=== PATIENT | female | born 1960 | race African-American/Black ===

== ENCOUNTER 2016-06-12 16:26 | Inpatient (IN) | payer OTHER, MEDICARE ==
[2016-06-12] VITALS (23 sets, daily range): BP systolic 87–130; BP diastolic 43–77; PULSE 108–151; RESP 20–21; TEMP 98–104.6; O2SAT 100
[~2016-06-12] VITALS: Ht 175.3 cm; Wt 95.3 kg
[~2016-06-12 16:26] MED LIST: 1-ME1LIQ PO; ASPI1TAB7 PO; BACL10TA PO; LISI-363 PO; MECL12.574 PO; PERC10TA26 PO; PREG75 PO; RANI150T PO; SERT-132 PO; TEMA15CA PO
[2016-06-12] MEDS ORDERED: SUCCINYLCHOLINE CHLORIDE 200 MG/10 ML VIAL ONE (16:29)
[2016-06-12] MEDS ORDERED: ETOMIDATE 20 MG/10 ML VIAL ONE (16:29)
[2016-06-12] MEDS ORDERED: VANCOMYCIN INJ 1 MG in SODIUM CHLOR 0.9% 250 ML INJ 250 ML IV STA (16:57)
[2016-06-12] MEDS ORDERED: SODIUM CHLOR 0.9% 1000 ML INJ 1,000 ML IV ONE ×3 (16:57)
[2016-06-12] MEDS ORDERED: PIPERACIL-TAZO 4.5 GM PREMIX 100 ML IV STA (16:57)
[2016-06-12] MEDS ORDERED: AZITHROMYCIN INJ 500 MG in SODIUM CHLOR 0.9% 250 ML INJ 250 ML IV STA (16:57)
[2016-06-12] MEDS ORDERED: SUCCINYLCHOLINE CHLORIDE 200 MG/10 ML VIAL IV PUSH ONE (17:00)
[2016-06-12] MEDS ORDERED: ACETAMINOPHEN 650 MG SUPP RECTAL ONE (17:00)
[2016-06-12] MEDS ORDERED: ETOMIDATE 20 MG/10 ML VIAL IV PUSH ONE (17:00)
[2016-06-12 17:17] LABS: AUTOMATED NEUTROPHIL # 10.3 TH/MM3 (1.8-7.7); BASOPHIL % 0.2 % (0.0-2.0); HEMATOCRIT 35.4 % (35.0-46.0); HEMO FLAGS DIFF FINAL; LYMPH % 9.7 % (9.0-44.0); LYMPHOCYTE # 1.2 TH/MM3 (1.0-4.8); MEAN CELL VOLUME 81.3 FL (80.0-100.0); MEAN CORPUSCULAR HEMOGLOBIN 26.1 PG (27.0-34.0); MEAN CORPUSCULAR HGB CONC 32.1 % (32.0-36.0); MONO % 8.5 % (0.0-8.0); NEUT % 81.6 % (16.0-70.0); PLATELET COUNT 204 TH/MM3 (150-450); RED BLOOD COUNT 4.35 MIL/MM3 (4.00-5.30); RED CELL DISTRIBUTION WIDTH 16.8 % (11.6-17.2); WHITE BLOOD COUNT 12.6 TH/MM3 (4.0-11.0)
--- NOTE | 2016-06-12 17:20 | RADRPT ---
EXAM DATE/TIME: 06/12/2016 16:50 [facility] COMPARISON: No previous studies available for comparison. INDICATIONS : Evaluate for intubation placement. MEDICAL HISTORY : None. SURGICAL HISTORY : None. ENCOUNTER: Initial ACUITY: 1 day PAIN SCORE: Non-responsive. LOCATION: Bilateral chest FINDINGS: The lungs are clear without infiltrate, nodule, or mass. There is no appreciable pleural effusion fo r technique. Heart and mediastinum are unremarkable. Left subclavian line is present with tip overla pping the expected region of the SVC. No definite pneumothorax is seen for technique.ET tube is prese nt with tip overlapping approximately 3 cm above the caren. NG tube is present with tip in the stoma ch. CONCLUSION: No acute cardiopulmonary disease. Jose Martinez MD on June 12, 2016 at 17:18 Board Certified Radiologist. This report was verified electronically.
[2016-06-12 17:27] LABS: BACTERIA, URINE MOD /hpf; BLOOD, URINE MOD (NEG); GLUCOSE,URINE NEG (NEG); HYALINE CAST, URINE 104 /lpf (RARE); KETONE, URINE 40 mg/dL (NEG); NITRITE,URINE NEG (NEG); PH, URINE 5.5 (5.0-8.5); SQUAMOUS EPITHELIAL CELL URINE 3 /hpf (0-5); URINE COLOR YELLOW (YELLW/STRAW)
[2016-06-12 17:29] LABS: ALT (GPT) 115 U/L (10-53); ANION GAP 20 MEQ/L (5-15); AST (GOT) 234 U/L (15-37); BICARBONATE 15.5 MEQ/L (21.0-32.0); BLOOD UREA NITROGEN 67 MG/DL (7-18); CHLORIDE 121 MEQ/L (98-107); GLOMERULAR FILTRATION RATE 18 ML/MIN (>89); POTASSIUM 3.6 MEQ/L (3.5-5.1)
[2016-06-12 17:30] LABS: COMMENT (UR) CATH-CULTURE IND; CULTURE IF INDICATED CATH CULTURE IND
[2016-06-12] MEDS ORDERED: fentaNYL DRIP 250 ML IV SCH (17:30)
[2016-06-12] MEDS ORDERED: MIDAZOLAM HCL 2 MG/2 ML VIAL IV PUSH ONE (17:30)
[2016-06-12 17:31] LABS: ALKALINE PHOSPHATASE 70 U/L (45-117); TOTAL BILIRUBIN ADULT 0.5 MG/DL (0.2-1.0)
[2016-06-12 17:37] LABS: SODIUM (NA) 156 MEQ/L (136-145)
[2016-06-12] MEDS ORDERED: MISCELLANEOUS NURSING INFORMATION XX SCH (18:00)
[2016-06-12] MEDS ORDERED: CHLORHEXIDINE GLUCONATE 2 % 1 PACK (2 CLOTHS) TOP PRN (18:00)
[2016-06-12] MEDS ORDERED: RESP: ALBUTEROL 2.5 MG/IPRATROPIUM 0.5 MG NEB (PRN) INH (18:00)
--- NOTE | 2016-06-12 18:00 | RADRPT ---
EXAM DATE/TIME: 06/12/2016 17:30 [facility] COMPARISON: CHEST SINGLE AP, June 12, 2016, 16:50. INDICATIONS : Evaluate OG tube reposition MEDICAL HISTORY : None. SURGICAL HISTORY : None. ENCOUNTER: Subsequent ACUITY: 1 day PAIN SCORE: Non-responsive. LOCATION: Bilateral chest FINDINGS: The lungs are clear without infiltrate, nodule, or mass. There is no appreciable pleural effusion fo r technique. Heart and mediastinum are unremarkable. Lines and tubes are present not significantly c hanged. CONCLUSION: No acute cardiopulmonary disease.. Jose Martinez MD on June 12, 2016 at 17:57 Board Certified Radiologist. This report was verified electronically.
[2016-06-12 18:18] LABS: BLOOD GAS BASE EXCESS -10.9 mmol/L (-2-2); BLOOD GAS CARBOXYHEMOGLOBIN 0.4 % (0-4); BLOOD GAS HCO3 13 mmol/L (22-26); BLOOD GAS METHEMOGLOBIN 0.6 % (0-2); BLOOD GAS O2 HGB SATURATION 99 % (90-100); BLOOD GAS OXYGEN CONTENT 16.2 Vol % (12.0-20.0); BLOOD GAS PCO2 20 mmHg (38-42); BLOOD GAS PO2 514 mmHG (61-120); BLOOD GAS TOTAL HGB 10.7 G/DL (12.0-16.0); TEMP CORR TO 98.6
[2016-06-12 18:19] LABS: CRITICAL VALUE YES; DRAW SITE RT RADIAL; FIO2 100 %; NUMBER OF ARTERIAL PUNCTURES 1; OXYGEN DEVICE VENTILATOR; STAT YES; ULNAR PULSE PRESENT; VENT SETTINGS 500/18/+5 AC
[2016-06-12] MEDS ORDERED: MIDAZOLAM 100 MG/ML INJ 100 ML ONE (18:48)
--- NOTE | 2016-06-12 18:58 | PD ---
HPI Chief Complaint: Altered Mental Status Time Seen by Provider: 16:57 Travel History International Travel<30 days: No Contact w/Intl Traveler<30days: No Traveled to known affect area: No History of Present Illness HPI 56-year-old female came to the emergency room brought in by EMS emergently as altered mental status, hypoxia and temperature 101. Patient was unable to communicate due to her altered mental status. As per EMS not much history was available from the family but she has history of CVA as baseline but can communicate. Past few days she has not been talking much. Patient's oxygen saturation was in the low 70s upon EMS arrival. They had her on oxygen via nonrebreather and sats of 93%. GCS was 6. PFSH Past Medical History Narrative Medical List of her past medical, surgical, social and family history was reviewed from the nursing note. 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) Diminished Hearing: Yes Endocrine: No Gastrointestinal Disorders: Yes Genitourinary: No Musculoskeletal: No Neurologic: No Psychiatric: No Reproductive: No Respiratory: No Tetanus Vaccination: Unknown ?: Not : 3 Para: 2 Miscarriage: 1 Past Surgical History Surgical History: Unable to Obtain AICD: No Arteriovenous Shunt: No Gynecologic Surgery: Yes (C SECTION X 1) Hysterectomy: Yes (PARTIAL) Insulin Pump: No Joint Replacement: No Pacemaker: No Other Surgery: Yes Social History Alcohol Use: No Tobacco Use: No Substance Use: No Allergies-Medications (Allergen,Severity, Reaction): Coded Allergies: DO NOT USE (Verified Allergy, Mild, Hallucinations, 06/12/16) Comments List of her allergies reviewed from the nursing note. Reported Meds & Prescriptions Reported Meds & Active Scripts Active Reported Temazepam 15 Mg Cap 15 Mg PO HS PRN Amlodipine (Amlodipine Besylate) 10 Mg Tab 10 Mg PO DAILY Meclizine (Meclizine HCl) 25 Mg Tab 25 Mg PO QID PRN Ranitidine (Ranitidine HCl) 150 Mg Tab 150 Mg PO BID Baclofen 10 Mg Tab 10 Mg PO TID Sertraline (Sertraline HCl) 100 Mg Tab 100 Mg PO DAILY Lyrica (Pregabalin) 75 Mg Cap 75 Mg PO BID Narrative Medication List of her home medications reviewed from the nursing note. Review of Systems Except as stated in HPI: all other systems reviewed are Neg Physical Exam Narrative GENERAL: Unresponsive, severe distress SKIN: Focused skin assessment warm/dry. HEAD: Atraumatic. Normocephalic. EYES: Pupils equal and round. No scleral icterus. No injection or drainage. ENT: No nasal bleeding or discharge. Dry mucous membrane with coated tongue. Extremely poor dentition with gingivitis and halitosis NECK: Trachea midline. No JVD. CARDIOVASCULAR: Regular rate and rhythm. Tachycardia. No murmur appreciated. RESPIRATORY: No accessory muscle use. Clear to auscultation. Breath sounds equal bilaterally. GASTROINTESTINAL: Abdomen soft, non-tender, nondistended. Hepatic and splenic margins not palpable. MUSCULOSKELETAL: No obvious deformities. No clubbing. No cyanosis. No edema. NEUROLOGICAL: Patient is unresponsive GCS of 3 PSYCHIATRIC: Unable to assess Data Data Last Documented VS Vital Signs Date Time Temp Pulse Resp B/P Pulse Ox O2 Delivery O2 Flow Rate FiO2 06/12/16 18:30 100.8 125 118/66 100 06/12/16 16:51 100 Orders Etomidate Inj (Amidate Inj) (06/12/16 16:29) Succinylcholine Inj (Quelicin Inj) (06/12/16 16:29) Complete Blood Count With Diff (06/12/16 16:52) Comprehensive Metabolic Panel (06/12/16 16:52) Urinalysis - C+S If Indicated (06/12/16 16:52) Lactic Acid Sepsis Protocol (06/12/16 16:52) Chest, Single Ap (06/12/16 16:52) Blood Culture (06/12/16 16:52) Iv Access Insert/Monitor (06/12/16 16:52) Oxygen Administration (06/12/16 16:52) Oximetry (06/12/16 16:52) Blood Glucose (06/12/16 16:52) Acetaminophen Supp (Tylenol Supp) (06/12/16 17:00) Ecg Monitoring (06/12/16 16:57) Ct Brain W/O Iv Contrast(Rout) (06/12/16 16:57) Azithromycin Inj (Zithromax Inj) (06/12/16 16:57) Vancomycin Inj (Vancomycin Inj) (06/12/16 16:57) Piperacil-Tazo 4.5 Gm Premix (Zosyn 4.5 (06/12/16 16:57) Sodium Chlor 0.9% 1000 Ml Inj (Ns 1000 M (06/12/16 16:57) Sodium Chlor 0.9% 1000 Ml Inj (Ns 1000 M (06/12/16 16:57) Sodium Chlor 0.9% 1000 Ml Inj (Ns 1000 M (06/12/16 16:57) Arterial Blood Gas (Abg) (06/12/16 ) Urinary Catheter Insert/Apply (06/12/16 16:59) ^ Orogastric Tube (06/12/16 16:59) Succinylcholine Inj (Quelicin Inj) (06/12/16 17:00) Etomidate Inj (Amidate Inj) (06/12/16 17:00) Chest, Single Ap (06/12/16 ) Midazolam Inj (Versed Inj) (06/12/16 17:30) Fentanyl Inj (Fentanyl Inj) (06/12/16 17:30) Midazolam Inj (Versed Inj) (06/12/16 17:30) Neurological Rass Scale Q30MX2,Q2HX4,Q4H (06/12/16 17:21) Neurological Rass Scale Q30MX2,Q2HX4,Q4H (06/12/16 17:21) Fentanyl Drip (Fentanyl Drip) (06/12/16 17:30) Urine Culture (06/12/16 16:55) Ct Thorax/ Chest Wo Iv Contras (06/12/16 ) Ct Abd/Pel W/O Iv Contrast (06/12/16 ) Oral Contrast - Adult (06/12/16 17:49) Admit To Inpatient (06/12/16 ) Parts Designer / Telemetry LUCY.Q8H (06/12/16 17:47) ^ Orogastric Tube (06/12/16 ) Diet Npo Except Meds (06/12/16 Dinner) Sodium Chloride 0.9% Flush (Ns Flush) (06/12/16 18:00) Sodium Chloride 0.9% Flush (Ns Flush) (06/12/16 21:00) Famotidine Inj (Pepcid Inj) (06/12/16 21:00) Albuterol-Ipratropium Neb (Duoneb Neb) (06/12/16 22:00) Comprehensive Metabolic Panel (06/13/16 06:00) Complete Blood Count With Diff (06/13/16 06:00) Chest, Single Ap (06/13/16 ) Resp Ventilation- Volume (06/12/16 ) Consult Pt Eval & Treat (06/12/16 17:47) Ot Request For Service (06/12/16 17:47) Consult Infectious Disease (06/12/16 ) Scd Bilateral/Knee High LUCY.BID (06/12/16 17:47) ^ Initiate Protocol (06/12/16 17:47) ^ Instruction (06/12/16 17:47) [facility] Nursing Information (06/12/16 18:00) Chlorhexidine 2% Cloth (Chlorhexidine 2% (06/13/16 04:00) Chlorhexidine 2% Cloth (Chlorhexidine 2% (06/12/16 18:00) [facility] Pcr Surveillance (06/12/16 17:47) Neurological Rass Scale LUCY.Q2H.E (06/12/16 17:47) ^ Elevate Head Of Bed (06/12/16 17:47) Chlorhexidine 0.12% Liq (Peridex 0.12% L (06/12/16 20:00) Restraints Non-Violent LUCY.Q3H (06/12/16 17:47) Ventilator Weaning Readiness LUCY.DAILY@0800 (06/12/16 17:47) Resp Spont Breath Trial (Sbt) (06/13/16 06:00) Arterial Blood Gas (Abg) (06/13/16 06:00) Inpatient Certification (06/12/16 ) Piperacil-Tazo 2.25 Gm Premix (Zosyn 2.2 (06/12/16 23:00) Albuterol-Ipratropium Neb (Duoneb Neb) (06/12/16 18:00) Consult Nephrology (06/12/16 ) Water Sterile For I... W/Sodium Bicarbon (06/12/16 20:00) Admit Order (Ed Use Only) (06/12/16 18:32) (Hub Use Only)Inp Phy Cons/Ref (06/12/16 ) (Hub Use Only)Inp Phy Cons/Ref (06/12/16 ) Labs Laboratory Tests Test 06/12/16 06/12/16 06/12/16 14:37 16:55 18:06 Herpes Simplex Virus I DNA Negative (PCR) Herpes Simplex Virus II DNA Negative (PCR) Urine Osmolality 521 MOSM/KG Urine Random Sodium 31 MEQ/L Sodium Level 156 MEQ/L Potassium Level 3.6 MEQ/L Chloride Level 121 MEQ/L Carbon Dioxide Level 15.5 MEQ/L Anion Gap 20 MEQ/L Blood Urea Nitrogen 67 MG/DL Creatinine 3.19 MG/DL Estimat Glomerular Filtration 18 ML/MIN Rate Random Glucose 113 MG/DL Lactic Acid Level 6.6 mmol/L Calcium Level 8.6 MG/DL Total Bilirubin 0.5 MG/DL Aspartate Amino Transf 234 U/L (AST/SGOT) Alanine Aminotransferase 115 U/L (ALT/SGPT) Alkaline Phosphatase 70 U/L Total Protein 8.0 GM/DL Albumin 2.8 GM/DL Urine Opiates Screen NEG Urine Barbiturates Screen NEG Urine Amphetamines Screen NEG Urine Benzodiazepines Screen POS Urine Cocaine Screen NEG Urine Cannabinoids Screen NEG White Blood Count 12.6 TH/MM3 Red Blood Count 4.35 MIL/MM3 Hemoglobin 11.3 GM/DL Hematocrit 35.4 % Mean Corpuscular Volume 81.3 FL Mean Corpuscular Hemoglobin 26.1 PG Mean Corpuscular Hemoglobin 32.1 % Concent Red Cell Distribution Width 16.8 % Platelet Count 204 TH/MM3 Mean Platelet Volume 9.5 FL Neutrophils (%) (Auto) 81.6 % Lymphocytes (%) (Auto) 9.7 % Monocytes (%) (Auto) 8.5 % Eosinophils (%) (Auto) 0.0 % Basophils (%) (Auto) 0.2 % Neutrophils # (Auto) 10.3 TH/MM3 Lymphocytes # (Auto) 1.2 TH/MM3 Monocytes # (Auto) 1.1 TH/MM3 Eosinophils # (Auto) 0.0 TH/MM3 Basophils # (Auto) 0.0 TH/MM3 CBC Comment DIFF FINAL Differential Comment Urine Color YELLOW Urine Turbidity HAZY Urine pH 5.5 Urine Specific [place] 1.021 Urine Protein 100 mg/dL Urine Glucose (UA) NEG mg/dL Urine Ketones 40 mg/dL Urine Occult Blood MOD Urine Nitrite NEG Urine Bilirubin NEG Urine Urobilinogen 2.0 MG/DL Urine Leukocyte Esterase NEG Urine RBC 1 /hpf Urine WBC 3 /hpf Urine Squamous Epithelial 3 /hpf Cells Urine Bacteria MOD /hpf Urine Hyaline Casts 104 /lpf Microscopic Urinalysis Comment CATH-CULTURE IND Blood Gas Puncture Site RT RADIAL Blood Gas Patient Temperature 98.6 Blood Gas HCO3 13 mmol/L Blood Gas Base Excess -10.9 mmol/L Blood Gas Oxygen Saturation 99 % Arterial Blood pH 7.42 Arterial Blood Partial 20 mmHg Pressure CO2 Arterial Blood Partial 514 mmHG Pressure O2 Arterial Blood Oxygen Content 16.2 Vol % Arterial Blood 0.4 % Carboxyhemoglobin Arterial Blood Methemoglobin 0.6 % Blood Gas Hemoglobin 10.7 G/DL Oxygen Delivery Device VENTILATOR Blood Gas Ventilator Setting 500/18/+5 AC Blood Gas Inspired Oxygen 100 % MDM Medical Decision Making Medical Screen Exam Complete: Yes Emergency Medical Condition: Yes Medical Record Reviewed: Yes Interpretation(s) Twelve-lead EKG was reviewed by me. Normal sinus rhythm, left axis deviation, tachycardia, nonspecific ST-T wave changes. Heart rate of 135 bpm. Differential Diagnosis Sepsis, pneumonia, UTI, electrolyte abnormality, dehydration Narrative Course 6:54 PM as soon as patient arrived given her GCS status and respiratory status I made the decision to intubate her. After she was successfully intubated and OG tube and Cortes tube inserted patient was started on fluid and antibiotics for sepsis protocol. A central line was inserted by me given her poor peripheral IV status. Soon after the family had arrived and I spoke with the and her cousin and updated them about patient's condition. Chest x-ray was reviewed by me which showed her ET tube and central line in good position. I asked the nurse to push the NG tube by 5 cm and a repeat chest x-ray was ordered. I have spoken with the meat seafood associate to admit the patient. Patient is in acute renal failure with severe dehydration. UA suggestive of UTI. Critical Care Narrative Aggregate critical care time was 75 minutes. Time to perform other separately billable procedures was not included in the critical care time. My time did not include minutes spent treating any other patients simultaneously or on activities that did not directly contribute to the patient's treatment. The services I provided to this patient were to treat and/or prevent clinically significant deterioration that could result in: Altered mental status, respiratory failure, sepsis, dehydration, renal failure I provided critical care services requiring my management, as noted below: Chart data review, documentation time, medication orders and management, vital sign assessments/reviewing monitor data, ordering and reviewing lab tests, ordering and interpreting/reviewing x-rays and diagnostic studies, care of the patient and discussion of the patient with the admitting physicians. Procedures Procedure Narrative After the risks and benefits were discussed the following procedure was performed: INTUBATION: The patient was put in optimal position for the procedure. Rapid sequence intubation was initiated by me using 20 milligrams of etomidate IV and 100 milligrams of succinylcholine IV. The patient was intubated with a 7.5 cuffed endotracheal tube. Tube placement was confirmed by visualization of the tube and balloon passing through the cords, capnometry and subsequent chest x-ray. Breath sounds were equal and well aerated bilaterally postintubation. No breath sounds over stomach. Patient tolerated procedure well. CENTRAL VENOUS LINE: The site was prepped with Betadine and sterilely draped. It was infiltrated with 1% lidocaine plain. The deep vein was cannulated using normal Seldinger technique. A triple lumen central line was placed in the left subclavian site and secured with simple interrupted suture. The site was sterilely dressed. The patient tolerated the procedure well. EKG Prior to Arrival: No Physician Communication Physician Communication Dr. Hair Diagnosis Primary Impression: Altered mental status Qualified Code: R40.2432 - Lenoir coma scale total score 3-8, at arrival to emergency department Additional Impressions: Respiratory failure Qualified Code: J96.00 - Acute respiratory failure, unspecified whether with hypoxia or hypercapnia Renal failure Dehydration Severe sepsis UTI (urinary tract infection) Qualified Code: N39.0 - Urinary tract infection without hematuria, site unspecified Admitting Information Admitting Physician Requests: Admit Cristóbal Guevara MD Jun 12, 2016 18:58
[2016-06-12 19:06] LABS: LACTIC ACID GHOST NOT REPORTABLE
[2016-06-12] MEDS: MIDAZOLAM 100 MG/ML INJ 100 ML IV SCH ×2 (19:07→23:44)
[2016-06-12] MEDS ORDERED: AMLO10TA2 PO (19:12)
[2016-06-12] MEDS ORDERED: RANI150T PO (19:12)
[2016-06-12] MEDS ORDERED: TEMA15CA PO (19:12)
[2016-06-12] MEDS ORDERED: SERT-129 PO (19:12)
[2016-06-12] MEDS ORDERED: BACL10TA PO (19:12)
[2016-06-12] MEDS ORDERED: MECL-62 PO (19:12)
[2016-06-12] MEDS ORDERED: LYRI75CA PO (19:12)
[2016-06-12] MEDS ORDERED: DIATRIZOATE MEGLUM/DIATRIZOATE SOD 9 ML CUP ONE (19:49)
[2016-06-12] MEDS: CHLORHEXIDINE 0.12% (ORAL KIT) 15 ML CUP MT SCH (20:00)
--- NOTE | 2016-06-12 20:18 | HHI.HP ---
HPI Service Critical Care Medicine Primary Care Physician Unknown Admission Diagnosis sepsis, respiratory failure, altered mental status Diagnosis: Travel History International Travel<30 Days: No Contact w/Intl Traveler <30 Da: No Traveled to Known Affected Are: No History of Present Illness 56-year-old female brought in by EMS emergently as altered mental status, hypoxia and temperature 104. Patient has a history of CVA many years ago. Per caregiver she didn't feel well since yesterday and wasn't taking any of medications including baclofen. Patient was unable to communicate due to her altered mental status. As per EMS not much history was available from the family but she has history of CVA as baseline but communicates. In the emergency department patient's oxygen saturation was low 70s upon EMS arrival. They had her on oxygen via nonrebreather and sats of 93%. GCS was 6 and she was intubated by ER attending for an airway protection. Past Family Social History Allergies: Coded Allergies: DO NOT USE (Verified Allergy, Mild, Hallucinations, 06/12/16) Past Medical History Hypertension, History of cerebrovascular accident, Bedridden status Past Surgical History History of Partial hysterectomy Reported Medications Reported Meds & Active Scripts Active Reported Temazepam 15 Mg Cap 15 Mg PO HS PRN Amlodipine (Amlodipine Besylate) 10 Mg Tab 10 Mg PO DAILY Meclizine (Meclizine HCl) 25 Mg Tab 25 Mg PO QID PRN Ranitidine (Ranitidine HCl) 150 Mg Tab 150 Mg PO BID Baclofen 10 Mg Tab 10 Mg PO TID Sertraline (Sertraline HCl) 100 Mg Tab 100 Mg PO DAILY Lyrica (Pregabalin) 75 Mg Cap 75 Mg PO BID Active Ordered Medications Current Medications Medications (Trade) Dose Ordered Sig/[place] Route PRN Reason Start Time Stop Time Status Last Admin Dose Admin Midazolam HCl 100 ml @ 0 mls/hr TITRATE IV 06/12/16 17:30 06/12/16 19:07 Fentanyl Citrate (fentaNYL DRIP) 250 ml @ 0 mls/hr TITRATE IV 06/12/16 17:30 Sodium Chloride (NS Flush) 2 ml UNSCH PRN IV FLUSH FLUSH AFTER USING IV ACCESS 06/12/16 18:00 Sodium Chloride (NS Flush) 2 ml BID IV FLUSH 06/12/16 21:00 Famotidine (Pepcid Inj) 20 mg Q12HR IV PUSH 06/12/16 21:00 Miscellaneous Information 1 [id number] XX 06/12/16 18:00 Chlorhexidine Gluconate (Chlorhexidine 2% Cloth) 3 pack Taper DAILY@04 TOP 06/13/16 04:00 06/09/17 03:59 Chlorhexidine Gluconate (Chlorhexidine 2% Cloth) 3 pack UNSCH PRN TOP HYGIENIC CARE 06/12/16 18:00 Chlorhexidine Gluconate 15 ml 15 ml BID@08,20 MT 06/12/16 20:00 Piperacillin Sod/ Tazobactam Sod 50 ml @ 100 mls/hr Q6H IV 06/12/16 23:00 Sodium Bicarbonate/ Sterile Water (Sodium Bicarbonate 8.4% Inj/Sterile Water For Inj) 1,000 ml @ 150 mls/hr Q6H40M IV 06/12/16 20:00 06/12/16 20:24 Pregabalin (Lyrica) 75 mg BID PO 06/12/16 21:00 Sertraline HCl (Zoloft) 100 mg DAILY PO 06/12/16 20:15 Baclofen 10 mg 10 mg TID PO 06/12/16 20:15 Sodium Chloride (NS 1000 ml Inj) 1,000 ml @ 185 mls/hr Q5H25M IV 06/12/16 20:30 06/12/16 21:00 Family History Noncontributory Social History Negative 3 Physical Exam Vital Signs Vital Signs Date Time Temp Pulse Resp B/P Pulse Ox O2 Delivery O2 Flow Rate FiO2 06/12/16 19:44 75 06/12/16 19:41 100.0 117 20 109/59 100 Ventilator 75 06/12/16 19:00 100.4 122 116/64 100 06/12/16 18:45 100.8 123 117/64 100 06/12/16 18:30 100.8 125 118/66 100 06/12/16 18:15 100.9 126 116/66 100 06/12/16 17:30 102.2 130 123/67 100 06/12/16 17:15 103.1 134 130/72 100 06/12/16 17:09 103.1 135 128/75 100 06/12/16 17:09 100 06/12/16 16:57 103.6 145 128/74 100 06/12/16 16:51 100 100 06/12/16 16:50 103.3 138 100 06/12/16 16:47 102.6 06/12/16 16:44 100.9 138 124/77 100 06/12/16 16:42 142 105/73 100 06/12/16 16:41 143 105/73 100 06/12/16 16:33 104.6 141 87/43 100 06/12/16 16:29 151 115/70 Physical Exam GENERAL: Elderly woman sedated and intubated SKIN: Warm and dry. HEAD: Normocephalic. EYES: No scleral icterus. No injection or drainage. NECK: Supple, trachea midline. No JVD or lymphadenopathy. CARDIOVASCULAR: Regular rate and rhythm without murmurs, gallops, or rubs. RESPIRATORY: Breath sounds equal bilaterally. No accessory muscle use. GASTROINTESTINAL: Abdomen soft, non-tender, nondistended. MUSCULOSKELETAL: No cyanosis, or edema. BACK: Nontender without obvious deformity. No CVA tenderness. EXTREMITIES: No clubbing cyanosis or edema Laboratory Laboratory Tests Test 06/12/16 06/12/16 06/12/16 16:55 18:06 19:02 White Blood Count 12.6 Red Blood Count 4.35 Hemoglobin 11.3 Hematocrit 35.4 Mean Corpuscular Volume 81.3 Mean Corpuscular Hemoglobin 26.1 Mean Corpuscular Hemoglobin 32.1 Concent Red Cell Distribution Width 16.8 Platelet Count 204 Mean Platelet Volume 9.5 Neutrophils (%) (Auto) 81.6 Lymphocytes (%) (Auto) 9.7 Monocytes (%) (Auto) 8.5 Eosinophils (%) (Auto) 0.0 Basophils (%) (Auto) 0.2 Neutrophils # (Auto) 10.3 Lymphocytes # (Auto) 1.2 Monocytes # (Auto) 1.1 Eosinophils # (Auto) 0.0 Basophils # (Auto) 0.0 CBC Comment DIFF FINAL Differential Comment Urine Color YELLOW Urine Turbidity HAZY Urine pH 5.5 Urine Specific [place] 1.021 Urine Protein 100 Urine Glucose (UA) NEG Urine Ketones 40 Urine Occult Blood MOD Urine Nitrite NEG Urine Bilirubin NEG Urine Urobilinogen 2.0 Urine Leukocyte Esterase NEG Urine RBC 1 Urine WBC 3 Urine Squamous Epithelial 3 Cells Urine Bacteria MOD Urine Hyaline Casts 104 Microscopic Urinalysis Comment CATH-CULTURE IND Sodium Level 156 Potassium Level 3.6 Chloride Level 121 Carbon Dioxide Level 15.5 Anion Gap 20 Blood Urea Nitrogen 67 Creatinine 3.19 Estimat Glomerular Filtration 18 Rate Random Glucose 113 Lactic Acid Level 6.6 5.1 Calcium Level 8.6 Total Bilirubin 0.5 Aspartate Amino Transf 234 (AST/SGOT) Alanine Aminotransferase 115 (ALT/SGPT) Alkaline Phosphatase 70 Total Protein 8.0 Albumin 2.8 Blood Gas Puncture Site RT RADIAL Blood Gas Patient Temperature 98.6 Blood Gas HCO3 13 Blood Gas Base Excess -10.9 Blood Gas Oxygen Saturation 99 Arterial Blood pH 7.42 Arterial Blood Partial 20 Pressure CO2 Arterial Blood Partial 514 Pressure O2 Arterial Blood Oxygen Content 16.2 Arterial Blood 0.4 Carboxyhemoglobin Arterial Blood Methemoglobin 0.6 Blood Gas Hemoglobin 10.7 Oxygen Delivery Device VENTILATOR Blood Gas Ventilator Setting 500/18/+5 AC Blood Gas Inspired Oxygen 100 Date/Time Procedure Status Source Growth 06/12/16 16:55 Urine Culture Received Urine Catheterized Urine Pending 06/12/16 16:55 Aerobic Blood Culture Received Blood Peripheral Pending 06/12/16 16:55 Anaerobic Blood Culture Received Blood Peripheral Pending Result Diagram: 06/12/16 1655 06/12/16 1655 Imaging Last [address] 06/12/16 1657 Signed Impressions: Service Date/Time: May 21:37 - CONCLUSION: Unremarkable study. Jose Martinez MD Chest X-Ray 06/12/16 1652 Signed Impressions: Service Date/Time: May 16:50 - CONCLUSION: No acute cardiopulmonary disease. Jose Martinez MD Chest X-Ray 06/12/16 0000 Signed Impressions: Service Date/Time: May 17:30 - CONCLUSION: No acute cardiopulmonary disease.. Jose Martinez MD Chest CT 06/12/16 0000 Signed Impressions: Service Date/Time: May 21:39 - CONCLUSION: Right upper lobe parenchymal process may represent pneumonia, however follow up is suggested with repeat noncontrast chest CT in 2-4 weeksafter appropriate clinical therapy. Jose Martinez MD Abdomen/Pelvis CT 06/12/16 0000 Signed Impressions: Service Date/Time: May 21:39 - CONCLUSION: Essentially unremarkable study. Jose Martinez MD Assessment and Plan Assessment and Plan Respiratory failure - Intubated for airway protection - Continue mechanical ventilation - No weaning until neurologically improved - Also no weaning until hemodynamically stable SIRS/sepsis - Hyperthermia - Consider baclofen withdrawal - symptoms similar to sepsis with hyperthermia and hypotension and altered mental status - Broad-spectrum antibiotic - Follow up on cultures - ID consult - LP - lab results pending - CT abdomen chest and pelvis without any obvious source of infection Acute kidney injury - Check CPK - IV fluid resuscitation - Nephrology consult appreciated DVT GI prophylaxis - Subcutaneous heparin/Pepcid Critical Care: The total critical care time was 35 minutes. Time to perform other separately billable procedures was not included in the critical care time. Robert Orellana MD Jun 12, 2016 20:18
[2016-06-12] MEDS: SODIUM BICARBONATE 8.4% INJ 150 MEQ in WATER STERILE FOR INJ 850 ML IV SCH ×2 (20:24→23:35)
--- NOTE | 2016-06-12 20:58 | MB ---
cc: CAR MATT MD DATE OF CONSULTATION 06/12/16 REASON FOR CONSULTATION Elevated BUN and creatinine and high sodium. HISTORY OF PRESENT ILLNESS This is a 56-year-old female with past medical history of hypertension, cerebrovascular accident who was brought to the hospital by family because of altered mental status. I was called to see the patient because of elevated BUN and creatinine. Her BUN was 67 and creatinine was 3.1 on presentation, previously in 2005 her creatinine was 0.8. The patient does not have any known history of renal disease. Her sodium was also 156 and lactic acid was high. The patient was found to be in respiratory failure and she was intubated. Her blood pressure has been stable. Her blood pressure was low on presentation and she got IV fluid bolus and she got antibiotic. Most of the history was taken from the patient's chart and some from the patient's cousin who is present at the bedside. According to her, the patient has been in the bed since she had the stroke and she has some home health care taking care of her along with her . She communicates a little bit by nodding her head or blinking her eyes, but today she was found that she has more lethargic and drowsy and she was brought to the hospital. When she came in here the blood pressure was low and her oxygen saturation was in 70s and she was intubated. The patient is currently on the ventilator. According to her cousin, the patient had decreased oral intake since yesterday. PAST MEDICAL HISTORY 1. Hypertension, 2. History of cerebrovascular accident, 3. Bedridden status. PAST SURGICAL HISTORY 1. History of 2. Partial hysterectomy REVIEW OF SYSTEMS Cannot be taken. SOCIAL HISTORY The patient is . There is no history of smoking or alcoholism. FAMILY HISTORY Noncontributory. ALLERGIES There is no known allergies. MEDICATIONS Currently 1. Sodium bicarbonate 150 mL per hour 2. DuoNeb nebulizer. 3. Pepcid 20 mg q. 12-hour. 4. Zosyn 2.25 grams q. 6-hour. 5. She received one dose of Vancomycin and Erythromycin PHYSICAL EXAMINATION GENERAL: The patient is intubated and sedated. VITAL SIGNS: Last blood pressure 117/64, temperature is 100.8 with T-max of 103.1. HEENT: Pupils are mid constricted. Nonicteric sclerae, conjunctivae pale. NECK: Supple. JVD is not elevated. LUNGS: The patient has bilateral decreased air entry with basal rales and scattered wheezing. HEART: S1, S2 regular rhythm. ABDOMEN: Distended, soft, lax. There is no tenderness. EXTREMITIES: There is no edema in the legs. LABORATORY DATA WBC count is 12.6, hemoglobin 11.3, platelet count of 204, neutrophil __.6. Sodium is 156. Potassium 3.6, chloride 121, bicarb 15.5, BUN 67, creatinine 3.1. Lactic acid is 6.6, AST is 234, ALT is 115, total protein is 88 with albumin of 2.8. Urinalysis showing hazy urine with moderate occult blood, 3 WBC, one RBC. Blood culture and urine culture pending. IMAGING STUDIES The patient had chest x-ray done and it shows lung rosenthal clear. ASSESSMENT/PLAN 1. Respiratory failure with hypoxemia. 2. Acute kidney injury 3. Metabolic acidosis with lactic acidosis 4. Hypernatremia. 5. History of CVA 6. Respiratory failure 7. Elevated liver enzymes. 8. Dehydration and rule out sepsis. The patient has hypotension and most likely she has acute kidney injury because of the ATN and there is a possibility of dehydration also playing a role. The ATN could be from the hypotension or infection. At present, I agree with continuing the IV fluid and antibiotics and stabilize the patient hemodynamically. She has a Cortes catheter. Follow the urine output and the BUN and creatinine. I will order the ultrasound of the kidneys and urine sodium and osmolality. Thank you for the consultation and I will follow the patient while she is in the hospital. MD KEESHA Smiley/ /7:07 PM /8:38 PM
[2016-06-12] MEDS: SODIUM CHLORIDE 0.9% FLUSH 10 ML FLUSH IV FLUSH SCH ×2 (21:00→23:34)
[2016-06-12] MEDS ORDERED: FAMOTIDINE 20 MG/2 ML VIAL IV PUSH SCH (21:00)
[2016-06-12] MEDS: SODIUM CHLOR 0.9% 1000 ML INJ 1,000 ML IV SCH ×2 (21:00→23:35)
[2016-06-12] MEDS: PREGABALIN 75 MG CAP PO SCH (21:00)
--- NOTE | 2016-06-12 22:02 | RADRPT ---
EXAM DATE/TIME: 06/12/2016 21:37 [facility] COMPARISON: No previous studies available for comparison. INDICATIONS : Altered mental status RADIATION DOSE: 56.35 CTDIvol (mGy) MEDICAL HISTORY : Cerebrovascular disease. SURGICAL HISTORY : Hysterectomy. ENCOUNTER: Initial ACUITY: 1 day PAIN SCALE: Non-responsive LOCATION: Bilateral cranial TECHNIQUE: Multiple contiguous axial images were obtained of the head. Using automated exposure control and adj ustment of the mA and/or kV according to patient size, radiation dose was kept as low as reasonably a chievable to obtain optimal diagnostic quality images. FINDINGS: There is no evidence for intracranial hemorrhage, mass effect, mass lesions, edema, or extra-axial fl uid collections. The visualized bony structures appear intact. The ventricles are normal size for t he patient's age. There are no signs of acute infarction for technique. CONCLUSION: Unremarkable study. Jose Martinez MD on June 12, 2016 at 21:59 Board Certified Radiologist. This report was verified electronically.
--- NOTE | 2016-06-12 22:06 | RADRPT ---
EXAM DATE/TIME: 06/12/2016 21:39 [facility] COMPARISON: No previous studies available for comparison. INDICATIONS : Respiratory failure. RADIATION DOSE: 6.87 CTDIvol (mGy) ; Combined studies - Thorax/Abdomen/Pelvis MEDICAL HISTORY : Cerebrovascular disease. SURGICAL HISTORY : Hysterectomy. ENCOUNTER: Initial ACUITY: 1 day PAIN SCALE: Non-responsive LOCATION: Bilateral chest TECHNIQUE: Volumetric scanning of the chest was performed. Using automated exposure control and adjustment of t he mA and/or kV according to patient size, radiation dose was kept as low as reasonably achievable to obtain optimal diagnostic quality images. FINDINGS: Parenchymal process is present in the right upper lobe extending to the right hilum with retract ion. There may be a small underlying central mass and/or adenopathy in the right hilum/paratracheal a gurwinder. Central line is present with tip in the SVC. There is no pleural effusion. CONCLUSION: Right upper lobe parenchymal process may represent pneumonia, however follow up is suggested with rep eat noncontrast chest CT in 2-4 weeksafter appropriate clinical therapy. Jose Martinez MD on June 12, 2016 at 22:00 Board Certified Radiologist. This report was verified electronically.
--- NOTE | 2016-06-12 22:10 | RADRPT ---
EXAM DATE/TIME: 06/12/2016 21:39 [facility] COMPARISON: CT THORAX W/O CONTRAST, June 12, 2016, 21:39. INDICATIONS : Sepsis. Renal failure. Evaluate for intra-abdominal pathology. ORAL CONTRAST: Prescribed oral contrast ingested. RADIATION DOSE: 6.87 CTDIvol (mGy) ; Combined studies - Thorax/Abdomen/Pelvis MEDICAL HISTORY : Cerebrovascular disease. SURGICAL HISTORY : Hysterectomy. ENCOUNTER: Initial ACUITY: 1 day PAIN SCALE: Non-responsive LOCATION: All quadrants. TECHNIQUE: Volumetric scanning of the abdomen and pelvis was performed. Using automated exposure control and ad justment of the mA and/or kV according to patient size, radiation dose was kept as low as reasonably achievable to obtain optimal diagnostic quality images. FINDINGS: CT Abdomen: The liver, spleen, pancreas, kidneys, adrenals are unremarkable. There is no evidence for any appreciable pathological adenopathy, free fluid, or bowel obstruction. There is no evidence for any stones in the kidneys or the course of the ureters on either side. There is no hydronephrosis. T here is minimal atelectasis in the left lung base. CT pelvis: There is no evidence for mass, abscess formation, or any significant adenopathy within the pelvis. CONCLUSION: Essentially unremarkable study. Jsoe Martinez MD on June 12, 2016 at 22:05 Board Certified Radiologist. This report was verified electronically.
[2016-06-12 22:53] LABS: AMPHETAMINE, URINE NEG (NEG); BARBITURATES, URINE NEG (NEG); COCAINE, URINE NEG (NEG)
[2016-06-12] MEDS: PIPERACIL-TAZO 2.25 GM PREMIX 50 ML IV SCH (23:00)
[2016-06-12] MEDS: RESP: ALBUTEROL 2.5 MG/IPRATROPIUM 0.5 MG NEB (SCH) INH (23:21)
--- NOTE | 2016-06-12 23:21 | PD.PROCEDR ---
Procedure Note Procedure A time-out was completed verifying correct patient, procedure, site, positioning , and special equipment if applicable. The patient was placed in the LEFT lateral decubitus position in a semi- position with help from the nursing staff. The area was cleansed and draped in usual sterile fashion. 1% lidocaine was used anesthetize the surrounding skin area. A <20-gauge 3.5-inch> spinal needle was placed in the <L3-L4/L4-L5> interspace. Clear cerebral spinal fluid was obtained and the opening pressure was noted to be <16>. Four tubes were filled with 4 mL of CSF. These were sent for the usual tests, including 1 tube to be held for further analysis if needed. Estimated Blood Loss: 0 ml The patient tolerated the procedure well and there were no complications. Robert Orellana MD Jun 12, 2016 23:21
[2016-06-12] MEDS: SERTRALINE HCL 100 MG TAB PO SCH (23:34)
[2016-06-12] MEDS: BACLOFEN 10 MG TAB PO SCH (23:34)
[2016-06-12] MEDS: CHLORHEXIDINE GLUCONATE 2 % 1 PACK (2 CLOTHS) TOP SCH (23:35)
[2016-06-13] VITALS (16 sets, daily range): BP systolic 95–115; BP diastolic 61–68; PULSE 103–117; RESP 16–22; TEMP 98–100.5; O2SAT 98–100
[2016-06-13 00:16] LABS: GROSS BLOOD TUBE #1 0 (0); GROSS BLOOD TUBE #2 0 (0); GROSS BLOOD TUBE #3 0 (0); GROSS BLOOD TUBE #4 0 (0); SUPERNATE COLOR TUBE #1 CLEAR (CLEAR); SUPERNATE COLOR TUBE #2 CLEAR (CLEAR); SUPERNATE COLOR TUBE #3 CLEAR (CLEAR); SUPERNATE COLOR TUBE #4 CLEAR (CLEAR); VOLUME TUBE # 3 1.2 ML; VOLUME TUBE # 4 1.2 ML; WBC TUBE #4 15 /MM3 (0-10)
[2016-06-13] MEDS: SODIUM BICARBONATE 8.4% INJ 150 MEQ in WATER STERILE FOR INJ 850 ML IV SCH (00:17)
[2016-06-13 00:18] LABS: LACTIC ACID,CSF 5.6 MMOL/L (0.0-3.0)
--- NOTE | 2016-06-13 00:33 | RADRPT ---
EXAM DATE/TIME: 06/12/2016 23:51 [facility] COMPARISON: No previous studies available for comparison. INDICATIONS : Increased BUN and Creatinine. MEDICAL HISTORY : . Hypertension. Hearing loss. Cerebrovascular accident. Respiratory failure. SURGICAL HISTORY : section. Partial hyterectomy. ENCOUNTER: Initial ACUITY: 1 day PAIN SCORE: Nonresponsive. LOCATION: Bilateral flank MEASUREMENTS: RIGHT KIDNEY: 11.1 x 5.2 x 5.9 cm LEFT KIDNEY: 10.1 x 5.6 x 5.6 cm FINDINGS: RIGHT KIDNEY: Renal cortex is normal in thickness and echotexture. No hydronephrosis, stone, or mass. Mild pelvoca liectasis. LEFT KIDNEY: Renal cortex is normal in thickness and echotexture. No hydronephrosis, stone, or mass. BLADDER: Totally decompressed and not seen. CONCLUSION: 1. Mild pelvocaliectasis on the right. No hydronephrosis involving either kidney. Simone Woody Jr., MD on June 13, 2016 at 0:30 Board Certified Radiologist. This report was verified electronically.
[2016-06-13 01:07] LABS: CSF LYMPHOCYTES 89 %; CSF MONOCYTES 11 %; CSF NEUTROPHILS 0 %
[2016-06-13] MEDS: RESP: ALBUTEROL 2.5 MG/IPRATROPIUM 0.5 MG NEB (SCH) INH ×4 (03:06→21:56)
[2016-06-13] MEDS: PIPERACIL-TAZO 2.25 GM PREMIX 50 ML IV SCH ×4 (04:04→21:18)
[2016-06-13 04:33] LABS: BASOPHIL % 0.1 % (0.0-2.0); HEMATOCRIT 29.9 % (35.0-46.0); HEMO FLAGS DIFF FINAL; LYMPH % 9.5 % (9.0-44.0); MEAN CELL VOLUME 79.4 FL (80.0-100.0); MEAN CORPUSCULAR HEMOGLOBIN 26.6 PG (27.0-34.0); MEAN CORPUSCULAR HGB CONC 33.4 % (32.0-36.0); MONO % 4.7 % (0.0-8.0); NEUT % 85.7 % (16.0-70.0); PLATELET COUNT 121 TH/MM3 (150-450); RED BLOOD COUNT 3.77 MIL/MM3 (4.00-5.30); RED CELL DISTRIBUTION WIDTH 16.5 % (11.6-17.2); WHITE BLOOD COUNT 10.5 TH/MM3 (4.0-11.0)
--- NOTE | 2016-06-13 04:59 | RADRPT ---
EXAM DATE/TIME: 06/13/2016 04:14 [facility] COMPARISON: CHEST SINGLE AP, June 12, 2016, 17:30. INDICATIONS : Follow up respiratory failure. MEDICAL HISTORY : None. SURGICAL HISTORY : None. ENCOUNTER: Subsequent ACUITY: 2 days PAIN SCORE: Non-responsive. LOCATION: chest FINDINGS: His single portable frontal view the chest shows an endotracheal tube with the tip 4 cm proximal to t he caren. Nasogastric tube coiled in the stomach. Left subclavian central line. No pneumothorax. Maggy gs are clear. Heart is normal in size. No effusions. CONCLUSION: Clear lungs. Simone Woody Jr., MD on June 13, 2016 at 4:56 Board Certified Radiologist. This report was verified electronically.
[2016-06-13 05:08] LABS: ANION GAP 15 MEQ/L (5-15); AST (GOT) 461 U/L (15-37); BICARBONATE 23.7 MEQ/L (21.0-32.0); BLOOD UREA NITROGEN 62 MG/DL (7-18); CHLORIDE 119 MEQ/L (98-107); GLOMERULAR FILTRATION RATE 29 ML/MIN (>89)
[2016-06-13 05:10] LABS: POTASSIUM 2.6 MEQ/L (3.5-5.1); SODIUM (NA) 158 MEQ/L (136-145)
[2016-06-13] MEDS ORDERED: POTASSIUM CHLOR 40 MEQ PREMIX 100 ML IV ONE (05:30)
[2016-06-13 05:38] LABS: BLOOD GAS BASE EXCESS 1.6 mmol/L (-2-2); BLOOD GAS CARBOXYHEMOGLOBIN 1.3 % (0-4); BLOOD GAS HCO3 24 mmol/L (22-26); BLOOD GAS METHEMOGLOBIN 1.1 % (0-2); BLOOD GAS O2 HGB SATURATION 91 % (90-100); BLOOD GAS OXYGEN CONTENT 12.9 Vol % (12.0-20.0); BLOOD GAS PCO2 29 mmHg (38-42); BLOOD GAS PO2 64 mmHg (61-120); BLOOD GAS TOTAL HGB 10.1 G/DL (12.0-16.0); CRITICAL VALUE YES; DRAW SITE LT RADIAL; FIO2 40 %; NUMBER OF ARTERIAL PUNCTURES 1; OXYGEN DEVICE VENTILATOR; STAT NO; TEMP CORR TO 98.6; ULNAR PULSE PRESENT; VENT SETTINGS AC 20/500/5PEEP
[2016-06-13 05:39] LABS: ALKALINE PHOSPHATASE 57 U/L (45-117); ALT (GPT) 140 U/L (10-53); CREATINE KINASE 8059 U/L (26-192); TOTAL BILIRUBIN ADULT 0.5 MG/DL (0.2-1.0)
[2016-06-13 05:59] LABS: CKMB 213.5 NG/ML (0.5-3.6)
[2016-06-13] MEDS ORDERED: POTASSIUM CHLOR 20 MEQ PREMIX 100 ML ONE (08:06)
[2016-06-13] MEDS: PREGABALIN 75 MG CAP PO SCH ×2 (08:13→19:40)
[2016-06-13] MEDS: SERTRALINE HCL 100 MG TAB PO SCH (08:13)
[2016-06-13] MEDS: CHLORHEXIDINE 0.12% (ORAL KIT) 15 ML CUP MT SCH ×2 (08:13→19:21)
[2016-06-13] MEDS: BACLOFEN 10 MG TAB PO SCH ×3 (08:14→17:05)
[2016-06-13] MEDS ORDERED: GLUCAGON 1 MG/ML VIAL OTHER PRN (08:15)
[2016-06-13] MEDS ORDERED: POTASSIUM CHLOR 20 MEQ PREMIX 100 ML IV SCH (08:15)
[2016-06-13] MEDS ORDERED: DEXTROSE 50% IN WATER 50 ML VIAL(D50) IV PUSH PRN (08:15)
--- NOTE | 2016-06-13 08:39 | HHI.CCPN ---
Subjective Remarks/Hospital Course 56-year-old female brought in by EMS emergently as altered mental status, hypoxia and temperature 104. Patient has a history of CVA many years ago. Per caregiver she didn't feel well since yesterday and wasn't taking any of medications including baclofen. Patient was unable to communicate due to her altered mental status. As per EMS not much history was available from the family but she has history of CVA as baseline but communicates. In the emergency department patient's oxygen saturation was low 70s upon EMS arrival. They had her on oxygen via nonrebreather and sats of 93%. GCS was 6 and she was intubated by ER attending for an airway protection. 06/13 Patient is sedated with Versed and on Bicarb drip. Renal function is improving with Cr: 2.12 from 3.19 UO: 1350ml since yesterday. Afebrile. Objective Vital Signs Date Time Temp Pulse Resp B/P Pulse Ox O2 Delivery O2 Flow Rate FiO2 06/13/16 04:13 98 40 06/13/16 04:00 98.0 107 21 111/65 06/12/16 21:01 Ventilator Intake and Output 06/12/16 06/12/16 06/13/16 08:00 16:00 00:00 Intake Total 3500 ml Output Total 700 ml Balance 2800 ml Result Diagram: 06/13/16 0317 06/13/167 Other Results Laboratory Tests Test 06/12/16 06/12/16 06/12/16 06/12/16 16:55 18:06 19:02 22:05 White Blood Count 12.6 TH/MM3 Red Blood Count 4.35 MIL/MM3 Hemoglobin 11.3 GM/DL Hematocrit 35.4 % Mean Corpuscular Volume 81.3 FL Mean Corpuscular Hemoglobin 26.1 PG Mean Corpuscular Hemoglobin 32.1 % Concent Red Cell Distribution Width 16.8 % Platelet Count 204 TH/MM3 Mean Platelet Volume 9.5 FL Neutrophils (%) (Auto) 81.6 % Lymphocytes (%) (Auto) 9.7 % Monocytes (%) (Auto) 8.5 % Eosinophils (%) (Auto) 0.0 % Basophils (%) (Auto) 0.2 % Neutrophils # (Auto) 10.3 TH/MM3 Lymphocytes # (Auto) 1.2 TH/MM3 Monocytes # (Auto) 1.1 TH/MM3 Eosinophils # (Auto) 0.0 TH/MM3 Basophils # (Auto) 0.0 TH/MM3 CBC Comment DIFF FINAL Differential Comment Urine Color YELLOW Urine Turbidity HAZY Urine pH 5.5 Urine Specific [place] 1.021 Urine Protein 100 mg/dL Urine Glucose (UA) NEG mg/dL Urine Ketones 40 mg/dL Urine Occult Blood MOD Urine Nitrite NEG Urine Bilirubin NEG Urine Urobilinogen 2.0 MG/DL Urine Leukocyte Esterase NEG Urine RBC 1 /hpf Urine WBC 3 /hpf Urine Squamous Epithelial 3 /hpf Cells Urine Bacteria MOD /hpf Urine Hyaline Casts 104 /lpf Microscopic Urinalysis Comment CATH-CULTURE IND Urine Osmolality 521 MOSM/KG Urine Random Sodium 31 MEQ/L Sodium Level 156 MEQ/L Potassium Level 3.6 MEQ/L Chloride Level 121 MEQ/L Carbon Dioxide Level 15.5 MEQ/L Anion Gap 20 MEQ/L Blood Urea Nitrogen 67 MG/DL Creatinine 3.19 MG/DL Estimat Glomerular Filtration 18 ML/MIN Rate Random Glucose 113 MG/DL Lactic Acid Level 6.6 mmol/L 5.1 mmol/L Calcium Level 8.6 MG/DL Total Bilirubin 0.5 MG/DL Aspartate Amino Transf 234 U/L (AST/SGOT) Alanine Aminotransferase 115 U/L (ALT/SGPT) Alkaline Phosphatase 70 U/L Total Protein 8.0 GM/DL Albumin 2.8 GM/DL Urine Opiates Screen NEG Urine Barbiturates Screen NEG Urine Amphetamines Screen NEG Urine Benzodiazepines Screen POS Urine Cocaine Screen NEG Urine Cannabinoids Screen NEG Blood Gas Puncture Site RT RADIAL Blood Gas Patient Temperature 98.6 Blood Gas HCO3 13 mmol/L Blood Gas Base Excess -10.9 mmol/L Blood Gas Oxygen Saturation 99 % Arterial Blood pH 7.42 Arterial Blood Partial 20 mmHg Pressure CO2 Arterial Blood Partial 514 mmHG Pressure O2 Arterial Blood Oxygen Content 16.2 Vol % Arterial Blood 0.4 % Carboxyhemoglobin Arterial Blood Methemoglobin 0.6 % Blood Gas Hemoglobin 10.7 G/DL Oxygen Delivery Device VENTILATOR Blood Gas Ventilator Setting 500/18/+5 AC Blood Gas Inspired Oxygen 100 % Nasal Screen MRSA (PCR) NEGATIVE Test 06/12/16 06/13/16 06/13/16 22:31 03:17 05:27 CSF Volume (Tube 1) 1.0 ML CSF Supernatant Color (tube 1) CLEAR CSF Gross Blood (Tube 1) 0 CSF Volume (Tube 2) 1.0 ML CSF Supernatant Color (tube 2) CLEAR CSF Gross Blood (Tube 2) 0 CSF Volume (Tube 3) 1.2 ML CSF Supernatant Color (tube 3) CLEAR CSF Gross Blood (Tube 3) 0 CSF RBC (Tube 3) /MM3 CSF Volume (Tube 4) 1.2 ML CSF Supernatant Color (tube 4) CLEAR CSF Gross Blood (Tube 4) 0 CSF WBC (Tube 4) 15 /MM3 CSF RBC (Tube 4) 0 /MM3 CSF Neutrophils 0 % CSF Lymphocytes 89 % CSF Monocytes 11 % CSF Lactate Dehydrogenase 17 U/L CSF Lactic Acid 5.6 MMOL/L White Blood Count 10.5 TH/MM3 Red Blood Count 3.77 MIL/MM3 Hemoglobin 10.0 GM/DL Hematocrit 29.9 % Mean Corpuscular Volume 79.4 FL Mean Corpuscular Hemoglobin 26.6 PG Mean Corpuscular Hemoglobin 33.4 % Concent Red Cell Distribution Width 16.5 % Platelet Count 121 TH/MM3 Mean Platelet Volume 8.7 FL Neutrophils (%) (Auto) 85.7 % Lymphocytes (%) (Auto) 9.5 % Monocytes (%) (Auto) 4.7 % Eosinophils (%) (Auto) 0.0 % Basophils (%) (Auto) 0.1 % Neutrophils # (Auto) 9.0 TH/MM3 Lymphocytes # (Auto) 1.0 TH/MM3 Monocytes # (Auto) 0.5 TH/MM3 Eosinophils # (Auto) 0.0 TH/MM3 Basophils # (Auto) 0.0 TH/MM3 CBC Comment DIFF FINAL Differential Comment Sodium Level 158 MEQ/L Potassium Level 2.6 MEQ/L Chloride Level 119 MEQ/L Carbon Dioxide Level 23.7 MEQ/L Anion Gap 15 MEQ/L Blood Urea Nitrogen 62 MG/DL Creatinine 2.12 MG/DL Estimat Glomerular Filtration 29 ML/MIN Rate Random Glucose 104 MG/DL Calcium Level 7.6 MG/DL Total Bilirubin 0.5 MG/DL Aspartate Amino Transf 461 U/L (AST/SGOT) Alanine Aminotransferase 140 U/L (ALT/SGPT) Alkaline Phosphatase 57 U/L Total Creatine Kinase 8059 U/L Creatine Kinase MB 213.5 NG/ML Creatine Kinase MB % 2.6 % Total Protein 6.8 GM/DL Albumin 2.4 GM/DL Blood Gas Puncture Site LT RADIAL Blood Gas Patient Temperature 98.6 Blood Gas HCO3 24 mmol/L Blood Gas Base Excess 1.6 mmol/L Blood Gas Oxygen Saturation 91 % Arterial Blood pH 7.54 Arterial Blood Partial 29 mmHg Pressure CO2 Arterial Blood Partial 64 mmHg Pressure O2 Arterial Blood Oxygen Content 12.9 Vol % Arterial Blood 1.3 % Carboxyhemoglobin Arterial Blood Methemoglobin 1.1 % Blood Gas Hemoglobin 10.1 G/DL Oxygen Delivery Device VENTILATOR Blood Gas Ventilator Setting AC 20/500/5PEEP Blood Gas Inspired Oxygen 40 % Imaging Last Impressions Chest X-Ray 06/13/16 0000 Signed Impressions: Service Date/Time: Monday, June 13, 2016 04:14 - CONCLUSION: Clear lungs. Simone Woody Jr., MD Head CT 06/12/16 1657 Signed Impressions: Service Date/Time: May 21:37 - CONCLUSION: Unremarkable study. Jose Martinez MD Renal Ultrasound 06/12/16 0000 Signed Impressions: Service Date/Time: May 23:51 - CONCLUSION: 1. Mild pelvocaliectasis on the right. No hydronephrosis involving either kidney. Simone Woody Jr., MD Chest CT 06/12/16 0000 Signed Impressions: Service Date/Time: May 21:39 - CONCLUSION: Right upper lobe parenchymal process may represent pneumonia, however follow up is suggested with repeat noncontrast chest CT in 2-4 weeksafter appropriate clinical therapy. Jose Martinez MD Abdomen/Pelvis CT 06/12/16 0000 Signed Impressions: Service Date/Time: May 21:39 - CONCLUSION: Essentially unremarkable study. Jose Martinez MD Objective Remarks GENERAL: Elderly woman sedated and intubated SKIN: Warm and dry. HEAD: Normocephalic. EYES: No scleral icterus. No injection or drainage. NECK: Supple, trachea midline. No JVD or lymphadenopathy. CARDIOVASCULAR: Regular rate and rhythm without murmurs, gallops, or rubs. RESPIRATORY: Breath sounds equal bilaterally. No accessory muscle use. GASTROINTESTINAL: Abdomen soft, non-tender, nondistended. MUSCULOSKELETAL: No cyanosis, or edema. BACK: Nontender without obvious deformity. No CVA tenderness. EXTREMITIES: No clubbing cyanosis or edema A/P Assessment and Plan VDRF Encephalopathy SIRS/sepsis Acute kidney injury Rhabdo Hypernatremia Hypokalemia Anemia Lactic acidemia Leukocytosis- resolved Elevated LFT Plan Neuro: On Versed infusion for sedation. Daily sedation vacation. Check Ammonia and TSH levels. CT brain: No acute findings. UDS+ +Benzos s/p LP showed clear CSF and 15 WBC. Pulm: Continue with vent support keep sat >92% Bronchodilators, ICU vent bundle. Decrease RR 16 CV: Monitor HR and BP keep MAP>65mmHg. Serial lactic acid monitoring ( trending down) : Monitor renal function, I/O's, avoid nephrotoxins. Renal US: No hydronephrosis. Renal is following- Dr. Corral Renal function improving with Cr: 2.12 from 3.19 Change IVF D5W@125ml/hr, add Fee water 250ml Q8, monitor Sodium level. KCL 40meq IV x1 given. Monitor BMP and CK's. GI: On Pepcid 20meq IV qhs, start tube feeds- Nepro with goal rate 40ml/hr Monitor LFT's, check US liver ID: Continue with empiric abx ( Zosyn)monitor for signs of infections ( Fever, WBC) Patient was given Vanco, Zosyn, Zithromax in ED. Follow up on cxs. ID is consulted. Heme: Monitor CBC, coags Endo: SSI for glycemic control, check TSH level. GI Prophylaxis with Pepcid DVT prophylaxis with heparin SQ CCT 30 mins Jose Smith MD Jun 13, 2016 08:39
[2016-06-13] MEDS: DEXTROSE 5% IN WATE 1000ML INJ 1,000 ML IV SCH ×3 (08:48→21:18)
[2016-06-13] MEDS: FREE WATER G-TUBE SCH ×4 (08:48→19:21)
[2016-06-13] MEDS: INSULIN NovoLIN REGULAR SUPPLEMENTAL SCALE SQ SCH ×3 (09:00→20:16)
[2016-06-13] MEDS ORDERED: BACLOFEN 10 MG TAB PO SCH (09:00)
[2016-06-13 09:11] LABS: INTERNATIONAL NORMALIZED RATIO 1.3 RATIO; PROTHROMBIN TIME - PATIENT 15.1 SEC (9.8-11.6)
[2016-06-13 09:16] LABS: APTT (PATIENT) 23.8 SEC (24.3-30.1)
[2016-06-13] MEDS: LACTULOSE SYRUP 20 GM/30 ML CUP PO SCH ×2 (11:54→19:39)
--- NOTE | 2016-06-13 12:38 | RADRPT ---
EXAM DATE/TIME: 06/13/2016 09:42 [facility] COMPARISON: No previous studies available for comparison. INDICATIONS : Increased lab values. MEDICAL HISTORY : Cerebrovascular accident, right sidede deficit. SURGICAL HISTORY : Hysterectomy. section. ENCOUNTER: Initial ACUITY: 1 day PAIN SCORE: Nonresponsive. LOCATION: Bilateral upper quadrant MEASUREMENTS: LIVER: 16.0 cm length COMMON DUCT: 3 mm RIGHT KIDNEY: 11.6 x 5.4 x 5.0 cm SPLEEN: 10.9 cm length FINDINGS: LIVER: Mild increased echotexture without focal lesion or ductal dilatation. COMMON DUCT: No intraluminal mass or stone visualized. GALLBLADDER: Contains no stones, demonstrates no wall thickening or pericholecystic fluid. PANCREAS: The visualized portions are within normal limits. RIGHT KIDNEY: No hydronephrosis, stone or mass. Small amount of free fluid identified medial to the lower pole of the right kidney. SPLEEN: No focal lesion. CONCLUSION: 1. Small amount free fluid identified medial to the lower pole of the right kidney. 2. Slight increased hepatic echotexture suggesting some degree of fatty infiltration. 3. Please note the body and tail of the pancreas are obscured by overlying bowel gas. The head neck a nd uncinate process are sonographically intact. Mauro Leslie MD on June 13, 2016 at 12:33 Board Certified Radiologist. This report was verified electronically.
--- NOTE | 2016-06-13 15:43 | PD.ID.CON ---
History of Present Illness Service ID Consult Requested By Dr Torre Reason for Consult sepsis Primary Care Physician Unknown Diagnoses: History of Present Illness Pt is sedated, intubated and on [facility] vent unable to provide historty Chart was reviewed 56 yo female with h/o stroke with bedridden status presented last night by EMS emergently as altered mental status, hypoxia and temperature 101. Reportedly in past few days she has npoor po intake. Patient's oxygen saturation wasn't low 70s upon EMS arrival. She initially was on 100% non rebreather, later was intubated On presentation fever of 104, leukoctosis, lactic acidosis of 3.9 and Mild pelvocaliectasis on the right; CXR clwear Spinal tap showed mild lymphocytc pleocytosis with 15 WBC Remains on vent with FiO2 50% Review of Systems ROS Limitations: Intubated, Altered Mental Status, Unresponsive Past Family Social History Allergies: Coded Allergies: DO NOT USE (Verified Allergy, Mild, Hallucinations, 06/12/16) Past Medical History Hypertension, History of cerebrovascular accident, Bedridden status Past Surgical History History of Partial hysterectomy Active Ordered Medications Medications where reviewed in EMR Antibiotics Include: zosyn Family History Non-Contributory. Social History No Tobacco. No ETOH. No Illicit Drugs. Physical Exam Vital Signs Vital Signs Date Time Temp Pulse Resp B/P Pulse Ox O2 Delivery O2 Flow Rate FiO2 06/13/16 14:00 114 06/13/16 12:46 99 40 06/13/16 12:00 100.4 114 21 105/62 99 06/13/16 12:00 40 06/13/16 12:00 114 06/13/16 10:00 115 06/13/16 08:23 100 40 06/13/16 08:00 40 06/13/16 08:00 117 06/13/16 08:00 99.5 117 22 104/63 100 06/13/16 04:13 98 40 06/13/16 04:00 98.0 107 21 111/65 100 06/13/16 00:13 99 40 06/13/16 00:00 103 06/13/16 00:00 98.0 103 21 115/68 100 06/12/16 23:21 100 40 06/12/16 22:29 98.0 108 21 113/71 100 06/12/16 22:06 100 75 06/12/16 21:40 100 100 06/12/16 21:01 99.5 114 20 108/60 100 Ventilator 75 06/12/16 20:45 99.7 117 20 102/55 100 Ventilator 75 06/12/16 19:44 75 06/12/16 19:41 100.0 117 20 109/59 100 Ventilator 75 06/12/16 19:00 100.4 122 116/64 100 06/12/16 18:45 100.8 123 117/64 100 06/12/16 18:30 100.8 125 118/66 100 06/12/16 18:15 100.9 126 116/66 100 06/12/16 17:30 102.2 130 123/67 100 06/12/16 17:15 103.1 134 130/72 100 06/12/16 17:09 103.1 135 128/75 100 06/12/16 17:09 100 06/12/16 16:57 103.6 145 128/74 100 06/12/16 16:51 100 100 06/12/16 16:50 103.3 138 100 06/12/16 16:47 102.6 06/12/16 16:44 100.9 138 124/77 100 06/12/16 16:42 142 105/73 100 06/12/16 16:41 143 105/73 100 06/12/16 16:33 104.6 141 87/43 100 06/12/16 16:29 151 115/70 Physical Exam CONSTITUTIONAL/GENERAL: This is an obese female patient, in no apparent distress. Sedated heavily on vent TUBES/LINES/DRAINS: SKIN: No jaundice, rashes, or lesions. Skin temperature appropriate. Not diaphoretic. HEAD: Atraumatic. Normocephalic. EYES: Pupils equal and round and reactive. Extraocular motions intact. No scleral icterus. No injection or drainage. Fundi not examined. ENT: Hearing not assessed. Nose without bleeding or purulent drainage. Orally intubated Moist mucosae POor dentition NECK: Trachea midline. Supple, nontender. CARDIOVASCULAR: Regular rate and rhythm without murmurs, gallops, or rubs. No JVD. Peripheral pulses symmetric. RESPIRATORY/CHEST: Symmetric, unlabored respirations. Clear to auscultation. Breath sounds equal bilaterally. No wheezes, rales, or rhonchi. GASTROINTESTINAL: Abdomen soft, non-tender, midly distended. No hepato- splenomegaly, or palpable masses. No guarding. Bowel sounds present. GENITOURINARY: Without palpable bladder distension. Cortes catheter in place with clear yellow urine MUSCULOSKELETAL: Extremities without clubbing, cyanosis, or edema. No joint tenderness or effusion noted. No calf tenderness. No mottling or clubbing. LYMPHATICS: No palpable cervical or supraclavicular adenopathy. NEUROLOGICAL:Heavily sedated Does not follows commands. PSYCHIATRIC: unable to assess Laboratory Laboratory Tests Test 06/12/16 06/12/16 06/12/16 06/12/16 16:55 18:06 19:02 22:05 Urine Osmolality 521 Urine Random Sodium 31 Sodium Level 156 Potassium Level 3.6 Chloride Level 121 Carbon Dioxide Level 15.5 Anion Gap 20 Blood Urea Nitrogen 67 Creatinine 3.19 Estimat Glomerular Filtration 18 Rate Random Glucose 113 Lactic Acid Level 6.6 5.1 Calcium Level 8.6 Total Bilirubin 0.5 Aspartate Amino Transf 234 (AST/SGOT) Alanine Aminotransferase 115 (ALT/SGPT) Alkaline Phosphatase 70 Total Protein 8.0 Albumin 2.8 Urine Opiates Screen NEG Urine Barbiturates Screen NEG Urine Amphetamines Screen NEG Urine Benzodiazepines Screen POS Urine Cocaine Screen NEG Urine Cannabinoids Screen NEG White Blood Count 12.6 Red Blood Count 4.35 Hemoglobin 11.3 Hematocrit 35.4 Mean Corpuscular Volume 81.3 Mean Corpuscular Hemoglobin 26.1 Mean Corpuscular Hemoglobin 32.1 Concent Red Cell Distribution Width 16.8 Platelet Count 204 Mean Platelet Volume 9.5 Neutrophils (%) (Auto) 81.6 Lymphocytes (%) (Auto) 9.7 Monocytes (%) (Auto) 8.5 Eosinophils (%) (Auto) 0.0 Basophils (%) (Auto) 0.2 Neutrophils # (Auto) 10.3 Lymphocytes # (Auto) 1.2 Monocytes # (Auto) 1.1 Eosinophils # (Auto) 0.0 Basophils # (Auto) 0.0 CBC Comment DIFF FINAL Differential Comment Urine Color YELLOW Urine Turbidity HAZY Urine pH 5.5 Urine Specific [place] 1.021 Urine Protein 100 Urine Glucose (UA) NEG Urine Ketones 40 Urine Occult Blood MOD Urine Nitrite NEG Urine Bilirubin NEG Urine Urobilinogen 2.0 Urine Leukocyte Esterase NEG Urine RBC 1 Urine WBC 3 Urine Squamous Epithelial 3 Cells Urine Bacteria MOD Urine Hyaline Casts 104 Microscopic Urinalysis Comment CATH-CULTURE IND Blood Gas Puncture Site RT RADIAL Blood Gas Patient Temperature 98.6 Blood Gas HCO3 13 Blood Gas Base Excess -10.9 Blood Gas Oxygen Saturation 99 Arterial Blood pH 7.42 Arterial Blood Partial 20 Pressure CO2 Arterial Blood Partial 514 Pressure O2 Arterial Blood Oxygen Content 16.2 Arterial Blood 0.4 Carboxyhemoglobin Arterial Blood Methemoglobin 0.6 Blood Gas Hemoglobin 10.7 Oxygen Delivery Device VENTILATOR Blood Gas Ventilator Setting 500/18/+5 AC Blood Gas Inspired Oxygen 100 Nasal Screen MRSA (PCR) NEGATIVE Test 06/12/16 06/13/16 06/13/16 06/13/16 22:31 03:17 05:27 08:40 CSF Volume (Tube 1) 1.0 CSF Supernatant Color (tube 1) CLEAR CSF Gross Blood (Tube 1) 0 CSF Volume (Tube 2) 1.0 CSF Supernatant Color (tube 2) CLEAR CSF Gross Blood (Tube 2) 0 CSF Volume (Tube 3) 1.2 CSF Supernatant Color (tube 3) CLEAR CSF Gross Blood (Tube 3) 0 CSF RBC (Tube 3) CSF Volume (Tube 4) 1.2 CSF Supernatant Color (tube 4) CLEAR CSF Gross Blood (Tube 4) 0 CSF WBC (Tube 4) 15 CSF RBC (Tube 4) 0 CSF Neutrophils 0 CSF Lymphocytes 89 CSF Monocytes 11 CSF Lactate Dehydrogenase 17 CSF Lactic Acid 5.6 White Blood Count 10.5 Red Blood Count 3.77 Hemoglobin 10.0 Hematocrit 29.9 Mean Corpuscular Volume 79.4 Mean Corpuscular Hemoglobin 26.6 Mean Corpuscular Hemoglobin 33.4 Concent Red Cell Distribution Width 16.5 Platelet Count 121 Mean Platelet Volume 8.7 Neutrophils (%) (Auto) 85.7 Lymphocytes (%) (Auto) 9.5 Monocytes (%) (Auto) 4.7 Eosinophils (%) (Auto) 0.0 Basophils (%) (Auto) 0.1 Neutrophils # (Auto) 9.0 Lymphocytes # (Auto) 1.0 Monocytes # (Auto) 0.5 Eosinophils # (Auto) 0.0 Basophils # (Auto) 0.0 CBC Comment DIFF FINAL Differential Comment Sodium Level 158 Potassium Level 2.6 Chloride Level 119 Carbon Dioxide Level 23.7 Anion Gap 15 Blood Urea Nitrogen 62 Creatinine 2.12 Estimat Glomerular Filtration 29 Rate Random Glucose 104 Calcium Level 7.6 Total Bilirubin 0.5 Aspartate Amino Transf 461 (AST/SGOT) Alanine Aminotransferase 140 (ALT/SGPT) Alkaline Phosphatase 57 Total Creatine Kinase 8059 Creatine Kinase MB 213.5 Creatine Kinase MB % 2.6 Total Protein 6.8 Albumin 2.4 Blood Gas Puncture Site LT RADIAL Blood Gas Patient Temperature 98.6 Blood Gas HCO3 24 Blood Gas Base Excess 1.6 Blood Gas Oxygen Saturation 91 Arterial Blood pH 7.54 Arterial Blood Partial 29 Pressure CO2 Arterial Blood Partial 64 Pressure O2 Arterial Blood Oxygen Content 12.9 Arterial Blood 1.3 Carboxyhemoglobin Arterial Blood Methemoglobin 1.1 Blood Gas Hemoglobin 10.1 Oxygen Delivery Device VENTILATOR Blood Gas Ventilator Setting AC 20/500/5PEEP Blood Gas Inspired Oxygen 40 Prothrombin Time 15.1 Prothromb Time International 1.3 Ratio Activated Partial 23.8 Thromboplast Time Lactic Acid Level 3.9 Ammonia 40 Thyroid Stimulating Hormone 2.590 3rd Gen Hepatitis A IgM Antibody NEGATIVE Hepatitis B Surface Antigen NEGATIVE Hepatitis B Core IgM Antibody NEGATIVE Hepatitis C Antibody NEGATIVE Date/Time Procedure Status Source Growth 06/12/16 22:31 Gram Stain - Final Resulted Cerebral Spinal Fluid Lumbar Puncture 06/12/16 22:31 CSF Culture - Preliminary Resulted Cerebral Spinal Fluid Lumbar Puncture NO GROWTH IN 24 HOURS. 06/12/16 16:55 Urine Culture - Preliminary Resulted Urine Catheterized Urine Gram Negative [place] 06/12/16 16:55 Aerobic Blood Culture - Preliminary Resulted Blood Peripheral NO GROWTH IN 1 DAY 06/12/16 16:55 Anaerobic Blood Culture - Preliminary Resulted Blood Peripheral NO GROWTH IN 1 DAY Result Diagram: 06/13/16 0317 06/13/16 0317 Imaging Last Impressions Liver Ultrasound 06/13/16 0000 Signed Impressions: Service Date/Time: Monday, June 13, 2016 09:42 - CONCLUSION: 1. Small amount free fluid identified medial to the lower pole of the right kidney. 2. Slight increased hepatic echotexture suggesting some degree of fatty infiltration. 3. Please note the body and tail of the pancreas are obscured by overlying bowel gas. The head neck and uncinate process are sonographically intact. Mauro Leslie MD Chest X-Ray 06/13/16 0000 Signed Impressions: Service Date/Time: Monday, June 13, 2016 04:14 - CONCLUSION: Clear lungs. Simone Woody Jr., MD Head CT 06/12/16 1657 Signed Impressions: Service Date/Time: May 21:37 - CONCLUSION: Unremarkable study. Jose Martinez MD Renal Ultrasound 06/12/16 0000 Signed Impressions: Service Date/Time: May 23:51 - CONCLUSION: 1. Mild pelvocaliectasis on the right. No hydronephrosis involving either kidney. Simone Woody Jr., MD Chest CT 06/12/16 0000 Signed Impressions: Service Date/Time: May 21:39 - CONCLUSION: Right upper lobe parenchymal process may represent pneumonia, however follow up is suggested with repeat noncontrast chest CT in 2-4 weeksafter appropriate clinical therapy. Jose Martinez MD Abdomen/Pelvis CT 06/12/16 0000 Signed Impressions: Service Date/Time: May 21:39 - CONCLUSION: Essentially unremarkable study. Jose Martinez MD Assessment and Plan Assessment and Plan Sepssi (fever, hypoxi, leukocytosis, lactic acidosis, multi organ yfunction ? source: sustpect UTI 2/2 GNB Lymphcytic pleocytosis in CSF - protein, glc -not available - clx neg @ 24hrs ARF/CKD Acute VDRF cont zosyn - cont vancomycin per levels Briseida Ortiz MD Jun 13, 2016 15:43
[2016-06-13 15:44] LABS: BICARBONATE 27.1 MEQ/L (21.0-32.0); POTASSIUM 3.1 MEQ/L (3.5-5.1)
[2016-06-13] MEDS ORDERED: MAGNESIUM OXIDE 400 MG TAB PO PRN (16:00)
[2016-06-13] MEDS ORDERED: POTASSIUM PHOSPHATE INJ 30 MMOL in SODIUM CHLOR 0.9% 250 ML INJ 250 ML IV PRN (16:00)
[2016-06-13] MEDS ORDERED: POTASSIUM CHLORIDE 25 MEQ EFFERVESCENT TAB PO PRN (16:00)
[2016-06-13] MEDS ORDERED: MAGNESIUM SULFATE INJ 4 GM in SODIUM CHLORIDE 0.9% INJ 92 ML IV PRN (16:00)
[2016-06-13] MEDS ORDERED: POTASSIUM CHLOR 20 MEQ PREMIX 100 ML IV PRN (16:00)
[2016-06-13] MEDS ORDERED: POTASSIUM PHOSPHATE MONOBASIC 500 MG TAB PO/TUBE PRN (16:00)
[2016-06-13] MEDS ORDERED: MAGNESIUM SULFATE INJ 2 GM in SODIUM CHLORIDE 0.9% INJ 96 ML IV PRN (16:00)
[2016-06-13] MEDS ORDERED: POTASSIUM PHOSPHATE MONOBASIC 500 MG TAB PO PRN (16:00)
[2016-06-13] MEDS: POTASSIUM CHLOR 40 MEQ PREMIX 100 ML IV PRN ×2 (16:26→18:39)
[2016-06-13 17:16] LABS: MAGNESIUM 2.5 MG/DL (1.5-2.5)
--- NOTE | 2016-06-13 18:00 | HHI.NPPN ---
Subjective General Problems: Anemia Renal Failure: Acute History of Present Illness 56-year-old female with past medical history of hypertension, cerebrovascular accident who was brought to the hospital by family because of altered mental status. I was called to see the patient because of elevated BUN and creatinine. Her BUN was 67 and creatinine was 3.1 on presentation, previously in 2005 her creatinine was 0.8. Additional Remarks Patient remain intubated and sedated. Review of Systems General General Remarks Intubated and sedated. Objective Data Data 06/12/16 06/13/16 19:00 07:00 Intake Total 3500 ml 1575 ml Output Total 1850 ml Balance 3500 ml -275 ml Intake IV Total 3500 ml 1575 ml Output Urine Total 1350 ml Gastric Drainage Total 500 ml # Voids 2 Vital Signs Date Time Temp Pulse Resp B/P Pulse Ox O2 Delivery O2 Flow Rate FiO2 06/13/16 16:00 100.5 110 16 101/61 100 06/13/16 16:00 111 06/13/16 16:00 40 06/13/16 15:56 98 40 06/13/16 14:00 114 06/13/16 12:46 99 40 06/13/16 12:00 100.4 114 21 105/62 99 06/13/16 12:00 40 06/13/16 12:00 114 06/13/16 10:00 115 06/13/16 08:23 100 40 06/13/16 08:00 40 06/13/16 08:00 117 06/13/16 08:00 99.5 117 22 104/63 100 06/13/16 04:13 98 40 06/13/16 04:00 98.0 107 21 111/65 100 06/13/16 00:13 99 40 06/13/16 00:00 103 06/13/16 00:00 98.0 103 21 115/68 100 06/12/16 23:21 100 40 06/12/16 22:29 98.0 108 21 113/71 100 06/12/16 22:06 100 75 06/12/16 21:40 100 100 06/12/16 21:01 99.5 114 20 108/60 100 Ventilator 75 06/12/16 20:45 99.7 117 20 102/55 100 Ventilator 75 06/12/16 19:44 75 06/12/16 19:41 100.0 117 20 109/59 100 Ventilator 75 06/12/16 19:00 100.4 122 116/64 100 06/12/16 18:45 100.8 123 117/64 100 06/12/16 18:30 100.8 125 118/66 100 06/12/16 18:15 100.9 126 116/66 100 -: 06/13/16 0317 06/13/16 1330 Microbiology 06/12/16 Gram Stain - Final, Resulted 06/12/16 CSF Culture - Preliminary, Resulted NO GROWTH IN 24 HOURS. Physical Exam General Appearance Remarks Intubated and sedated. Eyes Eye Exam: Pupils Equal Throat Throat Exam: Oral Mucosa [place] & Moist Neck Neck Exam: Neck Supple Pulmonary Resp Exam: Breath Sounds Equal, No Distress, Decreased Bases Cardiology CV Exam: Regular, Normal Sinus Rhythm Gastrointestinal/Abdomen GI Exam: Soft, Non-Tender, Bowel Sounds Present Extremeties Extremities Exam: No Edema Neurologic Neuro Exam: Sedated Assessment/Plan Assessment Summary: [place]ST[place]/Acute Renal Failure, Dehydration Electrolyte Assessment: Hypernatremia Problem List: (1) Dehydration (2) Respiratory failure (3) UTI (urinary tract infection) (4) Altered mental status (5) Severe sepsis (6) Hypernatremia (7) Renal failure Plan Patient has been non oliguric. BUN and Creatinine improving. Most likely has dehydration and ATN causing WESTLEY. Continue IVF. Na. is still elevated, started on GT feeding and free water. Problem Qualifiers (1) Respiratory failure: Qualified Code: J96.00 - Acute respiratory failure, unspecified whether with hypoxia or hypercapnia (2) UTI (urinary tract infection): Qualified Code: N39.0 - Urinary tract infection without hematuria, site unspecified (3) Altered mental status: Qualified Code: R40.2432 - [place] coma scale total score 3-8, at arrival to emergency department Waldo Corral MD Jun 13, 2016 18:00
[2016-06-13] MEDS: SODIUM CHLORIDE 0.9% FLUSH 10 ML FLUSH IV FLUSH SCH (19:21)
--- NOTE | 2016-06-13 19:38 | EKG ---
Date Performed: 06/12/2016 Time Performed: 17:07:39 PTAGE: 56 years EKG: SINUS TACHYCARDIA NONSPECIFIC T-WAVE ABNORMALITY Compared to prior tracing no significant c hange ABNORMAL RHYTHM ECG NO PREVIOUS TRACING DOCTOR: Chidi Paulino Interpretating Date/Time 06/13/2016 19:34:47
[2016-06-13] MEDS: FAMOTIDINE 20 MG/2 ML VIAL IV PUSH SCH (19:39)
[2016-06-13] MEDS: MIDAZOLAM 100 MG/ML INJ 100 ML IV SCH (19:40)
[2016-06-13] MEDS: CHLORHEXIDINE GLUCONATE 2 % 1 PACK (2 CLOTHS) TOP SCH (21:59)
[2016-06-14] VITALS (20 sets, daily range): BP systolic 98–104; BP diastolic 55–63; PULSE 91–109; RESP 19–23; TEMP 99.1–99.9; O2SAT 97–100
[2016-06-14] MEDS: INSULIN NovoLIN REGULAR SUPPLEMENTAL SCALE SQ SCH ×4 (01:13→19:47)
[2016-06-14] MEDS: FREE WATER G-TUBE SCH ×4 (01:13→21:01)
[2016-06-14] MEDS: PIPERACIL-TAZO 2.25 GM PREMIX 50 ML IV SCH ×4 (03:20→21:54)
[2016-06-14] MEDS ORDERED: PIPERACIL-TAZO 4.5 GM PREMIX 100 ML IV SCH (03:30)
[2016-06-14] MEDS ORDERED: VANCOMYCIN INJ 1,000 MG in SODIUM CHLOR 0.9% 250 ML INJ 250 ML IV ONE (03:30)
[2016-06-14] MEDS ORDERED: Vancomycin Consult Pharmacy 1 EA OTHER SCH (03:30)
[2016-06-14] MEDS: RESP: ALBUTEROL 2.5 MG/IPRATROPIUM 0.5 MG NEB (SCH) INH ×4 (03:46→20:32)
[2016-06-14 05:55] LABS: AUTOMATED NEUTROPHIL # 11.8 TH/MM3 (1.8-7.7); BASOPHIL % 0.2 % (0.0-2.0); HEMATOCRIT 29.1 % (35.0-46.0); LYMPHOCYTE # 0.8 TH/MM3 (1.0-4.8); MEAN CELL VOLUME 81.1 FL (80.0-100.0); MEAN CORPUSCULAR HEMOGLOBIN 26.9 PG (27.0-34.0); MEAN CORPUSCULAR HGB CONC 33.2 % (32.0-36.0); MONO % 1.9 % (0.0-8.0); NEUT % 91.9 % (16.0-70.0); PLATELET COUNT 86 TH/MM3 (150-450); RED BLOOD COUNT 3.59 MIL/MM3 (4.00-5.30); RED CELL DISTRIBUTION WIDTH 16.7 % (11.6-17.2); WHITE BLOOD COUNT 12.8 TH/MM3 (4.0-11.0)
[2016-06-14 06:03] LABS: HEMO FLAGS AUTO DIFF
[2016-06-14 06:54] LABS: ALKALINE PHOSPHATASE 61 U/L (45-117); ALT (GPT) 181 U/L (10-53); ANION GAP 10 MEQ/L (5-15); AST (GOT) 483 U/L (15-37); BICARBONATE 24.8 MEQ/L (21.0-32.0); BLOOD UREA NITROGEN 33 MG/DL (7-18); CHLORIDE 119 MEQ/L (98-107); CREATINE KINASE 6383 U/L (26-192); GLOMERULAR FILTRATION RATE 58 ML/MIN (>89); POTASSIUM 3.6 MEQ/L (3.5-5.1); SODIUM (NA) 154 MEQ/L (136-145); TOTAL BILIRUBIN ADULT 0.5 MG/DL (0.2-1.0)
[2016-06-14 07:24] LABS: CKMB 49.2 NG/ML (0.5-3.6)
[2016-06-14 07:32] LABS: TOXIC VACUOLATION PRESENT (NONE SEEN)
[2016-06-14 07:33] LABS: PLATELET ESTIMATE SMEAR LOW (NORMAL); PLATELET MORPHOLOGY NORMAL (NORMAL); SCAN/DIFF AUTO DIFF CONFIRMED
--- NOTE | 2016-06-14 07:40 | HHI.CCPN ---
Subjective Remarks/Hospital Course 56-year-old female brought in by EMS emergently as altered mental status, hypoxia and temperature 104. Patient has a history of CVA many years ago. Per caregiver she didn't feel well since yesterday and wasn't taking any of medications including baclofen. Patient was unable to communicate due to her altered mental status. As per EMS not much history was available from the family but she has history of CVA as baseline but communicates. In the emergency department patient's oxygen saturation was low 70s upon EMS arrival. They had her on oxygen via nonrebreather and sats of 93%. GCS was 6 and she was intubated by ER attending for an airway protection. 06/13 Patient is sedated with Versed and on Bicarb drip. Renal function is improving with Cr: 2.12 from 3.19 UO: 1350ml since yesterday. Afebrile. 06/14 Patient remains sedated and intubated. Afebrile. Renal function continue to improve with Cr: 1.18 today from 1.53. Objective Vital Signs Date Time Temp Pulse Resp B/P Pulse Ox O2 Delivery O2 Flow Rate FiO2 06/14/16 06:00 103 06/14/16 04:20 97 35 06/14/16 04:00 99.1 22 100/59 06/12/16 21:01 Ventilator Intake and Output 06/13/16 06/13/16 06/14/16 08:00 16:00 00:00 Intake Total 1575 ml 1548 ml 2009 ml Output Total 1150 ml 1300 ml 550 ml Balance 425 ml 248 ml 1459 ml Result Diagram: 06/14/16 0530 06/14/16 0530 Other Results Laboratory Tests Test 06/13/16 06/13/16 06/14/16 08:40 13:30 05:30 Prothrombin Time 15.1 SEC Prothromb Time International 1.3 RATIO Ratio Activated Partial 23.8 SEC Thromboplast Time Lactic Acid Level 3.9 mmol/L Ammonia 40 MCMOL/L Thyroid Stimulating Hormone 2.590 uIU/ML 3rd Gen Hepatitis A IgM Antibody NEGATIVE Hepatitis B Surface Antigen NEGATIVE Hepatitis B Core IgM Antibody NEGATIVE Hepatitis C Antibody NEGATIVE Sodium Level 157 MEQ/L 154 MEQ/L Potassium Level 3.1 MEQ/L 3.6 MEQ/L Chloride Level 119 MEQ/L 119 MEQ/L Carbon Dioxide Level 27.1 MEQ/L 24.8 MEQ/L Anion Gap 11 MEQ/L 10 MEQ/L Blood Urea Nitrogen 51 MG/DL 33 MG/DL Creatinine 1.53 MG/DL 1.18 MG/DL Estimat Glomerular Filtration 43 ML/MIN 58 ML/MIN Rate Random Glucose 118 MG/DL 134 MG/DL Calcium Level 7.7 MG/DL 7.7 MG/DL Phosphorus Level 3.4 MG/DL Magnesium Level 2.5 MG/DL White Blood Count 12.8 TH/MM3 Red Blood Count 3.59 MIL/MM3 Hemoglobin 9.7 GM/DL Hematocrit 29.1 % Mean Corpuscular Volume 81.1 FL Mean Corpuscular Hemoglobin 26.9 PG Mean Corpuscular Hemoglobin 33.2 % Concent Red Cell Distribution Width 16.7 % Platelet Count 86 TH/MM3 Mean Platelet Volume 9.6 FL Neutrophils (%) (Auto) 91.9 % Lymphocytes (%) (Auto) 6.0 % Monocytes (%) (Auto) 1.9 % Eosinophils (%) (Auto) 0.0 % Basophils (%) (Auto) 0.2 % Neutrophils # (Auto) 11.8 TH/MM3 Lymphocytes # (Auto) 0.8 TH/MM3 Monocytes # (Auto) 0.2 TH/MM3 Eosinophils # (Auto) 0.0 TH/MM3 Basophils # (Auto) 0.0 TH/MM3 CBC Comment AUTO DIFF Differential Comment AUTO DIFF CONFIRMED Toxic Vacuolation PRESENT Platelet Estimate LOW Platelet Morphology Comment NORMAL Total Bilirubin 0.5 MG/DL Aspartate Amino Transf 483 U/L (AST/SGOT) Alanine Aminotransferase 181 U/L (ALT/SGPT) Alkaline Phosphatase 61 U/L Total Creatine Kinase 6383 U/L Creatine Kinase MB 49.2 NG/ML Creatine Kinase MB % 0.8 % Total Protein 6.7 GM/DL Albumin 2.1 GM/DL Imaging Last Impressions Liver Ultrasound 06/13/16 0000 Signed Impressions: Service Date/Time: Monday, June 13, 2016 09:42 - CONCLUSION: 1. Small amount free fluid identified medial to the lower pole of the right kidney. 2. Slight increased hepatic echotexture suggesting some degree of fatty infiltration. 3. Please note the body and tail of the pancreas are obscured by overlying bowel gas. The head neck and uncinate process are sonographically intact. Mauro Leslie MD Chest X-Ray 06/13/16 0000 Signed Impressions: Service Date/Time: Monday, June 13, 2016 04:14 - CONCLUSION: Clear lungs. Simone Woody Jr., MD Head CT 06/12/16 1657 Signed Impressions: Service Date/Time: May 21:37 - CONCLUSION: Unremarkable study. Jose Martinez MD Renal Ultrasound 06/12/16 0000 Signed Impressions: Service Date/Time: May 23:51 - CONCLUSION: 1. Mild pelvocaliectasis on the right. No hydronephrosis involving either kidney. Simone Woody Jr., MD Chest CT 06/12/16 0000 Signed Impressions: Service Date/Time: May 21:39 - CONCLUSION: Right upper lobe parenchymal process may represent pneumonia, however follow up is suggested with repeat noncontrast chest CT in 2-4 weeksafter appropriate clinical therapy. Jose Martinez MD Abdomen/Pelvis CT 06/12/16 0000 Signed Impressions: Service Date/Time: May 21:39 - CONCLUSION: Essentially unremarkable study. Jose Martinez MD Objective Remarks GENERAL: Elderly woman sedated and intubated SKIN: Warm and dry. HEAD: Normocephalic. EYES: No scleral icterus. No injection or drainage. NECK: Supple, trachea midline. No JVD or lymphadenopathy. CARDIOVASCULAR: Regular rate and rhythm without murmurs, gallops, or rubs. RESPIRATORY: Breath sounds equal bilaterally. No accessory muscle use. GASTROINTESTINAL: Abdomen soft, non-tender, nondistended. MUSCULOSKELETAL: No cyanosis, or edema. BACK: Nontender without obvious deformity. No CVA tenderness. EXTREMITIES: No clubbing cyanosis or edema A/P Assessment and Plan VDRF Encephalopathy SIRS/sepsis Acute kidney injury..improving Rhabdo Hypernatremia Hypokalemia Anemia Lactic acidemia Leukocytosis- resolved Elevated LFT UTI Plan Neuro: On Versed infusion for sedation. Daily sedation vacation. Ammonia level : 40, TSH 2.5. Continue with Lactulose. CT brain: No acute findings. UDS+ +Benzos s/p LP showed clear CSF and 15 WBC. Neuro eval, check EEF Pulm: Continue with vent support keep sat >92% Bronchodilators, ICU vent bundle. SBT trials as cherie CV: Monitor HR and BP keep MAP>65mmHg. Serial lactic acid monitoring ( trending down) : Monitor renal function, I/O's, avoid nephrotoxins. Renal US: No hydronephrosis. Renal is following- Dr. Corral Renal function improving with Cr: 1.18 today rom 1.53 IVF D5W@125ml/hr, Fee water 250ml Q6, monitor Sodium level. Monitor CK's. GI: On Pepcid 20meq IV qhs, start tube feeds today if remains intubated. Monitor LFT's, US liver: Fatty liver ID: Continue abx per ID (Vanco, Zosyn)monitor for signs of infections ( Fever, WBC) Patient was given Vanco, Zosyn, Zithromax in ED. 06/12 Urine cx: GNR Heme: Monitor CBC, coags, check Hep plt ab. Endo: SSI for glycemic control, TSH level: 2.5 GI Prophylaxis with Pepcid DVT prophylaxis with SCD, CCT 30 mins Jose Smith MD Jun 14, 2016 07:40
[2016-06-14 08:55] LABS: AUTOMATED NEUTROPHIL # 12.2 TH/MM3 (1.8-7.7); BASOPHIL % 0.3 % (0.0-2.0); LYMPH % 7.7 % (9.0-44.0); MEAN CELL VOLUME 81.8 FL (80.0-100.0); MEAN CORPUSCULAR HEMOGLOBIN 25.5 PG (27.0-34.0); MEAN CORPUSCULAR HGB CONC 31.2 % (32.0-36.0); MONO % 1.6 % (0.0-8.0); NEUT % 90.4 % (16.0-70.0); PLATELET COUNT 88 TH/MM3 (150-450); RED BLOOD COUNT 3.67 MIL/MM3 (4.00-5.30); WHITE BLOOD COUNT 13.5 TH/MM3 (4.0-11.0)
[2016-06-14 09:00] LABS: HEMO FLAGS AUTO DIFF
[2016-06-14] MEDS: PREGABALIN 75 MG CAP PO SCH ×2 (09:17→19:35)
[2016-06-14] MEDS: CHLORHEXIDINE 0.12% (ORAL KIT) 15 ML CUP MT SCH ×2 (09:17→19:47)
[2016-06-14] MEDS: LACTULOSE SYRUP 20 GM/30 ML CUP PO SCH ×2 (09:17→19:35)
[2016-06-14] MEDS: BACLOFEN 10 MG TAB PO SCH ×3 (09:18→18:06)
[2016-06-14] MEDS: SERTRALINE HCL 100 MG TAB PO SCH (09:18)
[2016-06-14] MEDS: SODIUM CHLORIDE 0.9% FLUSH 10 ML FLUSH IV FLUSH SCH ×2 (09:18→19:46)
[2016-06-14] MEDS: DEXTROSE 5% IN WATE 1000ML INJ 1,000 ML IV SCH ×3 (09:19→21:55)
[2016-06-14 09:30] LABS: PLATELET ESTIMATE SMEAR LOW (NORMAL); PLATELET MORPHOLOGY NORMAL (NORMAL); SCAN/DIFF AUTO DIFF CONFIRMED; TOXIC VACUOLATION PRESENT (NONE SEEN)
[2016-06-14 11:10] LABS: HSV 1,PCR Negative (Negative)
--- NOTE | 2016-06-14 12:24 | HHI.NPPN ---
Subjective General Problems: Anemia Renal Failure: Acute History of Present Illness 56-year-old female with past medical history of hypertension, cerebrovascular accident who was brought to the hospital by family because of altered mental status. I was called to see the patient because of elevated BUN and creatinine. Her BUN was 67 and creatinine was 3.1 on presentation, previously in 2005 her creatinine was 0.8. Additional Remarks Patient remain intubated and sedated, clinically same. Review of Systems General General Remarks Intubated and sedated. Objective Data Data 06/13/16 06/14/16 19:00 07:00 Intake Total 1548 ml 3159 ml Output Total 1300 ml 1400 ml Balance 248 ml 1759 ml Intake IV Total 1048 ml 3159 ml Other 500 ml Output Urine Total 1300 ml 1400 ml Vital Signs Date Time Temp Pulse Resp B/P Pulse Ox O2 Delivery O2 Flow Rate FiO2 06/14/16 09:04 97 35 06/14/16 09:04 40 06/14/16 06:00 103 06/14/16 04:20 97 35 06/14/16 04:00 99.1 107 22 100/59 100 06/14/16 04:00 35 06/14/16 04:00 108 06/14/16 02:00 108 06/14/16 01:16 99 40 06/14/16 00:00 40 06/14/16 00:00 99.3 109 22 98/63 100 06/14/16 00:00 108 06/13/16 22:00 108 06/13/16 20:05 99 40 06/13/16 20:00 40 06/13/16 20:00 108 06/13/16 20:00 99.5 107 22 95/61 100 06/13/16 18:00 108 06/13/16 16:00 100.5 110 16 101/61 100 06/13/16 16:00 111 06/13/16 16:00 40 06/13/16 15:56 98 40 06/13/16 14:00 114 06/13/16 12:46 99 40 -: 06/14/16 0832 06/14/16 0530 Physical Exam General Appearance Remarks Intubated and sedated. Eyes Eye Exam: Pupils Equal Throat Throat Exam: Oral Mucosa [place] & Moist Neck Neck Exam: Neck Supple Pulmonary Resp Exam: Breath Sounds Equal, No Distress, Decreased Bases Cardiology CV Exam: Regular, Normal Sinus Rhythm Gastrointestinal/Abdomen GI Exam: Soft, Non-Tender, Bowel Sounds Present Extremeties Extremities Exam: No Edema Neurologic Neuro Exam: Sedated Assessment/Plan Assessment Summary: [place]/Acute Renal Failure, Dehydration Electrolyte Assessment: Hypernatremia Problem List: (1) Dehydration (2) Respiratory failure (3) UTI (urinary tract infection) (4) Altered mental status (5) Severe sepsis (6) Hypernatremia (7) Renal failure Plan Patient has been non oliguric. BUN and Creatinine improving. Most likely has dehydration and ATN causing WESTLEY. Continue IVF. Na. is still elevated, now 154, started on GT feeding and free water. Also on IVF with D5W. Problem Qualifiers (1) Respiratory failure: Qualified Code: J96.00 - Acute respiratory failure, unspecified whether with hypoxia or hypercapnia (2) UTI (urinary tract infection): Qualified Code: N39.0 - Urinary tract infection without hematuria, site unspecified (3) Altered mental status: Qualified Code: R40.2432 - [place] coma scale total score 3-8, at arrival to emergency department Waldo Corral MD Jun 14, 2016 12:24
[2016-06-14 14:44] LABS: APTT (PATIENT) 26.3 SEC (24.3-30.1); INTERNATIONAL NORMALIZED RATIO 1.3 RATIO; PROTHROMBIN TIME - PATIENT 14.8 SEC (9.8-11.6)
--- NOTE | 2016-06-14 16:54 | HHI.IDPN ---
Subjective Subjective Remarks pt is not doing well she is on low dose of pressors not waking up no diarrhea Antibiotics zosyn sonia Allergies: Coded Allergies: DO NOT USE (Verified Allergy, Mild, Hallucinations, 06/12/16) Objective . Vital Signs Date Time Temp Pulse Resp B/P Pulse Ox O2 Delivery O2 Flow Rate FiO2 06/14/16 16:00 35 06/14/16 12:03 98 35 06/14/16 12:00 35 06/14/16 12:00 99.6 102 23 104/63 97 06/14/16 09:04 97 35 06/14/16 09:04 40 06/14/16 08:00 35 06/14/16 08:00 99.4 100 19 103/63 100 06/14/16 08:00 100 06/14/16 06:00 103 06/14/16 04:20 97 35 06/14/16 04:00 99.1 107 22 100/59 100 06/14/16 04:00 35 06/14/16 04:00 108 06/14/16 02:00 108 06/14/16 01:16 99 40 06/14/16 00:00 40 06/14/16 00:00 99.3 109 22 98/63 100 06/14/16 00:00 108 06/13/16 22:00 108 06/13/16 20:05 99 40 06/13/16 20:00 40 06/13/16 20:00 108 06/13/16 20:00 99.5 107 22 95/61 100 06/13/16 18:00 108 06/13/16 06/13/16 06/14/16 15:00 23:00 07:00 Intake Total 1548 ml 2009 ml 1150 ml Output Total 1300 ml 550 ml 850 ml Balance 248 ml 1459 ml 300 ml Intake IV Total 1048 ml 2009 ml 1150 ml Other 500 ml Output Urine Total 1300 ml 550 ml 850 ml . Laboratory Tests Test 06/12/16 06/13/16 06/14/16 06/14/16 16:55 03:17 05:30 08:32 White Blood Count 12.6 TH/MM3 10.5 TH/MM3 12.8 TH/MM3 13.5 TH/MM3 Red Blood Count 4.35 MIL/MM3 3.77 MIL/MM3 3.59 MIL/MM3 3.67 MIL/MM3 Hemoglobin 11.3 GM/DL 10.0 GM/DL 9.7 GM/DL 9.4 GM/DL Hematocrit 35.4 % 29.9 % 29.1 % 30.0 % Mean Corpuscular Volume 81.3 FL 79.4 FL 81.1 FL 81.8 FL Mean Corpuscular Hemoglobin 26.1 PG 26.6 PG 26.9 PG 25.5 PG Mean Corpuscular Hemoglobin 32.1 % 33.4 % 33.2 % 31.2 % Concent Red Cell Distribution Width 16.8 % 16.5 % 16.7 % 17.0 % Platelet Count 204 TH/MM3 121 TH/MM3 86 TH/MM3 88 TH/MM3 Mean Platelet Volume 9.5 FL 8.7 FL 9.6 FL 9.3 FL Neutrophils (%) (Auto) 81.6 % 85.7 % 91.9 % 90.4 % Lymphocytes (%) (Auto) 9.7 % 9.5 % 6.0 % 7.7 % Monocytes (%) (Auto) 8.5 % 4.7 % 1.9 % 1.6 % Eosinophils (%) (Auto) 0.0 % 0.0 % 0.0 % 0.0 % Basophils (%) (Auto) 0.2 % 0.1 % 0.2 % 0.3 % Neutrophils # (Auto) 10.3 TH/MM3 9.0 TH/MM3 11.8 TH/MM3 12.2 TH/MM3 Lymphocytes # (Auto) 1.2 TH/MM3 1.0 TH/MM3 0.8 TH/MM3 1.0 TH/MM3 Monocytes # (Auto) 1.1 TH/MM3 0.5 TH/MM3 0.2 TH/MM3 0.2 TH/MM3 Eosinophils # (Auto) 0.0 TH/MM3 0.0 TH/MM3 0.0 TH/MM3 0.0 TH/MM3 Basophils # (Auto) 0.0 TH/MM3 0.0 TH/MM3 0.0 TH/MM3 0.0 TH/MM3 CBC Comment DIFF FINAL DIFF FINAL AUTO DIFF AUTO DIFF Differential Comment AUTO DIFF AUTO DIFF CONFIRMED CONFIRMED Toxic Vacuolation PRESENT PRESENT Platelet Estimate LOW LOW Platelet Morphology Comment NORMAL NORMAL Laboratory Tests Test 06/12/16 06/12/16 06/13/16 06/13/16 16:55 19:02 03:17 08:40 Sodium Level 156 MEQ/L 158 MEQ/L Potassium Level 3.6 MEQ/L 2.6 MEQ/L Chloride Level 121 MEQ/L 119 MEQ/L Carbon Dioxide Level 15.5 MEQ/L 23.7 MEQ/L Anion Gap 20 MEQ/L 15 MEQ/L Blood Urea Nitrogen 67 MG/DL 62 MG/DL Creatinine 3.19 MG/DL 2.12 MG/DL Estimat Glomerular Filtration 18 ML/MIN 29 ML/MIN Rate Random Glucose 113 MG/DL 104 MG/DL Lactic Acid Level 6.6 mmol/L 5.1 mmol/L 3.9 mmol/L Calcium Level 8.6 MG/DL 7.6 MG/DL Total Bilirubin 0.5 MG/DL 0.5 MG/DL Aspartate Amino Transf 234 U/L 461 U/L (AST/SGOT) Alanine Aminotransferase 115 U/L 140 U/L (ALT/SGPT) Alkaline Phosphatase 70 U/L 57 U/L Total Protein 8.0 GM/DL 6.8 GM/DL Albumin 2.8 GM/DL 2.4 GM/DL Total Creatine Kinase 8059 U/L Creatine Kinase MB 213.5 NG/ML Creatine Kinase MB % 2.6 % Ammonia 40 MCMOL/L Thyroid Stimulating Hormone 2.590 uIU/ML 3rd Gen Test 06/13/16 06/14/16 06/14/16 13:30 05:30 08:32 Sodium Level 157 MEQ/L 154 MEQ/L Potassium Level 3.1 MEQ/L 3.6 MEQ/L Chloride Level 119 MEQ/L 119 MEQ/L Carbon Dioxide Level 27.1 MEQ/L 24.8 MEQ/L Anion Gap 11 MEQ/L 10 MEQ/L Blood Urea Nitrogen 51 MG/DL 33 MG/DL Creatinine 1.53 MG/DL 1.18 MG/DL Estimat Glomerular Filtration 43 ML/MIN 58 ML/MIN Rate Random Glucose 118 MG/DL 134 MG/DL Calcium Level 7.7 MG/DL 7.7 MG/DL Phosphorus Level 3.4 MG/DL Magnesium Level 2.5 MG/DL Total Bilirubin 0.5 MG/DL Aspartate Amino Transf 483 U/L (AST/SGOT) Alanine Aminotransferase 181 U/L (ALT/SGPT) Alkaline Phosphatase 61 U/L Total Creatine Kinase 6383 U/L Creatine Kinase MB 49.2 NG/ML Creatine Kinase MB % 0.8 % Total Protein 6.7 GM/DL Albumin 2.1 GM/DL Lactic Acid Level 4.3 mmol/L Microbiology Date/Time Procedure Status Source Growth 06/12/16 16:50 Aerobic Blood Culture - Preliminary Resulted Blood Peripheral NO GROWTH IN 2 DAYS 06/12/16 16:50 Anaerobic Blood Culture - Preliminary Resulted Blood Peripheral NO GROWTH IN 2 DAYS 06/12/16 16:55 Aerobic Blood Culture - Preliminary Resulted Blood Peripheral NO GROWTH IN 2 DAYS 06/12/16 16:55 Anaerobic Blood Culture - Preliminary Resulted Blood Peripheral NO GROWTH IN 2 DAYS 06/12/16 16:55 Urine Culture - Final Complete Urine Catheterized Urine Escherichia Coli 06/12/16 22:31 Gram Stain - Final Resulted Cerebral Spinal Fluid Lumbar Puncture 06/12/16 22:31 CSF Culture - Preliminary Resulted Cerebral Spinal Fluid Lumbar Puncture NO GROWTH IN 48 HOURS. Imaging Last Impressions Liver Ultrasound 06/13/16 0000 Signed Impressions: Service Date/Time: Monday, June 13, 2016 09:42 - CONCLUSION: 1. Small amount free fluid identified medial to the lower pole of the right kidney. 2. Slight increased hepatic echotexture suggesting some degree of fatty infiltration. 3. Please note the body and tail of the pancreas are obscured by overlying bowel gas. The head neck and uncinate process are sonographically intact. Mauro Leslie MD Chest X-Ray 06/13/16 0000 Signed Impressions: Service Date/Time: Monday, June 13, 2016 04:14 - CONCLUSION: Clear lungs. Simone Woody Jr., MD Head CT 06/12/16 1657 Signed Impressions: Service Date/Time: May 21:37 - CONCLUSION: Unremarkable study. Jose Martinez MD Renal Ultrasound 06/12/16 0000 Signed Impressions: Service Date/Time: May 23:51 - CONCLUSION: 1. Mild pelvocaliectasis on the right. No hydronephrosis involving either kidney. Simone Woody Jr., MD Chest CT 06/12/16 0000 Signed Impressions: Service Date/Time: May 21:39 - CONCLUSION: Right upper lobe parenchymal process may represent pneumonia, however follow up is suggested with repeat noncontrast chest CT in 2-4 weeksafter appropriate clinical therapy. Jose Martinez MD Abdomen/Pelvis CT 06/12/16 0000 Signed Impressions: Service Date/Time: May 21:39 - CONCLUSION: Essentially unremarkable study. Jose Martinez MD Physical Exam CONSTITUTIONAL/GENERAL: This is an obese female patient, in no apparent distress. Sedated heavily on vent TUBES/LINES/DRAINS: SKIN: No jaundice, rashes, or lesions. Skin temperature appropriate. Not diaphoretic. HEAD: Atraumatic. Normocephalic. EYES: Pupils equal and round and reactive. Extraocular motions intact. No scleral icterus. No injection or drainage. Fundi not examined. ENT: Hearing not assessed. Nose without bleeding or purulent drainage. Orally intubated Moist mucosae POor dentition NECK: Trachea midline. Supple, nontender. CARDIOVASCULAR: Regular rate and rhythm without murmurs, gallops, or rubs. No JVD. Peripheral pulses symmetric. RESPIRATORY/CHEST: Symmetric, unlabored respirations. Clear to auscultation. Breath sounds equal bilaterally. No wheezes, rales, or rhonchi. GASTROINTESTINAL: Abdomen soft, non-tender, moderately distended. No hepato- splenomegaly, or palpable masses. No guarding. Bowel sounds present. GENITOURINARY: Without palpable bladder distension. Cortes catheter in place with cloudy yellow urine MUSCULOSKELETAL: Extremities without clubbing, cyanosis, + small amount of edema. No joint tenderness or effusion noted. No calf tenderness. No mottling or clubbing. LYMPHATICS: No palpable cervical or supraclavicular adenopathy. NEUROLOGICAL: Not sedated Does not follows commands. Opens eyes to voice PSYCHIATRIC: unable to assess Assessment & Plan Remarks Sepssi (fever, hypoxi, leukocytosis, lactic acidosis, multi organ yfunction ? source: sustpect UTI 2/2 ford S E.coli Lymphcytic pleocytosis in CSF - protein, glc -not available - clx neg @ 48hrs ARF/CKD Acute VDRF cont current abx - fu MRI results - fu blood clx untill final Briseida Ortiz MD Jun 14, 2016 16:53
--- NOTE | 2016-06-14 17:56 | MB ---
cc: MIRIAM CORDOVA MD DATE OF CONSULTATION 06/14/16 She is seen in neurological consultation. She is a 56-year-old woman seen with encephalopathy. She is in the intensive care unit. The history is not quite clear. She was brought apparently from a nursing facility on 06/12. There was a history of hypoxia, altered mental status and a temperature of 101. This is a taken from the emergency room note. There is a history of stroke, apparently right-sided deficits, in 2010 MEDICATIONS 1. Blood pressure medicine 2. Aspirin 3. Lyrica 4. Percocet 5. Sertraline 6. Baclofen. The patient came in with elevated BUN and creatinine and she has been seen by the network engineer administrator as well. IMAGING STUDIES The CT brain on 06/12 showed no acute abnormality. LABORATORY DATA Initially shows a white count 12.6 and today 13.5, hemoglobin 11.3 on admission and today 9.4, platelet count 204 on admission and today is 88. Chemistry - initial sodium 157 - today 154, glucose 118 - today 134, AST elevated to 483, ALT 181. CPK is 6383. NEUROLOGIC EXAMINATION On the exam, the patient is intubated on a C-PAP not following any commands. Eyes are open and no clear response to visual threat. Unclear if she is tracking me in the room. She is essentially flaccid and nursing staff has not seen much motor functions. Reflexes were trace versus absent throughout, plantar response is probably flexor. Pupils are about the same size, reactive. Unable to see the disks. Eyes were in primary position. Touching the forehead or the eyelids shows some prompt blinking response. ASSESSMENT Acute and chronic encephalopathy. Apparently, this woman has a history of previous cerebrovascular event and there is some baseline impairment and unclear if she is a care home or just an assisted-living facility resident. She had fevers initially, but she has been afebrile today. Neurologic chavira, I am going to see if we can run an MRI brain without contrast on her. I will obtain an EEG as well. It appears that her kidney functions have improved partially. She has evidence of elevated CPK likely from rhabdomyolysis. I will follow the neurological course. Depending upon clinical course, also consider lumbar puncture. She has been on antibiotics. Thank you for asking us to assist in her care. MD SHYLA Romero/ /3:13 PM /5:29 PM
--- NOTE | 2016-06-14 19:04 | RADRPT ---
EXAM DATE/TIME: 06/14/2016 18:23 [facility] COMPARISON: CT BRAIN W/O CONTRAST, June 12, 2016, 21:37. INDICATIONS : Neurologic deficit. Not following commands. Stupor. MEDICAL HISTORY : Cerebrovascular disease. Hypertension. Renal insufficiency. SURGICAL HISTORY : Hysterectomy. section. ENCOUNTER: Subsequent ACUITY: 3 day PAIN SCORE: 0/10 LOCATION: cranial Please note a normal MRA of the brain does not entirely exclude the possibility of a small aneurysm, nor the possibility of distal intracranial vessel disease. TECHNIQUE: 3D time of flight MRA was performed. Source images, multiplanar STS MIP, and 3D volume MIP reconstru ctions were reviewed. FINDINGS: There is excellent visualization of the major intracranial arteries out to the second-order branch ve ssels. There is no evidence for aneurysm, vessel truncation or stenosis, and no evidence for vascula r malformation. No flow seen in the anterior communicating artery. The right posterior cerebral art luis derives mostly flow for the anterior circulation, but there is a small atrophic P1 segment presen t. On the left side, there is a normal size P1 segment but there is also a prominent size posterior communicating artery. CONCLUSION: No evidence of vessel truncation or aneurysm. Simone Graham MD on June 14, 2016 at 19:00 Board Certified Radiologist. This report was verified electronically.
[2016-06-14] MEDS: FAMOTIDINE 20 MG/2 ML VIAL IV PUSH SCH (19:35)
[2016-06-14] MEDS: CHLORHEXIDINE GLUCONATE 2 % 1 PACK (2 CLOTHS) TOP SCH (21:50)
[2016-06-15] VITALS (19 sets, daily range): BP systolic 90–109; BP diastolic 54–61; PULSE 79–96; RESP 17–23; TEMP 99–99.3; O2SAT 99–100
[2016-06-15] MEDS: FREE WATER G-TUBE SCH (00:55)
[2016-06-15] MEDS: INSULIN NovoLIN REGULAR SUPPLEMENTAL SCALE SQ SCH ×4 (02:09→21:00)
[2016-06-15] MEDS: RESP: ALBUTEROL 2.5 MG/IPRATROPIUM 0.5 MG NEB (SCH) INH ×4 (03:21→21:40)
[2016-06-15 03:35] LABS: AUTOMATED NEUTROPHIL # 14.2 TH/MM3 (1.8-7.7); BASOPHIL % 0.1 % (0.0-2.0); EOSINOPHIL % 0.1 % (0.0-4.0); HEMATOCRIT 29.1 % (35.0-46.0); LYMPH % 3.7 % (9.0-44.0); LYMPHOCYTE # 0.6 TH/MM3 (1.0-4.8); MEAN CELL VOLUME 81.8 FL (80.0-100.0); MEAN CORPUSCULAR HEMOGLOBIN 25.2 PG (27.0-34.0); MEAN CORPUSCULAR HGB CONC 30.9 % (32.0-36.0); MONO % 1.6 % (0.0-8.0); NEUT % 94.5 % (16.0-70.0); PLATELET COUNT 64 TH/MM3 (150-450); RED BLOOD COUNT 3.55 MIL/MM3 (4.00-5.30); RED CELL DISTRIBUTION WIDTH 16.3 % (11.6-17.2)
[2016-06-15 03:44] LABS: HEMO FLAGS AUTO DIFF
[2016-06-15] MEDS: PIPERACIL-TAZO 2.25 GM PREMIX 50 ML IV SCH (03:47)
[2016-06-15 04:21] LABS: ALKALINE PHOSPHATASE 68 U/L (45-117); ALT (GPT) 225 U/L (10-53); ANION GAP 9 MEQ/L (5-15); AST (GOT) 557 U/L (15-37); BICARBONATE 26.8 MEQ/L (21.0-32.0); BLOOD UREA NITROGEN 17 MG/DL (7-18); CHLORIDE 107 MEQ/L (98-107); CREATINE KINASE 5472 U/L (26-192); GLOMERULAR FILTRATION RATE 81 ML/MIN (>89); MAGNESIUM 2.3 MG/DL (1.5-2.5); POTASSIUM 3.2 MEQ/L (3.5-5.1); SODIUM (NA) 143 MEQ/L (136-145); TOTAL BILIRUBIN ADULT 0.5 MG/DL (0.2-1.0)
[2016-06-15 04:31] LABS: BANDS 22 % (0-6); CORRECTED NUCLEATED RBC 1 /100 WBC (0-0); NEUTROPHIL # MANUAL DIFF 14.4 TH/MM3 (1.8-7.7); POLYS (SEG NEUTROPHILS) 74 % (16-70); WBC DIFF SAMPLE 100
[2016-06-15 04:33] LABS: PLATELET ESTIMATE SMEAR LOW (NORMAL); PLATELET MORPHOLOGY NORMAL (NORMAL); SCAN/DIFF FINAL DIFF MANUAL; TOXIC VACUOLATION PRESENT (NONE SEEN)
[2016-06-15 04:34] LABS: OVALOCYTES 1+ (NORMAL)
--- NOTE | 2016-06-15 08:02 | HHI.CCPN ---
Subjective Remarks/Hospital Course 56-year-old female brought in by EMS emergently as altered mental status, hypoxia and temperature 104. Patient has a history of CVA many years ago. Per caregiver she didn't feel well since yesterday and wasn't taking any of medications including baclofen. Patient was unable to communicate due to her altered mental status. As per EMS not much history was available from the family but she has history of CVA as baseline but communicates. In the emergency department patient's oxygen saturation was low 70s upon EMS arrival. They had her on oxygen via nonrebreather and sats of 93%. GCS was 6 and she was intubated by ER attending for an airway protection. 06/13 Patient is sedated with Versed and on Bicarb drip. Renal function is improving with Cr: 2.12 from 3.19 UO: 1350ml since yesterday. Afebrile. 06/14 Patient remains sedated and intubated. Afebrile. Renal function continue to improve with Cr: 1.18 today from 1.53. 06/15 No acute events overnight. Off sedation remains intubated. Patient tolerated CPAP all day yesterday. MRA brain last night is unremarkable. T:99.9 Objective Vital Signs Date Time Temp Pulse Resp B/P Pulse Ox O2 Delivery O2 Flow Rate FiO2 06/15/16 06:00 83 06/15/16 04:20 100 35 06/15/16 04:00 99.1 23 91/57 06/12/16 21:01 Ventilator Intake and Output 06/14/16 06/14/16 06/15/16 08:00 16:00 00:00 Intake Total 1150 ml 1106 ml 750 ml Output Total 850 ml 650 ml 550 ml Balance 300 ml 456 ml 200 ml Result Diagram: 06/15/16 0308 06/15/16 0308 Other Results Laboratory Tests Test 06/14/16 06/14/16 06/14/16 06/15/16 08:32 14:06 19:41 03:08 White Blood Count 13.5 TH/MM3 15.0 TH/MM3 Red Blood Count 3.67 MIL/MM3 3.55 MIL/MM3 Hemoglobin 9.4 GM/DL 9.0 GM/DL Hematocrit 30.0 % 29.1 % Mean Corpuscular Volume 81.8 FL 81.8 FL Mean Corpuscular Hemoglobin 25.5 PG 25.2 PG Mean Corpuscular Hemoglobin 31.2 % 30.9 % Concent Red Cell Distribution Width 17.0 % 16.3 % Platelet Count 88 TH/MM3 64 TH/MM3 Mean Platelet Volume 9.3 FL 8.8 FL Neutrophils (%) (Auto) 90.4 % 94.5 % Lymphocytes (%) (Auto) 7.7 % 3.7 % Monocytes (%) (Auto) 1.6 % 1.6 % Eosinophils (%) (Auto) 0.0 % 0.1 % Basophils (%) (Auto) 0.3 % 0.1 % Neutrophils # (Auto) 12.2 TH/MM3 14.2 TH/MM3 Lymphocytes # (Auto) 1.0 TH/MM3 0.6 TH/MM3 Monocytes # (Auto) 0.2 TH/MM3 0.2 TH/MM3 Eosinophils # (Auto) 0.0 TH/MM3 0.0 TH/MM3 Basophils # (Auto) 0.0 TH/MM3 0.0 TH/MM3 CBC Comment AUTO DIFF AUTO DIFF Differential Comment AUTO DIFF FINAL DIFF CONFIRMED MANUAL Toxic Vacuolation PRESENT PRESENT Platelet Estimate LOW LOW Platelet Morphology Comment NORMAL NORMAL Lactic Acid Level 4.3 mmol/L 4.3 mmol/L 4.4 mmol/L Prothrombin Time 14.8 SEC Prothromb Time International 1.3 RATIO Ratio Activated Partial 26.3 SEC Thromboplast Time Fibrinogen 474 mg/dL Differential Total Cells 100 Counted Neutrophils % (Manual) 74 % Band Neutrophils % 22 % Lymphocytes % 4 % Neutrophils # (Manual) 14.4 TH/MM3 Nucleated Red Blood Cells 1 /100 WBC Ovalocytes 1+ Sodium Level 143 MEQ/L Potassium Level 3.2 MEQ/L Chloride Level 107 MEQ/L Carbon Dioxide Level 26.8 MEQ/L Anion Gap 9 MEQ/L Blood Urea Nitrogen 17 MG/DL Creatinine 0.88 MG/DL Estimat Glomerular Filtration 81 ML/MIN Rate Random Glucose 105 MG/DL Calcium Level 8.2 MG/DL Phosphorus Level 1.6 MG/DL Magnesium Level 2.3 MG/DL Total Bilirubin 0.5 MG/DL Aspartate Amino Transf 557 U/L (AST/SGOT) Alanine Aminotransferase 225 U/L (ALT/SGPT) Alkaline Phosphatase 68 U/L Total Creatine Kinase 5472 U/L Creatine Kinase MB 118.0 NG/ML Creatine Kinase MB % 2.2 % Total Protein 6.1 GM/DL Albumin 1.9 GM/DL Imaging Last Impressions Head Magnetic Resonance Angiography 06/14/16 Signed Impressions: Service Date/Time: Tuesday, June 14, 2016 18:23 - CONCLUSION: No evidence of vessel truncation or aneurysm. Simone Graham MD Liver Ultrasound 06/13/16 Signed Impressions: Service Date/Time: Monday, June 13, 2016 09:42 - CONCLUSION: 1. Small amount free fluid identified medial to the lower pole of the right kidney. 2. Slight increased hepatic echotexture suggesting some degree of fatty infiltration. 3. Please note the body and tail of the pancreas are obscured by overlying bowel gas. The head neck and uncinate process are sonographically intact. Mauro Leslie MD Chest X-Ray 06/13/16 Signed Impressions: Service Date/Time: Monday, June 13, 2016 04:14 - CONCLUSION: Clear lungs. Simone Woody Jr., MD Head CT 06/12/16 1657 Signed Impressions: Service Date/Time: May 21:37 - CONCLUSION: Unremarkable study. Jose Martinez MD Renal Ultrasound 06/12/16 Signed Impressions: Service Date/Time: May 23:51 - CONCLUSION: 1. Mild pelvocaliectasis on the right. No hydronephrosis involving either kidney. Simone Woody Jr., MD Chest CT 06/12/16 Signed Impressions: Service Date/Time: May 21:39 - CONCLUSION: Right upper lobe parenchymal process may represent pneumonia, however follow up is suggested with repeat noncontrast chest CT in 2-4 weeksafter appropriate clinical therapy. Jose Martinez MD Abdomen/Pelvis CT 06/12/16 Signed Impressions: Service Date/Time: May 21:39 - CONCLUSION: Essentially unremarkable study. Jose Martinez MD Objective Remarks GENERAL: Elderly woman sedated and intubated SKIN: Warm and dry. HEAD: Normocephalic. EYES: No scleral icterus. No injection or drainage. NECK: Supple, trachea midline. No JVD or lymphadenopathy. CARDIOVASCULAR: Regular rate and rhythm without murmurs, gallops, or rubs. RESPIRATORY: Breath sounds equal bilaterally. No accessory muscle use. GASTROINTESTINAL: Abdomen soft, non-tender, nondistended. MUSCULOSKELETAL: No cyanosis, or edema. BACK: Nontender without obvious deformity. No CVA tenderness. EXTREMITIES: No clubbing cyanosis or edema A/P Assessment and Plan VDRF Encephalopathy SIRS/sepsis Acute kidney injury..improving Rhabdo Hypernatremia Hypokalemia Anemia Lactic acidemia Leukocytosis- resolved Elevated LFT UTI Plan Neuro: Off sedation. Monitor neuro status and avoid sedatives. Ammonia level: 40, TSH 2.5. Continue with Lactulose. CT brain: No acute findings. UDS+ +Benzos MRA brain 06/14- Unremarkable. s/p LP showed clear CSF and 15 WBC. For EEG, neuro is following- Dr. Boggs, will check MRI brain wo contrast Pulm: Continue with vent support keep sat >92% Bronchodilators, ICU vent bundle. SBT trials as cherie CV: Monitor HR and BP keep MAP>65mmHg. Serial lactic acid monitoring : Monitor renal function, I/O's, avoid nephrotoxins. Electrolytes replacement per protocol. Renal US: No hydronephrosis. Renal is following- Dr. Corral Change IVF D5NS@75ml/hr monitor Sodium level and CK's. GI: On Pepcid 20meq IV qhs, start tube feeds with Glucerna 1.5 with goal rate 45ml/hr Monitor LFT's, US liver: Fatty liver ID: Continue abx per ID (Zosyn)monitor for signs of infections ( Fever, WBC) Patient was given Vanco, Zosyn, Zithromax in ED. 06/12 Urine cx: E.coli 06/12 BC: No growth 06/12 CSG: NGTD Heme: Monitor CBC, coags,follow up on Hep plt ab. Thrombocytopenia likely 2nd sepsis Endo: SSI for glycemic control, TSH level: 2.5 GI Prophylaxis with Pepcid DVT prophylaxis with SCD, CCT 30 mins Jose Smith MD Jun 15, 2016 08:02
[2016-06-15] MEDS: LACTULOSE SYRUP 20 GM/30 ML CUP PO SCH ×2 (09:41→22:40)
[2016-06-15] MEDS: BACLOFEN 10 MG TAB PO SCH ×3 (09:41→18:14)
[2016-06-15] MEDS: PREGABALIN 75 MG CAP PO SCH ×2 (09:41→22:41)
[2016-06-15] MEDS: CHLORHEXIDINE 0.12% (ORAL KIT) 15 ML CUP MT SCH ×2 (09:41→22:45)
[2016-06-15] MEDS: SERTRALINE HCL 100 MG TAB PO SCH (09:41)
[2016-06-15] MEDS: SODIUM CHLORIDE 0.9% FLUSH 10 ML FLUSH IV FLUSH PRN (09:42)
[2016-06-15] MEDS: SODIUM CHLORIDE 0.9% FLUSH 10 ML FLUSH IV FLUSH SCH ×2 (09:42→22:42)
[2016-06-15] MEDS: DEXT 5%-NACL 0.9% 1000 ML INJ 1,000 ML IV SCH ×2 (09:44→22:43)
--- NOTE | 2016-06-15 09:57 | RADRPT ---
EXAM DATE/TIME: 06/15/2016 09:10 [facility] COMPARISON: CT BRAIN W/O CONTRAST, June 12, 2016, 21:37. INDICATIONS : Neurologic deficit. Not following commands. Stupor. MEDICAL HISTORY : Hypertension. Cerebrovascular disease. Renal insufficiency, chronic. SURGICAL HISTORY : section. Hysterectomy. ENCOUNTER: Initial ACUITY: 2 day PAIN SCORE: 0/10 LOCATION: cranial TECHNIQUE: Multiplanar, multisequence MRI of the brain was performed without contrast. FINDINGS: CEREBRUM: The ventricles are normal for age. There is focal increased signal on flair and T2 images at the left posterior basal ganglia extending through the posterior horn of the internal capsule towards the lef t lateral ventricle. There some focal expansion of the left lateral ventricle in response to this. Th is is likely from prior infarct. No evidence of midline shift, mass lesion, hemorrhage or acute infar ction. No extraaxial fluid collections are seen. The pituitary gland and suprasellar cistern are no rmal in configuration. WHITE MATTER: No significant signal abnormalities are seen in the white matter. POSTERIOR FOSSA: The cerebellum and brainstem are intact. The 4th ventricle is midline. The cerebellopontine angle is unremarkable. The cerebellar tonsils are normal in position. DIFFUSION IMAGING: No focal areas of restricted diffusion are seen. No evidence of acute infarction. EXTRACRANIAL: The visualized portions of the orbits and paranasal sinuses are unremarkable. CONCLUSION: No acute abnormality seen. There appears to be the sequela of a small infarction at the posterior lef t basal ganglia and internal capsule. Reginaldo Cain MD on June 15, 2016 at 9:43 Board Certified Radiologist. This report was verified electronically.
--- NOTE | 2016-06-15 10:03 | HHI.IDPN ---
Subjective Subjective Remarks ID COVERAGE 56 Y/O female, SNF resident, bedridden, Hx previous CVA adm with fever, hypoxemia and altered mental status Intubated in the ED Notes reviewed D/W RN temps low grade Did CPAP yesterday, on AC this morning MRA brain normal Brain MRI pending Not on pressor UA on admission is unremarkable But UC with E coli pansensitive LFT elevated Liver US no CBD dilation CT A/P organs ok, no hydronephrosis WBC worse today LP with elevated WBC in CSF Antibiotics Melsyn Sidra Past Medical History Reviewed Allergies: Coded Allergies: DO NOT USE (Verified Allergy, Mild, Hallucinations, 06/12/16) Objective . Vital Signs Date Time Temp Pulse Resp B/P Pulse Ox O2 Delivery O2 Flow Rate FiO2 06/15/16 09:00 99 35 06/15/16 06:00 83 06/15/16 04:20 100 35 06/15/16 04:00 79 06/15/16 04:00 35 06/15/16 04:00 99.1 87 23 91/57 99 06/15/16 02:00 81 06/15/16 01:18 100 35 06/15/16 00:00 99.3 81 23 90/54 99 06/15/16 00:00 40 06/15/16 00:00 96 06/14/16 22:15 99 35 06/14/16 22:00 96 06/14/16 20:30 98 35 06/14/16 20:00 35 06/14/16 20:00 96 06/14/16 20:00 99.9 91 23 102/61 99 06/14/16 18:47 100 100 06/14/16 18:00 96 06/14/16 17:20 100 35 06/14/16 16:00 35 06/14/16 16:00 97 06/14/16 16:00 99.9 97 23 102/55 99 06/14/16 14:00 106 06/14/16 12:03 98 35 06/14/16 12:00 35 06/14/16 12:00 99.6 102 23 104/63 97 06/14/16 12:00 102 06/14/16 10:00 101 06/14/16 06/14/16 06/15/16 15:00 23:00 07:00 Intake Total 1106 ml 750 ml 1200 ml Output Total 650 ml 550 ml 475 ml Balance 456 ml 200 ml 725 ml Intake IV Total 1106 ml 475 ml 875 ml Other 275 ml 325 ml Output Urine Total 650 ml 550 ml 475 ml # Bowel Movements 0 . Laboratory Tests Test 06/14/16 06/14/16 06/15/16 05:30 08:32 03:08 White Blood Count 12.8 TH/MM3 13.5 TH/MM3 15.0 TH/MM3 Red Blood Count 3.59 MIL/MM3 3.67 MIL/MM3 3.55 MIL/MM3 Hemoglobin 9.7 GM/DL 9.4 GM/DL 9.0 GM/DL Hematocrit 29.1 % 30.0 % 29.1 % Mean Corpuscular Volume 81.1 FL 81.8 FL 81.8 FL Mean Corpuscular Hemoglobin 26.9 PG 25.5 PG 25.2 PG Mean Corpuscular Hemoglobin 33.2 % 31.2 % 30.9 % Concent Red Cell Distribution Width 16.7 % 17.0 % 16.3 % Platelet Count 86 TH/MM3 88 TH/MM3 64 TH/MM3 Mean Platelet Volume 9.6 FL 9.3 FL 8.8 FL Neutrophils (%) (Auto) 91.9 % 90.4 % 94.5 % Lymphocytes (%) (Auto) 6.0 % 7.7 % 3.7 % Monocytes (%) (Auto) 1.9 % 1.6 % 1.6 % Eosinophils (%) (Auto) 0.0 % 0.0 % 0.1 % Basophils (%) (Auto) 0.2 % 0.3 % 0.1 % Neutrophils # (Auto) 11.8 TH/MM3 12.2 TH/MM3 14.2 TH/MM3 Lymphocytes # (Auto) 0.8 TH/MM3 1.0 TH/MM3 0.6 TH/MM3 Monocytes # (Auto) 0.2 TH/MM3 0.2 TH/MM3 0.2 TH/MM3 Eosinophils # (Auto) 0.0 TH/MM3 0.0 TH/MM3 0.0 TH/MM3 Basophils # (Auto) 0.0 TH/MM3 0.0 TH/MM3 0.0 TH/MM3 CBC Comment AUTO DIFF AUTO DIFF AUTO DIFF Differential Comment AUTO DIFF AUTO DIFF FINAL DIFF CONFIRMED CONFIRMED MANUAL Toxic Vacuolation PRESENT PRESENT PRESENT Platelet Estimate LOW LOW LOW Platelet Morphology Comment NORMAL NORMAL NORMAL Differential Total Cells 100 Counted Neutrophils % (Manual) 74 % Band Neutrophils % 22 % Lymphocytes % 4 % Neutrophils # (Manual) 14.4 TH/MM3 Nucleated Red Blood Cells 1 /100 WBC Ovalocytes 1+ Laboratory Tests Test 06/13/16 06/14/16 06/14/16 06/14/16 13:30 05:30 08:32 19:41 Sodium Level 157 MEQ/L 154 MEQ/L Potassium Level 3.1 MEQ/L 3.6 MEQ/L Chloride Level 119 MEQ/L 119 MEQ/L Carbon Dioxide Level 27.1 MEQ/L 24.8 MEQ/L Anion Gap 11 MEQ/L 10 MEQ/L Blood Urea Nitrogen 51 MG/DL 33 MG/DL Creatinine 1.53 MG/DL 1.18 MG/DL Estimat Glomerular Filtration 43 ML/MIN 58 ML/MIN Rate Random Glucose 118 MG/DL 134 MG/DL Calcium Level 7.7 MG/DL 7.7 MG/DL Phosphorus Level 3.4 MG/DL Magnesium Level 2.5 MG/DL Total Bilirubin 0.5 MG/DL Aspartate Amino Transf 483 U/L (AST/SGOT) Alanine Aminotransferase 181 U/L (ALT/SGPT) Alkaline Phosphatase 61 U/L Total Creatine Kinase 6383 U/L Creatine Kinase MB 49.2 NG/ML Creatine Kinase MB % 0.8 % Total Protein 6.7 GM/DL Albumin 2.1 GM/DL Lactic Acid Level 4.3 mmol/L 4.3 mmol/L Test 06/15/16 03:08 Sodium Level 143 MEQ/L Potassium Level 3.2 MEQ/L Chloride Level 107 MEQ/L Carbon Dioxide Level 26.8 MEQ/L Anion Gap 9 MEQ/L Blood Urea Nitrogen 17 MG/DL Creatinine 0.88 MG/DL Estimat Glomerular Filtration 81 ML/MIN Rate Random Glucose 105 MG/DL Lactic Acid Level 4.4 mmol/L Calcium Level 8.2 MG/DL Phosphorus Level 1.6 MG/DL Magnesium Level 2.3 MG/DL Total Bilirubin 0.5 MG/DL Aspartate Amino Transf 557 U/L (AST/SGOT) Alanine Aminotransferase 225 U/L (ALT/SGPT) Alkaline Phosphatase 68 U/L Total Creatine Kinase 5472 U/L Creatine Kinase MB 118.0 NG/ML Creatine Kinase MB % 2.2 % Total Protein 6.1 GM/DL Albumin 1.9 GM/DL Microbiology Date/Time Procedure Status Source Growth 06/12/16 16:50 Aerobic Blood Culture - Preliminary Resulted Blood Peripheral NO GROWTH IN 2 DAYS 06/12/16 16:50 Anaerobic Blood Culture - Preliminary Resulted Blood Peripheral NO GROWTH IN 2 DAYS 06/12/16 16:55 Aerobic Blood Culture - Preliminary Resulted Blood Peripheral NO GROWTH IN 2 DAYS 06/12/16 16:55 Anaerobic Blood Culture - Preliminary Resulted Blood Peripheral NO GROWTH IN 2 DAYS 06/12/16 16:55 Urine Culture - Final Complete Urine Catheterized Urine Escherichia Coli 06/12/16 22:31 Gram Stain - Final Complete Cerebral Spinal Fluid Lumbar Puncture 06/12/16 22:31 CSF Culture - Final Complete Cerebral Spinal Fluid Lumbar Puncture NO GROWTH IN 72 HOURS Imaging Head Magnetic Resonance Angiography 06/14/16 0000 Signed Impressions: Service Date/Time: Tuesday, June 14, 2016 18:23 - CONCLUSION: No evidence of vessel truncation or aneurysm. Simone Graham MD Liver Ultrasound 06/13/16 0000 Signed Impressions: Service Date/Time: Monday, June 13, 2016 09:42 - CONCLUSION: 1. Small amount free fluid identified medial to the lower pole of the right kidney. 2. Slight increased hepatic echotexture suggesting some degree of fatty infiltration. 3. Please note the body and tail of the pancreas are obscured by overlying bowel gas. The head neck and uncinate process are sonographically intact. Mauro Leslie MD Chest X-Ray 06/13/16 0000 Signed Impressions: Service Date/Time: Monday, June 13, 2016 04:14 - CONCLUSION: Clear lungs. Simone Woody Jr., MD Head CT 06/12/16 1657 Signed Impressions: Service Date/Time: May 21:37 - CONCLUSION: Unremarkable study. Jose Martinez MD Renal Ultrasound 06/12/16 0000 Signed Impressions: Service Date/Time: May 23:51 - CONCLUSION: 1. Mild pelvocaliectasis on the right. No hydronephrosis involving either kidney. Simone Woody Jr., MD Chest CT 06/12/16 0000 Signed Impressions: Service Date/Time: May 21:39 - CONCLUSION: Right upper lobe parenchymal process may represent pneumonia, however follow up is suggested with repeat noncontrast chest CT in 2-4 weeksafter appropriate clinical therapy. Jose Martinez MD Abdomen/Pelvis CT 06/12/16 0000 Signed Impressions: Service Date/Time: May 21:39 - CONCLUSION: Essentially unremarkable study. Jose Martinez MD Physical Exam GENERAL: Unresponsive on the vent, NAD SKIN: No jaundice, rashes, or lesions. Cool and dry HEAD: Atraumatic. Normocephalic. EYES: Pupils equal and round and reactive. No scleral icterus. No injection or drainage. ENT: Nose without bleeding or purulent drainage. Orally intubated NECK: Trachea midline. Supple, nontender. CARDIOVASCULAR: Regular rate and rhythm without murmurs, gallops, or rubs. No JVD. Peripheral pulses symmetric. RESPIRATORY/CHEST: Bilateral coarse rhonchi GASTROINTESTINAL: Abdomen soft, no reaction to palpation, not distended. No guarding. Bowel sounds present. GENITOURINARY: Cortes catheter in place with cloudy yellow urine MUSCULOSKELETAL: Extremities without clubbing, cyanosis, + small amount of edema. No mottling or clubbing. NEUROLOGICAL: unresponsive PSYCHIATRIC: unable to assess LINE no evidence of infection : Cortes in place urine looks clear Assessment & Plan Remarks Sepsis (fever, hypoxi, leukocytosis, lactic acidosis, multi organ function) - ? source not clear, has E coli in UC but her UA is unremarkable - CT with RUL infiltrate, ?PNA Lymphocytic pleocytosis in CSF - C/S negative ARF/CKD, creatinine now normal Respiratory failure Leukocytosis, worse PLAN On Zosyn Sputum G/S C/S Brain MRI pending Follow C/S Add Zyvox for MRSA coverge patient came from SNF - follow CBC Repeat UA and C/S CXR in AM Follow CBC MOnitor progress Weaning per CCM D/W Mony Moran MD Jun 15, 2016 10:03
[2016-06-15] MEDS: PIPERACIL-TAZO 4.5 GM PREMIX 100 ML IV SCH ×3 (12:36→22:42)
[2016-06-15] MEDS: LINEZOLID 600 MG PREMIX 300 ML IV SCH ×2 (12:36→22:40)
[2016-06-15] MEDS: POTASSIUM CHLOR 40 MEQ PREMIX 100 ML IV PRN ×2 (13:15→15:35)
--- NOTE | 2016-06-15 13:36 | HHI.PR ---
Review/Management Daily Summary 06/15 eeg may be showing paroxysmal discharges i will review eeg, might try anticonvulsants mri negative Subjective Subjective Comments basically unchanged per RN Active Medications Current Medications Medications (Trade) Dose Ordered Sig/Kiel Route Start Time Stop Time Status Last Admin (fentaNYL DRIP) 250 ml @ 0 mls/hr TITRATE IV 06/12/16 17:30 (NS Flush) 2 ml UNSCH PRN IV FLUSH 06/12/16 18:00 06/15/16 09:42 (NS Flush) 2 ml BID IV FLUSH 06/12/16 21:00 06/15/16 09:42 Miscellaneous Information 1 [id number] XX 06/12/16 18:00 (Chlorhexidine 2% Cloth) 3 pack Taper DAILY@04 TOP 06/13/16 04:00 06/09/17 03:59 06/14/16 21:50 (Chlorhexidine 2% Cloth) 3 pack UNSCH PRN TOP 06/12/16 18:00 (Peridex 0.12% Liq) 15 ml BID@08,20 MT 06/12/16 20:00 06/15/16 09:41 (Lyrica) 75 mg BID PO 06/12/16 21:00 06/15/16 09:41 (Zoloft) 100 mg DAILY PO 06/12/16 20:15 Hold 06/15/16 09:41 (Lioresal) 10 mg TID PO 06/12/16 20:15 06/15/16 12:36 (Pepcid Inj) 20 mg HS IV PUSH 06/13/16 21:00 06/14/16 19:35 (D50w (Vial) Inj) 25 ml UNSCH PRN IV PUSH 06/13/16 08:15 (Glucagon Inj) 1 mg UNSCH PRN OTHER 06/13/16 08:15 (NovoLIN R SUPPLEMENTAL SCALE) 1 Q6H SQ 06/13/16 09:00 Lactulose 15 ml 15 ml BID PO 06/13/16 11:30 06/15/16 09:41 Potassium Chloride 100 ml @ 50 mls/hr Q2H PRN IV 06/13/16 16:00 06/15/16 13:15 (KCl 20 Meq Premix Inj) 100 ml @ 50 mls/hr Q2H PRN IV 06/13/16 16:00 Potassium Bicarb/ Potassium Chloride 50 meq 50 meq UNSCH PRN PO 06/13/16 16:00 Potassium Chloride 100 ml @ 25 mls/hr UNSCH PRN IV 06/13/16 16:00 Potassium Chloride 100 ml @ 50 mls/hr Q2H PRN IV 06/13/16 16:00 (Magnesium Sulfate Inj/NS Inj) 100 ml @ 50 mls/hr UNSCH PRN IV 06/13/16 16:00 Magnesium Oxide 800 mg 800 mg UNSCH PRN PO 06/13/16 16:00 (Magnesium Sulfate Inj/NS Inj) 100 ml @ 50 mls/hr UNSCH PRN IV 06/13/16 16:00 Potassium Phosphate 2000 mg 2,000 mg Q4H PRN PO 06/13/16 16:00 (Sodium Phosphate Inj/NS 250 ml Inj) 250 ml @ 42 mls/hr UNSCH PRN IV 06/13/16 16:00 Potassium Phosphate 2000 mg 2,000 mg UNSCH PRN PO/TUBE 06/13/16 16:00 Potassium Phosphate 30 mmol/ Sodium Chloride 260 ml @ 42 mls/hr UNSCH PRN IV 06/13/16 16:00 Dextrose/Sodium Chloride 1,000 ml @ 75 mls/hr [id number] IV 06/15/16 08:00 06/15/16 09:44 Piperacillin Sod/ Tazobactam Sod 100 ml @ 200 mls/hr Q6H IV 06/15/16 11:00 06/15/16 12:36 (Zyvox 600 Mg Premix) 300 ml @ 300 mls/hr Q12H IV 06/15/16 12:00 06/15/16 12:36 Allergies Allergies Coded Allergies DO NOT USE (Verified Allergy, Mild, Hallucinations, 06/12/16) Exam I&O / VS 06/14/16 06/14/16 06/15/16 15:00 23:00 07:00 Intake Total 1106 ml 750 ml 1200 ml Output Total 650 ml 550 ml 475 ml Balance 456 ml 200 ml 725 ml Intake IV Total 1106 ml 475 ml 875 ml Other 275 ml 325 ml Output Urine Total 650 ml 550 ml 475 ml # Bowel Movements 0 Vital Signs Date Time Temp Pulse Resp B/P Pulse Ox O2 Delivery O2 Flow Rate FiO2 06/15/16 12:10 100 35 06/15/16 12:00 35 06/15/16 12:00 99.2 95 22 109/57 99 06/15/16 10:14 35 06/15/16 10:14 100 35 06/15/16 09:00 99 35 06/15/16 08:30 35 06/15/16 08:00 35 06/15/16 06:00 83 06/15/16 04:20 100 35 06/15/16 04:00 79 06/15/16 04:00 35 06/15/16 04:00 99.1 87 23 91/57 99 06/15/16 02:00 81 06/15/16 01:18 100 35 06/15/16 00:00 99.3 81 23 90/54 99 06/15/16 00:00 40 06/15/16 00:00 96 06/14/16 22:15 99 35 06/14/16 22:00 96 06/14/16 20:30 98 35 06/14/16 20:00 35 06/14/16 20:00 96 06/14/16 20:00 99.9 91 23 102/61 99 06/14/16 18:47 100 100 06/14/16 18:00 96 06/14/16 17:20 100 35 06/14/16 16:00 35 06/14/16 16:00 97 06/14/16 16:00 99.9 97 23 102/55 99 06/14/16 14:00 106 Objective Radiology Results Last 48 hours Impressions Brain MRI 06/15/16 0000 Signed Impressions: Service Date/Time: Wednesday, June 15, 2016 09:10 - CONCLUSION: No acute abnormality seen. 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 Reginaldo Cain MD Head Magnetic Resonance Angiography 06/14/16 0000 Signed Impressions: Service Date/Time: Tuesday, June 14, 2016 18:23 - CONCLUSION: No evidence of vessel truncation or aneurysm. Simone Graham MD Micro and Labs Laboratory Tests Test 06/14/16 06/14/16 06/15/16 14:06 19:41 03:08 Prothrombin Time 14.8 Prothromb Time International 1.3 Ratio Activated Partial 26.3 Thromboplast Time Fibrinogen 474 Lactic Acid Level 4.3 4.4 White Blood Count 15.0 Red Blood Count 3.55 Hemoglobin 9.0 Hematocrit 29.1 Mean Corpuscular Volume 81.8 Mean Corpuscular Hemoglobin 25.2 Mean Corpuscular Hemoglobin 30.9 Concent Red Cell Distribution Width 16.3 Platelet Count 64 Mean Platelet Volume 8.8 Neutrophils (%) (Auto) 94.5 Lymphocytes (%) (Auto) 3.7 Monocytes (%) (Auto) 1.6 Eosinophils (%) (Auto) 0.1 Basophils (%) (Auto) 0.1 Neutrophils # (Auto) 14.2 Lymphocytes # (Auto) 0.6 Monocytes # (Auto) 0.2 Eosinophils # (Auto) 0.0 Basophils # (Auto) 0.0 CBC Comment AUTO DIFF Differential Total Cells 100 Counted Neutrophils % (Manual) 74 Band Neutrophils % 22 Lymphocytes % 4 Neutrophils # (Manual) 14.4 Nucleated Red Blood Cells 1 Differential Comment FINAL DIFF MANUAL Toxic Vacuolation PRESENT Platelet Estimate LOW Platelet Morphology Comment NORMAL Ovalocytes 1+ Sodium Level 143 Potassium Level 3.2 Chloride Level 107 Carbon Dioxide Level 26.8 Anion Gap 9 Blood Urea Nitrogen 17 Creatinine 0.88 Estimat Glomerular Filtration 81 Rate Random Glucose 105 Calcium Level 8.2 Phosphorus Level 1.6 Magnesium Level 2.3 Total Bilirubin 0.5 Aspartate Amino Transf 557 (AST/SGOT) Alanine Aminotransferase 225 (ALT/SGPT) Alkaline Phosphatase 68 Total Creatine Kinase 5472 Creatine Kinase MB 118.0 Creatine Kinase MB % 2.2 Total Protein 6.1 Albumin 1.9 Date/Time Procedure Status Source Growth 06/12/16 22:31 Gram Stain - Final Complete Cerebral Spinal Fluid Lumbar Puncture 06/12/16 22:31 CSF Culture - Final Complete Cerebral Spinal Fluid Lumbar Puncture NO GROWTH IN 72 HOURS 06/12/16 16:55 Urine Culture - Final Complete Urine Catheterized Urine Escherichia Coli 06/12/16 16:55 Aerobic Blood Culture - Preliminary Resulted Blood Peripheral NO GROWTH IN 3 DAYS 06/12/16 16:55 Anaerobic Blood Culture - Preliminary Resulted Blood Peripheral NO GROWTH IN 3 DAYS Susanna Boggs MD Jun 15, 2016 13:36
[2016-06-15] MEDS ORDERED: levETIRAcetam INJ 500 MG in SODIUM CHLORIDE 0.9% INJ 100 ML IV ONE (14:00)
--- NOTE | 2016-06-15 14:04 | MG ---
cc: MIRIAM CORDOVA M.D. Lab No: Date: 06/15/2016 Age: 56 Sex: F Race: HISTORY: An EEG was obtained on this 56-year-old patient with history of altered mental status and CVA with right-sided weakness. DESCRIPTION OF RECORD: The EEG shows bilateral theta and delta rhythms. There are low amplitude beta rhythms. Throughout the study there are some small sharp discharges possibly right more than left hemisphere and this seems to be a little bit more prominent towards the end. There is some alteration in level of consciousness. At times there is delta activity dominating the background rhythms. There is a lack of alpha rhythms in this recording. Photic stimulation shows some background changes bilaterally. INTERPRETATION: Abnormal EEG because of bihemispheric slowing. Besides the slowing, there are small sharp discharges bilaterally right more than left and these discharges have a somewhat epileptiform appearance but there are no ictal changes. MD SHYLA Romero/JCC /1:51 PM /1:58 PM
[2016-06-15 14:28] LABS: BACTERIA, URINE MOD /hpf; BLOOD, URINE LARGE (NEG); GLUCOSE,URINE 70 mg/dL (NEG); GRANULAR CAST, URINE 4 /lpf; HYALINE CAST, URINE 1 /lpf (RARE); KETONE, URINE NEG (NEG); MUCUS URINE FEW /lpf (OCC); NITRITE,URINE NEG (NEG); SQUAMOUS EPITHELIAL CELL URINE 2 /hpf (0-5); URINE COLOR YELLOW (YELLW/STRAW)
[2016-06-15 14:34] LABS: COMMENT (UR) CATH-CULTURE IND; CULTURE IF INDICATED CATH CULTURE IND
[2016-06-15 14:43] LABS: HEPARIN AB OD 0.156 O.D. (0.000-0.300); HEPARIN INDUCED PLATELET AB NEGATIVE (NEGATIVE)
--- NOTE | 2016-06-15 14:44 | HHI.NPPN ---
Subjective General Problems: Anemia Renal Failure: Acute History of Present Illness 56-year-old female with past medical history of hypertension, cerebrovascular accident who was brought to the hospital by family because of altered mental status. I was called to see the patient because of elevated BUN and creatinine. Her BUN was 67 and creatinine was 3.1 on presentation, previously in 2005 her creatinine was 0.8. Additional Remarks Patient remain intubated and sedated. Review of Systems General General Remarks Intubated and sedated. Objective Data Data 06/14/16 06/15/16 19:00 07:00 Intake Total 1106 ml 1950 ml Output Total 650 ml 1025 ml Balance 456 ml 925 ml Intake IV Total 1106 ml 1350 ml Other 600 ml Output Urine Total 650 ml 1025 ml # Bowel Movements 0 Vital Signs Date Time Temp Pulse Resp B/P Pulse Ox O2 Delivery O2 Flow Rate FiO2 06/15/16 12:10 100 35 06/15/16 12:00 35 06/15/16 12:00 94 06/15/16 12:00 99.2 95 22 109/57 99 06/15/16 10:14 35 06/15/16 10:14 100 35 06/15/16 10:00 86 06/15/16 09:00 99 35 06/15/16 08:30 35 06/15/16 08:00 99.3 81 17 93/57 99 06/15/16 08:00 35 06/15/16 06:00 83 06/15/16 04:20 100 35 06/15/16 04:00 79 06/15/16 04:00 35 06/15/16 04:00 99.1 87 23 91/57 99 06/15/16 02:00 81 06/15/16 01:18 100 35 06/15/16 00:00 99.3 81 23 90/54 99 06/15/16 00:00 40 06/15/16 00:00 96 06/14/16 22:15 99 35 06/14/16 22:00 96 06/14/16 20:30 98 35 06/14/16 20:00 35 06/14/16 20:00 96 06/14/16 20:00 99.9 91 23 102/61 99 06/14/16 18:47 100 100 06/14/16 18:00 96 4/22/17 17:20 100 35 06/14/16 16:00 35 06/14/16 16:00 97 06/14/16 16:00 99.9 97 23 102/55 99 -: 06/15/16 0308 06/15/16 0308 Microbiology 06/15/16 Gram Stain, Received Pending 06/15/16 Sputum Culture, Received Pending 06/15/16 Urine Culture, Received Pending Physical Exam General Appearance Remarks Intubated and sedated. Eyes Eye Exam: Pupils Equal Throat Throat Exam: Oral Mucosa [place] & Moist Neck Neck Exam: Neck Supple Pulmonary Resp Exam: Breath Sounds Equal, No Distress, Decreased Bases Cardiology CV Exam: Regular, Normal Sinus Rhythm Gastrointestinal/Abdomen GI Exam: Soft, Non-Tender, Bowel Sounds Present Extremeties Extremities Exam: No Edema Neurologic Neuro Exam: Sedated Assessment/Plan Assessment Summary: [place]STLEY/Acute Renal Failure, Dehydration Electrolyte Assessment: Hypernatremia Problem List: (1) Dehydration (2) Respiratory failure (3) UTI (urinary tract infection) (4) Altered mental status (5) Severe sepsis (6) Hypernatremia (7) Renal failure Plan Patient has been non oliguric. BUN and Creatinine improving. Most likely has dehydration and ATN causing WESTLEY. Continue IVF. Na. is better, Po4 is low, for replacement. I will sign off from Nephrology, call again if needed. Problem Qualifiers (1) Respiratory failure: Qualified Code: J96.00 - Acute respiratory failure, unspecified whether with hypoxia or hypercapnia (2) UTI (urinary tract infection): Qualified Code: N39.0 - Urinary tract infection without hematuria, site unspecified (3) Altered mental status: Qualified Code: R40.2432 - [place] coma scale total score 3-8, at arrival to emergency department Waldo Corral MD Jun 15, 2016 14:44
[2016-06-15] MEDS: levETIRAcetam INJ 500 MG in SODIUM CHLORIDE 0.9% INJ 100 ML IV SCH (22:41)
[2016-06-15] MEDS: FAMOTIDINE 20 MG/2 ML VIAL IV PUSH SCH (22:41)
[2016-06-15 23:12] LABS: POTASSIUM 3.8 MEQ/L (3.5-5.1)
[2016-06-15 23:30] LABS: CSF CRYPTOCOCCUS AG CONF ND (NOT DETECTD)
[2016-06-16] VITALS (18 sets, daily range): BP systolic 98–115; BP diastolic 61–70; PULSE 88–100; RESP 16–18; TEMP 98.7–100.1; O2SAT 97–100
[2016-06-16] MEDS: INSULIN NovoLIN REGULAR SUPPLEMENTAL SCALE SQ SCH ×4 (03:00→21:00)
[2016-06-16] MEDS: RESP: ALBUTEROL 2.5 MG/IPRATROPIUM 0.5 MG NEB (SCH) INH ×4 (03:35→16:22)
[2016-06-16] MEDS: CHLORHEXIDINE GLUCONATE 2 % 1 PACK (2 CLOTHS) TOP SCH ×2 (04:00→22:22)
[2016-06-16] MEDS: DEXT 5%-NACL 0.9% 1000 ML INJ 1,000 ML IV SCH ×3 (05:40→20:36)
[2016-06-16] MEDS: PIPERACIL-TAZO 4.5 GM PREMIX 100 ML IV SCH ×4 (05:41→20:34)
[2016-06-16 07:00] LABS: AUTOMATED NEUTROPHIL # 10.3 TH/MM3 (1.8-7.7); BASOPHIL % 0.1 % (0.0-2.0); HEMATOCRIT 27.2 % (35.0-46.0); LYMPH % 5.1 % (9.0-44.0); LYMPHOCYTE # 0.6 TH/MM3 (1.0-4.8); MEAN CELL VOLUME 79.6 FL (80.0-100.0); MEAN CORPUSCULAR HGB CONC 32.7 % (32.0-36.0); MONO % 1.4 % (0.0-8.0); NEUT % 93.4 % (16.0-70.0); PLATELET COUNT 63 TH/MM3 (150-450); RED BLOOD COUNT 3.42 MIL/MM3 (4.00-5.30); RED CELL DISTRIBUTION WIDTH 16.3 % (11.6-17.2)
[2016-06-16 07:02] LABS: HEMO FLAGS AUTO DIFF
[2016-06-16 07:37] LABS: ALT (GPT) 249 U/L (10-53); ANION GAP 10 MEQ/L (5-15); AST (GOT) 575 U/L (15-37); BICARBONATE 25.7 MEQ/L (21.0-32.0); BLOOD UREA NITROGEN 12 MG/DL (7-18); CHLORIDE 108 MEQ/L (98-107); GLOMERULAR FILTRATION RATE 91 ML/MIN (>89); MAGNESIUM 2.3 MG/DL (1.5-2.5); POTASSIUM 3.5 MEQ/L (3.5-5.1); SODIUM (NA) 144 MEQ/L (136-145)
[2016-06-16 07:50] LABS: ALKALINE PHOSPHATASE 81 U/L (45-117); CREATINE KINASE 5315 U/L (26-192); TOTAL BILIRUBIN ADULT 0.3 MG/DL (0.2-1.0)
[2016-06-16 08:08] LABS: CKMB 125.8 NG/ML (0.5-3.6)
--- NOTE | 2016-06-16 08:19 | RADRPT ---
EXAM DATE/TIME: 06/16/2016 04:51 [facility] COMPARISON: CHEST SINGLE AP, June 13, 2016, 4:14. INDICATIONS : Right upper lobe infiltrate. Fever. MEDICAL HISTORY : None. SURGICAL HISTORY : None. ENCOUNTER: Subsequent ACUITY: 4 - 6 days PAIN SCORE: 0/10 LOCATION: Bilateral chest FINDINGS: A single view of the chest demonstrates right basilar density likely atelectasis. Endotracheal tube, nasogastric tube and left subclavian central line in stable position. The cardiomediastinal contours are unremarkable. Osseous structures are intact. CONCLUSION: Right basilar density likely atelectasis.. Chadd Kahn MD on June 16, 2016 at 8:16 Board Certified Radiologist. This report was verified electronically.
[2016-06-16 08:20] LABS: PLATELET ESTIMATE SMEAR LOW (NORMAL); PLATELET MORPHOLOGY NORMAL (NORMAL); SCAN/DIFF AUTO DIFF CONFIRMED
[2016-06-16] MEDS: CHLORHEXIDINE 0.12% (ORAL KIT) 15 ML CUP MT SCH ×2 (08:49→20:35)
[2016-06-16] MEDS: PREGABALIN 75 MG CAP PO SCH ×2 (08:50→20:33)
[2016-06-16] MEDS: LACTULOSE SYRUP 20 GM/30 ML CUP PO SCH ×2 (08:50→20:33)
[2016-06-16] MEDS: SODIUM CHLORIDE 0.9% FLUSH 10 ML FLUSH IV FLUSH SCH ×2 (08:50→20:34)
[2016-06-16] MEDS: BACLOFEN 10 MG TAB PO SCH ×3 (08:50→17:07)
[2016-06-16] MEDS: levETIRAcetam INJ 500 MG in SODIUM CHLORIDE 0.9% INJ 100 ML IV SCH ×2 (08:50→20:34)
[2016-06-16] MEDS: SODIUM PHOSPHATE INJ 30 MMOL in SODIUM CHLOR 0.9% 250 ML INJ 240 ML IV PRN (08:51)
[2016-06-16] MEDS: POTASSIUM CHLOR 40 MEQ PREMIX 100 ML IV PRN (08:51)
--- NOTE | 2016-06-16 09:14 | HHI.CCPN ---
Subjective Remarks/Hospital Course 56-year-old female brought in by EMS emergently as altered mental status, hypoxia and temperature 104. Patient has a history of CVA many years ago. Per caregiver she didn't feel well since yesterday and wasn't taking any of medications including baclofen. Patient was unable to communicate due to her altered mental status. As per EMS not much history was available from the family but she has history of CVA as baseline but communicates. In the emergency department patient's oxygen saturation was low 70s upon EMS arrival. They had her on oxygen via nonrebreather and sats of 93%. GCS was 6 and she was intubated by ER attending for an airway protection. 06/13 Patient is sedated with Versed and on Bicarb drip. Renal function is improving with Cr: 2.12 from 3.19 UO: 1350ml since yesterday. Afebrile. 06/14 Patient remains sedated and intubated. Afebrile. Renal function continue to improve with Cr: 1.18 today from 1.53. 06/15 No acute events overnight. Off sedation remains intubated. Patient tolerated CPAP all day yesterday. MRA brain last night is unremarkable. T:99.9 06/16 Patient remains intubated off sedation. Afebrile. Tolerated CPAP all day yesterday remains encephalopathic. Objective Vital Signs Date Time Temp Pulse Resp B/P Pulse Ox O2 Delivery O2 Flow Rate FiO2 06/16/16 06:00 90 06/16/16 04:19 99 35 06/16/16 04:00 98.7 16 102/65 06/12/16 21:01 Ventilator Intake and Output 06/15/16 06/15/16 06/16/16 08:00 16:00 00:00 Intake Total 1200 ml 288 ml 1142 ml Output Total 475 ml 525 ml 700 ml Balance 725 ml -237 ml 442 ml Result Diagram: 06/16/16 0604 06/16/16 06 Other Results Laboratory Tests Test 06/15/16 06/15/16 06/15/16 06/16/16 12:40 16:20 22:40 06:04 Urine Color YELLOW Urine Turbidity CLOUDY Urine pH 6.0 Urine Specific [place] 1.016 Urine Protein 100 mg/dL Urine Glucose (UA) 70 mg/dL Urine Ketones NEG mg/dL Urine Occult Blood LARGE Urine Nitrite NEG Urine Bilirubin NEG Urine Urobilinogen LESS THAN 2.0 MG/DL Urine Leukocyte Esterase NEG Urine RBC 1 /hpf Urine WBC 4 /hpf Urine Squamous Epithelial 2 /hpf Cells Urine Amorphous Sediment OCC Urine Bacteria MOD /hpf Urine Hyaline Casts 1 /lpf Urine Granular Casts 4 /lpf Urine Mucus FEW /lpf Microscopic Urinalysis Comment CATH-CULTURE IND Lactic Acid Level 3.6 mmol/L Potassium Level 3.8 MEQ/L 3.5 MEQ/L Phosphorus Level 1.8 MG/DL 2.0 MG/DL White Blood Count 11.0 TH/MM3 Red Blood Count 3.42 MIL/MM3 Hemoglobin 8.9 GM/DL Hematocrit 27.2 % Mean Corpuscular Volume 79.6 FL Mean Corpuscular Hemoglobin 26.0 PG Mean Corpuscular Hemoglobin 32.7 % Concent Red Cell Distribution Width 16.3 % Platelet Count 63 TH/MM3 Mean Platelet Volume 9.8 FL Neutrophils (%) (Auto) 93.4 % Lymphocytes (%) (Auto) 5.1 % Monocytes (%) (Auto) 1.4 % Eosinophils (%) (Auto) 0.0 % Basophils (%) (Auto) 0.1 % Neutrophils # (Auto) 10.3 TH/MM3 Lymphocytes # (Auto) 0.6 TH/MM3 Monocytes # (Auto) 0.2 TH/MM3 Eosinophils # (Auto) 0.0 TH/MM3 Basophils # (Auto) 0.0 TH/MM3 CBC Comment AUTO DIFF Differential Comment AUTO DIFF CONFIRMED Platelet Estimate LOW Platelet Morphology Comment NORMAL Sodium Level 144 MEQ/L Chloride Level 108 MEQ/L Carbon Dioxide Level 25.7 MEQ/L Anion Gap 10 MEQ/L Blood Urea Nitrogen 12 MG/DL Creatinine 0.79 MG/DL Estimat Glomerular Filtration 91 ML/MIN Rate Random Glucose 111 MG/DL Calcium Level 8.3 MG/DL Magnesium Level 2.3 MG/DL Total Bilirubin 0.3 MG/DL Aspartate Amino Transf 575 U/L (AST/SGOT) Alanine Aminotransferase 249 U/L (ALT/SGPT) Alkaline Phosphatase 81 U/L Total Creatine Kinase 5315 U/L Creatine Kinase MB 125.8 NG/ML Creatine Kinase MB % 2.4 % Total Protein 6.1 GM/DL Albumin 1.7 GM/DL Imaging Last Impressions Chest X-Ray 06/16/16 0000 Signed Impressions: Service Date/Time: Thursday, June 16, 2016 04:51 - CONCLUSION: Right basilar density likely atelectasis.. Chadd Kahn MD Brain MRI 06/15/16 Signed Impressions: Service Date/Time: Wednesday, June 15, 2016 09:10 - CONCLUSION: No acute abnormality seen. 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 Reginaldo Cain MD Head Magnetic Resonance Angiography 06/14/16 Signed Impressions: Service Date/Time: Tuesday, June 14, 2016 18:23 - CONCLUSION: No evidence of vessel truncation or aneurysm. Simone Graham MD Liver Ultrasound 06/13/16 Signed Impressions: Service Date/Time: Monday, June 13, 2016 09:42 - CONCLUSION: 1. Small amount free fluid identified medial to the lower pole of the right kidney. 2. Slight increased hepatic echotexture suggesting some degree of fatty infiltration. 3. Please note the body and tail of the pancreas are obscured by overlying bowel gas. The head neck and uncinate process are sonographically intact. Mauro Leslie MD Head CT 06/12/16 1657 Signed Impressions: Service Date/Time: May 21:37 - CONCLUSION: Unremarkable study. Jose Martinez MD Renal Ultrasound 06/12/16 Signed Impressions: Service Date/Time: May 23:51 - CONCLUSION: 1. Mild pelvocaliectasis on the right. No hydronephrosis involving either kidney. Simone Woody Jr., MD Chest CT 06/12/16 Signed Impressions: Service Date/Time: May 21:39 - CONCLUSION: Right upper lobe parenchymal process may represent pneumonia, however follow up is suggested with repeat noncontrast chest CT in 2-4 weeksafter appropriate clinical therapy. Jose Martinez MD Abdomen/Pelvis CT 06/12/16 Signed Impressions: Service Date/Time: May 21:39 - CONCLUSION: Essentially unremarkable study. Jose Martinez MD Objective Remarks GENERAL: Elderly woman sedated and intubated SKIN: Warm and dry. HEAD: Normocephalic. EYES: No scleral icterus. No injection or drainage. NECK: Supple, trachea midline. No JVD or lymphadenopathy. CARDIOVASCULAR: Regular rate and rhythm without murmurs, gallops, or rubs. RESPIRATORY: Breath sounds equal bilaterally. No accessory muscle use. GASTROINTESTINAL: Abdomen soft, non-tender, nondistended. MUSCULOSKELETAL: No cyanosis, or edema. BACK: Nontender without obvious deformity. No CVA tenderness. EXTREMITIES: No clubbing cyanosis or edema A/P Assessment and Plan VDRF Encephalopathy SIRS/sepsis Acute kidney injury..improving Rhabdo Hypernatremia Hypokalemia Anemia Lactic acidemia Leukocytosis- resolved Elevated LFT UTI Plan Neuro: Off sedation. Monitor neuro status and avoid sedatives. Ammonia level: 40, TSH 2.5. Continue with Lactulose. CT brain: No acute findings. UDS+ +Benzos MRA brain 06/14- Unremarkable. s/p LP showed clear CSF and 15 WBC. EEG: Bihemispheric slowing, small sharp waves b/l neuro is following- Dr. Boggs, On Keppra 500mg Q12 Pulm: Continue with vent support keep sat >92% Bronchodilators, ICU vent bundle. SBT trials as cherie CV: Monitor HR and BP keep MAP>65mmHg. Lactic acid trending down. : Monitor renal function, I/O's, avoid nephrotoxins. Electrolytes replacement per protocol. Renal US: No hydronephrosis. Renal is following- Dr. Corral IVF D5NS@100ml/hr monitor Sodium level and CK's. Will need phos replacement GI: On Pepcid 20meq IV qhs,on tube feeds with Glucerna 1.5 with goal rate 45ml/ hr Monitor LFT's, US liver: Fatty liver, GI eval. ID: Continue abx per ID (Zyvox,Zosyn)monitor for signs of infections ( Fever, WBC) Patient was given Vanco, Zosyn, Zithromax in ED. 06/12 Urine cx: E.coli 06/12 BC: No growth 06/12 CSG: NGTD Heme: Monitor CBC, coags, Hep plt ab negative. Thrombocytopenia likely 2nd sepsis Endo: SSI for glycemic control, TSH level: 2.5 GI Prophylaxis with Pepcid DVT prophylaxis with SCD, Level 3 Jose Smith MD Jun 16, 2016 09:14
[2016-06-16] MEDS ORDERED: METOCLOPRAMIDE HCL 10 MG/2 ML VIAL IV PUSH PRN (09:15)
[2016-06-16] MEDS: LINEZOLID 600 MG PREMIX 300 ML IV SCH ×2 (11:04→20:34)
--- NOTE | 2016-06-16 11:18 | HHI.PR ---
Review/Management Daily Summary 06/15 eeg may be showing paroxysmal discharges i will review eeg, might try anticonvulsants mri negative 06/16 basically unchanged eeg with some epileptiform features trial with krystianra initiated Subjective Subjective Comments No acute neuro events reported Active Medications Current Medications Medications (Trade) Dose Ordered Sig/Kiel Route Start Time Stop Time Status Last Admin (fentaNYL DRIP) 250 ml @ 0 mls/hr TITRATE IV 06/12/16 17:30 (NS Flush) 2 ml UNSCH PRN IV FLUSH 06/12/16 18:00 06/15/16 09:42 (NS Flush) 2 ml BID IV FLUSH 06/12/16 21:00 06/16/16 08:50 Miscellaneous Information 1 Q361D XX 06/12/16 18:00 (Chlorhexidine 2% Cloth) 3 pack Taper DAILY@04 TOP 06/13/16 04:00 06/09/17 03:59 06/16/16 04:00 (Chlorhexidine 2% Cloth) 3 pack UNSCH PRN TOP 06/12/16 18:00 (Peridex 0.12% Liq) 15 ml BID@08,20 MT 06/12/16 20:00 06/16/16 08:49 (Lyrica) 75 mg BID PO 06/12/16 21:00 06/16/16 08:50 (Zoloft) 100 mg DAILY PO 06/12/16 20:15 Hold 06/15/16 09:41 (Lioresal) 10 mg TID PO 06/12/16 20:15 06/16/16 08:50 (Pepcid Inj) 20 mg HS IV PUSH 06/13/16 21:00 06/15/16 22:41 (D50w (Vial) Inj) 25 ml UNSCH PRN IV PUSH 06/13/16 08:15 (Glucagon Inj) 1 mg UNSCH PRN OTHER 06/13/16 08:15 (NovoLIN R SUPPLEMENTAL SCALE) 1 Q6H SQ 06/13/16 09:00 Lactulose 15 ml 15 ml BID PO 06/13/16 11:30 06/16/16 08:50 Potassium Chloride 100 ml @ 50 mls/hr Q2H PRN IV 06/13/16 16:00 06/15/16 15:35 (KCl 20 Meq Premix Inj) 100 ml @ 50 mls/hr Q2H PRN IV 06/13/16 16:00 Potassium Bicarb/ Potassium Chloride 50 meq 50 meq UNSCH PRN PO 06/13/16 16:00 Potassium Chloride 100 ml @ 25 mls/hr UNSCH PRN IV 06/13/16 16:00 06/16/16 08:51 Potassium Chloride 100 ml @ 50 mls/hr Q2H PRN IV 06/13/16 16:00 (Magnesium Sulfate Inj/NS Inj) 100 ml @ 50 mls/hr UNSCH PRN IV 06/13/16 16:00 Magnesium Oxide 800 mg 800 mg UNSCH PRN PO 06/13/16 16:00 (Magnesium Sulfate Inj/NS Inj) 100 ml @ 50 mls/hr UNSCH PRN IV 06/13/16 16:00 Potassium Phosphate 2000 mg 2,000 mg Q4H PRN PO 06/13/16 16:00 (Sodium Phosphate Inj/NS 250 ml Inj) 250 ml @ 42 mls/hr UNSCH PRN IV 06/13/16 16:00 06/16/16 08:51 Potassium Phosphate 2000 mg 2,000 mg UNSCH PRN PO/TUBE 06/13/16 16:00 Potassium Phosphate 30 mmol/ Sodium Chloride 260 ml @ 42 mls/hr UNSCH PRN IV 06/13/16 16:00 Dextrose/Sodium Chloride 1,000 ml @ 100 mls/hr Q10H IV 06/15/16 08:00 06/16/16 05:40 Piperacillin Sod/ Tazobactam Sod 100 ml @ 200 mls/hr Q6H IV 06/15/16 11:00 06/16/16 10:06 Linezolid 300 ml @ 300 mls/hr Q12H IV 06/15/16 12:00 06/16/16 11:04 (Keppra Inj/NS Inj) 105 ml @ 420 mls/hr Q12HR IV 06/15/16 21:00 06/16/16 08:50 (Reglan Inj) 5 mg Q8H PRN IV PUSH 06/16/16 09:15 Allergies Allergies Coded Allergies DO NOT USE (Verified Allergy, Mild, Hallucinations, 06/12/16) Exam I&O / VS 06/15/16 06/15/16 06/16/16 15:00 23:00 07:00 Intake Total 288 ml 1142 ml 1107 ml Output Total 525 ml 700 ml 400 ml Balance -237 ml 442 ml 707 ml Intake IV Total 288 ml 906 ml 1047 ml Tube Feeding 116 ml Other 120 ml 60 ml Output Urine Total 525 ml 700 ml 400 ml Tube Feeding Residual Discard 0 ml # Bowel Movements 0 0 Vital Signs Date Time Temp Pulse Resp B/P Pulse Ox O2 Delivery O2 Flow Rate FiO2 06/16/16 09:10 98 35 06/16/16 06:00 90 06/16/16 04:19 99 35 06/16/16 04:00 98.7 90 16 102/65 100 06/16/16 04:00 92 06/16/16 04:00 35 06/16/16 02:00 93 06/16/16 01:27 100 35 06/16/16 00:00 35 06/16/16 00:00 90 06/16/16 00:00 98.7 90 16 99/61 100 06/15/16 22:00 85 06/15/16 21:40 100 35 06/15/16 20:00 35 06/15/16 20:00 99.0 91 20 94/61 100 06/15/16 20:00 91 06/15/16 18:00 92 06/15/16 16:15 100 35 06/15/16 16:00 35 06/15/16 16:00 92 06/15/16 16:00 99.0 92 23 91/60 99 06/15/16 14:00 92 06/15/16 12:10 100 35 06/15/16 12:00 35 06/15/16 12:00 94 06/15/16 12:00 99.2 95 22 109/57 99 Objective Micro and Labs Laboratory Tests Test 06/15/16 06/15/16 06/15/16 06/16/16 12:40 16:20 22:40 06:04 Urine Color YELLOW Urine Turbidity CLOUDY Urine pH 6.0 Urine Specific [place] 1.016 Urine Protein 100 Urine Glucose (UA) 70 Urine Ketones NEG Urine Occult Blood LARGE Urine Nitrite NEG Urine Bilirubin NEG Urine Urobilinogen LESS THAN 2.0 Urine Leukocyte Esterase NEG Urine RBC 1 Urine WBC 4 Urine Squamous Epithelial 2 Cells Urine Amorphous Sediment OCC Urine Bacteria MOD Urine Hyaline Casts 1 Urine Granular Casts 4 Urine Mucus FEW Microscopic Urinalysis Comment CATH-CULTURE IND Lactic Acid Level 3.6 Potassium Level 3.8 3.5 Phosphorus Level 1.8 2.0 White Blood Count 11.0 Red Blood Count 3.42 Hemoglobin 8.9 Hematocrit 27.2 Mean Corpuscular Volume 79.6 Mean Corpuscular Hemoglobin 26.0 Mean Corpuscular Hemoglobin 32.7 Concent Red Cell Distribution Width 16.3 Platelet Count 63 Mean Platelet Volume 9.8 Neutrophils (%) (Auto) 93.4 Lymphocytes (%) (Auto) 5.1 Monocytes (%) (Auto) 1.4 Eosinophils (%) (Auto) 0.0 Basophils (%) (Auto) 0.1 Neutrophils # (Auto) 10.3 Lymphocytes # (Auto) 0.6 Monocytes # (Auto) 0.2 Eosinophils # (Auto) 0.0 Basophils # (Auto) 0.0 CBC Comment AUTO DIFF Differential Comment AUTO DIFF CONFIRMED Platelet Estimate LOW Platelet Morphology Comment NORMAL Sodium Level 144 Chloride Level 108 Carbon Dioxide Level 25.7 Anion Gap 10 Blood Urea Nitrogen 12 Creatinine 0.79 Estimat Glomerular Filtration 91 Rate Random Glucose 111 Calcium Level 8.3 Magnesium Level 2.3 Total Bilirubin 0.3 Aspartate Amino Transf 575 (AST/SGOT) Alanine Aminotransferase 249 (ALT/SGPT) Alkaline Phosphatase 81 Total Creatine Kinase 5315 Creatine Kinase MB 125.8 Creatine Kinase MB % 2.4 Total Protein 6.1 Albumin 1.7 Date/Time Procedure Status Source Growth 06/15/16 12:40 Urine Culture Received Urine Catheterized Urine Pending 06/15/16 12:30 Gram Stain - Final Resulted Sputum Endotracheal 06/15/16 12:30 Sputum Culture Resulted Sputum Endotracheal Pending 06/12/16 16:55 Urine Culture - Final Complete Urine Catheterized Urine Escherichia Coli 06/12/16 16:55 Aerobic Blood Culture - Preliminary Resulted Blood Peripheral NO GROWTH IN 4 DAYS 06/12/16 16:55 Anaerobic Blood Culture - Preliminary Resulted Blood Peripheral NO GROWTH IN 4 DAYS Documentation Reviewed: Reviewed old records Susanna Boggs MD Jun 16, 2016 11:18
[2016-06-16 16:56] LABS: LYME IGG IMMUNOBLOT CSF None Detected bands (None Detected); LYME IGM IMMUNOBLOT CSF None Detected bands (None Detected)
--- NOTE | 2016-06-16 16:58 | PD.CONS ---
HPI History of Present Illness This is a 56 year old female who was brought to the ER for altered mental status , hypoxia,and fevers. She has a hx of CVA and is currently intubated on the mechanical ventilator and unable to provide any history and therefore the history has been obtained from the nursing staff and EMR. According to the EMR , she had been lethargic and not taking her medications. EMS noted her to have an oxygen saturation in the low 70's when they arrived. She is now in the ICU, being treated for acute respiratory failure, encephalopathy, SIRS/Sepsis, acute kidney injury, rhabdomyolysis, multiple electrolyte abnormalities. GI has been consulted for elevated LFTs. On admission, she was noted to have T. Bili 0.5, AST 234, ALT 115, ALk Phosph 70. These have gradually been increasing and today she has T. Bili 0.5, AST 557, ALT 225, Alk Phosph 68. It is unclear if she has any history of liver disease or if she ever abused alcohol. Liver Ultrasound (06/13/16)----> 1. Small amount free fluid identified medial to the lower pole of the right kidney. 2. Slight increased hepatic echotexture suggesting some degree of fatty infiltration. 3. Please note the body and tail of the pancreas are obscured by overlying bowel gas. The head neck and uncinate process are sonographically intact. Hepatitis panel negative. She does have sepsis/UTI with GNR/E.Coli, Sputum with Staphylococcus aureus and she is on Zyvox, Zosyn. Of note, the patient is on Keppra also. (An Sullivan) PFSH Past Medical History HTN CVA Past Surgical History Partial hysterecotmy (An Sullivan) Coded Allergies: DO NOT USE (Verified Allergy, Mild, Hallucinations, 06/12/16) Medications Allergies Coded Allergies Type Severity Reaction Last Updated Verified DO NOT USE Allergy Mild Hallucinations 06/12/16 Yes Active Scripts Medications Dose Route/Sig Days Date Category Temazepam 15 Mg Cap 15 Mg PO HS PRN 06/12/16 Reported Amlodipine (Amlodipine Besylate) 10 Mg Tab 10 Mg PO DAILY 06/12/16 Reported Meclizine (Meclizine HCl) 25 Mg Tab 25 Mg PO QID PRN 06/12/16 Reported Ranitidine (Ranitidine HCl) 150 Mg Tab 150 Mg PO BID 06/12/16 Reported Baclofen 10 Mg Tab 10 Mg PO TID 06/12/16 Reported Sertraline (Sertraline HCl) 100 Mg Tab 100 Mg PO DAILY 06/12/16 Reported Lyrica (Pregabalin) 75 Mg Cap 75 Mg PO BID 06/12/16 Reported Family History Unable to obtain Social History Unable to obtain (An Sullivan) Review of Systems ROS Unable to obtain (An Sullivan) GI Exam Vitals I&O Vital Signs Date Time Temp Pulse Resp B/P Pulse Ox O2 Delivery O2 Flow Rate FiO2 06/16/16 16:16 97 35 06/16/16 16:00 97 06/16/16 14:00 99 06/16/16 12:22 99 35 06/16/16 12:00 99.5 100 18 109/70 99 06/16/16 12:00 100 06/16/16 12:00 35 06/16/16 10:00 97 06/16/16 09:10 98 35 06/16/16 08:00 88 06/16/16 08:00 99.0 88 16 98/61 100 06/16/16 08:00 35 06/16/16 06:00 90 06/16/16 04:19 99 35 06/16/16 04:00 98.7 90 16 102/65 100 06/16/16 04:00 92 06/16/16 04:00 35 06/16/16 02:00 93 06/16/16 01:27 100 35 06/16/16 00:00 35 06/16/16 00:00 90 06/16/16 00:00 98.7 90 16 99/61 100 06/15/16 22:00 85 06/15/16 21:40 100 35 06/15/16 20:00 35 06/15/16 20:00 99.0 91 20 94/61 100 06/15/16 20:00 91 06/15/16 18:00 92 I/O 06/15/16 06/15/16 06/15/16 06/16/16 06/16/16 06/16/16 07:00 15:00 23:00 07:00 15:00 23:00 Intake Total 1200 ml 288 ml 1142 ml 1107 ml 1463 ml Output Total 475 ml 525 ml 700 ml 400 ml 525 ml Balance 725 ml -237 ml 442 ml 707 ml 938 ml Intake IV Total 875 ml 288 ml 906 ml 1047 ml 1463 ml Tube Feeding 116 ml Other 325 ml 120 ml 60 ml Output Urine Total 475 ml 525 ml 700 ml 400 ml 525 ml Tube Feeding Residual Discard 0 ml # Bowel Movements 0 0 Imaging Last Impressions Chest X-Ray 06/16/16 0000 Signed Impressions: Service Date/Time: Thursday, June 16, 2016 04:51 - CONCLUSION: Right basilar density likely atelectasis.. Chadd Kahn MD Brain MRI 06/15/16 0000 Signed Impressions: Service Date/Time: Wednesday, June 15, 2016 09:10 - CONCLUSION: No acute abnormality seen. 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 Reginaldo Cain MD Head Magnetic Resonance Angiography 06/14/16 Signed Impressions: Service Date/Time: Tuesday, June 14, 2016 18:23 - CONCLUSION: No evidence of vessel truncation or aneurysm. Simone Graham MD Liver Ultrasound 06/13/16 0000 Signed Impressions: Service Date/Time: Monday, June 13, 2016 09:42 - CONCLUSION: 1. Small amount free fluid identified medial to the lower pole of the right kidney. 2. Slight increased hepatic echotexture suggesting some degree of fatty infiltration. 3. Please note the body and tail of the pancreas are obscured by overlying bowel gas. The head neck and uncinate process are sonographically intact. Mauro Leslie MD Head CT 06/12/16 1657 Signed Impressions: Service Date/Time: May 21:37 - CONCLUSION: Unremarkable study. Jose Martinez MD Renal Ultrasound 06/12/16 Signed Impressions: Service Date/Time: May 23:51 - CONCLUSION: 1. Mild pelvocaliectasis on the right. No hydronephrosis involving either kidney. Simone Woody Jr., MD Chest CT 06/12/16 0000 Signed Impressions: Service Date/Time: May 21:39 - CONCLUSION: Right upper lobe parenchymal process may represent pneumonia, however follow up is suggested with repeat noncontrast chest CT in 2-4 weeksafter appropriate clinical therapy. Jose Martinez MD Abdomen/Pelvis CT 06/12/16 0000 Signed Impressions: Service Date/Time: May 21:39 - CONCLUSION: Essentially unremarkable study. Jose Martinez MD Laboratory Test 06/15/16 06/16/16 06/16/16 22:40 06:04 12:45 Potassium Level 3.8 MEQ/L 3.5 MEQ/L Phosphorus Level 1.8 MG/DL 2.0 MG/DL White Blood Count 11.0 TH/MM3 Red Blood Count 3.42 MIL/MM3 Hemoglobin 8.9 GM/DL Hematocrit 27.2 % Mean Corpuscular Volume 79.6 FL Mean Corpuscular Hemoglobin 26.0 PG Mean Corpuscular Hemoglobin 32.7 % Concent Red Cell Distribution Width 16.3 % Platelet Count 63 TH/MM3 Mean Platelet Volume 9.8 FL Neutrophils (%) (Auto) 93.4 % Lymphocytes (%) (Auto) 5.1 % Monocytes (%) (Auto) 1.4 % Eosinophils (%) (Auto) 0.0 % Basophils (%) (Auto) 0.1 % Neutrophils # (Auto) 10.3 TH/MM3 Lymphocytes # (Auto) 0.6 TH/MM3 Monocytes # (Auto) 0.2 TH/MM3 Eosinophils # (Auto) 0.0 TH/MM3 Basophils # (Auto) 0.0 TH/MM3 CBC Comment AUTO DIFF Differential Comment AUTO DIFF CONFIRMED Platelet Estimate LOW Platelet Morphology Comment NORMAL Sodium Level 144 MEQ/L Chloride Level 108 MEQ/L Carbon Dioxide Level 25.7 MEQ/L Anion Gap 10 MEQ/L Blood Urea Nitrogen 12 MG/DL Creatinine 0.79 MG/DL Estimat Glomerular Filtration 91 ML/MIN Rate Random Glucose 111 MG/DL Calcium Level 8.3 MG/DL Magnesium Level 2.3 MG/DL Total Bilirubin 0.3 MG/DL Aspartate Amino Transf 575 U/L (AST/SGOT) Alanine Aminotransferase 249 U/L (ALT/SGPT) Alkaline Phosphatase 81 U/L Total Creatine Kinase 5315 U/L Creatine Kinase MB 125.8 NG/ML Creatine Kinase MB % 2.4 % Total Protein 6.1 GM/DL Albumin 1.7 GM/DL Lactic Acid Level 4.5 mmol/L Date/Time Procedure Status Source Growth 06/15/16 12:40 Urine Culture - Preliminary Resulted Urine Catheterized Urine Gram Negative [place] 06/15/16 12:30 Gram Stain - Final Resulted Sputum Endotracheal 06/15/16 12:30 Sputum Culture - Preliminary Resulted Staphylococcus Aureus 06/12/16 16:55 Urine Culture - Final Complete Urine Catheterized Urine Escherichia Coli 06/12/16 16:55 Aerobic Blood Culture - Preliminary Resulted Blood Peripheral NO GROWTH IN 4 DAYS 06/12/16 16:55 Anaerobic Blood Culture - Preliminary Resulted Blood Peripheral NO GROWTH IN 4 DAYS Physical Examination HEENT: Normocephalic; atraumatic; no jaundice. CHEST: Course breath sounds, OETT to vent. CARDIAC: RRR ABDOMEN: Soft, distended,nontender, slightly tympanic; no hepatosplenomegaly; bowel sounds are present in all four quadrants. EXTREMITIES: Generlaized edema. SKIN: Normal; no rash; no jaundice. A&P MECHANIC: Lethargic, does not follow commands (An Sullivan) Assessment and Plan Plan ASSESSMENT: - Elevated LFTs, unclear etiology. On admission, she was noted to have T. Bili 0.5, AST 234, ALT 115, ALk Phosph 70 and they have gradually been increasing and today she has T. Bili 0.5, AST 557, ALT 225, Alk Phosph 68. It is unclear if she has any history of liver disease or if she ever abused alcohol. Liver Ultrasound (06/13/16)----> 1. Small amount free fluid identified medial to the lower pole of the right kidney. 2. Slight increased hepatic echotexture suggesting some degree of fatty infiltration. 3. Please note the body and tail of the pancreas are obscured by overlying bowel gas. The head neck and uncinate process are sonographically intact. Hepatitis panel negative. She does have sepsis/UTI with GNR/E.Coli and is on both Keppra and Zosyn. We will get liver workup, but this could possibly be related to infection vs. medications. If they continue to rise, would reconsider Keppra and Zosyn. - Abdominal distention, high residuals, n/v. Suspect ileus. Abdomen distended , mildly tympanic. Hypoactive bs. No bm. N/V with TF overnight. Suspect ileus, will get KUB, cont. reglan, miralax, SSE x 2. PLAN: - NPO - NGT to LIWS - KUB today - Add Miralax - SSE x 2 if no bm - Add Reglan - Liver workup - If her LFTs continue to rise, consider replacing Zosyn/Keppra if possible - Supportive care - FUrther recommendations to follow based on results of above. (An Sullivan) Physician Comments Patient seen and examined Agree with above Continue with current supportive care Monitor labs LFT elevation probably multifactorial related to sepsis and/or medication Workup in progress (Chris Jj MD) An Sullivan Jun 16, 2016 16:58 Chris Jj MD Jun 16, 2016 19:19
[2016-06-16] MEDS: POLYETHYLENE GLYCOL 17 GM PKG PO SCH (17:31)
--- NOTE | 2016-06-16 17:47 | RADRPT ---
EXAM DATE/TIME: 06/16/2016 17:15 [facility] COMPARISON: No previous studies available for comparison. INDICATIONS : Ileus. MEDICAL HISTORY : Cerebrovascular disease. SURGICAL HISTORY : Hysterectomy. ENCOUNTER: Initial ACUITY: 1 day PAIN SCORE: Non-responsive. LOCATION: Bilateral abdomen FINDINGS: 2 AP supine views of the abdomen and pelvis were obtained and demonstrate mild gaseous distention in ortions of the colon. The transverse colon measures up to approximately 7.3 cm in greatest diameter. There are multiple borderline dilated air containing loops of small bowel in the central abdomen as w ell. There is no evidence of free air or mass effect on this supine study. There are calcified phlebo liths in the pelvis. CONCLUSION: 1. Nonspecific bowel gas pattern which may represent a mild ileus or gastroenteritis. Rico Pedraza MD on June 16, 2016 at 17:42 Board Certified Radiologist. This report was verified electronically.
--- NOTE | 2016-06-16 18:53 | HHI.IDPN ---
Subjective Subjective Remarks MRI unremarkable Not tolearating TF + low grade fever no BM since admission Antibiotics Zosyn zyvox Past Medical History Reviewed Allergies: Coded Allergies: DO NOT USE (Verified Allergy, Mild, Hallucinations, 06/12/16) Objective . Vital Signs Date Time Temp Pulse Resp B/P Pulse Ox O2 Delivery O2 Flow Rate FiO2 06/16/16 18:00 92 06/16/16 16:16 97 35 06/16/16 16:00 97 06/16/16 16:00 35 06/16/16 16:00 99.7 97 17 115/65 99 06/16/16 14:00 99 06/16/16 12:22 99 35 06/16/16 12:00 99.5 100 18 109/70 99 06/16/16 12:00 100 06/16/16 12:00 35 06/16/16 10:00 97 06/16/16 09:10 98 35 06/16/16 08:00 88 06/16/16 08:00 99.0 88 16 98/61 100 06/16/16 08:00 35 06/16/16 06:00 90 06/16/16 04:19 99 35 06/16/16 04:00 98.7 90 16 102/65 100 06/16/16 04:00 92 06/16/16 04:00 35 06/16/16 02:00 93 06/16/16 01:27 100 35 06/16/16 00:00 35 06/16/16 00:00 90 06/16/16 00:00 98.7 90 16 99/61 100 06/15/16 22:00 85 06/15/16 21:40 100 35 06/15/16 20:00 35 06/15/16 20:00 99.0 91 20 94/61 100 06/15/16 20:00 91 06/15/16 06/15/16 06/16/16 15:00 23:00 07:00 Intake Total 288 ml 1142 ml 1107 ml Output Total 525 ml 700 ml 400 ml Balance -237 ml 442 ml 707 ml Intake IV Total 288 ml 906 ml 1047 ml Tube Feeding 116 ml Other 120 ml 60 ml Output Urine Total 525 ml 700 ml 400 ml Tube Feeding Residual Discard 0 ml # Bowel Movements 0 0 . Laboratory Tests Test 06/15/16 06/16/16 03:08 06:04 White Blood Count 15.0 TH/MM3 11.0 TH/MM3 Red Blood Count 3.55 MIL/MM3 3.42 MIL/MM3 Hemoglobin 9.0 GM/DL 8.9 GM/DL Hematocrit 29.1 % 27.2 % Mean Corpuscular Volume 81.8 FL 79.6 FL Mean Corpuscular Hemoglobin 25.2 PG 26.0 PG Mean Corpuscular Hemoglobin 30.9 % 32.7 % Concent Red Cell Distribution Width 16.3 % 16.3 % Platelet Count 64 TH/MM3 63 TH/MM3 Mean Platelet Volume 8.8 FL 9.8 FL Neutrophils (%) (Auto) 94.5 % 93.4 % Lymphocytes (%) (Auto) 3.7 % 5.1 % Monocytes (%) (Auto) 1.6 % 1.4 % Eosinophils (%) (Auto) 0.1 % 0.0 % Basophils (%) (Auto) 0.1 % 0.1 % Neutrophils # (Auto) 14.2 TH/MM3 10.3 TH/MM3 Lymphocytes # (Auto) 0.6 TH/MM3 0.6 TH/MM3 Monocytes # (Auto) 0.2 TH/MM3 0.2 TH/MM3 Eosinophils # (Auto) 0.0 TH/MM3 0.0 TH/MM3 Basophils # (Auto) 0.0 TH/MM3 0.0 TH/MM3 CBC Comment AUTO DIFF AUTO DIFF Differential Total Cells 100 Counted Neutrophils % (Manual) 74 % Band Neutrophils % 22 % Lymphocytes % 4 % Neutrophils # (Manual) 14.4 TH/MM3 Nucleated Red Blood Cells 1 /100 WBC Differential Comment FINAL DIFF AUTO DIFF MANUAL CONFIRMED Toxic Vacuolation PRESENT Platelet Estimate LOW LOW Platelet Morphology Comment NORMAL NORMAL Ovalocytes 1+ Laboratory Tests Test 06/14/16 06/15/16 06/15/16 06/15/16 19:41 03:08 16:20 22:40 Lactic Acid Level 4.3 mmol/L 4.4 mmol/L 3.6 mmol/L Sodium Level 143 MEQ/L Potassium Level 3.2 MEQ/L 3.8 MEQ/L Chloride Level 107 MEQ/L Carbon Dioxide Level 26.8 MEQ/L Anion Gap 9 MEQ/L Blood Urea Nitrogen 17 MG/DL Creatinine 0.88 MG/DL Estimat Glomerular Filtration 81 ML/MIN Rate Random Glucose 105 MG/DL Calcium Level 8.2 MG/DL Phosphorus Level 1.6 MG/DL 1.8 MG/DL Magnesium Level 2.3 MG/DL Total Bilirubin 0.5 MG/DL Aspartate Amino Transf 557 U/L (AST/SGOT) Alanine Aminotransferase 225 U/L (ALT/SGPT) Alkaline Phosphatase 68 U/L Total Creatine Kinase 5472 U/L Creatine Kinase MB 118.0 NG/ML Creatine Kinase MB % 2.2 % Total Protein 6.1 GM/DL Albumin 1.9 GM/DL Test 06/16/16 06/16/16 06:04 12:45 Sodium Level 144 MEQ/L Potassium Level 3.5 MEQ/L Chloride Level 108 MEQ/L Carbon Dioxide Level 25.7 MEQ/L Anion Gap 10 MEQ/L Blood Urea Nitrogen 12 MG/DL Creatinine 0.79 MG/DL Estimat Glomerular Filtration 91 ML/MIN Rate Random Glucose 111 MG/DL Calcium Level 8.3 MG/DL Phosphorus Level 2.0 MG/DL Magnesium Level 2.3 MG/DL Total Bilirubin 0.3 MG/DL Aspartate Amino Transf 575 U/L (AST/SGOT) Alanine Aminotransferase 249 U/L (ALT/SGPT) Alkaline Phosphatase 81 U/L Total Creatine Kinase 5315 U/L Creatine Kinase MB 125.8 NG/ML Creatine Kinase MB % 2.4 % Total Protein 6.1 GM/DL Albumin 1.7 GM/DL Lactic Acid Level 4.5 mmol/L Microbiology Date/Time Procedure Status Source Growth 06/15/16 12:30 Gram Stain - Final Resulted Sputum Endotracheal 06/15/16 12:30 Sputum Culture - Preliminary Resulted Staphylococcus Aureus 06/15/16 12:40 Urine Culture - Preliminary Resulted Urine Catheterized Urine Gram Negative [facility] Last Impressions Chest X-Ray 06/16/16 0000 Signed Impressions: Service Date/Time: Thursday, June 16, 2016 04:51 - CONCLUSION: Right basilar density likely atelectasis.. Chadd Kahn MD Abdomen X-Ray 06/16/16 0000 Signed Impressions: Service Date/Time: Thursday, June 16, 2016 17:15 - CONCLUSION: 1. Nonspecific bowel gas pattern which may represent a mild ileus or gastroenteritis. Rico Pedraza MD Brain MRI 06/15/16 0000 Signed Impressions: Service Date/Time: Wednesday, June 15, 2016 09:10 - CONCLUSION: No acute abnormality seen. 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 Reginaldo Cain MD Head Magnetic Resonance Angiography 06/14/16 0000 Signed Impressions: Service Date/Time: Tuesday, June 14, 2016 18:23 - CONCLUSION: No evidence of vessel truncation or aneurysm. Simone Graham MD Liver Ultrasound 06/13/16 0000 Signed Impressions: Service Date/Time: Monday, June 13, 2016 09:42 - CONCLUSION: 1. Small amount free fluid identified medial to the lower pole of the right kidney. 2. Slight increased hepatic echotexture suggesting some degree of fatty infiltration. 3. Please note the body and tail of the pancreas are obscured by overlying bowel gas. The head neck and uncinate process are sonographically intact. Mauro Leslie MD Head CT 06/12/[id number] Signed Impressions: Service Date/Time: May 21:37 - CONCLUSION: Unremarkable study. Jose Martinez MD Renal Ultrasound 06/12/16 Signed Impressions: Service Date/Time: May 23:51 - CONCLUSION: 1. Mild pelvocaliectasis on the right. No hydronephrosis involving either kidney. Simone Woody Jr., MD Chest CT 06/12/16 Signed Impressions: Service Date/Time: May 21:39 - CONCLUSION: Right upper lobe parenchymal process may represent pneumonia, however follow up is suggested with repeat noncontrast chest CT in 2-4 weeksafter appropriate clinical therapy. Jose Martinez MD Abdomen/Pelvis CT 06/12/16 Signed Impressions: Service Date/Time: May 21:39 - CONCLUSION: Essentially unremarkable study. Jose Martinez MD Physical Exam GENERAL: Unresponsive on the vent, NAD SKIN: No jaundice, rashes, or lesions. Cool and dry HEAD: Atraumatic. Normocephalic. EYES: Pupils equal and round and reactive. No scleral icterus. No injection or drainage. ENT: Nose without bleeding or purulent drainage. Orally intubated NECK: Trachea midline. Supple, nontender. CARDIOVASCULAR: Regular rate and rhythm without murmurs, gallops, or rubs. No JVD. Peripheral pulses symmetric. RESPIRATORY/CHEST: Bilateral coarse rhonchi GASTROINTESTINAL: Abdomen soft, no reaction to palpation, not distended. No guarding. Bowel sounds present. GENITOURINARY: Cortes catheter in place with cloudy yellow urine MUSCULOSKELETAL: Extremities without clubbing, cyanosis, + small amount of edema. No mottling or clubbing. NEUROLOGICAL: opens eyes, not following commands PSYCHIATRIC: unable to assess LINE no evidence of infection : Cortes in place urine looks clear Assessment & Plan Remarks Sepsis (fever, hypoxi, leukocytosis, lactic acidosis, multi organ function) - ? source not clear, has E coli in UC but her UA is unremarkable - CT with RUL infiltrate, ?PNA Lymphocytic pleocytosis in CSF - C/S negative ARF/CKD, creatinine now normal Respiratory failure Leukocytosis, Worsening lactic acidosis ? ischemic bowel PLAN cont Zosyn cont zyvox for MRSA coverge patient untioll susceptibilities are available - follow CBC Repeat UA and C/S CT A/P D/W Briseida Kong MD Jun 16, 2016 18:53
[2016-06-16] MEDS: FAMOTIDINE 20 MG/2 ML VIAL IV PUSH SCH (20:34)
[2016-06-16 21:36] LABS: FERRITIN 1180 NG/ML (8-252); TRANSFERRIN IRON PROFILE 81 MG/DL (200-360)
[2016-06-16] MEDS ORDERED: DIATRIZOATE MEGLUM/DIATRIZOATE SOD 9 ML CUP PO ONE (22:00)
[2016-06-16] MEDS ORDERED: METOCLOPRAMIDE HCL 10 MG/2 ML VIAL IV PUSH SCH (22:00)
[2016-06-17] VITALS (20 sets, daily range): BP systolic 101–112; BP diastolic 61–69; PULSE 90–110; RESP 16–27; TEMP 99.8–100.4; O2SAT 90–100
[2016-06-17] MEDS: INSULIN NovoLIN REGULAR SUPPLEMENTAL SCALE SQ SCH ×4 (03:00→21:00)
[2016-06-17] MEDS ORDERED: IOHEXOL 350 MG/ML 10 ML VIAL (for RAD DIAG) IV ONE (04:14)
--- NOTE | 2016-06-17 04:26 | RADRPT ---
EXAM DATE/TIME: 06/17/2016 04:12 [facility] COMPARISON: CT ABDOMEN & PELVIS W/O CONTRAST, June 12, 2016, 21:39. INDICATIONS : Distention. IV CONTRAST: 96 cc Omnipaque 350 (iohexol) IV ORAL CONTRAST: Prescribed oral contrast ingested. RADIATION DOSE: 27.95 CTDIvol (mGy) MEDICAL HISTORY : CVA. SURGICAL HISTORY : Hysterectomy. ENCOUNTER: Subsequent ACUITY: 4 - 6 days PAIN SCALE: Non-responsive LOCATION: Bilateral abdomen TECHNIQUE: Volumetric scanning of the abdomen and pelvis was performed. Using automated exposure control and ad justment of the mA and/or kV according to patient size, radiation dose was kept as low as reasonably achievable to obtain optimal diagnostic quality images. FINDINGS: LOWER LUNGS: Moderate bibasilar atelectasis. LIVER: Homogeneous density without lesion. There is no dilation of the biliary tree. No calcified gallston es. SPLEEN: Normal size without lesion. PANCREAS: Within normal limits. KIDNEYS: Normal in size and shape. There is no mass, stone or hydronephrosis. ADRENAL GLANDS: Within normal limits. VASCULAR: There is no aortic aneurysm. BOWEL/MESENTERY: There is an NG tube in the stomach. There is some mild limitation of the small bowel loops. There is some [id number] distention of the colon with fluid and air. This can be traced down to the rect um suggestive of an ileus. There is a trace of fluid in the right paracolic gutter. No free air is de monstrated. There is stool in the colon. ABDOMINAL WALL: Within normal limits. RETROPERITONEUM: There is no lymphadenopathy. BLADDER: Cortes catheter in the urinary bladder which is decompressed. REPRODUCTIVE: Within normal limits. INGUINAL: There is no lymphadenopathy or hernia. MUSCULOSKELETAL: Within normal limits for patient age. Degenerative changes which are stable. CONCLUSION: 1. New bibasilar atelectasis. 2. There is some mild dilatation of the small bowel. There is a mild to moderate distention of the co armando down to the rectum suggestive of a diffuse adynamic ileus. No definite mechanical obstruction is seen. 3. Otherwise, no other significant changes compared to the prior study. Andi Luna MD on June 17, 2016 at 4:20 Board Certified Radiologist. This report was verified electronically.
[2016-06-17] MEDS: PIPERACIL-TAZO 4.5 GM PREMIX 100 ML IV SCH ×4 (06:18→20:55)
[2016-06-17 07:08] LABS: AUTOMATED NEUTROPHIL # 5.6 TH/MM3 (1.8-7.7); BASOPHIL % 0.1 % (0.0-2.0); EOSINOPHIL % 0.1 % (0.0-4.0); LYMPH % 9.5 % (9.0-44.0); LYMPHOCYTE # 0.6 TH/MM3 (1.0-4.8); MEAN CORPUSCULAR HEMOGLOBIN 26.8 PG (27.0-34.0); MEAN CORPUSCULAR HGB CONC 33.5 % (32.0-36.0); MONO % 2.4 % (0.0-8.0); NEUT % 87.9 % (16.0-70.0); PLATELET COUNT 66 TH/MM3 (150-450); RED BLOOD COUNT 3.12 MIL/MM3 (4.00-5.30); RED CELL DISTRIBUTION WIDTH 16.2 % (11.6-17.2); WHITE BLOOD COUNT 6.4 TH/MM3 (4.0-11.0)
[2016-06-17 07:12] LABS: HEMO FLAGS AUTO DIFF
[2016-06-17 07:35] LABS: ALT (GPT) 250 U/L (10-53); ANION GAP 11 MEQ/L (5-15); AST (GOT) 488 U/L (15-37); BICARBONATE 23.9 MEQ/L (21.0-32.0); BLOOD UREA NITROGEN 9 MG/DL (7-18); CHLORIDE 108 MEQ/L (98-107); GLOMERULAR FILTRATION RATE 93 ML/MIN (>89); POTASSIUM 3.2 MEQ/L (3.5-5.1); SODIUM (NA) 143 MEQ/L (136-145)
[2016-06-17 07:37] LABS: ALKALINE PHOSPHATASE 92 U/L (45-117); TOTAL BILIRUBIN ADULT 0.3 MG/DL (0.2-1.0)
[2016-06-17 08:00] LABS: PLATELET ESTIMATE SMEAR LOW (NORMAL); PLATELET MORPHOLOGY NORMAL (NORMAL); SCAN/DIFF AUTO DIFF CONFIRMED
--- NOTE | 2016-06-17 08:05 | HHI.CCPN ---
Subjective Remarks/Hospital Course 56-year-old female brought in by EMS emergently as altered mental status, hypoxia and temperature 104. Patient has a history of CVA many years ago. Per caregiver she didn't feel well since yesterday and wasn't taking any of medications including baclofen. Patient was unable to communicate due to her altered mental status. As per EMS not much history was available from the family but she has history of CVA as baseline but communicates. In the emergency department patient's oxygen saturation was low 70s upon EMS arrival. They had her on oxygen via nonrebreather and sats of 93%. GCS was 6 and she was intubated by ER attending for an airway protection. 06/13 Patient is sedated with Versed and on Bicarb drip. Renal function is improving with Cr: 2.12 from 3.19 UO: 1350ml since yesterday. Afebrile. 06/14 Patient remains sedated and intubated. Afebrile. Renal function continue to improve with Cr: 1.18 today from 1.53. 06/15 No acute events overnight. Off sedation remains intubated. Patient tolerated CPAP all day yesterday. MRA brain last night is unremarkable. T:99.9 06/16 Patient remains intubated off sedation. Afebrile. Tolerated CPAP all day yesterday remains encephalopathic. 06/17 No acute events overnight. Patient is able to open her eyes but does not follow commands. T: 100.1 last night. Objective Vital Signs Date Time Temp Pulse Resp B/P Pulse Ox O2 Delivery O2 Flow Rate FiO2 06/17/16 06:00 93 06/17/16 04:27 100 35 06/17/16 04:00 99.8 16 104/64 Intake and Output 06/16/16 06/16/16 06/17/16 08:00 16:00 00:00 Intake Total 1107 ml 1463 ml 532 ml Output Total 400 ml 525 ml 550 ml Balance 707 ml 938 ml -18 ml Result Diagram: 06/17/16 0635 06/17/16 06 Other Results Laboratory Tests Test 06/16/16 06/16/16 06/16/16 06/17/16 12:45 18:00 21:24 06:35 Lactic Acid Level 4.5 mmol/L 4.4 mmol/L Phosphorus Level 3.0 MG/DL Iron Level 63 MCG/DL Total Iron Binding Capacity 113 MCG/DL Percent Iron Saturation 55.6 % Ferritin 1180 NG/ML Tumor Marker Alpha Fetoprotein 4.0 NG/ML White Blood Count 6.4 TH/MM3 Red Blood Count 3.12 MIL/MM3 Hemoglobin 8.4 GM/DL Hematocrit 25.0 % Mean Corpuscular Volume 80.0 FL Mean Corpuscular Hemoglobin 26.8 PG Mean Corpuscular Hemoglobin 33.5 % Concent Red Cell Distribution Width 16.2 % Platelet Count 66 TH/MM3 Mean Platelet Volume 10.3 FL Neutrophils (%) (Auto) 87.9 % Lymphocytes (%) (Auto) 9.5 % Monocytes (%) (Auto) 2.4 % Eosinophils (%) (Auto) 0.1 % Basophils (%) (Auto) 0.1 % Neutrophils # (Auto) 5.6 TH/MM3 Lymphocytes # (Auto) 0.6 TH/MM3 Monocytes # (Auto) 0.2 TH/MM3 Eosinophils # (Auto) 0.0 TH/MM3 Basophils # (Auto) 0.0 TH/MM3 CBC Comment AUTO DIFF Sodium Level 143 MEQ/L Potassium Level 3.2 MEQ/L Chloride Level 108 MEQ/L Carbon Dioxide Level 23.9 MEQ/L Anion Gap 11 MEQ/L Blood Urea Nitrogen 9 MG/DL Creatinine 0.78 MG/DL Estimat Glomerular Filtration 93 ML/MIN Rate Random Glucose 99 MG/DL Calcium Level 8.0 MG/DL Total Bilirubin 0.3 MG/DL Aspartate Amino Transf 488 U/L (AST/SGOT) Alanine Aminotransferase 250 U/L (ALT/SGPT) Alkaline Phosphatase 92 U/L Total Protein 5.7 GM/DL Albumin 1.5 GM/DL Imaging Last Impressions Abdomen/Pelvis CT 06/17/16 0000 Signed Impressions: Service Date/Time: Friday, June 17, 2016 04:12 - CONCLUSION: 1. New bibasilar atelectasis. 2. There is some mild dilatation of the small bowel. There is a mild to moderate distention of the colon down to the rectum suggestive of a diffuse adynamic ileus. No definite mechanical obstruction is seen. 3. Otherwise, no other significant changes compared to the prior study. Andi Luna MD Chest X-Ray 06/16/16 0000 Signed Impressions: Service Date/Time: Thursday, June 16, 2016 04:51 - CONCLUSION: Right basilar density likely atelectasis.. Chadd Kahn MD Abdomen X-Ray 06/16/16 0000 Signed Impressions: Service Date/Time: Thursday, June 16, 2016 17:15 - CONCLUSION: 1. Nonspecific bowel gas pattern which may represent a mild ileus or gastroenteritis. Rico Pedraza MD Brain MRI 06/15/16 0000 Signed Impressions: Service Date/Time: Wednesday, June 15, 2016 09:10 - CONCLUSION: No acute abnormality seen. 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 Reginaldo Cain MD Head Magnetic Resonance Angiography 06/14/16 0000 Signed Impressions: Service Date/Time: Tuesday, June 14, 2016 18:23 - CONCLUSION: No evidence of vessel truncation or aneurysm. Simone Graham MD Liver Ultrasound 06/13/16 0000 Signed Impressions: Service Date/Time: Monday, June 13, 2016 09:42 - CONCLUSION: 1. Small amount free fluid identified medial to the lower pole of the right kidney. 2. Slight increased hepatic echotexture suggesting some degree of fatty infiltration. 3. Please note the body and tail of the pancreas are obscured by overlying bowel gas. The head neck and uncinate process are sonographically intact. Mauro Leslie MD Head CT 06/12/[id number] Signed Impressions: Service Date/Time: May 21:37 - CONCLUSION: Unremarkable study. Jose Martinez MD Renal Ultrasound 06/12/16 Signed Impressions: Service Date/Time: May 23:51 - CONCLUSION: 1. Mild pelvocaliectasis on the right. No hydronephrosis involving either kidney. Simone Woody Jr., MD Chest CT 06/12/16 0000 Signed Impressions: Service Date/Time: May 21:39 - CONCLUSION: Right upper lobe parenchymal process may represent pneumonia, however follow up is suggested with repeat noncontrast chest CT in 2-4 weeksafter appropriate clinical therapy. Jose Martinez MD Objective Remarks GENERAL: Elderly woman sedated and intubated SKIN: Warm and dry. HEAD: Normocephalic. EYES: No scleral icterus. No injection or drainage. NECK: Supple, trachea midline. No JVD or lymphadenopathy. CARDIOVASCULAR: Regular rate and rhythm without murmurs, gallops, or rubs. RESPIRATORY: Breath sounds equal bilaterally. No accessory muscle use. GASTROINTESTINAL: Abdomen soft, non-tender, nondistended. MUSCULOSKELETAL: No cyanosis, or edema. BACK: Nontender without obvious deformity. No CVA tenderness. EXTREMITIES: No clubbing cyanosis or edema A/P Assessment and Plan VDRF Encephalopathy SIRS/sepsis Acute kidney injury..improving Rhabdo Hypernatremia Hypokalemia Anemia Lactic acidemia Leukocytosis- resolved Elevated LFT UTI Plan Neuro: Off sedation. Monitor neuro status and avoid sedatives. Ammonia level: 40, TSH 2.5. Continue with Lactulose. CT brain: No acute findings. UDS+ +Benzos MRA brain 06/14- Unremarkable. s/p LP showed clear CSF and 15 WBC. EEG: Bihemispheric slowing, small sharp waves b/l neuro is following- Dr. Boggs, On Keppra 500mg Q12 Pulm: Continue with vent support keep sat >92% Bronchodilators, ICU vent bundle. SBT trials as cherie CV: Monitor HR and BP keep MAP>65mmHg. Lactic acid trending down. : Monitor renal function, I/O's, avoid nephrotoxins. Electrolytes replacement per protocol. Renal US: No hydronephrosis. Renal is following- Dr. Corral IVF D5NS@100ml/hr monitor Sodium level and CK's. Will need K replacement GI: On Pepcid 20meq IV qhs, tube feeds on hold (Glucerna 1.5 with goal rate 45ml /hr) Monitor LFT's ( trending down), US liver: Fatty liver, GI is following. CT abdomen/pelvis last night- findings suggestive of adynamic ileus. No mechanical obstruction. On Reglan 5mg Iv q8 PRN, Miralax, Lactulose ID: Continue abx per ID (Zyvox,Zosyn)monitor for signs of infections ( Fever, WBC) Patient was given Vanco, Zosyn, Zithromax in ED. 06/12 Urine cx: E.coli 06/12 BC: No growth 06/12 CSG: NGTD 06/15 urine: GNR, sputum: Staph Aureus Heme: Monitor CBC, coags, Hep plt ab negative. Thrombocytopenia likely 2nd sepsis Endo: SSI for glycemic control, TSH level: 2.5 GI Prophylaxis with Pepcid DVT prophylaxis with SCD, not on AC prophylaxis 2nd to thrombocytopenia Level 3 Jose Smith MD Jun 17, 2016 08:05
[2016-06-17] MEDS: POTASSIUM CHLOR 40 MEQ PREMIX 100 ML IV PRN ×2 (09:08→20:59)
[2016-06-17] MEDS: POLYETHYLENE GLYCOL 17 GM PKG PO SCH (09:09)
[2016-06-17] MEDS: levETIRAcetam INJ 500 MG in SODIUM CHLORIDE 0.9% INJ 100 ML IV SCH ×2 (09:10→20:55)
[2016-06-17] MEDS: PREGABALIN 75 MG CAP PO SCH ×2 (09:10→20:57)
[2016-06-17] MEDS: SODIUM CHLORIDE 0.9% FLUSH 10 ML FLUSH IV FLUSH SCH ×2 (09:10→20:57)
[2016-06-17] MEDS: LACTULOSE SYRUP 20 GM/30 ML CUP PO SCH ×2 (09:10→20:57)
[2016-06-17] MEDS: BACLOFEN 10 MG TAB PO SCH ×3 (09:10→17:24)
[2016-06-17] MEDS: CHLORHEXIDINE 0.12% (ORAL KIT) 15 ML CUP MT SCH ×2 (09:26→21:03)
[2016-06-17 09:28] LABS: CKMB 102.1 NG/ML (0.5-3.6)
[2016-06-17] MEDS: DEXT 5%-NACL 0.9% 1000 ML INJ 1,000 ML IV SCH ×2 (11:27→22:41)
[2016-06-17] MEDS: LINEZOLID 600 MG PREMIX 300 ML IV SCH ×2 (11:28→20:55)
--- NOTE | 2016-06-17 17:25 | HHI.IDPN ---
Subjective Subjective Remarks + low grade fever CT with ileus TF are off + liquid diarrhea tolearting CPAP Antibiotics Zosyn zyvox Past Medical History Reviewed Allergies: Coded Allergies: DO NOT USE (Verified Allergy, Mild, Hallucinations, 06/12/16) Objective . Vital Signs Date Time Temp Pulse Resp B/P Pulse Ox O2 Delivery O2 Flow Rate FiO2 06/17/16 16:09 98 35 06/17/16 16:00 108 06/17/16 16:00 100.4 104 17 106/66 90 06/17/16 16:00 35 06/17/16 14:00 105 06/17/16 13:54 90 35 06/17/16 12:27 93 35 06/17/16 12:00 35 06/17/16 12:00 100.0 108 27 112/69 96 06/17/16 12:00 110 06/17/16 10:00 106 06/17/16 08:20 100 35 06/17/16 08:00 104 06/17/16 08:00 35 06/17/16 08:00 100.0 104 16 111/66 99 06/17/16 06:00 93 06/17/16 04:27 100 35 06/17/16 04:00 99.8 90 16 104/64 96 06/17/16 04:00 100 100 06/17/16 04:00 98 06/17/16 04:00 35 06/17/16 02:00 99 06/17/16 00:02 98 35 06/17/16 00:00 100.1 90 16 101/61 99 06/17/16 00:00 35 06/17/16 00:00 99 06/16/16 22:00 90 06/16/16 20:00 35 06/16/16 20:00 90 06/16/16 20:00 100.1 90 16 105/62 99 06/16/16 19:50 100 35 06/16/16 18:00 92 06/16/16 06/16/16 06/17/16 15:00 23:00 07:00 Intake Total 1463 ml 532 ml 568 ml Output Total 525 ml 550 ml 600 ml Balance 938 ml -18 ml -32 ml Intake IV Total 1463 ml 472 ml 508 ml Tube Feeding 0 ml Other 60 ml 60 ml Output Urine Total 525 ml 350 ml 600 ml Gastric Drainage Total 200 ml 0 ml # Bowel Movements 0 0 . Laboratory Tests Test 06/16/16 06/17/16 06:04 06:35 White Blood Count 11.0 TH/MM3 6.4 TH/MM3 Red Blood Count 3.42 MIL/MM3 3.12 MIL/MM3 Hemoglobin 8.9 GM/DL 8.4 GM/DL Hematocrit 27.2 % 25.0 % Mean Corpuscular Volume 79.6 FL 80.0 FL Mean Corpuscular Hemoglobin 26.0 PG 26.8 PG Mean Corpuscular Hemoglobin 32.7 % 33.5 % Concent Red Cell Distribution Width 16.3 % 16.2 % Platelet Count 63 TH/MM3 66 TH/MM3 Mean Platelet Volume 9.8 FL 10.3 FL Neutrophils (%) (Auto) 93.4 % 87.9 % Lymphocytes (%) (Auto) 5.1 % 9.5 % Monocytes (%) (Auto) 1.4 % 2.4 % Eosinophils (%) (Auto) 0.0 % 0.1 % Basophils (%) (Auto) 0.1 % 0.1 % Neutrophils # (Auto) 10.3 TH/MM3 5.6 TH/MM3 Lymphocytes # (Auto) 0.6 TH/MM3 0.6 TH/MM3 Monocytes # (Auto) 0.2 TH/MM3 0.2 TH/MM3 Eosinophils # (Auto) 0.0 TH/MM3 0.0 TH/MM3 Basophils # (Auto) 0.0 TH/MM3 0.0 TH/MM3 CBC Comment AUTO DIFF AUTO DIFF Differential Comment AUTO DIFF AUTO DIFF CONFIRMED CONFIRMED Platelet Estimate LOW LOW Platelet Morphology Comment NORMAL NORMAL Laboratory Tests Test 06/15/16 06/16/16 06/16/16 06/16/16 22:40 06:04 12:45 18:00 Potassium Level 3.8 MEQ/L 3.5 MEQ/L Phosphorus Level 1.8 MG/DL 2.0 MG/DL 3.0 MG/DL Sodium Level 144 MEQ/L Chloride Level 108 MEQ/L Carbon Dioxide Level 25.7 MEQ/L Anion Gap 10 MEQ/L Blood Urea Nitrogen 12 MG/DL Creatinine 0.79 MG/DL Estimat Glomerular Filtration 91 ML/MIN Rate Random Glucose 111 MG/DL Calcium Level 8.3 MG/DL Magnesium Level 2.3 MG/DL Total Bilirubin 0.3 MG/DL Aspartate Amino Transf 575 U/L (AST/SGOT) Alanine Aminotransferase 249 U/L (ALT/SGPT) Alkaline Phosphatase 81 U/L Total Creatine Kinase 5315 U/L Creatine Kinase MB 125.8 NG/ML Creatine Kinase MB % 2.4 % Total Protein 6.1 GM/DL Albumin 1.7 GM/DL Lactic Acid Level 4.5 mmol/L Iron Level 63 MCG/DL Total Iron Binding Capacity 113 MCG/DL Percent Iron Saturation 55.6 % Ferritin 1180 NG/ML Test 06/16/16 06/17/16 06/17/16 21:24 06:35 08:20 Lactic Acid Level 4.4 mmol/L 4.5 mmol/L Tumor Marker Alpha Fetoprotein 4.0 NG/ML Sodium Level 143 MEQ/L Potassium Level 3.2 MEQ/L Chloride Level 108 MEQ/L Carbon Dioxide Level 23.9 MEQ/L Anion Gap 11 MEQ/L Blood Urea Nitrogen 9 MG/DL Creatinine 0.78 MG/DL Estimat Glomerular Filtration 93 ML/MIN Rate Random Glucose 99 MG/DL Calcium Level 8.0 MG/DL Total Bilirubin 0.3 MG/DL Aspartate Amino Transf 488 U/L (AST/SGOT) Alanine Aminotransferase 250 U/L (ALT/SGPT) Alkaline Phosphatase 92 U/L Total Protein 5.7 GM/DL Albumin 1.5 GM/DL Total Creatine Kinase 4356 U/L Creatine Kinase MB 102.1 NG/ML Creatine Kinase MB % 2.3 % Microbiology Date/Time Procedure Status Source Growth 06/15/16 12:30 Gram Stain - Final Resulted Sputum Endotracheal 06/15/16 12:30 Sputum Culture - Preliminary Resulted Staphylococcus Aureus 06/15/16 12:40 Urine Culture - Final Complete Urine Catheterized Urine Escherichia Coli Imaging Last Impressions Abdomen/Pelvis CT 06/17/16 0000 Signed Impressions: Service Date/Time: Friday, June 17, 2016 04:12 - CONCLUSION: 1. New bibasilar atelectasis. 2. There is some mild dilatation of the small bowel. There is a mild to moderate distention of the colon down to the rectum suggestive of a diffuse adynamic ileus. No definite mechanical obstruction is seen. 3. Otherwise, no other significant changes compared to the prior study. Andi Luna MD Chest X-Ray 06/16/16 0000 Signed Impressions: Service Date/Time: Thursday, June 16, 2016 04:51 - CONCLUSION: Right basilar density likely atelectasis.. Chadd Kahn MD Abdomen X-Ray 06/16/16 0000 Signed Impressions: Service Date/Time: Thursday, June 16, 2016 17:15 - CONCLUSION: 1. Nonspecific bowel gas pattern which may represent a mild ileus or gastroenteritis. Rico Pedraza MD Brain MRI 06/15/16 0000 Signed Impressions: Service Date/Time: Wednesday, June 15, 2016 09:10 - CONCLUSION: No acute abnormality seen. 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 Reginaldo Cain MD Head Magnetic Resonance Angiography 06/14/16 0000 Signed Impressions: Service Date/Time: Tuesday, June 14, 2016 18:23 - CONCLUSION: No evidence of vessel truncation or aneurysm. Simone Graham MD Liver Ultrasound 06/13/16 0000 Signed Impressions: Service Date/Time: Monday, June 13, 2016 09:42 - CONCLUSION: 1. Small amount free fluid identified medial to the lower pole of the right kidney. 2. Slight increased hepatic echotexture suggesting some degree of fatty infiltration. 3. Please note the body and tail of the pancreas are obscured by overlying bowel gas. The head neck and uncinate process are sonographically intact. Mauro Leslie MD Head CT [id number]/12/[id number] Signed Impressions: Service Date/Time: May 21:37 - CONCLUSION: Unremarkable study. Jose Martinez MD Renal Ultrasound 06/12/16 Signed Impressions: Service Date/Time: May 23:51 - CONCLUSION: 1. Mild pelvocaliectasis on the right. No hydronephrosis involving either kidney. Simone Woody Jr., MD Chest CT 06/12/16 Signed Impressions: Service Date/Time: May 21:39 - CONCLUSION: Right upper lobe parenchymal process may represent pneumonia, however follow up is suggested with repeat noncontrast chest CT in 2-4 weeksafter appropriate clinical therapy. Jose Martinez MD Physical Exam GENERAL: on the vent, NAD SKIN: No jaundice, rashes, or lesions. Cool and dry HEAD: Atraumatic. Normocephalic. EYES: Pupils equal and round and reactive. No scleral icterus. No injection or drainage. ENT: Nose without bleeding or purulent drainage. Orally intubated NECK: Trachea midline. Supple, nontender. CARDIOVASCULAR: Regular rate and rhythm without murmurs, gallops, or rubs. No JVD. Peripheral pulses symmetric. RESPIRATORY/CHEST: Bilateral diffuse coarse rhonchi GASTROINTESTINAL: Abdomen soft, no reaction to palpation, minimally distended. No guarding. Bowel sounds present. GENITOURINARY: Cortes catheter in place with clear yellow urine MUSCULOSKELETAL: Extremities without clubbing, cyanosis, + small amount of edema. No mottling or clubbing. NEUROLOGICAL: opens eyes, not following commands PSYCHIATRIC: unable to assess LINE no evidence of infection : Cortes in place urine looks clear Assessment & Plan Remarks Sepsis (fever, hypoxi, leukocytosis, lactic acidosis, multi organ function) - ? source not clear, has E coli in UC but her UA is unremarkable - CT with RUL infiltrate, ?PNA - growing Staph aureus, no final sensitivity yet Lymphocytic pleocytosis in CSF - C/S negative ARF/CKD, creatinine now normal Respiratory failure Leukocytosis, Worsening lactic acidosis ? ischemic bowel Diarrhea, ro C.diff PLAN cont Zosyn cont zyvox for MRSA coverge patient untioll susceptibilities are available - follow CBC chk stool for C.diff D/W Briseida Kong MD Jun 17, 2016 17:25
[2016-06-17 19:53] LABS: VDRL CSF NON-REACTIVE (())
[2016-06-17] MEDS: FAMOTIDINE 20 MG/2 ML VIAL IV PUSH SCH (20:57)
--- NOTE | 2016-06-17 21:05 | HHI.GIFU ---
Subjective Remarks Intubated sedated Objective Vitals I&O Vital Signs Date Time Temp Pulse Resp B/P Pulse Ox O2 Delivery O2 Flow Rate FiO2 06/17/16 20:00 106 06/17/16 20:00 100.4 106 16 106/62 99 06/17/16 20:00 35 06/17/16 19:57 98 35 06/17/16 18:00 108 06/17/16 16:09 98 35 06/17/16 16:00 108 06/17/16 16:00 100.4 104 17 106/66 90 06/17/16 16:00 35 06/17/16 14:00 105 06/17/16 13:54 90 35 06/17/16 12:27 93 35 06/17/16 12:00 35 06/17/16 12:00 100.0 108 27 112/69 96 06/17/16 12:00 110 06/17/16 10:00 106 06/17/16 08:20 100 35 06/17/16 08:00 104 06/17/16 08:00 35 06/17/16 08:00 100.0 104 16 111/66 99 06/17/16 06:00 93 06/17/16 04:27 100 35 06/17/16 04:00 99.8 90 16 104/64 96 06/17/16 04:00 100 100 06/17/16 04:00 98 06/17/16 04:00 35 06/17/16 02:00 99 06/17/16 00:02 98 35 06/17/16 00:00 100.1 90 16 101/61 99 06/17/16 00:00 35 06/17/16 00:00 99 06/16/16 22:00 90 I/O 06/16/16 06/16/16 06/16/16 06/17/16 06/17/16 06/17/16 07:00 15:00 23:00 07:00 15:00 23:00 Intake Total 1107 ml 1463 ml 532 ml 568 ml 1169 ml Output Total 400 ml 525 ml 550 ml 600 ml 1000 ml Balance 707 ml 938 ml -18 ml -32 ml 169 ml Intake IV Total 1047 ml 1463 ml 472 ml 508 ml 1109 ml Tube Feeding 0 ml Other 60 ml 60 ml 60 ml 60 ml Output Urine Total 400 ml 525 ml 350 ml 600 ml 1000 ml Gastric Drainage Total 200 ml 0 ml 0 ml # Bowel Movements 0 0 0 3 Laboratory Laboratory Tests Test 06/16/16 06/17/16 06/17/16 06/17/16 21:24 06:35 08:20 17:40 Lactic Acid Level 4.4 4.5 Tumor Marker Alpha Fetoprotein 4.0 White Blood Count 6.4 Red Blood Count 3.12 Hemoglobin 8.4 Hematocrit 25.0 Mean Corpuscular Volume 80.0 Mean Corpuscular Hemoglobin 26.8 Mean Corpuscular Hemoglobin 33.5 Concent Red Cell Distribution Width 16.2 Platelet Count 66 Mean Platelet Volume 10.3 Neutrophils (%) (Auto) 87.9 Lymphocytes (%) (Auto) 9.5 Monocytes (%) (Auto) 2.4 Eosinophils (%) (Auto) 0.1 Basophils (%) (Auto) 0.1 Neutrophils # (Auto) 5.6 Lymphocytes # (Auto) 0.6 Monocytes # (Auto) 0.2 Eosinophils # (Auto) 0.0 Basophils # (Auto) 0.0 CBC Comment AUTO DIFF Differential Comment AUTO DIFF CONFIRMED Platelet Estimate LOW Platelet Morphology Comment NORMAL Sodium Level 143 Potassium Level 3.2 3.5 Chloride Level 108 Carbon Dioxide Level 23.9 Anion Gap 11 Blood Urea Nitrogen 9 Creatinine 0.78 Estimat Glomerular Filtration 93 Rate Random Glucose 99 Calcium Level 8.0 Total Bilirubin 0.3 Aspartate Amino Transf 488 (AST/SGOT) Alanine Aminotransferase 250 (ALT/SGPT) Alkaline Phosphatase 92 Total Protein 5.7 Albumin 1.5 Total Creatine Kinase 4356 Creatine Kinase MB 102.1 Creatine Kinase MB % 2.3 Date/Time Procedure Status Source Growth 06/15/16 12:40 Urine Culture - Final Complete Urine Catheterized Urine Escherichia Coli 06/15/16 12:30 Gram Stain - Final Resulted Sputum Endotracheal 06/15/16 12:30 Sputum Culture - Preliminary Resulted Staphylococcus Aureus Imaging Last Impressions Abdomen/Pelvis CT 06/17/16 0000 Signed Impressions: Service Date/Time: Friday, June 17, 2016 04:12 - CONCLUSION: 1. New bibasilar atelectasis. 2. There is some mild dilatation of the small bowel. There is a mild to moderate distention of the colon down to the rectum suggestive of a diffuse adynamic ileus. No definite mechanical obstruction is seen. 3. Otherwise, no other significant changes compared to the prior study. Andi Luna MD Chest X-Ray 06/16/16 Signed Impressions: Service Date/Time: Thursday, June 16, 2016 04:51 - CONCLUSION: Right basilar density likely atelectasis.. Chadd Kahn MD Abdomen X-Ray 06/16/16 Signed Impressions: Service Date/Time: Thursday, June 16, 2016 17:15 - CONCLUSION: 1. Nonspecific bowel gas pattern which may represent a mild ileus or gastroenteritis. Rico Pedraza MD Brain MRI 06/15/16 Signed Impressions: Service Date/Time: Wednesday, June 15, 2016 09:10 - CONCLUSION: No acute abnormality seen. 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 Reginaldo Cain MD Head Magnetic Resonance Angiography 06/14/16 Signed Impressions: Service Date/Time: Tuesday, June 14, 2016 18:23 - CONCLUSION: No evidence of vessel truncation or aneurysm. Simone Graham MD Liver Ultrasound 06/13/16 Signed Impressions: Service Date/Time: Monday, June 13, 2016 09:42 - CONCLUSION: 1. Small amount free fluid identified medial to the lower pole of the right kidney. 2. Slight increased hepatic echotexture suggesting some degree of fatty infiltration. 3. Please note the body and tail of the pancreas are obscured by overlying bowel gas. The head neck and uncinate process are sonographically intact. Mauro Leslie MD Head CT 06/12/16 1657 Signed Impressions: Service Date/Time: May 21:37 - CONCLUSION: Unremarkable study. Jose Martinez MD Renal Ultrasound 06/12/16 Signed Impressions: Service Date/Time: May 23:51 - CONCLUSION: 1. Mild pelvocaliectasis on the right. No hydronephrosis involving either kidney. Simone Woody Jr., MD Chest CT 06/12/16 Signed Impressions: Service Date/Time: May 21:39 - CONCLUSION: Right upper lobe parenchymal process may represent pneumonia, however follow up is suggested with repeat noncontrast chest CT in 2-4 weeksafter appropriate clinical therapy. Jose Martinez MD Physical Exam HEENT: Normocephalic; no jaundice. Throat is clear and dry. NECK: Neck is supple, no JVD, no lymphadenopathy. CHEST: Chest is clear to auscultation and percussion. CARDIAC: Regular rate and rhythm with no murmur gallop or rubs. ABDOMEN: Soft, nondistended, nontender; no hepatosplenomegaly; bowel sounds are present in all four quadrants. EXTREMITIES: No clubbing, cyanosis, or edema. SKIN: Normal; no rash; no jaundice. Assessment and Plan Plan ASSESSMENT: - Elevated LFTs, unclear etiology. On admission, she was noted to have T. Bili 0.5, AST 234, ALT 115, ALk Phosph 70 and they have gradually been increasing and today she has T. Bili 0.5, AST 557, ALT 225, Alk Phosph 68. It is unclear if she has any history of liver disease or if she ever abused alcohol. Liver Ultrasound (06/13/16)----> 1. Small amount free fluid identified medial to the lower pole of the right kidney. 2. Slight increased hepatic echotexture suggesting some degree of fatty infiltration. 3. Please note the body and tail of the pancreas are obscured by overlying bowel gas. The head neck and uncinate process are sonographically intact. Hepatitis panel negative. She does have sepsis/UTI with GNR/E.Coli and is on both Keppra and Zosyn. We will get liver workup, but this could possibly be related to infection vs. medications. If they continue to rise, would reconsider Keppra and Zosyn. - Abdominal distention, high residuals, n/v. Suspect ileus. Abdomen distended , mildly tympanic. Hypoactive bs. No bm. N/V with TF overnight. Suspect ileus, will get KUB, cont. reglan, miralax, SSE x 2. PLAN: -LFTs are trending down the elevation is multifactorial we will continue to monitor -Ileus appears to be resolving she had bowel movements and her abdomen is soft -Continue Miralax -Continue Reglan - Liver workup so far negative - If her LFTs continue to rise, consider replacing Zosyn/Keppra if possible - Supportive care - FUrther recommendations to follow based on results of above. Chris Jj MD Jun 17, 2016 21:05
[2016-06-17 21:24] LABS: C. DIFF EPI 027 PRESUMPTIVE NEGATIVE (NEGATIVE); C. DIFF TOXIN PCR NEGATIVE (NEGATIVE)
[2016-06-18] VITALS (18 sets, daily range): BP systolic 115–119; BP diastolic 65–74; PULSE 85–108; RESP 16–25; TEMP 99.3–100.4; O2SAT 98–100
[2016-06-18] MEDS: INSULIN NovoLIN REGULAR SUPPLEMENTAL SCALE SQ SCH ×4 (03:00→20:30)
--- NOTE | 2016-06-18 03:51 | RADRPT ---
EXAM DATE/TIME: 06/18/2016 02:40 [facility] COMPARISON: CHEST SINGLE AP, June 16, 2016, 4:51. INDICATIONS : Short of breath. MEDICAL HISTORY : None. SURGICAL HISTORY : None. ENCOUNTER: Subsequent ACUITY: 1 week PAIN SCORE: Non-responsive. LOCATION: Bilateral chest FINDINGS: The support devices remain in place. There is a mild right lower lung infiltrate which is about the s chaparrita compared to the prior study. The left lung is clear. The heart size is within normal limits. Ther e are no pleural effusions. No evidence of pneumothorax. The bony structures are stable. CONCLUSION: Stable mild right lower lung infiltrate. Andi Luna MD on June 18, 2016 at 3:49 Board Certified Radiologist. This report was verified electronically.
[2016-06-18] MEDS: CHLORHEXIDINE GLUCONATE 2 % 1 PACK (2 CLOTHS) TOP SCH (04:00)
[2016-06-18 06:09] LABS: AUTOMATED NEUTROPHIL # 5.1 TH/MM3 (1.8-7.7); BASOPHIL % 0.2 % (0.0-2.0); EOSINOPHIL % 0.2 % (0.0-4.0); HEMATOCRIT 25.2 % (35.0-46.0); LYMPHOCYTE # 0.7 TH/MM3 (1.0-4.8); MEAN CELL VOLUME 80.3 FL (80.0-100.0); MEAN CORPUSCULAR HEMOGLOBIN 26.3 PG (27.0-34.0); MEAN CORPUSCULAR HGB CONC 32.7 % (32.0-36.0); MONO % 2.6 % (0.0-8.0); PLATELET COUNT 76 TH/MM3 (150-450); RED BLOOD COUNT 3.14 MIL/MM3 (4.00-5.30); RED CELL DISTRIBUTION WIDTH 16.2 % (11.6-17.2)
[2016-06-18 06:11] LABS: HEMO FLAGS AUTO DIFF
[2016-06-18] MEDS: PIPERACIL-TAZO 4.5 GM PREMIX 100 ML IV SCH ×4 (07:08→22:07)
[2016-06-18 07:19] LABS: ALKALINE PHOSPHATASE 86 U/L (45-117); ALT (GPT) 258 U/L (10-53); ANION GAP 10 MEQ/L (5-15); AST (GOT) 436 U/L (15-37); BICARBONATE 22.8 MEQ/L (21.0-32.0); BLOOD UREA NITROGEN 8 MG/DL (7-18); CHLORIDE 111 MEQ/L (98-107); CREATINE KINASE 3816 U/L (26-192); GLOMERULAR FILTRATION RATE 107 ML/MIN (>89); MAGNESIUM 1.9 MG/DL (1.5-2.5); POTASSIUM 3.6 MEQ/L (3.5-5.1); SODIUM (NA) 144 MEQ/L (136-145); TOTAL BILIRUBIN ADULT 0.2 MG/DL (0.2-1.0)
[2016-06-18 07:41] LABS: CKMB 81.2 NG/ML (0.5-3.6)
[2016-06-18 07:45] LABS: PLATELET ESTIMATE SMEAR LOW (NORMAL); PLATELET MORPHOLOGY NORMAL (NORMAL); SCAN/DIFF AUTO DIFF CONFIRMED
[2016-06-18] MEDS: PREGABALIN 75 MG CAP PO SCH ×2 (07:58→20:29)
[2016-06-18] MEDS: BACLOFEN 10 MG TAB PO SCH ×3 (07:58→16:45)
[2016-06-18] MEDS: LACTULOSE SYRUP 20 GM/30 ML CUP PO SCH ×2 (07:58→20:29)
[2016-06-18] MEDS: POLYETHYLENE GLYCOL 17 GM PKG PO SCH (07:58)
[2016-06-18] MEDS: levETIRAcetam INJ 500 MG in SODIUM CHLORIDE 0.9% INJ 100 ML IV SCH ×2 (07:59→20:29)
[2016-06-18] MEDS: DEXT 5%-NACL 0.9% 1000 ML INJ 1,000 ML IV SCH ×2 (07:59→16:45)
[2016-06-18] MEDS: CHLORHEXIDINE 0.12% (ORAL KIT) 15 ML CUP MT SCH ×2 (07:59→20:00)
[2016-06-18] MEDS: SODIUM CHLORIDE 0.9% FLUSH 10 ML FLUSH IV FLUSH SCH ×2 (08:00→20:29)
--- NOTE | 2016-06-18 08:47 | HHI.GIFU ---
Subjective Remarks Resting in bed. Sedated on ventilator-CPAP. NGT clamped. Abdomen soft. Flexiseal with liquid stool. (An Sullivan) Objective Vitals I&O Vital Signs Date Time Temp Pulse Resp B/P Pulse Ox O2 Delivery O2 Flow Rate FiO2 06/18/16 08:05 98 35 06/18/16 08:00 102 06/18/16 06:00 103 06/18/16 04:05 100 35 06/18/16 04:00 103 06/18/16 04:00 35 06/18/16 04:00 100.4 102 16 119/74 100 06/18/16 02:00 100 06/18/16 00:00 105 06/18/16 00:00 100.2 106 16 115/71 98 06/18/16 00:00 35 06/17/16 23:52 96 35 06/17/16 22:00 105 06/17/16 20:00 106 06/17/16 20:00 100.4 106 16 106/62 99 06/17/16 20:00 35 06/17/16 19:57 98 35 06/17/16 18:00 108 06/17/16 16:09 98 35 06/17/16 16:00 108 06/17/16 16:00 100.4 104 17 106/66 90 06/17/16 16:00 35 06/17/16 14:00 105 06/17/16 13:54 90 35 06/17/16 12:27 93 35 06/17/16 12:00 35 06/17/16 12:00 100.0 108 27 112/69 96 06/17/16 12:00 110 06/17/16 10:00 106 I/O 06/17/16 06/17/16 06/17/16 06/18/16 06/18/16 06/18/16 07:00 15:00 23:00 07:00 15:00 23:00 Intake Total 568 ml 1169 ml 1109 ml 628 ml Output Total 600 ml 1000 ml 1500 ml 1100 ml Balance -32 ml 169 ml -391 ml -472 ml Intake IV Total 508 ml 1109 ml 989 ml 628 ml Tube Feeding 0 ml Other 60 ml 60 ml 120 ml 0 ml Output Urine Total 600 ml 1000 ml 850 ml 700 ml Stool Total 650 ml 400 ml Gastric Drainage Total 0 ml 0 ml 0 ml 0 ml # Bowel Movements 0 3 Laboratory Laboratory Tests Test 06/17/16 06/17/16 06/18/16 06/18/16 17:40 18:18 03:54 05:54 Potassium Level 3.5 3.6 Stool C. difficile Toxin (PCR) NEGATIVE Stl C. difficile Toxin PRESUMPTIVE Epiderm 027 NEGATIVE Lactic Acid Level 5.0 White Blood Count 6.0 Red Blood Count 3.14 Hemoglobin 8.3 Hematocrit 25.2 Mean Corpuscular Volume 80.3 Mean Corpuscular Hemoglobin 26.3 Mean Corpuscular Hemoglobin 32.7 Concent Red Cell Distribution Width 16.2 Platelet Count 76 Mean Platelet Volume 11.2 Neutrophils (%) (Auto) 86.0 Lymphocytes (%) (Auto) 11.0 Monocytes (%) (Auto) 2.6 Eosinophils (%) (Auto) 0.2 Basophils (%) (Auto) 0.2 Neutrophils # (Auto) 5.1 Lymphocytes # (Auto) 0.7 Monocytes # (Auto) 0.2 Eosinophils # (Auto) 0.0 Basophils # (Auto) 0.0 CBC Comment AUTO DIFF Differential Comment AUTO DIFF CONFIRMED Platelet Estimate LOW Platelet Morphology Comment NORMAL Sodium Level 144 Chloride Level 111 Carbon Dioxide Level 22.8 Anion Gap 10 Blood Urea Nitrogen 8 Creatinine 0.69 Estimat Glomerular Filtration 107 Rate Random Glucose 123 Calcium Level 7.9 Phosphorus Level 1.8 Magnesium Level 1.9 Total Bilirubin 0.2 Aspartate Amino Transf 436 (AST/SGOT) Alanine Aminotransferase 258 (ALT/SGPT) Alkaline Phosphatase 86 Total Creatine Kinase 3816 Creatine Kinase MB 81.2 Creatine Kinase MB % 2.1 Total Protein 5.5 Albumin 1.4 Date/Time Procedure Status Source Growth 06/15/16 12:40 Urine Culture - Final Complete Urine Catheterized Urine Escherichia Coli 06/15/16 12:30 Gram Stain - Final Resulted Sputum Endotracheal 06/15/16 12:30 Sputum Culture - Preliminary Resulted Staphylococcus Aureus Imaging Last Impressions Chest X-Ray 06/18/16 0000 Signed Impressions: Service Date/Time: Saturday, June 18, 2016 02:40 - CONCLUSION: Stable mild right lower lung infiltrate. Andi Luna MD Abdomen/Pelvis CT 06/17/16 0000 Signed Impressions: Service Date/Time: Friday, June 17, 2016 04:12 - CONCLUSION: 1. New bibasilar atelectasis. 2. There is some mild dilatation of the small bowel. There is a mild to moderate distention of the colon down to the rectum suggestive of a diffuse adynamic ileus. No definite mechanical obstruction is seen. 3. Otherwise, no other significant changes compared to the prior study. Andi Luna MD Abdomen X-Ray 06/16/16 Signed Impressions: Service Date/Time: Thursday, June 16, 2016 17:15 - CONCLUSION: 1. Nonspecific bowel gas pattern which may represent a mild ileus or gastroenteritis. Rico Pedraza MD Brain MRI 06/15/16 Signed Impressions: Service Date/Time: Wednesday, June 15, 2016 09:10 - CONCLUSION: No acute abnormality seen. 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 Reginaldo Cain MD Head Magnetic Resonance Angiography 06/14/16 Signed Impressions: Service Date/Time: Tuesday, June 14, 2016 18:23 - CONCLUSION: No evidence of vessel truncation or aneurysm. Simone Graham MD Liver Ultrasound 06/13/16 Signed Impressions: Service Date/Time: Monday, June 13, 2016 09:42 - CONCLUSION: 1. Small amount free fluid identified medial to the lower pole of the right kidney. 2. Slight increased hepatic echotexture suggesting some degree of fatty infiltration. 3. Please note the body and tail of the pancreas are obscured by overlying bowel gas. The head neck and uncinate process are sonographically intact. Mauro Leslie MD Head CT 06/12/16 1657 Signed Impressions: Service Date/Time: May 21:37 - CONCLUSION: Unremarkable study. Jose Martinez MD Renal Ultrasound 06/12/16 Signed Impressions: Service Date/Time: May 23:51 - CONCLUSION: 1. Mild pelvocaliectasis on the right. No hydronephrosis involving either kidney. Simone Woody Jr., MD Chest CT 06/12/16 Signed Impressions: Service Date/Time: May 21:39 - CONCLUSION: Right upper lobe parenchymal process may represent pneumonia, however follow up is suggested with repeat noncontrast chest CT in 2-4 weeksafter appropriate clinical therapy. Jose Martinez MD Physical Exam HEENT: Normocephalic; no jaundice. CHEST: OETT to vent. Course breath sounds. CARDIAC: RRR ABDOMEN: Soft, round, nondistended, nontender; no hepatosplenomegaly; bowel sounds are present in all four quadrants. Flexiseal with liquid stool EXTREMITIES: Generalized edema. Neuro: Sedated on vent. (An Sullivan) Assessment and Plan Plan ASSESSMENT: - Elevated LFTs, unclear etiology. On admission, she was noted to have T. Bili 0.5, AST 234, ALT 115, ALk Phosph 70 and they peaked on 06/16 at T. Bili 0.5, AST 557, ALT 225, Alk Phosph 68. They have since been slowly improving. It is unclear if she has any history of liver disease or if she ever abused alcohol. Liver Ultrasound (06/13/16)----> 1. Small amount free fluid identified medial to the lower pole of the right kidney. 2. Slight increased hepatic echotexture suggesting some degree of fatty infiltration. 3. Please note the body and tail of the pancreas are obscured by overlying bowel gas. The head neck and uncinate process are sonographically intact. Hepatitis panel negative. She does have sepsis/UTI with GNR/E.Coli and is on both Keppra and Zosyn. Liver workup- Hepatitis panel negative, DONNA pending, AMA pending, ASMA pending, AFP 4.0, ceruloplasmin pending, alpha 1 antitrypsin. This most likely is related to infection vs. medications. If they continue to rise, would reconsider Keppra and Zosyn. - Mild ileus. Improved. Will start TF. PLAN: - Okay to start TF - Continue Miralax - Continue Reglan - Liver workup so far negative - If her LFTs continue to rise, consider replacing Zosyn/Keppra if possible- these seem to be slowly trending down at this point - Supportive care - FUrther recommendations to follow based on results of above. (An Sullivan) Physician Comments Patient seen and examined Agree with above Continue with current supportive care Monitor labs (Chris Jj MD) An Sullivan Jun 18, 2016 08:47 Chris Jj MD Jun 18, 2016 21:36
[2016-06-18] MEDS: SODIUM PHOSPHATE INJ 30 MMOL in SODIUM CHLOR 0.9% 250 ML INJ 240 ML IV PRN (09:34)
--- NOTE | 2016-06-18 10:57 | HHI.PR ---
Review/Management Daily Summary 06/15 eeg may be showing paroxysmal discharges i will review eeg, might try anticonvulsants mri negative 06/16 basically unchanged eeg with some epileptiform features trial with keppra initiated 06/18 spoke with RN stupor status unchanged no seizure noted will continue keppra for now and follow peripherally multiorgan failure Subjective Subjective Comments No neuro changes reported Active Medications Current Medications Medications (Trade) Dose Ordered Sig/Kiel Route Start Time Stop Time Status Last Admin (fentaNYL DRIP) 250 ml @ 0 mls/hr TITRATE IV 06/12/16 17:30 (NS Flush) 2 ml UNSCH PRN IV FLUSH 06/12/16 18:00 06/15/16 09:42 (NS Flush) 2 ml BID IV FLUSH 06/12/16 21:00 06/18/16 08:00 Miscellaneous Information 1 [id number] XX 06/12/16 18:00 (Chlorhexidine 2% Cloth) Taper DAILY@04 TOP 06/13/16 04:00 06/09/17 03:59 06/18/16 04:00 (Chlorhexidine 2% Cloth) 3 pack UNSCH PRN TOP 06/12/16 18:00 (Peridex 0.12% Liq) 15 ml BID@08,20 MT 06/12/16 20:00 06/18/16 07:59 (Lyrica) 75 mg BID PO 06/12/16 21:00 06/18/16 07:58 (Zoloft) 100 mg DAILY PO 06/12/16 20:15 Hold 06/15/16 09:41 (Lioresal) 10 mg TID PO 06/12/16 20:15 06/18/16 07:58 (Pepcid Inj) 20 mg HS IV PUSH 06/13/16 21:00 06/17/16 20:57 (D50w (Vial) Inj) 25 ml UNSCH PRN IV PUSH 06/13/16 08:15 (Glucagon Inj) 1 mg UNSCH PRN OTHER 06/13/16 08:15 (NovoLIN R SUPPLEMENTAL SCALE) 1 Q6H SQ 06/13/16 09:00 Lactulose 15 ml 15 ml BID PO 06/13/16 11:30 06/18/16 07:58 Potassium Chloride 100 ml @ 50 mls/hr Q2H PRN IV 06/13/16 16:00 06/17/16 09:08 (KCl 20 Meq Premix Inj) 100 ml @ 50 mls/hr Q2H PRN IV 06/13/16 16:00 Potassium Bicarb/ Potassium Chloride 50 meq 50 meq UNSCH PRN PO 06/13/16 16:00 Potassium Chloride 100 ml @ 25 mls/hr UNSCH PRN IV 06/13/16 16:00 06/17/16 20:59 Potassium Chloride 100 ml @ 50 mls/hr Q2H PRN IV 06/13/16 16:00 (Magnesium Sulfate Inj/NS Inj) 100 ml @ 50 mls/hr UNSCH PRN IV 06/13/16 16:00 Magnesium Oxide 800 mg 800 mg UNSCH PRN PO 06/13/16 16:00 (Magnesium Sulfate Inj/NS Inj) 100 ml @ 50 mls/hr UNSCH PRN IV 06/13/16 16:00 Potassium Phosphate 2000 mg 2,000 mg Q4H PRN PO 06/13/16 16:00 (Sodium Phosphate Inj/NS 250 ml Inj) 250 ml @ 42 mls/hr UNSCH PRN IV 06/13/16 16:00 06/18/16 09:34 Potassium Phosphate 2000 mg 2,000 mg UNSCH PRN PO/TUBE 06/13/16 16:00 Potassium Phosphate 30 mmol/ Sodium Chloride 260 ml @ 42 mls/hr UNSCH PRN IV 06/13/16 16:00 Dextrose/Sodium Chloride 1,000 ml @ 100 mls/hr Q10H IV 06/15/16 08:00 06/18/16 07:59 Piperacillin Sod/ Tazobactam Sod 100 ml @ 200 mls/hr Q6H IV 06/15/16 11:00 06/18/16 10:00 Linezolid 300 ml @ 300 mls/hr Q12H IV 06/15/16 12:00 06/17/16 20:55 (Keppra Inj/NS Inj) 105 ml @ 420 mls/hr Q12HR IV 06/15/16 21:00 06/18/16 07:59 (Reglan Inj) 5 mg Q8H PRN IV PUSH 06/16/16 09:15 (Miralax) 17 gm DAILY PO 06/16/16 16:45 06/18/16 07:58 Allergies Allergies Coded Allergies DO NOT USE (Verified Allergy, Mild, Hallucinations, 06/12/16) Exam I&O / VS 06/17/16 06/17/16 06/18/16 15:00 23:00 07:00 Intake Total 1169 ml 1109 ml 628 ml Output Total 1000 ml 1500 ml 1100 ml Balance 169 ml -391 ml -472 ml Intake IV Total 1109 ml 989 ml 628 ml Tube Feeding 0 ml Other 60 ml 120 ml 0 ml Output Urine Total 1000 ml 850 ml 700 ml Stool Total 650 ml 400 ml Gastric Drainage Total 0 ml 0 ml 0 ml # Bowel Movements 3 Vital Signs Date Time Temp Pulse Resp B/P Pulse Ox O2 Delivery O2 Flow Rate FiO2 06/18/16 10:00 100 06/18/16 08:05 98 35 06/18/16 08:00 35 06/18/16 08:00 102 06/18/16 08:00 99.7 89 16 115/68 100 06/18/16 06:00 103 06/18/16 04:05 100 35 06/18/16 04:00 103 06/18/16 04:00 35 06/18/16 04:00 100.4 102 16 119/74 100 06/18/16 02:00 100 06/18/16 00:00 105 06/18/16 00:00 100.2 106 16 115/71 98 06/18/16 00:00 35 06/17/16 23:52 96 35 06/17/16 22:00 105 06/17/16 20:00 106 06/17/16 20:00 100.4 106 16 106/62 99 06/17/16 20:00 35 06/17/16 19:57 98 35 06/17/16 18:00 108 06/17/16 16:09 98 35 06/17/16 16:00 108 06/17/16 16:00 100.4 104 17 106/66 90 06/17/16 16:00 35 06/17/16 14:00 105 06/17/16 13:54 90 35 06/17/16 12:27 93 35 06/17/16 12:00 35 06/17/16 12:00 100.0 108 27 112/69 96 06/17/16 12:00 110 Objective Micro and Labs Laboratory Tests Test 06/17/16 06/17/16 06/18/16 06/18/16 17:40 18:18 03:54 05:54 Potassium Level 3.5 3.6 Stool C. difficile Toxin (PCR) NEGATIVE Stl C. difficile Toxin PRESUMPTIVE Epiderm 027 NEGATIVE Lactic Acid Level 5.0 White Blood Count 6.0 Red Blood Count 3.14 Hemoglobin 8.3 Hematocrit 25.2 Mean Corpuscular Volume 80.3 Mean Corpuscular Hemoglobin 26.3 Mean Corpuscular Hemoglobin 32.7 Concent Red Cell Distribution Width 16.2 Platelet Count 76 Mean Platelet Volume 11.2 Neutrophils (%) (Auto) 86.0 Lymphocytes (%) (Auto) 11.0 Monocytes (%) (Auto) 2.6 Eosinophils (%) (Auto) 0.2 Basophils (%) (Auto) 0.2 Neutrophils # (Auto) 5.1 Lymphocytes # (Auto) 0.7 Monocytes # (Auto) 0.2 Eosinophils # (Auto) 0.0 Basophils # (Auto) 0.0 CBC Comment AUTO DIFF Differential Comment AUTO DIFF CONFIRMED Platelet Estimate LOW Platelet Morphology Comment NORMAL Sodium Level 144 Chloride Level 111 Carbon Dioxide Level 22.8 Anion Gap 10 Blood Urea Nitrogen 8 Creatinine 0.69 Estimat Glomerular Filtration 107 Rate Random Glucose 123 Calcium Level 7.9 Phosphorus Level 1.8 Magnesium Level 1.9 Total Bilirubin 0.2 Aspartate Amino Transf 436 (AST/SGOT) Alanine Aminotransferase 258 (ALT/SGPT) Alkaline Phosphatase 86 Total Creatine Kinase 3816 Creatine Kinase MB 81.2 Creatine Kinase MB % 2.1 Total Protein 5.5 Albumin 1.4 Date/Time Procedure Status Source Growth 06/15/16 12:40 Urine Culture - Final Complete Urine Catheterized Urine Escherichia Coli 06/15/16 12:30 Gram Stain - Final Resulted Sputum Endotracheal 06/15/16 12:30 Sputum Culture - Preliminary Resulted Staphylococcus Aureus Susanna Boggs MD Jun 18, 2016 10:57
[2016-06-18] MEDS: LINEZOLID 600 MG PREMIX 300 ML IV SCH (11:09)
--- NOTE | 2016-06-18 15:12 | HHI.CCPN ---
Subjective Remarks/Hospital Course 56-year-old female brought in by EMS emergently as altered mental status, hypoxia and temperature 104. Patient has a history of CVA many years ago. Per caregiver she didn't feel well since yesterday and wasn't taking any of medications including baclofen. Patient was unable to communicate due to her altered mental status. As per EMS not much history was available from the family but she has history of CVA as baseline but communicates. In the emergency department patient's oxygen saturation was low 70s upon EMS arrival. They had her on oxygen via nonrebreather and sats of 93%. GCS was 6 and she was intubated by ER attending for an airway protection. 06/13 Patient is sedated with Versed and on Bicarb drip. Renal function is improving with Cr: 2.12 from 3.19 UO: 1350ml since yesterday. Afebrile. 06/14 Patient remains sedated and intubated. Afebrile. Renal function continue to improve with Cr: 1.18 today from 1.53. 06/15 No acute events overnight. Off sedation remains intubated. Patient tolerated CPAP all day yesterday. MRA brain last night is unremarkable. T:99.9 06/16 Patient remains intubated off sedation. Afebrile. Tolerated CPAP all day yesterday remains encephalopathic. 06/17 No acute events overnight. Patient is able to open her eyes but does not follow commands. T: 100.1 last night. 06/18: Remains encephalopathic, orally intubated on mechanical ventilation. Objective Vital Signs Date Time Temp Pulse Resp B/P Pulse Ox O2 Delivery O2 Flow Rate FiO2 06/18/16 14:47 98 35 06/18/16 12:00 99.5 99 23 115/73 Intake and Output 06/17/16 06/17/16 06/18/16 08:00 16:00 00:00 Intake Total 568 ml 1169 ml 1109 ml Output Total 600 ml 1000 ml 1500 ml Balance -32 ml 169 ml -391 ml Result Diagram: 06/18/16 0554 06/18/16 0554 Imaging Last Impressions Abdomen/Pelvis CT 06/17/16 0000 Signed Impressions: Service Date/Time: Friday, June 17, 2016 04:12 - CONCLUSION: 1. New bibasilar atelectasis. 2. There is some mild dilatation of the small bowel. There is a mild to moderate distention of the colon down to the rectum suggestive of a diffuse adynamic ileus. No definite mechanical obstruction is seen. 3. Otherwise, no other significant changes compared to the prior study. Andi Luna MD Chest X-Ray 06/16/16 Signed Impressions: Service Date/Time: Thursday, June 16, 2016 04:51 - CONCLUSION: Right basilar density likely atelectasis.. Chadd Kahn MD Abdomen X-Ray 06/16/16 Signed Impressions: Service Date/Time: Thursday, June 16, 2016 17:15 - CONCLUSION: 1. Nonspecific bowel gas pattern which may represent a mild ileus or gastroenteritis. Rico Pedraza MD Brain MRI 06/15/16 Signed Impressions: Service Date/Time: Wednesday, June 15, 2016 09:10 - CONCLUSION: No acute abnormality seen. 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 Reginaldo Cain MD Head Magnetic Resonance Angiography 06/14/16 Signed Impressions: Service Date/Time: Tuesday, June 14, 2016 18:23 - CONCLUSION: No evidence of vessel truncation or aneurysm. Simone Graham MD Liver Ultrasound 06/13/16 Signed Impressions: Service Date/Time: Monday, June 13, 2016 09:42 - CONCLUSION: 1. Small amount free fluid identified medial to the lower pole of the right kidney. 2. Slight increased hepatic echotexture suggesting some degree of fatty infiltration. 3. Please note the body and tail of the pancreas are obscured by overlying bowel gas. The head neck and uncinate process are sonographically intact. Mauro Leslie MD Head CT 06/12/16 1657 Signed Impressions: Service Date/Time: May 21:37 - CONCLUSION: Unremarkable study. Jose Martinez MD Renal Ultrasound 06/12/16 Signed Impressions: Service Date/Time: May 23:51 - CONCLUSION: 1. Mild pelvocaliectasis on the right. No hydronephrosis involving either kidney. Simone Woody Jr., MD Chest CT 06/12/16 Signed Impressions: Service Date/Time: May 21:39 - CONCLUSION: Right upper lobe parenchymal process may represent pneumonia, however follow up is suggested with repeat noncontrast chest CT in 2-4 weeksafter appropriate clinical therapy. Jose Martinez MD Objective Remarks GENERAL: Elderly woman sedated and intubated SKIN: Warm and dry. HEAD: Normocephalic. EYES: No scleral icterus. No injection or drainage. NECK: Supple, trachea midline. No JVD or lymphadenopathy. CARDIOVASCULAR: Regular rate and rhythm without murmurs, gallops, or rubs. RESPIRATORY: Breath sounds equal bilaterally. No accessory muscle use. GASTROINTESTINAL: Abdomen soft, non-tender, nondistended. MUSCULOSKELETAL: No cyanosis, or edema. EXTREMITIES: No clubbing cyanosis or edema Neuro: Remains encephalopathic off sedation, orally intubated on mechanical ventilation A/P Assessment and Plan Acute respiratory failure on mechanical ventilation Encephalopathy SIRS/sepsis Acute kidney injury Rhabdo Hypernatremia Hypokalemia Anemia Lactic acidemia Leukocytosis- resolved Elevated LFT UTI Plan Neuro: Off sedation. Monitor neuro status and avoid sedatives. Ammonia level: 40, TSH 2.5. Continue with Lactulose. CT brain: No acute findings. UDS+ +Benzos MRA brain 06/14- Unremarkable. s/p LP showed clear CSF and 15 WBC. EEG: Bihemispheric slowing, small sharp waves b/l neuro is following- Dr. Boggs, On Keppra 500mg Q12 Pulm: Continue with vent support keep sat >92% Bronchodilators, ICU vent bundle. SBT trials as cherie CV: Monitor HR and BP keep MAP>65mmHg. Lactic acid trending down. : Monitor renal function, I/O's, avoid nephrotoxins. Electrolytes replacement per protocol. Renal US: No hydronephrosis. Renal is following- Dr. Corral IVF D5NS@100ml/hr monitor Sodium level and CK's. GI: On Pepcid 20meq IV qhs, tube feeds on hold (Glucerna 1.5 with goal rate 45ml /hr) Monitor LFT's ( trending down), US liver: Fatty liver, GI is following. CT abdomen/pelvis last night- findings suggestive of adynamic ileus. No mechanical obstruction. On Reglan 5mg Iv q8 PRN, Miralax, Lactulose ID: Continue abx per ID (Zyvox,Zosyn)monitor for signs of infections ( Fever, WBC) Patient was given Vanco, Zosyn, Zithromax in ED. 06/12 Urine cx: E.coli 06/12 BC: No growth 06/12 CSG: NGTD 06/15 urine: GNR, sputum: Staph Aureus Heme: Monitor CBC, coags, Hep plt ab negative. Thrombocytopenia likely 2nd sepsis Endo: SSI for glycemic control, TSH level: 2.5 GI Prophylaxis with Pepcid DVT prophylaxis with SCD, not on AC prophylaxis 2nd to thrombocytopenia Time spent on critical care excluding procedures 30 minutes Michael Torre MD Jun 18, 2016 15:12
--- NOTE | 2016-06-18 16:35 | HHI.IDPN ---
Subjective Subjective Remarks + low grade fever persistent lactic acidosis TF restarted diarrhea, C.diff negative tolerating CPAP Antibiotics Zosyn zyvox Past Medical History Reviewed Allergies: Coded Allergies: DO NOT USE (Verified Allergy, Mild, Hallucinations, 06/12/16) Objective . Vital Signs Date Time Temp Pulse Resp B/P Pulse Ox O2 Delivery O2 Flow Rate FiO2 06/18/16 16:00 99.3 95 22 116/67 100 06/18/16 16:00 97 06/18/16 16:00 35 06/18/16 14:47 98 35 06/18/16 14:00 85 06/18/16 12:00 99.5 99 23 115/73 100 06/18/16 12:00 35 06/18/16 12:00 97 06/18/16 11:43 100 35 06/18/16 10:00 100 06/18/16 08:05 98 35 06/18/16 08:00 35 06/18/16 08:00 102 06/18/16 08:00 99.7 89 16 115/68 100 06/18/16 06:00 103 06/18/16 04:05 100 35 06/18/16 04:00 103 06/18/16 04:00 35 06/18/16 04:00 100.4 102 16 119/74 100 06/18/16 02:00 100 06/18/16 00:00 105 06/18/16 00:00 100.2 106 16 115/71 98 06/18/16 00:00 35 06/17/16 23:52 96 35 06/17/16 22:00 105 06/17/16 20:00 106 06/17/16 20:00 100.4 106 16 106/62 99 06/17/16 20:00 35 06/17/16 19:57 98 35 06/17/16 18:00 108 06/17/16 06/17/16 06/18/16 15:00 23:00 07:00 Intake Total 1169 ml 1109 ml 628 ml Output Total 1000 ml 1500 ml 1100 ml Balance 169 ml -391 ml -472 ml Intake IV Total 1109 ml 989 ml 628 ml Tube Feeding 0 ml Other 60 ml 120 ml 0 ml Output Urine Total 1000 ml 850 ml 700 ml Stool Total 650 ml 400 ml Gastric Drainage Total 0 ml 0 ml 0 ml # Bowel Movements 3 . Laboratory Tests Test 06/17/16 06/18/16 06:35 05:54 White Blood Count 6.4 TH/MM3 6.0 TH/MM3 Red Blood Count 3.12 MIL/MM3 3.14 MIL/MM3 Hemoglobin 8.4 GM/DL 8.3 GM/DL Hematocrit 25.0 % 25.2 % Mean Corpuscular Volume 80.0 FL 80.3 FL Mean Corpuscular Hemoglobin 26.8 PG 26.3 PG Mean Corpuscular Hemoglobin 33.5 % 32.7 % Concent Red Cell Distribution Width 16.2 % 16.2 % Platelet Count 66 TH/MM3 76 TH/MM3 Mean Platelet Volume 10.3 FL 11.2 FL Neutrophils (%) (Auto) 87.9 % 86.0 % Lymphocytes (%) (Auto) 9.5 % 11.0 % Monocytes (%) (Auto) 2.4 % 2.6 % Eosinophils (%) (Auto) 0.1 % 0.2 % Basophils (%) (Auto) 0.1 % 0.2 % Neutrophils # (Auto) 5.6 TH/MM3 5.1 TH/MM3 Lymphocytes # (Auto) 0.6 TH/MM3 0.7 TH/MM3 Monocytes # (Auto) 0.2 TH/MM3 0.2 TH/MM3 Eosinophils # (Auto) 0.0 TH/MM3 0.0 TH/MM3 Basophils # (Auto) 0.0 TH/MM3 0.0 TH/MM3 CBC Comment AUTO DIFF AUTO DIFF Differential Comment AUTO DIFF AUTO DIFF CONFIRMED CONFIRMED Platelet Estimate LOW LOW Platelet Morphology Comment NORMAL NORMAL Laboratory Tests Test 06/16/16 06/16/16 06/17/16 06/17/16 18:00 21:24 06:35 08:20 Phosphorus Level 3.0 MG/DL Iron Level 63 MCG/DL Total Iron Binding Capacity 113 MCG/DL Percent Iron Saturation 55.6 % Ferritin 1180 NG/ML Lactic Acid Level 4.4 mmol/L 4.5 mmol/L Tumor Marker Alpha Fetoprotein 4.0 NG/ML [id number] 256 mg/dL Sodium Level 143 MEQ/L Potassium Level 3.2 MEQ/L Chloride Level 108 MEQ/L Carbon Dioxide Level 23.9 MEQ/L Anion Gap 11 MEQ/L Blood Urea Nitrogen 9 MG/DL Creatinine 0.78 MG/DL Estimat Glomerular Filtration 93 ML/MIN Rate Random Glucose 99 MG/DL Calcium Level 8.0 MG/DL Total Bilirubin 0.3 MG/DL Aspartate Amino Transf 488 U/L (AST/SGOT) Alanine Aminotransferase 250 U/L (ALT/SGPT) Alkaline Phosphatase 92 U/L Total Protein 5.7 GM/DL Albumin 1.5 GM/DL Total Creatine Kinase 4356 U/L Creatine Kinase MB 102.1 NG/ML Creatine Kinase MB % 2.3 % Test 06/17/16 06/18/16 06/18/16 17:40 03:54 05:54 Potassium Level 3.5 MEQ/L 3.6 MEQ/L Lactic Acid Level 5.0 mmol/L Sodium Level 144 MEQ/L Chloride Level 111 MEQ/L Carbon Dioxide Level 22.8 MEQ/L Anion Gap 10 MEQ/L Blood Urea Nitrogen 8 MG/DL Creatinine 0.69 MG/DL Estimat Glomerular Filtration 107 ML/MIN Rate Random Glucose 123 MG/DL Calcium Level 7.9 MG/DL Phosphorus Level 1.8 MG/DL Magnesium Level 1.9 MG/DL Total Bilirubin 0.2 MG/DL Aspartate Amino Transf 436 U/L (AST/SGOT) Alanine Aminotransferase 258 U/L (ALT/SGPT) Alkaline Phosphatase 86 U/L Total Creatine Kinase 3816 U/L Creatine Kinase MB 81.2 NG/ML Creatine Kinase MB % 2.1 % Total Protein 5.5 GM/DL Albumin 1.4 GM/DL Imaging Last Impressions Chest X-Ray 06/18/16 0000 Signed Impressions: Service Date/Time: Saturday, June 18, 2016 02:40 - CONCLUSION: Stable mild right lower lung infiltrate. Andi Luna MD Abdomen/Pelvis CT 06/17/16 0000 Signed Impressions: Service Date/Time: Friday, June 17, 2016 04:12 - CONCLUSION: 1. New bibasilar atelectasis. 2. There is some mild dilatation of the small bowel. There is a mild to moderate distention of the colon down to the rectum suggestive of a diffuse adynamic ileus. No definite mechanical obstruction is seen. 3. Otherwise, no other significant changes compared to the prior study. Andi Luna MD Abdomen X-Ray 06/16/16 0000 Signed Impressions: Service Date/Time: Thursday, June 16, 2016 17:15 - CONCLUSION: 1. Nonspecific bowel gas pattern which may represent a mild ileus or gastroenteritis. Rico Pedraza MD Brain MRI 06/15/16 Signed Impressions: Service Date/Time: Wednesday, June 15, 2016 09:10 - CONCLUSION: No acute abnormality seen. 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 Reginaldo Cain MD Head Magnetic Resonance Angiography 06/14/16 Signed Impressions: Service Date/Time: Tuesday, June 14, 2016 18:23 - CONCLUSION: No evidence of vessel truncation or aneurysm. Simone Graham MD Liver Ultrasound 06/13/16 Signed Impressions: Service Date/Time: Monday, June 13, 2016 09:42 - CONCLUSION: 1. Small amount free fluid identified medial to the lower pole of the right kidney. 2. Slight increased hepatic echotexture suggesting some degree of fatty infiltration. 3. Please note the body and tail of the pancreas are obscured by overlying bowel gas. The head neck and uncinate process are sonographically intact. Mauro Leslie MD Head CT 06/12/161656 Signed Impressions: Service Date/Time: May 21:37 - CONCLUSION: Unremarkable study. Jose Martinez MD Renal Ultrasound 06/12/16 Signed Impressions: Service Date/Time: May 23:51 - CONCLUSION: 1. Mild pelvocaliectasis on the right. No hydronephrosis involving either kidney. Simone Woody Jr., MD Chest CT 06/12/16 Signed Impressions: Service Date/Time: May 21:39 - CONCLUSION: Right upper lobe parenchymal process may represent pneumonia, however follow up is suggested with repeat noncontrast chest CT in 2-4 weeksafter appropriate clinical therapy. Jose Martinez MD Physical Exam GENERAL: on the vent, NAD SKIN: No jaundice, rashes, or lesions. Cool and dry HEAD: Atraumatic. Normocephalic. EYES: Pupils equal and round and reactive. No scleral icterus. No injection or drainage. ENT: Nose without bleeding or purulent drainage. Orally intubated NECK: Trachea midline. Supple, nontender. CARDIOVASCULAR: Regular rate and rhythm without murmurs, gallops, or rubs. No JVD. Peripheral pulses symmetric. RESPIRATORY/CHEST: Bilateral diffuse coarse rhonchi GASTROINTESTINAL: Abdomen soft, no reaction to palpation, minimally distended. No guarding. Bowel sounds present. Incontinent of liquid brown stool GENITOURINARY: Cortes catheter in place with clear yellow urine MUSCULOSKELETAL: Extremities without clubbing, cyanosis, + small amount of edema. No mottling or clubbing. NEUROLOGICAL: opens eyes, not following commands PSYCHIATRIC: unable to assess LINE no evidence of infection : Cortes in place urine looks clear Assessment & Plan Remarks Sepsis (fever, hypoxi, leukocytosis, lactic acidosis, multi organ function) - ? source not clear, has E coli in UC but her UA is unremarkable - CT with RUL infiltrate, ?PNA - growing Staph aureus, MSSA Lymphocytic pleocytosis in CSF - C/S negative ARF/CKD, creatinine now normal Respiratory failure Leukocytosis, Worsening lactic acidosis ? ischemic bowel Diarrhea, ro C.diff PLAN cont Zosyn dc zyvox for MRSA coverge patient untioll susceptibilities are available - follow CBC chk stool for C.diff D/W SUKUMAR Ortiz,Briseida Savage MD Jun 18, 2016 16:35
[2016-06-18] MEDS: FAMOTIDINE 20 MG/2 ML VIAL IV PUSH SCH (20:30)
[2016-06-19] VITALS (13 sets, daily range): BP systolic 109–127; BP diastolic 61–74; PULSE 104–112; RESP 16–29; TEMP 99.5–100.7; O2SAT 97–100
[2016-06-19] MEDS: INSULIN NovoLIN REGULAR SUPPLEMENTAL SCALE SQ SCH ×4 (03:00→21:00)
[2016-06-19] MEDS: CHLORHEXIDINE GLUCONATE 2 % 1 PACK (2 CLOTHS) TOP SCH (03:05)
[2016-06-19] MEDS: DEXT 5%-NACL 0.9% 1000 ML INJ 1,000 ML IV SCH ×2 (03:05→18:17)
[2016-06-19 04:48] LABS: ALT (GPT) 248 U/L (10-53); AST (GOT) 299 U/L (15-37)
[2016-06-19 04:50] LABS: ALKALINE PHOSPHATASE 82 U/L (45-117); INDIRECT BILIRUBIN 0.1 MG/DL (0.0-0.8); TOTAL BILIRUBIN ADULT 0.2 MG/DL (0.2-1.0)
[2016-06-19] MEDS: PIPERACIL-TAZO 4.5 GM PREMIX 100 ML IV SCH ×2 (06:02→10:47)
[2016-06-19] MEDS: POLYETHYLENE GLYCOL 17 GM PKG PO SCH (08:54)
[2016-06-19] MEDS: PREGABALIN 75 MG CAP PO SCH ×2 (08:54→21:37)
[2016-06-19] MEDS: CHLORHEXIDINE 0.12% (ORAL KIT) 15 ML CUP MT SCH ×2 (08:54→21:30)
[2016-06-19] MEDS: SODIUM CHLORIDE 0.9% FLUSH 10 ML FLUSH IV FLUSH SCH ×2 (08:54→21:36)
[2016-06-19] MEDS: BACLOFEN 10 MG TAB PO SCH ×3 (08:54→18:17)
[2016-06-19] MEDS: LACTULOSE SYRUP 20 GM/30 ML CUP PO SCH ×2 (08:54→21:37)
[2016-06-19] MEDS: levETIRAcetam INJ 500 MG in SODIUM CHLORIDE 0.9% INJ 100 ML IV SCH ×2 (08:54→21:34)
[2016-06-19 09:45] LABS: ALKALINE PHOSPHATASE 88 U/L (45-117); ALT (GPT) 273 U/L (10-53); ANION GAP 10 MEQ/L (5-15); AST (GOT) 302 U/L (15-37); BICARBONATE 24.3 MEQ/L (21.0-32.0); BLOOD UREA NITROGEN 9 MG/DL (7-18); CHLORIDE 111 MEQ/L (98-107); GLOMERULAR FILTRATION RATE 113 ML/MIN (>89); SODIUM (NA) 145 MEQ/L (136-145); TOTAL BILIRUBIN ADULT 0.2 MG/DL (0.2-1.0)
[2016-06-19 09:59] LABS: POTASSIUM 2.9 MEQ/L (3.5-5.1)
[2016-06-19] MEDS: POTASSIUM CHLOR 40 MEQ PREMIX 100 ML IV PRN (10:12)
--- NOTE | 2016-06-19 13:42 | HHI.CCPN ---
Subjective Remarks/Hospital Course 56-year-old female brought in by EMS emergently as altered mental status, hypoxia and temperature 104. Patient has a history of CVA many years ago. Per caregiver she didn't feel well since yesterday and wasn't taking any of medications including baclofen. Patient was unable to communicate due to her altered mental status. As per EMS not much history was available from the family but she has history of CVA as baseline but communicates. In the emergency department patient's oxygen saturation was low 70s upon EMS arrival. They had her on oxygen via nonrebreather and sats of 93%. GCS was 6 and she was intubated by ER attending for an airway protection. 06/13 Patient is sedated with Versed and on Bicarb drip. Renal function is improving with Cr: 2.12 from 3.19 UO: 1350ml since yesterday. Afebrile. 06/14 Patient remains sedated and intubated. Afebrile. Renal function continue to improve with Cr: 1.18 today from 1.53. 06/15 No acute events overnight. Off sedation remains intubated. Patient tolerated CPAP all day yesterday. MRA brain last night is unremarkable. T:99.9 06/16 Patient remains intubated off sedation. Afebrile. Tolerated CPAP all day yesterday remains encephalopathic. 06/17 No acute events overnight. Patient is able to open her eyes but does not follow commands. T: 100.1 last night. 06/18: Remains encephalopathic, orally intubated on mechanical ventilation. 06/19: Remains encephalopathic, orally intubated on mechanical ventilation. Daily C Pap trials ongoing. Objective Vital Signs Date Time Temp Pulse Resp B/P Pulse Ox O2 Delivery O2 Flow Rate FiO2 06/19/16 13:00 35 06/19/16 11:43 99 06/19/16 06:00 109 06/19/16 04:00 100.7 16 115/61 Intake and Output 06/18/16 06/18/16 06/19/16 08:00 16:00 00:00 Intake Total 628 ml 1665 ml 1153 ml Output Total 1100 ml 850 ml 975 ml Balance -472 ml 815 ml 178 ml Result Diagram: 06/18/16 0554 06/19/16 0400 Other Results Laboratory Tests Test 06/19/16 04:00 Sodium Level 145 MEQ/L Potassium Level 2.9 MEQ/L Chloride Level 111 MEQ/L Carbon Dioxide Level 24.3 MEQ/L Anion Gap 10 MEQ/L Blood Urea Nitrogen 9 MG/DL Creatinine 0.66 MG/DL Estimat Glomerular Filtration 113 ML/MIN Rate Random Glucose 104 MG/DL Calcium Level 7.6 MG/DL Total Bilirubin 0.2 MG/DL Direct Bilirubin LESS THAN 0.1 MG/DL Indirect Bilirubin 0.1 MG/DL Aspartate Amino Transf 302 U/L (AST/SGOT) Alanine Aminotransferase 273 U/L (ALT/SGPT) Alkaline Phosphatase 88 U/L Total Protein 5.7 GM/DL Albumin 1.4 GM/DL Imaging Last Impressions Abdomen/Pelvis CT 06/17/16 0000 Signed Impressions: Service Date/Time: Friday, June 17, 2016 04:12 - CONCLUSION: 1. New bibasilar atelectasis. 2. There is some mild dilatation of the small bowel. There is a mild to moderate distention of the colon down to the rectum suggestive of a diffuse adynamic ileus. No definite mechanical obstruction is seen. 3. Otherwise, no other significant changes compared to the prior study. Andi Luna MD Chest X-Ray 06/16/16 0000 Signed Impressions: Service Date/Time: Thursday, June 16, 2016 04:51 - CONCLUSION: Right basilar density likely atelectasis.. Chadd Kahn MD Abdomen X-Ray 06/16/16 0000 Signed Impressions: Service Date/Time: Thursday, June 16, 2016 17:15 - CONCLUSION: 1. Nonspecific bowel gas pattern which may represent a mild ileus or gastroenteritis. Rico Pedraza MD Brain MRI 06/15/16 0000 Signed Impressions: Service Date/Time: Wednesday, June 15, 2016 09:10 - CONCLUSION: No acute abnormality seen. 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 Reginaldo Cain MD Head Magnetic Resonance Angiography 06/14/16 0000 Signed Impressions: Service Date/Time: Tuesday, June 14, 2016 18:23 - CONCLUSION: No evidence of vessel truncation or aneurysm. Simone Graham MD Liver Ultrasound 06/13/16 0000 Signed Impressions: Service Date/Time: Monday, June 13, 2016 09:42 - CONCLUSION: 1. Small amount free fluid identified medial to the lower pole of the right kidney. 2. Slight increased hepatic echotexture suggesting some degree of fatty infiltration. 3. Please note the body and tail of the pancreas are obscured by overlying bowel gas. The head neck and uncinate process are sonographically intact. Mauro Leslie MD Head CT 06/12/16 1657 Signed Impressions: Service Date/Time: May 21:37 - CONCLUSION: Unremarkable study. Jose Martinez MD Renal Ultrasound 06/12/16 0000 Signed Impressions: Service Date/Time: May 23:51 - CONCLUSION: 1. Mild pelvocaliectasis on the right. No hydronephrosis involving either kidney. Simone Woody Jr., MD Chest CT 06/12/16 0000 Signed Impressions: Service Date/Time: May 21:39 - CONCLUSION: Right upper lobe parenchymal process may represent pneumonia, however follow up is suggested with repeat noncontrast chest CT in 2-4 weeksafter appropriate clinical therapy. Jose Martinez MD Objective Remarks GENERAL: Elderly woman sedated and intubated SKIN: Warm and dry. HEAD: Normocephalic. EYES: No scleral icterus. No injection or drainage. NECK: Supple, trachea midline. No JVD or lymphadenopathy. CARDIOVASCULAR: Regular rate and rhythm without murmurs, gallops, or rubs. RESPIRATORY: Breath sounds equal bilaterally. No accessory muscle use. GASTROINTESTINAL: Abdomen soft, non-tender, nondistended. MUSCULOSKELETAL: No cyanosis, or edema. EXTREMITIES: No clubbing cyanosis or edema Neuro: Remains encephalopathic off sedation, orally intubated on mechanical ventilation A/P Assessment and Plan Acute respiratory failure on mechanical ventilation Encephalopathy SIRS/sepsis Acute kidney injury Rhabdo Hypernatremia Hypokalemia Anemia Lactic acidemia Leukocytosis- resolved Elevated LFT UTI Plan Neuro: Off sedation. Monitor neuro status and avoid sedatives. Ammonia level: 40, TSH 2.5. Continue with Lactulose. CT brain: No acute findings. UDS+ +Benzos MRA brain 06/14- Unremarkable. s/p LP showed clear CSF and 15 WBC. EEG: Bihemispheric slowing, small sharp waves b/l neuro is following- Dr. Boggs, On Keppra 500mg Q12 Pulm: Continue with vent support keep sat >92% Bronchodilators, ICU vent bundle. SBT trials as cherie CV: Monitor HR and BP keep MAP>65mmHg. Lactic acid trending down. : Monitor renal function, I/O's, avoid nephrotoxins. Electrolytes replacement per protocol. Renal US: No hydronephrosis. Renal is following- Dr. Corral IVF D5NS@100ml/hr monitor Sodium level and CK's. GI: On Pepcid 20meq IV qhs, tube feeds on hold (Glucerna 1.5 with goal rate 45ml /hr) Monitor LFT's ( trending down), US liver: Fatty liver, GI is following. CT abdomen/pelvis last night- findings suggestive of adynamic ileus. No mechanical obstruction. On Reglan 5mg Iv q8 PRN, Miralax, Lactulose ID: Continue abx per ID (Zyvox,Zosyn)monitor for signs of infections ( Fever, WBC) Patient was given Vanco, Zosyn, Zithromax in ED. 06/12 Urine cx: E.coli 06/12 BC: No growth 06/12 CSG: NGTD 06/15 urine: GNR, sputum: Staph Aureus Heme: Monitor CBC, coags, Hep plt ab negative. Thrombocytopenia likely 2nd sepsis Endo: SSI for glycemic control, TSH level: 2.5 GI Prophylaxis with Pepcid DVT prophylaxis with SCD, not on AC prophylaxis 2nd to thrombocytopenia Time spent on critical care excluding procedures 30 minutes Michael Torre MD Jun 19, 2016 13:42
--- NOTE | 2016-06-19 16:40 | HHI.IDPN ---
Subjective Subjective Remarks low grade fever up to 100 not following commands cont to have liquid stool, but tolerates TF at goal not much secretions Antibiotics Zosyn Past Medical History Reviewed Allergies: Coded Allergies: DO NOT USE (Verified Allergy, Mild, Hallucinations, 06/12/16) Objective . Vital Signs Date Time Temp Pulse Resp B/P Pulse Ox O2 Delivery O2 Flow Rate FiO2 06/19/16 16:00 99.9 112 16 120/71 100 06/19/16 13:00 35 06/19/16 12:00 35 06/19/16 12:00 99.5 109 29 109/64 98 06/19/16 11:43 99 35 06/19/16 08:29 35 06/19/16 08:29 97 35 06/19/16 08:00 99.7 111 16 115/61 100 06/19/16 08:00 35 06/19/16 06:00 109 06/19/16 04:30 100 35 06/19/16 04:00 35 06/19/16 04:00 111 06/19/16 04:00 100.7 111 16 115/61 100 06/19/16 02:00 109 06/19/16 00:00 104 06/19/16 00:00 35 06/19/16 00:00 100.3 104 16 117/68 100 06/18/16 23:54 100 35 06/18/16 22:00 99 06/18/16 20:09 100 35 06/18/16 20:00 102 06/18/16 20:00 99.6 102 25 116/65 100 06/18/16 20:00 35 06/18/16 18:00 108 06/18/16 06/18/16 06/19/16 15:00 23:00 07:00 Intake Total 1665 ml 1153 ml 1097 ml Output Total 850 ml 975 ml 900 ml Balance 815 ml 178 ml 197 ml Intake IV Total 1533 ml 974 ml 781 ml Tube Feeding 72 ml 179 ml 316 ml Other 60 ml Output Urine Total 850 ml 950 ml 800 ml Stool Total 0 ml 25 ml 100 ml . Laboratory Tests Test 06/18/16 05:54 White Blood Count 6.0 TH/MM3 Red Blood Count 3.14 MIL/MM3 Hemoglobin 8.3 GM/DL Hematocrit 25.2 % Mean Corpuscular Volume 80.3 FL Mean Corpuscular Hemoglobin 26.3 PG Mean Corpuscular Hemoglobin 32.7 % Concent Red Cell Distribution Width 16.2 % Platelet Count 76 TH/MM3 Mean Platelet Volume 11.2 FL Neutrophils (%) (Auto) 86.0 % Lymphocytes (%) (Auto) 11.0 % Monocytes (%) (Auto) 2.6 % Eosinophils (%) (Auto) 0.2 % Basophils (%) (Auto) 0.2 % Neutrophils # (Auto) 5.1 TH/MM3 Lymphocytes # (Auto) 0.7 TH/MM3 Monocytes # (Auto) 0.2 TH/MM3 Eosinophils # (Auto) 0.0 TH/MM3 Basophils # (Auto) 0.0 TH/MM3 CBC Comment AUTO DIFF Differential Comment AUTO DIFF CONFIRMED Platelet Estimate LOW Platelet Morphology Comment NORMAL Laboratory Tests Test 06/17/16 06/18/16 06/18/16 06/19/16 17:40 03:54 05:54 04:00 Potassium Level 3.5 MEQ/L 3.6 MEQ/L 2.9 MEQ/L Lactic Acid Level 5.0 mmol/L Sodium Level 144 MEQ/L 145 MEQ/L Chloride Level 111 MEQ/L 111 MEQ/L Carbon Dioxide Level 22.8 MEQ/L 24.3 MEQ/L Anion Gap 10 MEQ/L 10 MEQ/L Blood Urea Nitrogen 8 MG/DL 9 MG/DL Creatinine 0.69 MG/DL 0.66 MG/DL Estimat Glomerular Filtration 107 ML/MIN 113 ML/MIN Rate Random Glucose 123 MG/DL 104 MG/DL Calcium Level 7.9 MG/DL 7.6 MG/DL Phosphorus Level 1.8 MG/DL Magnesium Level 1.9 MG/DL Total Bilirubin 0.2 MG/DL 0.2 MG/DL Aspartate Amino Transf 436 U/L 302 U/L (AST/SGOT) Alanine Aminotransferase 258 U/L 273 U/L (ALT/SGPT) Alkaline Phosphatase 86 U/L 88 U/L Total Creatine Kinase 3816 U/L Creatine Kinase MB 81.2 NG/ML Creatine Kinase MB % 2.1 % Total Protein 5.5 GM/DL 5.7 GM/DL Albumin 1.4 GM/DL 1.4 GM/DL Direct Bilirubin LESS THAN 0.1 MG/DL Indirect Bilirubin 0.1 MG/DL Imaging Last Impressions Chest X-Ray 06/18/16 0000 Signed Impressions: Service Date/Time: Saturday, June 18, 2016 02:40 - CONCLUSION: Stable mild right lower lung infiltrate. Andi Luna MD Abdomen/Pelvis CT 06/17/16 0000 Signed Impressions: Service Date/Time: Friday, June 17, 2016 04:12 - CONCLUSION: 1. New bibasilar atelectasis. 2. There is some mild dilatation of the small bowel. There is a mild to moderate distention of the colon down to the rectum suggestive of a diffuse adynamic ileus. No definite mechanical obstruction is seen. 3. Otherwise, no other significant changes compared to the prior study. Andi Luna MD Abdomen X-Ray 06/16/16 0000 Signed Impressions: Service Date/Time: Thursday, June 16, 2016 17:15 - CONCLUSION: 1. Nonspecific bowel gas pattern which may represent a mild ileus or gastroenteritis. Rico Pedraza MD Brain MRI 06/15/16 0000 Signed Impressions: Service Date/Time: Wednesday, June 15, 2016 09:10 - CONCLUSION: No acute abnormality seen. 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 Reginaldo Cain MD Head Magnetic Resonance Angiography 06/14/16 0000 Signed Impressions: Service Date/Time: Tuesday, June 14, 2016 18:23 - CONCLUSION: No evidence of vessel truncation or aneurysm. Simone Graham MD Liver Ultrasound 06/13/16 0000 Signed Impressions: Service Date/Time: Monday, June 13, 2016 09:42 - CONCLUSION: 1. Small amount free fluid identified medial to the lower pole of the right kidney. 2. Slight increased hepatic echotexture suggesting some degree of fatty infiltration. 3. Please note the body and tail of the pancreas are obscured by overlying bowel gas. The head neck and uncinate process are sonographically intact. Mauro Leslie MD Head CT 06/12/16 1657 Signed Impressions: Service Date/Time: May 21:37 - CONCLUSION: Unremarkable study. Jose Martinez MD Renal Ultrasound 06/12/16 0000 Signed Impressions: Service Date/Time: May 23:51 - CONCLUSION: 1. Mild pelvocaliectasis on the right. No hydronephrosis involving either kidney. Simone Woody Jr., MD Chest CT 06/12/16 0000 Signed Impressions: Service Date/Time: May 21:39 - CONCLUSION: Right upper lobe parenchymal process may represent pneumonia, however follow up is suggested with repeat noncontrast chest CT in 2-4 weeksafter appropriate clinical therapy. Jose Martinez MD Physical Exam GENERAL: on the vent, NAD SKIN: No jaundice, rashes, or lesions. Cool and dry HEAD: Atraumatic. Normocephalic. EYES: Pupils equal and round and reactive. No scleral icterus. No injection or drainage. ENT: Nose without bleeding or purulent drainage. Orally intubated NCARDIOVASCULAR: Regular rate and rhythm without murmurs, gallops, or rubs. No JVD. Peripheral pulses symmetric. RESPIRATORY/CHEST: Bilateral diffuse coarse rhonchi GASTROINTESTINAL: Abdomen soft, no reaction to palpation, minimally distended. No guarding. Bowel sounds present. Incontinent of liquid brown stool GENITOURINARY: Cortes catheter in place with clear yellow urine MUSCULOSKELETAL: Extremities without clubbing, cyanosis, + small amount of edema. No mottling or clubbing. NEUROLOGICAL: off sedation since 06/15: opens eyes to noxious stimuli , not following commands; + gag PSYCHIATRIC: unable to assess LINE no evidence of infection : Cortes in place urine looks clear Assessment & Plan Remarks Sepsis (fever, hypoxi, leukocytosis, lactic acidosis, multi organ function) - ? source not clear, has E coli in UC but her UA is unremarkable - CT with RUL infiltrate, ?PNA - growing Staph aureus, MSSA Lymphocytic pleocytosis in CSF - C/S negative - VRDF negative ARF/CKD, creatinine now normal Respiratory failure Leukocytosis, Worsening lactic acidosis ? ischemic bowel Diarrhea, no e/o C.diff UTI, E.coli PLAN dc Zosyn start CFTX chk RPR D/W Briseida Kong MD Jun 19, 2016 16:40
--- NOTE | 2016-06-19 17:37 | HHI.GIFU ---
Subjective Remarks Pt sedated on the ventilator. No distress. Tolerating TF. No n/v. (An Sullivan) Objective Vitals I&O Vital Signs Date Time Temp Pulse Resp B/P Pulse Ox O2 Delivery O2 Flow Rate FiO2 06/19/16 17:03 100 35 06/19/16 16:00 99.9 112 16 120/71 100 06/19/16 13:00 35 06/19/16 12:00 35 06/19/16 12:00 99.5 109 29 109/64 98 06/19/16 11:43 99 35 06/19/16 08:29 35 06/19/16 08:29 97 35 06/19/16 08:00 99.7 111 16 115/61 100 06/19/16 08:00 35 06/19/16 06:00 109 06/19/16 04:30 100 35 06/19/16 04:00 35 06/19/16 04:00 111 06/19/16 04:00 100.7 111 16 115/61 100 06/19/16 02:00 109 06/19/16 00:00 104 06/19/16 00:00 35 06/19/16 00:00 100.3 104 16 117/68 100 06/18/16 23:54 100 35 06/18/16 22:00 99 06/18/16 20:09 100 35 06/18/16 20:00 102 06/18/16 20:00 99.6 102 25 116/65 100 06/18/16 20:00 35 06/18/16 18:00 108 I/O 06/18/16 06/18/16 06/18/16 06/19/16 06/19/16 06/19/16 07:00 15:00 23:00 07:00 15:00 23:00 Intake Total 628 ml 1665 ml 1153 ml 1097 ml 1545 ml Output Total 1100 ml 850 ml 975 ml 900 ml 900 ml Balance -472 ml 815 ml 178 ml 197 ml 645 ml Intake IV Total 628 ml 1533 ml 974 ml 781 ml 1180 ml Tube Feeding 0 ml 72 ml 179 ml 316 ml 365 ml Other 0 ml 60 ml Output Urine Total 700 ml 850 ml 950 ml 800 ml 800 ml Stool Total 400 ml 0 ml 25 ml 100 ml 100 ml Gastric Drainage Total 0 ml Laboratory Laboratory Tests Test 06/19/16 04:00 Sodium Level 145 Potassium Level 2.9 Chloride Level 111 Carbon Dioxide Level 24.3 Anion Gap 10 Blood Urea Nitrogen 9 Creatinine 0.66 Estimat Glomerular Filtration 113 Rate Random Glucose 104 Calcium Level 7.6 Total Bilirubin 0.2 Direct Bilirubin LESS THAN 0.1 Indirect Bilirubin 0.1 Aspartate Amino Transf 302 (AST/SGOT) Alanine Aminotransferase 273 (ALT/SGPT) Alkaline Phosphatase 88 Total Protein 5.7 Albumin 1.4 Date/Time Procedure Status Source Growth 06/15/16 12:40 Urine Culture - Final Complete Urine Catheterized Urine Escherichia Coli 06/15/16 12:30 Gram Stain - Final Resulted Sputum Endotracheal 06/15/16 12:30 Sputum Culture - Preliminary Resulted Staphylococcus Aureus Imaging Last Impressions Chest X-Ray 06/18/16 0000 Signed Impressions: Service Date/Time: Saturday, June 18, 2016 02:40 - CONCLUSION: Stable mild right lower lung infiltrate. Andi Luna MD Abdomen/Pelvis CT 06/17/16 0000 Signed Impressions: Service Date/Time: Friday, June 17, 2016 04:12 - CONCLUSION: 1. New bibasilar atelectasis. 2. There is some mild dilatation of the small bowel. There is a mild to moderate distention of the colon down to the rectum suggestive of a diffuse adynamic ileus. No definite mechanical obstruction is seen. 3. Otherwise, no other significant changes compared to the prior study. Andi Luna MD Abdomen X-Ray 06/16/16 0000 Signed Impressions: Service Date/Time: Thursday, June 16, 2016 17:15 - CONCLUSION: 1. Nonspecific bowel gas pattern which may represent a mild ileus or gastroenteritis. Rico Pedraza MD Brain MRI 06/15/16 0000 Signed Impressions: Service Date/Time: Wednesday, June 15, 2016 09:10 - CONCLUSION: No acute abnormality seen. 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 Reginaldo Cain MD Head Magnetic Resonance Angiography 06/14/16 0000 Signed Impressions: Service Date/Time: Tuesday, June 14, 2016 18:23 - CONCLUSION: No evidence of vessel truncation or aneurysm. Simone Graham MD Liver Ultrasound 06/13/16 0000 Signed Impressions: Service Date/Time: Monday, June 13, 2016 09:42 - CONCLUSION: 1. Small amount free fluid identified medial to the lower pole of the right kidney. 2. Slight increased hepatic echotexture suggesting some degree of fatty infiltration. 3. Please note the body and tail of the pancreas are obscured by overlying bowel gas. The head neck and uncinate process are sonographically intact. Mauro Leslie MD Head CT 06/12/16 1657 Signed Impressions: Service Date/Time: May 21:37 - CONCLUSION: Unremarkable study. Jose Martinez MD Renal Ultrasound 06/12/16 0000 Signed Impressions: Service Date/Time: May 23:51 - CONCLUSION: 1. Mild pelvocaliectasis on the right. No hydronephrosis involving either kidney. Simone Woody Jr., MD Chest CT 06/12/16 0000 Signed Impressions: Service Date/Time: May 21:39 - CONCLUSION: Right upper lobe parenchymal process may represent pneumonia, however follow up is suggested with repeat noncontrast chest CT in 2-4 weeksafter appropriate clinical therapy. Jose Martinez MD Physical Exam HEENT: Normocephalic; no jaundice. CHEST: OETT to vent. Course breath sounds. CARDIAC: RRR ABDOMEN: Soft, round, nondistended, nontender; no hepatosplenomegaly; bowel sounds are present in all four quadrants. Flexiseal with liquid stool EXTREMITIES: Generalized edema. Neuro: Sedated on vent. (An Sullivan) Assessment and Plan Plan ASSESSMENT: - Elevated LFTs, unclear etiology. On admission, she was noted to have T. Bili 0.5, AST 234, ALT 115, ALk Phosph 70 and they peaked on 06/16 at T. Bili 0.5, AST 557, ALT 225, Alk Phosph 68. It is unclear if she has any history of liver disease or if she ever abused alcohol. Liver Ultrasound (06/13/16)----> 1. Small amount free fluid identified medial to the lower pole of the right kidney. 2. Slight increased hepatic echotexture suggesting some degree of fatty infiltration. 3. Please note the body and tail of the pancreas are obscured by overlying bowel gas. The head neck and uncinate process are sonographically intact. Hepatitis panel negative. AMA pending, DONNA negativeShe does have sepsis/UTI with GNR/E.Coli and is on both Keppra and Zosyn. Liver workup- Hepatitis panel negative, DONNA negative, AMA pending, ASMA negative, AFP 4.0, ceruloplasmin 3, alpha 1 antitrypsin 256. This most likely is related to infection vs. medications. If they continue to rise, would reconsider Keppra and Zosyn. - Low Ceruloplasmin at 3. Unlikely that she has Jefferson's, will get urine copper though. - Mild ileus. Resolved. Tolerating TF. PLAN: - Okay to start TF - Continue Miralax - Continue Reglan - Urine Copper level - Supportive care - Her LFT elevation is likely is related to infection vs. medications. - If her LFTs continue to rise, consider replacing Zosyn/Keppra if possible- these seem to be slowly trending down at this point - Pt seen and examined by Dr. Jj and myself and this note is written on his behalf (An Sullivan) Physician Comments Seen and examined Agree with above Continue with current supportive care Monitor labs (Chris Jj MD) An Sullivan Jun 19, 2016 17:37 Chris Jj MD Jun 19, 2016 21:43
[2016-06-19] MEDS: cefTRIAXone INJ 2,000 MG in SODIUM CHLORIDE 0.9% INJ 100 ML IV SCH (18:17)
[2016-06-19] MEDS: FAMOTIDINE 20 MG/2 ML VIAL IV PUSH SCH (21:36)
[2016-06-20] VITALS (15 sets, daily range): BP systolic 120–127; BP diastolic 71–75; PULSE 107–121; RESP 17–29; TEMP 98.4–100.6; O2SAT 96–100
[2016-06-20] MEDS: DEXT 5%-NACL 0.9% 1000 ML INJ 1,000 ML IV SCH ×3 (00:26→20:45)
[2016-06-20] MEDS: INSULIN NovoLIN REGULAR SUPPLEMENTAL SCALE SQ SCH ×2 (03:00→08:31)
[2016-06-20] MEDS: CHLORHEXIDINE GLUCONATE 2 % 1 PACK (2 CLOTHS) TOP SCH ×2 (03:40→20:52)
[2016-06-20] MEDS: ACETAMINOPHEN 650 MG/20.3 ML UDC PO PRN ×2 (03:44→08:32)
[2016-06-20 06:22] LABS: ALKALINE PHOSPHATASE 88 U/L (45-117); TOTAL BILIRUBIN ADULT LESS THAN 0.1 MG/DL (0.2-1.0)
[2016-06-20 06:24] LABS: ALT (GPT) 212 U/L (10-53); AST (GOT) 159 U/L (15-37)
[2016-06-20] MEDS: LACTULOSE SYRUP 20 GM/30 ML CUP PO SCH ×2 (08:30→20:49)
[2016-06-20] MEDS: PREGABALIN 75 MG CAP PO SCH ×2 (08:30→20:48)
[2016-06-20] MEDS: POLYETHYLENE GLYCOL 17 GM PKG PO SCH (08:30)
[2016-06-20] MEDS: levETIRAcetam INJ 500 MG in SODIUM CHLORIDE 0.9% INJ 100 ML IV SCH ×2 (08:30→20:45)
[2016-06-20] MEDS: BACLOFEN 10 MG TAB PO SCH ×3 (08:30→17:28)
[2016-06-20] MEDS: SODIUM CHLORIDE 0.9% FLUSH 10 ML FLUSH IV FLUSH SCH ×2 (08:31→20:44)
[2016-06-20] MEDS: CHLORHEXIDINE 0.12% (ORAL KIT) 15 ML CUP MT SCH ×2 (08:31→20:51)
--- NOTE | 2016-06-20 09:53 | HHI.GIFU ---
Subjective Remarks Resting in bed. No distress. Tolerating tf. (An Sullivan) Objective Vitals I&O Vital Signs Date Time Temp Pulse Resp B/P Pulse Ox O2 Delivery O2 Flow Rate FiO2 06/20/16 09:09 100 35 06/20/16 06:00 117 06/20/16 04:19 100 35 06/20/16 04:00 112 06/20/16 04:00 35 06/20/16 04:00 112 06/20/16 04:00 99.3 112 29 127/72 98 06/20/16 04:00 99.3 112 29 127/72 98 06/20/16 01:01 100 35 06/20/16 00:00 99.3 112 29 124/74 98 06/20/16 00:00 35 06/19/16 22:49 17 06/19/16 20:22 99 35 06/19/16 20:00 99.5 112 29 127/74 98 06/19/16 20:00 35 06/19/16 17:03 100 35 06/19/16 16:00 35 06/19/16 16:00 99.9 112 16 120/71 100 06/19/16 13:00 35 06/19/16 12:00 35 06/19/16 12:00 99.5 109 29 109/64 98 06/19/16 11:43 99 35 I/O 06/19/16 06/19/16 06/19/16 06/20/16 06/20/16 06/20/16 07:00 15:00 23:00 07:00 15:00 23:00 Intake Total 1097 ml 1545 ml 1412 ml 1218 ml Output Total 900 ml 900 ml 870 ml 550 ml Balance 197 ml 645 ml 542 ml 668 ml Intake IV Total 781 ml 1180 ml 1006 ml 758 ml Tube Feeding 316 ml 365 ml 406 ml 340 ml Tube Irrigant 120 ml Output Urine Total 800 ml 800 ml 820 ml 500 ml Stool Total 100 ml 100 ml 50 ml 50 ml Laboratory Laboratory Tests Test 06/20/16 05:40 Total Bilirubin LESS THAN 0.1 Direct Bilirubin LESS THAN 0.1 Indirect Bilirubin 0.0 Aspartate Amino Transf 159 (AST/SGOT) Alanine Aminotransferase 212 (ALT/SGPT) Alkaline Phosphatase 88 Total Protein 5.6 Albumin 1.3 Date/Time Procedure Status Source Growth 06/15/16 12:40 Urine Culture - Final Complete Urine Catheterized Urine Escherichia Coli 06/15/16 12:30 Gram Stain - Final Resulted Sputum Endotracheal 06/15/16 12:30 Sputum Culture - Preliminary Resulted Staphylococcus Aureus Imaging Last Impressions Chest X-Ray 06/18/16 0000 Signed Impressions: Service Date/Time: Saturday, June 18, 2016 02:40 - CONCLUSION: Stable mild right lower lung infiltrate. Andi Luna MD Abdomen/Pelvis CT 06/17/16 0000 Signed Impressions: Service Date/Time: Friday, June 17, 2016 04:12 - CONCLUSION: 1. New bibasilar atelectasis. 2. There is some mild dilatation of the small bowel. There is a mild to moderate distention of the colon down to the rectum suggestive of a diffuse adynamic ileus. No definite mechanical obstruction is seen. 3. Otherwise, no other significant changes compared to the prior study. Andi Luna MD Abdomen X-Ray 06/16/16 0000 Signed Impressions: Service Date/Time: Thursday, June 16, 2016 17:15 - CONCLUSION: 1. Nonspecific bowel gas pattern which may represent a mild ileus or gastroenteritis. Rico Pedraza MD Brain MRI 06/15/16 0000 Signed Impressions: Service Date/Time: Wednesday, June 15, 2016 09:10 - CONCLUSION: No acute abnormality seen. 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 Reginaldo Cain MD Head Magnetic Resonance Angiography 06/14/16 0000 Signed Impressions: Service Date/Time: Tuesday, June 14, 2016 18:23 - CONCLUSION: No evidence of vessel truncation or aneurysm. Simone Graham MD Liver Ultrasound 06/13/16 0000 Signed Impressions: Service Date/Time: Monday, June 13, 2016 09:42 - CONCLUSION: 1. Small amount free fluid identified medial to the lower pole of the right kidney. 2. Slight increased hepatic echotexture suggesting some degree of fatty infiltration. 3. Please note the body and tail of the pancreas are obscured by overlying bowel gas. The head neck and uncinate process are sonographically intact. Mauro Leslie MD Head CT 06/12/16 1657 Signed Impressions: Service Date/Time: May 21:37 - CONCLUSION: Unremarkable study. Jose Martinez MD Renal Ultrasound 06/12/16 0000 Signed Impressions: Service Date/Time: May 23:51 - CONCLUSION: 1. Mild pelvocaliectasis on the right. No hydronephrosis involving either kidney. Simone Woody Jr., MD Chest CT 06/12/16 0000 Signed Impressions: Service Date/Time: May 21:39 - CONCLUSION: Right upper lobe parenchymal process may represent pneumonia, however follow up is suggested with repeat noncontrast chest CT in 2-4 weeksafter appropriate clinical therapy. Jose Martinez MD Physical Exam HEENT: Normocephalic; no jaundice. CHEST: OETT to vent. Course breath sounds. CARDIAC: RRR ABDOMEN: Soft, round, nondistended, nontender; no hepatosplenomegaly; bowel sounds are present in all four quadrants. Flexiseal with liquid stool EXTREMITIES: Generalized edema. Neuro: Sedated on vent. (An Sullivan) Assessment and Plan Plan ASSESSMENT: - Elevated LFTs, unclear etiology. On admission, she was noted to have T. Bili 0.5, AST 234, ALT 115, ALk Phosph 70 and they peaked on 06/16 at T. Bili 0.5, AST 557, ALT 225, Alk Phosph 68. It is unclear if she has any history of liver disease or if she ever abused alcohol. Liver Ultrasound (06/13/16)----> 1. Small amount free fluid identified medial to the lower pole of the right kidney. 2. Slight increased hepatic echotexture suggesting some degree of fatty infiltration. 3. Please note the body and tail of the pancreas are obscured by overlying bowel gas. The head neck and uncinate process are sonographically intact. Hepatitis panel negative. She does have sepsis/UTI with GNR/E.Coli and is on both Keppra and Zosyn. Liver workup- Hepatitis panel negative, DONNA negative, AMA pending, ASMA negative, AFP 4.0, ceruloplasmin 3, alpha 1 antitrypsin 256. 24 hour urine for copper pending. This most likely is related to infection vs. medications. If they continue to rise, would reconsider Keppra and Zosyn. However, they seem to be improving- T. Bili < 0.1, AST 159, ALT 212, Alk Phosph 88. - Low Ceruloplasmin at 3. Unlikely that she has Jefferson's- but will check urine copper- pending. - Mild ileus. Resolved. Tolerating TF. PLAN: - Okay to start TF - Continue Miralax - Continue Reglan - Await Urine Copper level - Supportive care - Her LFT elevation is likely is related to infection vs. medications. - Pt seen and examined by Dr. Jj and myself and this note is written on his behalf (An Sullivan) Physician Comments Patient seen and examined Agree with above Continue with current supportive care Monitor labs (Chris Jj MD) An Sullivan Jun 20, 2016 09:52 Chris Jj MD Jun 20, 2016 22:41
[2016-06-20 10:52] LABS: HEMATOCRIT 24.2 % (35.0-46.0); MEAN CORPUSCULAR HEMOGLOBIN 25.5 PG (27.0-34.0); MEAN CORPUSCULAR HGB CONC 31.8 % (32.0-36.0); PLATELET COUNT 62 TH/MM3 (150-450); RED BLOOD COUNT 3.02 MIL/MM3 (4.00-5.30); RED CELL DISTRIBUTION WIDTH 16.1 % (11.6-17.2)
[2016-06-20 10:55] LABS: REVIEW FLAG FINAL
[2016-06-20 11:31] LABS: ALKALINE PHOSPHATASE 96 U/L (45-117); ALT (GPT) 205 U/L (10-53); ANION GAP 7 MEQ/L (5-15); AST (GOT) 139 U/L (15-37); BICARBONATE 26.9 MEQ/L (21.0-32.0); BLOOD UREA NITROGEN 11 MG/DL (7-18); CHLORIDE 112 MEQ/L (98-107); GLOMERULAR FILTRATION RATE 171 ML/MIN (>89); POTASSIUM 3.4 MEQ/L (3.5-5.1); SODIUM (NA) 146 MEQ/L (136-145); TOTAL BILIRUBIN ADULT LESS THAN 0.1 MG/DL (0.2-1.0)
[2016-06-20] MEDS: POTASSIUM CHLOR 40 MEQ PREMIX 100 ML IV PRN (13:33)
[2016-06-20] MEDS: cefTRIAXone INJ 2,000 MG in SODIUM CHLORIDE 0.9% INJ 100 ML IV SCH (17:28)
--- NOTE | 2016-06-20 18:27 | HHI.CCPN ---
Subjective Remarks/Hospital Course 56-year-old female brought in by EMS emergently as altered mental status, hypoxia and temperature 104. Patient has a history of CVA many years ago. Per caregiver she didn't feel well since yesterday and wasn't taking any of medications including baclofen. Patient was unable to communicate due to her altered mental status. As per EMS not much history was available from the family but she has history of CVA as baseline but communicates. In the emergency department patient's oxygen saturation was low 70s upon EMS arrival. They had her on oxygen via nonrebreather and sats of 93%. GCS was 6 and she was intubated by ER attending for an airway protection. 06/13 Patient is sedated with Versed and on Bicarb drip. Renal function is improving with Cr: 2.12 from 3.19 UO: 1350ml since yesterday. Afebrile. 06/14 Patient remains sedated and intubated. Afebrile. Renal function continue to improve with Cr: 1.18 today from 1.53. 06/15 No acute events overnight. Off sedation remains intubated. Patient tolerated CPAP all day yesterday. MRA brain last night is unremarkable. T:99.9 06/16 Patient remains intubated off sedation. Afebrile. Tolerated CPAP all day yesterday remains encephalopathic. 06/17 No acute events overnight. Patient is able to open her eyes but does not follow commands. T: 100.1 last night. 06/18: Remains encephalopathic, orally intubated on mechanical ventilation. 06/19: Remains encephalopathic, orally intubated on mechanical ventilation. Daily C Pap trials ongoing. 06/20: Remains encephalopathic, orally intubated on mechanical ventilation. Daily C Pap trials. Tube feeds resumed. Objective Vital Signs Date Time Temp Pulse Resp B/P Pulse Ox O2 Delivery O2 Flow Rate FiO2 06/20/16 16:00 35 06/20/16 16:00 98.4 112 28 122/73 98 Intake and Output 06/19/16 06/19/16 06/20/16 08:00 16:00 00:00 Intake Total 1097 ml 1545 ml 1412 ml Output Total 900 ml 900 ml 870 ml Balance 197 ml 645 ml 542 ml Result Diagram: 06/20/1681406/20/16814 Imaging Last Impressions Abdomen/Pelvis CT 06/17/16 0000 Signed Impressions: Service Date/Time: Friday, June 17, 2016 04:12 - CONCLUSION: 1. New bibasilar atelectasis. 2. There is some mild dilatation of the small bowel. There is a mild to moderate distention of the colon down to the rectum suggestive of a diffuse adynamic ileus. No definite mechanical obstruction is seen. 3. Otherwise, no other significant changes compared to the prior study. Andi Luna MD Chest X-Ray 06/16/16 Signed Impressions: Service Date/Time: Thursday, June 16, 2016 04:51 - CONCLUSION: Right basilar density likely atelectasis.. Chadd Kahn MD Abdomen X-Ray 06/16/16 Signed Impressions: Service Date/Time: Thursday, June 16, 2016 17:15 - CONCLUSION: 1. Nonspecific bowel gas pattern which may represent a mild ileus or gastroenteritis. Rico Pedraza MD Brain MRI 06/15/16 Signed Impressions: Service Date/Time: Wednesday, June 15, 2016 09:10 - CONCLUSION: No acute abnormality seen. 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 Reginaldo Cain MD Head Magnetic Resonance Angiography 06/14/16 Signed Impressions: Service Date/Time: Tuesday, June 14, 2016 18:23 - CONCLUSION: No evidence of vessel truncation or aneurysm. Simone Graham MD Liver Ultrasound 06/13/16 Signed Impressions: Service Date/Time: Monday, June 13, 2016 09:42 - CONCLUSION: 1. Small amount free fluid identified medial to the lower pole of the right kidney. 2. Slight increased hepatic echotexture suggesting some degree of fatty infiltration. 3. Please note the body and tail of the pancreas are obscured by overlying bowel gas. The head neck and uncinate process are sonographically intact. Mauro Leslie MD Head CT 06/12/16 2730 Signed Impressions: Service Date/Time: May 21:37 - CONCLUSION: Unremarkable study. Jose Martinez MD Renal Ultrasound 06/12/16 0000 Signed Impressions: Service Date/Time: May 23:51 - CONCLUSION: 1. Mild pelvocaliectasis on the right. No hydronephrosis involving either kidney. Simone Woody Jr., MD Chest CT 06/12/16 0000 Signed Impressions: Service Date/Time: May 21:39 - CONCLUSION: Right upper lobe parenchymal process may represent pneumonia, however follow up is suggested with repeat noncontrast chest CT in 2-4 weeksafter appropriate clinical therapy. Jose Martinez MD Objective Remarks GENERAL: Elderly woman sedated and intubated SKIN: Warm and dry. HEAD: Normocephalic. EYES: No scleral icterus. No injection or drainage. NECK: Supple, trachea midline. No JVD or lymphadenopathy. CARDIOVASCULAR: Regular rate and rhythm without murmurs, gallops, or rubs. RESPIRATORY: Breath sounds equal bilaterally. No accessory muscle use. GASTROINTESTINAL: Abdomen soft, non-tender, nondistended. MUSCULOSKELETAL: No cyanosis, or edema. EXTREMITIES: No clubbing cyanosis or edema Neuro: Remains encephalopathic off sedation, orally intubated on mechanical ventilation A/P Assessment and Plan Acute respiratory failure on mechanical ventilation Encephalopathy SIRS/sepsis Acute kidney injury Rhabdo Hypernatremia Hypokalemia Anemia Lactic acidemia Leukocytosis- resolved Elevated LFT UTI Plan Neuro: Off sedation. Monitor neuro status and avoid sedatives. Ammonia level: 40, TSH 2.5. Continue with Lactulose. CT brain: No acute findings. UDS+ +Benzos MRA brain 06/14- Unremarkable. s/p LP showed clear CSF and 15 WBC. EEG: Bihemispheric slowing, small sharp waves b/l neuro is following- Dr. Boggs, On Keppra 500mg Q12 Pulm: Continue with vent support keep sat >92% Bronchodilators, ICU vent bundle. SBT trials as cherie CV: Monitor HR and BP keep MAP>65mmHg. Lactic acid trending down. : Monitor renal function, I/O's, avoid nephrotoxins. Electrolytes replacement per protocol. Renal US: No hydronephrosis. Renal is following- Dr. Corral IVF D5NS@100ml/hr monitor Sodium level and CK's. GI: On Pepcid 20meq IV qhs, tube feeds on hold (Glucerna 1.5 with goal rate 45ml /hr) Monitor LFT's ( trending down), US liver: Fatty liver, GI is following. CT abdomen/pelvis last night- findings suggestive of adynamic ileus. No mechanical obstruction. On Reglan 5mg Iv q8 PRN, Miralax, Lactulose ID: Continue abx per ID (Zyvox,Zosyn)monitor for signs of infections ( Fever, WBC) Patient was given Vanco, Zosyn, Zithromax in ED. 06/12 Urine cx: E.coli 06/12 BC: No growth 06/12 CSG: NGTD 06/15 urine: GNR, sputum: Staph Aureus Heme: Monitor CBC, coags, Hep plt ab negative. Thrombocytopenia likely 2nd sepsis Endo: SSI for glycemic control, TSH level: 2.5 GI Prophylaxis with Pepcid DVT prophylaxis with SCD, not on AC prophylaxis 2nd to thrombocytopenia Time spent on critical care excluding procedures 30 minutes Michael Torre MD Jun 20, 2016 18:27
[2016-06-20] MEDS ORDERED: ALTEPLASE RECOMBINANT 2 MG VIAL OTHER ONE (18:30)
--- NOTE | 2016-06-20 19:42 | HHI.IDPN ---
Subjective Subjective Remarks again low grade fever up to 100 not following commands, but tracks intermittently cont to have liquid stool, but tolerates TF at goal not much secretions Antibiotics CFTX Past Medical History Reviewed Allergies: Coded Allergies: DO NOT USE (Verified Allergy, Mild, Hallucinations, 06/12/16) Objective . Vital Signs Date Time Temp Pulse Resp B/P Pulse Ox O2 Delivery O2 Flow Rate FiO2 06/20/16 16:00 35 06/20/16 16:00 98.4 112 28 122/73 98 06/20/16 15:55 96 35 06/20/16 12:48 35 06/20/16 12:47 96 35 06/20/16 12:00 99.0 112 18 120/75 99 06/20/16 12:00 35 06/20/16 11:55 96 35 06/20/16 09:09 100 35 06/20/16 08:00 35 06/20/16 08:00 100.0 107 17 125/74 100 06/20/16 06:00 117 06/20/16 04:19 100 35 06/20/16 04:00 112 06/20/16 04:00 35 06/20/16 04:00 112 06/20/16 04:00 99.3 112 29 127/72 98 06/20/16 04:00 99.3 112 29 127/72 98 06/20/16 01:01 100 35 06/20/16 00:00 99.3 112 29 124/74 98 06/20/16 00:00 35 06/19/16 22:49 17 06/19/16 20:22 99 35 06/19/16 20:00 99.5 112 29 127/74 98 06/19/16 20:00 35 06/19/16 06/19/16 06/20/16 15:00 23:00 07:00 Intake Total 1545 ml 1412 ml 1218 ml Output Total 900 ml 870 ml 550 ml Balance 645 ml 542 ml 668 ml Intake IV Total 1180 ml 1006 ml 758 ml Tube Feeding 365 ml 406 ml 340 ml Tube Irrigant 120 ml Output Urine Total 800 ml 820 ml 500 ml Stool Total 100 ml 50 ml 50 ml . Laboratory Tests Test 06/20/16 08:15 White Blood Count 6.0 TH/MM3 Red Blood Count 3.02 MIL/MM3 Hemoglobin 7.7 GM/DL Hematocrit 24.2 % Mean Corpuscular Volume 80.0 FL Mean Corpuscular Hemoglobin 25.5 PG Mean Corpuscular Hemoglobin 31.8 % Concent Red Cell Distribution Width 16.1 % Platelet Count 62 TH/MM3 Mean Platelet Volume 10.1 FL Laboratory Tests Test 06/19/16 06/20/16 06/20/16 04:00 05:40 08:15 Sodium Level 145 MEQ/L 146 MEQ/L Potassium Level 2.9 MEQ/L 3.4 MEQ/L Chloride Level 111 MEQ/L 112 MEQ/L Carbon Dioxide Level 24.3 MEQ/L 26.9 MEQ/L Anion Gap 10 MEQ/L 7 MEQ/L Blood Urea Nitrogen 9 MG/DL 11 MG/DL Creatinine 0.66 MG/DL 0.46 MG/DL Estimat Glomerular Filtration 113 ML/MIN 171 ML/MIN Rate Random Glucose 104 MG/DL 118 MG/DL Calcium Level 7.6 MG/DL 7.9 MG/DL Total Bilirubin 0.2 MG/DL LESS THAN 0.1 LESS THAN 0.1 MG/DL MG/DL Direct Bilirubin LESS THAN 0.1 LESS THAN 0.1 MG/DL MG/DL Indirect Bilirubin 0.1 MG/DL 0.0 MG/DL Aspartate Amino Transf 302 U/L 159 U/L 139 U/L (AST/SGOT) Alanine Aminotransferase 273 U/L 212 U/L 205 U/L (ALT/SGPT) Alkaline Phosphatase 88 U/L 88 U/L 96 U/L Total Protein 5.7 GM/DL 5.6 GM/DL 5.7 GM/DL Albumin 1.4 GM/DL 1.3 GM/DL 1.3 GM/DL Imaging Last Impressions Chest X-Ray 06/18/16 0000 Signed Impressions: Service Date/Time: Saturday, June 18, 2016 02:40 - CONCLUSION: Stable mild right lower lung infiltrate. Andi Luna MD Abdomen/Pelvis CT 06/17/16 0000 Signed Impressions: Service Date/Time: Friday, June 17, 2016 04:12 - CONCLUSION: 1. New bibasilar atelectasis. 2. There is some mild dilatation of the small bowel. There is a mild to moderate distention of the colon down to the rectum suggestive of a diffuse adynamic ileus. No definite mechanical obstruction is seen. 3. Otherwise, no other significant changes compared to the prior study. Andi Luna MD Abdomen X-Ray 06/16/16 Signed Impressions: Service Date/Time: Thursday, June 16, 2016 17:15 - CONCLUSION: 1. Nonspecific bowel gas pattern which may represent a mild ileus or gastroenteritis. Rico Pedraza MD Brain MRI 06/15/16 Signed Impressions: Service Date/Time: Wednesday, June 15, 2016 09:10 - CONCLUSION: No acute abnormality seen. 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 Reginaldo Cain MD Head Magnetic Resonance Angiography 06/14/16 Signed Impressions: Service Date/Time: Tuesday, June 14, 2016 18:23 - CONCLUSION: No evidence of vessel truncation or aneurysm. Simone Graham MD Liver Ultrasound 06/13/16 Signed Impressions: Service Date/Time: Monday, June 13, 2016 09:42 - CONCLUSION: 1. Small amount free fluid identified medial to the lower pole of the right kidney. 2. Slight increased hepatic echotexture suggesting some degree of fatty infiltration. 3. Please note the body and tail of the pancreas are obscured by overlying bowel gas. The head neck and uncinate process are sonographically intact. Mauro Leslie MD Head CT 06/12/161656 Signed Impressions: Service Date/Time: May 21:37 - CONCLUSION: Unremarkable study. Jose Martinez MD Renal Ultrasound 06/12/16 Signed Impressions: Service Date/Time: May 23:51 - CONCLUSION: 1. Mild pelvocaliectasis on the right. No hydronephrosis involving either kidney. Simone Woody Jr., MD Chest CT 06/12/16 Signed Impressions: Service Date/Time: May 21:39 - CONCLUSION: Right upper lobe parenchymal process may represent pneumonia, however follow up is suggested with repeat noncontrast chest CT in 2-4 weeksafter appropriate clinical therapy. Jose Martinez MD Physical Exam GENERAL: on the vent, NAD SKIN: No jaundice, rashes, or lesions. Cool and dry HEAD: Atraumatic. Normocephalic. EYES: Pupils equal and round and reactive. No scleral icterus. No injection or drainage. ENT: Nose without bleeding or purulent drainage. Orally intubated NCARDIOVASCULAR: Regular rate and rhythm without murmurs, gallops, or rubs. No JVD. Peripheral pulses symmetric. RESPIRATORY/CHEST: Bilateral diffuse coarse rhonchi GASTROINTESTINAL: Abdomen soft, no reaction to palpation, minimally distended. No guarding. Bowel sounds present. Incontinent of liquid brown stool GENITOURINARY: Cortes catheter in place with clear yellow urine MUSCULOSKELETAL: Extremities without clubbing, cyanosis, + small amount of edema. No mottling or clubbing. NEUROLOGICAL: off sedation since 06/15: opens eyes to voice , not following commands; tracks inconsistently PSYCHIATRIC: unable to assess LINE no evidence of infection : Cortes in place urine looks clear Assessment & Plan Remarks Sepsis (fever, hypoxi, leukocytosis, lactic acidosis, multi organ function) - ? source not clear, has E coli in UC but her UA is unremarkable - CT with RUL infiltrate, ?PNA - growing Staph aureus, MSSA Lymphocytic pleocytosis in CSF - C/S negative - VRDF negative, RPR neg - all clx are negative ARF/CKD, creatinine now normal Respiratory failure Leukocytosis, Worsening lactic acidosis ? ischemic bowel Diarrhea, no e/o C.diff UTI, E.coli Persistent lactic acidosis PLAN cont CFTX for E.coli UTI and PNA D/W Briseida Kong MD Jun 20, 2016 19:42
[2016-06-20] MEDS: FAMOTIDINE 20 MG/2 ML VIAL IV PUSH SCH (20:44)
[2016-06-21] VITALS (18 sets, daily range): BP systolic 112–150; BP diastolic 67–76; PULSE 70–118; RESP 16–24; TEMP 97.8–100.3; O2SAT 95–100
[2016-06-21] MEDS: ACETAMINOPHEN 650 MG/20.3 ML UDC PO PRN (01:17)
[2016-06-21 04:54] LABS: AUTOMATED NEUTROPHIL # 5.3 TH/MM3 (1.8-7.7); BASOPHIL % 0.2 % (0.0-2.0); EOSINOPHIL % 0.3 % (0.0-4.0); HEMATOCRIT 23.8 % (35.0-46.0); LYMPH % 13.3 % (9.0-44.0); LYMPHOCYTE # 0.8 TH/MM3 (1.0-4.8); MEAN CELL VOLUME 79.9 FL (80.0-100.0); MEAN CORPUSCULAR HEMOGLOBIN 26.4 PG (27.0-34.0); MONO % 3.2 % (0.0-8.0); PLATELET COUNT 48 TH/MM3 (150-450); RED BLOOD COUNT 2.97 MIL/MM3 (4.00-5.30); RED CELL DISTRIBUTION WIDTH 16.7 % (11.6-17.2); WHITE BLOOD COUNT 6.3 TH/MM3 (4.0-11.0)
[2016-06-21 04:58] LABS: HEMO FLAGS AUTO DIFF
[2016-06-21 05:16] LABS: ALKALINE PHOSPHATASE 111 U/L (45-117); ALT (GPT) 195 U/L (10-53); ANION GAP 7 MEQ/L (5-15); AST (GOT) 118 U/L (15-37); BICARBONATE 27.5 MEQ/L (21.0-32.0); BLOOD UREA NITROGEN 11 MG/DL (7-18); CHLORIDE 113 MEQ/L (98-107); GLOMERULAR FILTRATION RATE 162 ML/MIN (>89); POTASSIUM 3.6 MEQ/L (3.5-5.1); SODIUM (NA) 147 MEQ/L (136-145); TOTAL BILIRUBIN ADULT 0.1 MG/DL (0.2-1.0)
[2016-06-21] MEDS: DEXT 5%-NACL 0.9% 1000 ML INJ 1,000 ML IV SCH ×3 (06:07→20:05)
[2016-06-21] MEDS: PREGABALIN 75 MG CAP PO SCH ×2 (08:51→20:08)
[2016-06-21] MEDS: BACLOFEN 10 MG TAB PO SCH ×3 (08:51→17:23)
[2016-06-21] MEDS: LACTULOSE SYRUP 20 GM/30 ML CUP PO SCH ×2 (08:51→20:08)
[2016-06-21] MEDS: POLYETHYLENE GLYCOL 17 GM PKG PO SCH (08:51)
[2016-06-21] MEDS: levETIRAcetam INJ 500 MG in SODIUM CHLORIDE 0.9% INJ 100 ML IV SCH ×2 (09:00→20:06)
[2016-06-21] MEDS: SODIUM CHLORIDE 0.9% FLUSH 10 ML FLUSH IV FLUSH SCH ×2 (09:00→20:07)
[2016-06-21] MEDS: CHLORHEXIDINE 0.12% (ORAL KIT) 15 ML CUP MT SCH ×2 (09:10→20:05)
[2016-06-21 11:03] LABS: BANDS 8 % (0-6); BLASTS 1 % (0-0); METAMYELOCYTES 1 % (0-1); NEUTROPHIL # MANUAL DIFF 5.1 TH/MM3 (1.8-7.7); PLATELET ESTIMATE SMEAR LOW (NORMAL); PLATELET MORPHOLOGY ENLARGED (NORMAL); POLYS (SEG NEUTROPHILS) 72 % (16-70); SCAN/DIFF FINAL DIFF MANUAL; TOXIC GRANULATION 2+ (NORMAL); WBC DIFF SAMPLE 100
--- NOTE | 2016-06-21 13:51 | HHI.CCPN ---
Subjective Remarks/Hospital Course 56-year-old female brought in by EMS emergently as altered mental status, hypoxia and temperature 104. Patient has a history of CVA many years ago. Per caregiver she didn't feel well since yesterday and wasn't taking any of medications including baclofen. Patient was unable to communicate due to her altered mental status. As per EMS not much history was available from the family but she has history of CVA as baseline but communicates. In the emergency department patient's oxygen saturation was low 70s upon EMS arrival. They had her on oxygen via nonrebreather and sats of 93%. GCS was 6 and she was intubated by ER attending for an airway protection. 06/13 Patient is sedated with Versed and on Bicarb drip. Renal function is improving with Cr: 2.12 from 3.19 UO: 1350ml since yesterday. Afebrile. 06/14 Patient remains sedated and intubated. Afebrile. Renal function continue to improve with Cr: 1.18 today from 1.53. 06/15 No acute events overnight. Off sedation remains intubated. Patient tolerated CPAP all day yesterday. MRA brain last night is unremarkable. T:99.9 06/16 Patient remains intubated off sedation. Afebrile. Tolerated CPAP all day yesterday remains encephalopathic. 06/17 No acute events overnight. Patient is able to open her eyes but does not follow commands. T: 100.1 last night. 06/18: Remains encephalopathic, orally intubated on mechanical ventilation. 06/19: Remains encephalopathic, orally intubated on mechanical ventilation. Daily C Pap trials ongoing. 06/20: Remains encephalopathic, orally intubated on mechanical ventilation. Daily C Pap trials. Tube feeds resumed. 06/21: More awake however not following commands. Remains orally intubated on mechanical ventilation. Tolerating tube feeds. Daily C Pap trials ongoing. Objective Vital Signs Date Time Temp Pulse Resp B/P Pulse Ox O2 Delivery O2 Flow Rate FiO2 06/21/16 11:54 100 35 06/21/16 10:00 70 06/21/16 08:00 97.8 24 112/67 Intake and Output 06/20/16 06/20/16 06/21/16 08:00 16:00 00:00 Intake Total 1218 ml 1390 ml 1328 ml Output Total 550 ml 725 ml 930 ml Balance 668 ml 665 ml 398 ml Result Diagram: 06/21/16 0243 06/21/16 0243 Imaging Last Impressions Abdomen/Pelvis CT 06/17/16 0000 Signed Impressions: Service Date/Time: Friday, June 17, 2016 04:12 - CONCLUSION: 1. New bibasilar atelectasis. 2. There is some mild dilatation of the small bowel. There is a mild to moderate distention of the colon down to the rectum suggestive of a diffuse adynamic ileus. No definite mechanical obstruction is seen. 3. Otherwise, no other significant changes compared to the prior study. Andi Luna MD Chest X-Ray 06/16/16 0000 Signed Impressions: Service Date/Time: Thursday, June 16, 2016 04:51 - CONCLUSION: Right basilar density likely atelectasis.. Chadd Kahn MD Abdomen X-Ray 06/16/16 0000 Signed Impressions: Service Date/Time: Thursday, June 16, 2016 17:15 - CONCLUSION: 1. Nonspecific bowel gas pattern which may represent a mild ileus or gastroenteritis. Rico Pedraza MD Brain MRI 06/15/16 0000 Signed Impressions: Service Date/Time: Wednesday, June 15, 2016 09:10 - CONCLUSION: No acute abnormality seen. 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 Reginaldo Cain MD Head Magnetic Resonance Angiography 06/14/16 0000 Signed Impressions: Service Date/Time: Tuesday, June 14, 2016 18:23 - CONCLUSION: No evidence of vessel truncation or aneurysm. Simone Graham MD Liver Ultrasound 06/13/16 0000 Signed Impressions: Service Date/Time: Monday, June 13, 2016 09:42 - CONCLUSION: 1. Small amount free fluid identified medial to the lower pole of the right kidney. 2. Slight increased hepatic echotexture suggesting some degree of fatty infiltration. 3. Please note the body and tail of the pancreas are obscured by overlying bowel gas. The head neck and uncinate process are sonographically intact. Mauro Leslie MD Head CT 06/12/16 9203 Signed Impressions: Service Date/Time: May 21:37 - CONCLUSION: Unremarkable study. Jose Martinez MD Renal Ultrasound 06/12/16 0000 Signed Impressions: Service Date/Time: May 23:51 - CONCLUSION: 1. Mild pelvocaliectasis on the right. No hydronephrosis involving either kidney. Simone Woody Jr., MD Chest CT 06/12/16 0000 Signed Impressions: Service Date/Time: May 21:39 - CONCLUSION: Right upper lobe parenchymal process may represent pneumonia, however follow up is suggested with repeat noncontrast chest CT in 2-4 weeksafter appropriate clinical therapy. Jose Martinez MD Objective Remarks GENERAL: Elderly woman sedated and intubated SKIN: Warm and dry. HEAD: Normocephalic. EYES: No scleral icterus. No injection or drainage. NECK: Supple, trachea midline. No JVD or lymphadenopathy. CARDIOVASCULAR: Regular rate and rhythm without murmurs, gallops, or rubs. RESPIRATORY: Breath sounds equal bilaterally. No accessory muscle use. GASTROINTESTINAL: Abdomen soft, non-tender, nondistended. MUSCULOSKELETAL: No cyanosis, or edema. EXTREMITIES: No clubbing cyanosis or edema Neuro: Remains encephalopathic off sedation, orally intubated on mechanical ventilation A/P Assessment and Plan Acute respiratory failure on mechanical ventilation Encephalopathy SIRS/sepsis Acute kidney injury Rhabdo Hypernatremia Hypokalemia Anemia Lactic acidemia Leukocytosis- resolved Elevated LFT UTI Plan Neuro: Off sedation. Monitor neuro status and avoid sedatives. Ammonia level: 40, TSH 2.5. Continue with Lactulose. CT brain: No acute findings. UDS+ +Benzos MRA brain 06/14- Unremarkable. s/p LP showed clear CSF and 15 WBC. EEG: Bihemispheric slowing, small sharp waves b/l neuro is following- Dr. Boggs, On Keppra 500mg Q12 Pulm: Continue with vent support keep sat >92% Bronchodilators, ICU vent bundle. SBT trials as cherie CV: Monitor HR and BP keep MAP>65mmHg. Lactic acid trending down. : Monitor renal function, I/O's, avoid nephrotoxins. Electrolytes replacement per protocol. Renal US: No hydronephrosis. Renal is following- Dr. Corral IVF D5NS@100ml/hr monitor Sodium level and CK's. GI: On Pepcid 20meq IV qhs, tube feeds on hold (Glucerna 1.5 with goal rate 45ml /hr) Monitor LFT's ( trending down), US liver: Fatty liver, GI is following. CT abdomen/pelvis last night- findings suggestive of adynamic ileus. No mechanical obstruction. On Reglan 5mg Iv q8 PRN, Miralax, Lactulose ID: Continue abx per ID (Zyvox,Zosyn)monitor for signs of infections ( Fever, WBC) Patient was given Vanco, Zosyn, Zithromax in ED. 06/12 Urine cx: E.coli 06/12 BC: No growth 06/12 CSG: NGTD 06/15 urine: GNR, sputum: Staph Aureus Heme: Monitor CBC, coags, Hep plt ab negative. Thrombocytopenia likely 2nd sepsis Endo: SSI for glycemic control, TSH level: 2.5 GI Prophylaxis with Pepcid DVT prophylaxis with SCD, not on AC prophylaxis 2nd to thrombocytopenia Time spent on critical care excluding procedures 30 minutes Michael Torre MD Jun 21, 2016 13:50
[2016-06-21] MEDS: cefTRIAXone INJ 2,000 MG in SODIUM CHLORIDE 0.9% INJ 100 ML IV SCH (17:23)
[2016-06-21] MEDS: FAMOTIDINE 20 MG/2 ML VIAL IV PUSH SCH (20:07)
[2016-06-21] MEDS: CHLORHEXIDINE GLUCONATE 2 % 1 PACK (2 CLOTHS) TOP SCH (20:56)
--- NOTE | 2016-06-21 23:36 | HHI.GIFU ---
Subjective Remarks Comfortable in bed in no acute distress Objective Vitals I&O Vital Signs Date Time Temp Pulse Resp B/P Pulse Ox O2 Delivery O2 Flow Rate FiO2 06/21/16 22:00 118 06/21/16 20:00 35 06/21/16 20:00 115 06/21/16 20:00 99.5 115 24 133/76 95 06/21/16 19:36 99 35 06/21/16 18:00 70 06/21/16 16:00 98.4 116 18 139/75 96 06/21/16 16:00 35 06/21/16 16:00 70 06/21/16 15:58 99 35 06/21/16 14:00 70 06/21/16 12:00 35 06/21/16 12:00 98.1 111 20 150/72 96 06/21/16 12:00 70 06/21/16 11:54 100 35 06/21/16 10:00 70 06/21/16 08:00 97.8 86 24 112/67 06/21/16 08:00 70 06/21/16 08:00 35 06/21/16 06:00 114 06/21/16 04:31 100 35 06/21/16 04:00 109 06/21/16 04:00 35 06/21/16 04:00 99.8 109 22 126/75 100 06/21/16 02:18 18 06/21/16 02:00 114 06/21/16 00:48 99 35 06/21/16 00:00 115 06/21/16 00:00 35 06/21/16 00:00 100.3 115 16 120/70 100 I/O 06/20/16 06/20/16 06/20/16 06/21/16 06/21/16 06/21/16 07:00 15:00 23:00 07:00 15:00 23:00 Intake Total 1218 ml 1390 ml 1328 ml 1001 ml 1376 ml 1279 ml Output Total 550 ml 725 ml 930 ml 1240 ml 1500 ml 500 ml Balance 668 ml 665 ml 398 ml -239 ml -124 ml 779 ml Intake IV Total 758 ml 935 ml 870 ml 652 ml 738 ml 879 ml Tube Feeding 340 ml 335 ml 358 ml 289 ml 438 ml 350 ml Tube Irrigant 120 ml 120 ml 100 ml 60 ml 50 ml Other 200 ml Output Urine Total 500 ml 650 ml 430 ml 680 ml 1300 ml 400 ml Stool Total 50 ml 75 ml 500 ml 560 ml 200 ml 100 ml Laboratory Laboratory Tests Test 06/21/16 02:43 White Blood Count 6.3 Red Blood Count 2.97 Hemoglobin 7.8 Hematocrit 23.8 Mean Corpuscular Volume 79.9 Mean Corpuscular Hemoglobin 26.4 Mean Corpuscular Hemoglobin 33.0 Concent Red Cell Distribution Width 16.7 Platelet Count 48 Mean Platelet Volume 10.6 Neutrophils (%) (Auto) 83.0 Lymphocytes (%) (Auto) 13.3 Monocytes (%) (Auto) 3.2 Eosinophils (%) (Auto) 0.3 Basophils (%) (Auto) 0.2 Neutrophils # (Auto) 5.3 Lymphocytes # (Auto) 0.8 Monocytes # (Auto) 0.2 Eosinophils # (Auto) 0.0 Basophils # (Auto) 0.0 CBC Comment AUTO DIFF Differential Total Cells 100 Counted Neutrophils % (Manual) 72 Band Neutrophils % 8 Lymphocytes % 17 Monocytes % 1 Neutrophils # (Manual) 5.1 Metamyelocytes 1 Differential Comment FINAL DIFF MANUAL Blastocytes 1 Toxic Granulation 2+ Platelet Estimate LOW Platelet Morphology Comment ENLARGED Sodium Level 147 Potassium Level 3.6 Chloride Level 113 Carbon Dioxide Level 27.5 Anion Gap 7 Blood Urea Nitrogen 11 Creatinine 0.48 Estimat Glomerular Filtration 162 Rate Random Glucose 113 Calcium Level 7.8 Total Bilirubin 0.1 Aspartate Amino Transf 118 (AST/SGOT) Alanine Aminotransferase 195 (ALT/SGPT) Alkaline Phosphatase 111 Total Protein 5.9 Albumin 1.4 Physical Exam HEENT: Normocephalic; no jaundice. CHEST: OETT to vent. Course breath sounds. CARDIAC: RRR ABDOMEN: Soft, round, nondistended, nontender; no hepatosplenomegaly; bowel sounds are present in all four quadrants. Flexiseal with liquid stool EXTREMITIES: Generalized edema. Neuro: Sedated on vent. Assessment and Plan Plan ASSESSMENT: - Elevated LFTs, unclear etiology. On admission, she was noted to have T. Bili 0.5, AST 234, ALT 115, ALk Phosph 70 and they peaked on 06/16 at T. Bili 0.5, AST 557, ALT 225, Alk Phosph 68. It is unclear if she has any history of liver disease or if she ever abused alcohol. Liver Ultrasound (06/13/16)----> 1. Small amount free fluid identified medial to the lower pole of the right kidney. 2. Slight increased hepatic echotexture suggesting some degree of fatty infiltration. 3. Please note the body and tail of the pancreas are obscured by overlying bowel gas. The head neck and uncinate process are sonographically intact. Hepatitis panel negative. She does have sepsis/UTI with GNR/E.Coli and is on both Keppra and Zosyn. Liver workup- Hepatitis panel negative, DONNA negative, AMA pending, ASMA negative, AFP 4.0, ceruloplasmin 3, alpha 1 antitrypsin 256. 24 hour urine for copper pending. This most likely is related to infection vs. medications. If they continue to rise, would reconsider Keppra and Zosyn. However, they seem to be improving- T. Bili < 0.1, AST 159, ALT 212, Alk Phosph 88. - Low Ceruloplasmin at 3. Unlikely that she has Jefferson's- but will check urine copper- pending. - Mild ileus. Resolved. Tolerating TF. PLAN: -LFTs continue to resolve and so this is most likely related to infection - Continue Miralax - Continue Reglan - Await Urine Copper level - Supportive care -Not much to add from a GI standpoint please reconsult as necessary or if urine copper is noted to be abnormal We will sign off Chris Jj MD Jun 21, 2016 23:36
[2016-06-22] VITALS (17 sets, daily range): BP systolic 130–144; BP diastolic 70–81; PULSE 108–118; RESP 20–24; TEMP 98.5–99.8; O2SAT 96–100
[2016-06-22] MEDS: CHLORHEXIDINE 0.12% (ORAL KIT) 15 ML CUP MT SCH ×2 (08:00→20:00)
[2016-06-22] MEDS: LACTULOSE SYRUP 20 GM/30 ML CUP PO SCH ×2 (08:09→21:11)
[2016-06-22] MEDS: POLYETHYLENE GLYCOL 17 GM PKG PO SCH (08:09)
[2016-06-22] MEDS: levETIRAcetam INJ 500 MG in SODIUM CHLORIDE 0.9% INJ 100 ML IV SCH ×2 (08:09→21:11)
[2016-06-22] MEDS: PREGABALIN 75 MG CAP PO SCH ×2 (08:09→21:12)
[2016-06-22] MEDS: BACLOFEN 10 MG TAB PO SCH ×3 (08:10→16:58)
[2016-06-22] MEDS: SODIUM CHLORIDE 0.9% FLUSH 10 ML FLUSH IV FLUSH SCH ×2 (09:00→21:12)
[2016-06-22] MEDS: DEXT 5%-NACL 0.9% 1000 ML INJ 1,000 ML IV SCH ×2 (12:26→21:18)
[2016-06-22] MEDS: cefTRIAXone INJ 2,000 MG in SODIUM CHLORIDE 0.9% INJ 100 ML IV SCH (16:58)
--- NOTE | 2016-06-22 17:20 | HHI.CCPN ---
Subjective Remarks/Hospital Course 56-year-old female brought in by EMS emergently as altered mental status, hypoxia and temperature 104. Patient has a history of CVA many years ago. Per caregiver she didn't feel well since yesterday and wasn't taking any of medications including baclofen. Patient was unable to communicate due to her altered mental status. As per EMS not much history was available from the family but she has history of CVA as baseline but communicates. In the emergency department patient's oxygen saturation was low 70s upon EMS arrival. They had her on oxygen via nonrebreather and sats of 93%. GCS was 6 and she was intubated by ER attending for an airway protection. 06/13 Patient is sedated with Versed and on Bicarb drip. Renal function is improving with Cr: 2.12 from 3.19 UO: 1350ml since yesterday. Afebrile. 06/14 Patient remains sedated and intubated. Afebrile. Renal function continue to improve with Cr: 1.18 today from 1.53. 06/15 No acute events overnight. Off sedation remains intubated. Patient tolerated CPAP all day yesterday. MRA brain last night is unremarkable. T:99.9 06/16 Patient remains intubated off sedation. Afebrile. Tolerated CPAP all day yesterday remains encephalopathic. 06/17 No acute events overnight. Patient is able to open her eyes but does not follow commands. T: 100.1 last night. 06/18: Remains encephalopathic, orally intubated on mechanical ventilation. 06/19: Remains encephalopathic, orally intubated on mechanical ventilation. Daily C Pap trials ongoing. 06/20: Remains encephalopathic, orally intubated on mechanical ventilation. Daily C Pap trials. Tube feeds resumed. 06/21: More awake however not following commands. Remains orally intubated on mechanical ventilation. Tolerating tube feeds. Daily C Pap trials ongoing. 06/22: Encephalopathic though more awake, arousable. Not following commands. Remains orally intubated on mechanical ventilation. Tolerating tube feeds. Daily C Pap trials. Objective Vital Signs Date Time Temp Pulse Resp B/P Pulse Ox O2 Delivery O2 Flow Rate FiO2 06/22/16 16:00 112 06/22/16 16:00 35 06/22/16 16:00 99.8 22 144/75 96 Intake and Output 06/21/16 06/21/16 06/22/16 08:00 16:00 00:00 Intake Total 1001 ml 1376 ml 1279 ml Output Total 1240 ml 1500 ml 500 ml Balance -239 ml -124 ml 779 ml Result Diagram: 06/21/16 0243 06/21/16 0243 Imaging Last Impressions Abdomen/Pelvis CT 06/17/16 0000 Signed Impressions: Service Date/Time: Friday, June 17, 2016 04:12 - CONCLUSION: 1. New bibasilar atelectasis. 2. There is some mild dilatation of the small bowel. There is a mild to moderate distention of the colon down to the rectum suggestive of a diffuse adynamic ileus. No definite mechanical obstruction is seen. 3. Otherwise, no other significant changes compared to the prior study. Andi Luna MD Chest X-Ray 06/16/16 0000 Signed Impressions: Service Date/Time: Thursday, June 16, 2016 04:51 - CONCLUSION: Right basilar density likely atelectasis.. Chadd Kahn MD Abdomen X-Ray 06/16/16 0000 Signed Impressions: Service Date/Time: Thursday, June 16, 2016 17:15 - CONCLUSION: 1. Nonspecific bowel gas pattern which may represent a mild ileus or gastroenteritis. Rico Pedraza MD Brain MRI 06/15/16 0000 Signed Impressions: Service Date/Time: Wednesday, June 15, 2016 09:10 - CONCLUSION: No acute abnormality seen. 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 Reginaldo Cain MD Head Magnetic Resonance Angiography 06/14/16 0000 Signed Impressions: Service Date/Time: Tuesday, June 14, 2016 18:23 - CONCLUSION: No evidence of vessel truncation or aneurysm. Simone Graham MD Liver Ultrasound 06/13/16 0000 Signed Impressions: Service Date/Time: Monday, June 13, 2016 09:42 - CONCLUSION: 1. Small amount free fluid identified medial to the lower pole of the right kidney. 2. Slight increased hepatic echotexture suggesting some degree of fatty infiltration. 3. Please note the body and tail of the pancreas are obscured by overlying bowel gas. The head neck and uncinate process are sonographically intact. Mauro Leslie MD Head CT 06/12/16 1657 Signed Impressions: Service Date/Time: May 21:37 - CONCLUSION: Unremarkable study. Jose Martinez MD Renal Ultrasound 06/12/16 0000 Signed Impressions: Service Date/Time: May 23:51 - CONCLUSION: 1. Mild pelvocaliectasis on the right. No hydronephrosis involving either kidney. Simone Woody Jr., MD Chest CT 06/12/16 0000 Signed Impressions: Service Date/Time: May 21:39 - CONCLUSION: Right upper lobe parenchymal process may represent pneumonia, however follow up is suggested with repeat noncontrast chest CT in 2-4 weeksafter appropriate clinical therapy. Joes Martinez MD Objective Remarks GENERAL: Elderly woman laying in bed, orally intubated. SKIN: Warm and dry. HEAD: Normocephalic. EYES: No scleral icterus. No injection or drainage. NECK: Supple, trachea midline. No JVD or lymphadenopathy. CARDIOVASCULAR: Regular rate and rhythm without murmurs, gallops, or rubs. RESPIRATORY: Breath sounds equal bilaterally. No accessory muscle use. GASTROINTESTINAL: Abdomen soft, non-tender, nondistended. MUSCULOSKELETAL: No cyanosis, or edema. EXTREMITIES: No clubbing cyanosis or edema Neuro: Remains encephalopathic off sedation, arousable, has spontaneous eye opening however not following commands. Orally intubated on mechanical ventilation A/P Assessment and Plan Acute respiratory failure on mechanical ventilation Encephalopathy SIRS/sepsis Acute kidney injury Rhabdo Hypernatremia Hypokalemia Anemia Lactic acidemia Leukocytosis- resolved Elevated LFT UTI Plan Neuro: Off sedation. Monitor neuro status and avoid sedatives. Ammonia level: 40, TSH 2.5. Continue with Lactulose. CT brain: No acute findings. UDS+ +Benzos MRA brain 06/14- Unremarkable. s/p LP showed clear CSF and 15 WBC. EEG: Bihemispheric slowing, small sharp waves b/l neuro is following- Dr. Boggs, On Keppra 500mg Q12 Pulm: Continue with vent support keep sat >92% Bronchodilators, ICU vent bundle. SBT trials as cherie CV: Monitor HR and BP keep MAP>65mmHg. Lactic acid trending down. : Monitor renal function, I/O's, avoid nephrotoxins. Electrolytes replacement per protocol. Renal US: No hydronephrosis. Renal is following- Dr. Corral IVF D5NS@100ml/hr monitor Sodium level and CK's. GI: On Pepcid 20meq IV qhs, tube feeds on hold (Glucerna 1.5 with goal rate 45ml /hr) Monitor LFT's ( trending down), US liver: Fatty liver, GI is following. CT abdomen/pelvis last night- findings suggestive of adynamic ileus. No mechanical obstruction. On Reglan 5mg Iv q8 PRN, Miralax, Lactulose ID: Continue abx per ID (Zyvox,Zosyn)monitor for signs of infections ( Fever, WBC) Patient was given Vanco, Zosyn, Zithromax in ED. 06/12 Urine cx: E.coli 06/12 BC: No growth 06/12 CSG: NGTD 06/15 urine: GNR, sputum: Staph Aureus Heme: Monitor CBC, coags, Hep plt ab negative. Thrombocytopenia likely 2nd sepsis Endo: SSI for glycemic control, TSH level: 2.5 GI Prophylaxis with Pepcid DVT prophylaxis with SCD, not on AC prophylaxis 2nd to thrombocytopenia Time spent on critical care excluding procedures 30 minutes Michael Torre MD Jun 22, 2016 17:20
[2016-06-22] MEDS: CHLORHEXIDINE GLUCONATE 2 % 1 PACK (2 CLOTHS) TOP SCH (20:08)
[2016-06-22] MEDS: FAMOTIDINE 20 MG/2 ML VIAL IV PUSH SCH (21:11)
[2016-06-22 23:52] LABS: MITOCHONDRIAL ABS LESS THAN 20.0 U (())
[2016-06-23] VITALS (17 sets, daily range): BP systolic 130–152; BP diastolic 74–84; PULSE 103–116; RESP 20–27; TEMP 98.5–99.7; O2SAT 96–100
[2016-06-23 04:25] LABS: AUTOMATED NEUTROPHIL # 5.4 TH/MM3 (1.8-7.7); BASOPHIL % 0.1 % (0.0-2.0); EOSINOPHIL % 0.1 % (0.0-4.0); HEMATOCRIT 22.4 % (35.0-46.0); LYMPH % 14.6 % (9.0-44.0); MEAN CELL VOLUME 79.5 FL (80.0-100.0); MEAN CORPUSCULAR HEMOGLOBIN 25.9 PG (27.0-34.0); MEAN CORPUSCULAR HGB CONC 32.5 % (32.0-36.0); MONO % 4.8 % (0.0-8.0); NEUT % 80.4 % (16.0-70.0); PLATELET COUNT 43 TH/MM3 (150-450); RED BLOOD COUNT 2.81 MIL/MM3 (4.00-5.30); RED CELL DISTRIBUTION WIDTH 16.1 % (11.6-17.2); WHITE BLOOD COUNT 6.7 TH/MM3 (4.0-11.0)
[2016-06-23 04:43] LABS: HEMO FLAGS AUTO DIFF
[2016-06-23 04:49] LABS: ALT (GPT) 147 U/L (10-53); ANION GAP 8 MEQ/L (5-15); AST (GOT) 67 U/L (15-37); BICARBONATE 26.5 MEQ/L (21.0-32.0); BLOOD UREA NITROGEN 10 MG/DL (7-18); CHLORIDE 110 MEQ/L (98-107); GLOMERULAR FILTRATION RATE 219 ML/MIN (>89); POTASSIUM 3.8 MEQ/L (3.5-5.1); SODIUM (NA) 144 MEQ/L (136-145)
[2016-06-23 04:51] LABS: ALKALINE PHOSPHATASE 114 U/L (45-117); TOTAL BILIRUBIN ADULT LESS THAN 0.1 MG/DL (0.2-1.0)
[2016-06-23 07:28] LABS: PLATELET ESTIMATE SMEAR LOW (NORMAL)
[2016-06-23 07:29] LABS: PLATELET MORPHOLOGY NORMAL (NORMAL); SCAN/DIFF AUTO DIFF CONFIRMED
[2016-06-23] MEDS: DEXT 5%-NACL 0.9% 1000 ML INJ 1,000 ML IV SCH ×2 (08:26→18:12)
[2016-06-23] MEDS: SODIUM CHLORIDE 0.9% FLUSH 10 ML FLUSH IV FLUSH SCH ×2 (09:00→20:21)
[2016-06-23] MEDS: PREGABALIN 75 MG CAP PO SCH ×2 (09:21→20:20)
[2016-06-23] MEDS: POLYETHYLENE GLYCOL 17 GM PKG PO SCH (09:21)
[2016-06-23] MEDS: levETIRAcetam INJ 500 MG in SODIUM CHLORIDE 0.9% INJ 100 ML IV SCH ×2 (09:21→20:20)
[2016-06-23] MEDS: BACLOFEN 10 MG TAB PO SCH ×3 (09:21→18:11)
[2016-06-23] MEDS: LACTULOSE SYRUP 20 GM/30 ML CUP PO SCH ×2 (09:21→20:20)
[2016-06-23] MEDS: CHLORHEXIDINE 0.12% (ORAL KIT) 15 ML CUP MT SCH ×2 (09:22→20:20)
[2016-06-23] MEDS: cefTRIAXone INJ 2,000 MG in SODIUM CHLORIDE 0.9% INJ 100 ML IV SCH (18:11)
--- NOTE | 2016-06-23 19:02 | HHI.CCPN ---
Subjective Remarks/Hospital Course 56-year-old female brought in by EMS emergently as altered mental status, hypoxia and temperature 104. Patient has a history of CVA many years ago. Per caregiver she didn't feel well since yesterday and wasn't taking any of medications including baclofen. Patient was unable to communicate due to her altered mental status. As per EMS not much history was available from the family but she has history of CVA as baseline but communicates. In the emergency department patient's oxygen saturation was low 70s upon EMS arrival. They had her on oxygen via nonrebreather and sats of 93%. GCS was 6 and she was intubated by ER attending for an airway protection. 06/13 Patient is sedated with Versed and on Bicarb drip. Renal function is improving with Cr: 2.12 from 3.19 UO: 1350ml since yesterday. Afebrile. 06/14 Patient remains sedated and intubated. Afebrile. Renal function continue to improve with Cr: 1.18 today from 1.53. 06/15 No acute events overnight. Off sedation remains intubated. Patient tolerated CPAP all day yesterday. MRA brain last night is unremarkable. T:99.9 06/16 Patient remains intubated off sedation. Afebrile. Tolerated CPAP all day yesterday remains encephalopathic. 06/17 No acute events overnight. Patient is able to open her eyes but does not follow commands. T: 100.1 last night. 06/18: Remains encephalopathic, orally intubated on mechanical ventilation. 06/19: Remains encephalopathic, orally intubated on mechanical ventilation. Daily C Pap trials ongoing. 06/20: Remains encephalopathic, orally intubated on mechanical ventilation. Daily C Pap trials. Tube feeds resumed. 06/21: More awake however not following commands. Remains orally intubated on mechanical ventilation. Tolerating tube feeds. Daily C Pap trials ongoing. 06/22: Encephalopathic though more awake, arousable. Not following commands. Remains orally intubated on mechanical ventilation. Tolerating tube feeds. Daily C Pap trials. 06/23: Awake, not following commands. Remains orally intubated on mechanical ventilation. Feeling C Pap trials. Tolerating tube feeds Objective Vital Signs Date Time Temp Pulse Resp B/P Pulse Ox O2 Delivery O2 Flow Rate FiO2 06/23/16 18:00 107 06/23/16 17:53 99 35 06/23/16 16:00 98.5 26 132/74 Intake and Output 06/22/16 06/22/16 06/23/16 08:00 16:00 00:00 Intake Total 1173 ml 1584 ml 1255 ml Output Total 650 ml 1500 ml 550 ml Balance 523 ml 84 ml 705 ml Result Diagram: 06/23/16 0300 06/23/16 0300 Imaging Last Impressions Abdomen/Pelvis CT 06/17/16 0000 Signed Impressions: Service Date/Time: Friday, June 17, 2016 04:12 - CONCLUSION: 1. New bibasilar atelectasis. 2. There is some mild dilatation of the small bowel. There is a mild to moderate distention of the colon down to the rectum suggestive of a diffuse adynamic ileus. No definite mechanical obstruction is seen. 3. Otherwise, no other significant changes compared to the prior study. Andi Luna MD Chest X-Ray 06/16/16 0000 Signed Impressions: Service Date/Time: Thursday, June 16, 2016 04:51 - CONCLUSION: Right basilar density likely atelectasis.. Chadd Kahn MD Abdomen X-Ray 06/16/16 0000 Signed Impressions: Service Date/Time: Thursday, June 16, 2016 17:15 - CONCLUSION: 1. Nonspecific bowel gas pattern which may represent a mild ileus or gastroenteritis. Rico Pedraza MD Brain MRI 06/15/16 0000 Signed Impressions: Service Date/Time: Wednesday, June 15, 2016 09:10 - CONCLUSION: No acute abnormality seen. 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 Reginaldo Cain MD Head Magnetic Resonance Angiography 06/14/16 0000 Signed Impressions: Service Date/Time: Tuesday, June 14, 2016 18:23 - CONCLUSION: No evidence of vessel truncation or aneurysm. Simone Graham MD Liver Ultrasound 06/13/16 0000 Signed Impressions: Service Date/Time: Monday, June 13, 2016 09:42 - CONCLUSION: 1. Small amount free fluid identified medial to the lower pole of the right kidney. 2. Slight increased hepatic echotexture suggesting some degree of fatty infiltration. 3. Please note the body and tail of the pancreas are obscured by overlying bowel gas. The head neck and uncinate process are sonographically intact. Mauro Leslie MD Head CT 06/12/16 1657 Signed Impressions: Service Date/Time: May 21:37 - CONCLUSION: Unremarkable study. Jose Martinez MD Renal Ultrasound 06/12/16 0000 Signed Impressions: Service Date/Time: May 23:51 - CONCLUSION: 1. Mild pelvocaliectasis on the right. No hydronephrosis involving either kidney. Simone Woody Jr., MD Chest CT 06/12/16 0000 Signed Impressions: Service Date/Time: May 21:39 - CONCLUSION: Right upper lobe parenchymal process may represent pneumonia, however follow up is suggested with repeat noncontrast chest CT in 2-4 weeksafter appropriate clinical therapy. Jose Martinez MD Objective Remarks GENERAL: Elderly woman laying in bed, orally intubated. SKIN: Warm and dry. HEAD: Normocephalic. EYES: No scleral icterus. No injection or drainage. NECK: Supple, trachea midline. No JVD or lymphadenopathy. CARDIOVASCULAR: Regular rate and rhythm without murmurs, gallops, or rubs. RESPIRATORY: Breath sounds equal bilaterally. No accessory muscle use. GASTROINTESTINAL: Abdomen soft, non-tender, nondistended. MUSCULOSKELETAL: No cyanosis, or edema. EXTREMITIES: No clubbing cyanosis or edema Neuro: Remains encephalopathic off sedation, arousable, has spontaneous eye opening however not following commands. Orally intubated on mechanical ventilation A/P Assessment and Plan Acute respiratory failure on mechanical ventilation Encephalopathy SIRS/sepsis Acute kidney injury Rhabdo Hypernatremia Hypokalemia Anemia Lactic acidemia Leukocytosis- resolved Elevated LFT UTI Plan Neuro: Off sedation. Monitor neuro status and avoid sedatives. Ammonia level: 40, TSH 2.5. Continue with Lactulose. CT brain: No acute findings. UDS+ +Benzos MRA brain 06/14- Unremarkable. s/p LP showed clear CSF and 15 WBC. EEG: Bihemispheric slowing, small sharp waves b/l neuro is following- Dr. Boggs, On Keppra 500mg Q12 Pulm: Continue with vent support keep sat >92% Bronchodilators, ICU vent bundle. SBT trials as cherie CV: Monitor HR and BP keep MAP>65mmHg. Lactic acid trending down. : Monitor renal function, I/O's, avoid nephrotoxins. Electrolytes replacement per protocol. Renal US: No hydronephrosis. Renal is following- Dr. Corral IVF D5NS@100ml/hr monitor Sodium level and CK's. GI: On Pepcid 20meq IV qhs, tube feeds on hold (Glucerna 1.5 with goal rate 45ml /hr) Monitor LFT's ( trending down), US liver: Fatty liver, GI is following. CT abdomen/pelvis last night- findings suggestive of adynamic ileus. No mechanical obstruction. On Reglan 5mg Iv q8 PRN, Miralax, Lactulose ID: Continue abx per ID (Zyvox,Zosyn)monitor for signs of infections ( Fever, WBC) Patient was given Vanco, Zosyn, Zithromax in ED. 06/12 Urine cx: E.coli 06/12 BC: No growth 06/12 CSG: NGTD 06/15 urine: GNR, sputum: Staph Aureus Heme: Monitor CBC, coags, Hep plt ab negative. Thrombocytopenia likely 2nd sepsis Endo: SSI for glycemic control, TSH level: 2.5 GI Prophylaxis with Pepcid DVT prophylaxis with SCD, not on AC prophylaxis 2nd to thrombocytopenia May require tracheostomy as neurologic status is borderline and does not tolerate C Pap trials on dropping pressure-support very well. We'll consult palliative care to assist with deciding goals of therapy Time spent on critical care excluding procedures 30 minutes Michael Torre MD June 23, 2016 19:02
[2016-06-23] MEDS: FAMOTIDINE 20 MG/2 ML VIAL IV PUSH SCH (20:21)
[2016-06-24] VITALS (19 sets, daily range): BP systolic 135–145; BP diastolic 71–85; PULSE 91–109; RESP 19–24; TEMP 98–98.8; O2SAT 92–100
[2016-06-24] MEDS: CHLORHEXIDINE GLUCONATE 2 % 1 PACK (2 CLOTHS) TOP SCH (03:25)
[2016-06-24] MEDS: DEXT 5%-NACL 0.9% 1000 ML INJ 1,000 ML IV SCH ×2 (03:25→14:26)
[2016-06-24 04:44] LABS: AUTOMATED NEUTROPHIL # 4.9 TH/MM3 (1.8-7.7); BASOPHIL % 0.2 % (0.0-2.0); EOSINOPHIL % 0.2 % (0.0-4.0); HEMATOCRIT 21.2 % (35.0-46.0); LYMPH % 15.3 % (9.0-44.0); LYMPHOCYTE # 0.9 TH/MM3 (1.0-4.8); MEAN CELL VOLUME 78.1 FL (80.0-100.0); MEAN CORPUSCULAR HEMOGLOBIN 26.5 PG (27.0-34.0); MONO % 4.9 % (0.0-8.0); NEUT % 79.4 % (16.0-70.0); PLATELET COUNT 72 TH/MM3 (150-450); RED BLOOD COUNT 2.71 MIL/MM3 (4.00-5.30); WHITE BLOOD COUNT 6.1 TH/MM3 (4.0-11.0)
[2016-06-24 04:45] LABS: HEMO FLAGS AUTO DIFF
[2016-06-24 05:08] LABS: ANION GAP 7 MEQ/L (5-15); AST (GOT) 62 U/L (15-37); BICARBONATE 26.5 MEQ/L (21.0-32.0); BLOOD UREA NITROGEN 10 MG/DL (7-18); CHLORIDE 109 MEQ/L (98-107); GLOMERULAR FILTRATION RATE 269 ML/MIN (>89); POTASSIUM 3.6 MEQ/L (3.5-5.1); SODIUM (NA) 142 MEQ/L (136-145)
[2016-06-24 05:22] LABS: ALKALINE PHOSPHATASE 118 U/L (45-117); ALT (GPT) 133 U/L (10-53); TOTAL BILIRUBIN ADULT 0.1 MG/DL (0.2-1.0)
[2016-06-24 07:17] LABS: BANDS 6 % (0-6); METAMYELOCYTES 3 % (0-1); NEUTROPHIL # MANUAL DIFF 4.8 TH/MM3 (1.8-7.7); PLATELET ESTIMATE SMEAR LOW (NORMAL); PLATELET MORPHOLOGY NORMAL (NORMAL); POLYS (SEG NEUTROPHILS) 70 % (16-70); SCAN/DIFF FINAL DIFF MANUAL; WBC DIFF SAMPLE 100
[2016-06-24] MEDS: SODIUM CHLORIDE 0.9% FLUSH 10 ML FLUSH IV FLUSH SCH ×2 (08:36→20:12)
[2016-06-24] MEDS: POLYETHYLENE GLYCOL 17 GM PKG PO SCH (08:36)
[2016-06-24] MEDS: LACTULOSE SYRUP 20 GM/30 ML CUP PO SCH ×2 (08:36→20:12)
[2016-06-24] MEDS: levETIRAcetam INJ 500 MG in SODIUM CHLORIDE 0.9% INJ 100 ML IV SCH ×2 (08:36→20:11)
[2016-06-24] MEDS: PREGABALIN 75 MG CAP PO SCH ×2 (08:36→20:11)
[2016-06-24] MEDS: BACLOFEN 10 MG TAB PO SCH ×3 (08:36→17:45)
[2016-06-24] MEDS: CHLORHEXIDINE 0.12% (ORAL KIT) 15 ML CUP MT SCH ×2 (08:37→20:12)
--- NOTE | 2016-06-24 14:40 | PD.CONS ---
Consult Service Palliative Care Consult Requested By Dr. Gustabo Torre . Primary Care Physician Dr. Charles . Reason for Consultation a. To assist with evaluation and management of symptoms including: Dyspnea , encephalopathy b. To assist medical decision maker(s) with: better understanding of current medical conditions; weighing benefits/burdens of medical treatment options; making medical treatment decisions. . HPI History of Present Illness This 56-year-old female, with a past history of ischemic strokes 2010, and bedbound status the past 5 years, and anemia, to the emergency department on because of altered mental status and fever. The patient suffered 2 ischemic strokes within a short time in 2010, resulting in a right hemiplegia. She went through rehab, and did regain some functional capacity, but that gradually diminished and she has been bedbound and cared for by her the past 5 years at home. In early May, the patient seemed to be declining more, and she stopped communicating verbally. Prior to that time, she had limited speech but was able to converse with her and and indicate her needs. A few days prior to this admission, she stopped eating and drinking, and was even less alert and aware. She developed fever and she was brought to the hospital on 06/12/16, significantly lethargic. Initial room air saturations were in the 70s. Findings in the emergency department included: * Oxygen saturation 93% on a nonrebreather * Marked lethargy, diminishing alertness, tachypnea * Temp 100.8, pulse 125, respirations 24, blood pressure 118/66 * White count 12.6, hemoglobin 11.3 * Sodium 156, creatinine 3.19, albumin 2.8 * Chest x-ray unremarkable * CT of the chest revealed findings consistent with right upper lobe infection * Abdominal/pelvis CT was negative * Brain CT was also negative for any acute findings Because of the patient's neurologic status and dyspnea, she was INTUBATED in the emergency department. Cultures were obtained, antibiotics were started, and the patient was admitted. A brain MRI/MRA was completed on 06/15/16, not revealing any acute issues. The sputum grew Staphylococcus, the urine grew Escherichia coli, and the blood cultures were negative. On 06/22/16, the patient seemed more awake, but was not following commands. Neurology saw the patient, and felt that her encephalopathy was acute and chronic. The renal function improved with rehydration. LFTs were increased, but have gradually been improving, and likely were due to multiple factors including the infection. CPAP trials have been underway intermittently the last few days, and there has been some discussion about possibly being able to extubate the patient. Palliative Care was consulted to assist with symptom management, and to enter into discussions with the patient's regarding the current illnesses, the prognosis, and the benefits and burdens of the various treatment options. . Function/Cognitive Trajectory For the past 5 years, the patient has been bedbound at home, sometimes gotten up into the wheelchair by her who is her primary caregiver. She required assistance for all of her ADLs. The patient stopped communicating in the weeks leading up to this hospitalization. . Review of Systems ROS Limitations: Clinical Condition, Intubated, Altered Mental Status Constitutional: COMPLAINS OF: Fever, DENIES: Weight gain Endocrine: DENIES: Polyuria Eyes: DENIES: Eye inflammation Ears, nose, mouth, throat: DENIES: Epistaxis Respiratory: COMPLAINS OF: Shortness of breath Cardiovascular: COMPLAINS OF: Dyspnea on Exertion, DENIES: Syncope, Lower Extremity Edema Gastrointestinal: DENIES: Constipation, Diarrhea, Vomiting, Vomiting blood Genitourinary: DENIES: Hematuria Musculoskeletal: DENIES: Joint Swelling Integumentary: DENIES: Rash Hematologic/Lymphatics: DENIES: Bruising Immunologic/Allergic: DENIES: Urticaria Neurologic: COMPLAINS OF: Localized weakness (right sided weakness since her strokes), DENIES: Seizures Psychiatric: DENIES: Hallucinations, Agitation Past Family Social History Coded Allergies: DO NOT USE (Verified Allergy, Mild, Hallucinations, 06/12/16) Past Medical History * Respiratory failure * UTI/sepsis * Encephalopathy, acute and chronic * Acute kidney injury, resolved * Elevated LFTs, improving * Hypernatremia, resolved * History of ischemic strokes , with right hemiplegia * Hypertension * Anemia . Past Surgical History Partial hysterecotmy Reported Medications Temazepam 15 Mg Cap 15 Mg PO HS PRN Amlodipine (Amlodipine Besylate) 10 Mg Tab 10 Mg PO DAILY Meclizine (Meclizine HCl) 25 Mg Tab 25 Mg PO QID PRN Ranitidine (Ranitidine HCl) 150 Mg Tab 150 Mg PO BID Baclofen 10 Mg Tab 10 Mg PO TID Sertraline (Sertraline HCl) 100 Mg Tab 100 Mg PO DAILY Lyrica (Pregabalin) 75 Mg Cap 75 Mg PO BID . Current Medications Medications (Trade) Dose Ordered Sig/Kiel Route Start Time Stop Time Status Last Admin (fentaNYL DRIP) 250 ml @ 0 mls/hr TITRATE IV 06/12/16 17:30 (NS Flush) 2 ml UNSCH PRN IV FLUSH 06/12/16 18:00 06/15/16 09:42 (NS Flush) 2 ml BID IV FLUSH 06/12/16 21:00 06/24/16 08:36 Miscellaneous Information 1 [id number] XX 06/12/16 18:00 (Chlorhexidine 2% Cloth) Taper DAILY@04 TOP 06/13/16 04:00 06/09/17 03:59 06/20/16 20:52 (Chlorhexidine 2% Cloth) 3 pack UNSCH PRN TOP 06/12/16 18:00 (Peridex 0.12% Liq) 15 ml BID@08,20 MT 06/12/16 20:00 06/24/16 08:37 (Lyrica) 75 mg BID PO 06/12/16 21:00 06/24/16 08:36 (Zoloft) 100 mg DAILY PO 06/12/16 20:15 Hold 06/15/16 09:41 (Lioresal) 10 mg TID PO 06/12/16 20:15 06/24/16 08:36 (Pepcid Inj) 20 mg HS IV PUSH 06/13/16 21:00 06/23/16 20:21 Lactulose 15 ml 15 ml BID PO 06/13/16 11:30 06/24/16 08:36 Potassium Chloride 100 ml @ 50 mls/hr Q2H PRN IV 06/13/16 16:00 06/19/16 10:12 (KCl 20 Meq Premix Inj) 100 ml @ 50 mls/hr Q2H PRN IV 06/13/16 16:00 Potassium Bicarb/ Potassium Chloride 50 meq 50 meq UNSCH PRN PO 06/13/16 16:00 Potassium Chloride 100 ml @ 25 mls/hr UNSCH PRN IV 06/13/16 16:00 06/20/16 13:33 Potassium Chloride 100 ml @ 50 mls/hr Q2H PRN IV 06/13/16 16:00 (Magnesium Sulfate Inj/NS Inj) 100 ml @ 50 mls/hr UNSCH PRN IV 06/13/16 16:00 Magnesium Oxide 800 mg 800 mg UNSCH PRN PO 06/13/16 16:00 (Magnesium Sulfate Inj/NS Inj) 100 ml @ 50 mls/hr UNSCH PRN IV 06/13/16 16:00 Potassium Phosphate 2000 mg 2,000 mg Q4H PRN PO 06/13/16 16:00 (Sodium Phosphate Inj/NS 250 ml Inj) 250 ml @ 42 mls/hr UNSCH PRN IV 06/13/16 16:00 06/18/16 09:34 Potassium Phosphate 2000 mg 2,000 mg UNSCH PRN PO/TUBE 06/13/16 16:00 Potassium Phosphate 30 mmol/ Sodium Chloride 260 ml @ 42 mls/hr UNSCH PRN IV 06/13/16 16:00 Dextrose/Sodium Chloride 1,000 ml @ 100 mls/hr Q10H IV 06/15/16 08:00 06/24/16 03:25 (Keppra Inj/NS Inj) 105 ml @ 420 mls/hr Q12HR IV 06/15/16 21:00 06/24/16 08:36 (Reglan Inj) 5 mg Q8H PRN IV PUSH 06/16/16 09:15 Polyethylene Glycol 17 gm 17 gm DAILY PO 06/16/16 16:45 06/23/16 09:21 (Rocephin Inj/NS Inj) 100 ml @ 200 mls/hr Q24H IV 06/19/16 18:00 06/23/16 18:11 (Tylenol 650 Mg/ 20 ml Liq) 650 mg Q6H PRN PO 06/20/16 00:45 06/21/16 01:17 (Cathflo Activase Inj) 2 mg Q2H PRN INTRACATH 06/20/16 18:45 Family History The reports that the patient's father of a stroke, and the has no information on the patient's mother. He knows of no other family history. . Substance Use Tobacco: None Alcohol: None Prescription med abuse: None Illicits: None . Psychosocial History The patient was born in the [facility], lived in [place] for quite some time, and returned to this area several years ago. She has been living at home with her as her primary caregiver. The patient has been 3 times, currently for 13 years. She has a daughter who is in her 30s, and a 12-year-old daughter. Although her current "raised the younger one from 6 months of age," neither of these 2 daughters are also be biologic daughters of the patient's current . 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 . Spiritual/Cultural Factors Spirituality has been very important for the patient, and the patient's does believe that she would appreciate utility hand visits. . Living Will: Completed, but not made available Documented care wishes: Reportedly has a living will at her primary care doctor's office. . Family/friends goals: The patient's reports he wants "everything possible done to save my 's life." If she is able to be extubated, he would want her reintubated if she has respiratory failure again. He is aware that "there will come a time when everything is worse and she won't get better" and he may want to "let her go naturally then." . Ethical and Legal Issues There are no ethical issues that would impact her care or decision-making at this time. The patient lacks capacity for decision making, and it is very unlikely that she will regain that capacity. Her is the healthcare proxy decision- maker, as there is no reported health care surrogacy form. . Physical Exam Vital Signs Date Time Temp Pulse Resp B/P Pulse Ox O2 Delivery O2 Flow Rate FiO2 06/24/16 11:30 100 40 06/24/16 10:27 98 40 06/24/16 10:00 103 06/24/16 09:30 35 06/24/16 08:51 45 06/24/16 08:51 92 45 06/24/16 08:00 98.0 109 20 140/84 93 06/24/16 08:00 109 06/24/16 08:00 35 06/24/16 06:00 96 06/24/16 04:07 100 35 06/24/16 04:00 35 06/24/16 04:00 104 06/24/16 04:00 98.6 104 19 145/71 100 06/24/16 02:00 106 06/24/16 00:49 100 35 06/24/16 00:00 98.8 107 20 137/78 100 06/24/16 00:00 107 06/24/16 00:00 35 06/23/16 22:00 103 06/23/16 21:43 25 06/23/16 21:22 100 35 06/23/16 20:00 104 06/23/16 20:00 99.7 104 25 134/79 100 06/23/16 20:00 35 06/23/16 18:00 107 06/23/16 17:53 99 35 06/23/16 16:00 109 06/23/16 16:00 98.5 109 26 132/74 100 06/23/16 16:00 35 06/23/16 14:00 116 06/23/16 06/24/16 19:00 07:00 Intake Total 1593 ml 2435 ml Output Total 1750 ml 1900 ml Balance -157 ml 535 ml Intake IV Total 999 ml 1672 ml Tube Feeding 414 ml 663 ml Other 180 ml 100 ml Output Urine Total 1200 ml 1800 ml Stool Total 550 ml 100 ml Exam CONSTITUTIONAL/GENERAL: This is an adequately nourished patient, in no apparent distress. Intubated in the [facility], not on sedationv TUBES/LINES/DRAINS: ET tube, Cortes catheter SKIN: No jaundice, rashes, or lesions. No wounds seen anteriorly. Skin temperature appropriate. Not diaphoretic. HEAD: Atraumatic. Normocephalic. EYES: Pupils equal and round and reactive. No scleral icterus. No injection or drainage. Fundi not examined. ENT: Nose without bleeding or purulent drainage. NECK: Trachea midline. Supple, nontender. No palpable thyroid enlargement or nodularity. CARDIOVASCULAR: Irregular rhythm without murmurs, gallops, or rubs. No JVD. Peripheral pulses symmetric. RESPIRATORY/CHEST: Symmetric, unlabored respirations. Scattered rhonchi. GASTROINTESTINAL: Abdomen soft, non-tender, nondistended. No hepato-splenomegaly , or palpable masses. No guarding. Bowel sounds present. GENITOURINARY: Without palpable bladder distension. Cortes catheter in place. MUSCULOSKELETAL: Extremities without clubbing, cyanosis, or edema. No joint tenderness or effusion noted. No calf tenderness. No mottling or clubbing. LYMPHATICS: No palpable cervical or supraclavicular adenopathy. NEUROLOGICAL: Eyes are open, appears awake, but does not track and does not follow simple command. PSYCHIATRIC: No obvious anxiety, restlessness . Diagnostic Tests Laboratory Laboratory Tests Test 06/23/16 06/24/16 03:00 04:15 White Blood Count 6.7 TH/MM3 6.1 TH/MM3 (4.0-11.0) (4.0-11.0) Red Blood Count 2.81 MIL/MM3 2.71 MIL/MM3 (4.00-5.30) (4.00-5.30) Hemoglobin 7.3 GM/DL 7.2 GM/DL (11.6-15.3) (11.6-15.3) Hematocrit 22.4 % 21.2 % (35.0-46.0) (35.0-46.0) Mean Corpuscular Volume 79.5 FL 78.1 FL (80.0-100.0) (80.0-100.0) Mean Corpuscular Hemoglobin 25.9 PG 26.5 PG (27.0-34.0) (27.0-34.0) Mean Corpuscular Hemoglobin 32.5 % 34.0 % Concent (32.0-36.0) (32.0-36.0) Red Cell Distribution Width 16.1 % 16.0 % (11.6-17.2) (11.6-17.2) Platelet Count 43 TH/MM3 72 TH/MM3 (150-450) (150-450) Mean Platelet Volume 10.7 FL 9.7 FL (7.0-11.0) (7.0-11.0) Neutrophils (%) (Auto) 80.4 % 79.4 % (16.0-70.0) (16.0-70.0) Lymphocytes (%) (Auto) 14.6 % 15.3 % (9.0-44.0) (9.0-44.0) Monocytes (%) (Auto) 4.8 % (0.0-8.0) 4.9 % (0.0-8.0) Eosinophils (%) (Auto) 0.1 % (0.0-4.0) 0.2 % (0.0-4.0) Basophils (%) (Auto) 0.1 % (0.0-2.0) 0.2 % (0.0-2.0) Neutrophils # (Auto) 5.4 TH/MM3 4.9 TH/MM3 (1.8-7.7) (1.8-7.7) Lymphocytes # (Auto) 1.0 TH/MM3 0.9 TH/MM3 (1.0-4.8) (1.0-4.8) Monocytes # (Auto) 0.3 TH/MM3 0.3 TH/MM3 (0-0.9) (0-0.9) Eosinophils # (Auto) 0.0 TH/MM3 0.0 TH/MM3 (0-0.4) (0-0.4) Basophils # (Auto) 0.0 TH/MM3 0.0 TH/MM3 (0-0.2) (0-0.2) CBC Comment AUTO DIFF AUTO DIFF Differential Comment AUTO DIFF FINAL DIFF CONFIRMED MANUAL Platelet Estimate LOW (NORMAL) LOW (NORMAL) Platelet Morphology Comment NORMAL NORMAL (NORMAL) (NORMAL) Sodium Level 144 MEQ/L 142 MEQ/L (136-145) (136-145) Potassium Level 3.8 MEQ/L 3.6 MEQ/L (3.5-5.1) (3.5-5.1) Chloride Level 110 MEQ/L 109 MEQ/L (98-107) (98-107) Carbon Dioxide Level 26.5 MEQ/L 26.5 MEQ/L (21.0-32.0) (21.0-32.0) Anion Gap 8 MEQ/L (5-15) 7 MEQ/L (5-15) Blood Urea Nitrogen 10 MG/DL (7-18) 10 MG/DL (7-18) Creatinine 0.37 MG/DL 0.31 MG/DL (0.50-1.00) (0.50-1.00) Estimat Glomerular Filtration 219 ML/MIN 269 ML/MIN Rate (>89) (>89) Random Glucose 124 MG/DL 144 MG/DL (74-106) (74-106) Calcium Level 8.1 MG/DL 8.0 MG/DL (8.5-10.1) (8.5-10.1) Total Bilirubin LESS THAN 0.1 0.1 MG/DL MG/DL (0.2-1.0) (0.2-1.0) Aspartate Amino Transf 67 U/L (15-37) 62 U/L (15-37) (AST/SGOT) Alanine Aminotransferase 147 U/L (10-53) 133 U/L (10-53) (ALT/SGPT) Alkaline Phosphatase 114 U/L 118 U/L (45-117) (45-117) Total Protein 6.1 GM/DL 5.9 GM/DL (6.4-8.2) (6.4-8.2) Albumin 1.5 GM/DL 1.6 GM/DL (3.4-5.0) (3.4-5.0) Differential Total Cells 100 Counted Neutrophils % (Manual) 70 % (16-70) Band Neutrophils % 6 % (0-6) Lymphocytes % 17 % (9-44) Monocytes % 4 % (0-8) Neutrophils # (Manual) 4.8 TH/MM3 (1.8-7.7) Metamyelocytes 3 % (0-1) Result Diagram: 06/24/16 0415 06/24/16 0415 Procedures INTUBATION 06/12/16 . Patient/Family Conference Present at Family Conference: Patient's Josiah . Family Conference Time (mins): 42 Family Conference Location: Consult Room Issues Discussed: * Palliative care role, purpose, approach * Additional medical, psychosocial, and spiritual history * Patients general health, functional status, and cognitive changes in the months leading up to the current hospitalization * Patient/family understanding of the current medical problems * Patient/family understanding of prognosis * Patients goals of care as best understood from advance directives and/or conversations and/or values * Current medical treatment options and benefits/burdens of those options * Likely scenarios comparing ongoing aggressive care with a transition to comfort measures only * Questions answered to the best of my ability * Palliative care contact information provided The patient's reports he wants "everything possible done to save my 's life." If she is able to be extubated, he would want her reintubated if she has respiratory failure again. He is aware that "there will come a time when everything is worse and she won't get better" and he may want to "let her go naturally then." . Assessment and Plan Disease Oriented Problem List: (1) respiratory failure (2) UTI/sepsis (3) history of ischemic strokes 2010, with right hemiplegia (4) encephalopathy, acute and chronic (5) hypertension (6) anemia (7) elevated LFTs, improving (8) acute kidney injury, resolved (9) hypernatremia, resolved Symptom Scale: (1) dyspnea (2) encephalopathy Pertinent Non-Medical Issues Psychosocial: for 13 years, 2 daughters including a 12-year-old from previous relationships, worked as an [employer] for many years. Spiritual: Spirituality has been very important for the patient, and the patient 's does believe that she would appreciate utility hand visits. Legal: The patient lacks capacity for decision making, and it is very unlikely that she will regain that capacity. Her is the healthcare proxy decision-maker, as there is no reported health care surrogacy form. Ethical issues impacting care: Important Contacts : Josiah Velazquez [phone] NOTE: The patient's wants to be the primary point of contact, as he does not want the patient's older daughter trying to make decisions about the patient's care. . Prognosis The patient's prognosis is quite poor. She was already a debilitated bedbound hemiplegic post stroke patient, at risk for infections and other complications, and now she is more debilitated and with respiratory failure and significant encephalopathy. She will be appropriate for hospice services if/when the patient's decides to transition to comfort care. . Code Status: Full Code Plan * FULL CODE, confirmed by patient's 06/24/16 * GOALS: The patient's reports he wants "everything possible done to save my 's life." If she is able to be extubated, he would want her reintubated if she has respiratory failure again. He is aware that "there will come a time when everything is worse and she won't get better" and he may want to "let her go naturally then." * DECISION-MAKING: The patient lacks capacity for decision making, and it is very unlikely that she will regain that capacity. Her is the healthcare proxy decision-maker, as there is no reported health care surrogacy form. * NOTE: The patient's wants to be the primary point of contact, as he does not want the patient's older daughter (Natasha) trying to make decisions about the patient's care. * SYMPTOMS: The patient's dyspnea is being managed by the ventilator. She has not had additional restlessness or agitation, and has no obvious pain at this time. No additional medication recommendations are needed at this time. * Palliative Care will continue to follow the patient during this hospitalization. . Time Spent Total Floor Time (mins): 80 Face to Face Time (mins): 12 >50% Counseling/Coord of Care: Yes Thank you for the opportunity to participate in the care of Ms. Velazquez. Attestation To help prompt me to consider important information that might be impacting today's encounter and assessment, information from prior notes written by myself or my colleagues may have been "brought forward" into today's note. My signature on this note, however, is an attestation that I personally performed the exam, history, and/or decision-making noted today, and, unless otherwise indicated, the interactions with patient, family, and staff as well as the review of records all occurred today. I also attest that the listed assessment and stated plan reflect my best clinical judgment today based on the combination of historical information, prior notes, and today's exam/ interactions. When time spent is documented, it refers only to time spent today by the signer, or if indicated, combined time spent today by collaborating physician/nurse practitioner. Phyllis Ibrahim MD June 24, 2016 14:40
[2016-06-24] MEDS: cefTRIAXone INJ 2,000 MG in SODIUM CHLORIDE 0.9% INJ 100 ML IV SCH (17:45)
[2016-06-24] MEDS ORDERED: FUROSEMIDE 40 MG/4 ML VIAL IV PUSH STA (19:18)
--- NOTE | 2016-06-24 19:33 | HHI.CCPN ---
Subjective Remarks/Hospital Course 56-year-old female brought in by EMS emergently as altered mental status, hypoxia and temperature 104. Patient has a history of CVA many years ago. Per caregiver she didn't feel well since yesterday and wasn't taking any of medications including baclofen. Patient was unable to communicate due to her altered mental status. As per EMS not much history was available from the family but she has history of CVA as baseline but communicates. In the emergency department patient's oxygen saturation was low 70s upon EMS arrival. They had her on oxygen via nonrebreather and sats of 93%. GCS was 6 and she was intubated by ER attending for an airway protection. 06/13 Patient is sedated with Versed and on Bicarb drip. Renal function is improving with Cr: 2.12 from 3.19 UO: 1350ml since yesterday. Afebrile. 06/14 Patient remains sedated and intubated. Afebrile. Renal function continue to improve with Cr: 1.18 today from 1.53. 06/15 No acute events overnight. Off sedation remains intubated. Patient tolerated CPAP all day yesterday. MRA brain last night is unremarkable. T:99.9 06/16 Patient remains intubated off sedation. Afebrile. Tolerated CPAP all day yesterday remains encephalopathic. 06/17 No acute events overnight. Patient is able to open her eyes but does not follow commands. T: 100.1 last night. 06/18: Remains encephalopathic, orally intubated on mechanical ventilation. 06/19: Remains encephalopathic, orally intubated on mechanical ventilation. Daily C Pap trials ongoing. 06/20: Remains encephalopathic, orally intubated on mechanical ventilation. Daily C Pap trials. Tube feeds resumed. 06/21: More awake however not following commands. Remains orally intubated on mechanical ventilation. Tolerating tube feeds. Daily C Pap trials ongoing. 06/22: Encephalopathic though more awake, arousable. Not following commands. Remains orally intubated on mechanical ventilation. Tolerating tube feeds. Daily C Pap trials. 06/23: Awake, not following commands. Remains orally intubated on mechanical ventilation. Failing C Pap trials. Tolerating tube feeds. 06/24: Opening eyes, blinks on command. Remains orally intubated on mechanical ventilation. Tolerating tube feeds. Gets tachypneic with low volumes on dropping pressure-support at C Pap trials. We'll initiate diuresis as patient isn't significantly positive fluid balance since admission due to fluids administered for sepsis which now appears to be under control. Objective Vital Signs Date Time Temp Pulse Resp B/P Pulse Ox O2 Delivery O2 Flow Rate FiO2 06/24/16 18:00 95 06/24/16 16:15 100 40 06/24/16 16:00 98.1 21 135/75 Intake and Output 06/23/16 06/23/16 06/24/16 08:00 16:00 00:00 Intake Total 1074 ml 1593 ml 1403 ml Output Total 700 ml 1750 ml 1050 ml Balance 374 ml -157 ml 353 ml Result Diagram: 06/24/16 0415 06/24/16 0415 Imaging Last Impressions Abdomen/Pelvis CT 06/17/16 0000 Signed Impressions: Service Date/Time: Friday, June 17, 2016 04:12 - CONCLUSION: 1. New bibasilar atelectasis. 2. There is some mild dilatation of the small bowel. There is a mild to moderate distention of the colon down to the rectum suggestive of a diffuse adynamic ileus. No definite mechanical obstruction is seen. 3. Otherwise, no other significant changes compared to the prior study. Andi Luna MD Chest X-Ray 06/16/16 0000 Signed Impressions: Service Date/Time: Thursday, June 16, 2016 04:51 - CONCLUSION: Right basilar density likely atelectasis.. Chadd Kahn MD Abdomen X-Ray 06/16/16 0000 Signed Impressions: Service Date/Time: Thursday, June 16, 2016 17:15 - CONCLUSION: 1. Nonspecific bowel gas pattern which may represent a mild ileus or gastroenteritis. Rico Pedraza MD Brain MRI 06/15/16 0000 Signed Impressions: Service Date/Time: Wednesday, June 15, 2016 09:10 - CONCLUSION: No acute abnormality seen. 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 Reginaldo Cain MD Head Magnetic Resonance Angiography 06/14/16 0000 Signed Impressions: Service Date/Time: Tuesday, June 14, 2016 18:23 - CONCLUSION: No evidence of vessel truncation or aneurysm. Simone Graham MD Liver Ultrasound 06/13/16 0000 Signed Impressions: Service Date/Time: Monday, June 13, 2016 09:42 - CONCLUSION: 1. Small amount free fluid identified medial to the lower pole of the right kidney. 2. Slight increased hepatic echotexture suggesting some degree of fatty infiltration. 3. Please note the body and tail of the pancreas are obscured by overlying bowel gas. The head neck and uncinate process are sonographically intact. Mauro Leslie MD Head CT 06/12/[id number] Signed Impressions: Service Date/Time: May 21:37 - CONCLUSION: Unremarkable study. Jose Martinez MD Renal Ultrasound 06/12/16 0000 Signed Impressions: Service Date/Time: May 23:51 - CONCLUSION: 1. Mild pelvocaliectasis on the right. No hydronephrosis involving either kidney. Simone Woody Jr., MD Chest CT 06/12/16 0000 Signed Impressions: Service Date/Time: May 21:39 - CONCLUSION: Right upper lobe parenchymal process may represent pneumonia, however follow up is suggested with repeat noncontrast chest CT in 2-4 weeksafter appropriate clinical therapy. Jose Martinez MD Objective Remarks GENERAL: Elderly woman laying in bed, orally intubated. SKIN: Warm and dry. HEAD: Normocephalic. EYES: Pallor present, No scleral icterus. No injection or drainage. NECK: Supple, trachea midline. No JVD or lymphadenopathy. CARDIOVASCULAR: Regular rate and rhythm without murmurs, gallops, or rubs. RESPIRATORY: Breath sounds equal bilaterally. No accessory muscle use. GASTROINTESTINAL: Abdomen soft, non-tender, nondistended. MUSCULOSKELETAL: No cyanosis, or edema. EXTREMITIES: No clubbing cyanosis or edema Neuro: Awake, blinks eyes on command, has spontaneous eye opening. Has right hemiplegia from previous stroke however not moving left side on command currently. Orally intubated on mechanical ventilation A/P Assessment and Plan Acute respiratory failure on mechanical ventilation Encephalopathy SIRS/sepsis Acute kidney injury Rhabdo Hypernatremia Hypokalemia Anemia Lactic acidemia Leukocytosis- resolved Elevated LFT UTI Plan Neuro: Off sedation. Monitor neuro status and avoid sedatives. Ammonia level: 40, TSH 2.5. Continue with Lactulose. CT brain: No acute findings. UDS+ +Benzos MRA brain 06/14- Unremarkable. s/p LP showed clear CSF and 15 WBC. EEG: Bihemispheric slowing, small sharp waves b/l neuro is following- Dr. Boggs, On Keppra 500mg Q12 Pulm: Continue with vent support keep sat >92% Bronchodilators, ICU vent bundle. SBT trials as cherie. Follow-up chest x-ray on 06/25 CV: Monitor HR and BP keep MAP>65mmHg. Initiated diuresis with Lasix on 06/24 to mobilize fluid. : Monitor renal function, I/O's, avoid nephrotoxins. Electrolytes replacement per protocol. Renal US: No hydronephrosis. Renal is following- Dr. Corral Saline lock IV fluids in view of significant positive fluid balance and initiated diuresis to mobilize fluid GI: On Pepcid 20meq IV qhs, tube feeds on hold (Glucerna 1.5 with goal rate 45ml /hr) Monitor LFT's ( trending down), US liver: Fatty liver, GI is following. CT abdomen/pelvis 06/17- findings suggestive of adynamic ileus. No mechanical obstruction. On Reglan 5mg Iv q8 PRN, Miralax, Lactulose ID: Continue abx per ID (switched from Zyvox,Zosyn to Rocephin on 06/19) Patient was given Vanco, Zosyn, Zithromax in ED. 06/12 Urine cx: E.coli 06/12 BC: No growth 06/12 CSG: NGTD 06/15 urine: E coli, sputum: MSSA Heme: Monitor CBC, coags, Hep plt ab negative. Thrombocytopenia likely 2nd sepsis Endo: SSI for glycemic control, TSH level: 2.5 GI Prophylaxis with Pepcid DVT prophylaxis with SCD, not on AC prophylaxis 2nd to thrombocytopenia May require tracheostomy as neurologic status is borderline and does not tolerate C Pap trials on dropping pressure-support very well. Consulted palliative care to assist with deciding goals of therapy Time spent on critical care excluding procedures 30 minutes Michael Torre MD June 24, 2016 19:33
[2016-06-24] MEDS: POTASSIUM CHLORIDE 25 MEQ EFFERVESCENT TAB NG SCH (20:11)
[2016-06-24] MEDS: FAMOTIDINE 20 MG/2 ML VIAL IV PUSH SCH (20:12)
[2016-06-25] VITALS (18 sets, daily range): BP systolic 131–168; BP diastolic 76–95; PULSE 95–118; RESP 16–24; TEMP 97.8–98.7; O2SAT 100
[2016-06-25] MEDS: CHLORHEXIDINE GLUCONATE 2 % 1 PACK (2 CLOTHS) TOP SCH (04:00)
[2016-06-25] MEDS: CHLORHEXIDINE 0.12% (ORAL KIT) 15 ML CUP MT SCH ×2 (07:41→20:43)
[2016-06-25] MEDS: POTASSIUM CHLORIDE 25 MEQ EFFERVESCENT TAB NG SCH ×3 (08:41→20:47)
[2016-06-25] MEDS: SODIUM CHLORIDE 0.9% FLUSH 10 ML FLUSH IV FLUSH SCH ×2 (08:41→20:46)
[2016-06-25] MEDS: POLYETHYLENE GLYCOL 17 GM PKG PO SCH (08:41)
[2016-06-25] MEDS: LACTULOSE SYRUP 20 GM/30 ML CUP PO SCH ×3 (08:41→20:47)
[2016-06-25] MEDS: FUROSEMIDE 20 MG/2 ML VIAL IV PUSH SCH ×2 (08:41→17:47)
[2016-06-25] MEDS: BACLOFEN 10 MG TAB PO SCH ×3 (08:41→17:47)
[2016-06-25] MEDS: PREGABALIN 75 MG CAP PO SCH ×3 (08:41→20:47)
[2016-06-25] MEDS: SODIUM CHLORIDE 0.9% FLUSH 10 ML FLUSH IV FLUSH PRN (08:41)
[2016-06-25] MEDS: levETIRAcetam INJ 500 MG in SODIUM CHLORIDE 0.9% INJ 100 ML IV SCH ×2 (08:42→20:43)
--- NOTE | 2016-06-25 13:49 | HHI.GIFU ---
Subjective Remarks Resting in bed. Awake on ventilator, not following commands for me. No distress. GI reconsulted for elevated copper. (An Sullivan) Objective Vitals I&O Vital Signs Date Time Temp Pulse Resp B/P Pulse Ox O2 Delivery O2 Flow Rate FiO2 06/25/16 12:32 100 Nasal Cannula 4.00 06/25/16 12:17 100 Nasal Cannula 4 36 06/25/16 12:00 97.8 101 19 153/84 100 06/25/16 12:00 101 06/25/16 11:00 97.9 105 17 147/82 100 06/25/16 10:00 97.7 104 21 154/82 100 06/25/16 10:00 104 06/25/16 09:44 18 06/25/16 09:00 97.5 113 24 168/95 100 06/25/16 08:37 40 06/25/16 08:20 100 40 06/25/16 08:00 101 06/25/16 08:00 98.2 101 20 150/85 100 06/25/16 08:00 40 06/25/16 06:00 97 06/25/16 04:31 100 40 06/25/16 04:00 95 06/25/16 04:00 40 06/25/16 04:00 97.9 95 16 142/78 100 06/25/16 02:00 97 06/25/16 00:37 100 40 06/25/16 00:00 98.4 100 16 140/77 100 06/25/16 00:00 100 06/25/16 00:00 40 06/24/16 22:00 102 06/24/16 21:39 100 40 06/24/16 20:00 97 06/24/16 20:00 98.2 97 19 141/81 100 06/24/16 20:00 40 06/24/16 18:00 95 06/24/16 16:15 100 40 06/24/16 16:00 98.1 91 21 135/75 100 06/24/16 16:00 91 06/24/16 16:00 35 06/24/16 14:00 97 I/O 06/24/16 06/24/16 06/24/16 06/25/16 06/25/16 06/25/16 07:00 15:00 23:00 07:00 15:00 23:00 Intake Total 1032 ml 1540 ml 975 ml 306 ml Output Total 850 ml 1700 ml 3850 ml 950 ml Balance 182 ml -160 ml -2875 ml -644 ml Intake IV Total 733 ml 1021 ml 550 ml 30 ml Tube Feeding 299 ml 399 ml 305 ml 276 ml Other 120 ml 120 ml Output Urine Total 800 ml 1050 ml 3750 ml 900 ml Stool Total 50 ml 650 ml 100 ml 50 ml Imaging Last Impressions Chest X-Ray 06/18/16 0000 Signed Impressions: Service Date/Time: Saturday, June 18, 2016 02:40 - CONCLUSION: Stable mild right lower lung infiltrate. Andi Luna MD Abdomen/Pelvis CT 06/17/16 0000 Signed Impressions: Service Date/Time: Friday, June 17, 2016 04:12 - CONCLUSION: 1. New bibasilar atelectasis. 2. There is some mild dilatation of the small bowel. There is a mild to moderate distention of the colon down to the rectum suggestive of a diffuse adynamic ileus. No definite mechanical obstruction is seen. 3. Otherwise, no other significant changes compared to the prior study. Andi Luna MD Abdomen X-Ray 06/16/16 0000 Signed Impressions: Service Date/Time: Thursday, June 16, 2016 17:15 - CONCLUSION: 1. Nonspecific bowel gas pattern which may represent a mild ileus or gastroenteritis. Rico Pedraza MD Brain MRI 06/15/16 0000 Signed Impressions: Service Date/Time: Wednesday, June 15, 2016 09:10 - CONCLUSION: No acute abnormality seen. 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 Reginaldo Cain MD Head Magnetic Resonance Angiography 06/14/16 0000 Signed Impressions: Service Date/Time: Tuesday, June 14, 2016 18:23 - CONCLUSION: No evidence of vessel truncation or aneurysm. Simone Graham MD Liver Ultrasound 06/13/16 0000 Signed Impressions: Service Date/Time: Monday, June 13, 2016 09:42 - CONCLUSION: 1. Small amount free fluid identified medial to the lower pole of the right kidney. 2. Slight increased hepatic echotexture suggesting some degree of fatty infiltration. 3. Please note the body and tail of the pancreas are obscured by overlying bowel gas. The head neck and uncinate process are sonographically intact. Mauro Leslie MD Head CT 06/12/16 1657 Signed Impressions: Service Date/Time: May 21:37 - CONCLUSION: Unremarkable study. Jose Martinez MD Renal Ultrasound 06/12/16 0000 Signed Impressions: Service Date/Time: May 23:51 - CONCLUSION: 1. Mild pelvocaliectasis on the right. No hydronephrosis involving either kidney. Simone Woody Jr., MD Chest CT 06/12/16 0000 Signed Impressions: Service Date/Time: May 21:39 - CONCLUSION: Right upper lobe parenchymal process may represent pneumonia, however follow up is suggested with repeat noncontrast chest CT in 2-4 weeksafter appropriate clinical therapy. Jose Martinez MD Physical Exam HEENT: Normocephalic; no jaundice. CHEST: OETT to vent. Course breath sounds. CARDIAC: RRR ABDOMEN: Soft, round, nondistended, nontender; no hepatosplenomegaly; bowel sounds are present in all four quadrants. Flexiseal with liquid stool EXTREMITIES: Generalized edema. Neuro: Sedated on vent. (An Sullivan) Assessment and Plan Plan ASSESSMENT: - Elevated LFTs, unclear etiology. On admission, she was noted to have T. Bili 0.5, AST 234, ALT 115, ALk Phosph 70 and they peaked on 06/16 at T. Bili 0.5, AST 557, ALT 225, Alk Phosph 68. It is unclear if she has any history of liver disease or if she ever abused alcohol. Liver Ultrasound (06/13/16)----> 1. Small amount free fluid identified medial to the lower pole of the right kidney. 2. Slight increased hepatic echotexture suggesting some degree of fatty infiltration. 3. Please note the body and tail of the pancreas are obscured by overlying bowel gas. The head neck and uncinate process are sonographically intact. Hepatitis panel negative. She does have sepsis/UTI with GNR/E.Coli and is on both Keppra and Zosyn. Liver workup- Hepatitis panel negative, DONNA negative, AMA negative, ASMA negative, AFP 4.0, ceruloplasmin 3, alpha 1 antitrypsin 256. 24 hour urine for copper significantly elevated at 558. Will get consult Ophth to evaluate for Ailyn-Andrew rings. LFTs have been improving. Will wait for Ophth evaluation and hold on liver biopsy at this time. Even if she does have Jeffersno's disease, it is unlikely that she would be a good candidate for chelating agents. LFTs improving. T. Bili 0.1, AST 62, [id number], Alk [id number]. - Low Ceruloplasmin at 3. 24 hour urine for copper significantly elevated at 558. Will get consult Ophth to evaluate for Ailyn-Andrew rings. LFTs have been improving. Will wait for Ophth evaluation and hold on liver biopsy at this time. Even if she does have Jefferson's disease, it is unlikely that she would be a good candidate for chelating agents. - Mild ileus. Resolved. Tolerating TF. PLAN: - TF as tolerated - Consult Ophthalmology to evaluate for Ailyn-Piper rings - Continue Miralax - Continue Reglan - Monitor LFTs - Avoid hepatotoxic meds - Supportive care - Pt seen and examined by Dr. Davis and myself and this note is written on his behalf (An Sullivan) Physician Comments Seen and examined with MICHELLE< reconsulted for elevated urine copper levels ordered as part of roa for elevated lfts. Unable to provide much history. Opthalmology consult ordered.Clinical situation too poor to consider liver biopsy, but will re evaluate once optho exam completed. (Teodoro Davis MD) An Sullivan June 25, 2016 13:49 Teodoro Davis MD June 25, 2016 15:42
--- NOTE | 2016-06-25 15:26 | HHI.HCPN ---
Reason for visit a. To assist with evaluation and management of symptoms including: Dyspnea , encephalopathy b. To assist medical decision maker(s) with: better understanding of current medical conditions; weighing benefits/burdens of medical treatment options; making medical treatment decisions. . Subjective/Interval History INTERVAL NOTE: The patient remains afebrile. She was able to be medically extubated today, and she seems to be breathing fairly peacefully at this time. Her oxygen saturation is 99%. She is quite lethargic, nonverbal, does not follow simple commands. The again notes that she had been declining the few weeks prior to admission and had become nonverbal at home. . Family/friend interactions Discussion by telephone with Josiah. He acknowledged that the patient had been declining and was nonverbal the 3 or 4 weeks prior to admission. He is glad that she is extubated, and hopes that there will be some improvements. . Advance Directives Living Will: Completed, but not made available Advance Directive Specifics Documented care wishes: Reportedly has a living will, and we have obtained it from Dr. Charles's office. . Significant change in goals: No change, the wants continued aggressive goals. . Objective Vital Signs Date Time Temp Pulse Resp B/P Pulse Ox O2 Delivery O2 Flow Rate FiO2 06/25/16 12:32 100 Nasal Cannula 4.00 06/25/16 12:17 100 Nasal Cannula 4 36 06/25/16 12:00 97.8 101 19 153/84 100 06/25/16 12:00 101 06/25/16 11:00 97.9 105 17 147/82 100 06/25/16 10:00 97.7 104 21 154/82 100 06/25/16 10:00 104 06/25/16 09:44 18 06/25/16 09:00 97.5 113 24 168/95 100 06/25/16 08:37 40 06/25/16 08:20 100 40 06/25/16 08:00 101 06/25/16 08:00 98.2 101 20 150/85 100 06/25/16 08:00 40 06/25/16 06:00 97 06/25/16 04:31 100 40 06/25/16 04:00 95 06/25/16 04:00 40 06/25/16 04:00 97.9 95 16 142/78 100 06/25/16 02:00 97 06/25/16 00:37 100 40 06/25/16 00:00 98.4 100 16 140/77 100 06/25/16 00:00 100 06/25/16 00:00 40 06/24/16 22:00 102 06/24/16 21:39 100 40 06/24/16 20:00 97 06/24/16 20:00 98.2 97 19 141/81 100 06/24/16 20:00 40 06/24/16 18:00 95 06/24/16 16:15 100 40 06/24/16 16:00 98.1 91 21 135/75 100 06/24/16 16:00 91 06/24/16 16:00 35 Intake & Output 06/25/16 06/25/16 07:00 19:00 Intake Total 1281 ml Output Total 4800 ml Balance -3519 ml Intake IV Total 580 ml Tube Feeding 581 ml Other 120 ml Output Urine Total 4650 ml Stool Total 150 ml Physical Exam CONSTITUTIONAL/GENERAL: This is an adequately nourished patient, in no apparent distress. TUBES/LINES/DRAINS: Cortes catheter, IV SKIN: No jaundice, rashes, or lesions. No wounds seen anteriorly. Skin temperature appropriate. Not diaphoretic. NECK: Trachea midline. Supple, nontender. No palpable thyroid enlargement or nodularity. CARDIOVASCULAR: Irregular rhythm without murmurs, gallops, or rubs. No JVD. Peripheral pulses symmetric. RESPIRATORY/CHEST: Symmetric, unlabored respirations. Scattered rhonchi. GASTROINTESTINAL: Abdomen soft, non-tender, nondistended. No hepato-splenomegaly , or palpable masses. No guarding. Bowel sounds present. GENITOURINARY: Without palpable bladder distension. Cortes catheter in place. MUSCULOSKELETAL: Extremities without clubbing, cyanosis, or edema. No joint tenderness or effusion noted. No calf tenderness. No mottling or clubbing. NEUROLOGICAL: Eyes are open, appears awake, but does not track and does not follow simple command, lethargic PSYCHIATRIC: No obvious anxiety, restlessness . Diagnostic Tests Laboratory Laboratory Tests Test 06/23/16 06/24/16 03:00 04:15 White Blood Count 6.7 TH/MM3 6.1 TH/MM3 (4.0-11.0) (4.0-11.0) Red Blood Count 2.81 MIL/MM3 2.71 MIL/MM3 (4.00-5.30) (4.00-5.30) Hemoglobin 7.3 GM/DL 7.2 GM/DL (11.6-15.3) (11.6-15.3) Hematocrit 22.4 % 21.2 % (35.0-46.0) (35.0-46.0) Mean Corpuscular Volume 79.5 FL 78.1 FL (80.0-100.0) (80.0-100.0) Mean Corpuscular Hemoglobin 25.9 PG 26.5 PG (27.0-34.0) (27.0-34.0) Mean Corpuscular Hemoglobin 32.5 % 34.0 % Concent (32.0-36.0) (32.0-36.0) Red Cell Distribution Width 16.1 % 16.0 % (11.6-17.2) (11.6-17.2) Platelet Count 43 TH/MM3 72 TH/MM3 (150-450) (150-450) Mean Platelet Volume 10.7 FL 9.7 FL (7.0-11.0) (7.0-11.0) Neutrophils (%) (Auto) 80.4 % 79.4 % (16.0-70.0) (16.0-70.0) Lymphocytes (%) (Auto) 14.6 % 15.3 % (9.0-44.0) (9.0-44.0) Monocytes (%) (Auto) 4.8 % (0.0-8.0) 4.9 % (0.0-8.0) Eosinophils (%) (Auto) 0.1 % (0.0-4.0) 0.2 % (0.0-4.0) Basophils (%) (Auto) 0.1 % (0.0-2.0) 0.2 % (0.0-2.0) Neutrophils # (Auto) 5.4 TH/MM3 4.9 TH/MM3 (1.8-7.7) (1.8-7.7) Lymphocytes # (Auto) 1.0 TH/MM3 0.9 TH/MM3 (1.0-4.8) (1.0-4.8) Monocytes # (Auto) 0.3 TH/MM3 0.3 TH/MM3 (0-0.9) (0-0.9) Eosinophils # (Auto) 0.0 TH/MM3 0.0 TH/MM3 (0-0.4) (0-0.4) Basophils # (Auto) 0.0 TH/MM3 0.0 TH/MM3 (0-0.2) (0-0.2) CBC Comment AUTO DIFF AUTO DIFF Differential Comment AUTO DIFF FINAL DIFF CONFIRMED MANUAL Platelet Estimate LOW (NORMAL) LOW (NORMAL) Platelet Morphology Comment NORMAL NORMAL (NORMAL) (NORMAL) Sodium Level 144 MEQ/L 142 MEQ/L (136-145) (136-145) Potassium Level 3.8 MEQ/L 3.6 MEQ/L (3.5-5.1) (3.5-5.1) Chloride Level 110 MEQ/L 109 MEQ/L (98-107) (98-107) Carbon Dioxide Level 26.5 MEQ/L 26.5 MEQ/L (21.0-32.0) (21.0-32.0) Anion Gap 8 MEQ/L (5-15) 7 MEQ/L (5-15) Blood Urea Nitrogen 10 MG/DL (7-18) 10 MG/DL (7-18) Creatinine 0.37 MG/DL 0.31 MG/DL (0.50-1.00) (0.50-1.00) Estimat Glomerular Filtration 219 ML/MIN 269 ML/MIN Rate (>89) (>89) Random Glucose 124 MG/DL 144 MG/DL (74-106) (74-106) Calcium Level 8.1 MG/DL 8.0 MG/DL (8.5-10.1) (8.5-10.1) Total Bilirubin LESS THAN 0.1 0.1 MG/DL MG/DL (0.2-1.0) (0.2-1.0) Aspartate Amino Transf 67 U/L (15-37) 62 U/L (15-37) (AST/SGOT) Alanine Aminotransferase 147 U/L (10-53) 133 U/L (10-53) (ALT/SGPT) Alkaline Phosphatase 114 U/L 118 U/L (45-117) (45-117) Total Protein 6.1 GM/DL 5.9 GM/DL (6.4-8.2) (6.4-8.2) Albumin 1.5 GM/DL 1.6 GM/DL (3.4-5.0) (3.4-5.0) Differential Total Cells 100 Counted Neutrophils % (Manual) 70 % (16-70) Band Neutrophils % 6 % (0-6) Lymphocytes % 17 % (9-44) Monocytes % 4 % (0-8) Neutrophils # (Manual) 4.8 TH/MM3 (1.8-7.7) Metamyelocytes 3 % (0-1) Result Diagram: 06/24/16 0415 06/24/16 0415 Procedures INTUBATION 06/12/16 EXTUBATION 06/25/16 . Assessment and Plan Disease Oriented Problem List: (1) respiratory failure (2) UTI/sepsis (3) history of ischemic strokes 2010, with right hemiplegia (4) encephalopathy, acute and chronic (5) hypertension (6) anemia (7) elevated LFTs, improving (8) acute kidney injury, resolved (9) hypernatremia, resolved Symptom Scale: (1) dyspnea (2) encephalopathy Pertinent Non-Medical Issues Psychosocial: for 13 years, 2 daughters including a 12-year-old from previous relationships, worked as an PLATFORM MATERIAL HANDLER MANAGER for many years. Spiritual: Spirituality has been very important for the patient, and the patient 's does believe that she would appreciate processing operator visits. Legal: The patient lacks capacity for decision making, and it is very unlikely that she will regain that capacity. Her is the healthcare proxy decision-maker, as there is no reported health care surrogacy form. Ethical issues impacting care: Important Contacts : Josiah Velazquez [phone] NOTE: The patient's wants to be the primary point of contact, as he does not want the patient's older daughter trying to make decisions about the patient's care. . Prognosis The patient's prognosis is quite poor. She was already a debilitated bedbound hemiplegic post stroke patient, at risk for infections and other complications, and now she is more debilitated and with respiratory failure and significant encephalopathy. She will be appropriate for hospice services if/when the patient's decides to transition to comfort care. . Code Status: Full Code Plan * FULL CODE, confirmed by patient's 06/24/16 * GOALS: The patient's reports he wants "everything possible done to save my 's life." Now that she has been extubated, he would want her reintubated if she has respiratory failure again. He is aware that "there will come a time when everything is worse and she won't get better" and he may want to "let her go naturally then." * DECISION-MAKING: The patient lacks capacity for decision making, and it is very unlikely that she will regain that capacity. Her is the healthcare proxy decision-maker, as there is no reported health care surrogacy form. * NOTE: The patient's wants to be the primary point of contact, as he does not want the patient's older daughter (Natasha) trying to make decisions about the patient's care. * SYMPTOMS: Dyspnea: She is now off the ventilator and seems to be breathing without distress.. She has not had additional restlessness or agitation, and has no obvious pain at this time. No additional medication recommendations are needed at this time. * Palliative Care will continue to follow the patient during this hospitalization. . Time Spent Total Floor Time (mins): 38 Face to Face Time (mins): 11 >50% Counseling/Coord of Care: Yes (d/w RN) Attestation To help prompt me to consider important information that might be impacting today's encounter and assessment, information from prior notes written by myself or my colleagues may have been "brought forward" into today's note. My signature on this note, however, is an attestation that I personally performed the exam, history, and/or decision-making noted today, and, unless otherwise indicated, the interactions with patient, family, and staff as well as the review of records all occurred today. I also attest that the listed assessment and stated plan reflect my best clinical judgment today based on the combination of historical information, prior notes, and today's exam/ interactions. When time spent is documented, it refers only to time spent today by the signer, or if indicated, combined time spent today by collaborating physician/nurse practitioner. Phyllis Ibrahim MD June 25, 2016 15:26
[2016-06-25] MEDS: cefTRIAXone INJ 2,000 MG in SODIUM CHLORIDE 0.9% INJ 100 ML IV SCH (17:47)
--- NOTE | 2016-06-25 19:46 | HHI.IDPN ---
Subjective Subjective Remarks extubated afebrile not following commands, but tracks intermittently cont to have liquid stool to 800 cc/d tolerates TF at goal not much secretions Antibiotics CFTX Past Medical History Reviewed Allergies: Coded Allergies: DO NOT USE (Verified Allergy, Mild, Hallucinations, 06/12/16) Objective . Vital Signs Date Time Temp Pulse Resp B/P Pulse Ox O2 Delivery O2 Flow Rate FiO2 06/25/16 18:00 112 06/25/16 16:00 104 06/25/16 16:00 98.5 104 20 152/83 100 06/25/16 16:00 100 Nasal Cannula 4.00 06/25/16 14:00 106 06/25/16 12:32 100 Nasal Cannula 4.00 06/25/16 12:17 100 Nasal Cannula 4 36 06/25/16 12:00 97.8 101 19 153/84 100 06/25/16 12:00 101 06/25/16 11:00 97.9 105 17 147/82 100 06/25/16 10:00 97.7 104 21 154/82 100 06/25/16 10:00 104 06/25/16 09:44 18 06/25/16 09:00 97.5 113 24 168/95 100 06/25/16 08:37 40 06/25/16 08:20 100 40 06/25/16 08:00 101 06/25/16 08:00 98.2 101 20 150/85 100 06/25/16 08:00 40 06/25/16 06:00 97 06/25/16 04:31 100 40 06/25/16 04:00 95 06/25/16 04:00 40 06/25/16 04:00 97.9 95 16 142/78 100 06/25/16 02:00 97 06/25/16 00:37 100 40 06/25/16 00:00 98.4 100 16 140/77 100 06/25/16 00:00 100 06/25/16 00:00 40 06/24/16 22:00 102 06/24/16 21:39 100 40 06/24/16 20:00 97 06/24/16 20:00 98.2 97 19 141/81 100 06/24/16 20:00 40 06/24/16 06/24/16 06/25/16 15:00 23:00 07:00 Intake Total 1540 ml 975 ml 306 ml Output Total 1700 ml 3850 ml 950 ml Balance -160 ml -2875 ml -644 ml Intake IV Total 1021 ml 550 ml 30 ml Tube Feeding 399 ml 305 ml 276 ml Other 120 ml 120 ml Output Urine Total 1050 ml 3750 ml 900 ml Stool Total 650 ml 100 ml 50 ml . Laboratory Tests Test 06/24/16 04:15 White Blood Count 6.1 TH/MM3 Red Blood Count 2.71 MIL/MM3 Hemoglobin 7.2 GM/DL Hematocrit 21.2 % Mean Corpuscular Volume 78.1 FL Mean Corpuscular Hemoglobin 26.5 PG Mean Corpuscular Hemoglobin 34.0 % Concent Red Cell Distribution Width 16.0 % Platelet Count 72 TH/MM3 Mean Platelet Volume 9.7 FL Neutrophils (%) (Auto) 79.4 % Lymphocytes (%) (Auto) 15.3 % Monocytes (%) (Auto) 4.9 % Eosinophils (%) (Auto) 0.2 % Basophils (%) (Auto) 0.2 % Neutrophils # (Auto) 4.9 TH/MM3 Lymphocytes # (Auto) 0.9 TH/MM3 Monocytes # (Auto) 0.3 TH/MM3 Eosinophils # (Auto) 0.0 TH/MM3 Basophils # (Auto) 0.0 TH/MM3 CBC Comment AUTO DIFF Differential Total Cells 100 Counted Neutrophils % (Manual) 70 % Band Neutrophils % 6 % Lymphocytes % 17 % Monocytes % 4 % Neutrophils # (Manual) 4.8 TH/MM3 Metamyelocytes 3 % Differential Comment FINAL DIFF MANUAL Platelet Estimate LOW Platelet Morphology Comment NORMAL Laboratory Tests Test 06/24/16 04:15 Sodium Level 142 MEQ/L Potassium Level 3.6 MEQ/L Chloride Level 109 MEQ/L Carbon Dioxide Level 26.5 MEQ/L Anion Gap 7 MEQ/L Blood Urea Nitrogen 10 MG/DL Creatinine 0.31 MG/DL Estimat Glomerular Filtration 269 ML/MIN Rate Random Glucose 144 MG/DL Calcium Level 8.0 MG/DL Total Bilirubin 0.1 MG/DL Aspartate Amino Transf 62 U/L (AST/SGOT) Alanine Aminotransferase 133 U/L (ALT/SGPT) Alkaline Phosphatase 118 U/L Total Protein 5.9 GM/DL Albumin 1.6 GM/DL Imaging Last Impressions Chest X-Ray 06/18/16 0000 Signed Impressions: Service Date/Time: Saturday, June 18, 2016 02:40 - CONCLUSION: Stable mild right lower lung infiltrate. Andi Luna MD Abdomen/Pelvis CT 06/17/16 0000 Signed Impressions: Service Date/Time: Friday, June 17, 2016 04:12 - CONCLUSION: 1. New bibasilar atelectasis. 2. There is some mild dilatation of the small bowel. There is a mild to moderate distention of the colon down to the rectum suggestive of a diffuse adynamic ileus. No definite mechanical obstruction is seen. 3. Otherwise, no other significant changes compared to the prior study. Andi Luna MD Abdomen X-Ray 06/16/16 0000 Signed Impressions: Service Date/Time: Thursday, June 16, 2016 17:15 - CONCLUSION: 1. Nonspecific bowel gas pattern which may represent a mild ileus or gastroenteritis. Rico Pedraza MD Brain MRI 06/15/16 0000 Signed Impressions: Service Date/Time: Wednesday, June 15, 2016 09:10 - CONCLUSION: No acute abnormality seen. 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 Reginaldo Cain MD Head Magnetic Resonance Angiography 06/14/16 0000 Signed Impressions: Service Date/Time: Tuesday, June 14, 2016 18:23 - CONCLUSION: No evidence of vessel truncation or aneurysm. Simone Graham MD Liver Ultrasound 06/13/16 0000 Signed Impressions: Service Date/Time: Monday, June 13, 2016 09:42 - CONCLUSION: 1. Small amount free fluid identified medial to the lower pole of the right kidney. 2. Slight increased hepatic echotexture suggesting some degree of fatty infiltration. 3. Please note the body and tail of the pancreas are obscured by overlying bowel gas. The head neck and uncinate process are sonographically intact. Mauro Leslie MD Head CT 06/12/16 1657 Signed Impressions: Service Date/Time: May 21:37 - CONCLUSION: Unremarkable study. Jose Martinez MD Renal Ultrasound 06/12/16 0000 Signed Impressions: Service Date/Time: May 23:51 - CONCLUSION: 1. Mild pelvocaliectasis on the right. No hydronephrosis involving either kidney. Simone Woody Jr., MD Chest CT 06/12/16 0000 Signed Impressions: Service Date/Time: May 21:39 - CONCLUSION: Right upper lobe parenchymal process may represent pneumonia, however follow up is suggested with repeat noncontrast chest CT in 2-4 weeksafter appropriate clinical therapy. Jose Martinez MD Physical Exam GENERAL: on NC O2, NAD SKIN: No jaundice, rashes, or lesions. Cool and dry HEAD: Atraumatic. Normocephalic. EYES: Pupils equal and round and reactive. No scleral icterus. No injection or drainage. ENT: Nose without bleeding or purulent drainage. NCARDIOVASCULAR: Regular rate and rhythm without murmurs, gallops, or rubs. No JVD. Peripheral pulses symmetric. RESPIRATORY/CHEST: Bilateral diffuse coarse rhonchi GASTROINTESTINAL: Abdomen soft, no reaction to palpation, minimally distended. No guarding. Bowel sounds present. Incontinent of liquid brown stool GENITOURINARY: Cortes catheter in place with clear yellow urine MUSCULOSKELETAL: Extremities without clubbing, cyanosis, + small amount of edema. No mottling or clubbing. NEUROLOGICAL: off sedation opens eyes to voice , not following commands; tracks consistently PSYCHIATRIC: unable to assess LINE no evidence of infection : Cortes in place urine looks clear Assessment & Plan Remarks Sepsis (fever, hypoxi, leukocytosis, lactic acidosis, multi organ function) - ? source not clear, has E coli in UC but her UA is unremarkable - CT with RUL infiltrate, ?PNA - growing Staph aureus, MSSA Lymphocytic pleocytosis in CSF - C/S negative - VRDF negative, RPR neg - all clx are negative ARF/CKD, creatinine now normal Respiratory failure, clinically resolved - extubated Leukocytosis, Diarrhea, no e/o C.diff UTI, E.coli Persistent lactic acidosis PLAN complete CFTX for E.coli UTI and PNA Briseida Ortiz MD June 25, 2016 19:46
[2016-06-25] MEDS: FAMOTIDINE 20 MG/2 ML VIAL IV PUSH SCH (20:43)
--- NOTE | 2016-06-25 20:43 | HHI.CCPN ---
Subjective Remarks/Hospital Course 56-year-old female brought in by EMS emergently as altered mental status, hypoxia and temperature 104. Patient has a history of CVA many years ago. Per caregiver she didn't feel well since yesterday and wasn't taking any of medications including baclofen. Patient was unable to communicate due to her altered mental status. As per EMS not much history was available from the family but she has history of CVA as baseline but communicates. In the emergency department patient's oxygen saturation was low 70s upon EMS arrival. They had her on oxygen via nonrebreather and sats of 93%. GCS was 6 and she was intubated by ER attending for an airway protection. 06/13 Patient is sedated with Versed and on Bicarb drip. Renal function is improving with Cr: 2.12 from 3.19 UO: 1350ml since yesterday. Afebrile. 06/14 Patient remains sedated and intubated. Afebrile. Renal function continue to improve with Cr: 1.18 today from 1.53. 06/15 No acute events overnight. Off sedation remains intubated. Patient tolerated CPAP all day yesterday. MRA brain last night is unremarkable. T:99.9 06/16 Patient remains intubated off sedation. Afebrile. Tolerated CPAP all day yesterday remains encephalopathic. 06/17 No acute events overnight. Patient is able to open her eyes but does not follow commands. T: 100.1 last night. 06/18: Remains encephalopathic, orally intubated on mechanical ventilation. 06/19: Remains encephalopathic, orally intubated on mechanical ventilation. Daily C Pap trials ongoing. 06/20: Remains encephalopathic, orally intubated on mechanical ventilation. Daily C Pap trials. Tube feeds resumed. 06/21: More awake however not following commands. Remains orally intubated on mechanical ventilation. Tolerating tube feeds. Daily C Pap trials ongoing. 06/22: Encephalopathic though more awake, arousable. Not following commands. Remains orally intubated on mechanical ventilation. Tolerating tube feeds. Daily C Pap trials. 06/23: Awake, not following commands. Remains orally intubated on mechanical ventilation. Failing C Pap trials. Tolerating tube feeds. 06/24: Opening eyes, blinks on command. Remains orally intubated on mechanical ventilation. Tolerating tube feeds. Gets tachypneic with low volumes on dropping pressure-support at C Pap trials. We'll initiate diuresis as patient isn't significantly positive fluid balance since admission due to fluids administered for sepsis which now appears to be under control. 06/25: Awake, appears to focus. Extubated today following C Pap trial. Continue diuresis. Objective Vital Signs Date Time Temp Pulse Resp B/P Pulse Ox O2 Delivery O2 Flow Rate FiO2 06/25/16 18:00 112 06/25/16 16:00 98.5 20 152/83 100 06/25/16 16:00 Nasal Cannula 4.00 06/25/16 12:17 36 Intake and Output 06/24/16 06/24/16 06/25/16 08:00 16:00 00:00 Intake Total 1032 ml 1540 ml 975 ml Output Total 850 ml 1700 ml 3850 ml Balance 182 ml -160 ml -2875 ml Result Diagram: 06/24/16 0415 06/24/16 0415 Imaging Last Impressions Abdomen/Pelvis CT 06/17/16 0000 Signed Impressions: Service Date/Time: Friday, June 17, 2016 04:12 - CONCLUSION: 1. New bibasilar atelectasis. 2. There is some mild dilatation of the small bowel. There is a mild to moderate distention of the colon down to the rectum suggestive of a diffuse adynamic ileus. No definite mechanical obstruction is seen. 3. Otherwise, no other significant changes compared to the prior study. Andi Luna MD Chest X-Ray 06/16/16 0000 Signed Impressions: Service Date/Time: Thursday, June 16, 2016 04:51 - CONCLUSION: Right basilar density likely atelectasis.. Chadd Kahn MD Abdomen X-Ray 06/16/16 0000 Signed Impressions: Service Date/Time: Thursday, June 16, 2016 17:15 - CONCLUSION: 1. Nonspecific bowel gas pattern which may represent a mild ileus or gastroenteritis. Rico Pedraza MD Brain MRI 06/15/16 0000 Signed Impressions: Service Date/Time: Wednesday, June 15, 2016 09:10 - CONCLUSION: No acute abnormality seen. 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 Reginaldo Cain MD Head Magnetic Resonance Angiography 06/14/16 0000 Signed Impressions: Service Date/Time: Tuesday, June 14, 2016 18:23 - CONCLUSION: No evidence of vessel truncation or aneurysm. Simone Graham MD Liver Ultrasound 06/13/16 0000 Signed Impressions: Service Date/Time: Monday, June 13, 2016 09:42 - CONCLUSION: 1. Small amount free fluid identified medial to the lower pole of the right kidney. 2. Slight increased hepatic echotexture suggesting some degree of fatty infiltration. 3. Please note the body and tail of the pancreas are obscured by overlying bowel gas. The head neck and uncinate process are sonographically intact. Mauro Leslie MD Head CT 06/12/16 1657 Signed Impressions: Service Date/Time: May 21:37 - CONCLUSION: Unremarkable study. Jose Martinez MD Renal Ultrasound 06/12/16 0000 Signed Impressions: Service Date/Time: May 23:51 - CONCLUSION: 1. Mild pelvocaliectasis on the right. No hydronephrosis involving either kidney. Simone Woody Jr., MD Chest CT 06/12/16 0000 Signed Impressions: Service Date/Time: May 21:39 - CONCLUSION: Right upper lobe parenchymal process may represent pneumonia, however follow up is suggested with repeat noncontrast chest CT in 2-4 weeksafter appropriate clinical therapy. Jose Martinez MD Objective Remarks GENERAL: Elderly woman laying in bed, on nasal cannula SKIN: Warm and dry. HEAD: Normocephalic. EYES: Pallor present, No scleral icterus. No injection or drainage. NECK: Supple, trachea midline. No JVD or lymphadenopathy. CARDIOVASCULAR: Regular rate and rhythm without murmurs, gallops, or rubs. RESPIRATORY: Breath sounds equal bilaterally. Occasional rhonchi, No accessory muscle use. GASTROINTESTINAL: Abdomen soft, non-tender, nondistended. MUSCULOSKELETAL: No cyanosis, or edema. EXTREMITIES: No clubbing cyanosis or edema Neuro: Awake, blinks eyes on command, has spontaneous eye opening. Has right hemiplegia from previous stroke however not moving left side on command currently. A/P Assessment and Plan Acute respiratory failure Encephalopathy SIRS/sepsis Acute kidney injury Rhabdo Hypernatremia Hypokalemia Anemia Lactic acidemia Leukocytosis- resolved Elevated LFT UTI Plan Neuro: Off sedation. Monitor neuro status and avoid sedatives. Ammonia level: 40, TSH 2.5. Continue with Lactulose. CT brain: No acute findings. UDS+ +Benzos MRA brain 06/14- Unremarkable. s/p LP showed clear CSF and 15 WBC. EEG: Bihemispheric slowing, small sharp waves b/l neuro is following- Dr. Boggs, On Keppra 500mg Q12 Pulm: Continue with vent support keep sat >92% Bronchodilators, ICU vent bundle. SBT trials as cherie. Follow-up chest x-ray on 06/25 CV: Monitor HR and BP keep MAP>65mmHg. Initiated diuresis with Lasix on 06/24 to mobilize fluid. : Monitor renal function, I/O's, avoid nephrotoxins. Electrolytes replacement per protocol. Renal US: No hydronephrosis. Renal is following- Dr. Corral Saline lock IV fluids in view of significant positive fluid balance and initiated diuresis to mobilize fluid on 06/24 GI/liver: On Pepcid 20meq IV qhs, tube feeds on hold (Glucerna 1.5 with goal rate 45ml/hr) Monitor LFT's ( trending down), US liver: Fatty liver. Elevated urinary copper - GI is following. CT abdomen/pelvis 06/17- findings suggestive of adynamic ileus. No mechanical obstruction. On Reglan 5mg Iv q8 PRN, Miralax, Lactulose ID: Continue abx per ID (switched from Zyvox,Zosyn to Rocephin on 06/19) Patient was given Vanco, Zosyn, Zithromax in ED. 06/12 Urine cx: E.coli 06/12 BC: No growth 06/12 CSG: NGTD 06/15 urine: E coli, sputum: MSSA Heme: Monitor CBC, coags, Hep plt ab negative. Thrombocytopenia likely 2nd sepsis Endo: SSI for glycemic control, TSH level: 2.5 GI Prophylaxis with Pepcid DVT prophylaxis with SCD, not on AC prophylaxis 2nd to thrombocytopenia Palliative care following to assist with deciding goals of therapy. Patient's has been wishes to continue full CODE STATUS at this time. Michael Torre MD June 25, 2016 20:43
[2016-06-26] VITALS (26 sets, daily range): BP systolic 92–191; BP diastolic 38–104; PULSE 100–134; RESP 16–32; TEMP 97.8–99.2; O2SAT 78–100
[2016-06-26] MEDS: METOPROLOL TARTRATE 5 MG/5 ML VIAL IV PUSH PRN ×6 (01:00→22:54)
[2016-06-26 03:25] LABS: BLOOD GAS BASE EXCESS 3.4 mmol/L (-2-2); BLOOD GAS CARBOXYHEMOGLOBIN 1.4 % (0-4); BLOOD GAS HCO3 27 mmol/L (22-26); BLOOD GAS METHEMOGLOBIN 1.2 % (0-2); BLOOD GAS O2 HGB SATURATION 65 % (90-100); BLOOD GAS OXYGEN CONTENT 8.2 Vol % (12.0-20.0); BLOOD GAS PCO2 36 mmHg (38-42); BLOOD GAS PO2 36 mmHg (61-120); BLOOD GAS TOTAL HGB 8.9 G/DL (12.0-16.0); TEMP CORR TO 98.6
[2016-06-26 03:26] LABS: CRITICAL VALUE YES; DRAW SITE LT BRACHIAL; FIO2 50 %; LITER FLOW 6 L/M; NUMBER OF ARTERIAL PUNCTURES 2; OXYGEN DEVICE Venti Mask; STAT YES; ULNAR PULSE PRESENT
[2016-06-26] MEDS: CHLORHEXIDINE GLUCONATE 2 % 1 PACK (2 CLOTHS) TOP SCH (04:00)
[2016-06-26 05:14] LABS: INDIRECT BILIRUBIN 0.2 MG/DL (0.0-0.8); TOTAL BILIRUBIN ADULT 0.3 MG/DL (0.2-1.0)
[2016-06-26] MEDS: SODIUM CHLORIDE 0.9% FLUSH 10 ML FLUSH IV FLUSH PRN ×2 (07:50→17:49)
[2016-06-26] MEDS: CHLORHEXIDINE 0.12% (ORAL KIT) 15 ML CUP MT SCH ×3 (07:50→21:29)
--- NOTE | 2016-06-26 08:49 | HHI.HCSW ---
Sterile Preparation Technician Visit Advance Directive Advanced directives obtained from PCP, however, living will and health care surrogate do not have required 2 witnesses and living will is missing year/date completed. Health care surrogate does show intent to designate which is consistent with [place] Statutes for proxy decision making. . Nicole Woody, BEE WORKER June 26, 2016 08:49
[2016-06-26] MEDS: PREGABALIN 75 MG CAP PO SCH ×2 (09:00→21:28)
[2016-06-26] MEDS: POLYETHYLENE GLYCOL 17 GM PKG PO SCH (09:00)
[2016-06-26] MEDS: BACLOFEN 10 MG TAB PO SCH ×3 (09:00→17:49)
[2016-06-26] MEDS: LACTULOSE SYRUP 20 GM/30 ML CUP PO SCH ×2 (09:00→21:28)
[2016-06-26] MEDS: POTASSIUM CHLORIDE 25 MEQ EFFERVESCENT TAB NG SCH ×2 (09:00→21:28)
[2016-06-26] MEDS: FUROSEMIDE 20 MG/2 ML VIAL IV PUSH SCH (10:50)
[2016-06-26] MEDS: SODIUM CHLORIDE 0.9% FLUSH 10 ML FLUSH IV FLUSH SCH ×2 (10:50→20:11)
[2016-06-26] MEDS: levETIRAcetam INJ 500 MG in SODIUM CHLORIDE 0.9% INJ 100 ML IV SCH ×2 (10:50→21:28)
--- NOTE | 2016-06-26 11:39 | HHI.GIFU ---
GI Follow-up Note Consult Follow-up Subjective: Patient laying in bed comfortably, no new complaints, extubated today Objective: PHYSICAL EXAMINATION: Vitals signs stable No fever HEENT: Pupils round and reactive to light; normocephalic; atraumatic; no jaundice. Throat is clear. NECK: Neck is supple, no JVD, no lymphadenopathy. CHEST: Chest is clear to auscultation and percussion. CARDIAC: Regular rate and rhythm with no murmur gallop or rubs. ABDOMEN: Soft, nondistended, nontender; no hepatosplenomegaly; bowel sounds are present in all four quadrants. EXTREMITIES: No clubbing, cyanosis, or edema. SKIN: Normal; no rash; no jaundice. FIRE TECHNICIAN: No focal deficits; alert and oriented times three. Available Data (labs, X- Rays, Procedues) : Last Impressions Chest X-Ray 06/18/16 0000 Signed Impressions: Service Date/Time: Saturday, June 18, 2016 02:40 - CONCLUSION: Stable mild right lower lung infiltrate. Andi Luna MD Abdomen/Pelvis CT 06/17/16 0000 Signed Impressions: Service Date/Time: Friday, June 17, 2016 04:12 - CONCLUSION: 1. New bibasilar atelectasis. 2. There is some mild dilatation of the small bowel. There is a mild to moderate distention of the colon down to the rectum suggestive of a diffuse adynamic ileus. No definite mechanical obstruction is seen. 3. Otherwise, no other significant changes compared to the prior study. Andi Luna MD Abdomen X-Ray 06/16/16 0000 Signed Impressions: Service Date/Time: Thursday, June 16, 2016 17:15 - CONCLUSION: 1. Nonspecific bowel gas pattern which may represent a mild ileus or gastroenteritis. Rico Pedraza MD Brain MRI 06/15/16 0000 Signed Impressions: Service Date/Time: Wednesday, June 15, 2016 09:10 - CONCLUSION: No acute abnormality seen. 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 Reginaldo Cain MD Head Magnetic Resonance Angiography 06/14/16 0000 Signed Impressions: Service Date/Time: Tuesday, June 14, 2016 18:23 - CONCLUSION: No evidence of vessel truncation or aneurysm. Simone Graham MD Liver Ultrasound 06/13/16 0000 Signed Impressions: Service Date/Time: Monday, June 13, 2016 09:42 - CONCLUSION: 1. Small amount free fluid identified medial to the lower pole of the right kidney. 2. Slight increased hepatic echotexture suggesting some degree of fatty infiltration. 3. Please note the body and tail of the pancreas are obscured by overlying bowel gas. The head neck and uncinate process are sonographically intact. Mauro Leslie MD Head CT 06/12/16 1657 Signed Impressions: Service Date/Time: May 21:37 - CONCLUSION: Unremarkable study. Jose Martinez MD Renal Ultrasound 06/12/16 0000 Signed Impressions: Service Date/Time: May 23:51 - CONCLUSION: 1. Mild pelvocaliectasis on the right. No hydronephrosis involving either kidney. Simone Woody Jr., MD Chest CT 06/12/16 0000 Signed Impressions: Service Date/Time: May 21:39 - CONCLUSION: Right upper lobe parenchymal process may represent pneumonia, however follow up is suggested with repeat noncontrast chest CT in 2-4 weeksafter appropriate clinical therapy. Jose Martinez MD Laboratory Tests Test 06/26/16 06/26/16 03:02 04:02 Blood Gas Puncture Site LT BRACHIAL Blood Gas Patient Temperature 98.6 Blood Gas HCO3 27 mmol/L Blood Gas Base Excess 3.4 mmol/L Blood Gas Oxygen Saturation 65 % Arterial Blood pH 7.49 Arterial Blood Partial 36 mmHg Pressure CO2 Arterial Blood Partial 36 mmHg Pressure O2 Arterial Blood Oxygen Content 8.2 Vol % Arterial Blood 1.4 % Carboxyhemoglobin Arterial Blood Methemoglobin 1.2 % Blood Gas Hemoglobin 8.9 G/DL Oxygen Delivery Device Venti Mask Blood Gas Liter Flow 6 L/M Blood Gas Inspired Oxygen 50 % Total Bilirubin 0.3 MG/DL Direct Bilirubin 0.1 MG/DL Indirect Bilirubin 0.2 MG/DL Aspartate Amino Transf 52 U/L (AST/SGOT) Alanine Aminotransferase 129 U/L (ALT/SGPT) Alkaline Phosphatase 150 U/L Total Protein 7.5 GM/DL Albumin 2.2 GM/DL Allergies Coded Allergies Type Severity Reaction Last Updated Verified DO NOT USE Allergy Mild Hallucinations 06/12/16 Yes Active Scripts Medications Dose Route/Sig Days Date Category Temazepam 15 Mg Cap 15 Mg PO HS PRN 06/12/16 Reported Amlodipine (Amlodipine Besylate) 10 Mg Tab 10 Mg PO DAILY 06/12/16 Reported Meclizine (Meclizine HCl) 25 Mg Tab 25 Mg PO QID PRN 06/12/16 Reported Ranitidine (Ranitidine HCl) 150 Mg Tab 150 Mg PO BID 06/12/16 Reported Baclofen 10 Mg Tab 10 Mg PO TID 06/12/16 Reported Sertraline (Sertraline HCl) 100 Mg Tab 100 Mg PO DAILY 06/12/16 Reported Lyrica (Pregabalin) 75 Mg Cap 75 Mg PO BID 06/12/16 Reported ASSESSMENT/PLAN: seen and examined, Peg tube requested. Extubated today but failed speech evaluation. EGD/Peg planned for tomorrow. Discussed with nurse. It was a pleasure seeing Beatrice Velazquez. Thank you for this consult. Entered by: Teodoro Pierce MD June 26, 2016 11:39
[2016-06-26] MEDS ORDERED: MIDAZOLAM HCL 5 MG/ML VIAL (1 ML) ONE (12:49)
[2016-06-26] MEDS ORDERED: ETOMIDATE 20 MG/10 ML VIAL ONE (12:51)
--- NOTE | 2016-06-26 12:59 | PD.PROCEDR ---
Procedure Note Procedure After the risks and benefits were discussed the following procedure was performed: INTUBATION: The patient was put in optimal position for the procedure. Rapid sequence intubation was initiated by me using 5 milligrams of versed IV and 50 milligrams of Rocuronium IV. DL with Mac 4 blade, grade 1 view, single attempt. Moderate white secretion at glottic opening. The patient was intubated with a 8.0 cuffed endotracheal tube. Tube placement was confirmed by visualization of the tube and balloon passing through the cords, capnometry and subsequent chest x-ray. Breath sounds were equal and well aerated bilaterally postintubation. No breath sounds over stomach. Patient tolerated procedure well. Ivana Hair MD June 26, 2016 12:58
[2016-06-26] MEDS ORDERED: PROPOFOL 1000 MG/100 ML INJ 100 ML ONE (13:03)
--- NOTE | 2016-06-26 13:37 | HHI.CCPN ---
Subjective Remarks/Hospital Course 56-year-old female brought in by EMS emergently as altered mental status, hypoxia and temperature 104. Patient has a history of CVA many years ago. Per caregiver she didn't feel well since yesterday and wasn't taking any of medications including baclofen. Patient was unable to communicate due to her altered mental status. As per EMS not much history was available from the family but she has history of CVA as baseline but communicates. In the emergency department patient's oxygen saturation was low 70s upon EMS arrival. They had her on oxygen via nonrebreather and sats of 93%. GCS was 6 and she was intubated by ER attending for an airway protection. 06/13 Patient is sedated with Versed and on Bicarb drip. Renal function is improving with Cr: 2.12 from 3.19 UO: 1350ml since yesterday. Afebrile. 06/14 Patient remains sedated and intubated. Afebrile. Renal function continue to improve with Cr: 1.18 today from 1.53. 06/15 No acute events overnight. Off sedation remains intubated. Patient tolerated CPAP all day yesterday. MRA brain last night is unremarkable. T:99.9 06/16 Patient remains intubated off sedation. Afebrile. Tolerated CPAP all day yesterday remains encephalopathic. 06/17 No acute events overnight. Patient is able to open her eyes but does not follow commands. T: 100.1 last night. 06/18: Remains encephalopathic, orally intubated on mechanical ventilation. 06/19: Remains encephalopathic, orally intubated on mechanical ventilation. Daily C Pap trials ongoing. 06/20: Remains encephalopathic, orally intubated on mechanical ventilation. Daily C Pap trials. Tube feeds resumed. 06/21: More awake however not following commands. Remains orally intubated on mechanical ventilation. Tolerating tube feeds. Daily C Pap trials ongoing. 06/22: Encephalopathic though more awake, arousable. Not following commands. Remains orally intubated on mechanical ventilation. Tolerating tube feeds. Daily C Pap trials. 06/23: Awake, not following commands. Remains orally intubated on mechanical ventilation. Failing C Pap trials. Tolerating tube feeds. 06/24: Opening eyes, blinks on command. Remains orally intubated on mechanical ventilation. Tolerating tube feeds. Gets tachypneic with low volumes on dropping pressure-support at C Pap trials. We'll initiate diuresis as patient isn't significantly positive fluid balance since admission due to fluids administered for sepsis which now appears to be under control. 06/25: Awake, appears to focus. Extubated today following C Pap trial. Continue diuresis. 06/26: [facility] reconsult note. Patient was extubated yesterday 06/25 and apparently was doing well initially. Overnight was placed on a 100% percent nonrebreather. I was called to the bedside emergently by Denny PATINO, today around 12.30 pm, patient was more unresponsive and hypoxemic on 100% nonrebreather. On my evaluation patient's eyes were open but nonresponsive, shallow breathing. Oxygen saturation 80% on 100 percent nonrebreather. Emergently intubated and placed on mechanical ventilation. Moderate amount of white secretions at glottic opening. CXR shows RLL infiltrate with volume loss? aspiration. Sputum cx. Discuss with ID Dr. Ortiz, will place on broad-spectrum antibiotics with Zosyn Objective Vital Signs Date Time Temp Pulse Resp B/P Pulse Ox O2 Delivery O2 Flow Rate FiO2 06/26/16 12:00 126 06/26/16 12:00 100 Venturi Mask 50 06/26/16 08:00 13.00 06/26/16 08:00 98.2 27 128/82 Intake and Output 06/25/16 06/25/16 06/26/16 08:00 16:00 00:00 Intake Total 306 ml 101 ml 204 ml Output Total 950 ml 1500 ml 1750 ml Balance -644 ml -1399 ml -1546 ml Result Diagram: 06/24/16 0415 06/24/16 0415 Other Results Laboratory Tests Test 06/26/16 03:02 Blood Gas Puncture Site LT BRACHIAL Blood Gas Patient Temperature 98.6 Blood Gas HCO3 27 mmol/L (22-26) Blood Gas Base Excess 3.4 mmol/L (-2-2) Blood Gas Oxygen Saturation 65 % (90-100) Arterial Blood pH 7.49 (7.380-7.420) Arterial Blood Partial 36 mmHg (38-42) Pressure CO2 Arterial Blood Partial 36 mmHg Pressure O2 (61-120) Arterial Blood Oxygen Content 8.2 Vol % (12.0-20.0) Arterial Blood 1.4 % (0-4) Carboxyhemoglobin Arterial Blood Methemoglobin 1.2 % (0-2) Blood Gas Hemoglobin 8.9 G/DL (12.0-16.0) Oxygen Delivery Device Venti Mask Blood Gas Liter Flow 6 L/M Blood Gas Inspired Oxygen 50 % Imaging Last Impressions Abdomen/Pelvis CT 06/17/16 0000 Signed Impressions: Service Date/Time: Friday, June 17, 2016 04:12 - CONCLUSION: 1. New bibasilar atelectasis. 2. There is some mild dilatation of the small bowel. There is a mild to moderate distention of the colon down to the rectum suggestive of a diffuse adynamic ileus. No definite mechanical obstruction is seen. 3. Otherwise, no other significant changes compared to the prior study. Andi Luna MD Chest X-Ray 06/16/16 0000 Signed Impressions: Service Date/Time: Thursday, June 16, 2016 04:51 - CONCLUSION: Right basilar density likely atelectasis.. Chadd Kahn MD Abdomen X-Ray 06/16/16 0000 Signed Impressions: Service Date/Time: Thursday, June 16, 2016 17:15 - CONCLUSION: 1. Nonspecific bowel gas pattern which may represent a mild ileus or gastroenteritis. Rico Pedraza MD Brain MRI 06/15/16 0000 Signed Impressions: Service Date/Time: Wednesday, June 15, 2016 09:10 - CONCLUSION: No acute abnormality seen. 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 Reginaldo Cain MD Head Magnetic Resonance Angiography 06/14/16 0000 Signed Impressions: Service Date/Time: Tuesday, June 14, 2016 18:23 - CONCLUSION: No evidence of vessel truncation or aneurysm. Simone Graham MD Liver Ultrasound 06/13/16 0000 Signed Impressions: Service Date/Time: Monday, June 13, 2016 09:42 - CONCLUSION: 1. Small amount free fluid identified medial to the lower pole of the right kidney. 2. Slight increased hepatic echotexture suggesting some degree of fatty infiltration. 3. Please note the body and tail of the pancreas are obscured by overlying bowel gas. The head neck and uncinate process are sonographically intact. Mauro Leslie MD Head CT 06/12/16 1657 Signed Impressions: Service Date/Time: May 21:37 - CONCLUSION: Unremarkable study. Jose Martinez MD Renal Ultrasound 06/12/16 0000 Signed Impressions: Service Date/Time: May 23:51 - CONCLUSION: 1. Mild pelvocaliectasis on the right. No hydronephrosis involving either kidney. Simone Woody Jr., MD Chest CT 06/12/16 0000 Signed Impressions: Service Date/Time: May 21:39 - CONCLUSION: Right upper lobe parenchymal process may represent pneumonia, however follow up is suggested with repeat noncontrast chest CT in 2-4 weeksafter appropriate clinical therapy. Jose Martinez MD Objective Remarks GENERAL: Elderly woman unresponsive, acutely desaturating on 100% nonrebreather SKIN: Warm and dry. HEAD: Normocephalic. EYES: Pallor present, No scleral icterus. No injection or drainage. NECK: Supple, trachea midline. CARDIOVASCULAR: Tachycardic rate and rhythm without murmurs, gallops, or rubs. RESPIRATORY: Breath sounds equally diminished bilaterally. Occasional rhonchi, very shallow breathing GASTROINTESTINAL: Abdomen soft, non-tender, nondistended. MUSCULOSKELETAL: No cyanosis, or edema. EXTREMITIES: No clubbing cyanosis or edema NEURO: On Limited exam. Eyes are open, but patient is unresponsive, no response to sternal rub. A/P Assessment and Plan ASSESSMENT: Acute hypoxemic respiratory failure Probable aspiration/HCAP with R volume loss Encephalopathy SIRS/sepsis UTI Staph aureus pneumonia Acute kidney injury Rhabdo Hypernatremia Hypokalemia Anemia Lactic acidemia Leukocytosis- resolved Elevated LFT PLAN: Neuro: Emergently intubated today 06/26/16. Placed on propofol for sedation and ventilator synchrony CT brain: No acute findings. UDS+ +Benzos MRA brain 06/14- Unremarkable. s/p LP showed clear CSF and 15 WBC. EEG: Bihemispheric slowing, small sharp waves b/l Neuro is following- Dr. Boggs, On Keppra 500mg Q12 Pulm: Emergently intubated and placed on mechanical ventilation for acute hypoxemic respiratory failure on 06/26/16 Extubated 06/25, progressive hypoxia, on NRB prior to intubation. CXR RLL infiltrate with some volume loss Broad-spectrum antibiotics to cover for aspiration (Zosyn). Check sputum Bronchodilators, ICU vent bundle. CV: Monitor HR and BP keep MAP>65mmHg. Initiated diuresis with Lasix on 06/24 to mobilize fluid. Hold due to Hypotension post Intubation Normal saline 500 mL fluid bolus given : Monitor renal function, I/O's, avoid nephrotoxins. Electrolytes replacement per protocol. Renal US: No hydronephrosis. Renal is following- Dr. Corral GI/liver: On Pepcid 20meq IV qhs, resume tube feeds with Glucerna in 24 hours Monitor LFT's ( trending down), US liver: Fatty liver. Elevated urinary copper - GI is following. CT abdomen/pelvis 06/17- findings suggestive of adynamic ileus. No mechanical obstruction. On Reglan 5mg Iv q8 PRN, Miralax, Lactulose ID: Had been off all antibiotics. Place on IV Zosyn due Acute respiratory decompensation and intubation, probable aspiration (Initial Abx switched from Zyvox,Zosyn to Rocephin on 06/19, had been off all ABX ) Pertinent cultures: 06/12 Urine cx: E.coli 06/12 BC: No growth 06/12 CSG: NGTD 06/15 urine: E coli, sputum: MSSA 06/26: Blood sputum and urine cultures sent pending Heme: Monitor CBC, coags, Hep plt ab negative. Thrombocytopenia likely 2nd sepsis Endo: SSI for glycemic control, TSH level: 2.5 GI Prophylaxis with Pepcid DVT prophylaxis with SCD, not on chemical DVT prophylaxis 2nd to thrombocytopenia Palliative care following to assist with deciding goals of therapy. Patient's has been wishes to continue full CODE STATUS at this time. CCT 45 excluding procedures Ivana Hair MD June 26, 2016 13:37
[2016-06-26 13:41] LABS: BLOOD GAS BASE EXCESS 0.9 mmol/L (-2-2); BLOOD GAS CARBOXYHEMOGLOBIN 1.1 % (0-4); BLOOD GAS HCO3 25 mmol/L (22-26); BLOOD GAS O2 HGB SATURATION 96 % (90-100); BLOOD GAS OXYGEN CONTENT 11.6 Vol % (12.0-20.0); BLOOD GAS PCO2 37 mmHg (38-42); BLOOD GAS PO2 109 mmHg (61-120); BLOOD GAS TOTAL HGB 8.4 G/DL (12.0-16.0); CRITICAL VALUE NO; DRAW SITE LT RADIAL; FIO2 80 %; NUMBER OF ARTERIAL PUNCTURES 1; OXYGEN DEVICE VENTILATOR; STAT NO; TEMP CORR TO 98.6; ULNAR PULSE PRESENT; VENT SETTINGS PRVC/AC
--- NOTE | 2016-06-26 14:01 | RADRPT ---
EXAM DATE/TIME: 06/26/2016 13:07 [facility] COMPARISON: CHEST SINGLE AP, June 18, 2016, 2:40. INDICATIONS : Endotracheal tube placement. MEDICAL HISTORY : Cerebrovascular disease. SURGICAL HISTORY : Hysterectomy. ENCOUNTER: Initial ACUITY: 1 day PAIN SCORE: Non-responsive. LOCATION: Bilateral upper chest FINDINGS: Endotracheal tube tip is approximately 4 cm above the caren. There is a nasogastric tube coiled in t he stomach. Left subclavian central venous catheter again noted, tip in the superior vena cava. Small moderate effusion with mild right base consolidation noted, modestly worse in the interim. Left lung remains clear. CONCLUSION: Worsening consolidation and effusion at the right lung base. Appropriate position of the lines and tu bes as above. Reginaldo Zavala MD on June 26, 2016 at 13:57 Board Certified Radiologist. This report was verified electronically.
[2016-06-26 14:05] LABS: BASOPHIL % 0.2 % (0.0-2.0); EOSINOPHIL % 0.1 % (0.0-4.0); HEMATOCRIT 25.2 % (35.0-46.0); LYMPH % 7.4 % (9.0-44.0); LYMPHOCYTE # 0.9 TH/MM3 (1.0-4.8); MEAN CELL VOLUME 78.3 FL (80.0-100.0); MEAN CORPUSCULAR HEMOGLOBIN 25.7 PG (27.0-34.0); MEAN CORPUSCULAR HGB CONC 32.9 % (32.0-36.0); MONO % 5.9 % (0.0-8.0); NEUT % 86.4 % (16.0-70.0); PLATELET COUNT 302 TH/MM3 (150-450); RED BLOOD COUNT 3.23 MIL/MM3 (4.00-5.30); RED CELL DISTRIBUTION WIDTH 15.9 % (11.6-17.2); WHITE BLOOD COUNT 11.6 TH/MM3 (4.0-11.0)
[2016-06-26 14:07] LABS: HEMO FLAGS AUTO DIFF
[2016-06-26 14:30] LABS: BANDS 3 % (0-6); CORRECTED NUCLEATED RBC 3 /100 WBC (0-0); METAMYELOCYTES 1 % (0-1); MYELOCYTES 1 % (0-0); NEUTROPHIL # MANUAL DIFF 10.4 TH/MM3 (1.8-7.7); PLATELET ESTIMATE SMEAR NORMAL (NORMAL); PLATELET MORPHOLOGY ENLARGED (NORMAL); POLYS (SEG NEUTROPHILS) 85 % (16-70); WBC DIFF SAMPLE 100
[2016-06-26 14:31] LABS: SCAN/DIFF FINAL DIFF MANUAL
[2016-06-26 14:33] LABS: ALT (GPT) 112 U/L (10-53); ANION GAP 7 MEQ/L (5-15); AST (GOT) 45 U/L (15-37); BICARBONATE 29.3 MEQ/L (21.0-32.0); BLOOD UREA NITROGEN 11 MG/DL (7-18); CHLORIDE 106 MEQ/L (98-107); GLOMERULAR FILTRATION RATE 171 ML/MIN (>89); MAGNESIUM 2.1 MG/DL (1.5-2.5); POTASSIUM 3.8 MEQ/L (3.5-5.1); SODIUM (NA) 142 MEQ/L (136-145)
[2016-06-26 14:35] LABS: ALKALINE PHOSPHATASE 134 U/L (45-117); TOTAL BILIRUBIN ADULT 0.2 MG/DL (0.2-1.0)
[2016-06-26] MEDS ORDERED: PIPERACIL-TAZO 4.5 GM PREMIX 100 ML IV SCH (15:00)
--- NOTE | 2016-06-26 15:10 | RADRPT ---
EXAM DATE/TIME: 06/26/2016 13:08 [place] Corrected on: June 27, 2016; Added Indications, Medical History, Surgical History, Encounter, Acuity, Pain Score & location. [facility] COMPARISON: CHEST SINGLE AP, June 26, 2016, 13:07. INDICATIONS : Evaluate for Ileus MEDICAL HISTORY : Cerebrovascular disease. SURGICAL HISTORY : Hysterectomy ENCOUNTER: Initial ACUITY: 1 day PAIN SCORE: Non-responsive. LOCATION: Abdomen FINDINGS: There is a nasogastric tube within the stomach. The bowel gas pattern is within normal limits. The vi sualized bony structures demonstrate degenerative changes in the spine but are otherwise intact. No a bnormal calcifications are identified. CONCLUSION: 1. Nasogastric tube in good position. Benign-appearing bowel gas pattern. Jd Underwood MD on June 26, 2016 at 15:06 t Board Certified Radiologist. This report was verified electronically.
[2016-06-26] MEDS: RESP: ALBUTEROL 2.5 MG/IPRATROPIUM 0.5 MG NEB (SCH) NEB ×2 (16:24→20:24)
--- NOTE | 2016-06-26 17:41 | HHI.IDPN ---
Subjective Subjective Remarks reintubated this early pm after few hrs of worsening tachycardia and increasing work of breathing Afebrile WBC went up Antibiotics none Past Medical History Reviewed Allergies: Coded Allergies: DO NOT USE (Verified Allergy, Mild, Hallucinations, 06/12/16) Objective . Vital Signs Date Time Temp Pulse Resp B/P Pulse Ox O2 Delivery O2 Flow Rate FiO2 06/26/16 17:00 99.0 119 16 113/80 100 06/26/16 16:24 100 60 06/26/16 16:00 113 06/26/16 16:00 70 06/26/16 16:00 99.1 113 16 106/72 100 06/26/16 15:00 99.1 113 19 104/65 100 06/26/16 14:00 98.8 110 16 107/73 100 06/26/16 14:00 110 06/26/16 13:14 99 80 06/26/16 13:10 120 16 153/80 99 06/26/16 13:00 113 20 92/38 99 06/26/16 13:00 100 06/26/16 12:00 126 06/26/16 12:00 100 Venturi Mask 50 06/26/16 12:00 99.1 133 26 147/104 100 06/26/16 11:00 99.0 105 29 132/86 100 06/26/16 10:00 125 06/26/16 10:00 98.8 125 27 127/75 100 06/26/16 09:00 98.1 119 28 137/82 100 06/26/16 08:00 100 Partial Non-Rebreather 13.00 06/26/16 08:00 98.2 112 27 128/82 99 06/26/16 08:00 112 06/26/16 07:44 99 Non-Rebreather 100 06/26/16 06:00 118 06/26/16 04:00 134 06/26/16 04:00 97.8 134 29 191/89 95 06/26/16 04:00 95 Non-Rebreather 15.00 06/26/16 02:00 115 06/26/16 00:00 97.9 130 26 176/89 97 06/26/16 00:00 100 Nasal Cannula 4.00 06/26/16 00:00 130 06/25/16 22:00 118 06/25/16 20:00 98.7 101 20 131/76 100 06/25/16 20:00 100 Nasal Cannula 4.00 06/25/16 20:00 101 06/25/16 18:00 112 06/25/16 06/25/16 06/26/16 15:00 23:00 07:00 Intake Total 101 ml 204 ml Output Total 1500 ml 1750 ml 700 ml Balance -1399 ml -1546 ml -700 ml Intake IV Total 101 ml 204 ml Output Urine Total 1500 ml 1550 ml 550 ml Stool Total 200 ml 150 ml . Laboratory Tests Test 06/26/16 13:45 White Blood Count 11.6 TH/MM3 Red Blood Count 3.23 MIL/MM3 Hemoglobin 8.3 GM/DL Hematocrit 25.2 % Mean Corpuscular Volume 78.3 FL Mean Corpuscular Hemoglobin 25.7 PG Mean Corpuscular Hemoglobin 32.9 % Concent Red Cell Distribution Width 15.9 % Platelet Count 302 TH/MM3 Mean Platelet Volume 9.3 FL Neutrophils (%) (Auto) 86.4 % Lymphocytes (%) (Auto) 7.4 % Monocytes (%) (Auto) 5.9 % Eosinophils (%) (Auto) 0.1 % Basophils (%) (Auto) 0.2 % Neutrophils # (Auto) 10.0 TH/MM3 Lymphocytes # (Auto) 0.9 TH/MM3 Monocytes # (Auto) 0.7 TH/MM3 Eosinophils # (Auto) 0.0 TH/MM3 Basophils # (Auto) 0.0 TH/MM3 CBC Comment AUTO DIFF Differential Total Cells 100 Counted Neutrophils % (Manual) 85 % Band Neutrophils % 3 % Lymphocytes % 8 % Monocytes % 2 % Neutrophils # (Manual) 10.4 TH/MM3 Metamyelocytes 1 % Myelocytes 1 % Nucleated Red Blood Cells 3 /100 WBC Differential Comment FINAL DIFF MANUAL Platelet Estimate NORMAL Platelet Morphology Comment ENLARGED Laboratory Tests Test 06/26/16 06/26/16 04:02 13:45 Total Bilirubin 0.3 MG/DL 0.2 MG/DL Direct Bilirubin 0.1 MG/DL Indirect Bilirubin 0.2 MG/DL Aspartate Amino Transf 52 U/L 45 U/L (AST/SGOT) Alanine Aminotransferase 129 U/L 112 U/L (ALT/SGPT) Alkaline Phosphatase 150 U/L 134 U/L Total Protein 7.5 GM/DL 6.9 GM/DL Albumin 2.2 GM/DL 2.0 GM/DL Sodium Level 142 MEQ/L Potassium Level 3.8 MEQ/L Chloride Level 106 MEQ/L Carbon Dioxide Level 29.3 MEQ/L Anion Gap 7 MEQ/L Blood Urea Nitrogen 11 MG/DL Creatinine 0.46 MG/DL Estimat Glomerular Filtration 171 ML/MIN Rate Random Glucose 96 MG/DL Calcium Level 8.5 MG/DL Magnesium Level 2.1 MG/DL Microbiology Date/Time Procedure Status Source Growth 06/26/16 13:45 Urine Culture Received Urine Catheterized Urine Pending 06/26/16 15:35 Aerobic Blood Culture Received Blood Peripheral Pending 06/26/16 15:35 Anaerobic Blood Culture Received Blood Peripheral Pending 06/26/16 15:42 Aerobic Blood Culture Received Blood Peripheral Pending 06/26/16 15:42 Anaerobic Blood Culture Received Blood Peripheral Pending Imaging Last Impressions Chest X-Ray 06/26/16 0000 Signed Impressions: Service Date/Time: June 13:07 - CONCLUSION: Worsening consolidation and effusion at the right lung base. Appropriate position of the lines and tubes as above. Reginaldo Zavala MD Abdomen X-Ray 06/26/16 0000 Signed Impressions: Service Date/Time: June 13:08 - CONCLUSION: 1. Nasogastric tube in good position. Benign-appearing bowel gas pattern. Jd Underwood MD Abdomen/Pelvis CT 06/17/16 0000 Signed Impressions: Service Date/Time: Friday, June 17, 2016 04:12 - CONCLUSION: 1. New bibasilar atelectasis. 2. There is some mild dilatation of the small bowel. There is a mild to moderate distention of the colon down to the rectum suggestive of a diffuse adynamic ileus. No definite mechanical obstruction is seen. 3. Otherwise, no other significant changes compared to the prior study. Andi Luna MD Brain MRI 06/15/16 0000 Signed Impressions: Service Date/Time: Wednesday, June 15, 2016 09:10 - CONCLUSION: No acute abnormality seen. 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 Reginaldo Cain MD Head Magnetic Resonance Angiography 06/14/16 0000 Signed Impressions: Service Date/Time: Tuesday, June 14, 2016 18:23 - CONCLUSION: No evidence of vessel truncation or aneurysm. Simone Graham MD Liver Ultrasound 06/13/16 0000 Signed Impressions: Service Date/Time: Monday, June 13, 2016 09:42 - CONCLUSION: 1. Small amount free fluid identified medial to the lower pole of the right kidney. 2. Slight increased hepatic echotexture suggesting some degree of fatty infiltration. 3. Please note the body and tail of the pancreas are obscured by overlying bowel gas. The head neck and uncinate process are sonographically intact. Mauro Leslie MD Head CT 06/12/[id number] Signed Impressions: Service Date/Time: May 21:37 - CONCLUSION: Unremarkable study. Jose Martinez MD Renal Ultrasound 06/12/16 Signed Impressions: Service Date/Time: May 23:51 - CONCLUSION: 1. Mild pelvocaliectasis on the right. No hydronephrosis involving either kidney. Simone Woody Jr., MD Chest CT 06/12/16 Signed Impressions: Service Date/Time: May 21:39 - CONCLUSION: Right upper lobe parenchymal process may represent pneumonia, however follow up is suggested with repeat noncontrast chest CT in 2-4 weeksafter appropriate clinical therapy. Jose Martinez MD Physical Exam GENERAL: on vent, sedated, paralyzed SKIN: No jaundice, rashes, or lesions. Cool and dry HEAD: Atraumatic. Normocephalic. EYES: Pupils equal and round and reactive. No scleral icterus. No injection or drainage. ENT: Nose without bleeding or purulent drainage. NCARDIOVASCULAR: Regular rate and rhythm without murmurs, gallops, or rubs. No JVD. Peripheral pulses symmetric. RESPIRATORY/CHEST: Bilateral diffuse coarse rhonchi GASTROINTESTINAL: Abdomen soft, no reaction to palpation, minimally distended. No guarding. Bowel sounds present. Incontinent of liquid brown stool GENITOURINARY: Cortes catheter in place with clear yellow urine MUSCULOSKELETAL: Extremities without clubbing, cyanosis, no significant edema. No mottling or clubbing. NEUROLOGICAL: unresponsive post sedation for intubation PSYCHIATRIC: unable to assess LINE no evidence of infection : Cortes in place urine looks clear Assessment & Plan Remarks Sepsis (fever, hypoxi, leukocytosis, lactic acidosis, multi organ function) - ? source not clear, has E coli in UC but her UA is unremarkable - CT with RUL infiltrate, ?PNA - growing Staph aureus, MSSA Lymphocytic pleocytosis in CSF - C/S negative - VRDF negative, RPR neg - all clx are negative ARF/CKD, creatinine now normal Respiratory failure, new - re-intubated ? mucus plugs Leukocytosis, new Diarrhea, no e/o C.diff UTI, E.coli Persistent lactic acidosis PLAN restart abx (zosyn, vanco) fu blood clx dw Dr Reginaldo Ortiz,Briseida Savage MD June 26, 2016 17:40
[2016-06-26] MEDS ORDERED: Vancomycin Consult Pharmacy 1 EA OTHER SCH (17:45)
[2016-06-26] MEDS: VANCOMYCIN INJ 1,700 MG in SODIUM CHLORID 0.9% 500 ML INJ 500 ML IV SCH (20:11)
[2016-06-26] MEDS: FAMOTIDINE 20 MG/2 ML VIAL IV PUSH SCH (21:28)
[2016-06-26] MEDS: PIPERACIL-TAZO 4.5 GM PREMIX 100 ML IV SCH (21:28)
[2016-06-26] MEDS: PROPOFOL 1000 MG/100 ML INJ 100 ML IV SCH (22:43)
[2016-06-27] VITALS (44 sets, daily range): BP systolic 83–176; BP diastolic 54–93; PULSE 87–112; RESP 16–44; TEMP 97.9–99.6; O2SAT 92–100
[2016-06-27] MEDS: RESP: ALBUTEROL 2.5 MG/IPRATROPIUM 0.5 MG NEB (SCH) NEB ×4 (03:12→20:21)
[2016-06-27] MEDS: CHLORHEXIDINE GLUCONATE 2 % 1 PACK (2 CLOTHS) TOP SCH (03:36)
[2016-06-27] MEDS: PIPERACIL-TAZO 4.5 GM PREMIX 100 ML IV SCH ×4 (03:39→20:14)
[2016-06-27] MEDS: PROPOFOL 1000 MG/100 ML INJ 100 ML IV SCH ×3 (08:00→23:24)
[2016-06-27] MEDS: CHLORHEXIDINE 0.12% (ORAL KIT) 15 ML CUP MT SCH ×3 (08:00→19:36)
[2016-06-27] MEDS: VANCOMYCIN INJ 1,700 MG in SODIUM CHLORID 0.9% 500 ML INJ 500 ML IV SCH ×2 (08:00→19:36)
[2016-06-27] MEDS: SODIUM CHLORIDE 0.9% FLUSH 10 ML FLUSH IV FLUSH SCH ×2 (08:01→20:14)
[2016-06-27] MEDS: LACTULOSE SYRUP 20 GM/30 ML CUP PO SCH ×2 (08:01→20:14)
[2016-06-27] MEDS: POLYETHYLENE GLYCOL 17 GM PKG PO SCH (08:01)
[2016-06-27] MEDS: POTASSIUM CHLORIDE 25 MEQ EFFERVESCENT TAB NG SCH ×2 (09:00→20:14)
[2016-06-27] MEDS: PREGABALIN 75 MG CAP PO SCH ×2 (09:00→20:13)
[2016-06-27] MEDS: BACLOFEN 10 MG TAB PO SCH ×3 (09:00→17:34)
[2016-06-27] MEDS: levETIRAcetam INJ 500 MG in SODIUM CHLORIDE 0.9% INJ 100 ML IV SCH ×2 (09:15→20:14)
[2016-06-27] MEDS ORDERED: ROCURONIUM INJ 50 MG/5 ML VIAL IV ONE (10:00)
[2016-06-27 10:22] LABS: AUTOMATED NEUTROPHIL # 7.2 TH/MM3 (1.8-7.7); BASOPHIL % 0.2 % (0.0-2.0); EOSINOPHIL % 0.2 % (0.0-4.0); HEMATOCRIT 21.6 % (35.0-46.0); HEMO FLAGS DIFF FINAL; LYMPH % 11.9 % (9.0-44.0); LYMPHOCYTE # 1.1 TH/MM3 (1.0-4.8); MEAN CELL VOLUME 79.2 FL (80.0-100.0); MEAN CORPUSCULAR HEMOGLOBIN 26.6 PG (27.0-34.0); MEAN CORPUSCULAR HGB CONC 33.6 % (32.0-36.0); MONO % 7.5 % (0.0-8.0); NEUT % 80.2 % (16.0-70.0); PLATELET COUNT 301 TH/MM3 (150-450); RED BLOOD COUNT 2.72 MIL/MM3 (4.00-5.30)
[2016-06-27 10:36] LABS: BICARBONATE 26.8 MEQ/L (21.0-32.0); MAGNESIUM 2.1 MG/DL (1.5-2.5); POTASSIUM 3.4 MEQ/L (3.5-5.1)
--- NOTE | 2016-06-27 10:42 | HHI.CCPN ---
Subjective Remarks/Hospital Course 56-year-old female brought in by EMS emergently as altered mental status, hypoxia and temperature 104. Patient has a history of CVA many years ago. Per caregiver she didn't feel well since yesterday and wasn't taking any of medications including baclofen. Patient was unable to communicate due to her altered mental status. As per EMS not much history was available from the family but she has history of CVA as baseline but communicates. In the emergency department patient's oxygen saturation was low 70s upon EMS arrival. They had her on oxygen via nonrebreather and sats of 93%. GCS was 6 and she was intubated by ER attending for an airway protection. 06/13 Patient is sedated with Versed and on Bicarb drip. Renal function is improving with Cr: 2.12 from 3.19 UO: 1350ml since yesterday. Afebrile. 06/14 Patient remains sedated and intubated. Afebrile. Renal function continue to improve with Cr: 1.18 today from 1.53. 06/15 No acute events overnight. Off sedation remains intubated. Patient tolerated CPAP all day yesterday. MRA brain last night is unremarkable. T:99.9 06/16 Patient remains intubated off sedation. Afebrile. Tolerated CPAP all day yesterday remains encephalopathic. 06/17 No acute events overnight. Patient is able to open her eyes but does not follow commands. T: 100.1 last night. 06/18: Remains encephalopathic, orally intubated on mechanical ventilation. 06/19: Remains encephalopathic, orally intubated on mechanical ventilation. Daily C Pap trials ongoing. 06/20: Remains encephalopathic, orally intubated on mechanical ventilation. Daily C Pap trials. Tube feeds resumed. 06/21: More awake however not following commands. Remains orally intubated on mechanical ventilation. Tolerating tube feeds. Daily C Pap trials ongoing. 06/22: Encephalopathic though more awake, arousable. Not following commands. Remains orally intubated on mechanical ventilation. Tolerating tube feeds. Daily C Pap trials. 06/23: Awake, not following commands. Remains orally intubated on mechanical ventilation. Failing C Pap trials. Tolerating tube feeds. 06/24: Opening eyes, blinks on command. Remains orally intubated on mechanical ventilation. Tolerating tube feeds. Gets tachypneic with low volumes on dropping pressure-support at C Pap trials. We'll initiate diuresis as patient isn't significantly positive fluid balance since admission due to fluids administered for sepsis which now appears to be under control. 06/25: Awake, appears to focus. Extubated today following C Pap trial. Continue diuresis. 06/26: [facility] reconsult note. Patient was extubated yesterday 06/25 and apparently was doing well initially. Overnight was placed on a 100% percent nonrebreather. I was called to the bedside emergently by Denny PATINO, today around 12.30 pm, patient was more unresponsive and hypoxemic on 100% nonrebreather. On my evaluation patient's eyes were open but nonresponsive, shallow breathing. Oxygen saturation 80% on 100 percent nonrebreather. Emergently intubated and placed on mechanical ventilation. Moderate amount of white secretions at glottic opening. CXR shows RLL infiltrate with volume loss? aspiration. Sputum cx. Discuss with ID Dr. Ortiz, will place on broad-spectrum antibiotics with Zosyn 06/27: Tmax 99.6 The patient was emergently reintubated yesterday, overnight no increasing ventilatory requirements were noted. The patient underwent a bronchoscopy with BAL this a.m., cultures were sent. Plan for PEG placement today. Objective Vital Signs Date Time Temp Pulse Resp B/P Pulse Ox O2 Delivery O2 Flow Rate FiO2 06/27/16 09:00 107 16 135/72 100 06/27/16 08:24 40 06/27/16 08:00 97.9 06/27/16 00:15 Mechanical Ventilator 06/26/16 08:00 13.00 Intake and Output 06/26/16 06/26/16 06/27/16 08:00 16:00 00:00 Intake Total 608 ml 396 ml Output Total 700 ml 725 ml 200 ml Balance -700 ml -117 ml 196 ml Result Diagram: 06/27/16 0950 06/26/16 1345 Other Results Laboratory Tests Test 06/26/16 13:33 Blood Gas Puncture Site LT RADIAL Blood Gas Patient Temperature 98.6 Blood Gas HCO3 25 mmol/L (22-26) Blood Gas Base Excess 0.9 mmol/L (-2-2) Blood Gas Oxygen Saturation 96 % (90-100) Arterial Blood pH 7.44 (7.380-7.420) Arterial Blood Partial 37 mmHg (38-42) Pressure CO2 Arterial Blood Partial 109 mmHg Pressure O2 (61-120) Arterial Blood Oxygen Content 11.6 Vol % (12.0-20.0) Arterial Blood 1.1 % (0-4) Carboxyhemoglobin Arterial Blood Methemoglobin 1.0 % (0-2) Blood Gas Hemoglobin 8.4 G/DL (12.0-16.0) Oxygen Delivery Device VENTILATOR Blood Gas Ventilator Setting PRVC/AC Blood Gas Inspired Oxygen 80 % Imaging Last Impressions Abdomen/Pelvis CT 06/17/16 0000 Signed Impressions: Service Date/Time: Friday, June 17, 2016 04:12 - CONCLUSION: 1. New bibasilar atelectasis. 2. There is some mild dilatation of the small bowel. There is a mild to moderate distention of the colon down to the rectum suggestive of a diffuse adynamic ileus. No definite mechanical obstruction is seen. 3. Otherwise, no other significant changes compared to the prior study. Andi Luna MD Chest X-Ray 06/16/16 0000 Signed Impressions: Service Date/Time: Thursday, June 16, 2016 04:51 - CONCLUSION: Right basilar density likely atelectasis.. Chadd Kahn MD Abdomen X-Ray 06/16/16 0000 Signed Impressions: Service Date/Time: Thursday, June 16, 2016 17:15 - CONCLUSION: 1. Nonspecific bowel gas pattern which may represent a mild ileus or gastroenteritis. Rico Pedraza MD Brain MRI 06/15/16 0000 Signed Impressions: Service Date/Time: Wednesday, June 15, 2016 09:10 - CONCLUSION: No acute abnormality seen. 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 Reginaldo Cain MD Head Magnetic Resonance Angiography 06/14/16 0000 Signed Impressions: Service Date/Time: Tuesday, June 14, 2016 18:23 - CONCLUSION: No evidence of vessel truncation or aneurysm. Simone Graham MD Liver Ultrasound 06/13/16 0000 Signed Impressions: Service Date/Time: Monday, June 13, 2016 09:42 - CONCLUSION: 1. Small amount free fluid identified medial to the lower pole of the right kidney. 2. Slight increased hepatic echotexture suggesting some degree of fatty infiltration. 3. Please note the body and tail of the pancreas are obscured by overlying bowel gas. The head neck and uncinate process are sonographically intact. Mauro Leslie MD Head CT 06/12/16 1657 Signed Impressions: Service Date/Time: May 21:37 - CONCLUSION: Unremarkable study. Jose Martinez MD Renal Ultrasound 06/12/16 0000 Signed Impressions: Service Date/Time: May 23:51 - CONCLUSION: 1. Mild pelvocaliectasis on the right. No hydronephrosis involving either kidney. Simone Woody Jr., MD Chest CT 06/12/16 0000 Signed Impressions: Service Date/Time: May 21:39 - CONCLUSION: Right upper lobe parenchymal process may represent pneumonia, however follow up is suggested with repeat noncontrast chest CT in 2-4 weeksafter appropriate clinical therapy. Jose Martinez MD Objective Remarks BP 107/70 [id number] O 2 Saturation 100% GENERAL: Elderly woman unresponsive, acutely desaturating on 100% nonrebreather SKIN: Warm and dry. HEAD: Normocephalic. EYES: Pallor present, No scleral icterus. No injection or drainage. NECK: Supple, trachea midline. Orotracheally intubated CARDIOVASCULAR: Tachycardic rate and rhythm without murmurs, gallops, or rubs. RESPIRATORY: Mechanical ventilation Breath sounds diminished B/L bases. GASTROINTESTINAL: Abdomen soft, non-tender, nondistended. MUSCULOSKELETAL: No cyanosis, or edema. EXTREMITIES: No clubbing cyanosis or edema NEURO: Eyes are open, but patient is unresponsive, no response to sternal rub. A/P Assessment and Plan ASSESSMENT: Acute hypoxemic respiratory failure Probable aspiration/HCAP with R volume loss Encephalopathy SIRS/sepsis UTI Staph aureus pneumonia Acute kidney injury Rhabdo Hypernatremia Hypokalemia Anemia Lactic acidemia Leukocytosis- resolved Elevated LFT PLAN: Neuro: Emergently intubated today 06/26/16. Placed on propofol for sedation for ventilator synchrony CT brain: No acute findings. UDS+ +Benzos MRA brain 06/14- Unremarkable. s/p LP showed clear CSF and 15 WBC. EEG: Bihemispheric slowing, small sharp waves b/l Neuro is following- Dr. Boggs, On Keppra 500mg Q12 Pulm: Emergently intubated and placed on mechanical ventilation for acute hypoxemic respiratory failure on 06/26/16 Extubated 06/25, progressive hypoxia, on NRB prior to intubation. CXR RLL infiltrate with some volume loss Broad-spectrum antibiotics to cover for aspiration (Zosyn). Check sputum Bronchodilators, ICU vent bundle. Thick tenacious secretions noted on bronchoscopy, Mucomyst added to medication regimen 3 days 06/27-Bronchoscopy with BAL cultures sent CV: Monitor HR and BP keep MAP>65mmHg. Initiated diuresis with Lasix on 06/24 to mobilize fluid. Hold due to Hypotension post Intubation Normal saline 500 mL fluid bolus given : Monitor renal function, I/O's, avoid nephrotoxins. Electrolytes replacement per protocol. Renal US: No hydronephrosis. Renal is following- Dr. Corral GI/liver: On Pepcid 20meq IV qhs, resume tube feeds with Glucerna in 24 hours Monitor LFT's ( trending down), US liver: Fatty liver. Elevated urinary copper - GI is following. CT abdomen/pelvis 06/17- findings suggestive of adynamic ileus. No mechanical obstruction. On Reglan 5mg Iv q8 PRN, Miralax, Lactulose ID: Had been off all antibiotics. 06/26 Placed on IV Zosyn, Vanc due Acute respiratory decompensation and intubation, probable aspiration (Initial Abx switched from Zyvox,Zosyn to Rocephin on 06/19, had been off all ABX ) Pertinent cultures: 06/12 Urine cx: E.coli 06/12 BC: No growth 06/12 CSG: NGTD 06/15 urine: E coli, sputum: MSSA 06/26: Blood sputum and urine cultures sent pending Heme: Thrombocytopenia-resolved Monitor CBC, coags Hep plt ab negative. Endo: SSI for glycemic control, TSH level: 2.5 GI Prophylaxis with Pepcid DVT prophylaxis with SCD, not on chemical DVT prophylaxis 2nd to thrombocytopenia Palliative care following to assist with deciding goals of therapy. Patient's has been wishes to continue full CODE STATUS at this time. This patient remains critically ill with one or more organ systems which are or may become a threat to life. I have spent in excess of 43 minutes discontinuously in the care and management of this patient. This time is exclusive of procedures, and includes, but is not limited to, evaluation of the patient, review of the medical record, discussions with family, consultants, nursing staff, or respiratory therapy, and documentation in the medical record. Physician Stacy Reeves MD June 27, 2016 10:42
[2016-06-27] MEDS ORDERED: PILL SPLITTER OTHER PRN (10:45)
--- NOTE | 2016-06-27 10:46 | PD.PROCEDR ---
Procedure Note Procedure Procedure: Fiberoptic Bronchoscopy Diagnosis: Acute hypoxic respiratory failure Indications: Same Consent: Obtained by family Anesthesia: see MAR Description of the Procedure: The patient was sedated and mechanically ventilated. The patient was placed on 100% FIO2 and a volume control mode of ventilation. The fiberoptic bronchoscopy was inserted via 8.0 ETT. The trachea, right and left mainstem bronchi, and sub-segmental bronchi were evaluated. The endobronchial anatomy was normal. Findings: Sedated tenacious secretions were noted in the right middle lower lobes. BAL samples: 2 were sent The patient tolerated the procedure well with no hemodynamic instability or hypoxia. There were no immediate complications noted. At the conclusion of the procedure, the patient was placed back on their pre-procedure ventilatory settings. There was minimal EBL. A chest x-ray has been ordered. I personally performed the procedure. Stacy Medellin MD June 27, 2016 10:46
[2016-06-27] MEDS: METOPROLOL TARTRATE 25 MG TAB PO SCH ×2 (10:59→20:15)
[2016-06-27] MEDS: POTASSIUM CHLOR 20 MEQ PREMIX 100 ML IV PRN ×2 (12:29→13:42)
--- NOTE | 2016-06-27 12:41 | RADRPT ---
EXAM DATE/TIME: 06/27/2016 11:11 [facility] COMPARISON: CT ABDOMEN & PELVIS W CONTRAST, June 17, 2016, 4:12. CHEST SINGLE AP, June 26, 2016, 13:07. INDICATIONS : Post bronchoscopy. MEDICAL HISTORY : cva SURGICAL HISTORY : None. ENCOUNTER: Initial ACUITY: 1 day PAIN SCORE: Non-responsive. LOCATION: Bilateral chest FINDINGS: Portable AP view of the chest demonstrates a normal-sized cardiac silhouette. ETT and NG tube remain present. Multiple lines overlie the patient. There is a persistent airspace opacity at the right lung base. No pneumothorax is identified. CONCLUSION: Persistent airspace opacity at the right lung base. No pneumothorax is visualized. Reginaldo Potts MD on June 27, 2016 at 12:38 Board Certified Radiologist. This report was verified electronically.
[2016-06-27] MEDS ORDERED: PROPOFOL 200 MG/20 ML AMP IV ONE (14:05)
--- NOTE | 2016-06-27 14:17 | GIPROC ---
[facility] [address] [facility]. [facility], [address] EGD WITH PEG PROCEDURE REPORT EXAM DATE: 06/27/2016 PATIENT NAME: Beatrice Velazquez MR#: [id number] BIRTHDATE: 1960 ATTENDING: Teodoro Davis MD ORDER #: [id number] STRIPPING CUTTER AND WINDER: Huy Jansen and Paresh Moya STATUS: inpatient INDICATIONS: The patient is a 56 yr old female here for an EGD with PEG due to dysphagia PROCEDURE PERFORMED: EGD with PEG placement MEDICATIONS: None and Per Anesthesia. TOPICAL ANESTHETIC: CONSENT: The patient understands the risks and benefits of the procedure and understands that these risks include, but are not limited to: sedation, allergic reaction, infection, perforation and/or bleeding. Alternative means of evaluation and treatment include, among others: physical exam, x-rays, and/or surgical intervention. The patient elects to proceed with this endoscopic procedure. medical equipment was checked for proper function. Hand hygiene and appropriate measures for infection prevention was taken. After the risks, benefits and alternatives of the procedure were thoroughly explained, Informed consent was verified, confirmed and timeout was successfully executed by the treatment team. The patient was anesthetized with topical anesthesia and the Pentax [id number] endoscope was introduced through the mouth and advanced to the second portion of the duodenum. The instrument was slowly withdrawn as the mucosa was fully examined. Mild gastritis was found in the antrum. The stomach was then inflated with air, and by a combination of transillumination and manual palpation, the site for the gastrostomy tube placement was selected and marked on the anterior abdominal wall. The skin of the anterior abdomen was surgically prepped and draped with sterile towels. Utilizing strict sterile technique, the selected site was then anesthetized with 1% xylocaine by injection into the skin and subcutaneous tissue. A 1 cm incision was made through the skin and subcutaneous tissue, and the needle/cannula assembly was then passed through the abdominal wall and through the anterior wall of the stomach, maintaining visualization with the endoscope. A snare device previously placed through the instrument channel was then opened and placed around the cannula, the needle was removed, and the insertion wire was passed through the cannula and into the stomach lumen. The snare was then loosened from the cannula, and repositioned to snare the insertion wire. The snare was then pulled up to the endoscope distal tip, and the scope was then withdrawn bringing with it the snare and insertion wire. The insertion wire was then released from the snare, and then loop-attached to the Bard 20 Fr gastrostomy tube. Using the "pull technique", the G-tube was then pulled into place by traction on the insertion wire at the abdominal wall end. The G-tube insertion site was then cleansed once again, and the external bolster was placed over the tube to secure it to the abdominal wall. A sterile dressing was then applied, and the procedure terminated. no abnormalities The gastroscope was then slowly withdrawn and removed. ADVERSE EVENT: There were no complications. IMPRESSIONS: 1. Mild gastritis was found in the antrum 2. No abnormalities RECOMMENDATIONS: PEG recomendations: 1- NPO for 6 hours except for meds 2- Flush PEG tube every 6 hours with water and after each PEG feeding 3- May resume regular diet in the morning 4- May use Ensure or Boost etc. for PEG tube feeding REPEAT EXAM: procedure as needed Teodoro Davis MD eSigned: Teodoro Davis MD 06/27/2016 2:17 PM cc: PATIENT NAME: Beatrice Velazquez MR#: [id number]
--- NOTE | 2016-06-27 14:49 | HHI.IDPN ---
Subjective Subjective Remarks remains reintubated bronched - mucus pluggs encounted PEG to be placed today Afebrile WBC went down Antibiotics nicasyn sonia Past Medical History Reviewed Allergies: Coded Allergies: DO NOT USE (Verified Allergy, Mild, Hallucinations, 06/12/16) Objective . Vital Signs Date Time Temp Pulse Resp B/P Pulse Ox O2 Delivery O2 Flow Rate FiO2 06/27/16 13:00 97.3 91 16 123/70 100 06/27/16 12:39 100 40 06/27/16 12:30 97.2 91 16 127/82 100 06/27/16 12:15 97.2 88 16 118/75 100 06/27/16 12:00 100 06/27/16 12:00 97.2 91 17 123/73 100 06/27/16 12:00 91 06/27/16 11:45 97.2 95 18 132/77 100 06/27/16 11:30 97.2 97 18 131/80 100 06/27/16 11:15 97.2 104 20 133/84 100 06/27/16 11:00 97.2 101 19 129/78 100 06/27/16 10:45 97.2 100 16 110/69 100 06/27/16 10:30 97.2 100 16 101/61 100 06/27/16 10:21 97.2 103 16 83/54 100 06/27/16 10:19 97.2 104 16 107/67 100 06/27/16 10:15 97.2 112 22 176/93 100 06/27/16 10:12 97.0 108 16 115/74 100 06/27/16 10:10 97.0 111 16 160/92 100 06/27/16 10:08 100 100 06/27/16 10:06 97.0 103 16 110/69 100 06/27/16 10:00 96.8 102 17 123/77 100 06/27/16 10:00 102 06/27/16 09:00 107 16 135/72 100 06/27/16 08:24 100 40 06/27/16 08:00 40 06/27/16 08:00 97.9 101 16 101/66 100 06/27/16 08:00 101 06/27/16 07:00 102 16 108/71 100 06/27/16 06:00 106 06/27/16 06:00 97.3 106 16 107/70 100 06/27/16 05:00 97.3 107 16 118/69 92 06/27/16 04:07 100 50 06/27/16 04:00 99.0 101 17 95/61 100 06/27/16 04:00 101 06/27/16 04:00 97.9 101 16 95/61 06/27/16 04:00 50 06/27/16 03:00 97.9 97 44 105/78 100 06/27/16 02:00 97.9 100 16 107/69 100 06/27/16 02:00 100 06/27/16 01:00 95.5 100 16 109/67 100 06/27/16 00:30 100 35 06/27/16 00:15 Mechanical Ventilator 50 06/27/16 00:00 99.6 107 16 112/75 100 06/27/16 00:00 94.6 107 16 112/75 100 06/27/16 00:00 107 06/27/16 00:00 50 06/27/16 00:00 94.6 107 16 112/75 100 06/26/16 23:15 Mechanical Ventilator 55 06/26/16 23:00 98.6 100 18 109/72 98 06/26/16 22:55 116 06/26/16 22:10 88 Mechanical Ventilator 60 06/26/16 22:01 99.0 110 30 132/85 86 06/26/16 22:00 108 06/26/16 22:00 99.0 108 32 78 06/26/16 21:00 99.1 113 18 116/73 96 06/26/16 20:36 100 50 06/26/16 20:00 114 06/26/16 20:00 99.1 114 17 116/79 100 06/26/16 20:00 100 Mechanical Ventilator 50 06/26/16 20:00 50 06/26/16 20:00 99.2 114 17 116/79 100 06/26/16 18:00 104 06/26/16 18:00 104 16 114/84 100 06/26/16 17:00 99.0 119 16 113/80 100 06/26/16 16:24 100 60 06/26/16 16:00 113 06/26/16 16:00 70 06/26/16 16:00 99.1 113 16 106/72 100 06/26/16 15:00 99.1 113 19 104/65 100 06/26/16 06/26/16 06/27/16 15:00 23:00 07:00 Intake Total 608 ml 396 ml 856 ml Output Total 725 ml 200 ml 250 ml Balance -117 ml 196 ml 606 ml Intake IV Total 608 ml 366 ml 826 ml Tube Feeding 0 ml Other 30 ml 30 ml Output Urine Total 725 ml 200 ml 250 ml # Bowel Movements 3 0 1 . Laboratory Tests Test 06/26/16 06/27/16 13:45 09:50 White Blood Count 11.6 TH/MM3 9.0 TH/MM3 Red Blood Count 3.23 MIL/MM3 2.72 MIL/MM3 Hemoglobin 8.3 GM/DL 7.2 GM/DL Hematocrit 25.2 % 21.6 % Mean Corpuscular Volume 78.3 FL 79.2 FL Mean Corpuscular Hemoglobin 25.7 PG 26.6 PG Mean Corpuscular Hemoglobin 32.9 % 33.6 % Concent Red Cell Distribution Width 15.9 % 16.0 % Platelet Count 302 TH/MM3 301 TH/MM3 Mean Platelet Volume 9.3 FL 9.1 FL Neutrophils (%) (Auto) 86.4 % 80.2 % Lymphocytes (%) (Auto) 7.4 % 11.9 % Monocytes (%) (Auto) 5.9 % 7.5 % Eosinophils (%) (Auto) 0.1 % 0.2 % Basophils (%) (Auto) 0.2 % 0.2 % Neutrophils # (Auto) 10.0 TH/MM3 7.2 TH/MM3 Lymphocytes # (Auto) 0.9 TH/MM3 1.1 TH/MM3 Monocytes # (Auto) 0.7 TH/MM3 0.7 TH/MM3 Eosinophils # (Auto) 0.0 TH/MM3 0.0 TH/MM3 Basophils # (Auto) 0.0 TH/MM3 0.0 TH/MM3 CBC Comment AUTO DIFF DIFF FINAL Differential Total Cells 100 Counted Neutrophils % (Manual) 85 % Band Neutrophils % 3 % Lymphocytes % 8 % Monocytes % 2 % Neutrophils # (Manual) 10.4 TH/MM3 Metamyelocytes 1 % Myelocytes 1 % Nucleated Red Blood Cells 3 /100 WBC Differential Comment FINAL DIFF MANUAL Platelet Estimate NORMAL Platelet Morphology Comment ENLARGED Laboratory Tests Test 06/26/16 06/26/1617 04:02 13:45 09:50 Total Bilirubin 0.3 MG/DL 0.2 MG/DL Direct Bilirubin 0.1 MG/DL Indirect Bilirubin 0.2 MG/DL Aspartate Amino Transf 52 U/L 45 U/L (AST/SGOT) Alanine Aminotransferase 129 U/L 112 U/L (ALT/SGPT) Alkaline Phosphatase 150 U/L 134 U/L Total Protein 7.5 GM/DL 6.9 GM/DL Albumin 2.2 GM/DL 2.0 GM/DL Sodium Level 142 MEQ/L 144 MEQ/L Potassium Level 3.8 MEQ/L 3.4 MEQ/L Chloride Level 106 MEQ/L 108 MEQ/L Carbon Dioxide Level 29.3 MEQ/L 26.8 MEQ/L Anion Gap 7 MEQ/L 9 MEQ/L Blood Urea Nitrogen 11 MG/DL 10 MG/DL Creatinine 0.46 MG/DL 0.42 MG/DL Estimat Glomerular Filtration 171 ML/MIN 190 ML/MIN Rate Random Glucose 96 MG/DL 93 MG/DL Calcium Level 8.5 MG/DL 8.2 MG/DL Magnesium Level 2.1 MG/DL 2.1 MG/DL Phosphorus Level 3.7 MG/DL Microbiology Date/Time Procedure Status Source Growth 06/26/16 13:45 Urine Culture - Preliminary Resulted Urine Catheterized Urine Pseudomonas Species 06/26/16 14:00 Gram Stain - Final Resulted Sputum Endotracheal 06/26/16 14:00 Sputum Culture - Preliminary Resulted Sputum Endotracheal NO GROWTH IN 24 HOURS. 06/26/16 15:35 Aerobic Blood Culture - Preliminary Resulted Blood Peripheral NO GROWTH IN 1 DAY 06/26/16 15:35 Anaerobic Blood Culture - Preliminary Resulted Blood Peripheral NO GROWTH IN 1 DAY 06/26/16 15:42 Aerobic Blood Culture - Preliminary Resulted Blood Peripheral NO GROWTH IN 1 DAY 06/26/16 15:42 Anaerobic Blood Culture - Preliminary Resulted Blood Peripheral NO GROWTH IN 1 DAY 06/27/16 10:25 Cancelled Mini Bronchoalveolar Lavage 06/27/16 10:25 Gram Stain Received Bronchial Washings Bronchial Pending 06/27/16 10:25 Bronchial Culture Received Bronchial Washings Bronchial Pending 06/27/16 10:25 Gram Stain Received Bronchial Washings Bronchial Pending 06/27/16 10:25 Bronchial Culture Received Bronchial Washings Bronchial Pending 06/27/16 10:25 Fungal Smear Received Bronchial Washings Bronchial Pending 06/27/16 10:25 Fungal Culture Received Bronchial Washings Bronchial Pending 06/27/16 10:25 Acid Fast Stain Received Bronchial Washings Bronchial Pending 06/27/16 10:25 Mycobacterial Culture Received Bronchial Washings Bronchial Pending 06/27/16 10:25 Fungal Smear Received Bronchial Washings Bronchial Pending 06/27/16 10:25 Fungal Culture Received Bronchial Washings Bronchial Pending 06/27/16 10:25 Acid Fast Stain Received Bronchial Washings Bronchial Pending 06/27/16 10:25 Mycobacterial Culture Received Bronchial Washings Bronchial Pending Imaging Last Impressions Chest X-Ray 06/27/16 0000 Signed Impressions: Service Date/Time: Monday, June 27, 2016 11:11 - CONCLUSION: Persistent airspace opacity at the right lung base. No pneumothorax is visualized. Reginaldo Potts MD Abdomen X-Ray 06/26/16 0000 Signed Impressions: Service Date/Time: June 13:08 - CONCLUSION: 1. Nasogastric tube in good position. Benign-appearing bowel gas pattern. Jd Underwood MD Abdomen/Pelvis CT 06/17/16 0000 Signed Impressions: Service Date/Time: Friday, June 17, 2016 04:12 - CONCLUSION: 1. New bibasilar atelectasis. 2. There is some mild dilatation of the small bowel. There is a mild to moderate distention of the colon down to the rectum suggestive of a diffuse adynamic ileus. No definite mechanical obstruction is seen. 3. Otherwise, no other significant changes compared to the prior study. Andi Luna MD Brain MRI 06/15/16 0000 Signed Impressions: Service Date/Time: Wednesday, June 15, 2016 09:10 - CONCLUSION: No acute abnormality seen. 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 Reginaldo Cain MD Head Magnetic Resonance Angiography 06/14/16 0000 Signed Impressions: Service Date/Time: Tuesday, June 14, 2016 18:23 - CONCLUSION: No evidence of vessel truncation or aneurysm. Simone Graham MD Liver Ultrasound 06/13/16 0000 Signed Impressions: Service Date/Time: Monday, June 13, 2016 09:42 - CONCLUSION: 1. Small amount free fluid identified medial to the lower pole of the right kidney. 2. Slight increased hepatic echotexture suggesting some degree of fatty infiltration. 3. Please note the body and tail of the pancreas are obscured by overlying bowel gas. The head neck and uncinate process are sonographically intact. Mauro Leslie MD Head CT 06/12/16 1657 Signed Impressions: Service Date/Time: May 21:37 - CONCLUSION: Unremarkable study. Jose Martinez MD Renal Ultrasound 06/12/16 0000 Signed Impressions: Service Date/Time: May 23:51 - CONCLUSION: 1. Mild pelvocaliectasis on the right. No hydronephrosis involving either kidney. Simone Woody Jr., MD Chest CT 06/12/16 0000 Signed Impressions: Service Date/Time: May 21:39 - CONCLUSION: Right upper lobe parenchymal process may represent pneumonia, however follow up is suggested with repeat noncontrast chest CT in 2-4 weeksafter appropriate clinical therapy. Jose Martinez MD Physical Exam GENERAL: on vent, sedated, paralyzed SKIN: No jaundice, rashes, or lesions. Cool and dry HEYES: Pupils equal and round and reactive. No scleral icterus. No injection or drainage. ENT: Nose without bleeding or purulent drainage. NCARDIOVASCULAR: Regular rate and rhythm without murmurs, gallops, or rubs. No JVD. Peripheral pulses symmetric. RESPIRATORY/CHEST: Bilateral diffuse coarse rhonchi GASTROINTESTINAL: Abdomen soft, no reaction to palpation, not distended. No guarding. Bowel sounds present. Incontinent of liquid brown stool GENITOURINARY: Cortes catheter in place with clear yellow urine MUSCULOSKELETAL: Extremities without clubbing, cyanosis, no significant edema. NEUROLOGICAL: unresponsive LINE no evidence of infection : Cortes in place urine looks clear Assessment & Plan Remarks Sepsis (fever, hypoxi, leukocytosis, lactic acidosis, multi organ function) - ? source not clear, has E coli in UC but her UA is unremarkable - CT with RUL infiltrate, ?PNA - growing Staph aureus, MSSA Lymphocytic pleocytosis in CSF - C/S negative - VRDF negative, RPR neg - all clx are negative ARF/CKD, creatinine now normal Respiratory failure, new - re-intubated ? mucus plugs Leukocytosis, new Diarrhea, no e/o C.diff UTI, E.coli Persistent lactic acidosis PLAN cont zosyn, vanco fu blood clx and bronch cl Plan to dc abx if remains afebrile, neg clx and no other signs of infx dw Dr Vignesh Ortiz,Briseida Savage MD June 27, 2016 14:49
[2016-06-27] MEDS: FAMOTIDINE 20 MG/2 ML VIAL IV PUSH SCH (20:14)
[2016-06-27] MEDS: RESP: ACETYLCYSTEINE 10% 30 ML NEB NEB SCH ×2 (20:21→20:24)
[2016-06-28] VITALS (20 sets, daily range): BP systolic 101–137; BP diastolic 62–79; PULSE 91–113; RESP 16; TEMP 97.9–99.5; O2SAT 100
[2016-06-28] MEDS: CHLORHEXIDINE GLUCONATE 2 % 1 PACK (2 CLOTHS) TOP SCH (02:18)
[2016-06-28] MEDS: PIPERACIL-TAZO 4.5 GM PREMIX 100 ML IV SCH ×4 (02:18→20:17)
[2016-06-28] MEDS: RESP: ALBUTEROL 2.5 MG/IPRATROPIUM 0.5 MG NEB (SCH) NEB ×4 (03:17→21:37)
[2016-06-28] MEDS: PROPOFOL 1000 MG/100 ML INJ 100 ML IV SCH (06:46)
[2016-06-28] MEDS ORDERED: PHARMACY ORDERED LAB ONE (07:45)
[2016-06-28] MEDS: CHLORHEXIDINE 0.12% (ORAL KIT) 15 ML CUP MT SCH ×2 (08:40→20:19)
[2016-06-28] MEDS: PREGABALIN 75 MG CAP PO SCH ×2 (08:42→20:18)
[2016-06-28] MEDS: POLYETHYLENE GLYCOL 17 GM PKG PO SCH (08:42)
[2016-06-28] MEDS: SODIUM CHLORIDE 0.9% FLUSH 10 ML FLUSH IV FLUSH SCH ×2 (08:42→20:19)
[2016-06-28] MEDS: RESP: ACETYLCYSTEINE 10% 30 ML NEB NEB SCH ×3 (08:42→21:46)
[2016-06-28] MEDS: levETIRAcetam INJ 500 MG in SODIUM CHLORIDE 0.9% INJ 100 ML IV SCH ×2 (08:42→20:17)
[2016-06-28] MEDS: METOPROLOL TARTRATE 25 MG TAB PO SCH ×2 (08:42→20:18)
[2016-06-28] MEDS: BACLOFEN 10 MG TAB PO SCH ×2 (08:43→18:52)
[2016-06-28] MEDS: LACTULOSE SYRUP 20 GM/30 ML CUP PO SCH ×2 (08:43→20:18)
[2016-06-28] MEDS: VANCOMYCIN INJ 1,700 MG in SODIUM CHLORID 0.9% 500 ML INJ 500 ML IV SCH (09:03)
--- NOTE | 2016-06-28 12:07 | HHI.CCPN ---
Subjective Remarks/Hospital Course 56-year-old female brought in by EMS emergently as altered mental status, hypoxia and temperature 104. Patient has a history of CVA many years ago. Per caregiver she didn't feel well since yesterday and wasn't taking any of medications including baclofen. Patient was unable to communicate due to her altered mental status. As per EMS not much history was available from the family but she has history of CVA as baseline but communicates. In the emergency department patient's oxygen saturation was low 70s upon EMS arrival. They had her on oxygen via nonrebreather and sats of 93%. GCS was 6 and she was intubated by ER attending for an airway protection. 06/13 Patient is sedated with Versed and on Bicarb drip. Renal function is improving with Cr: 2.12 from 3.19 UO: 1350ml since yesterday. Afebrile. 06/14 Patient remains sedated and intubated. Afebrile. Renal function continue to improve with Cr: 1.18 today from 1.53. 06/15 No acute events overnight. Off sedation remains intubated. Patient tolerated CPAP all day yesterday. MRA brain last night is unremarkable. T:99.9 06/16 Patient remains intubated off sedation. Afebrile. Tolerated CPAP all day yesterday remains encephalopathic. 06/17 No acute events overnight. Patient is able to open her eyes but does not follow commands. T: 100.1 last night. 06/18: Remains encephalopathic, orally intubated on mechanical ventilation. 06/19: Remains encephalopathic, orally intubated on mechanical ventilation. Daily C Pap trials ongoing. 06/20: Remains encephalopathic, orally intubated on mechanical ventilation. Daily C Pap trials. Tube feeds resumed. 06/21: More awake however not following commands. Remains orally intubated on mechanical ventilation. Tolerating tube feeds. Daily C Pap trials ongoing. 06/22: Encephalopathic though more awake, arousable. Not following commands. Remains orally intubated on mechanical ventilation. Tolerating tube feeds. Daily C Pap trials. 06/23: Awake, not following commands. Remains orally intubated on mechanical ventilation. Failing C Pap trials. Tolerating tube feeds. 06/24: Opening eyes, blinks on command. Remains orally intubated on mechanical ventilation. Tolerating tube feeds. Gets tachypneic with low volumes on dropping pressure-support at C Pap trials. We'll initiate diuresis as patient isn't significantly positive fluid balance since admission due to fluids administered for sepsis which now appears to be under control. 06/25: Awake, appears to focus. Extubated today following C Pap trial. Continue diuresis. 06/26: [facility] reconsult note. Patient was extubated yesterday 06/25 and apparently was doing well initially. Overnight was placed on a 100% percent nonrebreather. I was called to the bedside emergently by Denny PATINO, today around 12.30 pm, patient was more unresponsive and hypoxemic on 100% nonrebreather. On my evaluation patient's eyes were open but nonresponsive, shallow breathing. Oxygen saturation 80% on 100 percent nonrebreather. Emergently intubated and placed on mechanical ventilation. Moderate amount of white secretions at glottic opening. CXR shows RLL infiltrate with volume loss? aspiration. Sputum cx. Discuss with ID Dr. Ortiz, will place on broad-spectrum antibiotics with Zosyn 06/27: Tmax 99.6 The patient was emergently reintubated yesterday, overnight no increasing ventilatory requirements were noted. The patient underwent a bronchoscopy with BAL this a.m., cultures were sent. Plan for PEG placement today. 06/28: Tmax 98.4 The patient underwent PEG placement yesterday, will resume tube feedings today. Mucomyst was initiated yesterday status post bronchial noted mucous plugs, with thick tenacious secretions. Will tentatively plan for tracheostomy next week, if unable to wean, and increasing ventilatory requirements. Objective Vital Signs Date Time Temp Pulse Resp B/P Pulse Ox O2 Delivery O2 Flow Rate FiO2 06/28/16 10:45 100 35 06/28/16 06:00 93 06/28/16 04:00 98.2 16 137/79 06/27/16 00:15 Mechanical Ventilator 06/26/16 08:00 13.00 Intake and Output 06/27/16 06/27/16 06/28/16 08:00 16:00 00:00 Intake Total 856 ml 1022 ml 1150 ml Output Total 250 ml 500 ml 550 ml Balance 606 ml 522 ml 600 ml Result Diagram: 06/27/16 0950 06/27/16 0950 Imaging Last Impressions Chest X-Ray 06/27/16 Signed Impressions: Service Date/Time: Monday, June 27, 2016 11:11 - CONCLUSION: Persistent airspace opacity at the right lung base. No pneumothorax is visualized. Reginaldo Potts MD Abdomen X-Ray 06/26/16 0000 Signed Impressions: Service Date/Time: June 13:08 - CONCLUSION: 1. Nasogastric tube in good position. Benign-appearing bowel gas pattern. Jd Underwood MD Abdomen/Pelvis CT 06/17/16 0000 Signed Impressions: Service Date/Time: Friday, June 17, 2016 04:12 - CONCLUSION: 1. New bibasilar atelectasis. 2. There is some mild dilatation of the small bowel. There is a mild to moderate distention of the colon down to the rectum suggestive of a diffuse adynamic ileus. No definite mechanical obstruction is seen. 3. Otherwise, no other significant changes compared to the prior study. Andi Luna MD Brain MRI 06/15/16 0000 Signed Impressions: Service Date/Time: Wednesday, June 15, 2016 09:10 - CONCLUSION: No acute abnormality seen. 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 Reginaldo Cain MD Head Magnetic Resonance Angiography 06/14/16 Signed Impressions: Service Date/Time: Tuesday, June 14, 2016 18:23 - CONCLUSION: No evidence of vessel truncation or aneurysm. Simone Graham MD Liver Ultrasound 06/13/16 0000 Signed Impressions: Service Date/Time: Monday, June 13, 2016 09:42 - CONCLUSION: 1. Small amount free fluid identified medial to the lower pole of the right kidney. 2. Slight increased hepatic echotexture suggesting some degree of fatty infiltration. 3. Please note the body and tail of the pancreas are obscured by overlying bowel gas. The head neck and uncinate process are sonographically intact. Mauro Leslie MD Head CT 06/12/16 0567 Signed Impressions: Service Date/Time: May 21:37 - CONCLUSION: Unremarkable study. Jose Martinez MD Renal Ultrasound 06/12/16 0000 Signed Impressions: Service Date/Time: May 23:51 - CONCLUSION: 1. Mild pelvocaliectasis on the right. No hydronephrosis involving either kidney. Simone Woody Jr., MD Chest CT 06/12/16 0000 Signed Impressions: Service Date/Time: May 21:39 - CONCLUSION: Right upper lobe parenchymal process may represent pneumonia, however follow up is suggested with repeat noncontrast chest CT in 2-4 weeksafter appropriate clinical therapy. Jose Martinez MD Last Impressions Abdomen/Pelvis CT 06/17/16 0000 Signed Impressions: Service Date/Time: Friday, June 17, 2016 04:12 - CONCLUSION: 1. New bibasilar atelectasis. 2. There is some mild dilatation of the small bowel. There is a mild to moderate distention of the colon down to the rectum suggestive of a diffuse adynamic ileus. No definite mechanical obstruction is seen. 3. Otherwise, no other significant changes compared to the prior study. Andi Luna MD Chest X-Ray 06/16/16 0000 Signed Impressions: Service Date/Time: Thursday, June 16, 2016 04:51 - CONCLUSION: Right basilar density likely atelectasis.. Chadd Kahn MD Abdomen X-Ray 06/16/16 0000 Signed Impressions: Service Date/Time: Thursday, June 16, 2016 17:15 - CONCLUSION: 1. Nonspecific bowel gas pattern which may represent a mild ileus or gastroenteritis. Rico Pedraza MD Brain MRI 06/15/16 0000 Signed Impressions: Service Date/Time: Wednesday, June 15, 2016 09:10 - CONCLUSION: No acute abnormality seen. 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 Reginaldo Cain MD Head Magnetic Resonance Angiography 06/14/16 0000 Signed Impressions: Service Date/Time: Tuesday, June 14, 2016 18:23 - CONCLUSION: No evidence of vessel truncation or aneurysm. Simone Graham MD Liver Ultrasound 06/13/16 0000 Signed Impressions: Service Date/Time: Monday, June 13, 2016 09:42 - CONCLUSION: 1. Small amount free fluid identified medial to the lower pole of the right kidney. 2. Slight increased hepatic echotexture suggesting some degree of fatty infiltration. 3. Please note the body and tail of the pancreas are obscured by overlying bowel gas. The head neck and uncinate process are sonographically intact. Mauro Leslie MD Head CT 06/12/16 1657 Signed Impressions: Service Date/Time: May 21:37 - CONCLUSION: Unremarkable study. Jose Martinez MD Renal Ultrasound 06/12/16 0000 Signed Impressions: Service Date/Time: May 23:51 - CONCLUSION: 1. Mild pelvocaliectasis on the right. No hydronephrosis involving either kidney. Simone Woody Jr., MD Chest CT 06/12/16 0000 Signed Impressions: Service Date/Time: May 21:39 - CONCLUSION: Right upper lobe parenchymal process may represent pneumonia, however follow up is suggested with repeat noncontrast chest CT in 2-4 weeksafter appropriate clinical therapy. Jose Martinez MD Objective Remarks BP 107/70 [id number] O 2 Saturation 100% GENERAL: Elderly woman unresponsive, intubated and sedated SKIN: Warm and dry. HEAD: Normocephalic. EYES: Pallor present, No scleral icterus. No injection or drainage. NECK: Supple, trachea midline. Orotracheally intubated CARDIOVASCULAR: Tachycardic rate and rhythm without murmurs, gallops, or rubs. RESPIRATORY: Mechanical ventilation Breath sounds diminished B/L bases. GASTROINTESTINAL: Abdomen soft, non-tender, nondistended. Noted PEG in situ, no erythema or drainage . MUSCULOSKELETAL: No cyanosis, or edema. EXTREMITIES: No clubbing cyanosis or edema NEURO: Eyes are open, but patient is unresponsive, no response to sternal rub. Urinary Catheter: Yes Cortes insert reason: Measure Accurate Output A/P Assessment and Plan ASSESSMENT: Acute hypoxemic respiratory failure Probable aspiration/HCAP with R volume loss Encephalopathy SIRS/sepsis UTI Staph aureus pneumonia Acute kidney injury Rhabdo Hypernatremia Hypokalemia Anemia Lactic acidemia Leukocytosis- resolved Elevated LFT PLAN: Neuro: Emergently intubated today 06/26/16. Placed on propofol for sedation for ventilator synchrony CT brain: No acute findings. UDS+ +Benzos MRA brain 06/14- Unremarkable. s/p LP showed clear CSF and 15 WBC. EEG: Bihemispheric slowing, small sharp waves b/l Neuro is following- Dr. Boggs, On Keppra 500mg Q12 Pulm: Emergently intubated and placed on mechanical ventilation for acute hypoxemic respiratory failure on 06/26/16 Extubated 06/25, progressive hypoxia, on NRB prior to intubation. CXR RLL infiltrate with some volume loss Broad-spectrum antibiotics to cover for aspiration (Zosyn). Check sputum Bronchodilators, ICU vent bundle. Thick tenacious secretions noted on bronchoscopy, Mucomyst added to medication regimen 3 days 06/27-Bronchoscopy with BAL cultures sent Tentative plan for tracheostomy secondary to prolonged mechanical ventilation, and failure to wean. CV: Monitor HR and BP keep MAP>65mmHg. Initiated diuresis with Lasix on 06/24 to mobilize fluid. : Monitor renal function, I/O's, avoid nephrotoxins. Electrolytes replacement per protocol. Renal US: No hydronephrosis. Renal is following- Dr. Corral GI/liver: On Pepcid 20meq IV qhs, resume tube feeds with Glucerna in 24 hours Monitor LFT's ( trending down), US liver: Fatty liver. Elevated urinary copper - GI is following. CT abdomen/pelvis 06/17- findings suggestive of adynamic ileus. No mechanical obstruction. On Reglan 5mg Iv q8 PRN, Miralax, Lactulose 06/27 PEG placement, resume tube feeds today ID: Had been off all antibiotics. 06/26 Placed on IV Zosyn, Vanc due Acute respiratory decompensation and intubation, probable aspiration (Initial Abx switched from Zyvox,Zosyn to Rocephin on 06/19, had been off all ABX ) Pertinent cultures: 06/12 Urine cx: E.coli 06/12 BC: No growth 06/12 CSG: NGTD 06/15 urine: E coli, sputum: MSSA 06/26: Blood sputum and urine cultures sent pending Heme: Thrombocytopenia-resolved Monitor CBC, coags Hep plt ab negative. Endo: SSI for glycemic control, TSH level: 2.5 GI Prophylaxis with Pepcid DVT prophylaxis with SCD, not on chemical DVT prophylaxis 2nd to thrombocytopenia Palliative care following to assist with deciding goals of therapy. Patient's wishes to continue full CODE STATUS at this time. This patient remains critically ill with one or more organ systems which are or may become a threat to life. I have spent in excess of 35 minutes discontinuously in the care and management of this patient. This time is exclusive of procedures, and includes, but is not limited to, evaluation of the patient, review of the medical record, discussions with family, consultants, nursing staff, or respiratory therapy, and documentation in the medical record. Physician Stacy Reeves MD June 28, 2016 12:07
--- NOTE | 2016-06-28 15:19 | HHI.GIFU ---
Subjective Remarks Patient is intubated on a vent. minimal leakage around the PEG site, (French Borrego) Objective Vitals I&O Vital Signs Date Time Temp Pulse Resp B/P Pulse Ox O2 Delivery O2 Flow Rate FiO2 06/28/16 13:35 100 35 06/28/16 10:45 100 35 06/28/16 08:42 100 35 06/28/16 06:00 93 06/28/16 04:40 100 35 06/28/16 04:00 98.2 104 16 137/79 100 06/28/16 04:00 35 06/28/16 04:00 104 06/28/16 02:00 98 06/28/16 00:28 100 35 06/28/16 00:00 35 06/28/16 00:00 98.4 93 16 130/77 100 06/28/16 00:00 93 06/27/16 22:00 87 06/27/16 21:00 97 35 06/27/16 20:00 98 06/27/16 20:00 35 06/27/16 20:00 98.0 98 16 114/71 100 06/27/16 18:00 95 06/27/16 18:00 95 16 122/75 100 06/27/16 17:00 97 16 115/77 100 06/27/16 16:21 100 35 06/27/16 16:00 92 06/27/16 16:00 97.7 92 16 123/76 100 06/27/16 16:00 40 I/O 06/27/16 06/27/16 06/27/16 06/28/16 06/28/16 06/28/16 07:00 15:00 23:00 07:00 15:00 23:00 Intake Total 856 ml 1022 ml 1150 ml 123 ml Output Total 250 ml 500 ml 550 ml 500 ml Balance 606 ml 522 ml 600 ml -377 ml Intake IV Total 826 ml 872 ml 1050 ml 123 ml Tube Irrigant 150 ml 100 ml Other 30 ml Output Urine Total 250 ml 500 ml 550 ml 500 ml # Bowel Movements 1 3 1 0 Laboratory Laboratory Tests Test 06/28/16 08:30 Vancomycin Level Trough 26.3 Date/Time Procedure Status Source Growth 06/27/16 10:25 Gram Stain - Final Resulted Bronchial Washings Bronchial 06/27/16 10:25 Bronchial Culture - Preliminary Resulted Bronchial Washings Bronchial NO GROWTH IN 24 HOURS. 06/27/16 10:25 Fungal Smear - Final Resulted Bronchial Washings Bronchial NO FUNGAL ELEMENTS SEEN. 06/27/16 10:25 Fungal Culture Resulted Bronchial Washings Bronchial Pending 06/27/16 10:25 Acid Fast Stain - Final Resulted Bronchial Washings Bronchial NO ACID FAST BACILLI SEEN 06/27/16 10:25 Mycobacterial Culture Resulted Bronchial Washings Bronchial Pending 06/27/16 10:25 Cancelled Mini Bronchoalveolar Lavage 06/26/16 15:42 Aerobic Blood Culture - Preliminary Resulted Blood Peripheral NO GROWTH IN 2 DAYS 06/26/16 15:42 Anaerobic Blood Culture - Preliminary Resulted Blood Peripheral NO GROWTH IN 2 DAYS 06/26/16 13:45 Urine Culture - Preliminary Resulted Urine Catheterized Urine Pseudomonas Aeruginosa Imaging Last Impressions Chest X-Ray 06/27/16 0000 Signed Impressions: Service Date/Time: Monday, June 27, 2016 11:11 - CONCLUSION: Persistent airspace opacity at the right lung base. No pneumothorax is visualized. Reginaldo Potts MD Abdomen X-Ray 06/26/16 0000 Signed Impressions: Service Date/Time: June 13:08 - CONCLUSION: 1. Nasogastric tube in good position. Benign-appearing bowel gas pattern. Jd Underwood MD Abdomen/Pelvis CT 06/17/16 0000 Signed Impressions: Service Date/Time: Friday, June 17, 2016 04:12 - CONCLUSION: 1. New bibasilar atelectasis. 2. There is some mild dilatation of the small bowel. There is a mild to moderate distention of the colon down to the rectum suggestive of a diffuse adynamic ileus. No definite mechanical obstruction is seen. 3. Otherwise, no other significant changes compared to the prior study. Andi Luna MD Brain MRI 06/15/16 0000 Signed Impressions: Service Date/Time: Wednesday, June 15, 2016 09:10 - CONCLUSION: No acute abnormality seen. 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 Reginaldo Cain MD Head Magnetic Resonance Angiography 06/14/16 0000 Signed Impressions: Service Date/Time: Tuesday, June 14, 2016 18:23 - CONCLUSION: No evidence of vessel truncation or aneurysm. Simone Graham MD Liver Ultrasound 06/13/16 0000 Signed Impressions: Service Date/Time: Monday, June 13, 2016 09:42 - CONCLUSION: 1. Small amount free fluid identified medial to the lower pole of the right kidney. 2. Slight increased hepatic echotexture suggesting some degree of fatty infiltration. 3. Please note the body and tail of the pancreas are obscured by overlying bowel gas. The head neck and uncinate process are sonographically intact. Mauro Leslie MD Head CT 06/12/16 1657 Signed Impressions: Service Date/Time: May 21:37 - CONCLUSION: Unremarkable study. Jose Martinez MD Renal Ultrasound 06/12/16 0000 Signed Impressions: Service Date/Time: May 23:51 - CONCLUSION: 1. Mild pelvocaliectasis on the right. No hydronephrosis involving either kidney. Simone Woody Jr., MD Chest CT 06/12/16 0000 Signed Impressions: Service Date/Time: May 21:39 - CONCLUSION: Right upper lobe parenchymal process may represent pneumonia, however follow up is suggested with repeat noncontrast chest CT in 2-4 weeksafter appropriate clinical therapy. Jose Martinez MD Physical Exam HEENT: Normocephalic; no jaundice. CHEST: OETT to vent. Course breath sounds. CARDIAC: RRR ABDOMEN: Soft, round, nondistended, nontender; no hepatosplenomegaly; bowel sounds are present in all four quadrants.PEG EXTREMITIES: Generalized edema. Neuro: Sedated on vent. (French Borrego) Assessment and Plan Plan ASSESSMENT: - Dysphagia- S/P EGD/PEG on (06/27/16) mild gastritis was found in the antrum - Mild ileus- abd X-ray on (06/26/16) Benign appearing bowel gas pattern Plan: - TF per dietary recommendations - Flush tube with 250 ml of water every shift - Gi will sign off - Supportive care - Pt seen and examined by Dr. Davis and myself and this note is written on his behalf (French Borrego) Physician Comments Seen and examined, s/p peg. TF as tolerated, flush q shift. Gi will sign off, reconsult as needed. Thank you (Teodoro Davis MD) French Borrego June 28, 2016 15:19 Teodoro Davis MD June 28, 2016 15:36
[2016-06-28] MEDS: FAMOTIDINE 20 MG/2 ML VIAL IV PUSH SCH (20:18)
[2016-06-28 21:49] LABS: MEAN CELL VOLUME 80.4 FL (80.0-100.0); MEAN CORPUSCULAR HEMOGLOBIN 26.4 PG (27.0-34.0); MEAN CORPUSCULAR HGB CONC 32.8 % (32.0-36.0); PLATELET COUNT 374 TH/MM3 (150-450); RED BLOOD COUNT 2.61 MIL/MM3 (4.00-5.30); RED CELL DISTRIBUTION WIDTH 16.7 % (11.6-17.2); WHITE BLOOD COUNT 7.4 TH/MM3 (4.0-11.0)
[2016-06-28 21:51] LABS: REVIEW FLAG FINAL
[2016-06-29] VITALS (22 sets, daily range): BP systolic 108–173; BP diastolic 62–98; PULSE 90–104; RESP 16–20; TEMP 97.5–100.5; O2SAT 94–100
[2016-06-29] MEDS: VANCOMYCIN 1,500 MG/NS 500 ML IV SCH ×4 (03:18→19:58)
[2016-06-29] MEDS: PIPERACIL-TAZO 4.5 GM PREMIX 100 ML IV SCH ×4 (03:19→19:58)
[2016-06-29] MEDS: CHLORHEXIDINE GLUCONATE 2 % 1 PACK (2 CLOTHS) TOP SCH (04:00)
[2016-06-29] MEDS: RESP: ALBUTEROL 2.5 MG/IPRATROPIUM 0.5 MG NEB (SCH) NEB ×4 (04:07→20:16)
[2016-06-29 06:05] LABS: HEMATOCRIT 29.5 % (35.0-46.0); MEAN CELL VOLUME 80.2 FL (80.0-100.0); MEAN CORPUSCULAR HEMOGLOBIN 26.3 PG (27.0-34.0); MEAN CORPUSCULAR HGB CONC 32.8 % (32.0-36.0); PLATELET COUNT 360 TH/MM3 (150-450); RED BLOOD COUNT 3.68 MIL/MM3 (4.00-5.30); REVIEW FLAG FINAL; WHITE BLOOD COUNT 9.3 TH/MM3 (4.0-11.0)
[2016-06-29 06:33] LABS: BICARBONATE 24.5 MEQ/L (21.0-32.0); MAGNESIUM 2.1 MG/DL (1.5-2.5); POTASSIUM 3.1 MEQ/L (3.5-5.1)
[2016-06-29] MEDS: POTASSIUM CHLOR 40 MEQ PREMIX 100 ML IV PRN ×2 (06:44→12:08)
[2016-06-29] MEDS: SODIUM CHLORIDE 0.9% FLUSH 10 ML FLUSH IV FLUSH SCH ×2 (09:00→19:58)
[2016-06-29] MEDS: levETIRAcetam INJ 500 MG in SODIUM CHLORIDE 0.9% INJ 100 ML IV SCH ×2 (09:33→19:58)
[2016-06-29] MEDS: LACTULOSE SYRUP 20 GM/30 ML CUP PO SCH ×2 (09:35→19:58)
[2016-06-29] MEDS: METOPROLOL TARTRATE 25 MG TAB PO SCH ×2 (09:35→19:59)
[2016-06-29] MEDS: BACLOFEN 10 MG TAB PO SCH ×3 (09:35→18:29)
[2016-06-29] MEDS: PREGABALIN 75 MG CAP PO SCH ×2 (09:35→19:59)
[2016-06-29] MEDS: POLYETHYLENE GLYCOL 17 GM PKG PO SCH (09:35)
[2016-06-29] MEDS: CHLORHEXIDINE 0.12% (ORAL KIT) 15 ML CUP MT SCH ×2 (09:36→19:57)
[2016-06-29] MEDS: RESP: ACETYLCYSTEINE 10% 30 ML NEB NEB SCH ×2 (10:02→15:50)
--- NOTE | 2016-06-29 16:51 | HHI.CCPN ---
Subjective Remarks/Hospital Course 56-year-old female brought in by EMS emergently as altered mental status, hypoxia and temperature 104. Patient has a history of CVA many years ago. Per caregiver she didn't feel well since yesterday and wasn't taking any of medications including baclofen. Patient was unable to communicate due to her altered mental status. As per EMS not much history was available from the family but she has history of CVA as baseline but communicates. In the emergency department patient's oxygen saturation was low 70s upon EMS arrival. They had her on oxygen via nonrebreather and sats of 93%. GCS was 6 and she was intubated by ER attending for an airway protection. 06/13 Patient is sedated with Versed and on Bicarb drip. Renal function is improving with Cr: 2.12 from 3.19 UO: 1350ml since yesterday. Afebrile. 06/14 Patient remains sedated and intubated. Afebrile. Renal function continue to improve with Cr: 1.18 today from 1.53. 06/15 No acute events overnight. Off sedation remains intubated. Patient tolerated CPAP all day yesterday. MRA brain last night is unremarkable. T:99.9 06/16 Patient remains intubated off sedation. Afebrile. Tolerated CPAP all day yesterday remains encephalopathic. 06/17 No acute events overnight. Patient is able to open her eyes but does not follow commands. T: 100.1 last night. 06/18: Remains encephalopathic, orally intubated on mechanical ventilation. 06/19: Remains encephalopathic, orally intubated on mechanical ventilation. Daily C Pap trials ongoing. 06/20: Remains encephalopathic, orally intubated on mechanical ventilation. Daily C Pap trials. Tube feeds resumed. 06/21: More awake however not following commands. Remains orally intubated on mechanical ventilation. Tolerating tube feeds. Daily C Pap trials ongoing. 06/22: Encephalopathic though more awake, arousable. Not following commands. Remains orally intubated on mechanical ventilation. Tolerating tube feeds. Daily C Pap trials. 06/23: Awake, not following commands. Remains orally intubated on mechanical ventilation. Failing C Pap trials. Tolerating tube feeds. 06/24: Opening eyes, blinks on command. Remains orally intubated on mechanical ventilation. Tolerating tube feeds. Gets tachypneic with low volumes on dropping pressure-support at C Pap trials. We'll initiate diuresis as patient isn't significantly positive fluid balance since admission due to fluids administered for sepsis which now appears to be under control. 06/25: Awake, appears to focus. Extubated today following C Pap trial. Continue diuresis. 06/26: CCM reconsult note. Patient was extubated yesterday 06/25 and apparently was doing well initially. Overnight was placed on a 100% percent nonrebreather. I was called to the bedside emergently by Denny PATINO, today around 12.30 pm, patient was more unresponsive and hypoxemic on 100% nonrebreather. On my evaluation patient's eyes were open but nonresponsive, shallow breathing. Oxygen saturation 80% on 100 percent nonrebreather. Emergently intubated and placed on mechanical ventilation. Moderate amount of white secretions at glottic opening. CXR shows RLL infiltrate with volume loss? aspiration. Sputum cx. Discuss with ID Dr. Ortiz, will place on broad-spectrum antibiotics with Zosyn 06/27: Tmax 99.6 The patient was emergently reintubated yesterday, overnight no increasing ventilatory requirements were noted. The patient underwent a bronchoscopy with BAL this a.m., cultures were sent. Plan for PEG placement today. 06/28: Tmax 98.4 The patient underwent PEG placement yesterday, will resume tube feedings today. Mucomyst was initiated yesterday status post bronchial noted mucous plugs, with thick tenacious secretions. Will tentatively plan for tracheostomy next week, if unable to wean, and increasing ventilatory requirements. 06/29: She was noted to have a drop in hemoglobin last night, and received 2 units of packed red blood cells. Hemoccult has been ordered stat CBC to be followed up. No obvious signs of bleeding noted. Objective Vital Signs Date Time Temp Pulse Resp B/P Pulse Ox O2 Delivery O2 Flow Rate FiO2 06/29/16 13:54 100 35 06/29/16 12:00 98.9 06/29/16 06:00 104 16 161/93 06/27/16 00:15 Mechanical Ventilator 06/26/16 08:00 13.00 Intake and Output 06/28/16 06/28/16 06/29/16 08:00 16:00 00:00 Intake Total 123 ml 849 ml 822 ml Output Total 500 ml 800 ml 650 ml Balance -377 ml 49 ml 172 ml Result Diagram: 06/29/16 0535 06/29/16 0535 Other Results Microbiology Date/Time Procedure Status Source Growth 06/27/16 10:25 Gram Stain - Final Complete Bronchial Washings Bronchial 06/27/16 10:25 Bronchial Culture - Final Complete Bronchial Washings Bronchial NO GROWTH IN 48 HOURS. 06/27/16 10:25 Gram Stain - Final Complete Bronchial Washings Bronchial 06/27/16 10:25 Bronchial Culture - Final Complete Bronchial Washings Bronchial NO GROWTH IN 48 HOURS. Imaging Last Impressions Chest X-Ray 06/27/16 0000 Signed Impressions: Service Date/Time: Monday, June 27, 2016 11:11 - CONCLUSION: Persistent airspace opacity at the right lung base. No pneumothorax is visualized. Reginaldo Potts MD Abdomen X-Ray 06/26/16 0000 Signed Impressions: Service Date/Time: June 13:08 - CONCLUSION: 1. Nasogastric tube in good position. Benign-appearing bowel gas pattern. Jd Underwood MD Abdomen/Pelvis CT 06/17/16 0000 Signed Impressions: Service Date/Time: Friday, June 17, 2016 04:12 - CONCLUSION: 1. New bibasilar atelectasis. 2. There is some mild dilatation of the small bowel. There is a mild to moderate distention of the colon down to the rectum suggestive of a diffuse adynamic ileus. No definite mechanical obstruction is seen. 3. Otherwise, no other significant changes compared to the prior study. Andi Luna MD Brain MRI 06/15/16 0000 Signed Impressions: Service Date/Time: Wednesday, June 15, 2016 09:10 - CONCLUSION: No acute abnormality seen. 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 Reginaldo Cain MD Head Magnetic Resonance Angiography 06/14/16 0000 Signed Impressions: Service Date/Time: Tuesday, June 14, 2016 18:23 - CONCLUSION: No evidence of vessel truncation or aneurysm. Simone Graham MD Liver Ultrasound 06/13/16 0000 Signed Impressions: Service Date/Time: Monday, June 13, 2016 09:42 - CONCLUSION: 1. Small amount free fluid identified medial to the lower pole of the right kidney. 2. Slight increased hepatic echotexture suggesting some degree of fatty infiltration. 3. Please note the body and tail of the pancreas are obscured by overlying bowel gas. The head neck and uncinate process are sonographically intact. Mauro Leslie MD Head CT 06/12/16 1657 Signed Impressions: Service Date/Time: May 21:37 - CONCLUSION: Unremarkable study. Jose Martinez MD Renal Ultrasound 06/12/16 Signed Impressions: Service Date/Time: May 23:51 - CONCLUSION: 1. Mild pelvocaliectasis on the right. No hydronephrosis involving either kidney. Simone Woody Jr., MD Chest CT 06/12/16 Signed Impressions: Service Date/Time: May 21:39 - CONCLUSION: Right upper lobe parenchymal process may represent pneumonia, however follow up is suggested with repeat noncontrast chest CT in 2-4 weeksafter appropriate clinical therapy. Jose Martinez MD Last Impressions Abdomen/Pelvis CT 06/17/16 Signed Impressions: Service Date/Time: Friday, June 17, 2016 04:12 - CONCLUSION: 1. New bibasilar atelectasis. 2. There is some mild dilatation of the small bowel. There is a mild to moderate distention of the colon down to the rectum suggestive of a diffuse adynamic ileus. No definite mechanical obstruction is seen. 3. Otherwise, no other significant changes compared to the prior study. Andi Luna MD Chest X-Ray 06/16/16 Signed Impressions: Service Date/Time: Thursday, June 16, 2016 04:51 - CONCLUSION: Right basilar density likely atelectasis.. Chadd Kahn MD Abdomen X-Ray 06/16/16 Signed Impressions: Service Date/Time: Thursday, June 16, 2016 17:15 - CONCLUSION: 1. Nonspecific bowel gas pattern which may represent a mild ileus or gastroenteritis. Rico Pedraza MD Brain MRI 06/15/16 Signed Impressions: Service Date/Time: Wednesday, June 15, 2016 09:10 - CONCLUSION: No acute abnormality seen. 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 Reginaldo Cain MD Head Magnetic Resonance Angiography 06/14/16 0000 Signed Impressions: Service Date/Time: Tuesday, June 14, 2016 18:23 - CONCLUSION: No evidence of vessel truncation or aneurysm. Simone Graham MD Liver Ultrasound 06/13/16 Signed Impressions: Service Date/Time: Monday, June 13, 2016 09:42 - CONCLUSION: 1. Small amount free fluid identified medial to the lower pole of the right kidney. 2. Slight increased hepatic echotexture suggesting some degree of fatty infiltration. 3. Please note the body and tail of the pancreas are obscured by overlying bowel gas. The head neck and uncinate process are sonographically intact. Mauro Leslie MD Head CT 06/12/[id number] Signed Impressions: Service Date/Time: May 21:37 - CONCLUSION: Unremarkable study. Jose Martinez MD Renal Ultrasound 06/12/16 Signed Impressions: Service Date/Time: May 23:51 - CONCLUSION: 1. Mild pelvocaliectasis on the right. No hydronephrosis involving either kidney. Simone Woody Jr., MD Chest CT 06/12/16 Signed Impressions: Service Date/Time: May 21:39 - CONCLUSION: Right upper lobe parenchymal process may represent pneumonia, however follow up is suggested with repeat noncontrast chest CT in 2-4 weeksafter appropriate clinical therapy. Jose Martinez MD Objective Remarks BP 107/70 [id number] O 2 Saturation 100% GENERAL: Elderly woman unresponsive, intubated and sedated SKIN: Warm and dry. HEAD: Normocephalic. EYES: Pallor present, No scleral icterus. No injection or drainage. NECK: Supple, trachea midline. Orotracheally intubated CARDIOVASCULAR: Tachycardic rate and rhythm without murmurs, gallops, or rubs. RESPIRATORY: Mechanical ventilation Breath sounds diminished B/L bases. GASTROINTESTINAL: Abdomen soft, non-tender, nondistended. Noted PEG in situ, no erythema or drainage . MUSCULOSKELETAL: No cyanosis, or edema. EXTREMITIES: No clubbing cyanosis or edema NEURO: Eyes are open, but patient is unresponsive, no response to sternal rub. Urinary Catheter: Yes Assessment to: Continue A/P Assessment and Plan ASSESSMENT: Acute hypoxemic respiratory failure Probable aspiration/HCAP with R volume loss Encephalopathy SIRS/sepsis UTI Staph aureus pneumonia Acute kidney injury Rhabdo Hypernatremia Hypokalemia Anemia Lactic acidemia Leukocytosis- resolved Elevated LFT PLAN: Neuro: Emergently intubated today 06/26/16. Placed on propofol for sedation for ventilator synchrony CT brain: No acute findings. UDS+ +Benzos MRA brain 06/14- Unremarkable. s/p LP showed clear CSF and 15 WBC. EEG: Bihemispheric slowing, small sharp waves b/l Neuro is following- Dr. Boggs, On Keppra 500mg Q12 Pulm: Emergently intubated and placed on mechanical ventilation for acute hypoxemic respiratory failure on 06/26/16 Extubated 06/25, progressive hypoxia, on NRB prior to intubation. CXR RLL infiltrate with some volume loss Broad-spectrum antibiotics to cover for aspiration (Zosyn). Check sputum Bronchodilators, ICU vent bundle. Thick tenacious secretions noted on bronchoscopy, Mucomyst added to medication regimen 3 days 06/27-Bronchoscopy with BAL cultures sent Tentative plan for tracheostomy secondary to prolonged mechanical ventilation, and failure to wean. CV: Monitor HR and BP keep MAP>65mmHg. Initiated diuresis with Lasix on 06/24 to mobilize fluid. : Monitor renal function, I/O's, avoid nephrotoxins. Electrolytes replacement per protocol. Renal US: No hydronephrosis. Renal is following- Dr. Corral GI/liver: On Pepcid 20meq IV qhs, resume tube feeds with Glucerna in 24 hours Monitor LFT's ( trending down), US liver: Fatty liver. Elevated urinary copper - GI is following. CT abdomen/pelvis 06/17- findings suggestive of adynamic ileus. No mechanical obstruction. On Reglan 5mg Iv q8 PRN, Miralax, Lactulose 06/27 PEG placement, resume tube feeds today ID: Had been off all antibiotics. 06/26 Placed on IV Zosyn, Vanc due Acute respiratory decompensation and intubation, probable aspiration (Initial Abx switched from Zyvox,Zosyn to Rocephin on 06/19, had been off all ABX ) Pertinent cultures: 06/12 Urine cx: E.coli 06/12 BC: No growth 06/12 CSG: NGTD 06/15 urine: E coli, sputum: MSSA 06/26: Blood sputum and urine cultures sent pending Heme: Thrombocytopenia-resolved Anemia Monitor CBC, coags Hep plt ab negative. 06/28-Transfused 2 units of PRBCs Endo: SSI for glycemic control, TSH level: 2.5 GI Prophylaxis with Pepcid DVT prophylaxis with SCD, not on chemical DVT prophylaxis 2nd to thrombocytopenia Palliative care following to assist with deciding goals of therapy. Patient's wishes to continue full CODE STATUS at this time. This patient remains critically ill with one or more organ systems which are or may become a threat to life. I have spent in excess of 30 minutes discontinuously in the care and management of this patient. This time is exclusive of procedures, and includes, but is not limited to, evaluation of the patient, review of the medical record, discussions with family, consultants, nursing staff, or respiratory therapy, and documentation in the medical record. Physician Stacy Reeves MD June 29, 2016 16:51
[2016-06-29] MEDS: FAMOTIDINE 20 MG/2 ML VIAL IV PUSH SCH (19:58)
[2016-06-30] VITALS (27 sets, daily range): BP systolic 102–157; BP diastolic 58–90; PULSE 75–108; RESP 13–22; TEMP 98.4–99.3; O2SAT 96–100
[2016-06-30] MEDS: PIPERACIL-TAZO 4.5 GM PREMIX 100 ML IV SCH ×2 (02:49→08:41)
[2016-06-30] MEDS: CHLORHEXIDINE GLUCONATE 2 % 1 PACK (2 CLOTHS) TOP SCH (02:52)
[2016-06-30] MEDS: RESP: ALBUTEROL 2.5 MG/IPRATROPIUM 0.5 MG NEB (SCH) NEB ×2 (03:08→11:47)
[2016-06-30] MEDS: RESP: ACETYLCYSTEINE 10% 30 ML NEB NEB SCH ×3 (03:42→17:16)
[2016-06-30 04:57] LABS: HEMATOCRIT 28.8 % (35.0-46.0); MEAN CELL VOLUME 81.3 FL (80.0-100.0); MEAN CORPUSCULAR HEMOGLOBIN 26.3 PG (27.0-34.0); MEAN CORPUSCULAR HGB CONC 32.3 % (32.0-36.0); PLATELET COUNT 383 TH/MM3 (150-450); RED BLOOD COUNT 3.54 MIL/MM3 (4.00-5.30); RED CELL DISTRIBUTION WIDTH 16.8 % (11.6-17.2); REVIEW FLAG FINAL; WHITE BLOOD COUNT 7.9 TH/MM3 (4.0-11.0)
[2016-06-30 05:39] LABS: BICARBONATE 26.3 MEQ/L (21.0-32.0); MAGNESIUM 2.1 MG/DL (1.5-2.5); POTASSIUM 3.5 MEQ/L (3.5-5.1)
[2016-06-30] MEDS: CHLORHEXIDINE 0.12% (ORAL KIT) 15 ML CUP MT SCH ×2 (08:00→22:08)
[2016-06-30] MEDS: BACLOFEN 10 MG TAB PO SCH ×3 (08:40→18:44)
[2016-06-30] MEDS: POLYETHYLENE GLYCOL 17 GM PKG PO SCH (08:40)
[2016-06-30] MEDS: PREGABALIN 75 MG CAP PO SCH ×2 (08:40→22:08)
[2016-06-30] MEDS: levETIRAcetam INJ 500 MG in SODIUM CHLORIDE 0.9% INJ 100 ML IV SCH ×2 (08:40→22:07)
[2016-06-30] MEDS: LACTULOSE SYRUP 20 GM/30 ML CUP PO SCH ×2 (08:40→21:00)
[2016-06-30] MEDS: METOPROLOL TARTRATE 25 MG TAB PO SCH ×2 (08:40→22:08)
[2016-06-30] MEDS: SODIUM CHLORIDE 0.9% FLUSH 10 ML FLUSH IV FLUSH SCH (09:00)
--- NOTE | 2016-06-30 11:18 | HHI.HCPN ---
Reason for visit a. To assist with evaluation and management of symptoms including: Dyspnea , encephalopathy b. To assist medical decision maker(s) with: better understanding of current medical conditions; weighing benefits/burdens of medical treatment options; making medical treatment decisions. . Subjective/Interval History INTERVAL NOTE: Patient was successfully extubated on 06/25/16 but required emergency re- intubation on 06/26/16 when 02 sats were only 80% on 100% FI02. CXR at the time showed RLL infiltrate with volume loss. She underwent bronchoscopy with alveolar lavage on 06/27 which revealed thick secretions/mucous plugs. PEG tube was also placed on 06/27/16. In addition, Hg dropped tfrom 8.3 on 06/26 to 6.9 on 06/28 and pt was transfused with 2 units of PRBCs. There was some gastrtitis on EGD at time of PEG insertion, but no other bleeding source has been noted. Patient's opens eyes to loud voice/exam at time of my visit but quickly drifts off when not stimulated. Unable to follow commands or respond to me. I spoke with bill checker -- Dr. Medellin -- who plans to go forward with tracheostomy on if there is no significant improvement. .Afebrile. Hemodynamically stable. remains mechanically ventilated on 35% FIO02. Bowels moving well. Urine output good but still in positive fluid balance. WBC 7.9. Hg 9.3. Renal function good. . Family/friend interactions Spoke with via phone for about 15 minutes. I brought him up to date to make sure he was aware of need for re-intubation, bronchoscopy, blood loss with transfusion, etc. I relayed Dr. Medellin's plan for tracheostomy later this week. I spoke about care needs and venues of care if she is unable to wean from the ventilator. I let know that every step of the way we will want to pause and make sure we are doing exactly what the patient would want under the circumstances. Mr. Velazquez remains adamant that he wants everything done to prolong her life ( including tracheostomy). . Advance Directives Living Will: Completed, but not made available Health Care Surrogate: Completed, but not made available Advance Directive Specifics Date completed: A living will was shown to our palliative care executive secretary social welfare -- Nicole Woody. Unfortunately, it did not have year/date on it and was missing appropriate witness signatures. It did show intent to designate her as the Health care surrogate. Without a year/date, it is difficult to know if the document was executed while the patient was fully capacitated or not. . Health Care Surrogate(s): A living will was shown to our palliative care executive secretary social welfare -- Nicole Woody. Unfortunately, it did not have year/date on it and was missing appropriate witness signatures. It did show intent to designate her as the Health care surrogate. Without a year/date, it is difficult to know if the document was executed while the patient was fully capacitated or not. . Documented care wishes: A living will was shown to our palliative care executive secretary social welfare -- Nicole Woody. Unfortunately, it did not have year/date on it and was missing appropriate witness signatures. It did show intent to designate her as the Health care surrogate. Without a year/date, it is difficult to know if the document was executed while the patient was fully capacitated or not. . . Objective Vital Signs Date Time Temp Pulse Resp B/P Pulse Ox O2 Delivery O2 Flow Rate FiO2 06/30/16 06:00 97 06/30/16 04:00 103 06/30/16 04:00 98.6 103 16 157/90 100 06/30/16 04:00 35 06/30/16 03:48 97 35 06/30/16 02:00 102 06/30/16 01:21 99 35 06/30/16 00:00 98.9 89 16 138/81 100 06/30/16 00:00 35 06/30/16 00:00 89 06/29/16 22:00 95 06/29/16 20:16 99 35 06/29/16 20:00 99.1 103 20 153/97 98 06/29/16 20:00 103 06/29/16 20:00 35 06/29/16 17:42 100 35 06/29/16 16:00 98.6 99 16 142/81 100 06/29/16 16:00 35 06/29/16 13:54 100 35 06/29/16 12:00 98.9 06/29/16 12:00 35 06/29/16 11:37 97 35 Intake & Output 06/30/16 06/30/16 06:59 18:59 Intake Total 2112 ml Output Total 1500 ml Balance 612 ml IV Total 1059 ml Tube Feeding 753 ml Tube Irrigant 300 ml Output Urine Total 1500 ml # Bowel Movements 2 . Physical Exam CONSTITUTIONAL/GENERAL: This is an adequately nourished patient, in no apparent distress. She is intubated and mechanically ventilated in an MICU bed. She awakens briefly to loud voice and exam, but quickly drifts off and does not follow commands or make any attempt to respond. TUBES/LINES/DRAINS: Cortes catheter, IV; orotracheal tube; right wrist splint; SCDs; PODUS boots. SKIN: No jaundice, rashes, or lesions. No wounds seen anteriorly. Skin temperature appropriate. Not diaphoretic. NECK: Trachea midline. CARDIOVASCULAR: Regular rhythm without murmurs, gallops, or rubs. No JVD. Peripheral pulses symmetric. RESPIRATORY/CHEST: Symmetric, unlabored respirations. Scattered rhonchi. GASTROINTESTINAL: Abdomen soft, non-tender, nondistended. No hepato-splenomegaly , or palpable masses. No guarding. Bowel sounds present. GENITOURINARY: Without palpable bladder distension. Cortes catheter in place. MUSCULOSKELETAL: Extremities without clubbing, cyanosis, or edema. No calf tenderness. No mottling. NEUROLOGICAL: Eyes are open, appears awake, but does not track and does not follow simple command, lethargic PSYCHIATRIC: No obvious anxiety, restlessness. Difficult to assess mood -- not communicating. . . Diagnostic Tests Laboratory Laboratory Tests Test 06/28/16 06/28/16 06/28/16 06/29/16 08:30 21:15 22:40 05:35 Vancomycin Level Trough 26.3 MCG/ML (5.0-10.0) White Blood Count 7.4 TH/MM3 9.3 TH/MM3 (4.0-11.0) (4.0-11.0) Red Blood Count 2.61 MIL/MM3 3.68 MIL/MM3 (4.00-5.30) (4.00-5.30) Hemoglobin 6.9 GM/DL 9.7 GM/DL (11.6-15.3) (11.6-15.3) Hematocrit 21.0 % 29.5 % (35.0-46.0) (35.0-46.0) Mean Corpuscular Volume 80.4 FL 80.2 FL (80.0-100.0) (80.0-100.0) Mean Corpuscular Hemoglobin 26.4 PG 26.3 PG (27.0-34.0) (27.0-34.0) Mean Corpuscular Hemoglobin 32.8 % 32.8 % Concent (32.0-36.0) (32.0-36.0) Red Cell Distribution Width 16.7 % 16.0 % (11.6-17.2) (11.6-17.2) Platelet Count 374 TH/MM3 360 TH/MM3 (150-450) (150-450) Mean Platelet Volume 8.9 FL 8.5 FL (7.0-11.0) (7.0-11.0) Blood Type O POSITIVE Antibody Screen NEGATIVE Crossmatch Leukocyte-Reduced Red Blood Cells Blood Bank Comment Sodium Level 142 MEQ/L (136-145) Potassium Level 3.1 MEQ/L (3.5-5.1) Chloride Level 108 MEQ/L (98-107) Carbon Dioxide Level 24.5 MEQ/L (21.0-32.0) Anion Gap 10 MEQ/L (5-15) Blood Urea Nitrogen 6 MG/DL (7-18) Creatinine 0.48 MG/DL (0.50-1.00) Estimat Glomerular Filtration 162 ML/MIN Rate (>89) Random Glucose 93 MG/DL (74-106) Calcium Level 8.4 MG/DL (8.5-10.1) Phosphorus Level 2.9 MG/DL (2.5-4.9) Magnesium Level 2.1 MG/DL (1.5-2.5) Test 06/30/16 03:10 White Blood Count 7.9 TH/MM3 (4.0-11.0) Red Blood Count 3.54 MIL/MM3 (4.00-5.30) Hemoglobin 9.3 GM/DL (11.6-15.3) Hematocrit 28.8 % (35.0-46.0) Mean Corpuscular Volume 81.3 FL (80.0-100.0) Mean Corpuscular Hemoglobin 26.3 PG (27.0-34.0) Mean Corpuscular Hemoglobin 32.3 % Concent (32.0-36.0) Red Cell Distribution Width 16.8 % (11.6-17.2) Platelet Count 383 TH/MM3 (150-450) Mean Platelet Volume 8.8 FL (7.0-11.0) Sodium Level 143 MEQ/L (136-145) Potassium Level 3.5 MEQ/L (3.5-5.1) Chloride Level 109 MEQ/L (98-107) Carbon Dioxide Level 26.3 MEQ/L (21.0-32.0) Anion Gap 8 MEQ/L (5-15) Blood Urea Nitrogen 6 MG/DL (7-18) Creatinine 0.46 MG/DL (0.50-1.00) Estimat Glomerular Filtration 171 ML/MIN Rate (>89) Random Glucose 84 MG/DL (74-106) Calcium Level 8.4 MG/DL (8.5-10.1) Phosphorus Level 2.2 MG/DL (2.5-4.9) Magnesium Level 2.1 MG/DL (1.5-2.5) . Result Diagram: 06/30/1630906/30/16309 Microbiology Microbiology Date/Time Procedure Status Source Growth 06/29/16 23:00 Stool Occult Blood ([facility]) - Final Complete Stool Stool HEMOCCULT NEGATIVE . Imaging Last Impressions Chest X-Ray 06/27/16 0000 Signed Impressions: Service Date/Time: Monday, June 27, 2016 11:11 - CONCLUSION: Persistent airspace opacity at the right lung base. No pneumothorax is visualized. Reginaldo Potts MD Abdomen X-Ray 06/26/16 0000 Signed Impressions: Service Date/Time: June 13:08 - CONCLUSION: 1. Nasogastric tube in good position. Benign-appearing bowel gas pattern. Jd Underwood MD Abdomen/Pelvis CT 06/17/16 0000 Signed Impressions: Service Date/Time: Friday, June 17, 2016 04:12 - CONCLUSION: 1. New bibasilar atelectasis. 2. There is some mild dilatation of the small bowel. There is a mild to moderate distention of the colon down to the rectum suggestive of a diffuse adynamic ileus. No definite mechanical obstruction is seen. 3. Otherwise, no other significant changes compared to the prior study. Andi Luna MD Brain MRI 06/15/16 0000 Signed Impressions: Service Date/Time: Wednesday, June 15, 2016 09:10 - CONCLUSION: No acute abnormality seen. 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 Reginaldo Cain MD Head Magnetic Resonance Angiography 06/14/16 0000 Signed Impressions: Service Date/Time: Tuesday, June 14, 2016 18:23 - CONCLUSION: No evidence of vessel truncation or aneurysm. Simone Graham MD Liver Ultrasound 06/13/16 0000 Signed Impressions: Service Date/Time: Monday, June 13, 2016 09:42 - CONCLUSION: 1. Small amount free fluid identified medial to the lower pole of the right kidney. 2. Slight increased hepatic echotexture suggesting some degree of fatty infiltration. 3. Please note the body and tail of the pancreas are obscured by overlying bowel gas. The head neck and uncinate process are sonographically intact. Mauro Leslie MD Head CT 06/12/16 1657 Signed Impressions: Service Date/Time: May 21:37 - CONCLUSION: Unremarkable study. Jose Martinez MD Renal Ultrasound 06/12/16 0000 Signed Impressions: Service Date/Time: May 23:51 - CONCLUSION: 1. Mild pelvocaliectasis on the right. No hydronephrosis involving either kidney. Simone Woody Jr., MD Chest CT 06/12/16 0000 Signed Impressions: Service Date/Time: May 21:39 - CONCLUSION: Right upper lobe parenchymal process may represent pneumonia, however follow up is suggested with repeat noncontrast chest CT in 2-4 weeksafter appropriate clinical therapy. Jose Martinez MD . Procedures INTUBATION 06/12/16 EXTUBATION 06/25/16 PEG TUBE 06/27/16 Bronchoscopy /BAL . . Assessment and Plan Disease Oriented Problem List: (1) respiratory failure (2) UTI/sepsis (3) history of ischemic strokes 2010, with right hemiplegia (4) Seizure Comment: Possible seizure seen on EEG. Started on levitiracetam by neurologist. . (5) encephalopathy, acute and chronic (6) hypertension (7) anemia Comment: appears to be from blood loss but unkown site. Hemoccult was negative. EGD showed gastritis but no active bleeding. . (8) Hypoalbuminemia (9) elevated LFTs, improving (10) hypernatremia, resolved (11) acute kidney injury, resolved Symptom Scale: (1) dyspnea Comment: Dyspnea currently being addressed with mechanical ventilation. . (2) encephalopathy 0-10 Scale: Unable to quantify Comment: Unable to follow commands. . Pertinent Non-Medical Issues Psychosocial: for 13 years, 2 daughters including a 12-year-old from previous relationships, worked as an [employer] for many years. Spiritual: Spirituality has been very important for the patient, and the patient 's does believe that she would appreciate refund specialist visits. Legal: The patient lacks capacity for decision making, and it is very unlikely that she will regain that capacity. Her is the healthcare proxy decision-maker, as there is no reported health care surrogacy form. Ethical issues impacting care: Important Contacts : Josiah Velazquez [phone] NOTE: The patient's wants to be the primary point of contact, as he does not want the patient's older daughter trying to make decisions about the patient's care. . Prognosis The patient's prognosis is quite poor. She was already a debilitated bedbound hemiplegic post stroke patient, at risk for infections and other complications, and now she is more debilitated and with respiratory failure and significant encephalopathy. She will be appropriate for hospice services if/when the patient's decides to transition to comfort care. . Code Status: Full Code Plan ==FULL CODE, confirmed by patient's 06/24/16==GOALS: The patient's reports he wants "everything possible done to save my 's life." He continues to desire re-intubation, ongoing blood transfusions as needed, and has stated he is in favor of tracheostomy if needed. He is aware that "there will come a time when everything is worse and she won't get better" and he may want to "let her go naturally then." He does not see her near this point now, however. ==DECISION-MAKING: The patient lacks capacity for decision making, and it is very unlikely that she will regain that capacity. Her is the healthcare proxy decision-maker, as there is no reported health care surrogacy form. ==NOTE: The patient's wants to be the primary point of contact, as he does not want the patient's older daughter (Natasha) trying to make decisions about the patient's care. == Dyspnea: CXR still showing pneumonia. Mucous plug and thick secretions seen on bronchoscopy. Failed extubation -- will probably require tracheostomy. No further recommendations at this time. == Pain: Has not appeared painful to staff. Not requiring analgesics at this time. No further recommendations at this time. == Restlessness / agitation: Now controlled. == Disposition: Will probably need LTAC or SNF if she survives the hospitalization. Discharge venue will depend in large part on respiratory status. If she required tracheostomy and is not weaned. LTAC will likely be necessary. == Palliative care will continue to work with , update him on the patient's medical condition, and continue to discuss goals of medical treatment as the clinical course evolves. . . Attestation To help prompt me to consider important information that might be impacting today's encounter and assessment, information from prior notes written by myself or my colleagues may have been "brought forward" into today's note. My signature on this note, however, is an attestation that I personally performed the exam, history, and/or decision-making noted today, and, unless otherwise indicated, the interactions with patient, family, and staff as well as the review of records all occurred today. I also attest that the listed assessment and stated plan reflect my best clinical judgment today based on the combination of historical information, prior notes, and today's exam/ interactions. When time spent is documented, it refers only to time spent today by the signer, or if indicated, combined time spent today by collaborating physician/nurse practitioner. . Carson Venegas MD June 30, 2016 11:18
--- NOTE | 2016-06-30 14:16 | HHI.IDPN ---
Subjective Subjective Remarks remains reintubated blood, BAL and endotracheal clx are negative to date Afebrile WBC down to normal Antibiotics nicaalphonseilir scott Past Medical History Reviewed Allergies: Coded Allergies: DO NOT USE (Verified Allergy, Mild, Hallucinations, 06/12/16) Objective . Vital Signs Date Time Temp Pulse Resp B/P Pulse Ox O2 Delivery O2 Flow Rate FiO2 06/30/16 12:00 98.4 104 22 102/58 97 06/30/16 12:00 35 06/30/16 12:00 102 06/30/16 11:50 100 35 06/30/16 10:00 102 06/30/16 09:40 12 06/30/16 08:00 98.5 75 20 145/87 96 06/30/16 08:00 102 06/30/16 08:00 35 06/30/16 06:00 97 06/30/16 04:00 103 06/30/16 04:00 98.6 103 16 157/90 100 06/30/16 04:00 35 06/30/16 03:48 97 35 06/30/16 02:00 102 06/30/16 01:21 99 35 06/30/16 00:00 98.9 89 16 138/81 100 06/30/16 00:00 35 06/30/16 00:00 89 06/29/16 22:00 95 06/29/16 20:16 99 35 06/29/16 20:00 99.1 103 20 153/97 98 06/29/16 20:00 103 06/29/16 20:00 35 06/29/16 17:42 100 35 06/29/16 16:00 98.6 99 16 142/81 100 06/29/16 16:00 35 06/29/16 06/29/16 06/30/16 15:00 23:00 07:00 Intake Total 1580 ml 532 ml Output Total 600 ml 1000 ml 500 ml Balance -600 ml 580 ml 32 ml IV Total 953 ml 106 ml Tube Feeding 477 ml 276 ml Tube Irrigant 150 ml 150 ml Output Urine Total 600 ml 1000 ml 500 ml # Bowel Movements 3 1 1 . Laboratory Tests Test 06/28/16 06/29/16 06/30/16 21:15 05:35 03:10 White Blood Count 7.4 TH/MM3 9.3 TH/MM3 7.9 TH/MM3 Red Blood Count 2.61 MIL/MM3 3.68 MIL/MM3 3.54 MIL/MM3 Hemoglobin 6.9 GM/DL 9.7 GM/DL 9.3 GM/DL Hematocrit 21.0 % 29.5 % 28.8 % Mean Corpuscular Volume 80.4 FL 80.2 FL 81.3 FL Mean Corpuscular Hemoglobin 26.4 PG 26.3 PG 26.3 PG Mean Corpuscular Hemoglobin 32.8 % 32.8 % 32.3 % Concent Red Cell Distribution Width 16.7 % 16.0 % 16.8 % Platelet Count 374 TH/MM3 360 TH/MM3 383 TH/MM3 Mean Platelet Volume 8.9 FL 8.5 FL 8.8 FL Laboratory Tests Test 06/29/16 06/30/16 05:35 03:10 Sodium Level 142 MEQ/L 143 MEQ/L Potassium Level 3.1 MEQ/L 3.5 MEQ/L Chloride Level 108 MEQ/L 109 MEQ/L Carbon Dioxide Level 24.5 MEQ/L 26.3 MEQ/L Anion Gap 10 MEQ/L 8 MEQ/L Blood Urea Nitrogen 6 MG/DL 6 MG/DL Creatinine 0.48 MG/DL 0.46 MG/DL Estimat Glomerular Filtration 162 ML/MIN 171 ML/MIN Rate Random Glucose 93 MG/DL 84 MG/DL Calcium Level 8.4 MG/DL 8.4 MG/DL Phosphorus Level 2.9 MG/DL 2.2 MG/DL Magnesium Level 2.1 MG/DL 2.1 MG/DL Microbiology Date/Time Procedure Status Source Growth 06/29/16 23:00 Stool Occult Blood ([facility]) - Final Complete Stool Stool HEMOCCULT NEGATIVE Imaging Last Impressions Chest X-Ray 06/27/16 0000 Signed Impressions: Service Date/Time: Monday, June 27, 2016 11:11 - CONCLUSION: Persistent airspace opacity at the right lung base. No pneumothorax is visualized. Reginaldo Potts MD Abdomen X-Ray 06/26/16 0000 Signed Impressions: Service Date/Time: June 13:08 - CONCLUSION: 1. Nasogastric tube in good position. Benign-appearing bowel gas pattern. Jd Underwood MD Abdomen/Pelvis CT 06/17/16 0000 Signed Impressions: Service Date/Time: Friday, June 17, 2016 04:12 - CONCLUSION: 1. New bibasilar atelectasis. 2. There is some mild dilatation of the small bowel. There is a mild to moderate distention of the colon down to the rectum suggestive of a diffuse adynamic ileus. No definite mechanical obstruction is seen. 3. Otherwise, no other significant changes compared to the prior study. Andi Luna MD Brain MRI 06/15/16 Signed Impressions: Service Date/Time: Wednesday, June 15, 2016 09:10 - CONCLUSION: No acute abnormality seen. 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 Reginaldo Cain MD Head Magnetic Resonance Angiography 06/14/16 Signed Impressions: Service Date/Time: Tuesday, June 14, 2016 18:23 - CONCLUSION: No evidence of vessel truncation or aneurysm. Simone Graham MD Liver Ultrasound 06/13/16 Signed Impressions: Service Date/Time: Monday, June 13, 2016 09:42 - CONCLUSION: 1. Small amount free fluid identified medial to the lower pole of the right kidney. 2. Slight increased hepatic echotexture suggesting some degree of fatty infiltration. 3. Please note the body and tail of the pancreas are obscured by overlying bowel gas. The head neck and uncinate process are sonographically intact. Mauro Leslie MD Head CT 06/12/[id number] Signed Impressions: Service Date/Time: May 21:37 - CONCLUSION: Unremarkable study. Jose Martinez MD Renal Ultrasound 06/12/16 Signed Impressions: Service Date/Time: May 23:51 - CONCLUSION: 1. Mild pelvocaliectasis on the right. No hydronephrosis involving either kidney. Simone Woody Jr., MD Chest CT 06/12/16 Signed Impressions: Service Date/Time: May 21:39 - CONCLUSION: Right upper lobe parenchymal process may represent pneumonia, however follow up is suggested with repeat noncontrast chest CT in 2-4 weeksafter appropriate clinical therapy. Jose Martinez MD Physical Exam GENERAL: on vent, awake, NAD SKIN: No jaundice, rashes, or lesions. Cool and dry HEYES: Pupils equal and round and reactive. No scleral icterus. No injection or drainage. ENT: Nose without bleeding or purulent drainage. NCARDIOVASCULAR: Regular rate and rhythm without murmurs, gallops, or rubs. No JVD. Peripheral pulses symmetric. RESPIRATORY/CHEST: Bilateral diffuse coarse rhonchi GASTROINTESTINAL: Abdomen soft, no reaction to palpation, not distended. No guarding. Bowel sounds present. Incontinent of liquid brown stool GENITOURINARY: Cortes catheter in place with clear yellow urine MUSCULOSKELETAL: Extremities without clubbing, cyanosis, no significant edema. NEUROLOGICAL: awake alert, tracks LINE no evidence of infection : Cortes in place urine looks clear Assessment & Plan Remarks Sepsis (fever, hypoxi, leukocytosis, lactic acidosis, multi organ function) - ? source not clear, has E coli in UC but her UA is unremarkable - CT with RUL infiltrate, ?PNA - growing Staph aureus, MSSA Lymphocytic pleocytosis in CSF - C/S negative - VRDF negative, RPR neg - all clx are negative ARF/CKD, creatinine now normal Respiratory failure, new - re-intubated ? mucus plugs Leukocytosis, resolved ? reactive No e/o active infx Diarrhea, no e/o C.diff sp tx of UTI, E.coli PLAN dc zosyn, vanco fu blood clx untill finale monitor for signs of new infx dw Briseida Chavez MD June 30, 2016 14:16
[2016-06-30] MEDS ORDERED: PHARMACY ORDERED LAB ONE (14:45)
--- NOTE | 2016-06-30 18:54 | HHI.CCPN ---
Subjective Remarks/Hospital Course 56-year-old female brought in by EMS emergently as altered mental status, hypoxia and temperature 104. Patient has a history of CVA many years ago. Per caregiver she didn't feel well since yesterday and wasn't taking any of medications including baclofen. Patient was unable to communicate due to her altered mental status. As per EMS not much history was available from the family but she has history of CVA as baseline but communicates. In the emergency department patient's oxygen saturation was low 70s upon EMS arrival. They had her on oxygen via nonrebreather and sats of 93%. GCS was 6 and she was intubated by ER attending for an airway protection. 06/13 Patient is sedated with Versed and on Bicarb drip. Renal function is improving with Cr: 2.12 from 3.19 UO: 1350ml since yesterday. Afebrile. 06/14 Patient remains sedated and intubated. Afebrile. Renal function continue to improve with Cr: 1.18 today from 1.53. 06/15 No acute events overnight. Off sedation remains intubated. Patient tolerated CPAP all day yesterday. MRA brain last night is unremarkable. T:99.9 06/16 Patient remains intubated off sedation. Afebrile. Tolerated CPAP all day yesterday remains encephalopathic. 06/17 No acute events overnight. Patient is able to open her eyes but does not follow commands. T: 100.1 last night. 06/18: Remains encephalopathic, orally intubated on mechanical ventilation. 06/19: Remains encephalopathic, orally intubated on mechanical ventilation. Daily C Pap trials ongoing. 06/20: Remains encephalopathic, orally intubated on mechanical ventilation. Daily C Pap trials. Tube feeds resumed. 06/21: More awake however not following commands. Remains orally intubated on mechanical ventilation. Tolerating tube feeds. Daily C Pap trials ongoing. 06/22: Encephalopathic though more awake, arousable. Not following commands. Remains orally intubated on mechanical ventilation. Tolerating tube feeds. Daily C Pap trials. 06/23: Awake, not following commands. Remains orally intubated on mechanical ventilation. Failing C Pap trials. Tolerating tube feeds. 06/24: Opening eyes, blinks on command. Remains orally intubated on mechanical ventilation. Tolerating tube feeds. Gets tachypneic with low volumes on dropping pressure-support at C Pap trials. We'll initiate diuresis as patient isn't significantly positive fluid balance since admission due to fluids administered for sepsis which now appears to be under control. 06/25: Awake, appears to focus. Extubated today following C Pap trial. Continue diuresis. 06/26: [facility] reconsult note. Patient was extubated yesterday 06/25 and apparently was doing well initially. Overnight was placed on a 100% percent nonrebreather. I was called to the bedside emergently by Denny PATINO, today around 12.30 pm, patient was more unresponsive and hypoxemic on 100% nonrebreather. On my evaluation patient's eyes were open but nonresponsive, shallow breathing. Oxygen saturation 80% on 100 percent nonrebreather. Emergently intubated and placed on mechanical ventilation. Moderate amount of white secretions at glottic opening. CXR shows RLL infiltrate with volume loss? aspiration. Sputum cx. Discuss with ID Dr. Ortiz, will place on broad-spectrum antibiotics with Zosyn 06/27: Tmax 99.6 The patient was emergently reintubated yesterday, overnight no increasing ventilatory requirements were noted. The patient underwent a bronchoscopy with BAL this a.m., cultures were sent. Plan for PEG placement today. 06/28: Tmax 98.4 The patient underwent PEG placement yesterday, will resume tube feedings today. Mucomyst was initiated yesterday status post bronchial noted mucous plugs, with thick tenacious secretions. Will tentatively plan for tracheostomy next week, if unable to wean, and increasing ventilatory requirements. 06/29: She was noted to have a drop in hemoglobin last night, and received 2 units of packed red blood cells. Hemoccult has been ordered stat CBC to be followed up. No obvious signs of bleeding noted. 06/30: Hgb stable. No change in neuro status. will attempt CPAP trials. Palliative medicine, Dr. Venegas to schedule goals of care now with reintubation. Objective Vital Signs Date Time Temp Pulse Resp B/P Pulse Ox O2 Delivery O2 Flow Rate FiO2 06/30/16 17:17 100 35 06/30/16 16:00 102 06/30/16 12:00 98.4 22 102/58 06/27/16 00:15 Mechanical Ventilator 06/26/16 08:00 13.00 Intake and Output 06/29/16 06/29/16 06/30/16 08:00 16:00 00:00 Intake Total 1226 ml 1580 ml Output Total 525 ml 600 ml 1000 ml Balance 701 ml -600 ml 580 ml Result Diagram: 06/30/16 0310 06/30/16 0310 Other Results Microbiology Date/Time Procedure Status Source Growth 06/29/16 23:00 Stool Occult Blood (CARE[facility]) - Final Complete Stool Stool HEMOCCULT NEGATIVE Imaging Last Impressions Chest X-Ray 06/27/16 0000 Signed Impressions: Service Date/Time: Monday, June 27, 2016 11:11 - CONCLUSION: Persistent airspace opacity at the right lung base. No pneumothorax is visualized. Reginaldo Potts MD Abdomen X-Ray 06/26/16 0000 Signed Impressions: Service Date/Time: June 13:08 - CONCLUSION: 1. Nasogastric tube in good position. Benign-appearing bowel gas pattern. Jd Underwood MD Abdomen/Pelvis CT 06/17/16 0000 Signed Impressions: Service Date/Time: Friday, June 17, 2016 04:12 - CONCLUSION: 1. New bibasilar atelectasis. 2. There is some mild dilatation of the small bowel. There is a mild to moderate distention of the colon down to the rectum suggestive of a diffuse adynamic ileus. No definite mechanical obstruction is seen. 3. Otherwise, no other significant changes compared to the prior study. Andi Luna MD Brain MRI 06/15/16 0000 Signed Impressions: Service Date/Time: Wednesday, June 15, 2016 09:10 - CONCLUSION: No acute abnormality seen. 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 Reginaldo Cain MD Head Magnetic Resonance Angiography 06/14/16 0000 Signed Impressions: Service Date/Time: Tuesday, June 14, 2016 18:23 - CONCLUSION: No evidence of vessel truncation or aneurysm. Simone Graham MD Liver Ultrasound 06/13/16 0000 Signed Impressions: Service Date/Time: Monday, June 13, 2016 09:42 - CONCLUSION: 1. Small amount free fluid identified medial to the lower pole of the right kidney. 2. Slight increased hepatic echotexture suggesting some degree of fatty infiltration. 3. Please note the body and tail of the pancreas are obscured by overlying bowel gas. The head neck and uncinate process are sonographically intact. Mauro Leslie MD Head CT [id number]/12/[id number] Signed Impressions: Service Date/Time: May 21:37 - CONCLUSION: Unremarkable study. Jose Martinez MD Renal Ultrasound 06/12/16 Signed Impressions: Service Date/Time: May 23:51 - CONCLUSION: 1. Mild pelvocaliectasis on the right. No hydronephrosis involving either kidney. Simone Woody Jr., MD Chest CT 06/12/16 Signed Impressions: Service Date/Time: May 21:39 - CONCLUSION: Right upper lobe parenchymal process may represent pneumonia, however follow up is suggested with repeat noncontrast chest CT in 2-4 weeksafter appropriate clinical therapy. Jose Martinez MD Last Impressions Abdomen/Pelvis CT 06/17/16 Signed Impressions: Service Date/Time: Friday, June 17, 2016 04:12 - CONCLUSION: 1. New bibasilar atelectasis. 2. There is some mild dilatation of the small bowel. There is a mild to moderate distention of the colon down to the rectum suggestive of a diffuse adynamic ileus. No definite mechanical obstruction is seen. 3. Otherwise, no other significant changes compared to the prior study. Andi Luna MD Chest X-Ray 06/16/16 Signed Impressions: Service Date/Time: Thursday, June 16, 2016 04:51 - CONCLUSION: Right basilar density likely atelectasis.. Chadd Kahn MD Abdomen X-Ray 06/16/16 Signed Impressions: Service Date/Time: Thursday, June 16, 2016 17:15 - CONCLUSION: 1. Nonspecific bowel gas pattern which may represent a mild ileus or gastroenteritis. Rico Pedraza MD Brain MRI 06/15/16 Signed Impressions: Service Date/Time: Wednesday, June 15, 2016 09:10 - CONCLUSION: No acute abnormality seen. 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 Reginaldo Cain MD Head Magnetic Resonance Angiography 06/14/16 0000 Signed Impressions: Service Date/Time: Tuesday, June 14, 2016 18:23 - CONCLUSION: No evidence of vessel truncation or aneurysm. Simone Graham MD Liver Ultrasound 06/13/16 Signed Impressions: Service Date/Time: Monday, June 13, 2016 09:42 - CONCLUSION: 1. Small amount free fluid identified medial to the lower pole of the right kidney. 2. Slight increased hepatic echotexture suggesting some degree of fatty infiltration. 3. Please note the body and tail of the pancreas are obscured by overlying bowel gas. The head neck and uncinate process are sonographically intact. Mauro Leslie MD Head CT [id number]/12/[id number] Signed Impressions: Service Date/Time: May 21:37 - CONCLUSION: Unremarkable study. Jose Martinez MD Renal Ultrasound 06/12/16 Signed Impressions: Service Date/Time: May 23:51 - CONCLUSION: 1. Mild pelvocaliectasis on the right. No hydronephrosis involving either kidney. Simone Woody Jr., MD Chest CT 06/12/16 Signed Impressions: Service Date/Time: May 21:39 - CONCLUSION: Right upper lobe parenchymal process may represent pneumonia, however follow up is suggested with repeat noncontrast chest CT in 2-4 weeksafter appropriate clinical therapy. Jose Martinez MD Objective Remarks BP 145/87 P105 O2 Saturation 100% GENERAL: Elderly woman unresponsive, intubated and sedated SKIN: Warm and dry. HEAD: Normocephalic. EYES: Pallor present, No scleral icterus. No injection or drainage. NECK: Supple, trachea midline. Orotracheally intubated CARDIOVASCULAR: Tachycardic rate and rhythm without murmurs, gallops, or rubs. RESPIRATORY: Mechanical ventilation Breath sounds diminished B/L bases. GASTROINTESTINAL: Abdomen soft, non-tender, nondistended. Noted PEG in situ, no erythema or drainage . MUSCULOSKELETAL: No cyanosis, or edema. EXTREMITIES: No clubbing cyanosis or edema NEURO: Eyes are open, but patient is unresponsive, no response to sternal rub. A/P Assessment and Plan ASSESSMENT: Acute hypoxemic respiratory failure Probable aspiration/HCAP with R volume loss Encephalopathy SIRS/sepsis UTI Staph aureus pneumonia Acute kidney injury Rhabdo Hypernatremia Hypokalemia Anemia Lactic acidemia Leukocytosis- resolved Elevated LFT PLAN: Neuro: Emergently intubated today 06/26/16. Placed on propofol for sedation for ventilator synchrony CT brain: No acute findings. UDS+ +Benzos MRA brain 06/14- Unremarkable. s/p LP showed clear CSF and 15 WBC. EEG: Bihemispheric slowing, small sharp waves b/l Neuro is following- Dr. Boggs, On Keppra 500mg Q12 Pulm: Emergently intubated and placed on mechanical ventilation for acute hypoxemic respiratory failure on 06/26/16 Extubated 06/25, progressive hypoxia, on NRB prior to intubation. CXR RLL infiltrate with some volume loss Broad-spectrum antibiotics to cover for aspiration (Zosyn). Check sputum Bronchodilators, ICU vent bundle. Thick tenacious secretions noted on bronchoscopy, Mucomyst added to medication regimen 3 days 06/27-Bronchoscopy with BAL cultures sent Tentative plan for tracheostomy secondary to prolonged mechanical ventilation, and failure to wean.Will await discussion regarding goals of care. CV: Monitor HR and BP keep MAP>65mmHg. Initiated diuresis with Lasix on 06/24 to mobilize fluid. : Monitor renal function, I/O's, avoid nephrotoxins. Electrolytes replacement per protocol. Renal US: No hydronephrosis. Renal is following- Dr. Corral GI/liver: On Pepcid 20meq IV qhs, tube feeds with Glucerna in 24 hours Monitor LFT's ( trending down), US liver: Fatty liver. Elevated urinary copper - GI is following. CT abdomen/pelvis 06/17- findings suggestive of adynamic ileus. No mechanical obstruction. On Reglan 5mg Iv q8 PRN, Miralax, Lactulose 06/27 PEG placement ID: Had been off all antibiotics. 06/26 Placed on IV Zosyn, Vanc due Acute respiratory decompensation and intubation, probable aspiration (Initial Abx switched from Zyvox,Zosyn to Rocephin on 06/19, had been off all ABX ) Pertinent cultures: 06/12 Urine cx: E.coli 06/12 BC: No growth 06/12 CSG: NGTD 06/15 urine: E coli, sputum: MSSA 06/26: Blood sputum and urine cultures sent pending Heme: Thrombocytopenia-resolved Anemia Monitor CBC, coags Hep plt ab negative. 06/28-Transfused 2 units of PRBCs Endo: SSI for glycemic control, TSH level: 2.5 GI Prophylaxis with Pepcid DVT prophylaxis with SCD, not on chemical DVT prophylaxis 2nd to thrombocytopenia Palliative care Dr. Venegas, following to assist with deciding goals of therapy. Patient's wishes to continue full CODE STATUS at this time. This patient remains critically ill with one or more organ systems which are or may become a threat to life. I have spent in excess of 32 minutes discontinuously in the care and management of this patient. This time is exclusive of procedures, and includes, but is not limited to, evaluation of the patient, review of the medical record, discussions with family, consultants, nursing staff, or respiratory therapy, and documentation in the medical record. Physician Stacy Reeves MD June 30, 2016 18:54
[2016-06-30] MEDS: FAMOTIDINE 20 MG/2 ML VIAL IV PUSH SCH (22:08)
[2016-07-01] VITALS (20 sets, daily range): BP systolic 131–154; BP diastolic 83–90; PULSE 98–125; RESP 16–20; TEMP 99–99.3; O2SAT 96–100
[2016-07-01] MEDS: CHLORHEXIDINE GLUCONATE 2 % 1 PACK (2 CLOTHS) TOP SCH (04:00)
[2016-07-01 06:19] LABS: HEMATOCRIT 30.9 % (35.0-46.0); MEAN CELL VOLUME 81.3 FL (80.0-100.0); MEAN CORPUSCULAR HEMOGLOBIN 26.7 PG (27.0-34.0); MEAN CORPUSCULAR HGB CONC 32.8 % (32.0-36.0); PLATELET COUNT 400 TH/MM3 (150-450); RED CELL DISTRIBUTION WIDTH 17.1 % (11.6-17.2); REVIEW FLAG FINAL; WHITE BLOOD COUNT 8.5 TH/MM3 (4.0-11.0)
[2016-07-01] MEDS: CHLORHEXIDINE 0.12% (ORAL KIT) 15 ML CUP MT SCH ×2 (08:00→22:40)
[2016-07-01] MEDS: PREGABALIN 75 MG CAP PO SCH ×2 (09:00→22:40)
[2016-07-01] MEDS: LACTULOSE SYRUP 20 GM/30 ML CUP PO SCH ×2 (09:00→21:00)
[2016-07-01] MEDS: METOPROLOL TARTRATE 25 MG TAB PO SCH ×2 (09:00→22:40)
[2016-07-01] MEDS: levETIRAcetam INJ 500 MG in SODIUM CHLORIDE 0.9% INJ 100 ML IV SCH ×2 (09:00→22:40)
[2016-07-01] MEDS: POLYETHYLENE GLYCOL 17 GM PKG PO SCH (09:00)
[2016-07-01] MEDS: BACLOFEN 10 MG TAB PO SCH ×3 (09:00→18:00)
--- NOTE | 2016-07-01 15:05 | HHI.CCPN ---
Subjective Remarks/Hospital Course 56-year-old female brought in by EMS emergently as altered mental status, hypoxia and temperature 104. Patient has a history of CVA many years ago. Per caregiver she didn't feel well since yesterday and wasn't taking any of medications including baclofen. Patient was unable to communicate due to her altered mental status. As per EMS not much history was available from the family but she has history of CVA as baseline but communicates. In the emergency department patient's oxygen saturation was low 70s upon EMS arrival. They had her on oxygen via nonrebreather and sats of 93%. GCS was 6 and she was intubated by ER attending for an airway protection. 06/13 Patient is sedated with Versed and on Bicarb drip. Renal function is improving with Cr: 2.12 from 3.19 UO: 1350ml since yesterday. Afebrile. 06/14 Patient remains sedated and intubated. Afebrile. Renal function continue to improve with Cr: 1.18 today from 1.53. 06/15 No acute events overnight. Off sedation remains intubated. Patient tolerated CPAP all day yesterday. MRA brain last night is unremarkable. T:99.9 06/16 Patient remains intubated off sedation. Afebrile. Tolerated CPAP all day yesterday remains encephalopathic. 06/17 No acute events overnight. Patient is able to open her eyes but does not follow commands. T: 100.1 last night. 06/18: Remains encephalopathic, orally intubated on mechanical ventilation. 06/19: Remains encephalopathic, orally intubated on mechanical ventilation. Daily C Pap trials ongoing. 06/20: Remains encephalopathic, orally intubated on mechanical ventilation. Daily C Pap trials. Tube feeds resumed. 06/21: More awake however not following commands. Remains orally intubated on mechanical ventilation. Tolerating tube feeds. Daily C Pap trials ongoing. 06/22: Encephalopathic though more awake, arousable. Not following commands. Remains orally intubated on mechanical ventilation. Tolerating tube feeds. Daily C Pap trials. 06/23: Awake, not following commands. Remains orally intubated on mechanical ventilation. Failing C Pap trials. Tolerating tube feeds. 06/24: Opening eyes, blinks on command. Remains orally intubated on mechanical ventilation. Tolerating tube feeds. Gets tachypneic with low volumes on dropping pressure-support at C Pap trials. We'll initiate diuresis as patient isn't significantly positive fluid balance since admission due to fluids administered for sepsis which now appears to be under control. 06/25: Awake, appears to focus. Extubated today following C Pap trial. Continue diuresis. 06/26: CCM reconsult note. Patient was extubated yesterday 06/25 and apparently was doing well initially. Overnight was placed on a 100% percent nonrebreather. I was called to the bedside emergently by Denny PATINO, today around 12.30 pm, patient was more unresponsive and hypoxemic on 100% nonrebreather. On my evaluation patient's eyes were open but nonresponsive, shallow breathing. Oxygen saturation 80% on 100 percent nonrebreather. Emergently intubated and placed on mechanical ventilation. Moderate amount of white secretions at glottic opening. CXR shows RLL infiltrate with volume loss? aspiration. Sputum cx. Discuss with ID Dr. Ortiz, will place on broad-spectrum antibiotics with Zosyn 06/27: Tmax 99.6 The patient was emergently reintubated yesterday, overnight no increasing ventilatory requirements were noted. The patient underwent a bronchoscopy with BAL this a.m., cultures were sent. Plan for PEG placement today. 06/28: Tmax 98.4 The patient underwent PEG placement yesterday, will resume tube feedings today. Mucomyst was initiated yesterday status post bronchial noted mucous plugs, with thick tenacious secretions. Will tentatively plan for tracheostomy next week, if unable to wean, and increasing ventilatory requirements. 06/29: She was noted to have a drop in hemoglobin last night, and received 2 units of packed red blood cells. Hemoccult has been ordered stat CBC to be followed up. No obvious signs of bleeding noted. 06/30: Hgb stable. No change in neuro status. will attempt CPAP trials. Palliative medicine, Dr. Venegas to schedule goals of care now with reintubation. 07/01: Remains encephalopathic. Hemoglobin stable at 10.0. No acute changes overnight. Discussion with palliative care team and , he would like aggressive measures/treatments to continue to include tracheostomy. General surgery has been consulted. Objective Vital Signs Date Time Temp Pulse Resp B/P Pulse Ox O2 Delivery O2 Flow Rate FiO2 07/01/16 14:00 106 16 135/83 99 07/01/16 12:00 99.0 07/01/16 12:00 35 Intake and Output 06/30/16 06/30/16 06/30/16 07:59 15:59 23:59 Intake Total 532 ml 752 ml 565 ml Output Total 500 ml 900 ml 350 ml Balance 32 ml -148 ml 215 ml Result Diagram: 07/01/16 0525 06/30/16 0310 Other Results Microbiology Date/Time Procedure Status Source Growth 06/29/16 23:00 Stool Occult Blood ([facility]) - Final Complete Stool Stool HEMOCCULT NEGATIVE Imaging Last Impressions Chest X-Ray 06/27/16 0000 Signed Impressions: Service Date/Time: Monday, June 27, 2016 11:11 - CONCLUSION: Persistent airspace opacity at the right lung base. No pneumothorax is visualized. Reginaldo Potts MD Abdomen X-Ray 06/26/16 0000 Signed Impressions: Service Date/Time: June 13:08 - CONCLUSION: 1. Nasogastric tube in good position. Benign-appearing bowel gas pattern. Jd Underwood MD Abdomen/Pelvis CT 06/17/16 0000 Signed Impressions: Service Date/Time: Friday, June 17, 2016 04:12 - CONCLUSION: 1. New bibasilar atelectasis. 2. There is some mild dilatation of the small bowel. There is a mild to moderate distention of the colon down to the rectum suggestive of a diffuse adynamic ileus. No definite mechanical obstruction is seen. 3. Otherwise, no other significant changes compared to the prior study. Andi Luna MD Brain MRI 06/15/16 0000 Signed Impressions: Service Date/Time: Wednesday, June 15, 2016 09:10 - CONCLUSION: No acute abnormality seen. 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 Reginaldo Cain MD Head Magnetic Resonance Angiography 06/14/16 0000 Signed Impressions: Service Date/Time: Tuesday, June 14, 2016 18:23 - CONCLUSION: No evidence of vessel truncation or aneurysm. Simone Graham MD Liver Ultrasound 06/13/16 0000 Signed Impressions: Service Date/Time: Monday, June 13, 2016 09:42 - CONCLUSION: 1. Small amount free fluid identified medial to the lower pole of the right kidney. 2. Slight increased hepatic echotexture suggesting some degree of fatty infiltration. 3. Please note the body and tail of the pancreas are obscured by overlying bowel gas. The head neck and uncinate process are sonographically intact. Mauro Leslie MD Head CT 06/12/16 1657 Signed Impressions: Service Date/Time: May 21:37 - CONCLUSION: Unremarkable study. Jose Martinez MD Renal Ultrasound 06/12/16 Signed Impressions: Service Date/Time: May 23:51 - CONCLUSION: 1. Mild pelvocaliectasis on the right. No hydronephrosis involving either kidney. Simone Woody Jr., MD Chest CT 06/12/16 Signed Impressions: Service Date/Time: May 21:39 - CONCLUSION: Right upper lobe parenchymal process may represent pneumonia, however follow up is suggested with repeat noncontrast chest CT in 2-4 weeksafter appropriate clinical therapy. Jose Martinez MD Last Impressions Abdomen/Pelvis CT 06/17/16 Signed Impressions: Service Date/Time: Friday, June 17, 2016 04:12 - CONCLUSION: 1. New bibasilar atelectasis. 2. There is some mild dilatation of the small bowel. There is a mild to moderate distention of the colon down to the rectum suggestive of a diffuse adynamic ileus. No definite mechanical obstruction is seen. 3. Otherwise, no other significant changes compared to the prior study. Andi Luna MD Chest X-Ray 06/16/16 Signed Impressions: Service Date/Time: Thursday, June 16, 2016 04:51 - CONCLUSION: Right basilar density likely atelectasis.. Chadd Kahn MD Abdomen X-Ray 06/16/16 Signed Impressions: Service Date/Time: Thursday, June 16, 2016 17:15 - CONCLUSION: 1. Nonspecific bowel gas pattern which may represent a mild ileus or gastroenteritis. Rico Pedraza MD Brain MRI 06/15/16 Signed Impressions: Service Date/Time: Wednesday, June 15, 2016 09:10 - CONCLUSION: No acute abnormality seen. 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 Reginaldo Cain MD Head Magnetic Resonance Angiography 06/14/16 0000 Signed Impressions: Service Date/Time: Tuesday, June 14, 2016 18:23 - CONCLUSION: No evidence of vessel truncation or aneurysm. Simone Graham MD Liver Ultrasound 06/13/16 0000 Signed Impressions: Service Date/Time: Monday, June 13, 2016 09:42 - CONCLUSION: 1. Small amount free fluid identified medial to the lower pole of the right kidney. 2. Slight increased hepatic echotexture suggesting some degree of fatty infiltration. 3. Please note the body and tail of the pancreas are obscured by overlying bowel gas. The head neck and uncinate process are sonographically intact. Mauro Leslie MD Head CT 06/12/16 1657 Signed Impressions: Service Date/Time: May 21:37 - CONCLUSION: Unremarkable study. Jose Martinez MD Renal Ultrasound 06/12/16 0000 Signed Impressions: Service Date/Time: May 23:51 - CONCLUSION: 1. Mild pelvocaliectasis on the right. No hydronephrosis involving either kidney. Simone Woody Jr., MD Chest CT 06/12/16 0000 Signed Impressions: Service Date/Time: May 21:39 - CONCLUSION: Right upper lobe parenchymal process may represent pneumonia, however follow up is suggested with repeat noncontrast chest CT in 2-4 weeksafter appropriate clinical therapy. Jose Martinez MD Objective Remarks BP 145/87 P105 O2 Saturation 100% GENERAL: Elderly woman unresponsive, intubated and sedated SKIN: Warm and dry. HEAD: Normocephalic. EYES: Pallor present, No scleral icterus. No injection or drainage. NECK: Supple, trachea midline. Orotracheally intubated CARDIOVASCULAR: Tachycardic rate and rhythm without murmurs, gallops, or rubs. RESPIRATORY: Mechanical ventilation Breath sounds diminished B/L bases. GASTROINTESTINAL: Abdomen soft, non-tender, nondistended. Noted PEG in situ, no erythema or drainage . MUSCULOSKELETAL: No cyanosis, or edema. EXTREMITIES: No clubbing cyanosis or edema NEURO: Eyes are open, but patient is unresponsive, no response to sternal rub. A/P Assessment and Plan ASSESSMENT: Acute hypoxemic respiratory failure Probable aspiration/HCAP with R volume loss Encephalopathy SIRS/sepsis UTI Staph aureus pneumonia Acute kidney injury Rhabdo Hypernatremia Hypokalemia Anemia Lactic acidemia Leukocytosis- resolved Elevated LFT PLAN: Neuro: Emergently intubated today 06/26/16. Placed on propofol for sedation for ventilator synchrony CT brain: No acute findings. UDS+ +Benzos MRA brain 06/14- Unremarkable. s/p LP showed clear CSF and 15 WBC. EEG: Bihemispheric slowing, small sharp waves b/l Neuro is following- Dr. Boggs, On Keppra 500mg Q12 Pulm: Emergently intubated and placed on mechanical ventilation for acute hypoxemic respiratory failure on 06/26/16 Extubated 06/25, progressive hypoxia, on NRB prior to intubation. CXR RLL infiltrate with some volume loss Broad-spectrum antibiotics to cover for aspiration (Zosyn). Bronchodilators, ICU vent bundle. Thick tenacious secretions noted on bronchoscopy, Mucomyst added to medication regimen 3 days 06/27-Bronchoscopy with BAL cultures sent Tentative plan for tracheostomy secondary to prolonged mechanical ventilation, and failure to wean 07/01 General surgery consulted for tracheostomy CV: Monitor HR and BP keep MAP>65mmHg. Initiated diuresis with Lasix on 06/24 to mobilize fluid. : Monitor renal function, I/O's, avoid nephrotoxins. Electrolytes replacement per protocol. Renal US: No hydronephrosis. Renal is following- Dr. Corral GI/liver: On Pepcid 20meq IV qhs, tube feeds with Glucerna in 24 hours Monitor LFT's ( trending down), US liver: Fatty liver. Elevated urinary copper - GI is following. CT abdomen/pelvis 06/17- findings suggestive of adynamic ileus. No mechanical obstruction. On Reglan 5mg Iv q8 PRN, Miralax, Lactulose 06/27 PEG placement ID: Had been off all antibiotics. 06/26 Placed on IV Zosyn, Vanc due Acute respiratory decompensation and intubation, probable aspiration (Initial Abx switched from Zyvox,Zosyn to Rocephin on 06/19, had been off all ABX ) Pertinent cultures: 06/12 Urine cx: E.coli 06/12 BC: No growth 06/12 CSG: NGTD 06/15 urine: E coli, sputum: MSSA 06/26: Blood sputum and urine cultures sent pending Heme: Thrombocytopenia-resolved Anemia Monitor CBC, and coags. Hgb 10.0 Hep plt ab negative. 06/28-Transfused 2 units of PRBCs Endo: SSI for glycemic control, TSH level: 2.5 GI Prophylaxis with Pepcid DVT prophylaxis with SCD's, not on chemical DVT prophylaxis 2nd to thrombocytopenia Palliative care Dr. Venegas, following to assist with deciding goals of therapy. Patient's wishes to continue full CODE STATUS at this time, and continued aggressive treatment/therapies. Dispo: Level 3 Attempted to telephone Mr Velazquez [phone] to update him on patient's medical status and plans for tracheostomy, unable to reach. I discussed with [employer] OPERATOR at bedside Physician Stacy Reeves MD July 01, 2016 15:05
--- NOTE | 2016-07-01 16:58 | HHI.HCPN ---
Reason for visit a. To assist with evaluation and management of symptoms including: Dyspnea , encephalopathy b. To assist medical decision maker(s) with: better understanding of current medical conditions; weighing benefits/burdens of medical treatment options; making medical treatment decisions. . Subjective/Interval History INTERVAL NOTE: Patient was successfully extubated on 06/25/16 but required emergency re- intubation on 06/26/16 when 02 sats were only 80% on 100% FI02. CXR at the time showed RLL infiltrate with volume loss. She underwent bronchoscopy with alveolar lavage on 06/27 which revealed thick secretions/mucous plugs. PEG tube was also placed on 06/27/16. In addition, Hg dropped from 8.3 on 06/26 to 6.9 on 06/28 and pt was transfused with 2 units of PRBCs. There was some gastrtitis on EGD at time of PEG insertion, but no other bleeding source has been noted. No significant change overnight. Patient remains intubated and mechanically ventilated in the MICU. She opens her eyes and tracks but does not follow commands. Nursing pain level scores at "0." Not receiving any opiate analgesics. As son has opted for full aggressive care, Dr. Medellin has consulted general surgery for tracheostomy. Tmax 99.3. Hemodynamically stable. remains mechanically ventilated on 35% FIO02. Bowels moving well. Urine output good. WBC 8.5. Hg 10.1 and stable x 3 days. Renal function good. No new imaging. No new culture results. . Family/friend interactions No family contact today. . Advance Directives Living Will: Completed, but not made available Health Care Surrogate: Completed, but not made available Advance Directive Specifics Date completed: A living will was shown to our palliative care social studies teacher -- Nicole Woody. Unfortunately, it did not have year/date on it and was missing appropriate witness signatures. It did show intent to designate her as the Health care surrogate. Without a year/date, it is difficult to know if the document was executed while the patient was fully capacitated or not. . Health Care Surrogate(s): A living will was shown to our palliative care social studies teacher -- Nicole Woody. Unfortunately, it did not have year/date on it and was missing appropriate witness signatures. It did show intent to designate her as the Health care surrogate. Without a year/date, it is difficult to know if the document was executed while the patient was fully capacitated or not. . Documented care wishes: A living will was shown to our palliative care social studies teacher -- Nicole Woody. Unfortunately, it did not have year/date on it and was missing appropriate witness signatures. It did show intent to designate her as the Health care surrogate. Without a year/date, it is difficult to know if the document was executed while the patient was fully capacitated or not. . . Objective Vital Signs Date Time Temp Pulse Resp B/P Pulse Ox O2 Delivery O2 Flow Rate FiO2 07/01/16 14:00 106 16 135/83 99 07/01/16 14:00 107 07/01/16 13:00 106 16 134/83 99 07/01/16 12:48 108 16 131/86 98 07/01/16 12:00 99.0 108 17 134/83 98 07/01/16 12:00 35 07/01/16 12:00 108 17 98 07/01/16 12:00 99.3 105 20 134/83 100 07/01/16 12:00 98 07/01/16 11:49 97 35 07/01/16 10:04 100 35 07/01/16 10:00 98 07/01/16 08:00 98 07/01/16 08:00 35 07/01/16 08:00 99.0 125 18 140/88 100 07/01/16 06:00 98 07/01/16 04:56 96 35 07/01/16 04:00 35 07/01/16 04:00 98 07/01/16 04:00 99.0 98 18 154/90 100 07/01/16 02:00 98 07/01/16 01:36 100 35 07/01/16 00:00 98 07/01/16 00:00 99.0 98 18 154/90 100 07/01/16 00:00 35 06/30/16 22:00 105 06/30/16 20:00 105 06/30/16 20:00 35 06/30/16 20:00 99.3 105 20 150/85 100 06/30/16 19:43 100 35 06/30/16 18:45 102 17 100 06/30/16 18:30 106 17 100 06/30/16 18:15 104 13 100 06/30/16 18:00 102 06/30/16 18:00 102 14 139/85 100 06/30/16 17:45 99 18 100 06/30/16 17:30 103 14 100 06/30/16 17:17 100 35 06/30/16 17:15 108 21 100 06/30/16 17:00 102 17 143/82 100 Intake & Output 07/01/16 07/01/16 07:00 19:00 Intake Total 823 ml 76 ml Output Total 1150 ml 425 ml Balance -327 ml -349 ml IV Total 180 ml 75 ml Tube Feeding 643 ml TPN/PPN 1 ml Output Urine Total 1150 ml 425 ml # Bowel Movements 1 . Physical Exam CONSTITUTIONAL/GENERAL: This is an adequately nourished patient, in no apparent distress. She is intubated and mechanically ventilated in an MICU bed. She awakens to voice/exam and tracks but does not follow commands or make any attempt to respond. TUBES/LINES/DRAINS: Cortes catheter, IV; orotracheal tube; PEG tube; right wrist splint; SCDs; PODUS boots. SKIN: No jaundice, rashes, or lesions. No wounds seen anteriorly. Skin temperature appropriate. Not diaphoretic. NECK: Trachea midline. CARDIOVASCULAR: Regular rhythm without murmurs, gallops, or rubs. No JVD. RESPIRATORY/CHEST: Symmetric, unlabored respirations. Faint ronchi bilaterally. GASTROINTESTINAL: Abdomen soft, non-tender, nondistended. No hepato-splenomegaly , or palpable masses. No guarding. Bowel sounds present. GENITOURINARY: Without palpable bladder distension. Cortes catheter in place. MUSCULOSKELETAL: Extremities without clubbing, cyanosis, or edema. No calf tenderness. No mottling. NEUROLOGICAL: Eyes are open, appears awake, but does not track and does not follow simple command. PSYCHIATRIC: No obvious anxiety, restlessness. Difficult to assess mood -- not communicating. . . Diagnostic Tests Laboratory Laboratory Tests Test 06/28/16 06/28/16 06/29/16 06/30/16 21:15 22:40 05:35 03:10 White Blood Count 7.4 TH/MM3 9.3 TH/MM3 7.9 TH/MM3 (4.0-11.0) (4.0-11.0) (4.0-11.0) Red Blood Count 2.61 MIL/MM3 3.68 MIL/MM3 3.54 MIL/MM3 (4.00-5.30) (4.00-5.30) (4.00-5.30) Hemoglobin 6.9 GM/DL 9.7 GM/DL 9.3 GM/DL (11.6-15.3) (11.6-15.3) (11.6-15.3) Hematocrit 21.0 % 29.5 % 28.8 % (35.0-46.0) (35.0-46.0) (35.0-46.0) Mean Corpuscular Volume 80.4 FL 80.2 FL 81.3 FL (80.0-100.0) (80.0-100.0) (80.0-100.0) Mean Corpuscular Hemoglobin 26.4 PG 26.3 PG 26.3 PG (27.0-34.0) (27.0-34.0) (27.0-34.0) Mean Corpuscular Hemoglobin 32.8 % 32.8 % 32.3 % Concent (32.0-36.0) (32.0-36.0) (32.0-36.0) Red Cell Distribution Width 16.7 % 16.0 % 16.8 % (11.6-17.2) (11.6-17.2) (11.6-17.2) Platelet Count 374 TH/MM3 360 TH/MM3 383 TH/MM3 (150-450) (150-450) (150-450) Mean Platelet Volume 8.9 FL 8.5 FL 8.8 FL (7.0-11.0) (7.0-11.0) (7.0-11.0) Blood Type O POSITIVE Antibody Screen NEGATIVE Crossmatch Leukocyte-Reduced Red Blood Cells Blood Bank Comment Sodium Level 142 MEQ/L 143 MEQ/L (136-145) (136-145) Potassium Level 3.1 MEQ/L 3.5 MEQ/L (3.5-5.1) (3.5-5.1) Chloride Level 108 MEQ/L 109 MEQ/L (98-107) (98-107) Carbon Dioxide Level 24.5 MEQ/L 26.3 MEQ/L (21.0-32.0) (21.0-32.0) Anion Gap 10 MEQ/L (5-15) 8 MEQ/L (5-15) Blood Urea Nitrogen 6 MG/DL (7-18) 6 MG/DL (7-18) Creatinine 0.48 MG/DL 0.46 MG/DL (0.50-1.00) (0.50-1.00) Estimat Glomerular Filtration 162 ML/MIN 171 ML/MIN Rate (>89) (>89) Random Glucose 93 MG/DL 84 MG/DL (74-106) (74-106) Calcium Level 8.4 MG/DL 8.4 MG/DL (8.5-10.1) (8.5-10.1) Phosphorus Level 2.9 MG/DL 2.2 MG/DL (2.5-4.9) (2.5-4.9) Magnesium Level 2.1 MG/DL 2.1 MG/DL (1.5-2.5) (1.5-2.5) Test 07/01/16 05:25 White Blood Count 8.5 TH/MM3 (4.0-11.0) Red Blood Count 3.80 MIL/MM3 (4.00-5.30) Hemoglobin 10.1 GM/DL (11.6-15.3) Hematocrit 30.9 % (35.0-46.0) Mean Corpuscular Volume 81.3 FL (80.0-100.0) Mean Corpuscular Hemoglobin 26.7 PG (27.0-34.0) Mean Corpuscular Hemoglobin 32.8 % Concent (32.0-36.0) Red Cell Distribution Width 17.1 % (11.6-17.2) Platelet Count 400 TH/MM3 (150-450) Mean Platelet Volume 8.7 FL (7.0-11.0) . Result Diagram: 07/01/16 0525 06/30/16 0310 Microbiology Microbiology Date/Time Procedure Status Source Growth 06/29/16 23:00 Stool Occult Blood ([facility]) - Final Complete Stool Stool HEMOCCULT NEGATIVE . Imaging Last Impressions Chest X-Ray 06/27/16 0000 Signed Impressions: Service Date/Time: Monday, June 27, 2016 11:11 - CONCLUSION: Persistent airspace opacity at the right lung base. No pneumothorax is visualized. Reginaldo Potts MD Abdomen X-Ray 06/26/16 0000 Signed Impressions: Service Date/Time: June 13:08 - CONCLUSION: 1. Nasogastric tube in good position. Benign-appearing bowel gas pattern. Jd Underwood MD Abdomen/Pelvis CT 06/17/16 0000 Signed Impressions: Service Date/Time: Friday, June 17, 2016 04:12 - CONCLUSION: 1. New bibasilar atelectasis. 2. There is some mild dilatation of the small bowel. There is a mild to moderate distention of the colon down to the rectum suggestive of a diffuse adynamic ileus. No definite mechanical obstruction is seen. 3. Otherwise, no other significant changes compared to the prior study. Andi Luna MD Brain MRI 06/15/16 0000 Signed Impressions: Service Date/Time: Wednesday, June 15, 2016 09:10 - CONCLUSION: No acute abnormality seen. 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 Reginaldo Cain MD Head Magnetic Resonance Angiography 06/14/16 0000 Signed Impressions: Service Date/Time: Tuesday, June 14, 2016 18:23 - CONCLUSION: No evidence of vessel truncation or aneurysm. Simone Graham MD Liver Ultrasound 06/13/16 0000 Signed Impressions: Service Date/Time: Monday, June 13, 2016 09:42 - CONCLUSION: 1. Small amount free fluid identified medial to the lower pole of the right kidney. 2. Slight increased hepatic echotexture suggesting some degree of fatty infiltration. 3. Please note the body and tail of the pancreas are obscured by overlying bowel gas. The head neck and uncinate process are sonographically intact. Mauro Leslie MD Head CT 06/12/16 1657 Signed Impressions: Service Date/Time: May 21:37 - CONCLUSION: Unremarkable study. Jose Martinez MD Renal Ultrasound 06/12/16 0000 Signed Impressions: Service Date/Time: May 23:51 - CONCLUSION: 1. Mild pelvocaliectasis on the right. No hydronephrosis involving either kidney. Simone Woody Jr., MD Chest CT 06/12/16 0000 Signed Impressions: Service Date/Time: May 21:39 - CONCLUSION: Right upper lobe parenchymal process may represent pneumonia, however follow up is suggested with repeat noncontrast chest CT in 2-4 weeksafter appropriate clinical therapy. Jose Martinez MD . Procedures INTUBATION 06/12/16 EXTUBATION 06/25/16 PEG TUBE 06/27/16 Bronchoscopy /BAL . . Assessment and Plan Disease Oriented Problem List: (1) respiratory failure (2) UTI/sepsis Comment: Urine cultures have grown out E coli and Pseudomonas. . (3) history of ischemic strokes 2010, with right hemiplegia (4) Seizure Comment: Possible seizure seen on EEG. Started on levitiracetam by neurologist. . (5) encephalopathy, acute and chronic (6) hypertension (7) anemia Comment: appears to be from blood loss but unkown site. Hemoccult was negative. EGD showed gastritis but no active bleeding. . (8) Hypoalbuminemia (9) elevated LFTs, improving (10) hypernatremia, resolved (11) acute kidney injury, resolved Symptom Scale: (1) dyspnea Comment: Dyspnea currently being addressed with mechanical ventilation. . (2) encephalopathy 0-10 Scale: Unable to quantify Comment: Unable to follow commands. . Pertinent Non-Medical Issues Psychosocial: for 13 years, 2 daughters including a 12-year-old from previous relationships, worked as an [employer]NA[employer] for many years. Spiritual: Spirituality has been very important for the patient, and the patient 's does believe that she would appreciate set off blocker visits. Legal: The patient lacks capacity for decision making, and it is very unlikely that she will regain that capacity. Her is the healthcare proxy decision-maker, as there is no reported health care surrogacy form. Ethical issues impacting care: Important Contacts : Josiah Velazquez [phone] NOTE: The patient's wants to be the primary point of contact, as he does not want the patient's older daughter trying to make decisions about the patient's care. . Prognosis The patient's prognosis is quite poor. She was already a debilitated bedbound hemiplegic post stroke patient, at risk for infections and other complications, and now she is more debilitated and with respiratory failure and significant encephalopathy. She will be appropriate for hospice services if/when the patient's decides to transition to comfort care. . Code Status: Full Code Plan ==FULL CODE, confirmed by patient's 06/24/16 and again on 06/30/16 ==GOALS: The patient's reports he wants "everything possible done to save my 's life." He continues to desire re-intubation, ongoing blood transfusions as needed, and has stated he is in favor of tracheostomy if needed. He is aware that "there will come a time when everything is worse and she won't get better" and he may want to "let her go naturally then." He does not see her near this point now, however. ==DECISION-MAKING: The patient lacks capacity for decision making, and it is very unlikely that she will regain that capacity. Her is the healthcare proxy decision-maker, as there is no reported health care surrogacy form. ==NOTE: The patient's wants to be the primary point of contact, as he does not want the patient's older daughter (Natasha) trying to make decisions about the patient's care. == Dyspnea: CXR still showing pneumonia. Mucous plug and thick secretions seen on bronchoscopy. Failed extubation -- general surgery has been consulted for tracheostomy. No further recommendations at this time. == Pain: Has not appeared painful to staff. Not requiring analgesics at this time. No further recommendations at this time. == Restlessness / agitation: Now controlled. == Disposition: Will probably need LTAC or SNF if she survives the hospitalization. Discharge venue will depend in large part on respiratory status. If she required tracheostomy and is not weaned. LTAC will likely be necessary. == Palliative care will continue to work with , update him on the patient's medical condition, and continue to discuss goals of medical treatment as the clinical course evolves. . . Attestation To help prompt me to consider important information that might be impacting today's encounter and assessment, information from prior notes written by myself or my colleagues may have been "brought forward" into today's note. My signature on this note, however, is an attestation that I personally performed the exam, history, and/or decision-making noted today, and, unless otherwise indicated, the interactions with patient, family, and staff as well as the review of records all occurred today. I also attest that the listed assessment and stated plan reflect my best clinical judgment today based on the combination of historical information, prior notes, and today's exam/ interactions. When time spent is documented, it refers only to time spent today by the signer, or if indicated, combined time spent today by collaborating physician/nurse practitioner. . aCrson Venegas MD July 01, 2016 16:58
[2016-07-01] MEDS: SODIUM CHLORIDE 0.9% FLUSH 10 ML FLUSH IV FLUSH SCH ×2 (21:00→22:41)
--- NOTE | 2016-07-01 22:20 | MB ---
cc: PREET KIM MD DATE OF CONSULTATION: 07/01/2016 REASON FOR CONSULTATION: Need for tracheostomy. HISTORY OF PRESENT ILLNESS This is a 56-year-old female with a history of CVA in the distant past who presented on 06/12 to the emergency department with altered mental status and required intubation. She remained encephalopathic basically apparently was extubated on 06/25. Unfortunately she again required intubation for respiratory failure on 06/26, and has been intubated since that time. She has also been treated for probable aspiration as well as staph aureus pneumonia, acute kidney injury and urinary tract infection. Palliative care has been involved and according to the notes, discussed with the palliative care team and the patient's , resulted in proceeding with aggressive care. Therefore, I have been consulted for tracheostomy. PAST MEDICAL HISTORY Obtained primarily from the chart: 1. Hypertension. 2. History of CVA. PAST SURGICAL HISTORY and partial hysterectomy MEDICATIONS Home medications: 1. Temazepam. 2. Amlodipine 3. Meclizine. 4. Ranitidine 5. Baclofen. 6. Sertraline 7. Lyrica. ALLERGIES: NONE. FAMILY HISTORY: Noncontributory. SOCIAL HISTORY There is no record of any current alcohol, tobacco or drug use. REVIEW OF SYSTEMS: Review of systems is unable to be obtained due to her clinical condition. PHYSICAL EXAMINATION General: She is intubated and ventilated. Vital signs: Temperature is 99.3, heart rate 107, blood pressure 139/90. Head: Normocephalic, atraumatic. Eyes: Pupils are reactive bilaterally. No scleral icterus. Neck: A little stiff. The trachea is midline an easily palpable. I don't see any scars. She does have some moist skin, possibly a fungal rash around the neck and a small amount of what looks like a skin tear near the site where the tracheostomy will be. Lungs: Ventilated at 35% FIO2 and 8 of PEEP. Cardiovascular: Sinus tachycardia. Abdomen: Soft, PEG tube in place. Skin: Warm, dry, non jaundiced. LABORATORY DATA Hemoglobin is 10, hematocrit 31, platelet count 400. There is no recent INR. ASSESSMENT/PLAN 56-year-old female with prolonged critical illness as well as encephalopathy and prolonged respiratory failure. She was extubated but required reintubation on June 26. I will plan to proceed with diltation percutaneous tracheostomy, bronchoscopic guided, in conjunction with the intensive care physician. We will coordinate this and plan in the next day or two. I will also order nystatin for her neck, and have discussed with nursing that we need to try and keep it dry. I will check an INR for tomorrow morning as well. MD RUTH Wong/RIC /7:31 PM /10:02 PM
[2016-07-01] MEDS: FAMOTIDINE 20 MG/2 ML VIAL IV PUSH SCH (22:39)
[2016-07-02] VITALS (24 sets, daily range): BP systolic 141–156; BP diastolic 87–100; PULSE 80–125; RESP 16–24; TEMP 97.2–99.5; O2SAT 96–100
[2016-07-02] MEDS: CHLORHEXIDINE GLUCONATE 2 % 1 PACK (2 CLOTHS) TOP SCH (04:00)
[2016-07-02] MEDS: NYSTATIN 100,000 U/GM PWD 15 GM BTL TOPICAL SCH ×3 (06:09→22:00)
[2016-07-02 06:13] LABS: INTERNATIONAL NORMALIZED RATIO 1.3 RATIO
[2016-07-02] MEDS: CHLORHEXIDINE 0.12% (ORAL KIT) 15 ML CUP MT SCH ×2 (08:00→20:52)
[2016-07-02] MEDS: PREGABALIN 75 MG CAP PO SCH ×2 (09:18→20:58)
[2016-07-02] MEDS: LACTULOSE SYRUP 20 GM/30 ML CUP PO SCH ×2 (09:18→20:59)
[2016-07-02] MEDS: levETIRAcetam INJ 500 MG in SODIUM CHLORIDE 0.9% INJ 100 ML IV SCH ×2 (09:18→20:59)
[2016-07-02] MEDS: POLYETHYLENE GLYCOL 17 GM PKG PO SCH (09:19)
[2016-07-02] MEDS: BACLOFEN 10 MG TAB PO SCH ×2 (09:19→21:20)
[2016-07-02] MEDS: METOPROLOL TARTRATE 25 MG TAB PO SCH ×2 (09:19→20:58)
--- NOTE | 2016-07-02 16:18 | HHI.HCPN ---
Reason for visit a. To assist with evaluation and management of symptoms including: Dyspnea , encephalopathy b. To assist medical decision maker(s) with: better understanding of current medical conditions; weighing benefits/burdens of medical treatment options; making medical treatment decisions. . Subjective/Interval History INTERVAL NOTE: Patient was successfully extubated on 06/25/16 but required emergency re- intubation on 06/26/16 when 02 sats were only 80% on 100% FI02. CXR at the time showed RLL infiltrate with volume loss. She underwent bronchoscopy with alveolar lavage on 06/27 which revealed thick secretions/mucous plugs. PEG tube was also placed on 06/27/16. In addition, Hg dropped from 8.3 on 06/26 to 6.9 on 06/28 and pt was transfused with 2 units of PRBCs. There was some gastrtitis on EGD at time of PEG insertion, but no other bleeding source has been noted. No significant change. Patient remains intubated and mechanically ventilated in the MICU. She opens her eyes and tracks but does not follow commands. General surgery evaluated the patient on 07/01. Tracheostomy will probably be done 07/03/16. Nursing pain level scores at "0." Not receiving any opiate analgesics. Tmax 99.5. Hemodynamically stable. remains mechanically ventilated on 35% FIO02. Bowels moving well. Urine output good. No new lab today. No new imaging today. No new culture results. . Family/friend interactions Attempted to call to update him and answer any questions. No answer. Left message. . Advance Directives Living Will: Completed, but not made available Health Care Surrogate: Completed, but not made available Advance Directive Specifics Date completed: A living will was shown to our palliative care social worker assistant -- Nicole Woody. Unfortunately, it did not have year/date on it and was missing appropriate witness signatures. It did show intent to designate her as the Health care surrogate. Without a year/date, it is difficult to know if the document was executed while the patient was fully capacitated or not. . Health Care Surrogate(s): A living will was shown to our palliative care social worker assistant -- Nicole Woody. Unfortunately, it did not have year/date on it and was missing appropriate witness signatures. It did show intent to designate her as the Health care surrogate. Without a year/date, it is difficult to know if the document was executed while the patient was fully capacitated or not. . Documented care wishes: A living will was shown to our palliative care social worker assistant -- Nicole Woody. Unfortunately, it did not have year/date on it and was missing appropriate witness signatures. It did show intent to designate her as the Health care surrogate. Without a year/date, it is difficult to know if the document was executed while the patient was fully capacitated or not. . . Objective Vital Signs Date Time Temp Pulse Resp B/P Pulse Ox O2 Delivery O2 Flow Rate FiO2 07/02/16 15:44 100 35 07/02/16 14:00 110 07/02/16 14:00 104 16 147/92 100 07/02/16 13:00 107 16 144/93 100 07/02/16 12:13 100 35 07/02/16 12:00 103 17 142/89 100 07/02/16 12:00 99.5 114 20 146/94 98 07/02/16 12:00 110 07/02/16 12:00 35 07/02/16 12:00 99.0 80 20 147/92 98 07/02/16 11:00 101 19 141/88 100 07/02/16 10:00 110 07/02/16 10:00 110 16 142/92 100 07/02/16 09:00 115 19 150/96 100 07/02/16 08:43 100 35 07/02/16 08:00 35 07/02/16 08:00 115 16 146/94 100 07/02/16 08:00 99.5 114 20 146/94 98 07/02/16 08:00 110 07/02/16 06:00 110 07/02/16 04:35 100 35 07/02/16 04:00 99.5 114 20 149/95 98 07/02/16 04:00 35 07/02/16 04:00 114 07/02/16 02:00 112 07/02/16 01:36 100 35 07/02/16 00:00 35 07/02/16 00:00 112 07/02/16 00:00 99.3 108 18 156/97 96 07/02/16 00:00 99.5 106 16 156/97 98 07/01/16 22:40 100 35 07/01/16 22:00 106 07/01/16 22:00 35 07/01/16 20:00 99.3 114 18 138/86 98 07/01/16 20:00 114 07/01/16 20:00 35 07/01/16 19:45 96 35 07/01/16 18:00 107 Intake & Output 07/02/16 07/02/16 07:00 19:00 Intake Total 1179 ml Output Total 550 ml Balance 629 ml IV Total 298 ml Tube Feeding 881 ml Output Urine Total 550 ml # Bowel Movements 2 . Physical Exam CONSTITUTIONAL/GENERAL: This is an adequately nourished patient, in no apparent distress. She is intubated and mechanically ventilated in an MICU bed. She awakens to voice/exam and tracks but does not follow commands or make any attempt to respond. TUBES/LINES/DRAINS: Cortes catheter, IV; orotracheal tube; PEG tube; right wrist splint; SCDs; PODUS boots. SKIN: No jaundice, rashes, or lesions. No wounds seen anteriorly. Skin temperature appropriate. Not diaphoretic. NECK: Trachea midline. CARDIOVASCULAR: Regular rhythm without murmurs, gallops, or rubs. No JVD. RESPIRATORY/CHEST: Symmetric, unlabored respirations. Lungs clear. GASTROINTESTINAL: Abdomen soft, non-tender, nondistended. No hepato-splenomegaly , or palpable masses. No guarding. Bowel sounds present. GENITOURINARY: Without palpable bladder distension. Cortes catheter in place. MUSCULOSKELETAL: Extremities without clubbing, cyanosis, or edema. No calf tenderness. No mottling. NEUROLOGICAL: Eyes are open, appears awake, but does not track and does not follow simple command. PSYCHIATRIC: No obvious anxiety, restlessness. Difficult to assess mood -- not communicating. . . Diagnostic Tests Laboratory Laboratory Tests Test 06/30/16 07/01/16 07/02/16 03:10 05:25 05:11 White Blood Count 7.9 TH/MM3 8.5 TH/MM3 (4.0-11.0) (4.0-11.0) Red Blood Count 3.54 MIL/MM3 3.80 MIL/MM3 (4.00-5.30) (4.00-5.30) Hemoglobin 9.3 GM/DL 10.1 GM/DL (11.6-15.3) (11.6-15.3) Hematocrit 28.8 % 30.9 % (35.0-46.0) (35.0-46.0) Mean Corpuscular Volume 81.3 FL 81.3 FL (80.0-100.0) (80.0-100.0) Mean Corpuscular Hemoglobin 26.3 PG 26.7 PG (27.0-34.0) (27.0-34.0) Mean Corpuscular Hemoglobin 32.3 % 32.8 % Concent (32.0-36.0) (32.0-36.0) Red Cell Distribution Width 16.8 % 17.1 % (11.6-17.2) (11.6-17.2) Platelet Count 383 TH/MM3 400 TH/MM3 (150-450) (150-450) Mean Platelet Volume 8.8 FL 8.7 FL (7.0-11.0) (7.0-11.0) Sodium Level 143 MEQ/L (136-145) Potassium Level 3.5 MEQ/L (3.5-5.1) Chloride Level 109 MEQ/L (98-107) Carbon Dioxide Level 26.3 MEQ/L (21.0-32.0) Anion Gap 8 MEQ/L (5-15) Blood Urea Nitrogen 6 MG/DL (7-18) Creatinine 0.46 MG/DL (0.50-1.00) Estimat Glomerular Filtration 171 ML/MIN Rate (>89) Random Glucose 84 MG/DL (74-106) Calcium Level 8.4 MG/DL (8.5-10.1) Phosphorus Level 2.2 MG/DL (2.5-4.9) Magnesium Level 2.1 MG/DL (1.5-2.5) Prothrombin Time 14.0 SEC (9.8-11.6) Prothromb Time International 1.3 RATIO Ratio . Result Diagram: 07/01/16 0525 06/30/16 0310 Microbiology Microbiology Date/Time Procedure Status Source Growth 06/29/16 23:00 Stool Occult Blood ([facility]) - Final Complete Stool Stool HEMOCCULT NEGATIVE . Imaging Last Impressions Chest X-Ray 06/27/16 0000 Signed Impressions: Service Date/Time: Monday, June 27, 2016 11:11 - CONCLUSION: Persistent airspace opacity at the right lung base. No pneumothorax is visualized. Reginaldo Potts MD Abdomen X-Ray 06/26/16 0000 Signed Impressions: Service Date/Time: June 13:08 - CONCLUSION: 1. Nasogastric tube in good position. Benign-appearing bowel gas pattern. Jd Underwood MD Abdomen/Pelvis CT 06/17/16 0000 Signed Impressions: Service Date/Time: Friday, June 17, 2016 04:12 - CONCLUSION: 1. New bibasilar atelectasis. 2. There is some mild dilatation of the small bowel. There is a mild to moderate distention of the colon down to the rectum suggestive of a diffuse adynamic ileus. No definite mechanical obstruction is seen. 3. Otherwise, no other significant changes compared to the prior study. Andi uLna MD Brain MRI 06/15/16 0000 Signed Impressions: Service Date/Time: Wednesday, June 15, 2016 09:10 - CONCLUSION: No acute abnormality seen. 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 Reginaldo Cain MD Head Magnetic Resonance Angiography 06/14/16 0000 Signed Impressions: Service Date/Time: Tuesday, June 14, 2016 18:23 - CONCLUSION: No evidence of vessel truncation or aneurysm. Simone Graham MD Liver Ultrasound 06/13/16 0000 Signed Impressions: Service Date/Time: Monday, June 13, 2016 09:42 - CONCLUSION: 1. Small amount free fluid identified medial to the lower pole of the right kidney. 2. Slight increased hepatic echotexture suggesting some degree of fatty infiltration. 3. Please note the body and tail of the pancreas are obscured by overlying bowel gas. The head neck and uncinate process are sonographically intact. Mauro Leslie MD Head CT 06/12/16 1657 Signed Impressions: Service Date/Time: May 21:37 - CONCLUSION: Unremarkable study. Jose Martinez MD Renal Ultrasound 06/12/16 0000 Signed Impressions: Service Date/Time: May 23:51 - CONCLUSION: 1. Mild pelvocaliectasis on the right. No hydronephrosis involving either kidney. Simone Woody Jr., MD Chest CT 06/12/16 0000 Signed Impressions: Service Date/Time: May 21:39 - CONCLUSION: Right upper lobe parenchymal process may represent pneumonia, however follow up is suggested with repeat noncontrast chest CT in 2-4 weeksafter appropriate clinical therapy. Jose Martinez MD . Procedures INTUBATION 06/12/16 EXTUBATION 06/25/16 PEG TUBE 06/27/16 Bronchoscopy /BAL . Assessment and Plan Disease Oriented Problem List: (1) respiratory failure Comment: Failed extubation. . (2) UTI/sepsis Comment: Urine cultures have grown out E coli and Pseudomonas. . (3) history of ischemic strokes 2010, with right hemiplegia (4) Seizure Comment: Possible seizure seen on EEG. Started on levitiracetam by neurologist. . (5) encephalopathy, acute and chronic (6) hypertension (7) anemia Comment: appears to be from blood loss but unkown site. Hemoccult was negative. EGD showed gastritis but no active bleeding. . (8) Hypoalbuminemia (9) elevated LFTs, improving (10) hypernatremia, resolved (11) acute kidney injury, resolved Symptom Scale: (1) dyspnea Comment: Dyspnea currently being addressed with mechanical ventilation. . (2) encephalopathy 0-10 Scale: Unable to quantify Comment: Unable to follow commands. . 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 Spiritual: Spirituality has been very important for the patient, and the patient 's does believe that she would appreciate second cutter visits. Legal: The patient lacks capacity for decision making, and it is very unlikely that she will regain that capacity. Her is the healthcare proxy decision-maker, as there is no reported health care surrogacy form. Ethical issues impacting care: Important Contacts : Josiah Velazquez [phone] NOTE: The patient's wants to be the primary point of contact, as he does not want the patient's older daughter trying to make decisions about the patient's care. . Prognosis The patient's prognosis is quite poor. She was already a debilitated bedbound hemiplegic post stroke patient, at risk for infections and other complications, and now she is more debilitated and with respiratory failure and significant encephalopathy. She will be appropriate for hospice services if/when the patient's decides to transition to comfort care. . Code Status: Full Code Plan ==FULL CODE, confirmed by patient's 06/24/16 and again on 06/30/16 ==GOALS: The patient's reports he wants "everything possible done to save my 's life." He continues to desire re-intubation, ongoing blood transfusions as needed, and has stated he is in favor of tracheostomy if needed. He is aware that "there will come a time when everything is worse and she won't get better" and he may want to "let her go naturally then." He does not see her near this point now, however. ==DECISION-MAKING: The patient lacks capacity for decision making, and it is very unlikely that she will regain that capacity. Her is the healthcare proxy decision-maker, as there is no reported health care surrogacy form. ==NOTE: The patient's wants to be the primary point of contact, as he does not want the patient's older daughter (Natasha) trying to make decisions about the patient's care. == Dyspnea: CXR showing pneumonia. Mucous plug and thick secretions seen on bronchoscopy. Failed extubation -- general surgery has been consulted for tracheostomy. No further recommendations at this time. == Pain: Has not appeared painful to staff. Not requiring analgesics at this time. No further recommendations at this time. == Restlessness / agitation: Now controlled. == Disposition: Will probably need LTAC or SNF if she survives the hospitalization. Discharge venue will depend in large part on respiratory status. If she required tracheostomy and is not weaned. LTAC will likely be necessary. == Palliative care will continue to work with , update him on the patient's medical condition, and continue to discuss goals of medical treatment as the clinical course evolves. . Attestation To help prompt me to consider important information that might be impacting today's encounter and assessment, information from prior notes written by myself or my colleagues may have been "brought forward" into today's note. My signature on this note, however, is an attestation that I personally performed the exam, history, and/or decision-making noted today, and, unless otherwise indicated, the interactions with patient, family, and staff as well as the review of records all occurred today. I also attest that the listed assessment and stated plan reflect my best clinical judgment today based on the combination of historical information, prior notes, and today's exam/ interactions. When time spent is documented, it refers only to time spent today by the signer, or if indicated, combined time spent today by collaborating physician/nurse practitioner. . Carson Venegas MD July 02, 2016 16:18
--- NOTE | 2016-07-02 17:02 | HHI.CCPN ---
Subjective Remarks/Hospital Course 56-year-old female brought in by EMS emergently as altered mental status, hypoxia and temperature 104. Patient has a history of CVA many years ago. Per caregiver she didn't feel well since yesterday and wasn't taking any of medications including baclofen. Patient was unable to communicate due to her altered mental status. As per EMS not much history was available from the family but she has history of CVA as baseline but communicates. In the emergency department patient's oxygen saturation was low 70s upon EMS arrival. They had her on oxygen via nonrebreather and sats of 93%. GCS was 6 and she was intubated by ER attending for an airway protection. 06/13 Patient is sedated with Versed and on Bicarb drip. Renal function is improving with Cr: 2.12 from 3.19 UO: 1350ml since yesterday. Afebrile. 06/14 Patient remains sedated and intubated. Afebrile. Renal function continue to improve with Cr: 1.18 today from 1.53. 06/15 No acute events overnight. Off sedation remains intubated. Patient tolerated CPAP all day yesterday. MRA brain last night is unremarkable. T:99.9 06/16 Patient remains intubated off sedation. Afebrile. Tolerated CPAP all day yesterday remains encephalopathic. 06/17 No acute events overnight. Patient is able to open her eyes but does not follow commands. T: 100.1 last night. 06/18: Remains encephalopathic, orally intubated on mechanical ventilation. 06/19: Remains encephalopathic, orally intubated on mechanical ventilation. Daily C Pap trials ongoing. 06/20: Remains encephalopathic, orally intubated on mechanical ventilation. Daily C Pap trials. Tube feeds resumed. 06/21: More awake however not following commands. Remains orally intubated on mechanical ventilation. Tolerating tube feeds. Daily C Pap trials ongoing. 06/22: Encephalopathic though more awake, arousable. Not following commands. Remains orally intubated on mechanical ventilation. Tolerating tube feeds. Daily C Pap trials. 06/23: Awake, not following commands. Remains orally intubated on mechanical ventilation. Failing C Pap trials. Tolerating tube feeds. 06/24: Opening eyes, blinks on command. Remains orally intubated on mechanical ventilation. Tolerating tube feeds. Gets tachypneic with low volumes on dropping pressure-support at C Pap trials. We'll initiate diuresis as patient isn't significantly positive fluid balance since admission due to fluids administered for sepsis which now appears to be under control. 06/25: Awake, appears to focus. Extubated today following C Pap trial. Continue diuresis. 06/26: CCM reconsult note. Patient was extubated yesterday 06/25 and apparently was doing well initially. Overnight was placed on a 100% percent nonrebreather. I was called to the bedside emergently by Denny PATINO, today around 12.30 pm, patient was more unresponsive and hypoxemic on 100% nonrebreather. On my evaluation patient's eyes were open but nonresponsive, shallow breathing. Oxygen saturation 80% on 100 percent nonrebreather. Emergently intubated and placed on mechanical ventilation. Moderate amount of white secretions at glottic opening. CXR shows RLL infiltrate with volume loss? aspiration. Sputum cx. Discuss with ID Dr. Ortiz, will place on broad-spectrum antibiotics with Zosyn 06/27: Tmax 99.6 The patient was emergently reintubated yesterday, overnight no increasing ventilatory requirements were noted. The patient underwent a bronchoscopy with BAL this a.m., cultures were sent. Plan for PEG placement today. 06/28: Tmax 98.4 The patient underwent PEG placement yesterday, will resume tube feedings today. Mucomyst was initiated yesterday status post bronchial noted mucous plugs, with thick tenacious secretions. Will tentatively plan for tracheostomy next week, if unable to wean, and increasing ventilatory requirements. 06/29: She was noted to have a drop in hemoglobin last night, and received 2 units of packed red blood cells. Hemoccult has been ordered stat CBC to be followed up. No obvious signs of bleeding noted. 06/30: Hgb stable. No change in neuro status. will attempt CPAP trials. Palliative medicine, Dr. Venegas to schedule goals of care now with reintubation. 07/01: Remains encephalopathic. Hemoglobin stable at 10.0. No acute changes overnight. Discussion with palliative care team and , he would like aggressive measures/treatments to continue to include tracheostomy. General surgery has been consulted. 07/02: Afebrile. No acute changes overnight. Patient was evaluated by general surgery plans for tracheostomy in the next few days with coordination. Objective Vital Signs Date Time Temp Pulse Resp B/P Pulse Ox O2 Delivery O2 Flow Rate FiO2 07/02/16 15:44 100 35 07/02/16 14:00 110 07/02/16 14:00 16 147/92 07/02/16 12:00 99.5 Intake and Output 07/01/16 07/01/16 07/02/16 08:00 16:00 00:00 Intake Total 258 ml 76 ml 691 ml Output Total 800 ml 425 ml 300 ml Balance -542 ml -349 ml 391 ml Result Diagram: 07/01/16 0525 06/30/16 0310 Other Results Microbiology Date/Time Procedure Status Source Growth 06/29/16 23:00 Stool Occult Blood ([facility]) - Final Complete Stool Stool HEMOCCULT NEGATIVE Imaging Last Impressions Chest X-Ray 06/27/16 0000 Signed Impressions: Service Date/Time: Monday, June 27, 2016 11:11 - CONCLUSION: Persistent airspace opacity at the right lung base. No pneumothorax is visualized. Reginaldo Potts MD Abdomen X-Ray 06/26/16 0000 Signed Impressions: Service Date/Time: June 13:08 - CONCLUSION: 1. Nasogastric tube in good position. Benign-appearing bowel gas pattern. Jd Underwood MD Abdomen/Pelvis CT 06/17/16 0000 Signed Impressions: Service Date/Time: Friday, June 17, 2016 04:12 - CONCLUSION: 1. New bibasilar atelectasis. 2. There is some mild dilatation of the small bowel. There is a mild to moderate distention of the colon down to the rectum suggestive of a diffuse adynamic ileus. No definite mechanical obstruction is seen. 3. Otherwise, no other significant changes compared to the prior study. Andi Luna MD Brain MRI 06/15/16 0000 Signed Impressions: Service Date/Time: Wednesday, June 15, 2016 09:10 - CONCLUSION: No acute abnormality seen. 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 Reginaldo Cain MD Head Magnetic Resonance Angiography 06/14/16 0000 Signed Impressions: Service Date/Time: Tuesday, June 14, 2016 18:23 - CONCLUSION: No evidence of vessel truncation or aneurysm. Simone Graham MD Liver Ultrasound 06/13/16 0000 Signed Impressions: Service Date/Time: Monday, June 13, 2016 09:42 - CONCLUSION: 1. Small amount free fluid identified medial to the lower pole of the right kidney. 2. Slight increased hepatic echotexture suggesting some degree of fatty infiltration. 3. Please note the body and tail of the pancreas are obscured by overlying bowel gas. The head neck and uncinate process are sonographically intact. Mauro Leslie MD Head CT 06/12/161656 Signed Impressions: Service Date/Time: May 21:37 - CONCLUSION: Unremarkable study. Jose Martinez MD Renal Ultrasound 06/12/16 Signed Impressions: Service Date/Time: May 23:51 - CONCLUSION: 1. Mild pelvocaliectasis on the right. No hydronephrosis involving either kidney. Simone Woody Jr., MD Chest CT 06/12/16 0000 Signed Impressions: Service Date/Time: May 21:39 - CONCLUSION: Right upper lobe parenchymal process may represent pneumonia, however follow up is suggested with repeat noncontrast chest CT in 2-4 weeksafter appropriate clinical therapy. Jose Martinez MD Last Impressions Chest X-Ray 06/27/16 Signed Impressions: Service Date/Time: Monday, June 27, 2016 11:11 - CONCLUSION: Persistent airspace opacity at the right lung base. No pneumothorax is visualized. Reginaldo Potts MD Abdomen X-Ray 06/26/16 Signed Impressions: Service Date/Time: June 13:08 - CONCLUSION: 1. Nasogastric tube in good position. Benign-appearing bowel gas pattern. Jd Underwood MD Abdomen/Pelvis CT 06/17/16 Signed Impressions: Service Date/Time: Friday, June 17, 2016 04:12 - CONCLUSION: 1. New bibasilar atelectasis. 2. There is some mild dilatation of the small bowel. There is a mild to moderate distention of the colon down to the rectum suggestive of a diffuse adynamic ileus. No definite mechanical obstruction is seen. 3. Otherwise, no other significant changes compared to the prior study. Andi Luna MD Brain MRI 06/15/16 Signed Impressions: Service Date/Time: Wednesday, June 15, 2016 09:10 - CONCLUSION: No acute abnormality seen. 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 Reginaldo Cain MD Head Magnetic Resonance Angiography 06/14/16 Signed Impressions: Service Date/Time: Tuesday, June 14, 2016 18:23 - CONCLUSION: No evidence of vessel truncation or aneurysm. Simone Graham MD Liver Ultrasound 06/13/16 Signed Impressions: Service Date/Time: Monday, June 13, 2016 09:42 - CONCLUSION: 1. Small amount free fluid identified medial to the lower pole of the right kidney. 2. Slight increased hepatic echotexture suggesting some degree of fatty infiltration. 3. Please note the body and tail of the pancreas are obscured by overlying bowel gas. The head neck and uncinate process are sonographically intact. Mauro Leslie MD Head CT 06/12/161656 Signed Impressions: Service Date/Time: May 21:37 - CONCLUSION: Unremarkable study. Jose Martinez MD Renal Ultrasound 06/12/16 Signed Impressions: Service Date/Time: May 23:51 - CONCLUSION: 1. Mild pelvocaliectasis on the right. No hydronephrosis involving either kidney. Simone Woody Jr., MD Chest CT 06/12/16 Signed Impressions: Service Date/Time: May 21:39 - CONCLUSION: Right upper lobe parenchymal process may represent pneumonia, however follow up is suggested with repeat noncontrast chest CT in 2-4 weeksafter appropriate clinical therapy. Jose Martinez MD Last Impressions Abdomen/Pelvis CT 06/17/16 Signed Impressions: Service Date/Time: Friday, June 17, 2016 04:12 - CONCLUSION: 1. New bibasilar atelectasis. 2. There is some mild dilatation of the small bowel. There is a mild to moderate distention of the colon down to the rectum suggestive of a diffuse adynamic ileus. No definite mechanical obstruction is seen. 3. Otherwise, no other significant changes compared to the prior study. Andi Luna MD Chest X-Ray 06/16/16 Signed Impressions: Service Date/Time: Thursday, June 16, 2016 04:51 - CONCLUSION: Right basilar density likely atelectasis.. Chadd Kahn MD Abdomen X-Ray 06/16/16 Signed Impressions: Service Date/Time: Thursday, June 16, 2016 17:15 - CONCLUSION: 1. Nonspecific bowel gas pattern which may represent a mild ileus or gastroenteritis. Rico Pedraza MD Brain MRI 06/15/16 Signed Impressions: Service Date/Time: Wednesday, June 15, 2016 09:10 - CONCLUSION: No acute abnormality seen. 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 Reginaldo Cain MD Head Magnetic Resonance Angiography 06/14/16 Signed Impressions: Service Date/Time: Tuesday, June 14, 2016 18:23 - CONCLUSION: No evidence of vessel truncation or aneurysm. Simone Graham MD Liver Ultrasound 06/13/16 Signed Impressions: Service Date/Time: Monday, June 13, 2016 09:42 - CONCLUSION: 1. Small amount free fluid identified medial to the lower pole of the right kidney. 2. Slight increased hepatic echotexture suggesting some degree of fatty infiltration. 3. Please note the body and tail of the pancreas are obscured by overlying bowel gas. The head neck and uncinate process are sonographically intact. Mauro Leslie MD Head CT 06/12/161656 Signed Impressions: Service Date/Time: May 21:37 - CONCLUSION: Unremarkable study. Jose Martinez MD Renal Ultrasound 06/12/16 Signed Impressions: Service Date/Time: May 23:51 - CONCLUSION: 1. Mild pelvocaliectasis on the right. No hydronephrosis involving either kidney. Simone Woody Jr., MD Chest CT 06/12/16 Signed Impressions: Service Date/Time: May 21:39 - CONCLUSION: Right upper lobe parenchymal process may represent pneumonia, however follow up is suggested with repeat noncontrast chest CT in 2-4 weeksafter appropriate clinical therapy. Jose Martinez MD Objective Remarks BP 140/87 P108 O2 Saturation 100% GENERAL: Elderly woman unresponsive, intubated and sedated SKIN: Warm and dry. HEAD: Normocephalic. EYES: Pallor present, No scleral icterus. No injection or drainage. NECK: Supple, trachea midline. Orotracheally intubated CARDIOVASCULAR: Tachycardic rate and rhythm without murmurs, gallops, or rubs. RESPIRATORY: Mechanical ventilation Breath sounds diminished B/L bases. GASTROINTESTINAL: Abdomen soft, non-tender, nondistended. Noted PEG in situ MUSCULOSKELETAL: No cyanosis, or edema. EXTREMITIES: No clubbing cyanosis or edema NEURO: Eyes are open, but patient is unresponsive, no response to sternal rub. A/P Assessment and Plan ASSESSMENT: Acute hypoxemic respiratory failure Probable aspiration/HCAP with R volume loss Encephalopathy SIRS/sepsis UTI Staph aureus pneumonia Acute kidney injury Rhabdo Hypernatremia Hypokalemia Anemia Lactic acidemia Leukocytosis- resolved Elevated LFT PLAN: Neuro: Emergently intubated today 06/26/16. Placed on propofol for sedation for ventilator synchrony CT brain: No acute findings. UDS+ +Benzos MRA brain 06/14- Unremarkable. s/p LP showed clear CSF and 15 WBC. EEG: Bihemispheric slowing, small sharp waves b/l Neuro is following- Dr. Boggs, On Keppra 500mg Q12 Pulm: Emergently intubated and placed on mechanical ventilation for acute hypoxemic respiratory failure on 06/26/16 Extubated 06/25, progressive hypoxia, on NRB prior to intubation. CXR RLL infiltrate with some volume loss Broad-spectrum antibiotics to cover for aspiration (Zosyn). Bronchodilators, ICU vent bundle. Thick tenacious secretions noted on bronchoscopy, Mucomyst added to medication regimen 3 days 06/27-Bronchoscopy with BAL cultures sent Tentative plan for tracheostomy secondary to prolonged mechanical ventilation, and failure to wean Plans for tracheostomy this week CV: Monitor HR and BP keep MAP>65mmHg. Initiated diuresis with Lasix on 06/24 to mobilize fluid. : Monitor renal function, I/O's, avoid nephrotoxins. Electrolytes replacement per protocol. Renal US: No hydronephrosis. Renal is following- Dr. Corral GI/liver: On Pepcid 20meq IV qhs, tube feeds with Glucerna in 24 hours Monitor LFT's ( trending down), US liver: Fatty liver. Elevated urinary copper - GI is following. CT abdomen/pelvis 06/17- findings suggestive of adynamic ileus. No mechanical obstruction. On Reglan 5mg Iv q8 PRN, Miralax, Lactulose 06/27 PEG placement ID: Had been off all antibiotics. 06/26 Placed on IV Zosyn, Vanc due Acute respiratory decompensation and intubation, probable aspiration (Initial Abx switched from Zyvox,Zosyn to Rocephin on 06/19, had been off all ABX ) Pertinent cultures: 06/12 Urine cx: E.coli 06/12 BC: No growth 06/12 CSG: NGTD 06/15 urine: E coli, sputum: MSSA 06/26: Blood sputum and urine cultures sent pending Antifungal cream added to medication regimen per general surgery, anterior and lateral neck areas Heme: Thrombocytopenia-resolved Anemia Monitor CBC, and coags. Hgb 10.0 Hep plt ab negative. 06/28-Transfused 2 units of PRBCs Endo: SSI for glycemic control, TSH level: 2.5 GI Prophylaxis with Pepcid DVT prophylaxis with SCD's, not on chemical DVT prophylaxis 2nd to thrombocytopenia Palliative care Dr. Venegas, following to assist with deciding goals of therapy. Patient's wishes to continue full CODE STATUS at this time, and continued aggressive treatment/therapies. Dispo: Level 3 I discussed with DIRECTOR OF SCIENCE at bedside Physician Stacy Reeves MD July 02, 2016 17:02
[2016-07-02] MEDS: FAMOTIDINE 20 MG/2 ML VIAL IV PUSH SCH (20:59)
[2016-07-02] MEDS: SODIUM CHLORIDE 0.9% FLUSH 10 ML FLUSH IV FLUSH SCH ×3 (20:59→22:00)
[2016-07-03] VITALS (18 sets, daily range): BP systolic 138–168; BP diastolic 93–112; PULSE 94–119; RESP 14–20; TEMP 99–100.2; O2SAT 96–100
[2016-07-03] MEDS: CHLORHEXIDINE GLUCONATE 2 % 1 PACK (2 CLOTHS) TOP SCH (01:38)
[2016-07-03 04:35] LABS: INTERNATIONAL NORMALIZED RATIO 1.3 RATIO; PROTHROMBIN TIME - PATIENT 14.6 SEC (9.8-11.6)
[2016-07-03 04:51] LABS: BICARBONATE 27.6 MEQ/L (21.0-32.0); MAGNESIUM 2.1 MG/DL (1.5-2.5); POTASSIUM 3.6 MEQ/L (3.5-5.1)
[2016-07-03 05:02] LABS: HEMATOCRIT 32.9 % (35.0-46.0); MEAN CELL VOLUME 81.8 FL (80.0-100.0); MEAN CORPUSCULAR HEMOGLOBIN 26.2 PG (27.0-34.0); PLATELET COUNT 353 TH/MM3 (150-450); RED BLOOD COUNT 4.02 MIL/MM3 (4.00-5.30); RED CELL DISTRIBUTION WIDTH 17.6 % (11.6-17.2); REVIEW FLAG FINAL
[2016-07-03] MEDS: NYSTATIN 100,000 U/GM PWD 15 GM BTL TOPICAL SCH ×3 (05:17→21:43)
[2016-07-03] MEDS: SODIUM CHLORIDE 0.9% FLUSH 10 ML FLUSH IV FLUSH SCH ×2 (08:55→19:54)
[2016-07-03] MEDS: METOPROLOL TARTRATE 25 MG TAB PO SCH ×2 (08:55→19:54)
[2016-07-03] MEDS: levETIRAcetam INJ 500 MG in SODIUM CHLORIDE 0.9% INJ 100 ML IV SCH ×2 (08:55→19:53)
[2016-07-03] MEDS: CHLORHEXIDINE 0.12% (ORAL KIT) 15 ML CUP MT SCH ×2 (08:55→20:00)
[2016-07-03] MEDS: LACTULOSE SYRUP 20 GM/30 ML CUP PO SCH ×2 (08:55→19:54)
[2016-07-03] MEDS: POLYETHYLENE GLYCOL 17 GM PKG PO SCH (08:56)
[2016-07-03] MEDS: BACLOFEN 10 MG TAB PO SCH ×3 (08:56→16:59)
[2016-07-03] MEDS: PREGABALIN 75 MG CAP PO SCH ×2 (08:56→19:54)
[2016-07-03] MEDS ORDERED: ROCURONIUM INJ 50 MG/5 ML VIAL IV PUSH ONE (09:45)
[2016-07-03] MEDS ORDERED: ROCURONIUM INJ 100 MG/10 ML VIAL IV ONE (09:45)
[2016-07-03] MEDS ORDERED: fentaNYL CITRATE 250 MCG/5 ML AMP IV PUSH ONE (09:45)
[2016-07-03] MEDS ORDERED: PROPOFOL 500 MG/50 ML INJ 50 ML ONE (10:43)
--- NOTE | 2016-07-03 11:12 | PD.PROCEDR ---
Procedure Note Procedure Procedure: Fiberoptic Bronchoscopy Diagnosis: Respiratory failure/failure to wean Indications: Percutaneous tracheostomy Consent: Obtained from Anesthesia: see MAR Description of the Procedure: The patient was sedated and mechanically ventilated. The patient was placed on 100% FIO2 and a volume control mode of ventilation. The fiberoptic bronchoscopy was inserted via 8.0 ETT. The trachea, right and left mainstem bronchi, and sub-segmental bronchi were evaluated. The endobronchial anatomy was normal. Findings: Normal anatomy BAL samples: 0 The patient tolerated the procedure well with no hemodynamic instability or hypoxia. There were no immediate complications noted. At the conclusion of the procedure, the patient was placed back on their pre-procedure ventilatory settings. There was minimal EBL. A chest x-ray has been ordered. I personally performed the procedure. Stacy Medellin MD July 03, 2016 11:12
--- NOTE | 2016-07-03 11:18 | HHI.CCPN ---
Subjective Remarks/Hospital Course 56-year-old female brought in by EMS emergently as altered mental status, hypoxia and temperature 104. Patient has a history of CVA many years ago. Per caregiver she didn't feel well since yesterday and wasn't taking any of medications including baclofen. Patient was unable to communicate due to her altered mental status. As per EMS not much history was available from the family but she has history of CVA as baseline but communicates. In the emergency department patient's oxygen saturation was low 70s upon EMS arrival. They had her on oxygen via nonrebreather and sats of 93%. GCS was 6 and she was intubated by ER attending for an airway protection. 06/13 Patient is sedated with Versed and on Bicarb drip. Renal function is improving with Cr: 2.12 from 3.19 UO: 1350ml since yesterday. Afebrile. 06/14 Patient remains sedated and intubated. Afebrile. Renal function continue to improve with Cr: 1.18 today from 1.53. 06/15 No acute events overnight. Off sedation remains intubated. Patient tolerated CPAP all day yesterday. MRA brain last night is unremarkable. T:99.9 06/16 Patient remains intubated off sedation. Afebrile. Tolerated CPAP all day yesterday remains encephalopathic. 06/17 No acute events overnight. Patient is able to open her eyes but does not follow commands. T: 100.1 last night. 06/18: Remains encephalopathic, orally intubated on mechanical ventilation. 06/19: Remains encephalopathic, orally intubated on mechanical ventilation. Daily C Pap trials ongoing. 06/20: Remains encephalopathic, orally intubated on mechanical ventilation. Daily C Pap trials. Tube feeds resumed. 06/21: More awake however not following commands. Remains orally intubated on mechanical ventilation. Tolerating tube feeds. Daily C Pap trials ongoing. 06/22: Encephalopathic though more awake, arousable. Not following commands. Remains orally intubated on mechanical ventilation. Tolerating tube feeds. Daily C Pap trials. 06/23: Awake, not following commands. Remains orally intubated on mechanical ventilation. Failing C Pap trials. Tolerating tube feeds. 06/24: Opening eyes, blinks on command. Remains orally intubated on mechanical ventilation. Tolerating tube feeds. Gets tachypneic with low volumes on dropping pressure-support at C Pap trials. We'll initiate diuresis as patient isn't significantly positive fluid balance since admission due to fluids administered for sepsis which now appears to be under control. 06/25: Awake, appears to focus. Extubated today following C Pap trial. Continue diuresis. 06/26: CCM reconsult note. Patient was extubated yesterday 06/25 and apparently was doing well initially. Overnight was placed on a 100% percent nonrebreather. I was called to the bedside emergently by Denny PATINO, today around 12.30 pm, patient was more unresponsive and hypoxemic on 100% nonrebreather. On my evaluation patient's eyes were open but nonresponsive, shallow breathing. Oxygen saturation 80% on 100 percent nonrebreather. Emergently intubated and placed on mechanical ventilation. Moderate amount of white secretions at glottic opening. CXR shows RLL infiltrate with volume loss? aspiration. Sputum cx. Discuss with ID Dr. Ortiz, will place on broad-spectrum antibiotics with Zosyn 06/27: Tmax 99.6 The patient was emergently reintubated yesterday, overnight no increasing ventilatory requirements were noted. The patient underwent a bronchoscopy with BAL this a.m., cultures were sent. Plan for PEG placement today. 06/28: Tmax 98.4 The patient underwent PEG placement yesterday, will resume tube feedings today. Mucomyst was initiated yesterday status post bronchial noted mucous plugs, with thick tenacious secretions. Will tentatively plan for tracheostomy next week, if unable to wean, and increasing ventilatory requirements. 06/29: She was noted to have a drop in hemoglobin last night, and received 2 units of packed red blood cells. Hemoccult has been ordered stat CBC to be followed up. No obvious signs of bleeding noted. 06/30: Hgb stable. No change in neuro status. will attempt CPAP trials. Palliative medicine, Dr. Venegas to schedule goals of care now with reintubation. 07/01: Remains encephalopathic. Hemoglobin stable at 10.0. No acute changes overnight. Discussion with palliative care team and , he would like aggressive measures/treatments to continue to include tracheostomy. General surgery has been consulted. 07/02: Afebrile. No acute changes overnight. Patient was evaluated by general surgery plans for tracheostomy in the next few days with coordination. 07/03: Afebrile. The patient was underwent percutaneous tracheostomy at bedside. Chest x-ray is pending. Objective Vital Signs Date Time Temp Pulse Resp B/P Pulse Ox O2 Delivery O2 Flow Rate FiO2 07/03/16 11:13 100 100 07/03/16 10:00 108 07/03/16 08:00 99.5 16 150/98 07/03/16 08:00 Mechanical Ventilator Intake and Output 07/02/16 07/02/16 07/02/16 07:59 15:59 23:59 Intake Total 488 ml 1466 ml Output Total 250 ml 735 ml Balance 238 ml 731 ml Result Diagram: 07/03/16 0400 07/03/16 0400 Imaging Last Impressions Chest X-Ray 06/27/16 0000 Signed Impressions: Service Date/Time: Monday, June 27, 2016 11:11 - CONCLUSION: Persistent airspace opacity at the right lung base. No pneumothorax is visualized. Reginaldo Potts MD Abdomen X-Ray 06/26/16 0000 Signed Impressions: Service Date/Time: June 13:08 - CONCLUSION: 1. Nasogastric tube in good position. Benign-appearing bowel gas pattern. Jd Underwood MD Abdomen/Pelvis CT 06/17/16 0000 Signed Impressions: Service Date/Time: Friday, June 17, 2016 04:12 - CONCLUSION: 1. New bibasilar atelectasis. 2. There is some mild dilatation of the small bowel. There is a mild to moderate distention of the colon down to the rectum suggestive of a diffuse adynamic ileus. No definite mechanical obstruction is seen. 3. Otherwise, no other significant changes compared to the prior study. Andi Luna MD Brain MRI 06/15/16 0000 Signed Impressions: Service Date/Time: Wednesday, June 15, 2016 09:10 - CONCLUSION: No acute abnormality seen. 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 Reginaldo Cain MD Head Magnetic Resonance Angiography 06/14/16 0000 Signed Impressions: Service Date/Time: Tuesday, June 14, 2016 18:23 - CONCLUSION: No evidence of vessel truncation or aneurysm. Simone Graham MD Liver Ultrasound 06/13/16 0000 Signed Impressions: Service Date/Time: Monday, June 13, 2016 09:42 - CONCLUSION: 1. Small amount free fluid identified medial to the lower pole of the right kidney. 2. Slight increased hepatic echotexture suggesting some degree of fatty infiltration. 3. Please note the body and tail of the pancreas are obscured by overlying bowel gas. The head neck and uncinate process are sonographically intact. Mauro Leslie MD Head CT 06/12/[id number] Signed Impressions: Service Date/Time: May 21:37 - CONCLUSION: Unremarkable study. Jose Martinez MD Renal Ultrasound 06/12/16 Signed Impressions: Service Date/Time: May 23:51 - CONCLUSION: 1. Mild pelvocaliectasis on the right. No hydronephrosis involving either kidney. Simone Woody Jr., MD Chest CT 06/12/16 Signed Impressions: Service Date/Time: May 21:39 - CONCLUSION: Right upper lobe parenchymal process may represent pneumonia, however follow up is suggested with repeat noncontrast chest CT in 2-4 weeksafter appropriate clinical therapy. Jose Martinez MD Last Impressions Chest X-Ray 06/27/16 Signed Impressions: Service Date/Time: Monday, June 27, 2016 11:11 - CONCLUSION: Persistent airspace opacity at the right lung base. No pneumothorax is visualized. Reginaldo Potts MD Abdomen X-Ray 06/26/16 Signed Impressions: Service Date/Time: June 13:08 - CONCLUSION: 1. Nasogastric tube in good position. Benign-appearing bowel gas pattern. Jd Underwood MD Abdomen/Pelvis CT 06/17/16 Signed Impressions: Service Date/Time: Friday, June 17, 2016 04:12 - CONCLUSION: 1. New bibasilar atelectasis. 2. There is some mild dilatation of the small bowel. There is a mild to moderate distention of the colon down to the rectum suggestive of a diffuse adynamic ileus. No definite mechanical obstruction is seen. 3. Otherwise, no other significant changes compared to the prior study. Andi J. Siragusa, MD Brain MRI 06/15/16 Signed Impressions: Service Date/Time: Wednesday, June 15, 2016 09:10 - CONCLUSION: No acute abnormality seen. 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 Reginaldo Cain MD Head Magnetic Resonance Angiography 06/14/16 Signed Impressions: Service Date/Time: Tuesday, June 14, 2016 18:23 - CONCLUSION: No evidence of vessel truncation or aneurysm. Simone Graham MD Liver Ultrasound 06/13/16 Signed Impressions: Service Date/Time: Monday, June 13, 2016 09:42 - CONCLUSION: 1. Small amount free fluid identified medial to the lower pole of the right kidney. 2. Slight increased hepatic echotexture suggesting some degree of fatty infiltration. 3. Please note the body and tail of the pancreas are obscured by overlying bowel gas. The head neck and uncinate process are sonographically intact. Mauro Leslie MD Head CT [id number]/12/[id number] Signed Impressions: Service Date/Time: May 21:37 - CONCLUSION: Unremarkable study. Jose Martinez MD Renal Ultrasound 06/12/16 Signed Impressions: Service Date/Time: May 23:51 - CONCLUSION: 1. Mild pelvocaliectasis on the right. No hydronephrosis involving either kidney. Simone Woody Jr., MD Chest CT 06/12/16 Signed Impressions: Service Date/Time: May 21:39 - CONCLUSION: Right upper lobe parenchymal process may represent pneumonia, however follow up is suggested with repeat noncontrast chest CT in 2-4 weeksafter appropriate clinical therapy. Jose Martinez MD Last Impressions Abdomen/Pelvis CT 06/17/16 Signed Impressions: Service Date/Time: Friday, June 17, 2016 04:12 - CONCLUSION: 1. New bibasilar atelectasis. 2. There is some mild dilatation of the small bowel. There is a mild to moderate distention of the colon down to the rectum suggestive of a diffuse adynamic ileus. No definite mechanical obstruction is seen. 3. Otherwise, no other significant changes compared to the prior study. Andi Luna MD Chest X-Ray 06/16/16 Signed Impressions: Service Date/Time: Thursday, June 16, 2016 04:51 - CONCLUSION: Right basilar density likely atelectasis.. Chadd Kahn MD Abdomen X-Ray 06/16/16 Signed Impressions: Service Date/Time: Thursday, June 16, 2016 17:15 - CONCLUSION: 1. Nonspecific bowel gas pattern which may represent a mild ileus or gastroenteritis. Rico Pedraza MD Brain MRI 06/15/16 Signed Impressions: Service Date/Time: Wednesday, June 15, 2016 09:10 - CONCLUSION: No acute abnormality seen. 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 Reginaldo Cain MD Head Magnetic Resonance Angiography 06/14/16 Signed Impressions: Service Date/Time: Tuesday, June 14, 2016 18:23 - CONCLUSION: No evidence of vessel truncation or aneurysm. Simone Graham MD Liver Ultrasound 06/13/16 Signed Impressions: Service Date/Time: Monday, June 13, 2016 09:42 - CONCLUSION: 1. Small amount free fluid identified medial to the lower pole of the right kidney. 2. Slight increased hepatic echotexture suggesting some degree of fatty infiltration. 3. Please note the body and tail of the pancreas are obscured by overlying bowel gas. The head neck and uncinate process are sonographically intact. Mauro Leslie MD Head CT 06/12/16 1657 Signed Impressions: Service Date/Time: May 21:37 - CONCLUSION: Unremarkable study. Jose Martinez MD Renal Ultrasound 06/12/16 Signed Impressions: Service Date/Time: May 23:51 - CONCLUSION: 1. Mild pelvocaliectasis on the right. No hydronephrosis involving either kidney. Simone Woody Jr., MD Chest CT 06/12/16 Signed Impressions: Service Date/Time: May 21:39 - CONCLUSION: Right upper lobe parenchymal process may represent pneumonia, however follow up is suggested with repeat noncontrast chest CT in 2-4 weeksafter appropriate clinical therapy. Jose Martinez MD Objective Remarks GENERAL: Elderly woman unresponsive, intubated and sedated SKIN: Warm and dry. HEAD: Normocephalic. EYES: Pallor present, No scleral icterus. No injection or drainage. NECK: Supple, trachea midline. Orotracheally intubated CARDIOVASCULAR: Tachycardic rate and rhythm without murmurs, gallops, or rubs. RESPIRATORY: Mechanical ventilation Breath sounds diminished B/L bases. No wheezing noted GASTROINTESTINAL: Abdomen soft, non-tender, nondistended. Noted PEG in situ MUSCULOSKELETAL: No cyanosis, or edema. EXTREMITIES: No clubbing cyanosis or edema NEURO: Eyes are open, but patient is unresponsive, no response to sternal rub. Urinary Catheter: Yes A/P Assessment and Plan ASSESSMENT: Acute hypoxemic respiratory failure Probable aspiration/HCAP with R volume loss Encephalopathy SIRS/sepsis UTI Staph aureus pneumonia Acute kidney injury Rhabdo Hypernatremia Hypokalemia Anemia Lactic acidemia Leukocytosis- resolved Elevated LFT PLAN: Neuro: Emergently intubated today 06/26/16. Placed on propofol for sedation for ventilator synchrony CT brain: No acute findings. UDS+ +Benzos MRA brain 06/14- Unremarkable. s/p LP showed clear CSF and 15 WBC. EEG: Bihemispheric slowing, small sharp waves b/l Neuro is following- Dr. Boggs, On Keppra 500mg Q12 Pulm: Emergently intubated and placed on mechanical ventilation for acute hypoxemic respiratory failure on 06/26/16 Extubated 06/25, progressive hypoxia, on NRB prior to intubation. CXR RLL infiltrate with some volume loss Broad-spectrum antibiotics to cover for aspiration (Zosyn). Bronchodilators, ICU vent bundle. Thick tenacious secretions noted on bronchoscopy, Mucomyst added to medication regimen 3 days 06/27-Bronchoscopy with BAL cultures sent Tentative plan for tracheostomy secondary to prolonged mechanical ventilation, and failure to wean Plans for tracheostomy this week CV: Monitor HR and BP keep MAP>65mmHg. Initiated diuresis with Lasix on 06/24 to mobilize fluid PRN : Monitor renal function, I/O's, avoid nephrotoxins. Electrolytes replacement per protocol. Renal US: No hydronephrosis. Renal is following- Dr. Corral GI/liver: On Pepcid 20meq IV qhs, tube feeds with Glucerna in 24 hours Monitor LFT's ( trending down), US liver: Fatty liver. Elevated urinary copper - GI is following. CT abdomen/pelvis 06/17- findings suggestive of adynamic ileus. No mechanical obstruction. On Reglan 5mg Iv q8 PRN, Miralax, Lactulose 06/27 PEG placement ID: Had been off all antibiotics. 06/26 Placed on IV Zosyn, Vanc due Acute respiratory decompensation and intubation, probable aspiration (Initial Abx switched from Zyvox,Zosyn to Rocephin on 06/19, had been off all ABX ) Pertinent cultures: 06/12 Urine cx: E.coli 06/12 BC: No growth 06/12 CSG: NGTD 06/15 urine: E coli, sputum: MSSA 06/26: Blood sputum and urine cultures sent pending Antifungal cream added to medication regimen per general surgery, anterior and lateral neck areas Heme: Thrombocytopenia-resolved Anemia Monitor CBC, and coags. Hep plt ab negative. 06/28-Transfused 2 units of PRBCs Endo: SSI for glycemic control, TSH level: 2.5 GI Prophylaxis with Pepcid DVT prophylaxis with SCD's, not on chemical DVT prophylaxis 2nd to thrombocytopenia Palliative care Dr. Venegas, following to assist with deciding goals of therapy. Patient's wishes to continue full CODE STATUS at this time, and continued aggressive treatment/therapies. Dispo: Level 3 I discussed with PAID INTERN at bedside Physician Stacy Reeves MD July 03, 2016 11:18
--- NOTE | 2016-07-03 12:05 | RADRPT ---
EXAM DATE/TIME: 07/03/2016 11:25 [facility] COMPARISON: CHEST SINGLE AP, June 27, 2016, 11:11. INDICATIONS : Post tracheostomy placement. MEDICAL HISTORY : Stroke. SURGICAL HISTORY : Hysterectomy. ENCOUNTER: Initial ACUITY: 2 weeks PAIN SCORE: Non-responsive. LOCATION: Bilateral chest FINDINGS: A single view of the chest demonstrates tracheostomy in satisfactory position. Left central line in s uperior vena cava. Mild basilar opacity on the right improved from June 27. CONCLUSION: 1. Improved right basilar airspace disease. No new infiltrate. Tracheostomy in satisfactory position without pneumothorax. Farhad Armenta MD on July 03, 2016 at 12:03 Board Certified Radiologist. This report was verified electronically.
[2016-07-03] MEDS: ACETAMINOPHEN 1000 MG/100 ML VIAL IV SCH ×2 (16:59→21:44)
[2016-07-03] MEDS: FAMOTIDINE 20 MG/2 ML VIAL IV PUSH SCH (19:54)
[2016-07-04] VITALS (18 sets, daily range): BP systolic 151–164; BP diastolic 94–105; PULSE 92–115; RESP 16–20; TEMP 99.5–99.8; O2SAT 100
[2016-07-04] MEDS: CHLORHEXIDINE GLUCONATE 2 % 1 PACK (2 CLOTHS) TOP SCH (03:44)
[2016-07-04] MEDS: ACETAMINOPHEN 1000 MG/100 ML VIAL IV SCH ×2 (03:48→10:41)
[2016-07-04 04:55] LABS: HEMATOCRIT 33.5 % (35.0-46.0); MEAN CELL VOLUME 81.8 FL (80.0-100.0); MEAN CORPUSCULAR HEMOGLOBIN 26.3 PG (27.0-34.0); MEAN CORPUSCULAR HGB CONC 32.2 % (32.0-36.0); PLATELET COUNT 333 TH/MM3 (150-450); RED CELL DISTRIBUTION WIDTH 17.3 % (11.6-17.2); REVIEW FLAG FINAL
[2016-07-04 05:20] LABS: BICARBONATE 28.3 MEQ/L (21.0-32.0); MAGNESIUM 2.2 MG/DL (1.5-2.5); POTASSIUM 3.3 MEQ/L (3.5-5.1)
--- NOTE | 2016-07-04 05:33 | RADRPT ---
EXAM DATE/TIME: 07/04/2016 03:01 [facility] COMPARISON: CHEST SINGLE AP, July 03, 2016, 11:25. INDICATIONS : Shortness of breath. MEDICAL HISTORY : Stroke. SURGICAL HISTORY : None. ENCOUNTER: Subsequent ACUITY: 3 weeks PAIN SCORE: Non-responsive. LOCATION: Bilateral chest FINDINGS: The tracheostomy tube remains in place. There is no pneumothorax. There is a mild infiltrate in the r ight lung base suggestive of atelectasis. This is mildly increased compared to the prior study. The l eft lung remains clear and well-aerated. No definite pleural effusions. The heart size is stable. CONCLUSION: Mild increasing atelectasis in the right lung base. Andi Luna MD on July 04, 2016 at 5:31 Board Certified Radiologist. This report was verified electronically.
[2016-07-04] MEDS: POTASSIUM CHLOR 40 MEQ PREMIX 100 ML IV PRN (05:55)
[2016-07-04] MEDS: NYSTATIN 100,000 U/GM PWD 15 GM BTL TOPICAL SCH ×2 (06:00→15:18)
--- NOTE | 2016-07-04 08:36 | HHI.CCPN ---
Subjective Remarks/Hospital Course 56-year-old female brought in by EMS emergently as altered mental status, hypoxia and temperature 104. Patient has a history of CVA many years ago. Per caregiver she didn't feel well since yesterday and wasn't taking any of medications including baclofen. Patient was unable to communicate due to her altered mental status. As per EMS not much history was available from the family but she has history of CVA as baseline but communicates. In the emergency department patient's oxygen saturation was low 70s upon EMS arrival. They had her on oxygen via nonrebreather and sats of 93%. GCS was 6 and she was intubated by ER attending for an airway protection. 06/13 Patient is sedated with Versed and on Bicarb drip. Renal function is improving with Cr: 2.12 from 3.19 UO: 1350ml since yesterday. Afebrile. 06/14 Patient remains sedated and intubated. Afebrile. Renal function continue to improve with Cr: 1.18 today from 1.53. 06/15 No acute events overnight. Off sedation remains intubated. Patient tolerated CPAP all day yesterday. MRA brain last night is unremarkable. T:99.9 06/16 Patient remains intubated off sedation. Afebrile. Tolerated CPAP all day yesterday remains encephalopathic. 06/17 No acute events overnight. Patient is able to open her eyes but does not follow commands. T: 100.1 last night. 06/18: Remains encephalopathic, orally intubated on mechanical ventilation. 06/19: Remains encephalopathic, orally intubated on mechanical ventilation. Daily C Pap trials ongoing. 06/20: Remains encephalopathic, orally intubated on mechanical ventilation. Daily C Pap trials. Tube feeds resumed. 06/21: More awake however not following commands. Remains orally intubated on mechanical ventilation. Tolerating tube feeds. Daily C Pap trials ongoing. 06/22: Encephalopathic though more awake, arousable. Not following commands. Remains orally intubated on mechanical ventilation. Tolerating tube feeds. Daily C Pap trials. 06/23: Awake, not following commands. Remains orally intubated on mechanical ventilation. Failing C Pap trials. Tolerating tube feeds. 06/24: Opening eyes, blinks on command. Remains orally intubated on mechanical ventilation. Tolerating tube feeds. Gets tachypneic with low volumes on dropping pressure-support at C Pap trials. We'll initiate diuresis as patient isn't significantly positive fluid balance since admission due to fluids administered for sepsis which now appears to be under control. 06/25: Awake, appears to focus. Extubated today following C Pap trial. Continue diuresis. 06/26: CCM reconsult note. Patient was extubated yesterday 06/25 and apparently was doing well initially. Overnight was placed on a 100% percent nonrebreather. I was called to the bedside emergently by Denny PATINO, today around 12.30 pm, patient was more unresponsive and hypoxemic on 100% nonrebreather. On my evaluation patient's eyes were open but nonresponsive, shallow breathing. Oxygen saturation 80% on 100 percent nonrebreather. Emergently intubated and placed on mechanical ventilation. Moderate amount of white secretions at glottic opening. CXR shows RLL infiltrate with volume loss? aspiration. Sputum cx. Discuss with ID Dr. Ortiz, will place on broad-spectrum antibiotics with Zosyn 06/27: Tmax 99.6 The patient was emergently reintubated yesterday, overnight no increasing ventilatory requirements were noted. The patient underwent a bronchoscopy with BAL this a.m., cultures were sent. Plan for PEG placement today. 06/28: Tmax 98.4 The patient underwent PEG placement yesterday, will resume tube feedings today. Mucomyst was initiated yesterday status post bronchial noted mucous plugs, with thick tenacious secretions. Will tentatively plan for tracheostomy next week, if unable to wean, and increasing ventilatory requirements. 06/29: She was noted to have a drop in hemoglobin last night, and received 2 units of packed red blood cells. Hemoccult has been ordered stat CBC to be followed up. No obvious signs of bleeding noted. 06/30: Hgb stable. No change in neuro status. will attempt CPAP trials. Palliative medicine, Dr. Venegas to schedule goals of care now with reintubation. 07/01: Remains encephalopathic. Hemoglobin stable at 10.0. No acute changes overnight. Discussion with palliative care team and , he would like aggressive measures/treatments to continue to include tracheostomy. General surgery has been consulted. 07/02: Afebrile. No acute changes overnight. Patient was evaluated by general surgery plans for tracheostomy in the next few days with coordination. 07/03: Afebrile. The patient was underwent percutaneous tracheostomy at bedside. Chest x-ray is pending. 07/04 No acute events overnight. s/p trach yesterday. Tolerating tube feeds. Objective Vital Signs Date Time Temp Pulse Resp B/P Pulse Ox O2 Delivery O2 Flow Rate FiO2 07/04/16 08:07 100 35 07/04/16 06:00 107 07/04/16 04:52 16 07/04/16 00:00 153/100 07/03/16 16:00 100.2 07/03/16 11:13 Mechanical Ventilator Trach Collar Intake and Output 07/03/16 07/03/16 07/04/16 08:00 16:00 00:00 Intake Total 70 ml 147 ml 352 ml Output Total 351 ml 350 ml 250 ml Balance -281 ml -203 ml 102 ml Result Diagram: 07/04/16 0345 07/04/16 0345 Other Results Laboratory Tests Test 07/04/16 03:45 White Blood Count 8.0 TH/MM3 Red Blood Count 4.10 MIL/MM3 Hemoglobin 10.8 GM/DL Hematocrit 33.5 % Mean Corpuscular Volume 81.8 FL Mean Corpuscular Hemoglobin 26.3 PG Mean Corpuscular Hemoglobin 32.2 % Concent Red Cell Distribution Width 17.3 % Platelet Count 333 TH/MM3 Mean Platelet Volume 9.0 FL Sodium Level 142 MEQ/L Potassium Level 3.3 MEQ/L Chloride Level 106 MEQ/L Carbon Dioxide Level 28.3 MEQ/L Anion Gap 8 MEQ/L Blood Urea Nitrogen 9 MG/DL Creatinine 0.46 MG/DL Estimat Glomerular Filtration 171 ML/MIN Rate Random Glucose 93 MG/DL Calcium Level 8.4 MG/DL Phosphorus Level 3.4 MG/DL Magnesium Level 2.2 MG/DL Imaging Last Impressions Chest X-Ray 07/04/16 0600 Signed Impressions: Service Date/Time: Monday, July 04, 2016 03:01 - CONCLUSION: Mild increasing atelectasis in the right lung base. Andi Luna MD Abdomen X-Ray 06/26/16 0000 Signed Impressions: Service Date/Time: June 13:08 - CONCLUSION: 1. Nasogastric tube in good position. Benign-appearing bowel gas pattern. Jd Underwood MD Abdomen/Pelvis CT 06/17/16 Signed Impressions: Service Date/Time: Friday, June 17, 2016 04:12 - CONCLUSION: 1. New bibasilar atelectasis. 2. There is some mild dilatation of the small bowel. There is a mild to moderate distention of the colon down to the rectum suggestive of a diffuse adynamic ileus. No definite mechanical obstruction is seen. 3. Otherwise, no other significant changes compared to the prior study. Andi Luna MD Brain MRI 06/15/16 Signed Impressions: Service Date/Time: Wednesday, June 15, 2016 09:10 - CONCLUSION: No acute abnormality seen. 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 Reginaldo Cain MD Head Magnetic Resonance Angiography 06/14/16 Signed Impressions: Service Date/Time: Tuesday, June 14, 2016 18:23 - CONCLUSION: No evidence of vessel truncation or aneurysm. Simone Graham MD Liver Ultrasound 06/13/16 Signed Impressions: Service Date/Time: Monday, June 13, 2016 09:42 - CONCLUSION: 1. Small amount free fluid identified medial to the lower pole of the right kidney. 2. Slight increased hepatic echotexture suggesting some degree of fatty infiltration. 3. Please note the body and tail of the pancreas are obscured by overlying bowel gas. The head neck and uncinate process are sonographically intact. Mauro Leslie MD Head CT 06/12/16 1657 Signed Impressions: Service Date/Time: May 21:37 - CONCLUSION: Unremarkable study. Jose Martinez MD Renal Ultrasound 06/12/16 Signed Impressions: Service Date/Time: May 23:51 - CONCLUSION: 1. Mild pelvocaliectasis on the right. No hydronephrosis involving either kidney. Simone Woody Jr., MD Chest CT 06/12/16 Signed Impressions: Service Date/Time: May 21:39 - CONCLUSION: Right upper lobe parenchymal process may represent pneumonia, however follow up is suggested with repeat noncontrast chest CT in 2-4 weeksafter appropriate clinical therapy. Jose Martinez MD Objective Remarks GENERAL: Elderly woman unresponsive on ventilator via trach. SKIN: Warm and dry. HEAD: Normocephalic. EYES: Pallor present, No scleral icterus. No injection or drainage. NECK: Supple, trachea midline. Orotracheally intubated CARDIOVASCULAR: Tachycardic rate and rhythm without murmurs, gallops, or rubs. RESPIRATORY: Mechanical ventilation Breath sounds diminished B/L bases. No wheezing noted GASTROINTESTINAL: Abdomen soft, non-tender, nondistended. Noted PEG in situ MUSCULOSKELETAL: No cyanosis, or edema. EXTREMITIES: No clubbing cyanosis or edema NEURO: Eyes are open, but patient is unresponsive, no response to sternal rub. A/P Assessment and Plan ASSESSMENT: Acute hypoxemic respiratory failure Probable aspiration/HCAP with R volume loss Encephalopathy SIRS/sepsis UTI Staph aureus pneumonia Acute kidney injury Rhabdo Hypernatremia Hypokalemia Anemia Lactic acidemia Leukocytosis- resolved Elevated LFT PLAN: Neuro: On no sedation. Monitor neuro status and avoid any sedatives. CT brain: No acute findings. UDS+ +Benzos MRA brain 06/14- Unremarkable. s/p LP showed clear CSF and 15 WBC. EEG: Bihemispheric slowing, small sharp waves b/l Neuro is following- Dr. Boggs, On Keppra 500mg Q12 Pulm: Continue with vent support keep sat >92% Bronchodilators, ICU vent bundle. s/p perc trach placed 07/03 Pulm toliet, trach care, SBT daily as cherie. CV: Monitor HR and BP keep MAP>65mmHg. Increase Lopressor 50 mg Q12 for HR/BP control : Monitor renal function, I/O's, avoid nephrotoxins. Electrolytes replacement per protocol. Renal US: No hydronephrosis. Renal is following- Dr. Corral Will need K replacement today GI/liver: On Pepcid 20meq IV qhs, tube feeds with Glucerna i1.5@45ml/hr Monitor LFT's ( trending down), US liver: Fatty liver. Elevated urinary copper - GI is following. CT abdomen/pelvis 06/17- findings suggestive of adynamic ileus. No mechanical obstruction. On Reglan 5mg Iv q8 PRN, Miralax, Lactulose 5/5 PEG placement ID: - Off abx monitor for signs of infections ( Fever, WBC) Pertinent cultures: 06/12 Urine cx: E.coli 06/12 BC: No growth 06/12 CSG: NGTD 06/15 urine: E coli, sputum: MSSA 06/26: Blood sputum and urine cultures sent pending Antifungal cream added to medication regimen per general surgery, anterior and lateral neck areas Heme: Thrombocytopenia-resolved Anemia Monitor CBC, and coags. Hep plt ab negative. 06/28-Transfused 2 units of PRBCs Endo: SSI for glycemic control, TSH level: 2.5 GI Prophylaxis with Pepcid DVT prophylaxis with SCD's, place on Heparin SQ ( thrombocytopenia resolved) Palliative care Dr. Venegas, following to assist with deciding goals of therapy. Patient's wishes to continue full CODE STATUS at this time, and continued aggressive treatment/therapies. Dispo: Level 3 Jose Smith MD July 04, 2016 08:36
[2016-07-04] MEDS: POLYETHYLENE GLYCOL 17 GM PKG PO SCH (09:00)
[2016-07-04] MEDS: LACTULOSE SYRUP 20 GM/30 ML CUP PO SCH ×2 (09:00→20:12)
[2016-07-04] MEDS: CHLORHEXIDINE 0.12% (ORAL KIT) 15 ML CUP MT SCH ×2 (09:03→20:00)
[2016-07-04] MEDS: PREGABALIN 75 MG CAP PO SCH ×2 (09:04→20:12)
[2016-07-04] MEDS: BACLOFEN 10 MG TAB PO SCH ×3 (09:04→17:42)
[2016-07-04] MEDS: SODIUM CHLORIDE 0.9% FLUSH 10 ML FLUSH IV FLUSH SCH (09:04)
[2016-07-04] MEDS: levETIRAcetam INJ 500 MG in SODIUM CHLORIDE 0.9% INJ 100 ML IV SCH ×2 (09:04→20:12)
[2016-07-04] MEDS: HEPARIN SODIUM - SQ 10,000 UNITS/ML VIAL SQ SCH ×2 (10:42→20:12)
[2016-07-04] MEDS: METOPROLOL TARTRATE 50 MG TAB PO SCH ×2 (10:42→20:12)
--- NOTE | 2016-07-04 14:49 | MP ---
cc: PREET KIM MD DATE OF SURGERY: 07/03/2016. PREOPERATIVE DIAGNOSIS: Respiratory failure. POSTOPERATIVE DIAGNOSIS: Respiratory failure. OPERATIVE PROCEDURE PERFORMED: Percutaneous bronchoscopic-guided tracheostomy. SURGEON: Preet Kim MD. BRONCHOSCOPIST: Stacy Medellin MD. DESCRIPTION OF THE PROCEDURE IN DETAIL: The patient remained in her intensive care unit bed. The sedation and paralization was performed by the critical care physician. The anterior neck was prepped and draped in the usual sterile fashion. A surgical time-out was performed to verify correct patient, procedure and site. Local anesthetic was injected into the skin and subcutaneous tissue approximately two fingerbreadths above the sternal notch. A 1 cm transverse incision was created. The bronchoscope was inserted down the endotracheal tube and the endotracheal tube was withdrawn past the site of anticipated entry into the trachea. The large bore needle and catheter was inserted and the anterior trachea and the air bubbles were withdrawn. Position was also confirmed bronchoscopically. A wire fed easily and the tract was serially dilated with a punch dilator and the Blue Rhino dilator. The #8 tracheostomy tube was inserted and correct position could be visualized bronchoscopically. The balloon was inflated and the inner cannula placed. The bronchoscope was placed down the trache tube and position again confirmed. The vent apparatus was switched to the tracheostomy tube. There were adequate tidal volumes. The trache was sutured in place with 2-0 Prolene sutures in four quadrants. Sterile dressing was applied. The patient tolerated the procedure well and remained in her intensive care unit bed. Please see Dr. Medellin's dictation for the bronchoscopy portion. MD RUTH Wong/JCC /11:23 AM /1:38 PM
--- NOTE | 2016-07-04 17:57 | HHI.HCPN ---
Reason for visit a. To assist with evaluation and management of symptoms including: Dyspnea , encephalopathy b. To assist medical decision maker(s) with: better understanding of current medical conditions; weighing benefits/burdens of medical treatment options; making medical treatment decisions. . Subjective/Interval History INTERVAL NOTE: Patient underwent tracheostomy on 07/03/16. She tolerated the procedure well. No other significant change. Tolerated trach-CPAP for several hours today. Now back on vent. She opens her eyes and tracks but does not follow commands. Nursing pain level scores at ranging 3-6. Receiving about one dose of 50 mcg/ fentanyl per day. VSS afebrile. Bowels moving well. Urine output adequate. Tolerating tube feeds. CBC stable. Chemistry stable. CXR --> mild increasing atelectasis right lung base. No new micro. . . Family/friend interactions continues to desire aggressive care. . Advance Directives Living Will: Completed, but not made available Health Care Surrogate: Completed, but not made available Advance Directive Specifics Date completed: A living will was shown to our palliative care social security assessor -- Nicole Woody. Unfortunately, it did not have year/date on it and was missing appropriate witness signatures. It did show intent to designate her as the Health care surrogate. Without a year/date, it is difficult to know if the document was executed while the patient was fully capacitated or not. . Health Care Surrogate(s): A living will was shown to our palliative care social security assessor -- Nicole Woody. Unfortunately, it did not have year/date on it and was missing appropriate witness signatures. It did show intent to designate her as the Health care surrogate. Without a year/date, it is difficult to know if the document was executed while the patient was fully capacitated or not. . Documented care wishes: A living will was shown to our palliative care social security assessor -- Nicole Woody. Unfortunately, it did not have year/date on it and was missing appropriate witness signatures. It did show intent to designate her as the Health care surrogate. Without a year/date, it is difficult to know if the document was executed while the patient was fully capacitated or not. . . Objective Vital Signs Date Time Temp Pulse Resp B/P Pulse Ox O2 Delivery O2 Flow Rate FiO2 07/04/16 16:26 100 35 07/04/16 14:00 95 07/04/16 12:00 35 07/04/16 12:00 99.5 93 20 164/104 100 07/04/16 12:00 93 07/04/16 11:43 100 35 07/04/16 10:04 15 07/04/16 10:00 115 07/04/16 09:08 35 07/04/16 08:07 100 35 07/04/16 08:00 99.7 115 17 162/105 100 07/04/16 08:00 115 07/04/16 08:00 60 07/04/16 06:00 107 07/04/16 04:52 16 07/04/16 04:22 100 35 07/04/16 04:00 113 100 07/04/16 04:00 35 07/04/16 04:00 113 07/04/16 02:00 114 07/04/16 00:22 100 35 07/04/16 00:00 35 07/04/16 00:00 102 07/04/16 00:00 102 16 153/100 100 07/03/16 23:05 16 07/03/16 22:03 100 35 07/03/16 22:00 98 07/03/16 20:00 112 20 163/95 100 07/03/16 20:00 109 07/03/16 20:00 35 07/03/16 18:00 116 Intake & Output 07/04/16 07/04/16 07:00 19:00 Intake Total 616 ml Output Total 591 ml Balance 25 ml Intake Oral 0 ml IV Total 240 ml Tube Feeding 376 ml Output Urine Total 590 ml Stool Total 1 ml . Physical Exam CONSTITUTIONAL/GENERAL: This is an adequately nourished patient, in no apparent distress. She is s/p tracheostomy 07/03/16 in an MICU bed. She awakens to voice/exam and tracks but does not follow commands or make any attempt to respond. TUBES/LINES/DRAINS: Cortes catheter, IV; tracheostomy; PEG tube; right wrist splint; SCDs; PODUS boots. SKIN: No jaundice, rashes, or lesions. No wounds seen anteriorly. Skin temperature appropriate. Not diaphoretic. NECK: Trachea midline. Trach site with clean/dry dressing. CARDIOVASCULAR: Regular rhythm without murmurs, gallops, or rubs. No JVD. RESPIRATORY/CHEST: Symmetric, unlabored respirations. Lungs clear. GASTROINTESTINAL: Abdomen soft, non-tender, nondistended. No hepato-splenomegaly , or palpable masses. No guarding. Bowel sounds present. GENITOURINARY: Without palpable bladder distension. Cortes catheter in place. MUSCULOSKELETAL: Extremities without clubbing, cyanosis, or edema. No calf tenderness. No mottling. NEUROLOGICAL: Eyes are open, appears awake, but does not track and does not follow simple command. PSYCHIATRIC: No obvious anxiety, restlessness. Difficult to assess mood -- not communicating. . . Diagnostic Tests Laboratory Laboratory Tests Test 07/02/16 07/03/16 07/04/16 05:11 04:00 03:45 Prothrombin Time 14.0 SEC 14.6 SEC (9.8-11.6) (9.8-11.6) Prothromb Time International 1.3 RATIO 1.3 RATIO Ratio White Blood Count 9.0 TH/MM3 8.0 TH/MM3 (4.0-11.0) (4.0-11.0) Red Blood Count 4.02 MIL/MM3 4.10 MIL/MM3 (4.00-5.30) (4.00-5.30) Hemoglobin 10.5 GM/DL 10.8 GM/DL (11.6-15.3) (11.6-15.3) Hematocrit 32.9 % 33.5 % (35.0-46.0) (35.0-46.0) Mean Corpuscular Volume 81.8 FL 81.8 FL (80.0-100.0) (80.0-100.0) Mean Corpuscular Hemoglobin 26.2 PG 26.3 PG (27.0-34.0) (27.0-34.0) Mean Corpuscular Hemoglobin 32.0 % 32.2 % Concent (32.0-36.0) (32.0-36.0) Red Cell Distribution Width 17.6 % 17.3 % (11.6-17.2) (11.6-17.2) Platelet Count 353 TH/MM3 333 TH/MM3 (150-450) (150-450) Mean Platelet Volume 8.9 FL 9.0 FL (7.0-11.0) (7.0-11.0) Sodium Level 142 MEQ/L 142 MEQ/L (136-145) (136-145) Potassium Level 3.6 MEQ/L 3.3 MEQ/L (3.5-5.1) (3.5-5.1) Chloride Level 106 MEQ/L 106 MEQ/L (98-107) (98-107) Carbon Dioxide Level 27.6 MEQ/L 28.3 MEQ/L (21.0-32.0) (21.0-32.0) Anion Gap 8 MEQ/L (5-15) 8 MEQ/L (5-15) Blood Urea Nitrogen 9 MG/DL (7-18) 9 MG/DL (7-18) Creatinine 0.39 MG/DL 0.46 MG/DL (0.50-1.00) (0.50-1.00) Estimat Glomerular Filtration 206 ML/MIN 171 ML/MIN Rate (>89) (>89) Random Glucose 90 MG/DL 93 MG/DL (74-106) (74-106) Calcium Level 8.7 MG/DL 8.4 MG/DL (8.5-10.1) (8.5-10.1) Phosphorus Level 3.3 MG/DL 3.4 MG/DL (2.5-4.9) (2.5-4.9) Magnesium Level 2.1 MG/DL 2.2 MG/DL (1.5-2.5) (1.5-2.5) . Result Diagram: 07/04/16 0345 07/04/16 0345 Imaging Last Impressions Chest X-Ray 07/04/16 0600 Signed Impressions: Service Date/Time: Monday, July 04, 2016 03:01 - CONCLUSION: Mild increasing atelectasis in the right lung base. Andi Luna MD Abdomen X-Ray 06/26/16 0000 Signed Impressions: Service Date/Time: June 13:08 - CONCLUSION: 1. Nasogastric tube in good position. Benign-appearing bowel gas pattern. Jd Underwood MD Abdomen/Pelvis CT 06/17/16 0000 Signed Impressions: Service Date/Time: Friday, June 17, 2016 04:12 - CONCLUSION: 1. New bibasilar atelectasis. 2. There is some mild dilatation of the small bowel. There is a mild to moderate distention of the colon down to the rectum suggestive of a diffuse adynamic ileus. No definite mechanical obstruction is seen. 3. Otherwise, no other significant changes compared to the prior study. Andi Luna MD Brain MRI 06/15/16 0000 Signed Impressions: Service Date/Time: Wednesday, June 15, 2016 09:10 - CONCLUSION: No acute abnormality seen. 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 Reginaldo Cain MD Head Magnetic Resonance Angiography 06/14/16 0000 Signed Impressions: Service Date/Time: Tuesday, June 14, 2016 18:23 - CONCLUSION: No evidence of vessel truncation or aneurysm. Simone Graham MD Liver Ultrasound 06/13/16 0000 Signed Impressions: Service Date/Time: Monday, June 13, 2016 09:42 - CONCLUSION: 1. Small amount free fluid identified medial to the lower pole of the right kidney. 2. Slight increased hepatic echotexture suggesting some degree of fatty infiltration. 3. Please note the body and tail of the pancreas are obscured by overlying bowel gas. The head neck and uncinate process are sonographically intact. Mauro Leslie MD Head CT 06/12/16 1657 Signed Impressions: Service Date/Time: May 21:37 - CONCLUSION: Unremarkable study. Jose Martinez MD Renal Ultrasound 06/12/16 0000 Signed Impressions: Service Date/Time: May 23:51 - CONCLUSION: 1. Mild pelvocaliectasis on the right. No hydronephrosis involving either kidney. Simone Woody Jr., MD Chest CT 06/12/16 0000 Signed Impressions: Service Date/Time: May 21:39 - CONCLUSION: Right upper lobe parenchymal process may represent pneumonia, however follow up is suggested with repeat noncontrast chest CT in 2-4 weeksafter appropriate clinical therapy. Jose Martinez MD . Procedures INTUBATION 06/12/16 EXTUBATION 06/25/16 PEG TUBE 06/27/16 Bronchoscopy /BAL Tracheostomy 07/03/16 . Assessment and Plan Disease Oriented Problem List: (1) respiratory failure Comment: Failed extubation. . (2) UTI/sepsis Comment: Urine cultures have grown out E coli and Pseudomonas. . (3) history of ischemic strokes 2010, with right hemiplegia (4) Seizure Comment: Possible seizure seen on EEG. Started on levitiracetam by neurologist. . (5) encephalopathy, acute and chronic (6) hypertension (7) anemia Comment: appears to be from blood loss but unkown site. Hemoccult was negative. EGD showed gastritis but no active bleeding. . (8) Hypoalbuminemia (9) elevated LFTs, improving (10) hypernatremia, resolved (11) acute kidney injury, resolved Symptom Scale: (1) dyspnea Comment: Dyspnea currently being addressed with mechanical ventilation. . (2) encephalopathy 0-10 Scale: Unable to quantify Comment: Unable to follow commands. . Pertinent Non-Medical Issues Psychosocial: for 13 years, 2 daughters including a 12-year-old from previous relationships, worked as an [employer] for many years. Spiritual: Spirituality has been very important for the patient, and the patient 's does believe that she would appreciate plant security guard visits. Legal: The patient lacks capacity for decision making, and it is very unlikely that she will regain that capacity. Her is the healthcare proxy decision-maker, as there is no reported health care surrogacy form. Ethical issues impacting care: Important Contacts : Josiah Velazquez [phone] NOTE: The patient's wants to be the primary point of contact, as he does not want the patient's older daughter trying to make decisions about the patient's care. . Prognosis The patient's prognosis is quite poor. She was already a debilitated bedbound hemiplegic post stroke patient, at risk for infections and other complications, and now she is more debilitated and with respiratory failure and significant encephalopathy. She will be appropriate for hospice services if/when the patient's decides to transition to comfort care. . Code Status: Full Code Plan ==FULL CODE, confirmed by patient's 06/24/16 and again on 06/30/16 ==GOALS: The patient's reports he wants "everything possible done to save my 's life." He continues to desire re-intubation, ongoing blood transfusions as needed, and he approved tracheostomy. He is aware that "there will come a time when everything is worse and she won't get better" and he may want to "let her go naturally then." He does not see her near this point now, however. ==DECISION-MAKING: The patient lacks capacity for decision making, and it is very unlikely that she will regain that capacity. Her is the healthcare proxy decision-maker, as there is no reported health care surrogacy form. ==NOTE: The patient's wants to be the primary point of contact, as he does not want the patient's older daughter (Natasha) trying to make decisions about the patient's care. == Dyspnea: CXR continues to show infiltrate. Mucous plug and thick secretions were seen on bronchoscopy. Failed extubation and required tracheostomy which took place on 07/03/16. No further recommendations at this time. == Pain: Rare pain per nursing staff. Has order for PRN fentanyl which appears to be adequate. No further recommendation at this time. == Restlessness / agitation: Now controlled. == Disposition: Will probably need LTAC or SNF if she survives the hospitalization. Discharge venue will depend in large part on respiratory status-- if she weans post tracheostomy, will probably be appropriate for local SNF. If she is unable to wean, will probably need LTAC. == Palliative care will continue to work with , update him on the patient's medical condition, and continue to discuss goals of medical treatment as the clinical course evolves. . Attestation To help prompt me to consider important information that might be impacting today's encounter and assessment, information from prior notes written by myself or my colleagues may have been "brought forward" into today's note. My signature on this note, however, is an attestation that I personally performed the exam, history, and/or decision-making noted today, and, unless otherwise indicated, the interactions with patient, family, and staff as well as the review of records all occurred today. I also attest that the listed assessment and stated plan reflect my best clinical judgment today based on the combination of historical information, prior notes, and today's exam/ interactions. When time spent is documented, it refers only to time spent today by the signer, or if indicated, combined time spent today by collaborating physician/nurse practitioner. . Carson Venegas MD July 04, 2016 17:57
[2016-07-04] MEDS: FAMOTIDINE 20 MG/2 ML VIAL IV PUSH SCH (20:12)
[2016-07-05] VITALS (22 sets, daily range): BP systolic 133–171; BP diastolic 90–117; PULSE 100–143; RESP 16–24; TEMP 98.7–99.9; O2SAT 96–100
[2016-07-05] MEDS: CHLORHEXIDINE GLUCONATE 2 % 1 PACK (2 CLOTHS) TOP SCH (04:00)
[2016-07-05] MEDS: SODIUM CHLORIDE 0.9% FLUSH 10 ML FLUSH IV FLUSH SCH ×3 (04:02→20:43)
[2016-07-05] MEDS: NYSTATIN 100,000 U/GM PWD 15 GM BTL TOPICAL SCH ×4 (04:02→21:55)
[2016-07-05 04:53] LABS: AUTOMATED NEUTROPHIL # 5.2 TH/MM3 (1.8-7.7); BASOPHIL % 0.4 % (0.0-2.0); EOSINOPHIL # 0.1 TH/MM3 (0-0.4); EOSINOPHIL % 1.5 % (0.0-4.0); HEMATOCRIT 34.7 % (35.0-46.0); HEMO FLAGS DIFF FINAL; LYMPH % 19.6 % (9.0-44.0); LYMPHOCYTE # 1.5 TH/MM3 (1.0-4.8); MEAN CELL VOLUME 81.7 FL (80.0-100.0); MEAN CORPUSCULAR HEMOGLOBIN 26.2 PG (27.0-34.0); MONO % 9.3 % (0.0-8.0); NEUT % 69.2 % (16.0-70.0); PLATELET COUNT 320 TH/MM3 (150-450); RED BLOOD COUNT 4.24 MIL/MM3 (4.00-5.30); RED CELL DISTRIBUTION WIDTH 17.3 % (11.6-17.2); WHITE BLOOD COUNT 7.5 TH/MM3 (4.0-11.0)
[2016-07-05 05:06] LABS: BICARBONATE 28.2 MEQ/L (21.0-32.0); MAGNESIUM 2.2 MG/DL (1.5-2.5); POTASSIUM 3.8 MEQ/L (3.5-5.1)
[2016-07-05] MEDS: CHLORHEXIDINE 0.12% (ORAL KIT) 15 ML CUP MT SCH ×2 (08:30→20:40)
[2016-07-05] MEDS: levETIRAcetam INJ 500 MG in SODIUM CHLORIDE 0.9% INJ 100 ML IV SCH ×2 (08:34→21:54)
[2016-07-05] MEDS: LACTULOSE SYRUP 20 GM/30 ML CUP PO SCH ×2 (08:34→21:00)
[2016-07-05] MEDS: BACLOFEN 10 MG TAB PO SCH ×3 (08:34→17:00)
[2016-07-05] MEDS: PREGABALIN 75 MG CAP PO SCH ×2 (08:34→21:55)
[2016-07-05] MEDS: HEPARIN SODIUM - SQ 10,000 UNITS/ML VIAL SQ SCH ×2 (08:35→21:54)
[2016-07-05] MEDS: POLYETHYLENE GLYCOL 17 GM PKG PO SCH (08:35)
[2016-07-05] MEDS: METOPROLOL TARTRATE 50 MG TAB PO SCH ×2 (08:35→21:54)
--- NOTE | 2016-07-05 14:48 | HHI.CCPN ---
Subjective Remarks/Hospital Course 56-year-old female brought in by EMS emergently as altered mental status, hypoxia and temperature 104. Patient has a history of CVA many years ago. Per caregiver she didn't feel well since yesterday and wasn't taking any of medications including baclofen. Patient was unable to communicate due to her altered mental status. As per EMS not much history was available from the family but she has history of CVA as baseline but communicates. In the emergency department patient's oxygen saturation was low 70s upon EMS arrival. They had her on oxygen via nonrebreather and sats of 93%. GCS was 6 and she was intubated by ER attending for an airway protection. 06/13 Patient is sedated with Versed and on Bicarb drip. Renal function is improving with Cr: 2.12 from 3.19 UO: 1350ml since yesterday. Afebrile. 06/14 Patient remains sedated and intubated. Afebrile. Renal function continue to improve with Cr: 1.18 today from 1.53. 06/15 No acute events overnight. Off sedation remains intubated. Patient tolerated CPAP all day yesterday. MRA brain last night is unremarkable. T:99.9 06/16 Patient remains intubated off sedation. Afebrile. Tolerated CPAP all day yesterday remains encephalopathic. 06/17 No acute events overnight. Patient is able to open her eyes but does not follow commands. T: 100.1 last night. 06/18: Remains encephalopathic, orally intubated on mechanical ventilation. 06/19: Remains encephalopathic, orally intubated on mechanical ventilation. Daily C Pap trials ongoing. 06/20: Remains encephalopathic, orally intubated on mechanical ventilation. Daily C Pap trials. Tube feeds resumed. 06/21: More awake however not following commands. Remains orally intubated on mechanical ventilation. Tolerating tube feeds. Daily C Pap trials ongoing. 06/22: Encephalopathic though more awake, arousable. Not following commands. Remains orally intubated on mechanical ventilation. Tolerating tube feeds. Daily C Pap trials. 06/23: Awake, not following commands. Remains orally intubated on mechanical ventilation. Failing C Pap trials. Tolerating tube feeds. 06/24: Opening eyes, blinks on command. Remains orally intubated on mechanical ventilation. Tolerating tube feeds. Gets tachypneic with low volumes on dropping pressure-support at C Pap trials. We'll initiate diuresis as patient isn't significantly positive fluid balance since admission due to fluids administered for sepsis which now appears to be under control. 06/25: Awake, appears to focus. Extubated today following C Pap trial. Continue diuresis. 06/26: CCM reconsult note. Patient was extubated yesterday 06/25 and apparently was doing well initially. Overnight was placed on a 100% percent nonrebreather. I was called to the bedside emergently by Denny PATINO, today around 12.30 pm, patient was more unresponsive and hypoxemic on 100% nonrebreather. On my evaluation patient's eyes were open but nonresponsive, shallow breathing. Oxygen saturation 80% on 100 percent nonrebreather. Emergently intubated and placed on mechanical ventilation. Moderate amount of white secretions at glottic opening. CXR shows RLL infiltrate with volume loss? aspiration. Sputum cx. Discuss with ID Dr. Ortiz, will place on broad-spectrum antibiotics with Zosyn 06/27: Tmax 99.6 The patient was emergently reintubated yesterday, overnight no increasing ventilatory requirements were noted. The patient underwent a bronchoscopy with BAL this a.m., cultures were sent. Plan for PEG placement today. 06/28: Tmax 98.4 The patient underwent PEG placement yesterday, will resume tube feedings today. Mucomyst was initiated yesterday status post bronchial noted mucous plugs, with thick tenacious secretions. Will tentatively plan for tracheostomy next week, if unable to wean, and increasing ventilatory requirements. 06/29: She was noted to have a drop in hemoglobin last night, and received 2 units of packed red blood cells. Hemoccult has been ordered stat CBC to be followed up. No obvious signs of bleeding noted. 06/30: Hgb stable. No change in neuro status. will attempt CPAP trials. Palliative medicine, Dr. Venegas to schedule goals of care now with reintubation. 07/01: Remains encephalopathic. Hemoglobin stable at 10.0. No acute changes overnight. Discussion with palliative care team and , he would like aggressive measures/treatments to continue to include tracheostomy. General surgery has been consulted. 07/02: Afebrile. No acute changes overnight. Patient was evaluated by general surgery plans for tracheostomy in the next few days with coordination. 07/03: Afebrile. The patient was underwent percutaneous tracheostomy at bedside. Chest x-ray is pending. 07/04 No acute events overnight. s/p trach yesterday. Tolerating tube feeds. 07/05: Afebrile. The patient tolerated CPAP trials for 8 hours yesterday. He is on CPAP trials today. Objective Vital Signs Date Time Temp Pulse Resp B/P Pulse Ox O2 Delivery O2 Flow Rate FiO2 07/05/16 11:44 100 35 07/05/16 10:00 100 07/05/16 09:34 18 07/05/16 08:00 99.9 165/103 07/03/16 11:13 Mechanical Ventilator Trach Collar Intake and Output 07/04/16 07/04/16 07/04/16 07:59 15:59 23:59 Intake Total 354 ml 1336 ml Output Total 341 ml 1301 ml Balance 13 ml 35 ml Result Diagram: 07/05/16 0400 07/05/16 0400 Imaging Last Impressions Chest X-Ray 07/04/16 0600 Signed Impressions: Service Date/Time: Monday, July 04, 2016 03:01 - CONCLUSION: Mild increasing atelectasis in the right lung base. Andi Luna MD Abdomen X-Ray 06/26/16 0000 Signed Impressions: Service Date/Time: June 13:08 - CONCLUSION: 1. Nasogastric tube in good position. Benign-appearing bowel gas pattern. Jd Underwood MD Abdomen/Pelvis CT 06/17/16 0000 Signed Impressions: Service Date/Time: Friday, June 17, 2016 04:12 - CONCLUSION: 1. New bibasilar atelectasis. 2. There is some mild dilatation of the small bowel. There is a mild to moderate distention of the colon down to the rectum suggestive of a diffuse adynamic ileus. No definite mechanical obstruction is seen. 3. Otherwise, no other significant changes compared to the prior study. Andi Luna MD Brain MRI 06/15/16 0000 Signed Impressions: Service Date/Time: Wednesday, June 15, 2016 09:10 - CONCLUSION: No acute abnormality seen. 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 Reginaldo Cain MD Head Magnetic Resonance Angiography 06/14/16 0000 Signed Impressions: Service Date/Time: Tuesday, June 14, 2016 18:23 - CONCLUSION: No evidence of vessel truncation or aneurysm. Simone Graham MD Liver Ultrasound 06/13/16 0000 Signed Impressions: Service Date/Time: Monday, June 13, 2016 09:42 - CONCLUSION: 1. Small amount free fluid identified medial to the lower pole of the right kidney. 2. Slight increased hepatic echotexture suggesting some degree of fatty infiltration. 3. Please note the body and tail of the pancreas are obscured by overlying bowel gas. The head neck and uncinate process are sonographically intact. Mauro Leslie MD Head CT 06/12/16 165 Signed Impressions: Service Date/Time: May 21:37 - CONCLUSION: Unremarkable study. Jose Martinez MD Renal Ultrasound 06/12/16 0000 Signed Impressions: Service Date/Time: May 23:51 - CONCLUSION: 1. Mild pelvocaliectasis on the right. No hydronephrosis involving either kidney. Simone Woody Jr., MD Chest CT 06/12/16 0000 Signed Impressions: Service Date/Time: May 21:39 - CONCLUSION: Right upper lobe parenchymal process may represent pneumonia, however follow up is suggested with repeat noncontrast chest CT in 2-4 weeksafter appropriate clinical therapy. Jose Martinez MD Objective Remarks GENERAL: Elderly woman unresponsive on ventilator via trach. SKIN: Warm and dry. HEAD: Normocephalic. EYES: Pallor present, No scleral icterus. No injection or drainage. NECK: Supple, trachea midline. Orotracheally intubated CARDIOVASCULAR: Tachycardic rate and rhythm without murmurs, gallops, or rubs. RESPIRATORY: Mechanical ventilation Breath sounds diminished B/L bases. No wheezing noted GASTROINTESTINAL: Abdomen soft, non-tender, nondistended. Noted PEG in situ MUSCULOSKELETAL: No cyanosis, or edema. EXTREMITIES: No clubbing cyanosis or edema NEURO: Eyes are open, but patient is unresponsive, no response to sternal rub. A/P Assessment and Plan ASSESSMENT: Acute hypoxemic respiratory failure Probable aspiration/HCAP with R volume loss Encephalopathy SIRS/sepsis UTI Staph aureus pneumonia Acute kidney injury Rhabdo Hypernatremia Hypokalemia Anemia Lactic acidemia Leukocytosis- resolved Elevated LFT PLAN: Neuro: On no sedation. Monitor neuro status and avoid any sedatives. CT brain: No acute findings. UDS+ +Benzos MRA brain 06/14- Unremarkable. s/p LP showed clear CSF and 15 WBC. EEG: Bihemispheric slowing, small sharp waves b/l Neuro is following- Dr. Boggs, On Keppra 500mg Q12 Pulm: Continue with vent support keep sat >92% Bronchodilators, ICU vent bundle. s/p perc trach placed 07/03, 8.0 Shiley Pulm toliet, trach care, SBT daily as cherie. CV: Monitor HR and BP keep MAP>65mmHg. Increase Lopressor 50 mg Q12 for HR/BP control : Monitor renal function, I/O's, avoid nephrotoxins. Electrolytes replacement per protocol. Renal US: No hydronephrosis. Renal is following- Dr. Corral GI/liver: On Pepcid 20meq IV qhs, tube feeds with Glucerna i1.5@45ml/hr Monitor LFT's ( trending down), US liver: Fatty liver. Elevated urinary copper - GI is following. CT abdomen/pelvis 06/17- findings suggestive of adynamic ileus. No mechanical obstruction. On Reglan 5mg Iv q8 PRN, Miralax, Lactulose 06/27 PEG placement ID: - Off abx monitor for signs of infections ( Fever, WBC) Pertinent cultures: 06/12 Urine cx: E.coli 06/12 BC: No growth 06/12 CSG: NGTD 06/15 urine: E coli, sputum: MSSA 06/26: Blood sputum and urine cultures sent pending Antifungal cream added to medication regimen per general surgery, anterior and lateral neck areas Heme: Thrombocytopenia-resolved Anemia Monitor CBC, and coags. Hep plt ab negative. 06/28-Transfused 2 units of PRBCs Endo: SSI for glycemic control, TSH level: 2.5 GI Prophylaxis with Pepcid DVT prophylaxis with SCD's, place on Heparin SQ ( thrombocytopenia resolved) Palliative care Dr. Venegas, following to assist with deciding goals of therapy. Patient's wishes to continue full CODE STATUS at this time, and continued aggressive treatment/therapies. Case management pending LTAC placement Dispo: Level 3 Physician Stacy Reeves MD July 05, 2016 14:48
[2016-07-05] MEDS: hydrALAZINE HCL 20 MG/ML VIAL IV PUSH PRN (16:59)
[2016-07-05] MEDS: ACETAMINOPHEN 1000 MG/100 ML VIAL IV SCH (19:34)
[2016-07-05] MEDS: METOPROLOL TARTRATE 5 MG/5 ML VIAL IV PUSH PRN (20:39)
[2016-07-05] MEDS: FAMOTIDINE 20 MG/2 ML VIAL IV PUSH SCH (21:55)
[2016-07-06] VITALS (33 sets, daily range): BP systolic 103–168; BP diastolic 58–104; PULSE 100–134; RESP 16–32; TEMP 98.8–100.3; O2SAT 97–100
[2016-07-06] MEDS: hydrALAZINE HCL 20 MG/ML VIAL IV PUSH PRN (03:13)
[2016-07-06] MEDS: CHLORHEXIDINE GLUCONATE 2 % 1 PACK (2 CLOTHS) TOP SCH (03:30)
[2016-07-06 05:20] LABS: HEMATOCRIT 35.8 % (35.0-46.0); MEAN CELL VOLUME 82.9 FL (80.0-100.0); MEAN CORPUSCULAR HEMOGLOBIN 26.5 PG (27.0-34.0); PLATELET COUNT 330 TH/MM3 (150-450); RED BLOOD COUNT 4.32 MIL/MM3 (4.00-5.30); RED CELL DISTRIBUTION WIDTH 17.6 % (11.6-17.2); REVIEW FLAG FINAL
[2016-07-06 05:46] LABS: BICARBONATE 26.6 MEQ/L (21.0-32.0); MAGNESIUM 2.2 MG/DL (1.5-2.5); POTASSIUM 3.9 MEQ/L (3.5-5.1)
[2016-07-06] MEDS: ACETAMINOPHEN 1000 MG/100 ML VIAL IV SCH ×3 (05:49→11:26)
[2016-07-06] MEDS: NYSTATIN 100,000 U/GM PWD 15 GM BTL TOPICAL SCH ×3 (05:51→22:24)
[2016-07-06] MEDS: METOPROLOL TARTRATE 5 MG/5 ML VIAL IV PUSH PRN ×3 (06:27→20:08)
[2016-07-06] MEDS: CHLORHEXIDINE 0.12% (ORAL KIT) 15 ML CUP MT SCH ×2 (08:32→21:03)
[2016-07-06] MEDS: METOPROLOL TARTRATE 50 MG TAB PO SCH ×2 (08:34→21:04)
[2016-07-06] MEDS: HEPARIN SODIUM - SQ 10,000 UNITS/ML VIAL SQ SCH ×2 (08:34→21:04)
[2016-07-06] MEDS: POLYETHYLENE GLYCOL 17 GM PKG PO SCH ×2 (08:34→09:00)
[2016-07-06] MEDS: ALTEPLASE RECOMBINANT 2 MG VIAL INTRACATH PRN ×3 (08:34→11:26)
[2016-07-06] MEDS: PREGABALIN 75 MG CAP PO SCH ×2 (08:34→21:05)
[2016-07-06] MEDS: BACLOFEN 10 MG TAB PO SCH ×3 (08:34→18:34)
[2016-07-06] MEDS: LACTULOSE SYRUP 20 GM/30 ML CUP PO SCH ×3 (08:34→21:00)
[2016-07-06] MEDS: SODIUM CHLORIDE 0.9% FLUSH 10 ML FLUSH IV FLUSH SCH ×2 (08:35→20:07)
[2016-07-06] MEDS: levETIRAcetam INJ 500 MG in SODIUM CHLORIDE 0.9% INJ 100 ML IV SCH ×2 (08:35→21:04)
--- NOTE | 2016-07-06 13:35 | HHI.CCPN ---
Subjective Remarks/Hospital Course 56-year-old female brought in by EMS emergently as altered mental status, hypoxia and temperature 104. Patient has a history of CVA many years ago. Per caregiver she didn't feel well since yesterday and wasn't taking any of medications including baclofen. Patient was unable to communicate due to her altered mental status. As per EMS not much history was available from the family but she has history of CVA as baseline but communicates. In the emergency department patient's oxygen saturation was low 70s upon EMS arrival. They had her on oxygen via nonrebreather and sats of 93%. GCS was 6 and she was intubated by ER attending for an airway protection. 06/13 Patient is sedated with Versed and on Bicarb drip. Renal function is improving with Cr: 2.12 from 3.19 UO: 1350ml since yesterday. Afebrile. 06/14 Patient remains sedated and intubated. Afebrile. Renal function continue to improve with Cr: 1.18 today from 1.53. 06/15 No acute events overnight. Off sedation remains intubated. Patient tolerated CPAP all day yesterday. MRA brain last night is unremarkable. T:99.9 06/16 Patient remains intubated off sedation. Afebrile. Tolerated CPAP all day yesterday remains encephalopathic. 06/17 No acute events overnight. Patient is able to open her eyes but does not follow commands. T: 100.1 last night. 06/18: Remains encephalopathic, orally intubated on mechanical ventilation. 06/19: Remains encephalopathic, orally intubated on mechanical ventilation. Daily C Pap trials ongoing. 06/20: Remains encephalopathic, orally intubated on mechanical ventilation. Daily C Pap trials. Tube feeds resumed. 06/21: More awake however not following commands. Remains orally intubated on mechanical ventilation. Tolerating tube feeds. Daily C Pap trials ongoing. 06/22: Encephalopathic though more awake, arousable. Not following commands. Remains orally intubated on mechanical ventilation. Tolerating tube feeds. Daily C Pap trials. 06/23: Awake, not following commands. Remains orally intubated on mechanical ventilation. Failing C Pap trials. Tolerating tube feeds. 06/24: Opening eyes, blinks on command. Remains orally intubated on mechanical ventilation. Tolerating tube feeds. Gets tachypneic with low volumes on dropping pressure-support at C Pap trials. We'll initiate diuresis as patient isn't significantly positive fluid balance since admission due to fluids administered for sepsis which now appears to be under control. 06/25: Awake, appears to focus. Extubated today following C Pap trial. Continue diuresis. 06/26: CCM reconsult note. Patient was extubated yesterday 06/25 and apparently was doing well initially. Overnight was placed on a 100% percent nonrebreather. I was called to the bedside emergently by Denny PATINO, today around 12.30 pm, patient was more unresponsive and hypoxemic on 100% nonrebreather. On my evaluation patient's eyes were open but nonresponsive, shallow breathing. Oxygen saturation 80% on 100 percent nonrebreather. Emergently intubated and placed on mechanical ventilation. Moderate amount of white secretions at glottic opening. CXR shows RLL infiltrate with volume loss? aspiration. Sputum cx. Discuss with ID Dr. Ortiz, will place on broad-spectrum antibiotics with Zosyn 06/27: Tmax 99.6 The patient was emergently reintubated yesterday, overnight no increasing ventilatory requirements were noted. The patient underwent a bronchoscopy with BAL this a.m., cultures were sent. Plan for PEG placement today. 06/28: Tmax 98.4 The patient underwent PEG placement yesterday, will resume tube feedings today. Mucomyst was initiated yesterday status post bronchial noted mucous plugs, with thick tenacious secretions. Will tentatively plan for tracheostomy next week, if unable to wean, and increasing ventilatory requirements. 06/29: She was noted to have a drop in hemoglobin last night, and received 2 units of packed red blood cells. Hemoccult has been ordered stat CBC to be followed up. No obvious signs of bleeding noted. 06/30: Hgb stable. No change in neuro status. will attempt CPAP trials. Palliative medicine, Dr. Venegas to schedule goals of care now with reintubation. 07/01: Remains encephalopathic. Hemoglobin stable at 10.0. No acute changes overnight. Discussion with palliative care team and , he would like aggressive measures/treatments to continue to include tracheostomy. General surgery has been consulted. 07/02: Afebrile. No acute changes overnight. Patient was evaluated by general surgery plans for tracheostomy in the next few days with coordination. 07/03: Afebrile. The patient was underwent percutaneous tracheostomy at bedside. Chest x-ray is pending. 07/04 No acute events overnight. s/p trach yesterday. Tolerating tube feeds. 07/05: Afebrile. The patient tolerated CPAP trials for 8 hours yesterday. She is on CPAP trials today. 07/06: The patient tolerated CPAP trials for 10 hours yesterday. Normotensive. The patient continues have heart rate low 100's. PRN beta samina utilized during the night. Objective Vital Signs Date Time Temp Pulse Resp B/P Pulse Ox O2 Delivery O2 Flow Rate FiO2 07/06/16 11:58 100 35 07/06/16 10:00 105 07/06/16 09:38 20 07/06/16 08:00 100.3 126/67 07/05/16 20:00 Mechanical Ventilator Intake and Output 07/05/16 07/05/16 07/06/16 08:00 16:00 00:00 Intake Total 274 ml 556 ml 582 ml Output Total 400 ml 425 ml 275.0 ml Balance -126 ml 131 ml 307.0 ml Result Diagram: 07/06/16 0355 07/06/16 0355 Imaging Last Impressions Chest X-Ray 07/04/16 0600 Signed Impressions: Service Date/Time: Monday, July 04, 2016 03:01 - CONCLUSION: Mild increasing atelectasis in the right lung base. Andi Luna MD Abdomen X-Ray 06/26/16 0000 Signed Impressions: Service Date/Time: June 13:08 - CONCLUSION: 1. Nasogastric tube in good position. Benign-appearing bowel gas pattern. Jd Underwood MD Abdomen/Pelvis CT 06/17/16 0000 Signed Impressions: Service Date/Time: Friday, June 17, 2016 04:12 - CONCLUSION: 1. New bibasilar atelectasis. 2. There is some mild dilatation of the small bowel. There is a mild to moderate distention of the colon down to the rectum suggestive of a diffuse adynamic ileus. No definite mechanical obstruction is seen. 3. Otherwise, no other significant changes compared to the prior study. Andi Luna MD Brain MRI 4/23/17 0000 Signed Impressions: Service Date/Time: Wednesday, June 15, 2016 09:10 - CONCLUSION: No acute abnormality seen. 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 Reginaldo Cain MD Head Magnetic Resonance Angiography 06/14/16 0000 Signed Impressions: Service Date/Time: Tuesday, June 14, 2016 18:23 - CONCLUSION: No evidence of vessel truncation or aneurysm. Simone Graham MD Liver Ultrasound 06/13/16 0000 Signed Impressions: Service Date/Time: Monday, June 13, 2016 09:42 - CONCLUSION: 1. Small amount free fluid identified medial to the lower pole of the right kidney. 2. Slight increased hepatic echotexture suggesting some degree of fatty infiltration. 3. Please note the body and tail of the pancreas are obscured by overlying bowel gas. The head neck and uncinate process are sonographically intact. Mauro Leslie MD Head CT 06/12/16 1657 Signed Impressions: Service Date/Time: May 21:37 - CONCLUSION: Unremarkable study. Jose Martinez MD Renal Ultrasound 06/12/16 Signed Impressions: Service Date/Time: May 23:51 - CONCLUSION: 1. Mild pelvocaliectasis on the right. No hydronephrosis involving either kidney. Simone Woody Jr., MD Chest CT 06/12/16 0000 Signed Impressions: Service Date/Time: May 21:39 - CONCLUSION: Right upper lobe parenchymal process may represent pneumonia, however follow up is suggested with repeat noncontrast chest CT in 2-4 weeksafter appropriate clinical therapy. Jose Martinez MD Objective Remarks GENERAL: Elderly woman unresponsive on ventilator via trach. SKIN: Warm and dry. HEAD: Normocephalic. EYES: Pallor present, No scleral icterus. No injection or drainage. NECK: Supple, trachea midline. Orotracheally intubated CARDIOVASCULAR: Tachycardic rate and rhythm without murmurs, gallops, or rubs. RESPIRATORY: Mechanical ventilation Breath sounds diminished B/L bases. No wheezing noted GASTROINTESTINAL: Abdomen soft, non-tender, nondistended. Noted PEG in situ MUSCULOSKELETAL: No cyanosis, or edema. EXTREMITIES: No clubbing cyanosis or edema NEURO: Eyes are open, but patient is unresponsive, no response to sternal rub. A/P Assessment and Plan ASSESSMENT: Acute hypoxemic respiratory failure Probable aspiration/HCAP with R volume loss Encephalopathy SIRS/sepsis UTI Staph aureus pneumonia Acute kidney injury Rhabdo Hypernatremia Hypokalemia Anemia Lactic acidemia Leukocytosis- resolved Elevated LFT PLAN: Neuro: On no sedation. Monitor neuro status and avoid any sedatives. CT brain: No acute findings. UDS+ +Benzos MRA brain 06/14- Unremarkable. s/p LP showed clear CSF and 15 WBC. EEG: Bihemispheric slowing, small sharp waves b/l Neuro is following- Dr. Boggs, On Keppra 500mg Q12 Pulm: Continue with vent support keep sat >92% Bronchodilators, ICU vent bundle. s/p perc trach placed 07/03, 8.0 Shiley Pulm toliet, trach care, SBT daily as cherie. Continue CPAP trials CV: Monitor HR and BP keep MAP>65mmHg. Increase Lopressor 50 mg Q12 for HR/BP control : Monitor renal function, I/O's, avoid nephrotoxins. Electrolytes replacement per protocol. Renal US: No hydronephrosis. Renal is following- Dr. Corral GI/liver: On Pepcid 20meq IV qhs, tube feeds with Glucerna i1.5@45ml/hr Monitor LFT's ( trending down), US liver: Fatty liver. Elevated urinary copper - GI is following. CT abdomen/pelvis 06/17- findings suggestive of adynamic ileus. No mechanical obstruction. On Reglan 5mg Iv q8 PRN, Miralax, Lactulose 06/27 PEG placement ID: - Off abx monitor for signs of infections ( Fever, WBC) Pertinent cultures: 06/12 Urine cx: E.coli 06/12 BC: No growth 06/12 CSG: NGTD 06/15 urine: E coli, sputum: MSSA 06/26: Blood sputum and urine cultures sent pending Antifungal cream added to medication regimen per general surgery, anterior and lateral neck areas Heme: Thrombocytopenia-resolved Anemia Monitor CBC, and coags. Hep plt ab negative. 06/28-Transfused 2 units of PRBCs Endo: SSI for glycemic control, TSH level: 2.5 GI Prophylaxis with Pepcid DVT prophylaxis with SCD's, place on Heparin SQ ( thrombocytopenia resolved) Palliative care Dr. Venegas, following to assist with deciding goals of therapy. Patient's wishes to continue full CODE STATUS at this time, and continued aggressive treatment/therapies. Case management pending LTAC placement Dispo: Level 3 Physician Stacy Reeves MD July 06, 2016 13:35
[2016-07-06] MEDS: FAMOTIDINE 20 MG/2 ML VIAL IV PUSH SCH (21:04)
[2016-07-07] VITALS (32 sets, daily range): BP systolic 117–182; BP diastolic 65–110; PULSE 101–129; RESP 15–22; TEMP 98.2–99.8; O2SAT 97–100
[2016-07-07] MEDS: CHLORHEXIDINE GLUCONATE 2 % 1 PACK (2 CLOTHS) TOP SCH (00:13)
[2016-07-07 04:40] LABS: BICARBONATE 26.6 MEQ/L (21.0-32.0); MAGNESIUM 2.3 MG/DL (1.5-2.5); POTASSIUM 3.7 MEQ/L (3.5-5.1)
[2016-07-07] MEDS: hydrALAZINE HCL 20 MG/ML VIAL IV PUSH PRN (04:54)
[2016-07-07] MEDS: NYSTATIN 100,000 U/GM PWD 15 GM BTL TOPICAL SCH ×3 (04:55→21:34)
[2016-07-07] MEDS: METOPROLOL TARTRATE 5 MG/5 ML VIAL IV PUSH PRN (05:16)
[2016-07-07] MEDS: LACTULOSE SYRUP 20 GM/30 ML CUP PO SCH ×2 (08:15→20:18)
[2016-07-07] MEDS: levETIRAcetam INJ 500 MG in SODIUM CHLORIDE 0.9% INJ 100 ML IV SCH ×2 (08:15→20:17)
[2016-07-07] MEDS: BACLOFEN 10 MG TAB PO SCH ×3 (08:15→17:13)
[2016-07-07] MEDS: PREGABALIN 75 MG CAP PO SCH ×2 (08:15→20:17)
[2016-07-07] MEDS: SODIUM CHLORIDE 0.9% FLUSH 10 ML FLUSH IV FLUSH SCH ×2 (08:15→20:18)
[2016-07-07] MEDS: POLYETHYLENE GLYCOL 17 GM PKG PO SCH (08:16)
[2016-07-07] MEDS: HEPARIN SODIUM - SQ 10,000 UNITS/ML VIAL SQ SCH ×2 (08:16→20:17)
[2016-07-07] MEDS: METOPROLOL TARTRATE 50 MG TAB PO SCH ×2 (08:16→21:34)
[2016-07-07] MEDS: CHLORHEXIDINE 0.12% (ORAL KIT) 15 ML CUP MT SCH ×2 (08:17→20:00)
[2016-07-07] MEDS ORDERED: LABETALOL HCL 100 MG/20 ML VIAL ONE (13:39)
[2016-07-07] MEDS: SODIUM CHLOR 0.9% 1000 ML INJ 1,000 ML IV SCH (14:00)
[2016-07-07] MEDS ORDERED: LABETALOL HCL 100 MG/20 ML VIAL IV PUSH ONE (14:00)
[2016-07-07] MEDS: LABETALOL HCL 100 MG/20 ML VIAL IV PUSH PRN (17:12)
--- NOTE | 2016-07-07 17:53 | HHI.CCPN ---
Subjective Remarks/Hospital Course 56-year-old female brought in by EMS emergently as altered mental status, hypoxia and temperature 104. Patient has a history of CVA many years ago. Per caregiver she didn't feel well since yesterday and wasn't taking any of medications including baclofen. Patient was unable to communicate due to her altered mental status. As per EMS not much history was available from the family but she has history of CVA as baseline but communicates. In the emergency department patient's oxygen saturation was low 70s upon EMS arrival. They had her on oxygen via nonrebreather and sats of 93%. GCS was 6 and she was intubated by ER attending for an airway protection. 06/13 Patient is sedated with Versed and on Bicarb drip. Renal function is improving with Cr: 2.12 from 3.19 UO: 1350ml since yesterday. Afebrile. 06/14 Patient remains sedated and intubated. Afebrile. Renal function continue to improve with Cr: 1.18 today from 1.53. 06/15 No acute events overnight. Off sedation remains intubated. Patient tolerated CPAP all day yesterday. MRA brain last night is unremarkable. T:99.9 06/16 Patient remains intubated off sedation. Afebrile. Tolerated CPAP all day yesterday remains encephalopathic. 06/17 No acute events overnight. Patient is able to open her eyes but does not follow commands. T: 100.1 last night. 06/18: Remains encephalopathic, orally intubated on mechanical ventilation. 06/19: Remains encephalopathic, orally intubated on mechanical ventilation. Daily C Pap trials ongoing. 06/20: Remains encephalopathic, orally intubated on mechanical ventilation. Daily C Pap trials. Tube feeds resumed. 06/21: More awake however not following commands. Remains orally intubated on mechanical ventilation. Tolerating tube feeds. Daily C Pap trials ongoing. 06/22: Encephalopathic though more awake, arousable. Not following commands. Remains orally intubated on mechanical ventilation. Tolerating tube feeds. Daily C Pap trials. 06/23: Awake, not following commands. Remains orally intubated on mechanical ventilation. Failing C Pap trials. Tolerating tube feeds. 06/24: Opening eyes, blinks on command. Remains orally intubated on mechanical ventilation. Tolerating tube feeds. Gets tachypneic with low volumes on dropping pressure-support at C Pap trials. We'll initiate diuresis as patient isn't significantly positive fluid balance since admission due to fluids administered for sepsis which now appears to be under control. 06/25: Awake, appears to focus. Extubated today following C Pap trial. Continue diuresis. 06/26: CCM reconsult note. Patient was extubated yesterday 06/25 and apparently was doing well initially. Overnight was placed on a 100% percent nonrebreather. I was called to the bedside emergently by Denny PATINO, today around 12.30 pm, patient was more unresponsive and hypoxemic on 100% nonrebreather. On my evaluation patient's eyes were open but nonresponsive, shallow breathing. Oxygen saturation 80% on 100 percent nonrebreather. Emergently intubated and placed on mechanical ventilation. Moderate amount of white secretions at glottic opening. CXR shows RLL infiltrate with volume loss? aspiration. Sputum cx. Discuss with ID Dr. Ortiz, will place on broad-spectrum antibiotics with Zosyn 06/27: Tmax 99.6 The patient was emergently reintubated yesterday, overnight no increasing ventilatory requirements were noted. The patient underwent a bronchoscopy with BAL this a.m., cultures were sent. Plan for PEG placement today. 06/28: Tmax 98.4 The patient underwent PEG placement yesterday, will resume tube feedings today. Mucomyst was initiated yesterday status post bronchial noted mucous plugs, with thick tenacious secretions. Will tentatively plan for tracheostomy next week, if unable to wean, and increasing ventilatory requirements. 06/29: She was noted to have a drop in hemoglobin last night, and received 2 units of packed red blood cells. Hemoccult has been ordered stat CBC to be followed up. No obvious signs of bleeding noted. 06/30: Hgb stable. No change in neuro status. will attempt CPAP trials. Palliative medicine, Dr. Venegas to schedule goals of care now with reintubation. 07/01: Remains encephalopathic. Hemoglobin stable at 10.0. No acute changes overnight. Discussion with palliative care team and , he would like aggressive measures/treatments to continue to include tracheostomy. General surgery has been consulted. 07/02: Afebrile. No acute changes overnight. Patient was evaluated by general surgery plans for tracheostomy in the next few days with coordination. 07/03: Afebrile. The patient was underwent percutaneous tracheostomy at bedside. Chest x-ray is pending. 07/04 No acute events overnight. s/p trach yesterday. Tolerating tube feeds. 07/05: Afebrile. The patient tolerated CPAP trials for 8 hours yesterday. She is on CPAP trials today. 07/06: The patient tolerated CPAP trials for 10 hours yesterday. Normotensive. The patient continues have heart rate low 100's. PRN beta samina utilized during the night. 07/07: The patient was placed back on the ventilator during the night last night for a"rest". The patient continues to perform a CPAP trial. The patient was noted to be slightly hypertensive, metoprolol increased to every 8 hours. LTAC placement planned. Objective Vital Signs Date Time Temp Pulse Resp B/P Pulse Ox O2 Delivery O2 Flow Rate FiO2 07/07/16 17:21 100 35 07/07/16 16:00 98.2 118 21 133/77 07/05/16 20:00 Mechanical Ventilator Intake and Output 07/06/16 07/06/16 07/07/16 08:00 16:00 00:00 Intake Total 677 ml 906 ml 456 ml Output Total 375.0 ml 425.0 ml 200.0 ml Balance 302.0 ml 481.0 ml 256.0 ml Result Diagram: 07/06/16 0355 07/07/16 0330 Imaging Last Impressions Chest X-Ray 07/04/16 0600 Signed Impressions: Service Date/Time: Monday, July 04, 2016 03:01 - CONCLUSION: Mild increasing atelectasis in the right lung base. Andi Luna MD Abdomen X-Ray 06/26/16 0000 Signed Impressions: Service Date/Time: June 13:08 - CONCLUSION: 1. Nasogastric tube in good position. Benign-appearing bowel gas pattern. Jd Underwood MD Abdomen/Pelvis CT 06/17/16 0000 Signed Impressions: Service Date/Time: Friday, June 17, 2016 04:12 - CONCLUSION: 1. New bibasilar atelectasis. 2. There is some mild dilatation of the small bowel. There is a mild to moderate distention of the colon down to the rectum suggestive of a diffuse adynamic ileus. No definite mechanical obstruction is seen. 3. Otherwise, no other significant changes compared to the prior study. Andi Luna MD Brain MRI 06/15/16 Signed Impressions: Service Date/Time: Wednesday, June 15, 2016 09:10 - CONCLUSION: No acute abnormality seen. 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 Reginaldo Cain MD Head Magnetic Resonance Angiography 06/14/16 Signed Impressions: Service Date/Time: Tuesday, June 14, 2016 18:23 - CONCLUSION: No evidence of vessel truncation or aneurysm. Simone Graham MD Liver Ultrasound 06/13/16 Signed Impressions: Service Date/Time: Monday, June 13, 2016 09:42 - CONCLUSION: 1. Small amount free fluid identified medial to the lower pole of the right kidney. 2. Slight increased hepatic echotexture suggesting some degree of fatty infiltration. 3. Please note the body and tail of the pancreas are obscured by overlying bowel gas. The head neck and uncinate process are sonographically intact. Mauro Leslie MD Head CT 06/12/[id number] Signed Impressions: Service Date/Time: May 21:37 - CONCLUSION: Unremarkable study. Jose Martinez MD Renal Ultrasound 06/12/16 Signed Impressions: Service Date/Time: May 23:51 - CONCLUSION: 1. Mild pelvocaliectasis on the right. No hydronephrosis involving either kidney. Simone Woody Jr., MD Chest CT 06/12/16 Signed Impressions: Service Date/Time: May 21:39 - CONCLUSION: Right upper lobe parenchymal process may represent pneumonia, however follow up is suggested with repeat noncontrast chest CT in 2-4 weeksafter appropriate clinical therapy. Jose Martinez MD Objective Remarks GENERAL: Elderly woman unresponsive on ventilator via trach. SKIN: Warm and dry. HEAD: Normocephalic. EYES: Pallor present, No scleral icterus. No injection or drainage. NECK: Supple, trachea midline. Orotracheally intubated CARDIOVASCULAR: Tachycardic rate and rhythm without murmurs, gallops, or rubs. RESPIRATORY: Mechanical ventilation Breath sounds diminished B/L bases. No wheezing noted GASTROINTESTINAL: Abdomen soft, non-tender, nondistended. Noted PEG in situ MUSCULOSKELETAL: No cyanosis, or edema. EXTREMITIES: No clubbing cyanosis or edema NEURO: Eyes are open, but patient is unresponsive, no response to sternal rub. A/P Assessment and Plan ASSESSMENT: Acute hypoxemic respiratory failure Probable aspiration/HCAP with R volume loss Encephalopathy SIRS/sepsis UTI Staph aureus pneumonia Acute kidney injury Rhabdo Hypernatremia Hypokalemia Anemia Lactic acidemia Leukocytosis- resolved Elevated LFT PLAN: Neuro: On no sedation. Monitor neuro status and avoid any sedatives. CT brain: No acute findings. UDS+ +Benzos MRA brain 06/14- Unremarkable. s/p LP showed clear CSF and 15 WBC. EEG: Bihemispheric slowing, small sharp waves b/l Neuro is following- Dr. Boggs, On Keppra 500mg Q12 Pulm: Continue with vent support keep sat >92% Bronchodilators, ICU vent bundle. s/p perc trach placed 07/03, 8.0 Shiley Pulm toliet, trach care, SBT daily as cherie. Continue CPAP trials CV: Monitor HR and BP keep MAP>65mmHg. Increase Lopressor 50 mg Q12 for HR/BP control : Monitor renal function, I/O's, avoid nephrotoxins. Electrolytes replacement per protocol. Renal US: No hydronephrosis. Renal is following- Dr. Corral GI/liver: On Pepcid 20meq IV qhs, tube feeds with Glucerna i1.5@45ml/hr Monitor LFT's ( trending down), US liver: Fatty liver. Elevated urinary copper - GI is following. CT abdomen/pelvis 06/17- findings suggestive of adynamic ileus. No mechanical obstruction. On Reglan 5mg Iv q8 PRN, Miralax, Lactulose 06/27 PEG placement ID: - Off abx monitor for signs of infections ( Fever, WBC) Pertinent cultures: 06/12 Urine cx: E.coli 06/12 BC: No growth 06/12 CSG: NGTD 06/15 urine: E coli, sputum: MSSA 06/26: Blood sputum and urine cultures sent pending Antifungal cream added to medication regimen per general surgery, anterior and lateral neck areas Heme: Thrombocytopenia-resolved Anemia Monitor CBC, and coags. Hep plt ab negative. 5/6-Transfused 2 units of PRBCs Endo: SSI for glycemic control, TSH level: 2.5 GI Prophylaxis with Pepcid DVT prophylaxis with SCD's, place on Heparin SQ ( thrombocytopenia resolved) Palliative care Dr. Venegas, following to assist with deciding goals of therapy. Patient's wishes to continue full CODE STATUS at this time, and continued aggressive treatment/therapies. Case management pending LTAC placement Dispo: Level 3 Physician Stacy Reeves MD July 07, 2016 17:53
[2016-07-07] MEDS: FAMOTIDINE 20 MG/2 ML VIAL IV PUSH SCH (20:17)
[2016-07-08] VITALS (19 sets, daily range): BP systolic 123–153; BP diastolic 75–93; PULSE 97–125; RESP 16–25; TEMP 98.4–99.6; O2SAT 99–100
[2016-07-08] MEDS: LABETALOL HCL 100 MG/20 ML VIAL IV PUSH PRN (02:07)
[2016-07-08] MEDS: CHLORHEXIDINE GLUCONATE 2 % 1 PACK (2 CLOTHS) TOP SCH (04:00)
[2016-07-08] MEDS: METOPROLOL TARTRATE 50 MG TAB PO SCH ×3 (06:03→21:45)
[2016-07-08] MEDS: NYSTATIN 100,000 U/GM PWD 15 GM BTL TOPICAL SCH ×3 (06:03→21:45)
[2016-07-08] MEDS: levETIRAcetam INJ 500 MG in SODIUM CHLORIDE 0.9% INJ 100 ML IV SCH (08:47)
[2016-07-08] MEDS: CHLORHEXIDINE 0.12% (ORAL KIT) 15 ML CUP MT SCH ×2 (08:47→20:35)
[2016-07-08] MEDS: POLYETHYLENE GLYCOL 17 GM PKG PO SCH (08:48)
[2016-07-08] MEDS: PREGABALIN 75 MG CAP PO SCH ×2 (08:48→20:35)
[2016-07-08] MEDS: BACLOFEN 10 MG TAB PO SCH ×3 (08:48→17:41)
[2016-07-08] MEDS: LACTULOSE SYRUP 20 GM/30 ML CUP PO SCH ×2 (08:48→20:35)
[2016-07-08] MEDS: HEPARIN SODIUM - SQ 10,000 UNITS/ML VIAL SQ SCH ×2 (08:48→20:35)
[2016-07-08] MEDS: SODIUM CHLORIDE 0.9% FLUSH 10 ML FLUSH IV FLUSH SCH ×2 (08:48→20:35)
--- NOTE | 2016-07-08 12:14 | HHI.CCPN ---
Subjective Remarks/Hospital Course 56-year-old female brought in by EMS emergently as altered mental status, hypoxia and temperature 104. Patient has a history of CVA many years ago. Per caregiver she didn't feel well since yesterday and wasn't taking any of medications including baclofen. Patient was unable to communicate due to her altered mental status. As per EMS not much history was available from the family but she has history of CVA as baseline but communicates. In the emergency department patient's oxygen saturation was low 70s upon EMS arrival. They had her on oxygen via nonrebreather and sats of 93%. GCS was 6 and she was intubated by ER attending for an airway protection. 06/13 Patient is sedated with Versed and on Bicarb drip. Renal function is improving with Cr: 2.12 from 3.19 UO: 1350ml since yesterday. Afebrile. 06/14 Patient remains sedated and intubated. Afebrile. Renal function continue to improve with Cr: 1.18 today from 1.53. 06/15 No acute events overnight. Off sedation remains intubated. Patient tolerated CPAP all day yesterday. MRA brain last night is unremarkable. T:99.9 06/16 Patient remains intubated off sedation. Afebrile. Tolerated CPAP all day yesterday remains encephalopathic. 06/17 No acute events overnight. Patient is able to open her eyes but does not follow commands. T: 100.1 last night. 06/18: Remains encephalopathic, orally intubated on mechanical ventilation. 06/19: Remains encephalopathic, orally intubated on mechanical ventilation. Daily C Pap trials ongoing. 06/20: Remains encephalopathic, orally intubated on mechanical ventilation. Daily C Pap trials. Tube feeds resumed. 06/21: More awake however not following commands. Remains orally intubated on mechanical ventilation. Tolerating tube feeds. Daily C Pap trials ongoing. 06/22: Encephalopathic though more awake, arousable. Not following commands. Remains orally intubated on mechanical ventilation. Tolerating tube feeds. Daily C Pap trials. 06/23: Awake, not following commands. Remains orally intubated on mechanical ventilation. Failing C Pap trials. Tolerating tube feeds. 06/24: Opening eyes, blinks on command. Remains orally intubated on mechanical ventilation. Tolerating tube feeds. Gets tachypneic with low volumes on dropping pressure-support at C Pap trials. We'll initiate diuresis as patient isn't significantly positive fluid balance since admission due to fluids administered for sepsis which now appears to be under control. 06/25: Awake, appears to focus. Extubated today following C Pap trial. Continue diuresis. 06/26: CCM reconsult note. Patient was extubated yesterday 06/25 and apparently was doing well initially. Overnight was placed on a 100% percent nonrebreather. I was called to the bedside emergently by Denny PATINO, today around 12.30 pm, patient was more unresponsive and hypoxemic on 100% nonrebreather. On my evaluation patient's eyes were open but nonresponsive, shallow breathing. Oxygen saturation 80% on 100 percent nonrebreather. Emergently intubated and placed on mechanical ventilation. Moderate amount of white secretions at glottic opening. CXR shows RLL infiltrate with volume loss? aspiration. Sputum cx. Discuss with ID Dr. Ortiz, will place on broad-spectrum antibiotics with Zosyn 06/27: Tmax 99.6 The patient was emergently reintubated yesterday, overnight no increasing ventilatory requirements were noted. The patient underwent a bronchoscopy with BAL this a.m., cultures were sent. Plan for PEG placement today. 06/28: Tmax 98.4 The patient underwent PEG placement yesterday, will resume tube feedings today. Mucomyst was initiated yesterday status post bronchial noted mucous plugs, with thick tenacious secretions. Will tentatively plan for tracheostomy next week, if unable to wean, and increasing ventilatory requirements. 06/29: She was noted to have a drop in hemoglobin last night, and received 2 units of packed red blood cells. Hemoccult has been ordered stat CBC to be followed up. No obvious signs of bleeding noted. 06/30: Hgb stable. No change in neuro status. will attempt CPAP trials. Palliative medicine, Dr. Venegas to schedule goals of care now with reintubation. 07/01: Remains encephalopathic. Hemoglobin stable at 10.0. No acute changes overnight. Discussion with palliative care team and , he would like aggressive measures/treatments to continue to include tracheostomy. General surgery has been consulted. 07/02: Afebrile. No acute changes overnight. Patient was evaluated by general surgery plans for tracheostomy in the next few days with coordination. 07/03: Afebrile. The patient was underwent percutaneous tracheostomy at bedside. Chest x-ray is pending. 07/04 No acute events overnight. s/p trach yesterday. Tolerating tube feeds. 07/05: Afebrile. The patient tolerated CPAP trials for 8 hours yesterday. She is on CPAP trials today. 07/06: The patient tolerated CPAP trials for 10 hours yesterday. Normotensive. The patient continues have heart rate low 100's. PRN beta samina utilized during the night. 07/07: The patient was placed back on the ventilator during the night last night for a"rest". The patient continues to perform a CPAP trial. The patient was noted to be slightly hypertensive, metoprolol increased to every 8 hours. LTAC placement planned. Subjective 07/08: Currently resting in bed in no acute distress. Afebrile. Tolerating tube feeds. Positive BM. Objective Vital Signs Date Time Temp Pulse Resp B/P Pulse Ox O2 Delivery O2 Flow Rate FiO2 07/08/16 10:00 107 07/08/16 09:48 19 07/08/16 08:19 100 35 07/08/16 08:00 98.4 132/83 07/05/16 20:00 Mechanical Ventilator Intake and Output 07/07/16 07/07/16 07/08/16 08:00 16:00 00:00 Intake Total 427 ml 578 ml 600 ml Output Total 375.0 ml 275.0 ml 220 ml Balance 52.0 ml 303.0 ml 380 ml Result Diagram: 07/06/16 0355 07/07/16 0330 Imaging Last Impressions Chest X-Ray 07/04/16 0600 Signed Impressions: Service Date/Time: Monday, July 04, 2016 03:01 - CONCLUSION: Mild increasing atelectasis in the right lung base. Andi Luna MD Abdomen X-Ray 06/26/16 0000 Signed Impressions: Service Date/Time: June 13:08 - CONCLUSION: 1. Nasogastric tube in good position. Benign-appearing bowel gas pattern. Jd Underwood MD Abdomen/Pelvis CT 06/17/16 0000 Signed Impressions: Service Date/Time: Friday, June 17, 2016 04:12 - CONCLUSION: 1. New bibasilar atelectasis. 2. There is some mild dilatation of the small bowel. There is a mild to moderate distention of the colon down to the rectum suggestive of a diffuse adynamic ileus. No definite mechanical obstruction is seen. 3. Otherwise, no other significant changes compared to the prior study. Andi Luna MD Brain MRI 06/15/16 Signed Impressions: Service Date/Time: Wednesday, June 15, 2016 09:10 - CONCLUSION: No acute abnormality seen. 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 Reginaldo Cain MD Head Magnetic Resonance Angiography 06/14/16 Signed Impressions: Service Date/Time: Tuesday, June 14, 2016 18:23 - CONCLUSION: No evidence of vessel truncation or aneurysm. Simone Graham MD Liver Ultrasound 06/13/16 Signed Impressions: Service Date/Time: Monday, June 13, 2016 09:42 - CONCLUSION: 1. Small amount free fluid identified medial to the lower pole of the right kidney. 2. Slight increased hepatic echotexture suggesting some degree of fatty infiltration. 3. Please note the body and tail of the pancreas are obscured by overlying bowel gas. The head neck and uncinate process are sonographically intact. Mauro Leslie MD Head CT [id number]/12/[id number] Signed Impressions: Service Date/Time: May 21:37 - CONCLUSION: Unremarkable study. Jose Martinez MD Renal Ultrasound 06/12/16 Signed Impressions: Service Date/Time: May 23:51 - CONCLUSION: 1. Mild pelvocaliectasis on the right. No hydronephrosis involving either kidney. Simone Woody Jr., MD Chest CT 06/12/16 Signed Impressions: Service Date/Time: May 21:39 - CONCLUSION: Right upper lobe parenchymal process may represent pneumonia, however follow up is suggested with repeat noncontrast chest CT in 2-4 weeksafter appropriate clinical therapy. Jose Martinez MD Objective Remarks GENERAL: 56-year-old female, unresponsive on ventilator via trach. SKIN: Warm and dry. HEAD: Normocephalic. EYES: Pallor present, No scleral icterus. No injection or drainage. NECK: Supple, trachea midline. Orotracheally intubated CARDIOVASCULAR: Tachycardic, RR. S1, S2 no S4. Without murmurs, gallops, or rubs. RESPIRATORY: Transmitted upper airway sounds. Diminished breath sounds in bases.. No wheezing noted GASTROINTESTINAL: Abdomen soft, non-tender, nondistended. Noted PEG in situ MUSCULOSKELETAL: No deformities. Dorsalis pedis posterior be else's are bilaterally palpable no decubitus ulcer EXTREMITIES: No significant peripheral edema NEURO: Eyes are open, but patient is unresponsive, no response to sternal rub. A/P Assessment and Plan ASSESSPLAN: Neuro: Encephalopathy Left basal ganglia/IC CVA On no sedation. Monitor neuro status and avoid any sedatives. CT brain: No acute findings. UDS+ +Benzos MRA brain 06/14- Unremarkable. MRI brain 06/14 revealed lacunar infarct left basal ganglia left posterior and internal capsule s/p LP showed clear CSF and 15 WBC. EEG: Bihemispheric slowing, small sharp waves b/l Neuro is following- Dr. Boggs, On Keppra 500mg by PEG Q12 Continue Lyrica 25 mg twice a day encircling 100 mg by mouth daily/home medications Continue baclofen 10 mg 3 times a day for muscle spasms Pulm: Vent dependent respiratory failure Acute hypoxemic respiratory failure Probable aspiration/HCAP with R volume loss Continue with vent support keep sat >92% Bronchodilators every 6 hours and as needed, ICU vent bundle. s/p perc trach placed 07/03, 8.[address] [facility], SBT daily as cherie. Continue CPAP trials CV: Hypertension Monitor HR and BP keep MAP>65mmHg. Increase Lopressor 50 mg Q12 for HR/BP control Restart Norvasc 5 mill grams by mouth daily/home medication : Monitor renal function, I/O's, avoid nephrotoxins. Electrolytes replacement per protocol. Renal US: No hydronephrosis. Renal is following- Dr. Corral GI/liver: Gastroesophageal reflux disease On Pepcid 20 milligrams by PEG qhs, tube feeds with Glucerna 1.5@60ml/hr Monitor LFT's ( trending down), US liver: Fatty liver. Elevated urinary copper - GI is following. CT abdomen/pelvis 06/17- findings suggestive of adynamic ileus. No mechanical obstruction. On Reglan 5mg Iv q8 PRN, Miralax, Lactulose 06/[address] Davis ID: Staph aureus pneumonia - Off abx monitor for signs of infections ( Fever, WBC) Pertinent cultures: 06/12 Urine cx: E.coli 06/12 BC: No growth 06/12 CSG: NGTD 06/15 urine: E coli, sputum: MSSA 06/26: Blood sputum and urine cultures sent pending Antifungal cream added to medication regimen per general surgery, anterior and lateral neck areas Heme: Thrombocytopenia-resolved Normocytic anemia Monitor CBC, and coags. Hep plt ab negative. 06/28-Transfused 2 units of PRBCs Endo: SSI for glycemic control, TSH level: 2.5 GI Prophylaxis with Pepcid DVT prophylaxis with SCD's, place on Heparin SQ Palliative care Dr. Venegas, following to assist with deciding goals of therapy. Patient's wishes to continue full CODE STATUS at this time, and continued aggressive treatment/therapies. Case management pending LTAC placement Dispo: Level 2 Dung Jeffries MD July 08, 2016 12:14
[2016-07-08] MEDS ORDERED: POTASSIUM CHLORIDE 25 MEQ EFFERVESCENT TAB PO ONE (12:15)
[2016-07-08] MEDS: SODIUM CHLOR 0.9% 1000 ML INJ 1,000 ML IV SCH (14:43)
[2016-07-08] MEDS: levETIRAcetam 500 MG/5 ML UDC NG SCH (20:35)
[2016-07-09] VITALS (18 sets, daily range): BP systolic 143–156; BP diastolic 82–97; PULSE 91–133; RESP 15–27; TEMP 97.3–99.9; O2SAT 97–100
[2016-07-09] MEDS: CHLORHEXIDINE GLUCONATE 2 % 1 PACK (2 CLOTHS) TOP SCH (04:00)
[2016-07-09 05:14] LABS: HEMATOCRIT 31.5 % (35.0-46.0); MEAN CELL VOLUME 81.5 FL (80.0-100.0); MEAN CORPUSCULAR HEMOGLOBIN 27.1 PG (27.0-34.0); MEAN CORPUSCULAR HGB CONC 33.3 % (32.0-36.0); PLATELET COUNT 220 TH/MM3 (150-450); RED BLOOD COUNT 3.87 MIL/MM3 (4.00-5.30); RED CELL DISTRIBUTION WIDTH 16.8 % (11.6-17.2); REVIEW FLAG FINAL; WHITE BLOOD COUNT 8.6 TH/MM3 (4.0-11.0)
[2016-07-09] MEDS: METOPROLOL TARTRATE 50 MG TAB PO SCH ×3 (05:18→21:26)
[2016-07-09] MEDS: NYSTATIN 100,000 U/GM PWD 15 GM BTL TOPICAL SCH ×3 (05:18→21:28)
[2016-07-09 05:30] LABS: BICARBONATE 29.6 MEQ/L (21.0-32.0); POTASSIUM 4.1 MEQ/L (3.5-5.1)
[2016-07-09] MEDS: FAMOTIDINE 20 MG TAB NG SCH (08:29)
[2016-07-09] MEDS: PREGABALIN 75 MG CAP PO SCH ×2 (08:29→21:26)
[2016-07-09] MEDS: levETIRAcetam 500 MG/5 ML UDC NG SCH ×2 (08:29→21:26)
[2016-07-09] MEDS: amLODIPine BESYLATE 5 MG TAB PO SCH (08:29)
[2016-07-09] MEDS: BACLOFEN 10 MG TAB PO SCH ×3 (08:29→17:32)
[2016-07-09] MEDS: SODIUM CHLORIDE 0.9% FLUSH 10 ML FLUSH IV FLUSH SCH ×2 (08:29→21:27)
[2016-07-09] MEDS: LACTULOSE SYRUP 20 GM/30 ML CUP PO SCH ×2 (08:30→21:26)
[2016-07-09] MEDS: HEPARIN SODIUM - SQ 10,000 UNITS/ML VIAL SQ SCH ×2 (08:30→21:26)
[2016-07-09] MEDS: POLYETHYLENE GLYCOL 17 GM PKG PO SCH (08:30)
[2016-07-09] MEDS: CHLORHEXIDINE 0.12% (ORAL KIT) 15 ML CUP MT SCH ×2 (08:31→21:27)
--- NOTE | 2016-07-09 08:55 | HHI.CCPN ---
Subjective Remarks/Hospital Course 56-year-old female brought in by EMS emergently as altered mental status, hypoxia and temperature 104. Patient has a history of CVA many years ago. Per caregiver she didn't feel well since yesterday and wasn't taking any of medications including baclofen. Patient was unable to communicate due to her altered mental status. As per EMS not much history was available from the family but she has history of CVA as baseline but communicates. In the emergency department patient's oxygen saturation was low 70s upon EMS arrival. They had her on oxygen via nonrebreather and sats of 93%. GCS was 6 and she was intubated by ER attending for an airway protection. 06/13 Patient is sedated with Versed and on Bicarb drip. Renal function is improving with Cr: 2.12 from 3.19 UO: 1350ml since yesterday. Afebrile. 06/14 Patient remains sedated and intubated. Afebrile. Renal function continue to improve with Cr: 1.18 today from 1.53. 06/15 No acute events overnight. Off sedation remains intubated. Patient tolerated CPAP all day yesterday. MRA brain last night is unremarkable. T:99.9 06/16 Patient remains intubated off sedation. Afebrile. Tolerated CPAP all day yesterday remains encephalopathic. 06/17 No acute events overnight. Patient is able to open her eyes but does not follow commands. T: 100.1 last night. 06/18: Remains encephalopathic, orally intubated on mechanical ventilation. 06/19: Remains encephalopathic, orally intubated on mechanical ventilation. Daily C Pap trials ongoing. 06/20: Remains encephalopathic, orally intubated on mechanical ventilation. Daily C Pap trials. Tube feeds resumed. 06/21: More awake however not following commands. Remains orally intubated on mechanical ventilation. Tolerating tube feeds. Daily C Pap trials ongoing. 06/22: Encephalopathic though more awake, arousable. Not following commands. Remains orally intubated on mechanical ventilation. Tolerating tube feeds. Daily C Pap trials. 06/23: Awake, not following commands. Remains orally intubated on mechanical ventilation. Failing C Pap trials. Tolerating tube feeds. 06/24: Opening eyes, blinks on command. Remains orally intubated on mechanical ventilation. Tolerating tube feeds. Gets tachypneic with low volumes on dropping pressure-support at C Pap trials. We'll initiate diuresis as patient isn't significantly positive fluid balance since admission due to fluids administered for sepsis which now appears to be under control. 06/25: Awake, appears to focus. Extubated today following C Pap trial. Continue diuresis. 06/26: CCM reconsult note. Patient was extubated yesterday 06/25 and apparently was doing well initially. Overnight was placed on a 100% percent nonrebreather. I was called to the bedside emergently by Denny PATINO, today around 12.30 pm, patient was more unresponsive and hypoxemic on 100% nonrebreather. On my evaluation patient's eyes were open but nonresponsive, shallow breathing. Oxygen saturation 80% on 100 percent nonrebreather. Emergently intubated and placed on mechanical ventilation. Moderate amount of white secretions at glottic opening. CXR shows RLL infiltrate with volume loss? aspiration. Sputum cx. Discuss with ID Dr. Ortiz, will place on broad-spectrum antibiotics with Zosyn 06/27: Tmax 99.6 The patient was emergently reintubated yesterday, overnight no increasing ventilatory requirements were noted. The patient underwent a bronchoscopy with BAL this a.m., cultures were sent. Plan for PEG placement today. 06/28: Tmax 98.4 The patient underwent PEG placement yesterday, will resume tube feedings today. Mucomyst was initiated yesterday status post bronchial noted mucous plugs, with thick tenacious secretions. Will tentatively plan for tracheostomy next week, if unable to wean, and increasing ventilatory requirements. 06/29: She was noted to have a drop in hemoglobin last night, and received 2 units of packed red blood cells. Hemoccult has been ordered stat CBC to be followed up. No obvious signs of bleeding noted. 06/30: Hgb stable. No change in neuro status. will attempt CPAP trials. Palliative medicine, Dr. Venegas to schedule goals of care now with reintubation. 07/01: Remains encephalopathic. Hemoglobin stable at 10.0. No acute changes overnight. Discussion with palliative care team and , he would like aggressive measures/treatments to continue to include tracheostomy. General surgery has been consulted. 07/02: Afebrile. No acute changes overnight. Patient was evaluated by general surgery plans for tracheostomy in the next few days with coordination. 07/03: Afebrile. The patient was underwent percutaneous tracheostomy at bedside. Chest x-ray is pending. 07/04 No acute events overnight. s/p trach yesterday. Tolerating tube feeds. 07/05: Afebrile. The patient tolerated CPAP trials for 8 hours yesterday. She is on CPAP trials today. 07/06: The patient tolerated CPAP trials for 10 hours yesterday. Normotensive. The patient continues have heart rate low 100's. PRN beta samina utilized during the night. 07/07: The patient was placed back on the ventilator during the night last night for a"rest". The patient continues to perform a CPAP trial. The patient was noted to be slightly hypertensive, metoprolol increased to every 8 hours. LTAC placement planned. 07/08: Currently resting in bed in no acute distress. Afebrile. Tolerating tube feeds. Positive BM. Subjective 07/09: Resting in bed on PSV trial in no acute distress. Tmax 99.4. Tolerating tube feeds. Positive BM. Neurologically unchanged. Objective Vital Signs Date Time Temp Pulse Resp B/P Pulse Ox O2 Delivery O2 Flow Rate FiO2 07/09/16 06:00 91 07/09/16 05:19 100 30 07/09/16 04:00 98.8 15 153/88 07/05/16 20:00 Mechanical Ventilator Intake and Output 07/08/16 07/08/16 07/09/16 08:00 16:00 00:00 Intake Total 465 ml 655 ml 569 ml Output Total 200 ml 275 ml 575 ml Balance 265 ml 380 ml -6 ml Result Diagram: 07/09/16 0440 07/09/16 0440 Imaging Last Impressions Chest X-Ray 07/04/16 0600 Signed Impressions: Service Date/Time: Monday, July 04, 2016 03:01 - CONCLUSION: Mild increasing atelectasis in the right lung base. Andi Luna MD Abdomen X-Ray 06/26/16 0000 Signed Impressions: Service Date/Time: June 13:08 - CONCLUSION: 1. Nasogastric tube in good position. Benign-appearing bowel gas pattern. Jd Underwood MD Abdomen/Pelvis CT 06/17/16 Signed Impressions: Service Date/Time: Friday, June 17, 2016 04:12 - CONCLUSION: 1. New bibasilar atelectasis. 2. There is some mild dilatation of the small bowel. There is a mild to moderate distention of the colon down to the rectum suggestive of a diffuse adynamic ileus. No definite mechanical obstruction is seen. 3. Otherwise, no other significant changes compared to the prior study. Andi Luna MD Brain MRI 06/15/16 Signed Impressions: Service Date/Time: Wednesday, June 15, 2016 09:10 - CONCLUSION: No acute abnormality seen. 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 Reginaldo Cain MD Head Magnetic Resonance Angiography 06/14/16 Signed Impressions: Service Date/Time: Tuesday, June 14, 2016 18:23 - CONCLUSION: No evidence of vessel truncation or aneurysm. Simone Graham MD Liver Ultrasound 06/13/16 Signed Impressions: Service Date/Time: Monday, June 13, 2016 09:42 - CONCLUSION: 1. Small amount free fluid identified medial to the lower pole of the right kidney. 2. Slight increased hepatic echotexture suggesting some degree of fatty infiltration. 3. Please note the body and tail of the pancreas are obscured by overlying bowel gas. The head neck and uncinate process are sonographically intact. Mauro Leslie MD Head CT 06/12/16 1657 Signed Impressions: Service Date/Time: May 21:37 - CONCLUSION: Unremarkable study. Jose Martinez MD Renal Ultrasound 06/12/16 Signed Impressions: Service Date/Time: May 23:51 - CONCLUSION: 1. Mild pelvocaliectasis on the right. No hydronephrosis involving either kidney. Simone Woody Jr., MD Chest CT 06/12/16 Signed Impressions: Service Date/Time: May 21:39 - CONCLUSION: Right upper lobe parenchymal process may represent pneumonia, however follow up is suggested with repeat noncontrast chest CT in 2-4 weeksafter appropriate clinical therapy. Jose Martinez MD Objective Remarks GENERAL: 56-year-old female, unresponsive on ventilator via trach. SKIN: Warm and dry. HEAD: Normocephalic. EYES: Pallor present, No scleral icterus. No injection or drainage. NECK: Supple, trachea midline. Orotracheally intubated CARDIOVASCULAR: Tachycardic, RR. S1, S2 no S4. Without murmurs, gallops, or rubs. RESPIRATORY: Transmitted upper airway sounds. Diminished breath sounds in bases.. No wheezing noted GASTROINTESTINAL: Abdomen soft, non-tender, nondistended. Noted PEG in situ MUSCULOSKELETAL: No deformities. Dorsalis pedis posterior be else's are bilaterally palpable no decubitus ulcer EXTREMITIES: No significant peripheral edema NEURO: Eyes are open, but patient is unresponsive, no response to sternal rub. A/P Assessment and Plan ASSESSPLAN: Neuro: Encephalopathy Left basal ganglia/IC CVA On no sedation. Monitor neuro status and avoid any sedatives. CT brain: No acute findings. UDS+ +Benzos MRA brain 06/14- Unremarkable. MRI brain 06/14 revealed lacunar infarct left basal ganglia left posterior and internal capsule s/p LP showed clear CSF and 15 WBC. EEG: Bihemispheric slowing, small sharp waves b/l Neuro is following- Dr. Boggs, On Keppra 500mg by PEG Q12 Continue Lyrica 25 mg twice a day encircling 100 mg by mouth daily/home medications Continue baclofen 10 mg 3 times a day for muscle spasms Pulm: Vent dependent respiratory failure Acute hypoxemic respiratory failure Probable aspiration/HCAP with R volume loss Continue with vent support keep sat >92% Bronchodilators every 6 hours and as needed, ICU vent bundle. s/p perc trach placed 07/03, 8.[address] [facility] SBT daily as cherie. Continue CPAP trials CV: Hypertension Monitor HR and BP keep MAP>65mmHg. Increase Lopressor 50 mg Q12 for HR/BP control Restart Norvasc 5 mill grams by mouth daily/home medication : Monitor renal function, I/O's, avoid nephrotoxins. Electrolytes replacement per protocol. Renal US: No hydronephrosis. Renal is following- Dr. Corral GI/liver: Gastroesophageal reflux disease On Pepcid 20 milligrams by PEG qhs, tube feeds with Glucerna 1.5@60ml/hr Monitor LFT's ( trending down), US liver: Fatty liver. Elevated urinary copper - GI is following. CT abdomen/pelvis 06/17- findings suggestive of adynamic ileus. No mechanical obstruction. On Reglan 5mg Iv q8 PRN, Miralax, Lactulose 06/[address] Davis ID: Staph aureus pneumonia - Off abx monitor for signs of infections ( Fever, WBC) Pertinent cultures: 06/12 Urine cx: E.coli 06/12 BC: No growth 06/12 CSG: NGTD 06/15 urine: E coli, sputum: MSSA 06/26: Blood sputum and urine cultures sent pending Antifungal cream added to medication regimen per general surgery, anterior and lateral neck areas Heme: Thrombocytopenia-resolved Normocytic anemia Monitor CBC, and coags. Hep plt ab negative. 06/28-Transfused 2 units of PRBCs Endo: SSI for glycemic control, TSH level: 2.5 GI Prophylaxis with Pepcid DVT prophylaxis with SCD's, place on Heparin SQ Palliative care Dr. Venegas, following to assist with deciding goals of therapy. Patient's wishes to continue full CODE STATUS at this time, and continued aggressive treatment/therapies. Case management pending LTAC placement Dispo: Level 2 Dung Jeffries MD July 09, 2016 08:55
[2016-07-09] MEDS: SODIUM CHLOR 0.9% 1000 ML INJ 1,000 ML IV SCH (12:55)
[2016-07-09] MEDS: RESP: ALBUTEROL 2.5 MG/IPRATROPIUM 0.5 MG NEB (SCH) NEB ×2 (15:11→20:47)
[2016-07-09] MEDS: LABETALOL HCL 100 MG/20 ML VIAL IV PUSH PRN (20:06)
[2016-07-10] VITALS (20 sets, daily range): BP systolic 121–151; BP diastolic 71–97; PULSE 98–123; RESP 10–28; TEMP 99.3–100.1; O2SAT 99–100
[2016-07-10] MEDS: ACETAMINOPHEN 650 MG/20.3 ML UDC PO PRN (01:47)
[2016-07-10] MEDS: RESP: ALBUTEROL 2.5 MG/IPRATROPIUM 0.5 MG NEB (SCH) NEB ×4 (03:22→20:22)
[2016-07-10] MEDS: CHLORHEXIDINE GLUCONATE 2 % 1 PACK (2 CLOTHS) TOP SCH (04:00)
[2016-07-10] MEDS: METOPROLOL TARTRATE 50 MG TAB PO SCH ×3 (06:05→20:50)
[2016-07-10] MEDS: NYSTATIN 100,000 U/GM PWD 15 GM BTL TOPICAL SCH ×3 (06:06→20:51)
[2016-07-10] MEDS: CHLORHEXIDINE 0.12% (ORAL KIT) 15 ML CUP MT SCH ×2 (08:11→20:50)
[2016-07-10] MEDS: levETIRAcetam 500 MG/5 ML UDC NG SCH ×2 (08:11→20:50)
[2016-07-10] MEDS: SODIUM CHLORIDE 0.9% FLUSH 10 ML FLUSH IV FLUSH SCH ×2 (08:11→20:50)
[2016-07-10] MEDS: HEPARIN SODIUM - SQ 10,000 UNITS/ML VIAL SQ SCH ×2 (08:12→20:51)
[2016-07-10] MEDS: BACLOFEN 10 MG TAB PO SCH ×3 (08:12→18:02)
[2016-07-10] MEDS: LACTULOSE SYRUP 20 GM/30 ML CUP PO SCH ×2 (08:12→22:03)
[2016-07-10] MEDS: PREGABALIN 75 MG CAP PO SCH ×2 (08:12→20:50)
[2016-07-10] MEDS: FAMOTIDINE 20 MG TAB NG SCH (08:12)
[2016-07-10] MEDS: POLYETHYLENE GLYCOL 17 GM PKG PO SCH (08:12)
[2016-07-10] MEDS: amLODIPine BESYLATE 5 MG TAB PO SCH (08:12)
--- NOTE | 2016-07-10 09:01 | HHI.CCPN ---
Subjective Remarks/Hospital Course 56-year-old female brought in by EMS emergently as altered mental status, hypoxia and temperature 104. Patient has a history of CVA many years ago. Per caregiver she didn't feel well since yesterday and wasn't taking any of medications including baclofen. Patient was unable to communicate due to her altered mental status. As per EMS not much history was available from the family but she has history of CVA as baseline but communicates. In the emergency department patient's oxygen saturation was low 70s upon EMS arrival. They had her on oxygen via nonrebreather and sats of 93%. GCS was 6 and she was intubated by ER attending for an airway protection. 06/13 Patient is sedated with Versed and on Bicarb drip. Renal function is improving with Cr: 2.12 from 3.19 UO: 1350ml since yesterday. Afebrile. 06/14 Patient remains sedated and intubated. Afebrile. Renal function continue to improve with Cr: 1.18 today from 1.53. 06/15 No acute events overnight. Off sedation remains intubated. Patient tolerated CPAP all day yesterday. MRA brain last night is unremarkable. T:99.9 06/16 Patient remains intubated off sedation. Afebrile. Tolerated CPAP all day yesterday remains encephalopathic. 06/17 No acute events overnight. Patient is able to open her eyes but does not follow commands. T: 100.1 last night. 06/18: Remains encephalopathic, orally intubated on mechanical ventilation. 06/19: Remains encephalopathic, orally intubated on mechanical ventilation. Daily C Pap trials ongoing. 06/20: Remains encephalopathic, orally intubated on mechanical ventilation. Daily C Pap trials. Tube feeds resumed. 06/21: More awake however not following commands. Remains orally intubated on mechanical ventilation. Tolerating tube feeds. Daily C Pap trials ongoing. 06/22: Encephalopathic though more awake, arousable. Not following commands. Remains orally intubated on mechanical ventilation. Tolerating tube feeds. Daily C Pap trials. 06/23: Awake, not following commands. Remains orally intubated on mechanical ventilation. Failing C Pap trials. Tolerating tube feeds. 06/24: Opening eyes, blinks on command. Remains orally intubated on mechanical ventilation. Tolerating tube feeds. Gets tachypneic with low volumes on dropping pressure-support at C Pap trials. We'll initiate diuresis as patient isn't significantly positive fluid balance since admission due to fluids administered for sepsis which now appears to be under control. 06/25: Awake, appears to focus. Extubated today following C Pap trial. Continue diuresis. 06/26: CCM reconsult note. Patient was extubated yesterday 06/25 and apparently was doing well initially. Overnight was placed on a 100% percent nonrebreather. I was called to the bedside emergently by Denny PATINO, today around 12.30 pm, patient was more unresponsive and hypoxemic on 100% nonrebreather. On my evaluation patient's eyes were open but nonresponsive, shallow breathing. Oxygen saturation 80% on 100 percent nonrebreather. Emergently intubated and placed on mechanical ventilation. Moderate amount of white secretions at glottic opening. CXR shows RLL infiltrate with volume loss? aspiration. Sputum cx. Discuss with ID Dr. Ortiz, will place on broad-spectrum antibiotics with Zosyn 06/27: Tmax 99.6 The patient was emergently reintubated yesterday, overnight no increasing ventilatory requirements were noted. The patient underwent a bronchoscopy with BAL this a.m., cultures were sent. Plan for PEG placement today. 06/28: Tmax 98.4 The patient underwent PEG placement yesterday, will resume tube feedings today. Mucomyst was initiated yesterday status post bronchial noted mucous plugs, with thick tenacious secretions. Will tentatively plan for tracheostomy next week, if unable to wean, and increasing ventilatory requirements. 06/29: She was noted to have a drop in hemoglobin last night, and received 2 units of packed red blood cells. Hemoccult has been ordered stat CBC to be followed up. No obvious signs of bleeding noted. 06/30: Hgb stable. No change in neuro status. will attempt CPAP trials. Palliative medicine, Dr. Venegas to schedule goals of care now with reintubation. 07/01: Remains encephalopathic. Hemoglobin stable at 10.0. No acute changes overnight. Discussion with palliative care team and , he would like aggressive measures/treatments to continue to include tracheostomy. General surgery has been consulted. 07/02: Afebrile. No acute changes overnight. Patient was evaluated by general surgery plans for tracheostomy in the next few days with coordination. 07/03: Afebrile. The patient was underwent percutaneous tracheostomy at bedside. Chest x-ray is pending. 07/04 No acute events overnight. s/p trach yesterday. Tolerating tube feeds. 07/05: Afebrile. The patient tolerated CPAP trials for 8 hours yesterday. She is on CPAP trials today. 07/06: The patient tolerated CPAP trials for 10 hours yesterday. Normotensive. The patient continues have heart rate low 100's. PRN beta samina utilized during the night. 07/07: The patient was placed back on the ventilator during the night last night for a"rest". The patient continues to perform a CPAP trial. The patient was noted to be slightly hypertensive, metoprolol increased to every 8 hours. LTAC placement planned. 07/08: Currently resting in bed in no acute distress. Afebrile. Tolerating tube feeds. Positive BM. 07/09: Resting in bed on PSV trial in no acute distress. Tmax 99.4. Tolerating tube feeds. Positive BM. Neurologically unchanged. Subjective 07/10: Continues on PSV trial distress. Tmax 100.1. Currently 99.5. Tolerating tube feeds. Positive BM. Eyes and mouth are open. Objective Vital Signs Date Time Temp Pulse Resp B/P Pulse Ox O2 Delivery O2 Flow Rate FiO2 07/10/16 06:00 117 07/10/16 04:31 100 30 07/10/16 04:00 99.5 13 145/97 Intake and Output 07/09/16 07/09/16 07/10/16 08:00 16:00 00:00 Intake Total 478 ml 658 ml 465 ml Output Total 325 ml 275 ml 450 ml Balance 153 ml 383 ml 15 ml Result Diagram: 07/09/16 0440 07/09/16 0440 Imaging Last Impressions Chest X-Ray 07/04/16 0600 Signed Impressions: Service Date/Time: Monday, July 04, 2016 03:01 - CONCLUSION: Mild increasing atelectasis in the right lung base. Andi Luna MD Abdomen X-Ray 06/26/16 0000 Signed Impressions: Service Date/Time: June 13:08 - CONCLUSION: 1. Nasogastric tube in good position. Benign-appearing bowel gas pattern. Jd Underwood MD Abdomen/Pelvis CT 06/17/16 Signed Impressions: Service Date/Time: Friday, June 17, 2016 04:12 - CONCLUSION: 1. New bibasilar atelectasis. 2. There is some mild dilatation of the small bowel. There is a mild to moderate distention of the colon down to the rectum suggestive of a diffuse adynamic ileus. No definite mechanical obstruction is seen. 3. Otherwise, no other significant changes compared to the prior study. Andi Luna MD Brain MRI 06/15/16 Signed Impressions: Service Date/Time: Wednesday, June 15, 2016 09:10 - CONCLUSION: No acute abnormality seen. 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 Reginaldo Cain MD Head Magnetic Resonance Angiography 06/14/16 Signed Impressions: Service Date/Time: Tuesday, June 14, 2016 18:23 - CONCLUSION: No evidence of vessel truncation or aneurysm. Simone Graham MD Liver Ultrasound 06/13/16 Signed Impressions: Service Date/Time: Monday, June 13, 2016 09:42 - CONCLUSION: 1. Small amount free fluid identified medial to the lower pole of the right kidney. 2. Slight increased hepatic echotexture suggesting some degree of fatty infiltration. 3. Please note the body and tail of the pancreas are obscured by overlying bowel gas. The head neck and uncinate process are sonographically intact. Mauro Leslie MD Head CT 06/12/16 1657 Signed Impressions: Service Date/Time: May 21:37 - CONCLUSION: Unremarkable study. Jose Martinez MD Renal Ultrasound 06/12/16 Signed Impressions: Service Date/Time: May 23:51 - CONCLUSION: 1. Mild pelvocaliectasis on the right. No hydronephrosis involving either kidney. Simone Woody Jr., MD Chest CT 06/12/16 Signed Impressions: Service Date/Time: May 21:39 - CONCLUSION: Right upper lobe parenchymal process may represent pneumonia, however follow up is suggested with repeat noncontrast chest CT in 2-4 weeksafter appropriate clinical therapy. Jose Martinez MD Objective Remarks GENERAL: 56-year-old female, eyes and mouth are open on ventilator via trach. SKIN: Warm and dry. No rash HEAD: Normocephalic. EYES: Pallor present, No scleral icterus. No injection or drainage. NECK: Supple, trachea midline. Orotracheally intubated CARDIOVASCULAR: Tachycardic, RR. S1, S2 no S4. Without murmurs, gallops, or rubs. RESPIRATORY: Transmitted upper airway sounds. Diminished breath sounds in bases.. No wheezing noted GASTROINTESTINAL: Abdomen soft, non-tender, nondistended. Noted PEG in situ MUSCULOSKELETAL: No deformities. Dorsalis pedis posterior be else's are bilaterally palpable no decubitus ulcer EXTREMITIES: No significant peripheral edema NEURO: Eyes are open, mouth is open. Positive gag with trach suctioning. Withdraws to pain. A/P Assessment and Plan Neuro: Encephalopathy Left basal ganglia/IC CVA On no sedation. Monitor neuro status and avoid any sedatives. CT brain: No acute findings. UDS+ +Benzos MRA brain 06/14- Unremarkable. MRI brain 06/14 revealed lacunar infarct left basal ganglia left posterior and internal capsule s/p LP showed clear CSF and 15 WBC. EEG: Bihemispheric slowing, small sharp waves b/l Neuro is following- Dr. Boggs, On Keppra 500mg by PEG Q12 Continue Lyrica 25 mg twice a day encircling 100 mg by mouth daily/home medications Continue baclofen 10 mg 3 times a day for muscle spasms Pulm: Vent dependent respiratory failure Acute hypoxemic respiratory failure Probable aspiration/HCAP with R volume loss Continue with vent support keep sat >92% Bronchodilators every 6 hours and as needed, ICU vent bundle. s/p perc trach placed /, 8.[address] Raad ignacio, trach care, SBT daily as cherie. Continue CPAP trials. Attempt TP Strahl today CV: Hypertension Monitor HR and BP keep MAP>65mmHg. Increase Lopressor 50 mg Q12 for HR/BP control Restart Norvasc 5 mill grams by mouth daily/home medication : Monitor renal function, I/O's, avoid nephrotoxins. Electrolytes replacement per protocol. Renal US: No hydronephrosis. Renal is following- Dr. Jumani GI/liver: Gastroesophageal reflux disease On Pepcid 20 milligrams by PEG qhs, tube feeds with Glucerna 1.5@60ml/hr Monitor LFT's ( trending down), US liver: Fatty liver. Elevated urinary copper - GI is following. CT abdomen/pelvis 06/17- findings suggestive of adynamic ileus. No mechanical obstruction. On Reglan 5mg Iv q8 PRN, Miralax, Lactulose 06/[address] Davis ID: Staph aureus pneumonia - Off abx monitor for signs of infections ( Fever, WBC) Pertinent cultures: 06/12 Urine cx: E.coli 06/12 BC: No growth 06/12 CSG: NGTD 06/15 urine: E coli, sputum: MSSA 06/26: Blood sputum and urine cultures sent pending Antifungal cream added to medication regimen per general surgery, anterior and lateral neck areas Heme: Thrombocytopenia-resolved Normocytic anemia Monitor CBC, and coags. Hep plt ab negative. 06/28-Transfused 2 units of PRBCs Endo: SSI for glycemic control, TSH level: 2.5 GI Prophylaxis with Pepcid DVT prophylaxis with SCD's, place on Heparin SQ Palliative care Dr. Venegas, following to assist with deciding goals of therapy. Patient's wishes to continue full CODE STATUS at this time, and continued aggressive treatment/therapies. Case management pending LTAC placement Dispo: Level 2 Dung Jeffries MD July 10, 2016 09:01
[2016-07-10] MEDS: LABETALOL HCL 100 MG/20 ML VIAL IV PUSH PRN (12:04)
[2016-07-10] MEDS: hydrALAZINE HCL 20 MG/ML VIAL IV PUSH PRN (23:29)
[2016-07-11] VITALS (18 sets, daily range): BP systolic 96–162; BP diastolic 66–84; PULSE 100–127; RESP 10–30; TEMP 98.4–101.1; O2SAT 95–100
[2016-07-11] MEDS: LABETALOL HCL 100 MG/20 ML VIAL IV PUSH PRN ×2 (02:05→11:24)
[2016-07-11] MEDS: CHLORHEXIDINE GLUCONATE 2 % 1 PACK (2 CLOTHS) TOP SCH (04:00)
[2016-07-11] MEDS: RESP: ALBUTEROL 2.5 MG/IPRATROPIUM 0.5 MG NEB (SCH) NEB ×4 (04:25→21:52)
[2016-07-11] MEDS: NYSTATIN 100,000 U/GM PWD 15 GM BTL TOPICAL SCH ×3 (04:57→21:10)
[2016-07-11] MEDS: METOPROLOL TARTRATE 50 MG TAB PO SCH ×3 (04:57→21:09)
[2016-07-11 06:47] LABS: AUTOMATED NEUTROPHIL # 8.4 TH/MM3 (1.8-7.7); BASOPHIL % 0.3 % (0.0-2.0); EOSINOPHIL # 0.1 TH/MM3 (0-0.4); EOSINOPHIL % 0.7 % (0.0-4.0); HEMATOCRIT 33.2 % (35.0-46.0); HEMO FLAGS DIFF FINAL; LYMPH % 13.4 % (9.0-44.0); LYMPHOCYTE # 1.5 TH/MM3 (1.0-4.8); MEAN CELL VOLUME 82.6 FL (80.0-100.0); MEAN CORPUSCULAR HEMOGLOBIN 26.6 PG (27.0-34.0); MEAN CORPUSCULAR HGB CONC 32.2 % (32.0-36.0); MONO % 9.3 % (0.0-8.0); NEUT % 76.3 % (16.0-70.0); PLATELET COUNT 219 TH/MM3 (150-450); RED BLOOD COUNT 4.02 MIL/MM3 (4.00-5.30); WHITE BLOOD COUNT 10.9 TH/MM3 (4.0-11.0)
[2016-07-11 07:18] LABS: ALKALINE PHOSPHATASE 109 U/L (45-117); ALT (GPT) 23 U/L (10-53); ANION GAP 8 MEQ/L (5-15); AST (GOT) 15 U/L (15-37); BICARBONATE 27.9 MEQ/L (21.0-32.0); BLOOD UREA NITROGEN 12 MG/DL (7-18); CHLORIDE 104 MEQ/L (98-107); GLOMERULAR FILTRATION RATE 190 ML/MIN (>89); MAGNESIUM 2.3 MG/DL (1.5-2.5); POTASSIUM 4.3 MEQ/L (3.5-5.1); SODIUM (NA) 140 MEQ/L (136-145); TOTAL BILIRUBIN ADULT 0.3 MG/DL (0.2-1.0)
[2016-07-11] MEDS: CHLORHEXIDINE 0.12% (ORAL KIT) 15 ML CUP MT SCH ×2 (07:58→21:10)
[2016-07-11] MEDS: amLODIPine BESYLATE 5 MG TAB PO SCH (08:01)
[2016-07-11] MEDS: SODIUM CHLORIDE 0.9% FLUSH 10 ML FLUSH IV FLUSH PRN (08:01)
[2016-07-11] MEDS: SODIUM CHLORIDE 0.9% FLUSH 10 ML FLUSH IV FLUSH SCH ×2 (08:01→21:10)
[2016-07-11] MEDS: PREGABALIN 75 MG CAP PO SCH ×2 (08:02→21:09)
[2016-07-11] MEDS: HEPARIN SODIUM - SQ 10,000 UNITS/ML VIAL SQ SCH ×2 (08:02→21:09)
[2016-07-11] MEDS: BACLOFEN 10 MG TAB PO SCH ×3 (08:02→18:04)
[2016-07-11] MEDS: FAMOTIDINE 20 MG TAB NG SCH (08:02)
[2016-07-11] MEDS: levETIRAcetam 500 MG/5 ML UDC NG SCH ×2 (08:02→21:09)
[2016-07-11] MEDS: POLYETHYLENE GLYCOL 17 GM PKG PO SCH (09:00)
[2016-07-11] MEDS: LACTULOSE SYRUP 20 GM/30 ML CUP PO SCH ×2 (09:00→21:00)
--- NOTE | 2016-07-11 13:10 | HHI.CCPN ---
Subjective Remarks/Hospital Course 56-year-old female brought in by EMS emergently as altered mental status, hypoxia and temperature 104. Patient has a history of CVA many years ago. Per caregiver she didn't feel well since yesterday and wasn't taking any of medications including baclofen. Patient was unable to communicate due to her altered mental status. As per EMS not much history was available from the family but she has history of CVA as baseline but communicates. In the emergency department patient's oxygen saturation was low 70s upon EMS arrival. They had her on oxygen via nonrebreather and sats of 93%. GCS was 6 and she was intubated by ER attending for an airway protection. 06/13 Patient is sedated with Versed and on Bicarb drip. Renal function is improving with Cr: 2.12 from 3.19 UO: 1350ml since yesterday. Afebrile. 06/14 Patient remains sedated and intubated. Afebrile. Renal function continue to improve with Cr: 1.18 today from 1.53. 06/15 No acute events overnight. Off sedation remains intubated. Patient tolerated CPAP all day yesterday. MRA brain last night is unremarkable. T:99.9 06/16 Patient remains intubated off sedation. Afebrile. Tolerated CPAP all day yesterday remains encephalopathic. 06/17 No acute events overnight. Patient is able to open her eyes but does not follow commands. T: 100.1 last night. 06/18: Remains encephalopathic, orally intubated on mechanical ventilation. 06/19: Remains encephalopathic, orally intubated on mechanical ventilation. Daily C Pap trials ongoing. 06/20: Remains encephalopathic, orally intubated on mechanical ventilation. Daily C Pap trials. Tube feeds resumed. 06/21: More awake however not following commands. Remains orally intubated on mechanical ventilation. Tolerating tube feeds. Daily C Pap trials ongoing. 06/22: Encephalopathic though more awake, arousable. Not following commands. Remains orally intubated on mechanical ventilation. Tolerating tube feeds. Daily C Pap trials. 06/23: Awake, not following commands. Remains orally intubated on mechanical ventilation. Failing C Pap trials. Tolerating tube feeds. 06/24: Opening eyes, blinks on command. Remains orally intubated on mechanical ventilation. Tolerating tube feeds. Gets tachypneic with low volumes on dropping pressure-support at C Pap trials. We'll initiate diuresis as patient isn't significantly positive fluid balance since admission due to fluids administered for sepsis which now appears to be under control. 06/25: Awake, appears to focus. Extubated today following C Pap trial. Continue diuresis. 06/26: CCM reconsult note. Patient was extubated yesterday 06/25 and apparently was doing well initially. Overnight was placed on a 100% percent nonrebreather. I was called to the bedside emergently by Denny PATINO, today around 12.30 pm, patient was more unresponsive and hypoxemic on 100% nonrebreather. On my evaluation patient's eyes were open but nonresponsive, shallow breathing. Oxygen saturation 80% on 100 percent nonrebreather. Emergently intubated and placed on mechanical ventilation. Moderate amount of white secretions at glottic opening. CXR shows RLL infiltrate with volume loss? aspiration. Sputum cx. Discuss with ID Dr. Ortiz, will place on broad-spectrum antibiotics with Zosyn 06/27: Tmax 99.6 The patient was emergently reintubated yesterday, overnight no increasing ventilatory requirements were noted. The patient underwent a bronchoscopy with BAL this a.m., cultures were sent. Plan for PEG placement today. 06/28: Tmax 98.4 The patient underwent PEG placement yesterday, will resume tube feedings today. Mucomyst was initiated yesterday status post bronchial noted mucous plugs, with thick tenacious secretions. Will tentatively plan for tracheostomy next week, if unable to wean, and increasing ventilatory requirements. 06/29: She was noted to have a drop in hemoglobin last night, and received 2 units of packed red blood cells. Hemoccult has been ordered stat CBC to be followed up. No obvious signs of bleeding noted. 06/30: Hgb stable. No change in neuro status. will attempt CPAP trials. Palliative medicine, Dr. Venegas to schedule goals of care now with reintubation. 07/01: Remains encephalopathic. Hemoglobin stable at 10.0. No acute changes overnight. Discussion with palliative care team and , he would like aggressive measures/treatments to continue to include tracheostomy. General surgery has been consulted. 07/02: Afebrile. No acute changes overnight. Patient was evaluated by general surgery plans for tracheostomy in the next few days with coordination. 07/03: Afebrile. The patient was underwent percutaneous tracheostomy at bedside. Chest x-ray is pending. 07/04 No acute events overnight. s/p trach yesterday. Tolerating tube feeds. 07/05: Afebrile. The patient tolerated CPAP trials for 8 hours yesterday. She is on CPAP trials today. 07/06: The patient tolerated CPAP trials for 10 hours yesterday. Normotensive. The patient continues have heart rate low 100's. PRN beta samina utilized during the night. 07/07: The patient was placed back on the ventilator during the night last night for a"rest". The patient continues to perform a CPAP trial. The patient was noted to be slightly hypertensive, metoprolol increased to every 8 hours. LTAC placement planned. 07/08: Currently resting in bed in no acute distress. Afebrile. Tolerating tube feeds. Positive BM. 07/09: Resting in bed on PSV trial in no acute distress. Tmax 99.4. Tolerating tube feeds. Positive BM. Neurologically unchanged. 07/10: Continues on PSV trial distress. Tmax 100.1. Currently 99.5. Tolerating tube feeds. Positive BM. Eyes and mouth are open. Subjective 07/11: Currently afebrile. Tolerating tube feeds. Lasted 2 hours on T piece trial today. Currently on PSV trial Objective Vital Signs Date Time Temp Pulse Resp B/P Pulse Ox O2 Delivery O2 Flow Rate FiO2 07/11/16 13:01 100 30 07/11/16 12:00 99.5 123 30 136/81 07/11/16 11:00 T-Piece 07/10/16 20:22 6.00 Intake and Output 07/10/16 07/10/16 07/10/16 07:59 15:59 23:59 Intake Total 470 ml 654 ml 580 ml Output Total 150 ml 450 ml 350 ml Balance 320 ml 204 ml 230 ml Result Diagram: 07/11/16 0555 07/11/16 0555 Imaging Last Impressions Chest X-Ray 07/04/16 0600 Signed Impressions: Service Date/Time: Monday, July 04, 2016 03:01 - CONCLUSION: Mild increasing atelectasis in the right lung base. Andi Luna MD Abdomen X-Ray 06/26/16 Signed Impressions: Service Date/Time: June 13:08 - CONCLUSION: 1. Nasogastric tube in good position. Benign-appearing bowel gas pattern. Jd Underwood MD Abdomen/Pelvis CT 06/17/16 0000 Signed Impressions: Service Date/Time: Friday, June 17, 2016 04:12 - CONCLUSION: 1. New bibasilar atelectasis. 2. There is some mild dilatation of the small bowel. There is a mild to moderate distention of the colon down to the rectum suggestive of a diffuse adynamic ileus. No definite mechanical obstruction is seen. 3. Otherwise, no other significant changes compared to the prior study. Andi Luna MD Brain MRI 06/15/16 Signed Impressions: Service Date/Time: Wednesday, June 15, 2016 09:10 - CONCLUSION: No acute abnormality seen. 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 Reginaldo Cain MD Head Magnetic Resonance Angiography 06/14/16 Signed Impressions: Service Date/Time: Tuesday, June 14, 2016 18:23 - CONCLUSION: No evidence of vessel truncation or aneurysm. Simone Graham MD Liver Ultrasound 06/13/16 Signed Impressions: Service Date/Time: Monday, June 13, 2016 09:42 - CONCLUSION: 1. Small amount free fluid identified medial to the lower pole of the right kidney. 2. Slight increased hepatic echotexture suggesting some degree of fatty infiltration. 3. Please note the body and tail of the pancreas are obscured by overlying bowel gas. The head neck and uncinate process are sonographically intact. Mauro Leslie MD Head CT 06/12/16 1657 Signed Impressions: Service Date/Time: May 21:37 - CONCLUSION: Unremarkable study. Jose Martinez MD Renal Ultrasound 06/12/16 Signed Impressions: Service Date/Time: May 23:51 - CONCLUSION: 1. Mild pelvocaliectasis on the right. No hydronephrosis involving either kidney. Simone Woody Jr., MD Chest CT 06/12/16 Signed Impressions: Service Date/Time: May 21:39 - CONCLUSION: Right upper lobe parenchymal process may represent pneumonia, however follow up is suggested with repeat noncontrast chest CT in 2-4 weeksafter appropriate clinical therapy. Jose Martinez MD Objective Remarks GENERAL: 56-year-old female, eyes and mouth are open on ventilator via trach. SKIN: Warm and dry. No rash HEAD: Normocephalic. EYES: Pallor present, No scleral icterus. No injection or drainage. NECK: Supple, trachea midline. Orotracheally intubated CARDIOVASCULAR: Tachycardic, RR. S1, S2 no S4. Without murmurs, gallops, or rubs. RESPIRATORY: Transmitted upper airway sounds. Diminished breath sounds in bases.. No wheezing noted GASTROINTESTINAL: Abdomen soft, non-tender, nondistended. Noted PEG in situ MUSCULOSKELETAL: No deformities. Dorsalis pedis posterior be else's are bilaterally palpable no decubitus ulcer EXTREMITIES: No significant peripheral edema NEURO: Eyes are open, mouth is open. Positive gag with trach suctioning. Withdraws to pain. A/P Assessment and Plan Neuro: Encephalopathy Left basal ganglia/IC CVA On no sedation. Monitor neuro status and avoid any sedatives. CT brain: No acute findings. UDS+ +Benzos MRA brain 06/14- Unremarkable. MRI brain 06/14 revealed lacunar infarct left basal ganglia left posterior and internal capsule s/p LP showed clear CSF and 15 WBC. EEG: Bihemispheric slowing, small sharp waves b/l Neuro is following- Dr. Boggs, On Keppra 500mg by PEG Q12 Continue Lyrica 25 mg twice a day encircling 100 mg by mouth daily/home medications Continue baclofen 10 mg 3 times a day for muscle spasms Pulm: Vent dependent respiratory failure Acute hypoxemic respiratory failure Probable aspiration/HCAP with R volume loss Continue with vent support keep sat >92% Bronchodilators every 6 hours and as needed, ICU vent bundle. s/p perc trach placed 07/03, 8.[address] Raad ignacio, trach care, SBT daily as cherie. Continue CPAP trials. Attempt TP Strahl today CV: Hypertension Monitor HR and BP keep MAP>65mmHg. Increase Lopressor 50 mg Q12 for HR/BP control Restart Norvasc 5 mill grams by mouth daily/home medication : Monitor renal function, I/O's, avoid nephrotoxins. Electrolytes replacement per protocol. Renal US: No hydronephrosis. Renal is following- Dr. Corral GI/liver: Gastroesophageal reflux disease On Pepcid 20 milligrams by PEG qhs, tube feeds with Glucerna 1.5@60ml/hr Monitor LFT's ( trending down), US liver: Fatty liver. Elevated urinary copper - GI is following. CT abdomen/pelvis 06/17- findings suggestive of adynamic ileus. No mechanical obstruction. On Reglan 5mg Iv q8 PRN, Miralax, Lactulose 06/[address] Davis ID: Staph aureus pneumonia - Off abx monitor for signs of infections ( Fever, WBC) Pertinent cultures: 06/12 Urine cx: E.coli 06/12 BC: No growth 06/12 CSG: NGTD 06/15 urine: E coli, sputum: MSSA 06/26: Blood sputum and urine cultures sent pending Antifungal cream added to medication regimen per general surgery, anterior and lateral neck areas Heme: Thrombocytopenia-resolved Normocytic anemia Monitor CBC, and coags. Hep plt ab negative. 06/28-Transfused 2 units of PRBCs Endo: SSI for glycemic control, TSH level: 2.5 GI Prophylaxis with Pepcid DVT prophylaxis with SCD's, place on Heparin SQ Palliative care Dr. Venegas, following to assist with deciding goals of therapy. Patient's wishes to continue full CODE STATUS at this time, and continued aggressive treatment/therapies. Case management pending LTAC placement Dispo: Level 2 Dung Jeffries MD July 11, 2016 13:10
[2016-07-11] MEDS: ACETAMINOPHEN 650 MG/20.3 ML UDC PO PRN (16:26)
[2016-07-12] VITALS (19 sets, daily range): BP systolic 117–148; BP diastolic 75–89; PULSE 105–132; RESP 15–21; TEMP 98.8–99.8; O2SAT 96–100
[2016-07-12] MEDS: LABETALOL HCL 100 MG/20 ML VIAL IV PUSH PRN ×3 (02:32→23:13)
[2016-07-12] MEDS: CHLORHEXIDINE GLUCONATE 2 % 1 PACK (2 CLOTHS) TOP SCH (04:00)
[2016-07-12] MEDS: RESP: ALBUTEROL 2.5 MG/IPRATROPIUM 0.5 MG NEB (SCH) NEB ×4 (04:29→21:04)
[2016-07-12] MEDS: METOPROLOL TARTRATE 50 MG TAB PO SCH ×2 (05:04→16:19)
[2016-07-12] MEDS: NYSTATIN 100,000 U/GM PWD 15 GM BTL TOPICAL SCH ×3 (05:04→21:28)
[2016-07-12] MEDS: HEPARIN SODIUM - SQ 10,000 UNITS/ML VIAL SQ SCH ×2 (08:14→21:27)
[2016-07-12] MEDS: BACLOFEN 10 MG TAB PO SCH ×3 (08:14→16:19)
[2016-07-12] MEDS: LACTULOSE SYRUP 20 GM/30 ML CUP PO SCH ×2 (08:14→21:27)
[2016-07-12] MEDS: levETIRAcetam 500 MG/5 ML UDC NG SCH ×2 (08:14→21:27)
[2016-07-12] MEDS: POLYETHYLENE GLYCOL 17 GM PKG PO SCH (08:14)
[2016-07-12] MEDS: SODIUM CHLORIDE 0.9% FLUSH 10 ML FLUSH IV FLUSH SCH ×2 (08:15→21:27)
[2016-07-12] MEDS: amLODIPine BESYLATE 5 MG TAB PO SCH (08:15)
[2016-07-12] MEDS: PREGABALIN 75 MG CAP PO SCH ×2 (08:15→21:27)
[2016-07-12] MEDS: FAMOTIDINE 20 MG TAB NG SCH (08:15)
[2016-07-12] MEDS: CHLORHEXIDINE 0.12% (ORAL KIT) 15 ML CUP MT SCH ×2 (08:15→21:26)
--- NOTE | 2016-07-12 12:58 | HHI.CCPN ---
Subjective Remarks/Hospital Course 56-year-old female brought in by EMS emergently as altered mental status, hypoxia and temperature 104. Patient has a history of CVA many years ago. Per caregiver she didn't feel well since yesterday and wasn't taking any of medications including baclofen. Patient was unable to communicate due to her altered mental status. As per EMS not much history was available from the family but she has history of CVA as baseline but communicates. In the emergency department patient's oxygen saturation was low 70s upon EMS arrival. They had her on oxygen via nonrebreather and sats of 93%. GCS was 6 and she was intubated by ER attending for an airway protection. 06/13 Patient is sedated with Versed and on Bicarb drip. Renal function is improving with Cr: 2.12 from 3.19 UO: 1350ml since yesterday. Afebrile. 06/14 Patient remains sedated and intubated. Afebrile. Renal function continue to improve with Cr: 1.18 today from 1.53. 06/15 No acute events overnight. Off sedation remains intubated. Patient tolerated CPAP all day yesterday. MRA brain last night is unremarkable. T:99.9 06/16 Patient remains intubated off sedation. Afebrile. Tolerated CPAP all day yesterday remains encephalopathic. 06/17 No acute events overnight. Patient is able to open her eyes but does not follow commands. T: 100.1 last night. 06/18: Remains encephalopathic, orally intubated on mechanical ventilation. 06/19: Remains encephalopathic, orally intubated on mechanical ventilation. Daily C Pap trials ongoing. 06/20: Remains encephalopathic, orally intubated on mechanical ventilation. Daily C Pap trials. Tube feeds resumed. 06/21: More awake however not following commands. Remains orally intubated on mechanical ventilation. Tolerating tube feeds. Daily C Pap trials ongoing. 06/22: Encephalopathic though more awake, arousable. Not following commands. Remains orally intubated on mechanical ventilation. Tolerating tube feeds. Daily C Pap trials. 06/23: Awake, not following commands. Remains orally intubated on mechanical ventilation. Failing C Pap trials. Tolerating tube feeds. 06/24: Opening eyes, blinks on command. Remains orally intubated on mechanical ventilation. Tolerating tube feeds. Gets tachypneic with low volumes on dropping pressure-support at C Pap trials. We'll initiate diuresis as patient isn't significantly positive fluid balance since admission due to fluids administered for sepsis which now appears to be under control. 06/25: Awake, appears to focus. Extubated today following C Pap trial. Continue diuresis. 06/26: CCM reconsult note. Patient was extubated yesterday 06/25 and apparently was doing well initially. Overnight was placed on a 100% percent nonrebreather. I was called to the bedside emergently by Denny PATINO, today around 12.30 pm, patient was more unresponsive and hypoxemic on 100% nonrebreather. On my evaluation patient's eyes were open but nonresponsive, shallow breathing. Oxygen saturation 80% on 100 percent nonrebreather. Emergently intubated and placed on mechanical ventilation. Moderate amount of white secretions at glottic opening. CXR shows RLL infiltrate with volume loss? aspiration. Sputum cx. Discuss with ID Dr. Ortiz, will place on broad-spectrum antibiotics with Zosyn 06/27: Tmax 99.6 The patient was emergently reintubated yesterday, overnight no increasing ventilatory requirements were noted. The patient underwent a bronchoscopy with BAL this a.m., cultures were sent. Plan for PEG placement today. 06/28: Tmax 98.4 The patient underwent PEG placement yesterday, will resume tube feedings today. Mucomyst was initiated yesterday status post bronchial noted mucous plugs, with thick tenacious secretions. Will tentatively plan for tracheostomy next week, if unable to wean, and increasing ventilatory requirements. 06/29: She was noted to have a drop in hemoglobin last night, and received 2 units of packed red blood cells. Hemoccult has been ordered stat CBC to be followed up. No obvious signs of bleeding noted. 06/30: Hgb stable. No change in neuro status. will attempt CPAP trials. Palliative medicine, Dr. Venegas to schedule goals of care now with reintubation. 07/01: Remains encephalopathic. Hemoglobin stable at 10.0. No acute changes overnight. Discussion with palliative care team and , he would like aggressive measures/treatments to continue to include tracheostomy. General surgery has been consulted. 07/02: Afebrile. No acute changes overnight. Patient was evaluated by general surgery plans for tracheostomy in the next few days with coordination. 07/03: Afebrile. The patient was underwent percutaneous tracheostomy at bedside. Chest x-ray is pending. 07/04 No acute events overnight. s/p trach yesterday. Tolerating tube feeds. 07/05: Afebrile. The patient tolerated CPAP trials for 8 hours yesterday. She is on CPAP trials today. 07/06: The patient tolerated CPAP trials for 10 hours yesterday. Normotensive. The patient continues have heart rate low 100's. PRN beta samina utilized during the night. 07/07: The patient was placed back on the ventilator during the night last night for a"rest". The patient continues to perform a CPAP trial. The patient was noted to be slightly hypertensive, metoprolol increased to every 8 hours. LTAC placement planned. 07/08: Currently resting in bed in no acute distress. Afebrile. Tolerating tube feeds. Positive BM. 07/09: Resting in bed on PSV trial in no acute distress. Tmax 99.4. Tolerating tube feeds. Positive BM. Neurologically unchanged. 07/10: Continues on PSV trial distress. Tmax 100.1. Currently 99.5. Tolerating tube feeds. Positive BM. Eyes and mouth are open. 07/11: Currently afebrile. Tolerating tube feeds. Lasted 2 hours on T piece trial today. Currently on PSV trial Subjective 07/12: Attempting for hours and T piece today. Tmax 101.1. Currently 99.8. Moves head aware in room. Eyes and mouth are both open. Objective Vital Signs Date Time Temp Pulse Resp B/P Pulse Ox O2 Delivery O2 Flow Rate FiO2 07/12/16 09:46 99 T-piece 6.00 35 07/12/16 08:00 107 07/12/16 08:00 99.2 18 137/87 Intake and Output 07/11/16 07/11/16 07/12/16 08:00 16:00 00:00 Intake Total 400 ml 620 ml 530 ml Output Total 300 ml 350 ml 200 ml Balance 100 ml 270 ml 330 ml Result Diagram: 07/11/16 0555 07/11/16 0555 Imaging Last Impressions Chest X-Ray 07/04/16 0600 Signed Impressions: Service Date/Time: Monday, July 04, 2016 03:01 - CONCLUSION: Mild increasing atelectasis in the right lung base. Andi Luna MD Abdomen X-Ray 06/26/16 0000 Signed Impressions: Service Date/Time: June 13:08 - CONCLUSION: 1. Nasogastric tube in good position. Benign-appearing bowel gas pattern. Jd Underwood MD Abdomen/Pelvis CT 06/17/16 0000 Signed Impressions: Service Date/Time: Friday, June 17, 2016 04:12 - CONCLUSION: 1. New bibasilar atelectasis. 2. There is some mild dilatation of the small bowel. There is a mild to moderate distention of the colon down to the rectum suggestive of a diffuse adynamic ileus. No definite mechanical obstruction is seen. 3. Otherwise, no other significant changes compared to the prior study. Andi Luna MD Brain MRI 06/15/16 0000 Signed Impressions: Service Date/Time: Wednesday, June 15, 2016 09:10 - CONCLUSION: No acute abnormality seen. 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 Reginaldo Cain MD Head Magnetic Resonance Angiography 06/14/16 0000 Signed Impressions: Service Date/Time: Tuesday, June 14, 2016 18:23 - CONCLUSION: No evidence of vessel truncation or aneurysm. Simone Graham MD Liver Ultrasound 06/13/16 0000 Signed Impressions: Service Date/Time: Monday, June 13, 2016 09:42 - CONCLUSION: 1. Small amount free fluid identified medial to the lower pole of the right kidney. 2. Slight increased hepatic echotexture suggesting some degree of fatty infiltration. 3. Please note the body and tail of the pancreas are obscured by overlying bowel gas. The head neck and uncinate process are sonographically intact. Mauro Leslie MD Head CT 06/12/16 1657 Signed Impressions: Service Date/Time: May 21:37 - CONCLUSION: Unremarkable study. Jose Martinez MD Renal Ultrasound 06/12/16 0000 Signed Impressions: Service Date/Time: May 23:51 - CONCLUSION: 1. Mild pelvocaliectasis on the right. No hydronephrosis involving either kidney. Simone Woody Jr., MD Chest CT 06/12/16 0000 Signed Impressions: Service Date/Time: May 21:39 - CONCLUSION: Right upper lobe parenchymal process may represent pneumonia, however follow up is suggested with repeat noncontrast chest CT in 2-4 weeksafter appropriate clinical therapy. Jose Martinez MD Objective Remarks GENERAL: 56-year-old female, eyes and mouth are open on ventilator via trach. SKIN: Warm and dry. No rash HEAD: Normocephalic. EYES: Pallor present, No scleral icterus. No injection or drainage. NECK: Supple, trachea midline. Orotracheally intubated CARDIOVASCULAR: Tachycardic, RR. S1, S2 no S4. Without murmurs, gallops, or rubs. RESPIRATORY: Transmitted upper airway sounds. Diminished breath sounds in bases.. No wheezing noted GASTROINTESTINAL: Abdomen soft, non-tender, nondistended. Noted PEG in situ MUSCULOSKELETAL: No deformities. Dorsalis pedis posterior be else's are bilaterally palpable no decubitus ulcer EXTREMITIES: No significant peripheral edema NEURO: Eyes are open, mouth is open. Positive gag with trach suctioning. Withdraws to pain. A/P Assessment and Plan Neuro: Encephalopathy Left basal ganglia/IC CVA On no sedation. Monitor neuro status and avoid any sedatives. CT brain: No acute findings. UDS+ +Benzos MRA brain 06/14- Unremarkable. MRI brain 06/14 revealed lacunar infarct left basal ganglia left posterior and internal capsule s/p LP showed clear CSF and 15 WBC. EEG: Bihemispheric slowing, small sharp waves b/l Neuro is following- Dr. Boggs, On Keppra 500mg by PEG Q12 Continue Lyrica 25 mg twice a day encircling 100 mg by mouth daily/home medications Continue baclofen 10 mg 3 times a day for muscle spasms Pulm: Vent dependent respiratory failure Acute hypoxemic respiratory failure Probable aspiration/HCAP with R volume loss Continue with vent support keep sat >92% Bronchodilators every 6 hours and as needed, ICU vent bundle. s/p perc trach placed 5/, 8.[address] Raad ignacio, trach care, SBT daily as cherie. Continue CPAP trials. Attempt TP 4 hours today CV: Hypertension Monitor HR and BP keep MAP>65mmHg. Increase Lopressor 50 mg Q12 for HR/BP control Restart Norvasc 5 mill grams by mouth daily/home medication : Monitor renal function, I/O's, avoid nephrotoxins. Electrolytes replacement per protocol. Renal US: No hydronephrosis. Renal is following- Dr. Corral GI/liver: Gastroesophageal reflux disease On Pepcid 20 milligrams by PEG qhs, tube feeds with Glucerna 1.5@60ml/hr Monitor LFT's ( trending down), US liver: Fatty liver. Elevated urinary copper - GI is following. CT abdomen/pelvis 06/17- findings suggestive of adynamic ileus. No mechanical obstruction. On Reglan 5mg Iv q8 PRN, Miralax, Lactulose 06/[address] Davis ID: Staph aureus pneumonia - Off abx monitor for signs of infections ( Fever, WBC) Pertinent cultures: 06/12 Urine cx: E.coli 06/12 BC: No growth 06/12 CSG: NGTD 06/15 urine: E coli, sputum: MSSA 06/26: Blood sputum negative and urine cultures Pseudomonas 06/27 -bronchoscopy no growth Antifungal cream added to medication regimen per general surgery, anterior and lateral neck areas Heme: Thrombocytopenia-resolved Normocytic anemia Monitor CBC, and coags. Hep plt ab negative. 06/28-Transfused 2 units of PRBCs Endo: SSI for glycemic control, TSH level: 2.5 GI Prophylaxis with Pepcid DVT prophylaxis with SCD's, place on Heparin SQ Palliative care Dr. Venegas, following to assist with deciding goals of therapy. Patient's wishes to continue full CODE STATUS at this time, and continued aggressive treatment/therapies. Case management pending LTAC placement Dispo: Level 2 Dung Jeffries MD July 12, 2016 12:58
--- NOTE | 2016-07-12 14:38 | RADRPT ---
EXAM DATE/TIME: 07/12/2016 13:43 [facility] COMPARISON: CHEST SINGLE AP, July 04, 2016, 3:01. INDICATIONS : Fever. MEDICAL HISTORY : Stroke. SURGICAL HISTORY : None. ENCOUNTER: Subsequent ACUITY: 1 month PAIN SCORE: Non-responsive. LOCATION: Bilateral chest FINDINGS: Single AP view of the chest. Tracheostomy tube remains in place. No evidence of focal pulmonary conso lidation. No evidence of pleural effusion or pneumothorax. CONCLUSION: No acute cardiopulmonary disease identified. Chalo Courtney MD on July 12, 2016 at 14:36 Board Certified Radiologist. This report was verified electronically.
--- NOTE | 2016-07-12 18:41 | HHI.IDPN ---
Subjective Subjective Remarks pt is having intermittent feer up to 101.1 in the last 24-36 hrs Afebrille today Not much secretion Unchanged neurologically regular BMs Antibiotics none Past Medical History Reviewed Allergies: Coded Allergies: DO NOT USE (Verified Allergy, Mild, Hallucinations, 06/12/16) Objective . Vital Signs Date Time Temp Pulse Resp B/P Pulse Ox O2 Delivery O2 Flow Rate FiO2 07/12/16 18:00 108 07/12/16 16:47 98 T-piece 6.00 35 07/12/16 16:00 98.8 126 18 148/83 100 07/12/16 16:00 126 07/12/16 14:00 128 07/12/16 13:37 99 30 07/12/16 12:00 124 07/12/16 12:00 30 07/12/16 12:00 99.8 124 20 146/83 98 07/12/16 10:00 120 07/12/16 09:46 99 T-piece 6.00 35 07/12/16 08:00 30 07/12/16 08:00 107 07/12/16 08:00 99.2 107 18 137/87 100 07/12/16 07:55 100 30 07/12/16 06:00 105 07/12/16 04:29 100 30 07/12/16 04:00 99.8 117 15 134/89 100 07/12/16 04:00 118 07/12/16 04:00 30 07/12/16 02:00 120 07/12/16 01:49 100 30 07/12/16 00:00 99.3 111 21 133/85 100 07/12/16 00:00 30 07/12/16 00:00 111 07/11/16 22:00 109 07/11/16 21:58 100 30 07/11/16 20:00 99.4 101 18 96/66 100 07/11/16 20:00 101 07/11/16 20:00 30 07/11/16 07/11/16 07/12/16 15:00 23:00 07:00 Intake Total 620 ml 530 ml 677 ml Output Total 350 ml 200 ml 225 ml Balance 270 ml 330 ml 452 ml Tube Feeding 520 ml 380 ml 427 ml Other 100 ml 150 ml 250 ml Output Urine Total 350 ml 200 ml 225 ml # Bowel Movements 2 1 . Laboratory Tests Test 07/11/16 05:55 White Blood Count 10.9 TH/MM3 Red Blood Count 4.02 MIL/MM3 Hemoglobin 10.7 GM/DL Hematocrit 33.2 % Mean Corpuscular Volume 82.6 FL Mean Corpuscular Hemoglobin 26.6 PG Mean Corpuscular Hemoglobin 32.2 % Concent Red Cell Distribution Width 17.0 % Platelet Count 219 TH/MM3 Mean Platelet Volume 10.4 FL Neutrophils (%) (Auto) 76.3 % Lymphocytes (%) (Auto) 13.4 % Monocytes (%) (Auto) 9.3 % Eosinophils (%) (Auto) 0.7 % Basophils (%) (Auto) 0.3 % Neutrophils # (Auto) 8.4 TH/MM3 Lymphocytes # (Auto) 1.5 TH/MM3 Monocytes # (Auto) 1.0 TH/MM3 Eosinophils # (Auto) 0.1 TH/MM3 Basophils # (Auto) 0.0 TH/MM3 CBC Comment DIFF FINAL Differential Comment Laboratory Tests Test 07/11/16 05:55 Sodium Level 140 MEQ/L Potassium Level 4.3 MEQ/L Chloride Level 104 MEQ/L Carbon Dioxide Level 27.9 MEQ/L Anion Gap 8 MEQ/L Blood Urea Nitrogen 12 MG/DL Creatinine 0.42 MG/DL Estimat Glomerular Filtration 190 ML/MIN Rate Random Glucose 107 MG/DL Calcium Level 9.3 MG/DL Phosphorus Level 3.7 MG/DL Magnesium Level 2.3 MG/DL Total Bilirubin 0.3 MG/DL Aspartate Amino Transf 15 U/L (AST/SGOT) Alanine Aminotransferase 23 U/L (ALT/SGPT) Alkaline Phosphatase 109 U/L Total Protein 8.3 GM/DL Albumin 2.5 GM/DL Imaging Last Impressions Chest X-Ray 07/12/16 0000 Signed Impressions: Service Date/Time: Tuesday, July 12, 2016 13:43 - CONCLUSION: No acute cardiopulmonary disease identified. Chalo Courtney MD Abdomen X-Ray 06/26/16 0000 Signed Impressions: Service Date/Time: June 13:08 - CONCLUSION: 1. Nasogastric tube in good position. Benign-appearing bowel gas pattern. Jd Underwood MD Abdomen/Pelvis CT 06/17/16 0000 Signed Impressions: Service Date/Time: Friday, June 17, 2016 04:12 - CONCLUSION: 1. New bibasilar atelectasis. 2. There is some mild dilatation of the small bowel. There is a mild to moderate distention of the colon down to the rectum suggestive of a diffuse adynamic ileus. No definite mechanical obstruction is seen. 3. Otherwise, no other significant changes compared to the prior study. Andi Luna MD Brain MRI 06/15/16 Signed Impressions: Service Date/Time: Wednesday, June 15, 2016 09:10 - CONCLUSION: No acute abnormality seen. 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 Reginaldo Cain MD Head Magnetic Resonance Angiography 06/14/16 Signed Impressions: Service Date/Time: Tuesday, June 14, 2016 18:23 - CONCLUSION: No evidence of vessel truncation or aneurysm. Simone Graham MD Liver Ultrasound 06/13/16 Signed Impressions: Service Date/Time: Monday, June 13, 2016 09:42 - CONCLUSION: 1. Small amount free fluid identified medial to the lower pole of the right kidney. 2. Slight increased hepatic echotexture suggesting some degree of fatty infiltration. 3. Please note the body and tail of the pancreas are obscured by overlying bowel gas. The head neck and uncinate process are sonographically intact. Mauro Leslie MD Head CT [id number]/12/[id number] Signed Impressions: Service Date/Time: May 21:37 - CONCLUSION: Unremarkable study. Jose Martinez MD Renal Ultrasound 06/12/16 Signed Impressions: Service Date/Time: May 23:51 - CONCLUSION: 1. Mild pelvocaliectasis on the right. No hydronephrosis involving either kidney. Simone Woody Jr., MD Chest CT 06/12/16 Signed Impressions: Service Date/Time: May 21:39 - CONCLUSION: Right upper lobe parenchymal process may represent pneumonia, however follow up is suggested with repeat noncontrast chest CT in 2-4 weeksafter appropriate clinical therapy. Jose Martinez MD Physical Exam GENERAL: on Tpiece, awake, NAD SKIN: No jaundice, rashes, or lesions. Cool and dry HEYES: Pupils equal and round and reactive. No scleral icterus. No injection or drainage. ENT: Nose without bleeding or purulent drainage. NCARDIOVASCULAR: Regular rate and rhythm without murmurs, gallops, or rubs. No JVD. Peripheral pulses symmetric. RESPIRATORY/CHEST: Bilateral diffuse coarse rhonchi GASTROINTESTINAL: Abdomen soft, no reaction to palpation, not distended. No guarding. Bowel sounds present. Incontinent of liquid brown stool GENITOURINARY: Cortes catheter in place with clear yellow urine MUSCULOSKELETAL: Extremities without clubbing, cyanosis, no significant edema. NEUROLOGICAL: awake alert, tracks, not following commands LINE no evidence of infection : Cortes in place urine looks clear Assessment & Plan Remarks PNA, Staph aureus, clinically resolved - CXR from tooday negative Lymphocytic pleocytosis in CSF - C/S negative - VRDF negative, RPR neg - all clx are negative ARF/CKD, resolved Respiratory failure, on Tpiece, tolerating weaning Leukocytosis, resolved ? reactive Persistent intermittent fever ? source PLAN fu off abx unless stats to show sepsis physiology will chk procalcitonine if persistent unxplained fever consider non infectious causes for fever (DVT, aspiration, medx) chk blood clx chk UA, C+S if indicated dw RN Briseida Lazo MD July 12, 2016 18:41
[2016-07-13] VITALS (19 sets, daily range): BP systolic 108–122; BP diastolic 67–82; PULSE 60–128; RESP 18–28; TEMP 98.6–100.1; O2SAT 96–100
[2016-07-13] MEDS: METOPROLOL TARTRATE 50 MG TAB PO SCH ×4 (00:22→16:46)
[2016-07-13] MEDS: CHLORHEXIDINE GLUCONATE 2 % 1 PACK (2 CLOTHS) TOP SCH (04:00)
[2016-07-13] MEDS: RESP: ALBUTEROL 2.5 MG/IPRATROPIUM 0.5 MG NEB (SCH) NEB ×4 (04:20→20:42)
[2016-07-13 06:04] LABS: HEMATOCRIT 33.5 % (35.0-46.0); MEAN CELL VOLUME 81.2 FL (80.0-100.0); MEAN CORPUSCULAR HEMOGLOBIN 26.6 PG (27.0-34.0); MEAN CORPUSCULAR HGB CONC 32.8 % (32.0-36.0); PLATELET COUNT 278 TH/MM3 (150-450); RED BLOOD COUNT 4.12 MIL/MM3 (4.00-5.30); RED CELL DISTRIBUTION WIDTH 16.4 % (11.6-17.2); REVIEW FLAG FINAL; WHITE BLOOD COUNT 14.9 TH/MM3 (4.0-11.0)
[2016-07-13] MEDS: NYSTATIN 100,000 U/GM PWD 15 GM BTL TOPICAL SCH ×3 (06:22→21:13)
[2016-07-13] MEDS: LABETALOL HCL 100 MG/20 ML VIAL IV PUSH PRN (06:30)
[2016-07-13 06:35] LABS: BICARBONATE 27.5 MEQ/L (21.0-32.0); POTASSIUM 4.2 MEQ/L (3.5-5.1)
[2016-07-13] MEDS: FAMOTIDINE 20 MG TAB NG SCH (07:53)
[2016-07-13] MEDS: POLYETHYLENE GLYCOL 17 GM PKG PO SCH (07:53)
[2016-07-13] MEDS: amLODIPine BESYLATE 5 MG TAB PO SCH (07:53)
[2016-07-13] MEDS: BACLOFEN 10 MG TAB PO SCH ×3 (07:54→16:46)
[2016-07-13] MEDS: PREGABALIN 75 MG CAP PO SCH ×2 (07:54→20:11)
[2016-07-13] MEDS: CHLORHEXIDINE 0.12% (ORAL KIT) 15 ML CUP MT SCH ×2 (07:54→20:11)
[2016-07-13] MEDS: HEPARIN SODIUM - SQ 10,000 UNITS/ML VIAL SQ SCH ×2 (07:54→20:11)
[2016-07-13] MEDS: LACTULOSE SYRUP 20 GM/30 ML CUP PO SCH ×2 (07:54→20:11)
[2016-07-13] MEDS: levETIRAcetam 500 MG/5 ML UDC NG SCH ×2 (07:54→20:11)
[2016-07-13] MEDS: SODIUM CHLORIDE 0.9% FLUSH 10 ML FLUSH IV FLUSH SCH ×2 (07:55→20:11)
--- NOTE | 2016-07-13 09:42 | HHI.CCPN ---
Subjective Remarks/Hospital Course 56-year-old female brought in by EMS emergently as altered mental status, hypoxia and temperature 104. Patient has a history of CVA many years ago. Per caregiver she didn't feel well since yesterday and wasn't taking any of medications including baclofen. Patient was unable to communicate due to her altered mental status. As per EMS not much history was available from the family but she has history of CVA as baseline but communicates. In the emergency department patient's oxygen saturation was low 70s upon EMS arrival. They had her on oxygen via nonrebreather and sats of 93%. GCS was 6 and she was intubated by ER attending for an airway protection. 06/13 Patient is sedated with Versed and on Bicarb drip. Renal function is improving with Cr: 2.12 from 3.19 UO: 1350ml since yesterday. Afebrile. 06/14 Patient remains sedated and intubated. Afebrile. Renal function continue to improve with Cr: 1.18 today from 1.53. 06/15 No acute events overnight. Off sedation remains intubated. Patient tolerated CPAP all day yesterday. MRA brain last night is unremarkable. T:99.9 06/16 Patient remains intubated off sedation. Afebrile. Tolerated CPAP all day yesterday remains encephalopathic. 06/17 No acute events overnight. Patient is able to open her eyes but does not follow commands. T: 100.1 last night. 06/18: Remains encephalopathic, orally intubated on mechanical ventilation. 06/19: Remains encephalopathic, orally intubated on mechanical ventilation. Daily C Pap trials ongoing. 06/20: Remains encephalopathic, orally intubated on mechanical ventilation. Daily C Pap trials. Tube feeds resumed. 06/21: More awake however not following commands. Remains orally intubated on mechanical ventilation. Tolerating tube feeds. Daily C Pap trials ongoing. 06/22: Encephalopathic though more awake, arousable. Not following commands. Remains orally intubated on mechanical ventilation. Tolerating tube feeds. Daily C Pap trials. 06/23: Awake, not following commands. Remains orally intubated on mechanical ventilation. Failing C Pap trials. Tolerating tube feeds. 06/24: Opening eyes, blinks on command. Remains orally intubated on mechanical ventilation. Tolerating tube feeds. Gets tachypneic with low volumes on dropping pressure-support at C Pap trials. We'll initiate diuresis as patient isn't significantly positive fluid balance since admission due to fluids administered for sepsis which now appears to be under control. 06/25: Awake, appears to focus. Extubated today following C Pap trial. Continue diuresis. 06/26: CCM reconsult note. Patient was extubated yesterday 06/25 and apparently was doing well initially. Overnight was placed on a 100% percent nonrebreather. I was called to the bedside emergently by Denny PATINO, today around 12.30 pm, patient was more unresponsive and hypoxemic on 100% nonrebreather. On my evaluation patient's eyes were open but nonresponsive, shallow breathing. Oxygen saturation 80% on 100 percent nonrebreather. Emergently intubated and placed on mechanical ventilation. Moderate amount of white secretions at glottic opening. CXR shows RLL infiltrate with volume loss? aspiration. Sputum cx. Discuss with ID Dr. Ortiz, will place on broad-spectrum antibiotics with Zosyn 06/27: Tmax 99.6 The patient was emergently reintubated yesterday, overnight no increasing ventilatory requirements were noted. The patient underwent a bronchoscopy with BAL this a.m., cultures were sent. Plan for PEG placement today. 06/28: Tmax 98.4 The patient underwent PEG placement yesterday, will resume tube feedings today. Mucomyst was initiated yesterday status post bronchial noted mucous plugs, with thick tenacious secretions. Will tentatively plan for tracheostomy next week, if unable to wean, and increasing ventilatory requirements. 06/29: She was noted to have a drop in hemoglobin last night, and received 2 units of packed red blood cells. Hemoccult has been ordered stat CBC to be followed up. No obvious signs of bleeding noted. 06/30: Hgb stable. No change in neuro status. will attempt CPAP trials. Palliative medicine, Dr. Venegas to schedule goals of care now with reintubation. 07/01: Remains encephalopathic. Hemoglobin stable at 10.0. No acute changes overnight. Discussion with palliative care team and , he would like aggressive measures/treatments to continue to include tracheostomy. General surgery has been consulted. 07/02: Afebrile. No acute changes overnight. Patient was evaluated by general surgery plans for tracheostomy in the next few days with coordination. 07/03: Afebrile. The patient was underwent percutaneous tracheostomy at bedside. Chest x-ray is pending. 07/04 No acute events overnight. s/p trach yesterday. Tolerating tube feeds. 07/05: Afebrile. The patient tolerated CPAP trials for 8 hours yesterday. She is on CPAP trials today. 07/06: The patient tolerated CPAP trials for 10 hours yesterday. Normotensive. The patient continues have heart rate low 100's. PRN beta samina utilized during the night. 07/07: The patient was placed back on the ventilator during the night last night for a"rest". The patient continues to perform a CPAP trial. The patient was noted to be slightly hypertensive, metoprolol increased to every 8 hours. LTAC placement planned. 07/08: Currently resting in bed in no acute distress. Afebrile. Tolerating tube feeds. Positive BM. 07/09: Resting in bed on PSV trial in no acute distress. Tmax 99.4. Tolerating tube feeds. Positive BM. Neurologically unchanged. 07/10: Continues on PSV trial distress. Tmax 100.1. Currently 99.5. Tolerating tube feeds. Positive BM. Eyes and mouth are open. 07/11: Currently afebrile. Tolerating tube feeds. Lasted 2 hours on T piece trial today. Currently on PSV trial 07/12: Attempting for hours and T piece today. Tmax 101.1. Currently 99.8. Moves head aware in room. Eyes and mouth are both open. Subjective 07/13: Tmax 100.1. T piece 4 hours yesterday +2 hours. Will attempt 8 hours today. Minimum secretions from tracheostomy site. Panculture today and pro- calcitonin ordered per infectious disease note Objective Vital Signs Date Time Temp Pulse Resp B/P Pulse Ox O2 Delivery O2 Flow Rate FiO2 07/13/16 08:44 100 T-piece 6.00 35 07/13/16 08:00 100.1 104 22 108/71 Intake and Output 07/12/16 07/12/16 07/13/16 08:00 16:00 00:00 Intake Total 677 ml 768 ml 417 ml Output Total 225 ml 500 ml 300 ml Balance 452 ml 268 ml 117 ml Result Diagram: 07/13/16 0522 07/13/16 0522 Imaging Last Impressions Chest X-Ray 07/12/16 Signed Impressions: Service Date/Time: Tuesday, July 12, 2016 13:43 - CONCLUSION: No acute cardiopulmonary disease identified. Chalo Courtney MD Abdomen X-Ray 06/26/16 Signed Impressions: Service Date/Time: June 13:08 - CONCLUSION: 1. Nasogastric tube in good position. Benign-appearing bowel gas pattern. Jd Underwood MD Abdomen/Pelvis CT 06/17/16 Signed Impressions: Service Date/Time: Friday, June 17, 2016 04:12 - CONCLUSION: 1. New bibasilar atelectasis. 2. There is some mild dilatation of the small bowel. There is a mild to moderate distention of the colon down to the rectum suggestive of a diffuse adynamic ileus. No definite mechanical obstruction is seen. 3. Otherwise, no other significant changes compared to the prior study. Andi Luna MD Brain MRI 06/15/16 Signed Impressions: Service Date/Time: Wednesday, June 15, 2016 09:10 - CONCLUSION: No acute abnormality seen. 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 Reginaldo Cain MD Head Magnetic Resonance Angiography 06/14/16 Signed Impressions: Service Date/Time: Tuesday, June 14, 2016 18:23 - CONCLUSION: No evidence of vessel truncation or aneurysm. Simone Graham MD Liver Ultrasound 06/13/16 Signed Impressions: Service Date/Time: Monday, June 13, 2016 09:42 - CONCLUSION: 1. Small amount free fluid identified medial to the lower pole of the right kidney. 2. Slight increased hepatic echotexture suggesting some degree of fatty infiltration. 3. Please note the body and tail of the pancreas are obscured by overlying bowel gas. The head neck and uncinate process are sonographically intact. Mauro Leslie MD Head CT 06/12/16 9930 Signed Impressions: Service Date/Time: May 21:37 - CONCLUSION: Unremarkable study. Jose Martinez MD Renal Ultrasound 06/12/16 Signed Impressions: Service Date/Time: May 23:51 - CONCLUSION: 1. Mild pelvocaliectasis on the right. No hydronephrosis involving either kidney. Simone Woody Jr., MD Chest CT 06/12/16 0000 Signed Impressions: Service Date/Time: May 21:39 - CONCLUSION: Right upper lobe parenchymal process may represent pneumonia, however follow up is suggested with repeat noncontrast chest CT in 2-4 weeksafter appropriate clinical therapy. Jose Martinez MD Objective Remarks GENERAL: 56-year-old female, eyes and mouth are open on ventilator via trach. SKIN: Warm and dry. No rash HEAD: Normocephalic. EYES: Pallor present, No scleral icterus. No injection or drainage. NECK: Supple, trachea midline. Orotracheally intubated CARDIOVASCULAR: Tachycardic, RR. S1, S2 no S4. Without murmurs, gallops, or rubs. RESPIRATORY: Transmitted upper airway sounds. Diminished breath sounds in bases.. No wheezing noted GASTROINTESTINAL: Abdomen soft, non-tender, nondistended. Noted PEG in situ MUSCULOSKELETAL: No deformities. Dorsalis pedis posterior be else's are bilaterally palpable no decubitus ulcer EXTREMITIES: No significant peripheral edema NEURO: Eyes are open, mouth is open. Positive gag with trach suctioning. Withdraws to pain. A/P Assessment and Plan Neuro: Encephalopathy Left basal ganglia/IC CVA On no sedation. Monitor neuro status and avoid any sedatives. CT brain: No acute findings. UDS+ +Benzos MRA brain 06/14- Unremarkable. MRI brain 06/14 revealed lacunar infarct left basal ganglia left posterior and internal capsule s/p LP showed clear CSF and 15 WBC. EEG: Bihemispheric slowing, small sharp waves b/l Neuro is following- Dr. Boggs, On Keppra 500mg by PEG Q12 Continue Lyrica 25 mg twice a day encircling 100 mg by mouth daily/home medications Continue baclofen 10 mg 3 times a day for muscle spasms Continue as needed fentanyl 50 mcg for pain management Pulm: Vent dependent respiratory failure Acute hypoxemic respiratory failure Probable aspiration/HCAP with R volume loss Continue with vent support keep sat >92% Bronchodilators every 6 hours and as needed, ICU vent bundle. s/p perc trach placed 07/03, 8.[address] Raad ignacio, [facility], SBT daily as cherie. Continue CPAP trials. Attempt TP 4 hours today CV: Hypertension Monitor HR and BP keep MAP>65mmHg. Increase Lopressor 50 mg Q12 for HR/BP control Restart Norvasc 5 mill grams by mouth daily/home medication : Monitor renal function, I/O's, avoid nephrotoxins. Electrolytes replacement per protocol. Renal US: No hydronephrosis. Renal is following- Dr. Corral GI/liver: Gastroesophageal reflux disease On Pepcid 20 milligrams by PEG qhs, tube feeds with Glucerna 1.5@60ml/hr Monitor LFT's ( trending down), US liver: Fatty liver. Elevated urinary copper - GI is following. CT abdomen/pelvis 06/17- findings suggestive of adynamic ileus. No mechanical obstruction. On Reglan 5mg Iv q8 PRN, Miralax, Lactulose 06/[address] Davis ID: Staph aureus pneumonia - Off abx monitor for signs of infections ( Fever, WBC) Pertinent cultures: 06/12 Urine cx: E.coli 06/12 BC: No growth 06/12 CSG: NGTD 06/15 urine: E coli, sputum: MSSA 06/26: Blood sputum negative and urine cultures Pseudomonas 06/27 -bronchoscopy no growth Check pro-calcitonin, blood cultures 2, sputum and urine today Antifungal cream added to medication regimen per general surgery, anterior and lateral neck areas Heme: Normocytic anemia Leukocytosis Monitor CBC, and coags. Hep plt ab negative. 06/28-Transfused 2 units of PRBCs Endo: SSI for glycemic control, TSH level: 2.5 GI Prophylaxis with Pepcid DVT prophylaxis with SCD's, place on Heparin SQ Palliative care Dr. Venegas, following to assist with deciding goals of therapy. Patient's wishes to continue full CODE STATUS at this time, and continued aggressive treatment/therapies. Case management pending LTAC placement Dispo: Level 2 Dung Jeffries MD July 13, 2016 09:42
[2016-07-13 11:46] LABS: BETA HCG QUANT LESS THAN 1 MIU/ML (0-5)
[2016-07-13 17:28] LABS: BACTERIA, URINE OCC /hpf; BLOOD, URINE NEG (NEG); GLUCOSE,URINE NEG (NEG); KETONE, URINE NEG (NEG); MUCUS URINE FEW /lpf (OCC); PH, URINE 6.5 (5.0-8.5); SQUAMOUS EPITHELIAL CELL URINE 1 /hpf (0-5); URINE COLOR YELLOW (YELLW/STRAW)
[2016-07-13 17:36] LABS: NITRITE,URINE POS (NEG)
[2016-07-13 17:37] LABS: COMMENT (UR) CATH-CULTURE IND; CULTURE IF INDICATED CATH CULTURE IND
[2016-07-14] VITALS (19 sets, daily range): BP systolic 112–148; BP diastolic 67–82; PULSE 68–133; RESP 22–26; TEMP 98.3–98.7; O2SAT 99–100
[2016-07-14] MEDS: METOPROLOL TARTRATE 50 MG TAB PO SCH ×4 (01:23→18:00)
[2016-07-14] MEDS: RESP: ALBUTEROL 2.5 MG/IPRATROPIUM 0.5 MG NEB (SCH) NEB ×4 (04:00→21:15)
[2016-07-14] MEDS: CHLORHEXIDINE GLUCONATE 2 % 1 PACK (2 CLOTHS) TOP SCH (04:00)
[2016-07-14] MEDS: NYSTATIN 100,000 U/GM PWD 15 GM BTL TOPICAL SCH ×3 (05:29→21:37)
--- NOTE | 2016-07-14 06:00 | RADRPT ---
EXAM DATE/TIME: 07/14/2016 04:23 [facility] COMPARISON: CHEST SINGLE AP, July 12, 2016, 13:43. INDICATIONS : Shortness of breath, possible pulmonary disease. MEDICAL HISTORY : Stroke. SURGICAL HISTORY : None. ENCOUNTER: Subsequent ACUITY: 1 month PAIN SCORE: Non-responsive. LOCATION: Bilateral chest FINDINGS: Tracheostomy tube is present in satisfactory position. The lungs are clear without infiltrate, nodule , or mass. There is no appreciable pleural effusion for technique. Heart and mediastinum are unrema rkable. CONCLUSION: No acute cardiopulmonary disease. Jose Martinez MD on July 14, 2016 at 5:58 Board Certified Radiologist. This report was verified electronically.
[2016-07-14 06:18] LABS: AUTOMATED NEUTROPHIL # 8.4 TH/MM3 (1.8-7.7); BASOPHIL % 0.2 % (0.0-2.0); EOSINOPHIL # 0.1 TH/MM3 (0-0.4); EOSINOPHIL % 0.5 % (0.0-4.0); HEMATOCRIT 32.8 % (35.0-46.0); HEMO FLAGS DIFF FINAL; LYMPHOCYTE # 1.8 TH/MM3 (1.0-4.8); MEAN CELL VOLUME 81.7 FL (80.0-100.0); MEAN CORPUSCULAR HEMOGLOBIN 26.7 PG (27.0-34.0); MEAN CORPUSCULAR HGB CONC 32.7 % (32.0-36.0); MONO % 7.4 % (0.0-8.0); NEUT % 75.9 % (16.0-70.0); PLATELET COUNT 259 TH/MM3 (150-450); RED BLOOD COUNT 4.01 MIL/MM3 (4.00-5.30); RED CELL DISTRIBUTION WIDTH 16.7 % (11.6-17.2); WHITE BLOOD COUNT 11.1 TH/MM3 (4.0-11.0)
[2016-07-14 06:44] LABS: ANION GAP 8 MEQ/L (5-15); AST (GOT) 18 U/L (15-37); BICARBONATE 27.8 MEQ/L (21.0-32.0); BLOOD UREA NITROGEN 18 MG/DL (7-18); CHLORIDE 106 MEQ/L (98-107); GLOMERULAR FILTRATION RATE 180 ML/MIN (>89); MAGNESIUM 2.5 MG/DL (1.5-2.5); POTASSIUM 3.9 MEQ/L (3.5-5.1); SODIUM (NA) 142 MEQ/L (136-145)
[2016-07-14 06:51] LABS: ALKALINE PHOSPHATASE 128 U/L (45-117); ALT (GPT) 26 U/L (10-53); TOTAL BILIRUBIN ADULT 0.2 MG/DL (0.2-1.0)
--- NOTE | 2016-07-14 07:57 | HHI.CCPN ---
Subjective Remarks/Hospital Course 56-year-old female brought in by EMS emergently as altered mental status, hypoxia and temperature 104. Patient has a history of CVA many years ago. Per caregiver she didn't feel well since yesterday and wasn't taking any of medications including baclofen. Patient was unable to communicate due to her altered mental status. As per EMS not much history was available from the family but she has history of CVA as baseline but communicates. In the emergency department patient's oxygen saturation was low 70s upon EMS arrival. They had her on oxygen via nonrebreather and sats of 93%. GCS was 6 and she was intubated by ER attending for an airway protection. 06/13 Patient is sedated with Versed and on Bicarb drip. Renal function is improving with Cr: 2.12 from 3.19 UO: 1350ml since yesterday. Afebrile. 06/14 Patient remains sedated and intubated. Afebrile. Renal function continue to improve with Cr: 1.18 today from 1.53. 06/15 No acute events overnight. Off sedation remains intubated. Patient tolerated CPAP all day yesterday. MRA brain last night is unremarkable. T:99.9 06/16 Patient remains intubated off sedation. Afebrile. Tolerated CPAP all day yesterday remains encephalopathic. 06/17 No acute events overnight. Patient is able to open her eyes but does not follow commands. T: 100.1 last night. 06/18: Remains encephalopathic, orally intubated on mechanical ventilation. 06/19: Remains encephalopathic, orally intubated on mechanical ventilation. Daily C Pap trials ongoing. 06/20: Remains encephalopathic, orally intubated on mechanical ventilation. Daily C Pap trials. Tube feeds resumed. 06/21: More awake however not following commands. Remains orally intubated on mechanical ventilation. Tolerating tube feeds. Daily C Pap trials ongoing. 06/22: Encephalopathic though more awake, arousable. Not following commands. Remains orally intubated on mechanical ventilation. Tolerating tube feeds. Daily C Pap trials. 06/23: Awake, not following commands. Remains orally intubated on mechanical ventilation. Failing C Pap trials. Tolerating tube feeds. 06/24: Opening eyes, blinks on command. Remains orally intubated on mechanical ventilation. Tolerating tube feeds. Gets tachypneic with low volumes on dropping pressure-support at C Pap trials. We'll initiate diuresis as patient isn't significantly positive fluid balance since admission due to fluids administered for sepsis which now appears to be under control. 06/25: Awake, appears to focus. Extubated today following C Pap trial. Continue diuresis. 06/26: CCM reconsult note. Patient was extubated yesterday 06/25 and apparently was doing well initially. Overnight was placed on a 100% percent nonrebreather. I was called to the bedside emergently by Denny PATINO, today around 12.30 pm, patient was more unresponsive and hypoxemic on 100% nonrebreather. On my evaluation patient's eyes were open but nonresponsive, shallow breathing. Oxygen saturation 80% on 100 percent nonrebreather. Emergently intubated and placed on mechanical ventilation. Moderate amount of white secretions at glottic opening. CXR shows RLL infiltrate with volume loss? aspiration. Sputum cx. Discuss with ID Dr. Ortiz, will place on broad-spectrum antibiotics with Zosyn 06/27: Tmax 99.6 The patient was emergently reintubated yesterday, overnight no increasing ventilatory requirements were noted. The patient underwent a bronchoscopy with BAL this a.m., cultures were sent. Plan for PEG placement today. 06/28: Tmax 98.4 The patient underwent PEG placement yesterday, will resume tube feedings today. Mucomyst was initiated yesterday status post bronchial noted mucous plugs, with thick tenacious secretions. Will tentatively plan for tracheostomy next week, if unable to wean, and increasing ventilatory requirements. 06/29: She was noted to have a drop in hemoglobin last night, and received 2 units of packed red blood cells. Hemoccult has been ordered stat CBC to be followed up. No obvious signs of bleeding noted. 06/30: Hgb stable. No change in neuro status. will attempt CPAP trials. Palliative medicine, Dr. Venegas to schedule goals of care now with reintubation. 07/01: Remains encephalopathic. Hemoglobin stable at 10.0. No acute changes overnight. Discussion with palliative care team and , he would like aggressive measures/treatments to continue to include tracheostomy. General surgery has been consulted. 07/02: Afebrile. No acute changes overnight. Patient was evaluated by general surgery plans for tracheostomy in the next few days with coordination. 07/03: Afebrile. The patient was underwent percutaneous tracheostomy at bedside. Chest x-ray is pending. 07/04 No acute events overnight. s/p trach yesterday. Tolerating tube feeds. 07/05: Afebrile. The patient tolerated CPAP trials for 8 hours yesterday. She is on CPAP trials today. 07/06: The patient tolerated CPAP trials for 10 hours yesterday. Normotensive. The patient continues have heart rate low 100's. PRN beta samina utilized during the night. 07/07: The patient was placed back on the ventilator during the night last night for a"rest". The patient continues to perform a CPAP trial. The patient was noted to be slightly hypertensive, metoprolol increased to every 8 hours. LTAC placement planned. 07/08: Currently resting in bed in no acute distress. Afebrile. Tolerating tube feeds. Positive BM. 07/09: Resting in bed on PSV trial in no acute distress. Tmax 99.4. Tolerating tube feeds. Positive BM. Neurologically unchanged. 07/10: Continues on PSV trial distress. Tmax 100.1. Currently 99.5. Tolerating tube feeds. Positive BM. Eyes and mouth are open. 07/11: Currently afebrile. Tolerating tube feeds. Lasted 2 hours on T piece trial today. Currently on PSV trial 07/12: Attempting for hours and T piece today. Tmax 101.1. Currently 99.8. Moves head aware in room. Eyes and mouth are both open. Subjective 07/13: Tmax 100.1. T piece 4 hours yesterday +2 hours. Will attempt 8 hours today. Minimum secretions from tracheostomy site. Panculture today and pro- calcitonin ordered per infectious disease note 07/14 No events overnight. Afebrile. On CPAP with PS 10, PEEP:5 and FIO2 30%. Tolerating tube feeds. Objective Vital Signs Date Time Temp Pulse Resp B/P Pulse Ox O2 Delivery O2 Flow Rate FiO2 07/14/16 06:00 109 07/14/16 04:03 100 30 07/14/16 04:00 98.6 22 112/74 07/13/16 16:13 T-piece 8.00 Intake and Output 07/13/16 07/13/1607/14/17 08:00 16:00 00:00 Intake Total 316 ml 762 ml 487 ml Output Total 250 ml 350 ml 250 ml Balance 66 ml 412 ml 237 ml Result Diagram: 07/14/16 0543 07/14/16 0543 Other Results Laboratory Tests Test 07/13/16 07/13/16 07/14/16 10:40 17:11 05:43 Procalcitonin 0.23 ng/mL Human Chorionic Gonadotropin, LESS THAN 1 Quant MIU/ML Urine Color YELLOW Urine Turbidity CLEAR Urine pH 6.5 Urine Specific Ponce 1.029 Urine Protein 100 mg/dL Urine Glucose (UA) NEG mg/dL Urine Ketones NEG mg/dL Urine Occult Blood NEG Urine Nitrite POS Urine Bilirubin NEG Urine Urobilinogen LESS THAN 2.0 MG/DL Urine Leukocyte Esterase MOD Urine RBC 8 /hpf Urine WBC 42 /hpf Urine Squamous Epithelial 1 /hpf Cells Urine Bacteria OCC /hpf Urine Mucus FEW /lpf Microscopic Urinalysis Comment CATH-CULTURE IND White Blood Count 11.1 TH/MM3 Red Blood Count 4.01 MIL/MM3 Hemoglobin 10.7 GM/DL Hematocrit 32.8 % Mean Corpuscular Volume 81.7 FL Mean Corpuscular Hemoglobin 26.7 PG Mean Corpuscular Hemoglobin 32.7 % Concent Red Cell Distribution Width 16.7 % Platelet Count 259 TH/MM3 Mean Platelet Volume 10.1 FL Neutrophils (%) (Auto) 75.9 % Lymphocytes (%) (Auto) 16.0 % Monocytes (%) (Auto) 7.4 % Eosinophils (%) (Auto) 0.5 % Basophils (%) (Auto) 0.2 % Neutrophils # (Auto) 8.4 TH/MM3 Lymphocytes # (Auto) 1.8 TH/MM3 Monocytes # (Auto) 0.8 TH/MM3 Eosinophils # (Auto) 0.1 TH/MM3 Basophils # (Auto) 0.0 TH/MM3 CBC Comment DIFF FINAL Differential Comment Sodium Level 142 MEQ/L Potassium Level 3.9 MEQ/L Chloride Level 106 MEQ/L Carbon Dioxide Level 27.8 MEQ/L Anion Gap 8 MEQ/L Blood Urea Nitrogen 18 MG/DL Creatinine 0.44 MG/DL Estimat Glomerular Filtration 180 ML/MIN Rate Random Glucose 108 MG/DL Calcium Level 9.2 MG/DL Phosphorus Level 3.6 MG/DL Magnesium Level 2.5 MG/DL Total Bilirubin 0.2 MG/DL Aspartate Amino Transf 18 U/L (AST/SGOT) Alanine Aminotransferase 26 U/L (ALT/SGPT) Alkaline Phosphatase 128 U/L Total Protein 8.4 GM/DL Albumin 2.5 GM/DL Imaging Last Impressions Chest X-Ray 07/14/16 0600 Signed Impressions: Service Date/Time: Thursday, July 14, 2016 04:23 - CONCLUSION: No acute cardiopulmonary disease. Jose Martinez MD Abdomen X-Ray 06/26/16 0000 Signed Impressions: Service Date/Time: June 13:08 - CONCLUSION: 1. Nasogastric tube in good position. Benign-appearing bowel gas pattern. Jd Underwood MD Abdomen/Pelvis CT 06/17/16 0000 Signed Impressions: Service Date/Time: Friday, June 17, 2016 04:12 - CONCLUSION: 1. New bibasilar atelectasis. 2. There is some mild dilatation of the small bowel. There is a mild to moderate distention of the colon down to the rectum suggestive of a diffuse adynamic ileus. No definite mechanical obstruction is seen. 3. Otherwise, no other significant changes compared to the prior study. Andi Luna MD Brain MRI 06/15/16 0000 Signed Impressions: Service Date/Time: Wednesday, June 15, 2016 09:10 - CONCLUSION: No acute abnormality seen. 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 Reginaldo Cain MD Head Magnetic Resonance Angiography 06/14/16 0000 Signed Impressions: Service Date/Time: Tuesday, June 14, 2016 18:23 - CONCLUSION: No evidence of vessel truncation or aneurysm. Simone Graham MD Liver Ultrasound 06/13/16 0000 Signed Impressions: Service Date/Time: Monday, June 13, 2016 09:42 - CONCLUSION: 1. Small amount free fluid identified medial to the lower pole of the right kidney. 2. Slight increased hepatic echotexture suggesting some degree of fatty infiltration. 3. Please note the body and tail of the pancreas are obscured by overlying bowel gas. The head neck and uncinate process are sonographically intact. Mauro Leslie MD Head CT 06/12/16 [id number] Signed Impressions: Service Date/Time: May 21:37 - CONCLUSION: Unremarkable study. Jose Martinez MD Renal Ultrasound 06/12/16 0000 Signed Impressions: Service Date/Time: May 23:51 - CONCLUSION: 1. Mild pelvocaliectasis on the right. No hydronephrosis involving either kidney. Simone Woody Jr., MD Chest CT 06/12/16 0000 Signed Impressions: Service Date/Time: May 21:39 - CONCLUSION: Right upper lobe parenchymal process may represent pneumonia, however follow up is suggested with repeat noncontrast chest CT in 2-4 weeksafter appropriate clinical therapy. Jose Martinez MD Objective Remarks GENERAL: 56-year-old female, eyes and mouth are open on ventilator via trach. SKIN: Warm and dry. No rash HEAD: Normocephalic. EYES: Pallor present, No scleral icterus. No injection or drainage. NECK: Supple, trachea midline. Orotracheally intubated CARDIOVASCULAR: Tachycardic, RR. S1, S2 no S4. Without murmurs, gallops, or rubs. RESPIRATORY: Transmitted upper airway sounds. Diminished breath sounds in bases.. No wheezing noted GASTROINTESTINAL: Abdomen soft, non-tender, nondistended. Noted PEG in situ MUSCULOSKELETAL: No deformities. Dorsalis pedis posterior be else's are bilaterally palpable no decubitus ulcer EXTREMITIES: No significant peripheral edema NEURO: Eyes are open, mouth is open. Positive gag with trach suctioning. Withdraws to pain. A/P Assessment and Plan Neuro: Encephalopathy Left basal ganglia/IC CVA On no sedation. Monitor neuro status and avoid any sedatives. CT brain: No acute findings. UDS+ +Benzos MRA brain 06/14- Unremarkable. MRI brain 06/14 revealed lacunar infarct left basal ganglia left posterior and internal capsule s/p LP showed clear CSF and 15 WBC. EEG: Bihemispheric slowing, small sharp waves b/l Neuro is following- Dr. Boggs, On Keppra 500mg by PEG Q12 Continue Lyrica 25 mg twice a day encircling 100 mg by mouth daily/home medications Continue baclofen 10 mg 3 times a day for muscle spasms Continue as needed fentanyl 50 mcg for pain management Pulm: Vent dependent respiratory failure Acute hypoxemic respiratory failure Probable aspiration/HCAP with R volume loss Continue with vent support keep sat >92% Bronchodilators every 6 hours and as needed, ICU vent bundle. s/p perc trach placed 07/03, 8.[address] Raad ignacio, trach care, SBT daily as cherie. Continue CPAP/TP's trials as cherie CXR today- No acute disease. CV: Hypertension Monitor HR and BP keep MAP>65mmHg. On Lopressor 50 mg Q6 for HR/BP control Norvasc 5mg PO daily/home medication : Monitor renal function, I/O's, avoid nephrotoxins. Electrolytes replacement per protocol. Renal US: No hydronephrosis. Renal is following- Dr. Corral GI/liver: Gastroesophageal reflux disease On Pepcid 20 milligrams by PEG qhs, tube feeds with Glucerna 1.5@60ml/hr Monitor LFT's ( trending down), US liver: Fatty liver. Elevated urinary copper - GI is following. CT abdomen/pelvis 06/17- findings suggestive of adynamic ileus. No mechanical obstruction. On Reglan 5mg Iv q8 PRN, Miralax, Lactulose 06/[address] Davis ID: Staph aureus pneumonia - Off abx monitor for signs of infections ( Fever, WBC) WBC trending down Pertinent cultures: 06/12 Urine cx: E.coli 06/12 BC: No growth 06/12 CSG: NGTD 06/15 urine: E coli, sputum: MSSA 06/26: Blood sputum negative and urine cultures Pseudomonas 06/27 -bronchoscopy no growth pro-calcitonin level 0.23 on 07/13, Follow up on blood cultures, sputum and urine cxs from 07/13 Antifungal cream added to medication regimen per general surgery, anterior and lateral neck areas Heme: Normocytic anemia Leukocytosis Monitor CBC, and coags. Hep plt ab negative. 06/28-Transfused 2 units of PRBCs Endo: SSI for glycemic control, TSH level: 2.5 GI Prophylaxis with Pepcid DVT prophylaxis with SCD's, Heparin SQ Palliative care Dr. Venegas, following to assist with deciding goals of therapy. Patient's wishes to continue full CODE STATUS at this time, and continued aggressive treatment/therapies. Case management pending LTAC placement Dispo: Level 2 Jose Smith MD July 14, 2016 07:57
[2016-07-14] MEDS: CHLORHEXIDINE 0.12% (ORAL KIT) 15 ML CUP MT SCH ×2 (08:00→21:36)
[2016-07-14] MEDS: HEPARIN SODIUM - SQ 10,000 UNITS/ML VIAL SQ SCH ×2 (09:00→21:34)
[2016-07-14] MEDS: SODIUM CHLORIDE 0.9% FLUSH 10 ML FLUSH IV FLUSH SCH ×2 (09:00→21:00)
[2016-07-14] MEDS: amLODIPine BESYLATE 5 MG TAB PO SCH (10:32)
[2016-07-14] MEDS: levETIRAcetam 500 MG/5 ML UDC NG SCH ×2 (10:32→21:35)
[2016-07-14] MEDS: BACLOFEN 10 MG TAB PO SCH ×3 (10:32→18:00)
[2016-07-14] MEDS: FAMOTIDINE 20 MG TAB NG SCH (10:32)
[2016-07-14] MEDS: PREGABALIN 75 MG CAP PO SCH ×2 (10:32→21:37)
[2016-07-14] MEDS: LACTULOSE SYRUP 20 GM/30 ML CUP PO SCH ×2 (10:33→21:35)
[2016-07-14] MEDS: POLYETHYLENE GLYCOL 17 GM PKG PO SCH (10:33)
--- NOTE | 2016-07-14 12:27 | RADRPT ---
EXAM DATE/TIME: 07/14/2016 10:47 [facility] COMPARISON: No previous studies available for comparison. INDICATIONS : Bilateral leg edema. MEDICAL HISTORY : CVA. Dyspnea. Respiratory failure. GERD. Hypertension. SURGICAL HISTORY : section.Hysterectomy. ENCOUNTER: Initial ACUITY: 1 day PAIN SCORE: Non-responsive LOCATION: Bilateral leg. TECHNIQUE: Venous ultrasound of the left and right leg was performed from the inguinal ligament to the proximal calf. Real-time, color Doppler and spectral tracing, compression and augmentation techniques were us ed. FINDINGS: RIGHT LEG: There is normal compressibility of the deep venous system from the inguinal region to the proximal ca lf. No echogenic clot is seen in the lumen of the common femoral, femoral, popliteal, and posterior tibial veins. There is a normal response of the venous system to proximal and distal augmentation an d respiration. LEFT LEG: There is normal compressibility of the deep venous system from the inguinal region to the proximal ca lf. No echogenic clot is seen in the lumen of the common femoral, femoral, popliteal, and posterior tibial veins. There is a normal response of the venous system to proximal and distal augmentation an d respiration. CONCLUSION: Negative exam with no evidence of deep venous thrombosis. Rico Pedraza MD on July 14, 2016 at 12:25 Board Certified Radiologist. This report was verified electronically.
--- NOTE | 2016-07-14 13:23 | HHI.IDPN ---
Subjective Subjective Remarks pt is having intermittent feer up to 100.1 in the last 24 hrs Afebrille today Not much secretion Unchanged neurologically regular BMs On CPAP 30% FiO2 Antibiotics none Past Medical History Reviewed Allergies: Coded Allergies: DO NOT USE (Verified Allergy, Mild, Hallucinations, 06/12/16) Objective . Vital Signs Date Time Temp Pulse Resp B/P Pulse Ox O2 Delivery O2 Flow Rate FiO2 07/14/16 12:07 100 30 07/14/16 12:00 68 07/14/16 12:00 98.3 110 22 139/80 99 07/14/16 12:00 30 07/14/16 10:00 68 07/14/16 08:43 100 30 07/14/16 08:00 30 07/14/16 08:00 68 07/14/16 08:00 98.3 68 22 148/67 99 07/14/16 06:00 109 07/14/16 04:03 100 30 07/14/16 04:00 30 07/14/16 04:00 107 07/14/16 04:00 98.6 107 22 112/74 100 07/14/16 02:00 101 07/14/16 00:08 100 30 07/14/16 00:00 30 07/14/16 00:00 105 07/14/16 00:00 98.3 105 24 126/72 100 07/13/16 22:00 108 07/13/16 21:12 26 07/13/16 20:42 100 30 07/13/16 20:00 98.7 109 28 112/72 100 07/13/16 20:00 109 07/13/16 18:00 104 07/13/16 16:13 99 T-piece 8.00 35 07/13/16 16:00 99.0 109 24 122/77 100 07/13/16 16:00 106 07/13/16 14:00 60 07/13/16 13:25 100 30 07/13/16 07/13/16 07/14/16 14:59 22:59 06:59 Intake Total 762 ml 487 ml 504 ml Output Total 350 ml 250 ml 250 ml Balance 412 ml 237 ml 254 ml Tube Feeding 522 ml 427 ml 444 ml Other 240 ml 60 ml 60 ml Output Urine Total 350 ml 250 ml 250 ml # Bowel Movements 1 1 0 . Laboratory Tests Test 07/13/16 07/14/16 05:22 05:43 White Blood Count 14.9 TH/MM3 11.1 TH/MM3 Red Blood Count 4.12 MIL/MM3 4.01 MIL/MM3 Hemoglobin 11.0 GM/DL 10.7 GM/DL Hematocrit 33.5 % 32.8 % Mean Corpuscular Volume 81.2 FL 81.7 FL Mean Corpuscular Hemoglobin 26.6 PG 26.7 PG Mean Corpuscular Hemoglobin 32.8 % 32.7 % Concent Red Cell Distribution Width 16.4 % 16.7 % Platelet Count 278 TH/MM3 259 TH/MM3 Mean Platelet Volume 10.2 FL 10.1 FL Neutrophils (%) (Auto) 75.9 % Lymphocytes (%) (Auto) 16.0 % Monocytes (%) (Auto) 7.4 % Eosinophils (%) (Auto) 0.5 % Basophils (%) (Auto) 0.2 % Neutrophils # (Auto) 8.4 TH/MM3 Lymphocytes # (Auto) 1.8 TH/MM3 Monocytes # (Auto) 0.8 TH/MM3 Eosinophils # (Auto) 0.1 TH/MM3 Basophils # (Auto) 0.0 TH/MM3 CBC Comment DIFF FINAL Differential Comment Laboratory Tests Test 07/13/16 07/13/16 07/14/16 05:22 10:40 05:43 Sodium Level 140 MEQ/L 142 MEQ/L Potassium Level 4.2 MEQ/L 3.9 MEQ/L Chloride Level 103 MEQ/L 106 MEQ/L Carbon Dioxide Level 27.5 MEQ/L 27.8 MEQ/L Anion Gap 10 MEQ/L 8 MEQ/L Blood Urea Nitrogen 13 MG/DL 18 MG/DL Creatinine 0.45 MG/DL 0.44 MG/DL Estimat Glomerular Filtration 175 ML/MIN 180 ML/MIN Rate Random Glucose 111 MG/DL 108 MG/DL Calcium Level 9.4 MG/DL 9.2 MG/DL Procalcitonin 0.23 ng/mL Human Chorionic Gonadotropin, LESS THAN 1 Quant MIU/ML Phosphorus Level 3.6 MG/DL Magnesium Level 2.5 MG/DL Total Bilirubin 0.2 MG/DL Aspartate Amino Transf 18 U/L (AST/SGOT) Alanine Aminotransferase 26 U/L (ALT/SGPT) Alkaline Phosphatase 128 U/L Total Protein 8.4 GM/DL Albumin 2.5 GM/DL Microbiology Date/Time Procedure Status Source Growth 07/13/16 10:40 Aerobic Blood Culture - Preliminary Resulted Blood Peripheral NO GROWTH IN 1 DAY 07/13/16 10:40 Anaerobic Blood Culture - Preliminary Resulted Blood Peripheral NO GROWTH IN 1 DAY 07/13/16 10:45 Aerobic Blood Culture - Preliminary Resulted Blood Peripheral NO GROWTH IN 1 DAY 07/13/16 10:45 Anaerobic Blood Culture - Preliminary Resulted Blood Peripheral NO GROWTH IN 1 DAY 07/13/16 17:11 Urine Culture Received Urine Catheterized Urine Pending Imaging Last Impressions Lower Extremity Ultrasound 07/14/16 0800 Signed Impressions: Service Date/Time: Thursday, July 14, 2016 10:47 - CONCLUSION: Negative exam with no evidence of deep venous thrombosis. Rico Pedraza MD Chest X-Ray 07/14/16 0600 Signed Impressions: Service Date/Time: Thursday, July 14, 2016 04:23 - CONCLUSION: No acute cardiopulmonary disease. Jose Martinez MD Abdomen X-Ray 06/26/16 0000 Signed Impressions: Service Date/Time: June 13:08 - CONCLUSION: 1. Nasogastric tube in good position. Benign-appearing bowel gas pattern. Jd Underwood MD Abdomen/Pelvis CT 06/17/16 0000 Signed Impressions: Service Date/Time: Friday, June 17, 2016 04:12 - CONCLUSION: 1. New bibasilar atelectasis. 2. There is some mild dilatation of the small bowel. There is a mild to moderate distention of the colon down to the rectum suggestive of a diffuse adynamic ileus. No definite mechanical obstruction is seen. 3. Otherwise, no other significant changes compared to the prior study. Andi Luna MD Brain MRI 06/15/16 0000 Signed Impressions: Service Date/Time: Wednesday, June 15, 2016 09:10 - CONCLUSION: No acute abnormality seen. 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 Reginaldo Cain MD Head Magnetic Resonance Angiography 06/14/16 0000 Signed Impressions: Service Date/Time: Tuesday, June 14, 2016 18:23 - CONCLUSION: No evidence of vessel truncation or aneurysm. Simone Graham MD Liver Ultrasound 06/13/16 0000 Signed Impressions: Service Date/Time: Monday, June 13, 2016 09:42 - CONCLUSION: 1. Small amount free fluid identified medial to the lower pole of the right kidney. 2. Slight increased hepatic echotexture suggesting some degree of fatty infiltration. 3. Please note the body and tail of the pancreas are obscured by overlying bowel gas. The head neck and uncinate process are sonographically intact. Mauro Leslie MD Head CT 06/12/16 1657 Signed Impressions: Service Date/Time: May 21:37 - CONCLUSION: Unremarkable study. Jose Martinez MD Renal Ultrasound 06/12/16 0000 Signed Impressions: Service Date/Time: May 23:51 - CONCLUSION: 1. Mild pelvocaliectasis on the right. No hydronephrosis involving either kidney. Simone Woody Jr., MD Chest CT 06/12/16 0000 Signed Impressions: Service Date/Time: May 21:39 - CONCLUSION: Right upper lobe parenchymal process may represent pneumonia, however follow up is suggested with repeat noncontrast chest CT in 2-4 weeksafter appropriate clinical therapy. Jose Martinez MD Physical Exam GENERAL: on CPAP NAD SKIN: No jaundice, rashes, or lesions. Cool and dry HEYES: Pupils equal and round and reactive. No scleral icterus. No injection or drainage. ENT: Nose without bleeding or purulent drainage. NCARDIOVASCULAR: Regular rate and rhythm without murmurs, gallops, or rubs. No JVD. Peripheral pulses symmetric. RESPIRATORY/CHEST: Bilateral diffuse coarse rhonchi GASTROINTESTINAL: Abdomen soft, no reaction to palpation, not distended. No guarding. Bowel sounds present. Incontinent of liquid brown stool GENITOURINARY: Ayoub catheter in place with cloudy yellow urine MUSCULOSKELETAL: Extremities without clubbing, cyanosis, no significant edema. NEUROLOGICAL: lehtargic , not opening eyes to voice not following commands LINE no evidence of infection Assessment & Plan Remarks PNA, Staph aureus, clinically resolved - CXR from negative Lymphocytic pleocytosis in CSF - C/S negative - VRDF negative, RPR neg - all clx are negative ARF/CKD, resolved Respiratory failure, on Tpiece, tolerating weaning Leukocytosis, resolved ? reactive Persistent intermittent fever and leukocytosis ?UTI PLAN change ayoub repeat with new ayoub UA, C+S if indicated start cefepime, Briseida Clay RN, MD July 14, 2016 13:22
[2016-07-14] MEDS ORDERED: Vancomycin Consult Pharmacy 1 EA OTHER SCH (13:30)
[2016-07-14] MEDS: CEFEPIME INJ 2,000 MG in SODIUM CHLORIDE 0.9% INJ 100 ML IV SCH ×2 (14:04→21:35)
[2016-07-14] MEDS: VANCOMYCIN INJ 1,500 MG in SODIUM CHLORID 0.9% 500 ML INJ 500 ML IV SCH (16:41)
[2016-07-14 17:08] LABS: BACTERIA, URINE MOD /hpf; BLOOD, URINE MOD (NEG); GLUCOSE,URINE NEG (NEG); KETONE, URINE NEG (NEG); MUCUS URINE FEW /lpf (OCC); NITRITE,URINE NEG (NEG); PH, URINE 5.5 (5.0-8.5); SQUAMOUS EPITHELIAL CELL URINE 3 /hpf (0-5); URINE COLOR YELLOW (YELLW/STRAW)
[2016-07-14 17:11] LABS: COMMENT (UR) CATH-CULTURE IND; CULTURE IF INDICATED CATH CULTURE IND
--- NOTE | 2016-07-14 17:46 | HHI.HCPN ---
Reason for visit a. To assist with evaluation and management of symptoms including: Dyspnea , encephalopathy b. To assist medical decision maker(s) with: better understanding of current medical conditions; weighing benefits/burdens of medical treatment options; making medical treatment decisions. . Subjective/Interval History INTERVAL NOTE: Patient underwent tracheostomy on 07/03/16. She tolerated the procedure well. No other significant change. Tolerated trach-CPAP all day today. Not tracking me today. Nurse reports patient has seemed less responsive to her, as well. Nursing pain level scores are "0." No opiate analgesics since 07/12/16. Primary nurse reports the patient is tolerating tube feedings. Bowels are moving. Urine output is fair. Family has told the nursing staff if they find her more responsive. There therefore more hopeful. Case management continues to search for placement options reviewed Intermittent temperatures greater than 100F. There is intermittent tachycardia CBC from 07/14/16 shows WBC 11.1; hemoglobin 10.7; platelets 259. Chemistry panel is unremarkable. Albumin remains low at 2.5. Lower extremity Doppler from 07/14/16 shows no evidence of deep venous thrombosis. CXR over 07/14/16--> no acute cardiopulmonary disease Blood and urine cultures from 07/13/16 are negative to date. . Family/friend interactions No family/friends at bedside. Family is aggressive goals of remained resolute. I doubt will be changes unless there is a significant change in the patient's clinical condition. . Advance Directives Living Will: Completed, but not made available Health Care Surrogate: Completed, but not made available Advance Directive Specifics Date completed: A living will was shown to our palliative care psych social worker -- Nicole Woody. Unfortunately, it did not have year/date on it and was missing appropriate witness signatures. It did show intent to designate her as the Health care surrogate. Without a year/date, it is difficult to know if the document was executed while the patient was fully capacitated or not. . Health Care Surrogate(s): A living will was shown to our palliative care psych social worker -- Nicole Woody. Unfortunately, it did not have year/date on it and was missing appropriate witness signatures. It did show intent to designate her as the Health care surrogate. Without a year/date, it is difficult to know if the document was executed while the patient was fully capacitated or not. . Documented care wishes: A living will was shown to our palliative care psych social worker -- Nicole Woody. Unfortunately, it did not have year/date on it and was missing appropriate witness signatures. It did show intent to designate her as the Health care surrogate. Without a year/date, it is difficult to know if the document was executed while the patient was fully capacitated or not. . . Objective Vital Signs Date Time Temp Pulse Resp B/P Pulse Ox O2 Delivery O2 Flow Rate FiO2 07/14/16 16:00 30 07/14/16 16:00 68 07/14/16 16:00 98.3 110 22 139/80 99 07/14/16 15:00 100 30 07/14/16 14:00 68 07/14/16 12:07 100 30 07/14/16 12:00 68 07/14/16 12:00 98.3 110 22 139/80 99 07/14/16 12:00 30 07/14/16 10:00 68 07/14/16 08:43 100 30 07/14/16 08:00 30 07/14/16 08:00 68 07/14/16 08:00 98.3 68 22 148/67 99 07/14/16 06:00 109 07/14/16 04:03 100 30 07/14/16 04:00 30 07/14/16 04:00 107 07/14/16 04:00 98.6 107 22 112/74 100 07/14/16 02:00 101 07/14/16 00:08 100 30 07/14/16 00:00 30 07/14/16 00:00 105 07/14/16 00:00 98.3 105 24 126/72 100 07/13/16 22:00 108 07/13/16 21:12 26 07/13/16 20:42 100 30 07/13/16 20:00 98.7 109 28 112/72 100 07/13/16 20:00 109 07/13/16 18:00 104 Intake & Output 07/14/16 07/14/16 07:00 19:00 Intake Total 991 ml 550 ml Output Total 500 ml 225 ml Balance 491 ml 325 ml Tube Feeding 871 ml 450 ml Other 120 ml 100 ml Output Urine Total 500 ml 225 ml # Bowel Movements 1 2 . Physical Exam CONSTITUTIONAL/GENERAL: This is an adequately nourished patient, in no apparent distress. She is s/p tracheostomy 07/03/16 in an MICU bed. She awakens to voice/exam but does not track me and does not follow commands. TUBES/LINES/DRAINS: Cortes catheter, IV; tracheostomy; T-tube; PEG tube; SCDs ; PODUS boots. SKIN: No jaundice, rashes, or lesions. No wounds seen anteriorly. Skin temperature appropriate. Not diaphoretic. NECK: Trach site not inflamed. CARDIOVASCULAR: Tachycardic. Regular rhythm without murmurs, gallops, or rubs. No JVD. RESPIRATORY/CHEST: Symmetric, unlabored respirations. Lungs clear. GASTROINTESTINAL: Abdomen obese, soft, non-tender, nondistended. No hepato- splenomegaly, or palpable masses. No guarding. Bowel sounds present. GENITOURINARY: Without palpable bladder distension. Cortes catheter in place. MUSCULOSKELETAL: Extremities without clubbing, cyanosis, or edema. No mottling. NEUROLOGICAL: Awakens to exam but does not track and unable to follow commands. PSYCHIATRIC: Unable to assess due to level of responsiveness. . . . Diagnostic Tests Laboratory Laboratory Tests Test 07/13/16 07/13/16 07/13/16 07/14/16 05:22 10:40 17:11 05:43 White Blood Count 14.9 TH/MM3 11.1 TH/MM3 (4.0-11.0) (4.0-11.0) Red Blood Count 4.12 MIL/MM3 4.01 MIL/MM3 (4.00-5.30) (4.00-5.30) Hemoglobin 11.0 GM/DL 10.7 GM/DL (11.6-15.3) (11.6-15.3) Hematocrit 33.5 % 32.8 % (35.0-46.0) (35.0-46.0) Mean Corpuscular Volume 81.2 FL 81.7 FL (80.0-100.0) (80.0-100.0) Mean Corpuscular Hemoglobin 26.6 PG 26.7 PG (27.0-34.0) (27.0-34.0) Mean Corpuscular Hemoglobin 32.8 % 32.7 % Concent (32.0-36.0) (32.0-36.0) Red Cell Distribution Width 16.4 % 16.7 % (11.6-17.2) (11.6-17.2) Platelet Count 278 TH/MM3 259 TH/MM3 (150-450) (150-450) Mean Platelet Volume 10.2 FL 10.1 FL (7.0-11.0) (7.0-11.0) Sodium Level 140 MEQ/L 142 MEQ/L (136-145) (136-145) Potassium Level 4.2 MEQ/L 3.9 MEQ/L (3.5-5.1) (3.5-5.1) Chloride Level 103 MEQ/L 106 MEQ/L (98-107) (98-107) Carbon Dioxide Level 27.5 MEQ/L 27.8 MEQ/L (21.0-32.0) (21.0-32.0) Anion Gap 10 MEQ/L (5-15) 8 MEQ/L (5-15) Blood Urea Nitrogen 13 MG/DL (7-18) 18 MG/DL (7-18) Creatinine 0.45 MG/DL 0.44 MG/DL (0.50-1.00) (0.50-1.00) Estimat Glomerular Filtration 175 ML/MIN 180 ML/MIN Rate (>89) (>89) Random Glucose 111 MG/DL 108 MG/DL (74-106) (74-106) Calcium Level 9.4 MG/DL 9.2 MG/DL (8.5-10.1) (8.5-10.1) Procalcitonin 0.23 ng/mL (0.00-0.50) Human Chorionic Gonadotropin, LESS THAN 1 Quant MIU/ML (0-5) Urine Color YELLOW (YELLW/STRAW) Urine Turbidity CLEAR (CLEAR) Urine pH 6.5 (5.0-8.5) Urine Specific [place] 1.029 (1.002-1.035) Urine Protein 100 mg/dL (NEG-TRACE) Urine Glucose (UA) NEG mg/dL (NEG) Urine Ketones NEG mg/dL (NEG) Urine Occult Blood NEG (NEG) Urine Nitrite POS (NEG) Urine Bilirubin NEG (NEG) Urine Urobilinogen LESS THAN 2.0 MG/DL (LESS THAN 2.0) Urine Leukocyte Esterase MOD (NEG) Urine RBC 8 /hpf (0-3) Urine WBC 42 /hpf (0-5) Urine Squamous Epithelial 1 /hpf (0-5) Cells Urine Bacteria OCC /hpf (NONE) Urine Mucus FEW /lpf (OCC) Microscopic Urinalysis Comment CATH-CULTURE IND Neutrophils (%) (Auto) 75.9 % (16.0-70.0) Lymphocytes (%) (Auto) 16.0 % (9.0-44.0) Monocytes (%) (Auto) 7.4 % (0.0-8.0) Eosinophils (%) (Auto) 0.5 % (0.0-4.0) Basophils (%) (Auto) 0.2 % (0.0-2.0) Neutrophils # (Auto) 8.4 TH/MM3 (1.8-7.7) Lymphocytes # (Auto) 1.8 TH/MM3 (1.0-4.8) Monocytes # (Auto) 0.8 TH/MM3 (0-0.9) Eosinophils # (Auto) 0.1 TH/MM3 (0-0.4) Basophils # (Auto) 0.0 TH/MM3 (0-0.2) CBC Comment DIFF FINAL Differential Comment Phosphorus Level 3.6 MG/DL (2.5-4.9) Magnesium Level 2.5 MG/DL (1.5-2.5) Total Bilirubin 0.2 MG/DL (0.2-1.0) Aspartate Amino Transf 18 U/L (15-37) (AST/SGOT) Alanine Aminotransferase 26 U/L (10-53) (ALT/SGPT) Alkaline Phosphatase 128 U/L (45-117) Total Protein 8.4 GM/DL (6.4-8.2) Albumin 2.5 GM/DL (3.4-5.0) Test 07/14/16 16:30 Urine Color YELLOW (YELLW/STRAW) Urine Turbidity HAZY (CLEAR) Urine pH 5.5 (5.0-8.5) Urine Specific [place] 1.012 (1.002-1.035) Urine Protein 30 mg/dL (NEG-TRACE) Urine Glucose (UA) NEG mg/dL (NEG) Urine Ketones NEG mg/dL (NEG) Urine Occult Blood MOD (NEG) Urine Nitrite NEG (NEG) Urine Bilirubin NEG (NEG) Urine Urobilinogen LESS THAN 2.0 MG/DL (LESS THAN 2.0) Urine Leukocyte Esterase LARGE (NEG) Urine RBC 6 /hpf (0-3) Urine WBC 26 /hpf (0-5) Urine Squamous Epithelial 3 /hpf (0-5) Cells Urine Bacteria MOD /hpf (NONE) Urine Mucus FEW /lpf (OCC) Microscopic Urinalysis Comment CATH-CULTURE IND . Result Diagram: 07/14/16 0543 07/14/16 0543 Microbiology Microbiology Date/Time Procedure Status Source Growth 07/13/16 10:40 Aerobic Blood Culture - Preliminary Resulted Blood Peripheral NO GROWTH IN 1 DAY 07/13/16 10:40 Anaerobic Blood Culture - Preliminary Resulted Blood Peripheral NO GROWTH IN 1 DAY 07/13/16 10:45 Aerobic Blood Culture - Preliminary Resulted Blood Peripheral NO GROWTH IN 1 DAY 07/13/16 10:45 Anaerobic Blood Culture - Preliminary Resulted Blood Peripheral NO GROWTH IN 1 DAY 07/13/16 17:11 Urine Culture - Final Complete Urine Catheterized Urine 07/14/16 16:30 Urine Culture Received Urine Catheterized Urine Pending . Imaging Last Impressions Lower Extremity Ultrasound 07/14/16 0800 Signed Impressions: Service Date/Time: Thursday, July 14, 2016 10:47 - CONCLUSION: Negative exam with no evidence of deep venous thrombosis. Rico Pedraza MD Chest X-Ray 07/14/16 0600 Signed Impressions: Service Date/Time: Thursday, July 14, 2016 04:23 - CONCLUSION: No acute cardiopulmonary disease. Jose Martinez MD Abdomen X-Ray 06/26/16 0000 Signed Impressions: Service Date/Time: June 13:08 - CONCLUSION: 1. Nasogastric tube in good position. Benign-appearing bowel gas pattern. Jd Underwood MD Abdomen/Pelvis CT 06/17/16 0000 Signed Impressions: Service Date/Time: Friday, June 17, 2016 04:12 - CONCLUSION: 1. New bibasilar atelectasis. 2. There is some mild dilatation of the small bowel. There is a mild to moderate distention of the colon down to the rectum suggestive of a diffuse adynamic ileus. No definite mechanical obstruction is seen. 3. Otherwise, no other significant changes compared to the prior study. Andi Luna MD Brain MRI 06/15/16 0000 Signed Impressions: Service Date/Time: Wednesday, June 15, 2016 09:10 - CONCLUSION: No acute abnormality seen. 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 Reginaldo Cain MD Head Magnetic Resonance Angiography 06/14/16 0000 Signed Impressions: Service Date/Time: Tuesday, June 14, 2016 18:23 - CONCLUSION: No evidence of vessel truncation or aneurysm. Simone Graham MD Liver Ultrasound 06/13/16 0000 Signed Impressions: Service Date/Time: Monday, June 13, 2016 09:42 - CONCLUSION: 1. Small amount free fluid identified medial to the lower pole of the right kidney. 2. Slight increased hepatic echotexture suggesting some degree of fatty infiltration. 3. Please note the body and tail of the pancreas are obscured by overlying bowel gas. The head neck and uncinate process are sonographically intact. Mauro Leslie MD Head CT 06/12/16 1657 Signed Impressions: Service Date/Time: May 21:37 - CONCLUSION: Unremarkable study. Jose Martinez MD Renal Ultrasound 06/12/16 0000 Signed Impressions: Service Date/Time: May 23:51 - CONCLUSION: 1. Mild pelvocaliectasis on the right. No hydronephrosis involving either kidney. Simone Woody Jr., MD Chest CT 06/12/16 0000 Signed Impressions: Service Date/Time: May 21:39 - CONCLUSION: Right upper lobe parenchymal process may represent pneumonia, however follow up is suggested with repeat noncontrast chest CT in 2-4 weeksafter appropriate clinical therapy. Jose Martinez MD . Procedures INTUBATION 06/12/16 EXTUBATION 06/25/16 PEG TUBE 06/27/16 Bronchoscopy /BAL Tracheostomy 07/03/16 . Assessment and Plan Disease Oriented Problem List: (1) respiratory failure Comment: Now status post tracheostomy. Tolerating C Pap to T-tube. . . (2) UTI/sepsis Comment: Urine cultures have grown out E coli and Pseudomonas. . (3) history of ischemic strokes 2010, with right hemiplegia (4) Seizure Comment: Possible seizure seen on EEG. Started on levitiracetam by neurologist. . (5) encephalopathy, acute and chronic (6) hypertension (7) anemia Comment: appears to be from blood loss but unkown site. Hemoccult was negative. EGD showed gastritis but no active bleeding. Hemoglobin now remaining stable. . . (8) Hypoalbuminemia (9) elevated LFTs, improving Comment: Resolved (10) hypernatremia, resolved (11) acute kidney injury, resolved Symptom Scale: (1) dyspnea 0-10 Scale: 0 Comment: Dyspnea currently being addressed with ventilator. Not tolerating C Pap for hours at a time. (2) encephalopathy 0-10 Scale: Unable to quantify Comment: Unable to follow commands. . Pertinent Non-Medical Issues Psychosocial: for 13 years, 2 daughters including a 12-year-old from previous relationships, worked as an [employer] for many years. Spiritual: Spirituality has been very important for the patient, and the patient 's does believe that she would appreciate advanced practice registered nurse visits. Legal: The patient lacks capacity for decision making, and it is very unlikely that she will regain that capacity. Her is the healthcare proxy decision-maker, as there is no reported health care surrogacy form. Ethical issues impacting care: Important Contacts : Josiah Velazquez [phone] NOTE: The patient's wants to be the primary point of contact, as he does not want the patient's older daughter trying to make decisions about the patient's care. . Prognosis The patient's prognosis is quite poor. She was already a debilitated bedbound hemiplegic post stroke patient, at risk for infections and other complications, and now she is more debilitated and with respiratory failure and significant encephalopathy. She will be appropriate for hospice services if/when the patient's decides to transition to comfort care. . Code Status: Full Code Plan ==FULL CODE, confirmed by patient's 06/24/16 and again on 06/30/16 ==GOALS: The patient's reports he wants "everything possible done to save my 's life." He has approved tracheostomy and wants ongoing blood transfusions as needed. He is aware that "there will come a time when everything is worse and she won't get better" and he may want to "let her go naturally then." He does not see her near this point now, however. ==DECISION-MAKING: The patient lacks capacity for decision making, and it is very unlikely that she will regain that capacity. Her is the healthcare proxy decision-maker, as there is no reported health care surrogacy form. ==NOTE: The patient's wants to be the primary point of contact, as he does not want the patient's older daughter (Natasha) trying to make decisions about the patient's care. == Dyspnea: Patient is improving from a respiratory standpoint. She is now tolerating trach -to-C-pap trials for hours at a time. No further recommendations at this time. == Pain: Rare pain per nursing staff. Has order for PRN fentanyl which appears to be adequate. No further recommendation at this time. == Restlessness / agitation: Now controlled. == Disposition: Will probably need LTAC or SNF if she survives the hospitalization. Discharge venue will depend in large part on respiratory status-- if she weans post tracheostomy, will probably be appropriate for local SNF. If she is unable to wean, will probably need LTAC. == Palliative care will continue to work with , update him on the patient's medical condition, and continue to discuss goals of medical treatment as the clinical course evolves. . Attestation To help prompt me to consider important information that might be impacting today's encounter and assessment, information from prior notes written by myself or my colleagues may have been "brought forward" into today's note. My signature on this note, however, is an attestation that I personally performed the exam, history, and/or decision-making noted today, and, unless otherwise indicated, the interactions with patient, family, and staff as well as the review of records all occurred today. I also attest that the listed assessment and stated plan reflect my best clinical judgment today based on the combination of historical information, prior notes, and today's exam/ interactions. When time spent is documented, it refers only to time spent today by the signer, or if indicated, combined time spent today by collaborating physician/nurse practitioner. . Carson Venegas MD July 14, 2016 17:46
[2016-07-14] MEDS: LABETALOL HCL 100 MG/20 ML VIAL IV PUSH PRN (22:04)
[2016-07-15] VITALS (18 sets, daily range): BP systolic 113–145; BP diastolic 63–97; PULSE 96–140; RESP 15–24; TEMP 97.9–98.5; O2SAT 95–100
[2016-07-15] MEDS: CHLORHEXIDINE GLUCONATE 2 % 1 PACK (2 CLOTHS) TOP SCH (04:00)
[2016-07-15] MEDS: RESP: ALBUTEROL 2.5 MG/IPRATROPIUM 0.5 MG NEB (SCH) NEB ×4 (04:10→20:42)
[2016-07-15] MEDS: CEFEPIME INJ 2,000 MG in SODIUM CHLORIDE 0.9% INJ 100 ML IV SCH ×3 (05:03→22:31)
[2016-07-15] MEDS: METOPROLOL TARTRATE 50 MG TAB PO SCH ×5 (05:04→22:31)
[2016-07-15] MEDS: NYSTATIN 100,000 U/GM PWD 15 GM BTL TOPICAL SCH ×3 (05:04→22:43)
[2016-07-15 05:49] LABS: AUTOMATED NEUTROPHIL # 11.9 TH/MM3 (1.8-7.7); BASOPHIL % 0.1 % (0.0-2.0); EOSINOPHIL % 0.2 % (0.0-4.0); HEMATOCRIT 33.2 % (35.0-46.0); HEMO FLAGS DIFF FINAL; LYMPH % 14.5 % (9.0-44.0); LYMPHOCYTE # 2.2 TH/MM3 (1.0-4.8); MEAN CORPUSCULAR HEMOGLOBIN 27.1 PG (27.0-34.0); MONO % 5.3 % (0.0-8.0); NEUT % 79.9 % (16.0-70.0); PLATELET COUNT 307 TH/MM3 (150-450); RED BLOOD COUNT 4.05 MIL/MM3 (4.00-5.30); RED CELL DISTRIBUTION WIDTH 16.6 % (11.6-17.2); WHITE BLOOD COUNT 14.9 TH/MM3 (4.0-11.0)
[2016-07-15 06:16] LABS: BICARBONATE 27.7 MEQ/L (21.0-32.0); MAGNESIUM 2.4 MG/DL (1.5-2.5); POTASSIUM 4.3 MEQ/L (3.5-5.1)
--- NOTE | 2016-07-15 07:12 | HHI.CCPN ---
Subjective Remarks/Hospital Course 56-year-old female brought in by EMS emergently as altered mental status, hypoxia and temperature 104. Patient has a history of CVA many years ago. Per caregiver she didn't feel well since yesterday and wasn't taking any of medications including baclofen. Patient was unable to communicate due to her altered mental status. As per EMS not much history was available from the family but she has history of CVA as baseline but communicates. In the emergency department patient's oxygen saturation was low 70s upon EMS arrival. They had her on oxygen via nonrebreather and sats of 93%. GCS was 6 and she was intubated by ER attending for an airway protection. 06/13 Patient is sedated with Versed and on Bicarb drip. Renal function is improving with Cr: 2.12 from 3.19 UO: 1350ml since yesterday. Afebrile. 06/14 Patient remains sedated and intubated. Afebrile. Renal function continue to improve with Cr: 1.18 today from 1.53. 06/15 No acute events overnight. Off sedation remains intubated. Patient tolerated CPAP all day yesterday. MRA brain last night is unremarkable. T:99.9 06/16 Patient remains intubated off sedation. Afebrile. Tolerated CPAP all day yesterday remains encephalopathic. 06/17 No acute events overnight. Patient is able to open her eyes but does not follow commands. T: 100.1 last night. 06/18: Remains encephalopathic, orally intubated on mechanical ventilation. 06/19: Remains encephalopathic, orally intubated on mechanical ventilation. Daily C Pap trials ongoing. 06/20: Remains encephalopathic, orally intubated on mechanical ventilation. Daily C Pap trials. Tube feeds resumed. 06/21: More awake however not following commands. Remains orally intubated on mechanical ventilation. Tolerating tube feeds. Daily C Pap trials ongoing. 06/22: Encephalopathic though more awake, arousable. Not following commands. Remains orally intubated on mechanical ventilation. Tolerating tube feeds. Daily C Pap trials. 06/23: Awake, not following commands. Remains orally intubated on mechanical ventilation. Failing C Pap trials. Tolerating tube feeds. 06/24: Opening eyes, blinks on command. Remains orally intubated on mechanical ventilation. Tolerating tube feeds. Gets tachypneic with low volumes on dropping pressure-support at C Pap trials. We'll initiate diuresis as patient isn't significantly positive fluid balance since admission due to fluids administered for sepsis which now appears to be under control. 06/25: Awake, appears to focus. Extubated today following C Pap trial. Continue diuresis. 06/26: CCM reconsult note. Patient was extubated yesterday 06/25 and apparently was doing well initially. Overnight was placed on a 100% percent nonrebreather. I was called to the bedside emergently by Denny PATINO, today around 12.30 pm, patient was more unresponsive and hypoxemic on 100% nonrebreather. On my evaluation patient's eyes were open but nonresponsive, shallow breathing. Oxygen saturation 80% on 100 percent nonrebreather. Emergently intubated and placed on mechanical ventilation. Moderate amount of white secretions at glottic opening. CXR shows RLL infiltrate with volume loss? aspiration. Sputum cx. Discuss with ID Dr. Ortiz, will place on broad-spectrum antibiotics with Zosyn 06/27: Tmax 99.6 The patient was emergently reintubated yesterday, overnight no increasing ventilatory requirements were noted. The patient underwent a bronchoscopy with BAL this a.m., cultures were sent. Plan for PEG placement today. 06/28: Tmax 98.4 The patient underwent PEG placement yesterday, will resume tube feedings today. Mucomyst was initiated yesterday status post bronchial noted mucous plugs, with thick tenacious secretions. Will tentatively plan for tracheostomy next week, if unable to wean, and increasing ventilatory requirements. 06/29: She was noted to have a drop in hemoglobin last night, and received 2 units of packed red blood cells. Hemoccult has been ordered stat CBC to be followed up. No obvious signs of bleeding noted. 06/30: Hgb stable. No change in neuro status. will attempt CPAP trials. Palliative medicine, Dr. Venegas to schedule goals of care now with reintubation. 07/01: Remains encephalopathic. Hemoglobin stable at 10.0. No acute changes overnight. Discussion with palliative care team and , he would like aggressive measures/treatments to continue to include tracheostomy. General surgery has been consulted. 07/02: Afebrile. No acute changes overnight. Patient was evaluated by general surgery plans for tracheostomy in the next few days with coordination. 07/03: Afebrile. The patient was underwent percutaneous tracheostomy at bedside. Chest x-ray is pending. 07/04 No acute events overnight. s/p trach yesterday. Tolerating tube feeds. 07/05: Afebrile. The patient tolerated CPAP trials for 8 hours yesterday. She is on CPAP trials today. 07/06: The patient tolerated CPAP trials for 10 hours yesterday. Normotensive. The patient continues have heart rate low 100's. PRN beta samina utilized during the night. 07/07: The patient was placed back on the ventilator during the night last night for a"rest". The patient continues to perform a CPAP trial. The patient was noted to be slightly hypertensive, metoprolol increased to every 8 hours. LTAC placement planned. 07/08: Currently resting in bed in no acute distress. Afebrile. Tolerating tube feeds. Positive BM. 07/09: Resting in bed on PSV trial in no acute distress. Tmax 99.4. Tolerating tube feeds. Positive BM. Neurologically unchanged. 07/10: Continues on PSV trial distress. Tmax 100.1. Currently 99.5. Tolerating tube feeds. Positive BM. Eyes and mouth are open. 07/11: Currently afebrile. Tolerating tube feeds. Lasted 2 hours on T piece trial today. Currently on PSV trial 07/12: Attempting for hours and T piece today. Tmax 101.1. Currently 99.8. Moves head aware in room. Eyes and mouth are both open. Subjective 07/13: Tmax 100.1. T piece 4 hours yesterday +2 hours. Will attempt 8 hours today. Minimum secretions from tracheostomy site. Panculture today and pro- calcitonin ordered per infectious disease note 07/14 No events overnight. Afebrile. On CPAP with PS 10, PEEP:5 and FIO2 30%. Tolerating tube feeds. 07/15 Patient remains on ventilator via trach, afebrile, tachycardic. On CPAP overnight. Objective Vital Signs Date Time Temp Pulse Resp B/P Pulse Ox O2 Delivery O2 Flow Rate FiO2 07/15/16 06:00 120 07/15/16 04:05 95 30 07/15/16 04:00 98.4 22 124/74 07/13/16 16:13 T-piece 8.00 Intake and Output 07/14/16 07/14/16 07/14/16 07:59 15:59 23:59 Intake Total 504 ml 550 ml 633 ml Output Total 250 ml 225 ml 350 ml Balance 254 ml 325 ml 283 ml Result Diagram: 07/15/16 0444 07/15/16 0444 Other Results Laboratory Tests Test 07/14/16 07/15/16 16:30 04:44 Urine Color YELLOW Urine Turbidity HAZY Urine pH 5.5 Urine Specific [place] 1.012 Urine Protein 30 mg/dL Urine Glucose (UA) NEG mg/dL Urine Ketones NEG mg/dL Urine Occult Blood MOD Urine Nitrite NEG Urine Bilirubin NEG Urine Urobilinogen LESS THAN 2.0 MG/DL Urine Leukocyte Esterase LARGE Urine RBC 6 /hpf Urine WBC 26 /hpf Urine Squamous Epithelial 3 /hpf Cells Urine Bacteria MOD /hpf Urine Mucus FEW /lpf Microscopic Urinalysis Comment CATH-CULTURE IND White Blood Count 14.9 TH/MM3 Red Blood Count 4.05 MIL/MM3 Hemoglobin 11.0 GM/DL Hematocrit 33.2 % Mean Corpuscular Volume 82.0 FL Mean Corpuscular Hemoglobin 27.1 PG Mean Corpuscular Hemoglobin 33.0 % Concent Red Cell Distribution Width 16.6 % Platelet Count 307 TH/MM3 Mean Platelet Volume 10.3 FL Neutrophils (%) (Auto) 79.9 % Lymphocytes (%) (Auto) 14.5 % Monocytes (%) (Auto) 5.3 % Eosinophils (%) (Auto) 0.2 % Basophils (%) (Auto) 0.1 % Neutrophils # (Auto) 11.9 TH/MM3 Lymphocytes # (Auto) 2.2 TH/MM3 Monocytes # (Auto) 0.8 TH/MM3 Eosinophils # (Auto) 0.0 TH/MM3 Basophils # (Auto) 0.0 TH/MM3 CBC Comment DIFF FINAL Differential Comment Sodium Level 144 MEQ/L Potassium Level 4.3 MEQ/L Chloride Level 109 MEQ/L Carbon Dioxide Level 27.7 MEQ/L Anion Gap 7 MEQ/L Blood Urea Nitrogen 21 MG/DL Creatinine 0.55 MG/DL Estimat Glomerular Filtration 139 ML/MIN Rate Random Glucose 119 MG/DL Calcium Level 9.2 MG/DL Phosphorus Level 3.5 MG/DL Magnesium Level 2.4 MG/DL Imaging Last Impressions Chest X-Ray 07/14/16 0600 Signed Impressions: Service Date/Time: Thursday, July 14, 2016 04:23 - CONCLUSION: No acute cardiopulmonary disease. Jose Martinez MD Abdomen X-Ray 06/26/16 0000 Signed Impressions: Service Date/Time: June 13:08 - CONCLUSION: 1. Nasogastric tube in good position. Benign-appearing bowel gas pattern. Jd Underwood MD Abdomen/Pelvis CT 06/17/16 0000 Signed Impressions: Service Date/Time: Friday, June 17, 2016 04:12 - CONCLUSION: 1. New bibasilar atelectasis. 2. There is some mild dilatation of the small bowel. There is a mild to moderate distention of the colon down to the rectum suggestive of a diffuse adynamic ileus. No definite mechanical obstruction is seen. 3. Otherwise, no other significant changes compared to the prior study. Andi Luna MD Brain MRI 06/15/16 0000 Signed Impressions: Service Date/Time: Wednesday, June 15, 2016 09:10 - CONCLUSION: No acute abnormality seen. 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 Reginaldo Cain MD Head Magnetic Resonance Angiography 06/14/16 0000 Signed Impressions: Service Date/Time: Tuesday, June 14, 2016 18:23 - CONCLUSION: No evidence of vessel truncation or aneurysm. Simone Graham MD Liver Ultrasound 06/13/16 0000 Signed Impressions: Service Date/Time: Monday, June 13, 2016 09:42 - CONCLUSION: 1. Small amount free fluid identified medial to the lower pole of the right kidney. 2. Slight increased hepatic echotexture suggesting some degree of fatty infiltration. 3. Please note the body and tail of the pancreas are obscured by overlying bowel gas. The head neck and uncinate process are sonographically intact. Mauro Leslie MD Head CT 06/12/16 [id number] Signed Impressions: Service Date/Time: May 21:37 - CONCLUSION: Unremarkable study. Jose Martinez MD Renal Ultrasound 06/12/16 0000 Signed Impressions: Service Date/Time: May 23:51 - CONCLUSION: 1. Mild pelvocaliectasis on the right. No hydronephrosis involving either kidney. Simone Woody Jr., MD Chest CT 06/12/16 0000 Signed Impressions: Service Date/Time: May 21:39 - CONCLUSION: Right upper lobe parenchymal process may represent pneumonia, however follow up is suggested with repeat noncontrast chest CT in 2-4 weeksafter appropriate clinical therapy. Jose Martinez MD Objective Remarks GENERAL: 56-year-old female, eyes and mouth are open on ventilator via trach. SKIN: Warm and dry. No rash HEAD: Normocephalic. EYES: Pallor present, No scleral icterus. No injection or drainage. NECK: Supple, trachea midline. Orotracheally intubated CARDIOVASCULAR: Tachycardic, RR. S1, S2 no S4. Without murmurs, gallops, or rubs. RESPIRATORY: Transmitted upper airway sounds. Diminished breath sounds in bases.. No wheezing noted GASTROINTESTINAL: Abdomen soft, non-tender, nondistended. Noted PEG in situ MUSCULOSKELETAL: No deformities. Dorsalis pedis posterior be else's are bilaterally palpable no decubitus ulcer EXTREMITIES: No significant peripheral edema NEURO: Eyes are open, mouth is open. Positive gag with trach suctioning. Withdraws to pain. A/P Assessment and Plan Neuro: Encephalopathy Left basal ganglia/IC CVA On no sedation. Monitor neuro status and avoid any sedatives. CT brain: No acute findings. UDS+ +Benzos MRA brain 06/14- Unremarkable. MRI brain 06/14 revealed lacunar infarct left basal ganglia left posterior and internal capsule s/p LP showed clear CSF and 15 WBC. EEG: Bihemispheric slowing, small sharp waves b/l Neuro is following- Dr. Boggs, On Keppra 500mg by PEG Q12 Continue Lyrica 25 mg twice a day encircling 100 mg by mouth daily/home medications Continue baclofen 10 mg 3 times a day for muscle spasms Continue as needed fentanyl 50 mcg for pain management Pulm: Vent dependent respiratory failure Acute hypoxemic respiratory failure Probable aspiration/HCAP with R volume loss Continue with vent support keep sat >92% Bronchodilators every 6 hours and as needed, ICU vent bundle. s/p perc trach placed 07/03, 8.[address] Shankar Pulm toilet, trach care, SBT daily as cherie. Continue CPAP/TP's trials as cherie CXR 07/14- No acute disease. CV: Hypertension Monitor HR and BP keep MAP>65mmHg. On Lopressor 50 mg Q6 for HR/BP control Norvasc 5mg PO daily/home medication : Monitor renal function, I/O's, avoid nephrotoxins. Electrolytes replacement per protocol. Renal US: No hydronephrosis. Renal is following- Dr. Corral GI/liver: Gastroesophageal reflux disease On Pepcid 20 milligrams by PEG qhs, tube feeds with Glucerna 1.5@60ml/hr Monitor LFT's (resolved), US liver: Fatty liver. Elevated urinary copper - GI is following. CT abdomen/pelvis 06/17- findings suggestive of adynamic ileus. No mechanical obstruction. On Reglan 5mg Iv q8 PRN, Miralax, Lactulose 06/[address] Davis ID: Staph aureus pneumonia - Continue abx ( Cefepime, Vanco) per ID, monitor for signs of infections ( Fever, WBC) Pertinent cultures: 06/12 Urine cx: E.coli 06/12 BC: No growth 06/12 CSG: NGTD 06/15 urine: E coli, sputum: MSSA 06/26: Blood sputum negative and urine cultures Pseudomonas 06/27 -bronchoscopy no growth pro-calcitonin level 0.23 on 07/13, blood cultures, urine cxs from 07/13- NGTD Antifungal cream added to medication regimen per general surgery, anterior and lateral neck areas Heme: Normocytic anemia Leukocytosis Monitor CBC, and coags. Hep plt ab negative. 06/28-Transfused 2 units of PRBCs Endo: SSI for glycemic control, TSH level: 2.5 GI Prophylaxis with Pepcid DVT prophylaxis with SCD's, Heparin SQ Palliative care Dr. Venegas, following to assist with deciding goals of therapy. Patient's wishes to continue full CODE STATUS at this time, and continued aggressive treatment/therapies. Case management pending LTAC placement Dispo: Level 2 Jose Smith MD July 15, 2016 07:12
[2016-07-15] MEDS: CHLORHEXIDINE 0.12% (ORAL KIT) 15 ML CUP MT SCH ×2 (08:00→19:50)
[2016-07-15] MEDS: amLODIPine BESYLATE 5 MG TAB PO SCH (09:45)
[2016-07-15] MEDS: BACLOFEN 10 MG TAB PO SCH ×3 (09:45→18:52)
[2016-07-15] MEDS: HEPARIN SODIUM - SQ 10,000 UNITS/ML VIAL SQ SCH ×2 (09:45→19:51)
[2016-07-15] MEDS: VANCOMYCIN INJ 1,500 MG in SODIUM CHLORID 0.9% 500 ML INJ 500 ML IV SCH (09:45)
[2016-07-15] MEDS: POLYETHYLENE GLYCOL 17 GM PKG PO SCH (09:45)
[2016-07-15] MEDS: FAMOTIDINE 20 MG TAB NG SCH (09:45)
[2016-07-15] MEDS: PREGABALIN 75 MG CAP PO SCH ×2 (09:45→19:51)
[2016-07-15] MEDS: levETIRAcetam 500 MG/5 ML UDC NG SCH ×2 (09:46→19:51)
[2016-07-15] MEDS: LACTULOSE SYRUP 20 GM/30 ML CUP PO SCH ×2 (09:46→19:51)
[2016-07-15] MEDS: SODIUM CHLORIDE 0.9% FLUSH 10 ML FLUSH IV FLUSH SCH ×2 (09:46→19:50)
[2016-07-15] MEDS ORDERED: DILTIAZEM HCL 25 MG/5 ML VIAL IV ONE ×2 (10:15→10:30)
--- NOTE | 2016-07-15 13:42 | HHI.PR ---
Addendum to Inpatient Note Additional Information repeat urine with puyria, clx P Initial clx likely contam with > 100 K mixed yani no fever + worsening leukocytosis - will cont current abx and fu P urine clx Briseida Ortiz MD July 15, 2016 13:42
--- NOTE | 2016-07-15 20:07 | EKG ---
Date Performed: 07/15/2016 Time Performed: 11:28:17 PTAGE: 56 years EKG: SINUS TACHYCARDIA ABNORMAL RHYTHM ECG PREVIOUS TRACING : 06/12/2016 17.07 Compared to prior tracing no significant change DOCTOR: Toni Rodriguez Interpretating Date/Time 07/15/2016 20:05:30
[2016-07-16] VITALS (19 sets, daily range): BP systolic 102–149; BP diastolic 67–88; PULSE 100–128; RESP 18–22; TEMP 98–98.9; O2SAT 96–100
[2016-07-16] MEDS: VANCOMYCIN INJ 1,500 MG in SODIUM CHLORID 0.9% 500 ML INJ 500 ML IV SCH ×2 (03:43→22:47)
[2016-07-16] MEDS: CHLORHEXIDINE GLUCONATE 2 % 1 PACK (2 CLOTHS) TOP SCH (03:44)
[2016-07-16] MEDS: RESP: ALBUTEROL 2.5 MG/IPRATROPIUM 0.5 MG NEB (SCH) NEB ×2 (04:10→08:16)
[2016-07-16] MEDS: CEFEPIME INJ 2,000 MG in SODIUM CHLORIDE 0.9% INJ 100 ML IV SCH ×3 (04:54→21:24)
[2016-07-16] MEDS: NYSTATIN 100,000 U/GM PWD 15 GM BTL TOPICAL SCH ×3 (04:54→22:50)
[2016-07-16] MEDS: METOPROLOL TARTRATE 50 MG TAB PO SCH ×3 (04:55→18:00)
[2016-07-16 05:35] LABS: AUTOMATED NEUTROPHIL # 12.9 TH/MM3 (1.8-7.7); BASOPHIL % 0.2 % (0.0-2.0); EOSINOPHIL % 0.3 % (0.0-4.0); HEMATOCRIT 33.2 % (35.0-46.0); HEMO FLAGS DIFF FINAL; LYMPH % 13.2 % (9.0-44.0); LYMPHOCYTE # 2.1 TH/MM3 (1.0-4.8); MEAN CELL VOLUME 82.8 FL (80.0-100.0); MEAN CORPUSCULAR HEMOGLOBIN 26.3 PG (27.0-34.0); MEAN CORPUSCULAR HGB CONC 31.8 % (32.0-36.0); MONO % 4.8 % (0.0-8.0); NEUT % 81.5 % (16.0-70.0); PLATELET COUNT 284 TH/MM3 (150-450); RED BLOOD COUNT 4.01 MIL/MM3 (4.00-5.30); RED CELL DISTRIBUTION WIDTH 16.6 % (11.6-17.2); WHITE BLOOD COUNT 15.9 TH/MM3 (4.0-11.0)
[2016-07-16 05:58] LABS: BICARBONATE 28.3 MEQ/L (21.0-32.0); POTASSIUM 3.9 MEQ/L (3.5-5.1)
--- NOTE | 2016-07-16 08:43 | HHI.CCPN ---
Subjective Remarks/Hospital Course 56-year-old female brought in by EMS emergently as altered mental status, hypoxia and temperature 104. Patient has a history of CVA many years ago. Per caregiver she didn't feel well since yesterday and wasn't taking any of medications including baclofen. Patient was unable to communicate due to her altered mental status. As per EMS not much history was available from the family but she has history of CVA as baseline but communicates. In the emergency department patient's oxygen saturation was low 70s upon EMS arrival. They had her on oxygen via nonrebreather and sats of 93%. GCS was 6 and she was intubated by ER attending for an airway protection. 06/13 Patient is sedated with Versed and on Bicarb drip. Renal function is improving with Cr: 2.12 from 3.19 UO: 1350ml since yesterday. Afebrile. 06/14 Patient remains sedated and intubated. Afebrile. Renal function continue to improve with Cr: 1.18 today from 1.53. 06/15 No acute events overnight. Off sedation remains intubated. Patient tolerated CPAP all day yesterday. MRA brain last night is unremarkable. T:99.9 06/16 Patient remains intubated off sedation. Afebrile. Tolerated CPAP all day yesterday remains encephalopathic. 06/17 No acute events overnight. Patient is able to open her eyes but does not follow commands. T: 100.1 last night. 06/18: Remains encephalopathic, orally intubated on mechanical ventilation. 06/19: Remains encephalopathic, orally intubated on mechanical ventilation. Daily C Pap trials ongoing. 06/20: Remains encephalopathic, orally intubated on mechanical ventilation. Daily C Pap trials. Tube feeds resumed. 06/21: More awake however not following commands. Remains orally intubated on mechanical ventilation. Tolerating tube feeds. Daily C Pap trials ongoing. 06/22: Encephalopathic though more awake, arousable. Not following commands. Remains orally intubated on mechanical ventilation. Tolerating tube feeds. Daily C Pap trials. 06/23: Awake, not following commands. Remains orally intubated on mechanical ventilation. Failing C Pap trials. Tolerating tube feeds. 06/24: Opening eyes, blinks on command. Remains orally intubated on mechanical ventilation. Tolerating tube feeds. Gets tachypneic with low volumes on dropping pressure-support at C Pap trials. We'll initiate diuresis as patient isn't significantly positive fluid balance since admission due to fluids administered for sepsis which now appears to be under control. 06/25: Awake, appears to focus. Extubated today following C Pap trial. Continue diuresis. 06/26: CCM reconsult note. Patient was extubated yesterday 06/25 and apparently was doing well initially. Overnight was placed on a 100% percent nonrebreather. I was called to the bedside emergently by Denny PATINO, today around 12.30 pm, patient was more unresponsive and hypoxemic on 100% nonrebreather. On my evaluation patient's eyes were open but nonresponsive, shallow breathing. Oxygen saturation 80% on 100 percent nonrebreather. Emergently intubated and placed on mechanical ventilation. Moderate amount of white secretions at glottic opening. CXR shows RLL infiltrate with volume loss? aspiration. Sputum cx. Discuss with ID Dr. Ortiz, will place on broad-spectrum antibiotics with Zosyn 06/27: Tmax 99.6 The patient was emergently reintubated yesterday, overnight no increasing ventilatory requirements were noted. The patient underwent a bronchoscopy with BAL this a.m., cultures were sent. Plan for PEG placement today. 06/28: Tmax 98.4 The patient underwent PEG placement yesterday, will resume tube feedings today. Mucomyst was initiated yesterday status post bronchial noted mucous plugs, with thick tenacious secretions. Will tentatively plan for tracheostomy next week, if unable to wean, and increasing ventilatory requirements. 06/29: She was noted to have a drop in hemoglobin last night, and received 2 units of packed red blood cells. Hemoccult has been ordered stat CBC to be followed up. No obvious signs of bleeding noted. 06/30: Hgb stable. No change in neuro status. will attempt CPAP trials. Palliative medicine, Dr. Venegas to schedule goals of care now with reintubation. 07/01: Remains encephalopathic. Hemoglobin stable at 10.0. No acute changes overnight. Discussion with palliative care team and , he would like aggressive measures/treatments to continue to include tracheostomy. General surgery has been consulted. 07/02: Afebrile. No acute changes overnight. Patient was evaluated by general surgery plans for tracheostomy in the next few days with coordination. 07/03: Afebrile. The patient was underwent percutaneous tracheostomy at bedside. Chest x-ray is pending. 07/04 No acute events overnight. s/p trach yesterday. Tolerating tube feeds. 07/05: Afebrile. The patient tolerated CPAP trials for 8 hours yesterday. She is on CPAP trials today. 07/06: The patient tolerated CPAP trials for 10 hours yesterday. Normotensive. The patient continues have heart rate low 100's. PRN beta samina utilized during the night. 07/07: The patient was placed back on the ventilator during the night last night for a"rest". The patient continues to perform a CPAP trial. The patient was noted to be slightly hypertensive, metoprolol increased to every 8 hours. LTAC placement planned. 07/08: Currently resting in bed in no acute distress. Afebrile. Tolerating tube feeds. Positive BM. 07/09: Resting in bed on PSV trial in no acute distress. Tmax 99.4. Tolerating tube feeds. Positive BM. Neurologically unchanged. 07/10: Continues on PSV trial distress. Tmax 100.1. Currently 99.5. Tolerating tube feeds. Positive BM. Eyes and mouth are open. 07/11: Currently afebrile. Tolerating tube feeds. Lasted 2 hours on T piece trial today. Currently on PSV trial 07/12: Attempting for hours and T piece today. Tmax 101.1. Currently 99.8. Moves head aware in room. Eyes and mouth are both open. Subjective 07/13: Tmax 100.1. T piece 4 hours yesterday +2 hours. Will attempt 8 hours today. Minimum secretions from tracheostomy site. Panculture today and pro- calcitonin ordered per infectious disease note 07/14 No events overnight. Afebrile. On CPAP with PS 10, PEEP:5 and FIO2 30%. Tolerating tube feeds. 07/15 Patient remains on ventilator via trach, afebrile, tachycardic. On CPAP overnight. 07/16 Patient is back on PRVC mode. On no drips. Afebrile. Objective Vital Signs Date Time Temp Pulse Resp B/P Pulse Ox O2 Delivery O2 Flow Rate FiO2 07/16/16 08:15 98 30 07/16/16 06:00 116 07/16/16 04:00 98.2 22 149/88 07/13/16 16:13 T-piece 8.00 Intake and Output 07/15/16 07/15/16 07/16/16 08:00 16:00 00:00 Intake Total 617 ml 1234 ml 363 ml Output Total 450 ml 400 ml 200 ml Balance 167 ml 834 ml 163 ml Result Diagram: 07/16/16 0516 07/16/16 0516 Other Results Laboratory Tests Test 07/16/16 05:16 White Blood Count 15.9 TH/MM3 Red Blood Count 4.01 MIL/MM3 Hemoglobin 10.6 GM/DL Hematocrit 33.2 % Mean Corpuscular Volume 82.8 FL Mean Corpuscular Hemoglobin 26.3 PG Mean Corpuscular Hemoglobin 31.8 % Concent Red Cell Distribution Width 16.6 % Platelet Count 284 TH/MM3 Mean Platelet Volume 9.8 FL Neutrophils (%) (Auto) 81.5 % Lymphocytes (%) (Auto) 13.2 % Monocytes (%) (Auto) 4.8 % Eosinophils (%) (Auto) 0.3 % Basophils (%) (Auto) 0.2 % Neutrophils # (Auto) 12.9 TH/MM3 Lymphocytes # (Auto) 2.1 TH/MM3 Monocytes # (Auto) 0.8 TH/MM3 Eosinophils # (Auto) 0.0 TH/MM3 Basophils # (Auto) 0.0 TH/MM3 CBC Comment DIFF FINAL Differential Comment Sodium Level 146 MEQ/L Potassium Level 3.9 MEQ/L Chloride Level 111 MEQ/L Carbon Dioxide Level 28.3 MEQ/L Anion Gap 7 MEQ/L Blood Urea Nitrogen 18 MG/DL Creatinine 0.48 MG/DL Estimat Glomerular Filtration 162 ML/MIN Rate Random Glucose 124 MG/DL Calcium Level 9.0 MG/DL Imaging Last Impressions Lower Extremity Ultrasound 07/14/16 0800 Signed Impressions: Service Date/Time: Thursday, July 14, 2016 10:47 - CONCLUSION: Negative exam with no evidence of deep venous thrombosis. Rico Pedraza MD Chest X-Ray 07/14/16 0600 Signed Impressions: Service Date/Time: Thursday, July 14, 2016 04:23 - CONCLUSION: No acute cardiopulmonary disease. Jose Martinez MD Abdomen X-Ray 5/4/17 0000 Signed Impressions: Service Date/Time: June 13:08 - CONCLUSION: 1. Nasogastric tube in good position. Benign-appearing bowel gas pattern. Jd Underwood MD Abdomen/Pelvis CT 06/17/16 Signed Impressions: Service Date/Time: Friday, June 17, 2016 04:12 - CONCLUSION: 1. New bibasilar atelectasis. 2. There is some mild dilatation of the small bowel. There is a mild to moderate distention of the colon down to the rectum suggestive of a diffuse adynamic ileus. No definite mechanical obstruction is seen. 3. Otherwise, no other significant changes compared to the prior study. Andi Luna MD Brain MRI 06/15/16 Signed Impressions: Service Date/Time: Wednesday, June 15, 2016 09:10 - CONCLUSION: No acute abnormality seen. 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 Reginaldo Cain MD Head Magnetic Resonance Angiography 06/14/16 Signed Impressions: Service Date/Time: Tuesday, June 14, 2016 18:23 - CONCLUSION: No evidence of vessel truncation or aneurysm. Simone Graham MD Liver Ultrasound 06/13/16 Signed Impressions: Service Date/Time: Monday, June 13, 2016 09:42 - CONCLUSION: 1. Small amount free fluid identified medial to the lower pole of the right kidney. 2. Slight increased hepatic echotexture suggesting some degree of fatty infiltration. 3. Please note the body and tail of the pancreas are obscured by overlying bowel gas. The head neck and uncinate process are sonographically intact. Mauro Leslie MD Head CT 06/12/[id number] Signed Impressions: Service Date/Time: May 21:37 - CONCLUSION: Unremarkable study. Jose Martinez MD Renal Ultrasound 06/12/16 Signed Impressions: Service Date/Time: May 23:51 - CONCLUSION: 1. Mild pelvocaliectasis on the right. No hydronephrosis involving either kidney. Simone Woody Jr., MD Chest CT 06/12/16 Signed Impressions: Service Date/Time: Thursday, June 12, 2016 21:39 - CONCLUSION: Right upper lobe parenchymal process may represent pneumonia, however follow up is suggested with repeat noncontrast chest CT in 2-4 weeksafter appropriate clinical therapy. Jose Martinez MD Objective Remarks GENERAL: 56-year-old female, eyes and mouth are open on ventilator via trach. SKIN: Warm and dry. No rash HEAD: Normocephalic. EYES: Pallor present, No scleral icterus. No injection or drainage. NECK: Supple, trachea midline. Orotracheally intubated CARDIOVASCULAR: Tachycardic, RR. S1, S2 no S4. Without murmurs, gallops, or rubs. RESPIRATORY: Transmitted upper airway sounds. Diminished breath sounds in bases.. No wheezing noted GASTROINTESTINAL: Abdomen soft, non-tender, nondistended. Noted PEG in situ MUSCULOSKELETAL: No deformities. Dorsalis pedis posterior be else's are bilaterally palpable no decubitus ulcer EXTREMITIES: No significant peripheral edema NEURO: Eyes are open, mouth is open. Positive gag with trach suctioning. Withdraws to pain. A/P Assessment and Plan Neuro: Encephalopathy Left basal ganglia/IC CVA On no sedation. Monitor neuro status and avoid any sedatives. CT brain: No acute findings. UDS+ +Benzos MRA brain 06/14- Unremarkable. MRI brain 06/14 revealed lacunar infarct left basal ganglia left posterior and internal capsule s/p LP showed clear CSF and 15 WBC. EEG: Bihemispheric slowing, small sharp waves b/l Neuro is following- Dr. Boggs, On Keppra 500mg by PEG Q12 Continue Lyrica 25 mg twice a day encircling 100 mg by mouth daily/home medications Continue baclofen 10 mg 3 times a day for muscle spasms Continue as needed fentanyl 50 mcg for pain management Pulm: Vent dependent respiratory failure Acute hypoxemic respiratory failure Probable aspiration/HCAP with R volume loss Continue with vent support keep sat >92% Bronchodilators every 6 hours and as needed, ICU vent bundle. s/p perc trach placed 07/03, 8.[address] Raad Leger toilet, trach care, SBT daily as cherie. Continue CPAP/TP's trials as cherie CXR 07/14- No acute disease. CV: Hypertension Monitor HR and BP keep MAP>65mmHg. On Lopressor 50 mg Q6 for HR/BP control Norvasc 5mg PO daily/home medication : Monitor renal function, I/O's, avoid nephrotoxins. Electrolytes replacement per protocol. Renal US: No hydronephrosis. Renal is following- Dr. Corral GI/liver: Gastroesophageal reflux disease On Pepcid 20 milligrams by PEG qhs, tube feeds with Glucerna 1.5@60ml/hr Monitor LFT's (resolved), US liver: Fatty liver. Elevated urinary copper - GI is following. CT abdomen/pelvis 06/17- findings suggestive of adynamic ileus. No mechanical obstruction. On Reglan 5mg Iv q8 PRN, Miralax, Lactulose 06/[address] Davis ID: Staph aureus pneumonia - Continue abx ( Cefepime, Vanco) per ID, monitor for signs of infections ( Fever, WBC) Pertinent cultures: 06/12 Urine cx: E.coli 06/12 BC: No growth 06/12 CSG: NGTD 06/15 urine: E coli, sputum: MSSA 06/26: Blood sputum negative and urine cultures Pseudomonas 06/27 -bronchoscopy no growth pro-calcitonin level 0.23 on 07/13, blood cultures, urine cxs from 07/13- NGTD Urine cx 07/14 >100,000 CFU/ml mixed yani Heme: Normocytic anemia Leukocytosis Monitor CBC, and coags. Hep plt ab negative. 06/28-Transfused 2 units of PRBCs Endo: SSI for glycemic control, TSH level: 2.5 GI Prophylaxis with Pepcid DVT prophylaxis with SCD's, Heparin SQ Palliative care Dr. Venegas, following to assist with deciding goals of therapy. Patient's wishes to continue full CODE STATUS at this time, and continued aggressive treatment/therapies. Case management pending LTAC placement Dispo: Level 3 Jose Smith MD July 16, 2016 08:43
[2016-07-16] MEDS: levETIRAcetam 500 MG/5 ML UDC NG SCH ×2 (09:00→21:24)
[2016-07-16] MEDS: CHLORHEXIDINE 0.12% (ORAL KIT) 15 ML CUP MT SCH ×2 (09:45→21:26)
[2016-07-16] MEDS: PREGABALIN 75 MG CAP PO SCH ×3 (09:47→22:50)
[2016-07-16] MEDS: amLODIPine BESYLATE 5 MG TAB PO SCH (09:47)
[2016-07-16] MEDS: FAMOTIDINE 20 MG TAB NG SCH (09:47)
[2016-07-16] MEDS: LACTULOSE SYRUP 20 GM/30 ML CUP PO SCH ×2 (09:47→21:25)
[2016-07-16] MEDS: POLYETHYLENE GLYCOL 17 GM PKG PO SCH (09:47)
[2016-07-16] MEDS: HEPARIN SODIUM - SQ 10,000 UNITS/ML VIAL SQ SCH ×2 (09:47→21:24)
[2016-07-16] MEDS: BACLOFEN 10 MG TAB PO SCH ×3 (09:47→18:00)
[2016-07-16] MEDS: SODIUM CHLORIDE 0.9% FLUSH 10 ML FLUSH IV FLUSH SCH ×2 (09:48→21:25)
--- NOTE | 2016-07-16 11:30 | HHI.HCPN ---
Reason for visit a. To assist with evaluation and management of symptoms including: Dyspnea , encephalopathy b. To assist medical decision maker(s) with: better understanding of current medical conditions; weighing benefits/burdens of medical treatment options; making medical treatment decisions. . Subjective/Interval History INTERVAL NOTE: No significant change. Still awaiting placement. Awake at time of my visit. She appeared to intermittently follow a couple of simple commands today -- e.g. "Close your mouth," and "Close your eyes." Nursing pain level scores are "0." No opiate analgesics since 07/12/16. Primary nurse reports the patient is tolerating tube feedings. Bowels are moving. Urine output is good. Case management continues to search for placement options reviewed Afebrile There is intermittent tachycardia CBC from 07/16/16 shows WBC 15.9; hemoglobin 10.6; platelets 284. Chemistry panel is unremarkable. Albumin remains low at 2.5 on 07/14/16 No new imaging. Urine culture from 07/14/16 grew Gram neg flakito and Group D Enterococcus. . Advance Directives Living Will: Completed, but not made available Health Care Surrogate: Completed, but not made available Advance Directive Specifics Date completed: A living will was shown to our palliative care social worker delinquency prevention -- Nicole Woody. Unfortunately, it did not have year/date on it and was missing appropriate witness signatures. It did show intent to designate her as the Health care surrogate. Without a year/date, it is difficult to know if the document was executed while the patient was fully capacitated or not. . Health Care Surrogate(s): A living will was shown to our palliative care social worker delinquency prevention -- Nicole Woody. Unfortunately, it did not have year/date on it and was missing appropriate witness signatures. It did show intent to designate her as the Health care surrogate. Without a year/date, it is difficult to know if the document was executed while the patient was fully capacitated or not. . Documented care wishes: A living will was shown to our palliative care social worker delinquency prevention -- Nicole Woody. Unfortunately, it did not have year/date on it and was missing appropriate witness signatures. It did show intent to designate her as the Health care surrogate. Without a year/date, it is difficult to know if the document was executed while the patient was fully capacitated or not. . . Objective Vital Signs Date Time Temp Pulse Resp B/P Pulse Ox O2 Delivery O2 Flow Rate FiO2 07/16/16 08:15 98 30 07/16/16 06:00 116 07/16/16 04:10 98 30 07/16/16 04:00 30 07/16/16 04:00 125 07/16/16 04:00 98.2 125 22 149/88 97 07/16/16 02:00 119 07/16/16 00:25 97 30 07/16/16 00:00 98.0 113 20 116/76 96 07/16/16 00:00 113 07/16/16 00:00 30 07/15/16 22:00 116 07/15/16 20:42 98 30 07/15/16 20:00 30 07/15/16 20:00 98.5 96 20 113/77 07/15/16 20:00 96 07/15/16 18:00 112 07/15/16 17:55 100 30 07/15/16 16:00 30 07/15/16 16:00 132 07/15/16 16:00 97.9 115 15 121/83 100 07/15/16 14:00 132 07/15/16 12:00 30 07/15/16 12:00 132 07/15/16 12:00 132 23 121/73 99 07/15/16 11:46 99 30 Intake & Output 07/16/16 07/16/16 07:00 19:00 Intake Total 1547 ml Output Total 500 ml Balance 1047 ml IV Total 598 ml Tube Feeding 749 ml Other 200 ml Output Urine Total 500 ml # Bowel Movements 1 . Physical Exam CONSTITUTIONAL/GENERAL: This is an adequately nourished patient, in no apparent distress. She is s/p tracheostomy 07/03/16 in an MICU bed. Tracks me today. No apparent distress. TUBES/LINES/DRAINS: Cortes catheter, IV; tracheostomy; T-tube; PEG tube; SCDs ; PODUS boots. SKIN: No jaundice, rashes, or lesions. No wounds seen anteriorly. Skin temperature appropriate. Not diaphoretic. NECK: Trach site not inflamed. CARDIOVASCULAR: Tachycardic. Regular rhythm without murmurs, gallops, or rubs. No JVD. RESPIRATORY/CHEST: Symmetric, unlabored respirations. Lungs clear. GASTROINTESTINAL: Abdomen obese, soft, non-tender, nondistended. No hepato- splenomegaly, or palpable masses. No guarding. Bowel sounds present. GENITOURINARY: Without palpable bladder distension. Cortes catheter in place. MUSCULOSKELETAL: Extremities without clubbing, cyanosis, or edema. No mottling. NEUROLOGICAL: Awake. Tracks me intermittently. Intermittently able to follow some simple commands -- "close your mouth," and "close our eyes." Occasional non rhythmic jerking movement of LEs. PSYCHIATRIC: Unable to assess due to level of responsiveness. . . . Diagnostic Tests Laboratory Laboratory Tests Test 07/13/16 07/14/16 07/14/16 07/15/16 17:11 05:43 16:30 04:44 Urine Color YELLOW YELLOW (YELLW/STRAW) (YELLW/STRAW) Urine Turbidity CLEAR (CLEAR) HAZY (CLEAR) Urine pH 6.5 (5.0-8.5) 5.5 (5.0-8.5) Urine Specific [place] 1.029 1.012 (1.002-1.035) (1.002-1.035) Urine Protein 100 mg/dL 30 mg/dL (NEG-TRACE) (NEG-TRACE) Urine Glucose (UA) NEG mg/dL (NEG) NEG mg/dL (NEG) Urine Ketones NEG mg/dL (NEG) NEG mg/dL (NEG) Urine Occult Blood NEG (NEG) MOD (NEG) Urine Nitrite POS (NEG) NEG (NEG) Urine Bilirubin NEG (NEG) NEG (NEG) Urine Urobilinogen LESS THAN 2.0 LESS THAN 2.0 MG/DL (LESS MG/DL (LESS THAN 2.0) THAN 2.0) Urine Leukocyte Esterase MOD (NEG) LARGE (NEG) Urine RBC 8 /hpf (0-3) 6 /hpf (0-3) Urine WBC 42 /hpf (0-5) 26 /hpf (0-5) Urine Squamous Epithelial 1 /hpf (0-5) 3 /hpf (0-5) Cells Urine Bacteria OCC /hpf (NONE) MOD /hpf (NONE) Urine Mucus FEW /lpf (OCC) FEW /lpf (OCC) Microscopic Urinalysis Comment CATH-CULTURE CATH-CULTURE IND IND White Blood Count 11.1 TH/MM3 14.9 TH/MM3 (4.0-11.0) (4.0-11.0) Red Blood Count 4.01 MIL/MM3 4.05 MIL/MM3 (4.00-5.30) (4.00-5.30) Hemoglobin 10.7 GM/DL 11.0 GM/DL (11.6-15.3) (11.6-15.3) Hematocrit 32.8 % 33.2 % (35.0-46.0) (35.0-46.0) Mean Corpuscular Volume 81.7 FL 82.0 FL (80.0-100.0) (80.0-100.0) Mean Corpuscular Hemoglobin 26.7 PG 27.1 PG (27.0-34.0) (27.0-34.0) Mean Corpuscular Hemoglobin 32.7 % 33.0 % Concent (32.0-36.0) (32.0-36.0) Red Cell Distribution Width 16.7 % 16.6 % (11.6-17.2) (11.6-17.2) Platelet Count 259 TH/MM3 307 TH/MM3 (150-450) (150-450) Mean Platelet Volume 10.1 FL 10.3 FL (7.0-11.0) (7.0-11.0) Neutrophils (%) (Auto) 75.9 % 79.9 % (16.0-70.0) (16.0-70.0) Lymphocytes (%) (Auto) 16.0 % 14.5 % (9.0-44.0) (9.0-44.0) Monocytes (%) (Auto) 7.4 % (0.0-8.0) 5.3 % (0.0-8.0) Eosinophils (%) (Auto) 0.5 % (0.0-4.0) 0.2 % (0.0-4.0) Basophils (%) (Auto) 0.2 % (0.0-2.0) 0.1 % (0.0-2.0) Neutrophils # (Auto) 8.4 TH/MM3 11.9 TH/MM3 (1.8-7.7) (1.8-7.7) Lymphocytes # (Auto) 1.8 TH/MM3 2.2 TH/MM3 (1.0-4.8) (1.0-4.8) Monocytes # (Auto) 0.8 TH/MM3 0.8 TH/MM3 (0-0.9) (0-0.9) Eosinophils # (Auto) 0.1 TH/MM3 0.0 TH/MM3 (0-0.4) (0-0.4) Basophils # (Auto) 0.0 TH/MM3 0.0 TH/MM3 (0-0.2) (0-0.2) CBC Comment DIFF FINAL DIFF FINAL Differential Comment Sodium Level 142 MEQ/L 144 MEQ/L (136-145) (136-145) Potassium Level 3.9 MEQ/L 4.3 MEQ/L (3.5-5.1) (3.5-5.1) Chloride Level 106 MEQ/L 109 MEQ/L (98-107) (98-107) Carbon Dioxide Level 27.8 MEQ/L 27.7 MEQ/L (21.0-32.0) (21.0-32.0) Anion Gap 8 MEQ/L (5-15) 7 MEQ/L (5-15) Blood Urea Nitrogen 18 MG/DL (7-18) 21 MG/DL (7-18) Creatinine 0.44 MG/DL 0.55 MG/DL (0.50-1.00) (0.50-1.00) Estimat Glomerular Filtration 180 ML/MIN 139 ML/MIN Rate (>89) (>89) Random Glucose 108 MG/DL 119 MG/DL (74-106) (74-106) Calcium Level 9.2 MG/DL 9.2 MG/DL (8.5-10.1) (8.5-10.1) Phosphorus Level 3.6 MG/DL 3.5 MG/DL (2.5-4.9) (2.5-4.9) Magnesium Level 2.5 MG/DL 2.4 MG/DL (1.5-2.5) (1.5-2.5) Total Bilirubin 0.2 MG/DL (0.2-1.0) Aspartate Amino Transf 18 U/L (15-37) (AST/SGOT) Alanine Aminotransferase 26 U/L (10-53) (ALT/SGPT) Alkaline Phosphatase 128 U/L (45-117) Total Protein 8.4 GM/DL (6.4-8.2) Albumin 2.5 GM/DL (3.4-5.0) Test 07/16/16 05:16 White Blood Count 15.9 TH/MM3 (4.0-11.0) Red Blood Count 4.01 MIL/MM3 (4.00-5.30) Hemoglobin 10.6 GM/DL (11.6-15.3) Hematocrit 33.2 % (35.0-46.0) Mean Corpuscular Volume 82.8 FL (80.0-100.0) Mean Corpuscular Hemoglobin 26.3 PG (27.0-34.0) Mean Corpuscular Hemoglobin 31.8 % Concent (32.0-36.0) Red Cell Distribution Width 16.6 % (11.6-17.2) Platelet Count 284 TH/MM3 (150-450) Mean Platelet Volume 9.8 FL (7.0-11.0) Neutrophils (%) (Auto) 81.5 % (16.0-70.0) Lymphocytes (%) (Auto) 13.2 % (9.0-44.0) Monocytes (%) (Auto) 4.8 % (0.0-8.0) Eosinophils (%) (Auto) 0.3 % (0.0-4.0) Basophils (%) (Auto) 0.2 % (0.0-2.0) Neutrophils # (Auto) 12.9 TH/MM3 (1.8-7.7) Lymphocytes # (Auto) 2.1 TH/MM3 (1.0-4.8) Monocytes # (Auto) 0.8 TH/MM3 (0-0.9) Eosinophils # (Auto) 0.0 TH/MM3 (0-0.4) Basophils # (Auto) 0.0 TH/MM3 (0-0.2) CBC Comment DIFF FINAL Differential Comment Sodium Level 146 MEQ/L (136-145) Potassium Level 3.9 MEQ/L (3.5-5.1) Chloride Level 111 MEQ/L (98-107) Carbon Dioxide Level 28.3 MEQ/L (21.0-32.0) Anion Gap 7 MEQ/L (5-15) Blood Urea Nitrogen 18 MG/DL (7-18) Creatinine 0.48 MG/DL (0.50-1.00) Estimat Glomerular Filtration 162 ML/MIN Rate (>89) Random Glucose 124 MG/DL (74-106) Calcium Level 9.0 MG/DL (8.5-10.1) . Result Diagram: 07/16/1616 07/16/16515 Microbiology Microbiology Date/Time Procedure Status Source Growth 07/13/16 17:11 Urine Culture - Final Complete Urine Catheterized Urine 07/14/16 16:30 Urine Culture - Preliminary Resulted Urine Catheterized Urine Gram Negative Flakito Group D Enterococcus . Imaging Last Impressions Lower Extremity Ultrasound 07/14/16 0800 Signed Impressions: Service Date/Time: Thursday, July 14, 2016 10:47 - CONCLUSION: Negative exam with no evidence of deep venous thrombosis. Rico Pedraza MD Chest X-Ray 07/14/16 0600 Signed Impressions: Service Date/Time: Thursday, July 14, 2016 04:23 - CONCLUSION: No acute cardiopulmonary disease. Jose Martinez MD Abdomen X-Ray 06/26/16 0000 Signed Impressions: Service Date/Time: June 13:08 - CONCLUSION: 1. Nasogastric tube in good position. Benign-appearing bowel gas pattern. Jd Underwood MD Abdomen/Pelvis CT 06/17/16 0000 Signed Impressions: Service Date/Time: Friday, June 17, 2016 04:12 - CONCLUSION: 1. New bibasilar atelectasis. 2. There is some mild dilatation of the small bowel. There is a mild to moderate distention of the colon down to the rectum suggestive of a diffuse adynamic ileus. No definite mechanical obstruction is seen. 3. Otherwise, no other significant changes compared to the prior study. Andi Luna MD Brain MRI 06/15/16 0000 Signed Impressions: Service Date/Time: Wednesday, June 15, 2016 09:10 - CONCLUSION: No acute abnormality seen. 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 Reginaldo Cain MD Head Magnetic Resonance Angiography 06/14/16 0000 Signed Impressions: Service Date/Time: Tuesday, June 14, 2016 18:23 - CONCLUSION: No evidence of vessel truncation or aneurysm. Simone Graham MD Liver Ultrasound 06/13/16 0000 Signed Impressions: Service Date/Time: Monday, June 13, 2016 09:42 - CONCLUSION: 1. Small amount free fluid identified medial to the lower pole of the right kidney. 2. Slight increased hepatic echotexture suggesting some degree of fatty infiltration. 3. Please note the body and tail of the pancreas are obscured by overlying bowel gas. The head neck and uncinate process are sonographically intact. Mauro Leslie MD Head CT 06/12/16 1657 Signed Impressions: Service Date/Time: May 21:37 - CONCLUSION: Unremarkable study. Jose Martinez MD Renal Ultrasound 06/12/16 0000 Signed Impressions: Service Date/Time: May 23:51 - CONCLUSION: 1. Mild pelvocaliectasis on the right. No hydronephrosis involving either kidney. Simone oWody Jr., MD Chest CT 06/12/16 0000 Signed Impressions: Service Date/Time: May 21:39 - CONCLUSION: Right upper lobe parenchymal process may represent pneumonia, however follow up is suggested with repeat noncontrast chest CT in 2-4 weeksafter appropriate clinical therapy. Jose Martinez MD . Procedures INTUBATION 06/12/16 EXTUBATION 06/25/16 PEG TUBE 06/27/16 Bronchoscopy /BAL Tracheostomy 07/03/16 . Assessment and Plan Disease Oriented Problem List: (1) respiratory failure Comment: Now status post tracheostomy. Tolerating C Pap to T-tube. . . (2) UTI/sepsis Comment: Urine cultures have grown out E coli and Pseudomonas. Culture of 07/14/16 growing Group D enterococcus and a Gram neg flakito. . (3) history of ischemic strokes 2010, with right hemiplegia (4) Seizure Comment: Possible seizure seen on EEG. Started on levitiracetam by neurologist. . (5) encephalopathy, acute and chronic (6) hypertension (7) anemia Comment: appears to be from blood loss but unkown site. Hemoccult was negative. EGD showed gastritis but no active bleeding. Hemoglobin now remaining stable. . . (8) Hypoalbuminemia (9) elevated LFTs, improving Comment: Resolved (10) hypernatremia, resolved (11) acute kidney injury, resolved Symptom Scale: (1) dyspnea 0-10 Scale: 0 Comment: Dyspnea currently being addressed with ventilator. Not tolerating C Pap for hours at a time. (2) encephalopathy 0-10 Scale: Unable to quantify Comment: Appeared to intermittently follow some simple commands ("close your mouth," "close your eyes" on 07/16/16) . . Pertinent Non-Medical Issues Psychosocial: for 13 years, 2 daughters including a 12-year-old from previous relationships, worked as an SENIOR CATEGORY MANAGER for many years. Spiritual: Spirituality has been very important for the patient, and the patient 's does believe that she would appreciate die mounter visits. Legal: The patient lacks capacity for decision making, and it is very unlikely that she will regain that capacity. Her is the healthcare proxy decision-maker, as there is no reported health care surrogacy form. Ethical issues impacting care: Important Contacts : Josiah Velazquez [phone] NOTE: The patient's wants to be the primary point of contact, as he does not want the patient's older daughter trying to make decisions about the patient's care. . Prognosis The patient's prognosis is quite poor. She was already a debilitated bedbound hemiplegic post stroke patient, at risk for infections and other complications, and now she is more debilitated and with respiratory failure and significant encephalopathy. She will be appropriate for hospice services if/when the patient's decides to transition to comfort care. . Code Status: Full Code Plan ==FULL CODE, confirmed by patient's 06/24/16 and again on 06/30/16 ==GOALS: The patient's reports he wants "everything possible done to save my 's life." He has approved tracheostomy and wants ongoing blood transfusions as needed. He is aware that "there will come a time when everything is worse and she won't get better" and he may want to "let her go naturally then." He does not see her near this point now, however. ==DECISION-MAKING: The patient lacks capacity for decision making, and it is very unlikely that she will regain that capacity. Her is the healthcare proxy decision-maker, as there is no reported health care surrogacy form. ==NOTE: The patient's wants to be the primary point of contact, as he does not want the patient's older daughter (Natasha) trying to make decisions about the patient's care. == Dyspnea: Patient is improving from a respiratory standpoint. She is now tolerating trach -to-C-pap trials for hours at a time. No further recommendations at this time. == Pain: Rare pain per nursing staff. Has order for PRN fentanyl which appears to be adequate. No further recommendation at this time. == Restlessness / agitation: Now controlled. == Disposition: Will probably need LTAC or SNF if she survives the hospitalization. Discharge venue will depend in large part on respiratory status-- if she weans post tracheostomy, will probably be appropriate for local SNF. If she is unable to wean, will probably need LTAC. == Palliative care will continue to work with , update him on the patient's medical condition, and continue to discuss goals of medical treatment as the clinical course evolves. . Carson Venegas MD July 16, 2016 11:30
[2016-07-16] MEDS: RESP: ALBUTEROL 2.5 MG/IPRATROPIUM 0.5 MG NEB (PRN) NEB (14:19)
--- NOTE | 2016-07-16 14:44 | HHI.IDPN ---
Subjective Subjective Remarks no fever but WBC going up repeat WBC 15.9 Repeat urine clx with GNB and enterococcus, S P Antibiotics cefepime vancomycin Past Medical History Reviewed Allergies: Coded Allergies: DO NOT USE (Verified Allergy, Mild, Hallucinations, 06/12/16) Objective . Vital Signs Date Time Temp Pulse Resp B/P Pulse Ox O2 Delivery O2 Flow Rate FiO2 07/16/16 12:12 99 30 07/16/16 08:15 98 30 07/16/16 08:00 115 07/16/16 08:00 30 07/16/16 08:00 98.6 124 20 139/88 98 07/16/16 06:00 116 07/16/16 04:10 98 30 07/16/16 04:00 30 07/16/16 04:00 125 07/16/16 04:00 98.2 125 22 149/88 97 07/16/16 02:00 119 07/16/16 00:25 97 30 07/16/16 00:00 98.0 113 20 116/76 96 07/16/16 00:00 113 07/16/16 00:00 30 07/15/16 22:00 116 07/15/16 20:42 98 30 07/15/16 20:00 30 07/15/16 20:00 98.5 96 20 113/77 07/15/16 20:00 96 07/15/16 18:00 112 07/15/16 17:55 100 30 07/15/16 16:00 30 07/15/16 16:00 132 07/15/16 16:00 97.9 115 15 121/83 100 07/15/16 07/15/16 07/16/16 14:59 22:59 06:59 Intake Total 1234 ml 363 ml 1184 ml Output Total 400 ml 200 ml 300 ml Balance 834 ml 163 ml 884 ml IV Total 603 ml 598 ml Tube Feeding 631 ml 363 ml 386 ml Other 200 ml Output Urine Total 400 ml 200 ml 300 ml # Bowel Movements 1 . Laboratory Tests Test 07/15/16 07/16/16 04:44 05:16 White Blood Count 14.9 TH/MM3 15.9 TH/MM3 Red Blood Count 4.05 MIL/MM3 4.01 MIL/MM3 Hemoglobin 11.0 GM/DL 10.6 GM/DL Hematocrit 33.2 % 33.2 % Mean Corpuscular Volume 82.0 FL 82.8 FL Mean Corpuscular Hemoglobin 27.1 PG 26.3 PG Mean Corpuscular Hemoglobin 33.0 % 31.8 % Concent Red Cell Distribution Width 16.6 % 16.6 % Platelet Count 307 TH/MM3 284 TH/MM3 Mean Platelet Volume 10.3 FL 9.8 FL Neutrophils (%) (Auto) 79.9 % 81.5 % Lymphocytes (%) (Auto) 14.5 % 13.2 % Monocytes (%) (Auto) 5.3 % 4.8 % Eosinophils (%) (Auto) 0.2 % 0.3 % Basophils (%) (Auto) 0.1 % 0.2 % Neutrophils # (Auto) 11.9 TH/MM3 12.9 TH/MM3 Lymphocytes # (Auto) 2.2 TH/MM3 2.1 TH/MM3 Monocytes # (Auto) 0.8 TH/MM3 0.8 TH/MM3 Eosinophils # (Auto) 0.0 TH/MM3 0.0 TH/MM3 Basophils # (Auto) 0.0 TH/MM3 0.0 TH/MM3 CBC Comment DIFF FINAL DIFF FINAL Differential Comment Laboratory Tests Test 07/15/16 07/16/16 04:44 05:16 Sodium Level 144 MEQ/L 146 MEQ/L Potassium Level 4.3 MEQ/L 3.9 MEQ/L Chloride Level 109 MEQ/L 111 MEQ/L Carbon Dioxide Level 27.7 MEQ/L 28.3 MEQ/L Anion Gap 7 MEQ/L 7 MEQ/L Blood Urea Nitrogen 21 MG/DL 18 MG/DL Creatinine 0.55 MG/DL 0.48 MG/DL Estimat Glomerular Filtration 139 ML/MIN 162 ML/MIN Rate Random Glucose 119 MG/DL 124 MG/DL Calcium Level 9.2 MG/DL 9.0 MG/DL Phosphorus Level 3.5 MG/DL Magnesium Level 2.4 MG/DL Microbiology Date/Time Procedure Status Source Growth 07/13/16 17:11 Urine Culture - Final Complete Urine Catheterized Urine 07/14/16 16:30 Urine Culture - Preliminary Resulted Urine Catheterized Urine Gram Negative Flakito Group D Enterococcus Imaging Last Impressions Lower Extremity Ultrasound 07/14/16 0800 Signed Impressions: Service Date/Time: Thursday, July 14, 2016 10:47 - CONCLUSION: Negative exam with no evidence of deep venous thrombosis. Rico Pedraza MD Chest X-Ray 07/14/16 0600 Signed Impressions: Service Date/Time: Thursday, July 14, 2016 04:23 - CONCLUSION: No acute cardiopulmonary disease. Jose Martinez MD Abdomen X-Ray 06/26/16 0000 Signed Impressions: Service Date/Time: June 13:08 - CONCLUSION: 1. Nasogastric tube in good position. Benign-appearing bowel gas pattern. Jd Underwood MD Abdomen/Pelvis CT 06/17/16 0000 Signed Impressions: Service Date/Time: Friday, June 17, 2016 04:12 - CONCLUSION: 1. New bibasilar atelectasis. 2. There is some mild dilatation of the small bowel. There is a mild to moderate distention of the colon down to the rectum suggestive of a diffuse adynamic ileus. No definite mechanical obstruction is seen. 3. Otherwise, no other significant changes compared to the prior study. Andi Luna MD Brain MRI 06/15/16 0000 Signed Impressions: Service Date/Time: Wednesday, June 15, 2016 09:10 - CONCLUSION: No acute abnormality seen. 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 Reginaldo Cain MD Head Magnetic Resonance Angiography 06/14/16 0000 Signed Impressions: Service Date/Time: Tuesday, June 14, 2016 18:23 - CONCLUSION: No evidence of vessel truncation or aneurysm. Simone Graham MD Liver Ultrasound 06/13/16 0000 Signed Impressions: Service Date/Time: Monday, June 13, 2016 09:42 - CONCLUSION: 1. Small amount free fluid identified medial to the lower pole of the right kidney. 2. Slight increased hepatic echotexture suggesting some degree of fatty infiltration. 3. Please note the body and tail of the pancreas are obscured by overlying bowel gas. The head neck and uncinate process are sonographically intact. Mauro Leslie MD Head CT 06/12/16 9947 Signed Impressions: Service Date/Time: May 21:37 - CONCLUSION: Unremarkable study. Jose Martinez MD Renal Ultrasound 06/12/16 0000 Signed Impressions: Service Date/Time: May 23:51 - CONCLUSION: 1. Mild pelvocaliectasis on the right. No hydronephrosis involving either kidney. Simone Woody Jr., MD Chest CT 06/12/16 0000 Signed Impressions: Service Date/Time: May 21:39 - CONCLUSION: Right upper lobe parenchymal process may represent pneumonia, however follow up is suggested with repeat noncontrast chest CT in 2-4 weeksafter appropriate clinical therapy. Jose Martinez MD Physical Exam GENERAL: on CPAP NAD SKIN: No jaundice, rashes, or lesions. Cool and dry HEYES: Pupils equal and round and reactive. No scleral icterus. No injection or drainage. ENT: Nose without bleeding or purulent drainage. NCARDIOVASCULAR: Regular rate and rhythm without murmurs, gallops, or rubs. No JVD. Peripheral pulses symmetric. RESPIRATORY/CHEST: Bclear to auscultation GASTROINTESTINAL: Abdomen soft, no reaction to palpation, not distended. No guarding. Bowel sounds present. Incontinent of liquid brown stool GENITOURINARY: Ayoub catheter in place with cloudy yellow urine MUSCULOSKELETAL: Extremities without clubbing, cyanosis, no significant edema. NEUROLOGICAL: more awake , + opening eyes to voice not following commands, not tacking LINE no evidence of infection Assessment & Plan Remarks PNA, Staph aureus, clinically resolved - CXR from too negative Lymphocytic pleocytosis in CSF - C/S negative - VRDF negative, RPR neg - all clx are negative ARF/CKD, resolved Respiratory failure, on Tpiece, tolerating weaning Leukocytosis, worsening Persistent intermittent fever and leukocytosis, likely 2/2 UTI UTI, complicated, ayoub associated - ayoub was changed - on abx PLAN fu repeat C+S cont cefepime, vanco will adjust abx per final clx report Briseida Ortiz MD July 16, 2016 14:43
[2016-07-16] MEDS ORDERED: PHARMACY ORDERED LAB ONE (21:45)
[2016-07-17] VITALS (24 sets, daily range): BP systolic 102–146; BP diastolic 62–94; PULSE 93–116; RESP 14–34; TEMP 98.4–99.9; O2SAT 92–100
[2016-07-17] MEDS: METOPROLOL TARTRATE 50 MG TAB PO SCH ×5 (00:49→23:49)
[2016-07-17] MEDS: CHLORHEXIDINE GLUCONATE 2 % 1 PACK (2 CLOTHS) TOP SCH (04:00)
[2016-07-17] MEDS: CEFEPIME INJ 2,000 MG in SODIUM CHLORIDE 0.9% INJ 100 ML IV SCH ×2 (05:44→13:13)
[2016-07-17] MEDS: NYSTATIN 100,000 U/GM PWD 15 GM BTL TOPICAL SCH ×3 (05:45→22:37)
[2016-07-17 06:58] LABS: AUTOMATED NEUTROPHIL # 15.3 TH/MM3 (1.8-7.7); BASOPHIL % 0.1 % (0.0-2.0); EOSINOPHIL % 0.1 % (0.0-4.0); HEMATOCRIT 31.2 % (35.0-46.0); HEMO FLAGS DIFF FINAL; LYMPH % 8.9 % (9.0-44.0); LYMPHOCYTE # 1.6 TH/MM3 (1.0-4.8); MEAN CELL VOLUME 82.9 FL (80.0-100.0); MEAN CORPUSCULAR HEMOGLOBIN 26.3 PG (27.0-34.0); MEAN CORPUSCULAR HGB CONC 31.7 % (32.0-36.0); MONO % 3.6 % (0.0-8.0); NEUT % 87.3 % (16.0-70.0); PLATELET COUNT 255 TH/MM3 (150-450); RED BLOOD COUNT 3.76 MIL/MM3 (4.00-5.30); RED CELL DISTRIBUTION WIDTH 16.8 % (11.6-17.2); WHITE BLOOD COUNT 17.6 TH/MM3 (4.0-11.0)
[2016-07-17 07:13] LABS: BICARBONATE 27.1 MEQ/L (21.0-32.0); POTASSIUM 3.7 MEQ/L (3.5-5.1)
[2016-07-17] MEDS: LACTULOSE SYRUP 20 GM/30 ML CUP PO SCH (07:32)
[2016-07-17] MEDS: POLYETHYLENE GLYCOL 17 GM PKG PO SCH (07:32)
--- NOTE | 2016-07-17 08:56 | HHI.CCPN ---
Subjective Remarks/Hospital Course 56-year-old female brought in by EMS emergently as altered mental status, hypoxia and temperature 104. Patient has a history of CVA many years ago. Per caregiver she didn't feel well since yesterday and wasn't taking any of medications including baclofen. Patient was unable to communicate due to her altered mental status. As per EMS not much history was available from the family but she has history of CVA as baseline but communicates. In the emergency department patient's oxygen saturation was low 70s upon EMS arrival. They had her on oxygen via nonrebreather and sats of 93%. GCS was 6 and she was intubated by ER attending for an airway protection. 06/13 Patient is sedated with Versed and on Bicarb drip. Renal function is improving with Cr: 2.12 from 3.19 UO: 1350ml since yesterday. Afebrile. 06/14 Patient remains sedated and intubated. Afebrile. Renal function continue to improve with Cr: 1.18 today from 1.53. 06/15 No acute events overnight. Off sedation remains intubated. Patient tolerated CPAP all day yesterday. MRA brain last night is unremarkable. T:99.9 06/16 Patient remains intubated off sedation. Afebrile. Tolerated CPAP all day yesterday remains encephalopathic. 06/17 No acute events overnight. Patient is able to open her eyes but does not follow commands. T: 100.1 last night. 06/18: Remains encephalopathic, orally intubated on mechanical ventilation. 06/19: Remains encephalopathic, orally intubated on mechanical ventilation. Daily C Pap trials ongoing. 06/20: Remains encephalopathic, orally intubated on mechanical ventilation. Daily C Pap trials. Tube feeds resumed. 06/21: More awake however not following commands. Remains orally intubated on mechanical ventilation. Tolerating tube feeds. Daily C Pap trials ongoing. 06/22: Encephalopathic though more awake, arousable. Not following commands. Remains orally intubated on mechanical ventilation. Tolerating tube feeds. Daily C Pap trials. 06/23: Awake, not following commands. Remains orally intubated on mechanical ventilation. Failing C Pap trials. Tolerating tube feeds. 06/24: Opening eyes, blinks on command. Remains orally intubated on mechanical ventilation. Tolerating tube feeds. Gets tachypneic with low volumes on dropping pressure-support at C Pap trials. We'll initiate diuresis as patient isn't significantly positive fluid balance since admission due to fluids administered for sepsis which now appears to be under control. 06/25: Awake, appears to focus. Extubated today following C Pap trial. Continue diuresis. 06/26: CCM reconsult note. Patient was extubated yesterday 06/25 and apparently was doing well initially. Overnight was placed on a 100% percent nonrebreather. I was called to the bedside emergently by Denny PATINO, today around 12.30 pm, patient was more unresponsive and hypoxemic on 100% nonrebreather. On my evaluation patient's eyes were open but nonresponsive, shallow breathing. Oxygen saturation 80% on 100 percent nonrebreather. Emergently intubated and placed on mechanical ventilation. Moderate amount of white secretions at glottic opening. CXR shows RLL infiltrate with volume loss? aspiration. Sputum cx. Discuss with ID Dr. Ortiz, will place on broad-spectrum antibiotics with Zosyn 06/27: Tmax 99.6 The patient was emergently reintubated yesterday, overnight no increasing ventilatory requirements were noted. The patient underwent a bronchoscopy with BAL this a.m., cultures were sent. Plan for PEG placement today. 06/28: Tmax 98.4 The patient underwent PEG placement yesterday, will resume tube feedings today. Mucomyst was initiated yesterday status post bronchial noted mucous plugs, with thick tenacious secretions. Will tentatively plan for tracheostomy next week, if unable to wean, and increasing ventilatory requirements. 06/29: She was noted to have a drop in hemoglobin last night, and received 2 units of packed red blood cells. Hemoccult has been ordered stat CBC to be followed up. No obvious signs of bleeding noted. 06/30: Hgb stable. No change in neuro status. will attempt CPAP trials. Palliative medicine, Dr. Venegas to schedule goals of care now with reintubation. 07/01: Remains encephalopathic. Hemoglobin stable at 10.0. No acute changes overnight. Discussion with palliative care team and , he would like aggressive measures/treatments to continue to include tracheostomy. General surgery has been consulted. 07/02: Afebrile. No acute changes overnight. Patient was evaluated by general surgery plans for tracheostomy in the next few days with coordination. 07/03: Afebrile. The patient was underwent percutaneous tracheostomy at bedside. Chest x-ray is pending. 07/04 No acute events overnight. s/p trach yesterday. Tolerating tube feeds. 07/05: Afebrile. The patient tolerated CPAP trials for 8 hours yesterday. She is on CPAP trials today. 07/06: The patient tolerated CPAP trials for 10 hours yesterday. Normotensive. The patient continues have heart rate low 100's. PRN beta samina utilized during the night. 07/07: The patient was placed back on the ventilator during the night last night for a"rest". The patient continues to perform a CPAP trial. The patient was noted to be slightly hypertensive, metoprolol increased to every 8 hours. LTAC placement planned. 07/08: Currently resting in bed in no acute distress. Afebrile. Tolerating tube feeds. Positive BM. 07/09: Resting in bed on PSV trial in no acute distress. Tmax 99.4. Tolerating tube feeds. Positive BM. Neurologically unchanged. 07/10: Continues on PSV trial distress. Tmax 100.1. Currently 99.5. Tolerating tube feeds. Positive BM. Eyes and mouth are open. 07/11: Currently afebrile. Tolerating tube feeds. Lasted 2 hours on T piece trial today. Currently on PSV trial 07/12: Attempting for hours and T piece today. Tmax 101.1. Currently 99.8. Moves head aware in room. Eyes and mouth are both open. Subjective 07/13: Tmax 100.1. T piece 4 hours yesterday +2 hours. Will attempt 8 hours today. Minimum secretions from tracheostomy site. Panculture today and pro- calcitonin ordered per infectious disease note 07/14 No events overnight. Afebrile. On CPAP with PS 10, PEEP:5 and FIO2 30%. Tolerating tube feeds. 07/15 Patient remains on ventilator via trach, afebrile, tachycardic. On CPAP overnight. 07/16 Patient is back on PRVC mode. On no drips. Afebrile. 07/17 No events overnight. On CPAP overnight with PS 15, PEEP:5 and FIO2 30%. T: 99.9 Objective Vital Signs Date Time Temp Pulse Resp B/P Pulse Ox O2 Delivery O2 Flow Rate FiO2 07/17/16 06:00 110 07/17/16 04:19 100 30 07/17/16 04:00 99.9 16 112/68 07/13/16 16:13 T-piece 8.00 Intake and Output 07/16/16 07/16/16 07/17/16 08:00 16:00 00:00 Intake Total 1184 ml 587 ml 765 ml Output Total 300 ml 250 ml 270 ml Balance 884 ml 337 ml 495 ml Result Diagram: 07/17/1618 07/17/16617 Other Results Laboratory Tests Test 07/17/16 06:18 White Blood Count 17.6 TH/MM3 Red Blood Count 3.76 MIL/MM3 Hemoglobin 9.9 GM/DL Hematocrit 31.2 % Mean Corpuscular Volume 82.9 FL Mean Corpuscular Hemoglobin 26.3 PG Mean Corpuscular Hemoglobin 31.7 % Concent Red Cell Distribution Width 16.8 % Platelet Count 255 TH/MM3 Mean Platelet Volume 9.8 FL Neutrophils (%) (Auto) 87.3 % Lymphocytes (%) (Auto) 8.9 % Monocytes (%) (Auto) 3.6 % Eosinophils (%) (Auto) 0.1 % Basophils (%) (Auto) 0.1 % Neutrophils # (Auto) 15.3 TH/MM3 Lymphocytes # (Auto) 1.6 TH/MM3 Monocytes # (Auto) 0.6 TH/MM3 Eosinophils # (Auto) 0.0 TH/MM3 Basophils # (Auto) 0.0 TH/MM3 CBC Comment DIFF FINAL Differential Comment Sodium Level 144 MEQ/L Potassium Level 3.7 MEQ/L Chloride Level 111 MEQ/L Carbon Dioxide Level 27.1 MEQ/L Anion Gap 6 MEQ/L Blood Urea Nitrogen 15 MG/DL Creatinine 0.38 MG/DL Estimat Glomerular Filtration 213 ML/MIN Rate Random Glucose 116 MG/DL Calcium Level 8.5 MG/DL Imaging Last Impressions Lower Extremity Ultrasound 07/14/16799 Signed Impressions: Service Date/Time: Thursday, July 14, 2016 10:47 - CONCLUSION: Negative exam with no evidence of deep venous thrombosis. Rico Pedraza MD Chest X-Ray 07/14/16599 Signed Impressions: Service Date/Time: Thursday, July 14, 2016 04:23 - CONCLUSION: No acute cardiopulmonary disease. Jose Martinez MD Abdomen X-Ray 06/26/16 0000 Signed Impressions: Service Date/Time: June 13:08 - CONCLUSION: 1. Nasogastric tube in good position. Benign-appearing bowel gas pattern. Jd Underwood MD Abdomen/Pelvis CT 06/17/16 0000 Signed Impressions: Service Date/Time: Friday, June 17, 2016 04:12 - CONCLUSION: 1. New bibasilar atelectasis. 2. There is some mild dilatation of the small bowel. There is a mild to moderate distention of the colon down to the rectum suggestive of a diffuse adynamic ileus. No definite mechanical obstruction is seen. 3. Otherwise, no other significant changes compared to the prior study. Andi Luna MD Brain MRI 06/15/16 0000 Signed Impressions: Service Date/Time: Wednesday, June 15, 2016 09:10 - CONCLUSION: No acute abnormality seen. 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 Reginaldo Cain MD Head Magnetic Resonance Angiography 06/14/16 0000 Signed Impressions: Service Date/Time: Tuesday, June 14, 2016 18:23 - CONCLUSION: No evidence of vessel truncation or aneurysm. Simone Graham MD Liver Ultrasound 06/13/16 0000 Signed Impressions: Service Date/Time: Monday, June 13, 2016 09:42 - CONCLUSION: 1. Small amount free fluid identified medial to the lower pole of the right kidney. 2. Slight increased hepatic echotexture suggesting some degree of fatty infiltration. 3. Please note the body and tail of the pancreas are obscured by overlying bowel gas. The head neck and uncinate process are sonographically intact. Mauro Leslie MD Head CT 06/12/16 1657 Signed Impressions: Service Date/Time: May 21:37 - CONCLUSION: Unremarkable study. Jose Martinez MD Renal Ultrasound 06/12/16 0000 Signed Impressions: Service Date/Time: May 23:51 - CONCLUSION: 1. Mild pelvocaliectasis on the right. No hydronephrosis involving either kidney. Simone Woody Jr., MD Chest CT 06/12/16 0000 Signed Impressions: Service Date/Time: May 21:39 - CONCLUSION: Right upper lobe parenchymal process may represent pneumonia, however follow up is suggested with repeat noncontrast chest CT in 2-4 weeksafter appropriate clinical therapy. Jose Martinez MD Objective Remarks GENERAL: 56-year-old female, eyes and mouth are open on ventilator via trach. SKIN: Warm and dry. No rash HEAD: Normocephalic. EYES: Pallor present, No scleral icterus. No injection or drainage. NECK: Supple, trachea midline. Orotracheally intubated CARDIOVASCULAR: Tachycardic, RR. S1, S2 no S4. Without murmurs, gallops, or rubs. RESPIRATORY: Transmitted upper airway sounds. Diminished breath sounds in bases.. No wheezing noted GASTROINTESTINAL: Abdomen soft, non-tender, nondistended. Noted PEG in situ MUSCULOSKELETAL: No deformities. Dorsalis pedis posterior be else's are bilaterally palpable no decubitus ulcer EXTREMITIES: No significant peripheral edema NEURO: Eyes are open, mouth is open. Positive gag with trach suctioning. Withdraws to pain. A/P Assessment and Plan Neuro: Encephalopathy Left basal ganglia/IC CVA On no sedation. Monitor neuro status and avoid any sedatives. CT brain: No acute findings. UDS+ +Benzos MRA brain 06/14- Unremarkable. MRI brain 06/14 revealed lacunar infarct left basal ganglia left posterior and internal capsule s/p LP showed clear CSF and 15 WBC. EEG: Bihemispheric slowing, small sharp waves b/l Neuro is following- Dr. Boggs, On Keppra 500mg by PEG Q12 Continue Lyrica 25 mg twice a day encircling 100 mg by mouth daily/home medications Continue baclofen 10 mg 3 times a day for muscle spasms Continue as needed fentanyl 50 mcg for pain management Pulm: Vent dependent respiratory failure Acute hypoxemic respiratory failure Probable aspiration/HCAP with R volume loss Continue with vent support keep sat >92% Bronchodilators every 6 hours and as needed, ICU vent bundle. s/p perc trach placed 07/03, 8.[address] Shankar Pulm toilet, trach care, SBT daily as cherie. Continue CPAP/TP's trials as cherie CXR 07/14- No acute disease. CV: Hypertension Monitor HR and BP keep MAP>65mmHg. On Lopressor 50 mg Q6 for HR/BP control Norvasc 5mg PO daily/home medication : Monitor renal function, I/O's, avoid nephrotoxins. Electrolytes replacement per protocol. Renal US: No hydronephrosis. Renal is following- Dr. Corral GI/liver: Gastroesophageal reflux disease On Pepcid 20 milligrams by PEG qhs, tube feeds with Glucerna 1.5@60ml/hr Monitor LFT's (resolved), US liver: Fatty liver. Elevated urinary copper - GI is following. CT abdomen/pelvis 06/17- findings suggestive of adynamic ileus. No mechanical obstruction. On Reglan 5mg Iv q8 PRN, 06/[address] Davis ID: Staph aureus pneumonia - Continue abx ( Cefepime, Vanco) per ID, monitor for signs of infections ( Fever, WBC) Pertinent cultures: 06/12 Urine cx: E.coli 06/12 BC: No growth 06/12 CSG: NGTD 06/15 urine: E coli, sputum: MSSA 06/26: Blood sputum negative and urine cultures Pseudomonas 06/27 -bronchoscopy no growth pro-calcitonin level 0.23 on 07/13, blood cultures, urine cxs from 07/13- NGTD Urine cx 07/14 GNR, Group D enterococcus Heme: Normocytic anemia Leukocytosis Monitor CBC, and coags. Hep plt ab negative. 06/28-Transfused 2 units of PRBCs Endo: SSI for glycemic control, TSH level: 2.5 GI Prophylaxis with Pepcid DVT prophylaxis with SCD's, Heparin SQ 07/14 Doppler US LE negative for DVT Palliative care Dr. Venegas, following to assist with deciding goals of therapy. Patient's wishes to continue full CODE STATUS at this time, and continued aggressive treatment/therapies. Case management pending LTAC placement Dispo: Level 3 Jose Smith MD July 17, 2016 08:56
[2016-07-17] MEDS: FAMOTIDINE 20 MG TAB NG SCH (09:00)
[2016-07-17] MEDS: BACLOFEN 10 MG TAB PO SCH ×3 (09:00→17:05)
[2016-07-17] MEDS: levETIRAcetam 500 MG/5 ML UDC NG SCH ×2 (09:00→20:04)
[2016-07-17] MEDS: amLODIPine BESYLATE 5 MG TAB PO SCH (09:00)
[2016-07-17] MEDS: SODIUM CHLORIDE 0.9% FLUSH 10 ML FLUSH IV FLUSH PRN (09:10)
[2016-07-17] MEDS: HEPARIN SODIUM - SQ 10,000 UNITS/ML VIAL SQ SCH ×2 (09:10→20:04)
[2016-07-17] MEDS: CHLORHEXIDINE 0.12% (ORAL KIT) 15 ML CUP MT SCH ×2 (09:10→20:03)
[2016-07-17] MEDS: SODIUM CHLORIDE 0.9% FLUSH 10 ML FLUSH IV FLUSH SCH ×2 (09:10→20:04)
--- NOTE | 2016-07-17 14:47 | HHI.IDPN ---
Subjective Subjective Remarks no fever but WBC going up to 17+ today More interactive and awake, follows commnads She is tolearting Tpiece + having liquid stools Antibiotics cefepime vancomycin Past Medical History Reviewed Allergies: Coded Allergies: DO NOT USE (Verified Allergy, Mild, Hallucinations, 06/12/16) Objective . Vital Signs Date Time Temp Pulse Resp B/P Pulse Ox O2 Delivery O2 Flow Rate FiO2 07/17/16 14:00 93 07/17/16 12:12 96 T-piece 6.00 35 07/17/16 12:00 112 07/17/16 12:00 30 07/17/16 12:00 98.4 112 26 111/70 100 07/17/16 10:00 107 07/17/16 10:00 107 24 111/68 07/17/16 09:00 104 24 107/65 100 07/17/16 08:53 100 30 07/17/16 08:00 30 07/17/16 08:00 100 07/17/16 08:00 98.6 100 14 102/62 100 07/17/16 07:00 94 15 107/65 100 07/17/16 06:00 110 07/17/16 04:19 100 30 07/17/16 04:00 106 07/17/16 04:00 99.9 106 16 112/68 100 07/17/16 04:00 30 07/17/16 02:00 99 07/17/16 01:16 100 30 07/17/16 00:00 30 07/17/16 00:00 108 07/17/16 00:00 98.9 108 17 104/68 100 07/16/16 22:19 100 30 07/16/16 22:00 114 07/16/16 20:00 98.1 101 21 102/67 100 07/16/16 20:00 101 07/16/16 20:00 30 07/16/16 19:50 100 30 07/16/16 18:00 100 07/16/16 16:00 128 07/16/16 16:00 98.6 128 22 116/79 100 07/16/16 16:00 40 07/16/16 15:27 100 30 07/16/16 07/16/16 07/17/16 15:00 23:00 07:00 Intake Total 587 ml 765 ml 830 ml Output Total 250 ml 270 ml 240 ml Balance 337 ml 495 ml 590 ml IV Total 281 ml 500 ml Tube Feeding 367 ml 384 ml 330 ml Other 220 ml 100 ml Output Urine Total 250 ml 240 ml 240 ml Gastric Drainage Total 30 ml # Bowel Movements 1 2 0 . Laboratory Tests Test 07/16/16 07/17/16 05:16 06:18 White Blood Count 15.9 TH/MM3 17.6 TH/MM3 Red Blood Count 4.01 MIL/MM3 3.76 MIL/MM3 Hemoglobin 10.6 GM/DL 9.9 GM/DL Hematocrit 33.2 % 31.2 % Mean Corpuscular Volume 82.8 FL 82.9 FL Mean Corpuscular Hemoglobin 26.3 PG 26.3 PG Mean Corpuscular Hemoglobin 31.8 % 31.7 % Concent Red Cell Distribution Width 16.6 % 16.8 % Platelet Count 284 TH/MM3 255 TH/MM3 Mean Platelet Volume 9.8 FL 9.8 FL Neutrophils (%) (Auto) 81.5 % 87.3 % Lymphocytes (%) (Auto) 13.2 % 8.9 % Monocytes (%) (Auto) 4.8 % 3.6 % Eosinophils (%) (Auto) 0.3 % 0.1 % Basophils (%) (Auto) 0.2 % 0.1 % Neutrophils # (Auto) 12.9 TH/MM3 15.3 TH/MM3 Lymphocytes # (Auto) 2.1 TH/MM3 1.6 TH/MM3 Monocytes # (Auto) 0.8 TH/MM3 0.6 TH/MM3 Eosinophils # (Auto) 0.0 TH/MM3 0.0 TH/MM3 Basophils # (Auto) 0.0 TH/MM3 0.0 TH/MM3 CBC Comment DIFF FINAL DIFF FINAL Differential Comment Laboratory Tests Test 07/16/16 07/17/16 05:16 06:18 Sodium Level 146 MEQ/L 144 MEQ/L Potassium Level 3.9 MEQ/L 3.7 MEQ/L Chloride Level 111 MEQ/L 111 MEQ/L Carbon Dioxide Level 28.3 MEQ/L 27.1 MEQ/L Anion Gap 7 MEQ/L 6 MEQ/L Blood Urea Nitrogen 18 MG/DL 15 MG/DL Creatinine 0.48 MG/DL 0.38 MG/DL Estimat Glomerular Filtration 162 ML/MIN 213 ML/MIN Rate Random Glucose 124 MG/DL 116 MG/DL Calcium Level 9.0 MG/DL 8.5 MG/DL Microbiology Date/Time Procedure Status Source Growth 07/14/16 16:30 Urine Culture - Final Complete Urine Catheterized Urine Enterobacter Aerogenes Enterobacter Aerogenes#2 Enterococcus Faecalis Imaging Last Impressions Lower Extremity Ultrasound 07/14/16 0800 Signed Impressions: Service Date/Time: Thursday, July 14, 2016 10:47 - CONCLUSION: Negative exam with no evidence of deep venous thrombosis. Rico Pedraza MD Chest X-Ray 07/14/16 0600 Signed Impressions: Service Date/Time: Thursday, July 14, 2016 04:23 - CONCLUSION: No acute cardiopulmonary disease. Jose Martinez MD Abdomen X-Ray 06/26/16 0000 Signed Impressions: Service Date/Time: June 13:08 - CONCLUSION: 1. Nasogastric tube in good position. Benign-appearing bowel gas pattern. Jd Underwood MD Abdomen/Pelvis CT 06/17/16 0000 Signed Impressions: Service Date/Time: Friday, June 17, 2016 04:12 - CONCLUSION: 1. New bibasilar atelectasis. 2. There is some mild dilatation of the small bowel. There is a mild to moderate distention of the colon down to the rectum suggestive of a diffuse adynamic ileus. No definite mechanical obstruction is seen. 3. Otherwise, no other significant changes compared to the prior study. Andi Luna MD Brain MRI 06/15/16 0000 Signed Impressions: Service Date/Time: Wednesday, June 15, 2016 09:10 - CONCLUSION: No acute abnormality seen. 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 Reginaldo Cain MD Head Magnetic Resonance Angiography 06/14/16 0000 Signed Impressions: Service Date/Time: Tuesday, June 14, 2016 18:23 - CONCLUSION: No evidence of vessel truncation or aneurysm. Simone Graham MD Liver Ultrasound 06/13/16 0000 Signed Impressions: Service Date/Time: Monday, June 13, 2016 09:42 - CONCLUSION: 1. Small amount free fluid identified medial to the lower pole of the right kidney. 2. Slight increased hepatic echotexture suggesting some degree of fatty infiltration. 3. Please note the body and tail of the pancreas are obscured by overlying bowel gas. The head neck and uncinate process are sonographically intact. Mauro Leslie MD Head CT 06/12/16 1657 Signed Impressions: Service Date/Time: May 21:37 - CONCLUSION: Unremarkable study. Jose Martinez MD Renal Ultrasound 06/12/16 0000 Signed Impressions: Service Date/Time: May 23:51 - CONCLUSION: 1. Mild pelvocaliectasis on the right. No hydronephrosis involving either kidney. Simone Woody Jr., MD Chest CT 06/12/16 0000 Signed Impressions: Service Date/Time: May 21:39 - CONCLUSION: Right upper lobe parenchymal process may represent pneumonia, however follow up is suggested with repeat noncontrast chest CT in 2-4 weeksafter appropriate clinical therapy. Jose Martinez MD Physical Exam GENERAL: on Tpiece NAD SKIN: No jaundice, rashes, or lesions. Cool and dry HEYES: Pupils equal and round and reactive. No scleral icterus. No injection or drainage. ENT: Nose without bleeding or purulent drainage. NCARDIOVASCULAR: Regular rate and rhythm without murmurs, gallops, or rubs. No JVD. Peripheral pulses symmetric. RESPIRATORY/CHEST: Bclear to auscultation GASTROINTESTINAL: Abdomen soft, no reaction to palpation, not distended. No guarding. Bowel sounds present. Incontinent of liquid brown stool GENITOURINARY: Ayoub catheter in place with more clear yellow urine MUSCULOSKELETAL: Extremities without clubbing, cyanosis, no significant edema. NEUROLOGICAL: awake aleert , following commands, tracking LINE no evidence of infection Assessment & Plan Remarks PNA, Staph aureus, clinically resolved - CXR from negative Lymphocytic pleocytosis in CSF - C/S negative - VRDF negative, RPR neg - all clx are negative ARF/CKD, resolved Respiratory failure, on Tpiece, tolerating weaning Leukocytosis, worsening - derspite clin improvement Persistent intermittent fever and leukocytosis, likely 2/2 UTI UTI, complicated, ayoub associated, Enterobacter, Enterococcus - All S to cipro Abx associated diarrhea PLAN dc cefepime, vanco cipro PO will fu WBC ro C.diff dw Briseida Moore MD July 17, 2016 14:47
[2016-07-17] MEDS ORDERED: PHARMACY ORDERED LAB ONE (15:45)
[2016-07-17] MEDS: PREGABALIN 75 MG CAP PO SCH (20:03)
[2016-07-17] MEDS: CIPROFLOXACIN 500 MG TAB PO SCH (20:04)
[2016-07-18] VITALS (19 sets, daily range): BP systolic 111–156; BP diastolic 74–88; PULSE 90–108; RESP 16–29; TEMP 98.4–99; O2SAT 99–100
[2016-07-18] MEDS: CHLORHEXIDINE GLUCONATE 2 % 1 PACK (2 CLOTHS) TOP SCH (04:00)
[2016-07-18] MEDS: NYSTATIN 100,000 U/GM PWD 15 GM BTL TOPICAL SCH ×3 (05:45→21:36)
[2016-07-18] MEDS: METOPROLOL TARTRATE 50 MG TAB PO SCH ×4 (05:45→23:19)
[2016-07-18 07:21] LABS: AUTOMATED NEUTROPHIL # 9.3 TH/MM3 (1.8-7.7); BASOPHIL % 0.2 % (0.0-2.0); EOSINOPHIL # 0.1 TH/MM3 (0-0.4); EOSINOPHIL % 0.5 % (0.0-4.0); HEMATOCRIT 31.4 % (35.0-46.0); HEMO FLAGS DIFF FINAL; LYMPH % 12.3 % (9.0-44.0); LYMPHOCYTE # 1.4 TH/MM3 (1.0-4.8); MEAN CELL VOLUME 81.8 FL (80.0-100.0); MEAN CORPUSCULAR HEMOGLOBIN 27.3 PG (27.0-34.0); MEAN CORPUSCULAR HGB CONC 33.4 % (32.0-36.0); MONO % 5.2 % (0.0-8.0); NEUT % 81.8 % (16.0-70.0); PLATELET COUNT 276 TH/MM3 (150-450); RED BLOOD COUNT 3.84 MIL/MM3 (4.00-5.30); RED CELL DISTRIBUTION WIDTH 16.3 % (11.6-17.2); WHITE BLOOD COUNT 11.3 TH/MM3 (4.0-11.0)
[2016-07-18 07:51] LABS: BICARBONATE 28.2 MEQ/L (21.0-32.0)
--- NOTE | 2016-07-18 08:48 | HHI.CCPN ---
Subjective Remarks/Hospital Course 56-year-old female brought in by EMS emergently as altered mental status, hypoxia and temperature 104. Patient has a history of CVA many years ago. Per caregiver she didn't feel well since yesterday and wasn't taking any of medications including baclofen. Patient was unable to communicate due to her altered mental status. As per EMS not much history was available from the family but she has history of CVA as baseline but communicates. In the emergency department patient's oxygen saturation was low 70s upon EMS arrival. They had her on oxygen via nonrebreather and sats of 93%. GCS was 6 and she was intubated by ER attending for an airway protection. 06/13 Patient is sedated with Versed and on Bicarb drip. Renal function is improving with Cr: 2.12 from 3.19 UO: 1350ml since yesterday. Afebrile. 06/14 Patient remains sedated and intubated. Afebrile. Renal function continue to improve with Cr: 1.18 today from 1.53. 06/15 No acute events overnight. Off sedation remains intubated. Patient tolerated CPAP all day yesterday. MRA brain last night is unremarkable. T:99.9 06/16 Patient remains intubated off sedation. Afebrile. Tolerated CPAP all day yesterday remains encephalopathic. 06/17 No acute events overnight. Patient is able to open her eyes but does not follow commands. T: 100.1 last night. 06/18: Remains encephalopathic, orally intubated on mechanical ventilation. 06/19: Remains encephalopathic, orally intubated on mechanical ventilation. Daily C Pap trials ongoing. 06/20: Remains encephalopathic, orally intubated on mechanical ventilation. Daily C Pap trials. Tube feeds resumed. 06/21: More awake however not following commands. Remains orally intubated on mechanical ventilation. Tolerating tube feeds. Daily C Pap trials ongoing. 06/22: Encephalopathic though more awake, arousable. Not following commands. Remains orally intubated on mechanical ventilation. Tolerating tube feeds. Daily C Pap trials. 06/23: Awake, not following commands. Remains orally intubated on mechanical ventilation. Failing C Pap trials. Tolerating tube feeds. 06/24: Opening eyes, blinks on command. Remains orally intubated on mechanical ventilation. Tolerating tube feeds. Gets tachypneic with low volumes on dropping pressure-support at C Pap trials. We'll initiate diuresis as patient isn't significantly positive fluid balance since admission due to fluids administered for sepsis which now appears to be under control. 06/25: Awake, appears to focus. Extubated today following C Pap trial. Continue diuresis. 06/26: CCM reconsult note. Patient was extubated yesterday 06/25 and apparently was doing well initially. Overnight was placed on a 100% percent nonrebreather. I was called to the bedside emergently by Denny PATINO, today around 12.30 pm, patient was more unresponsive and hypoxemic on 100% nonrebreather. On my evaluation patient's eyes were open but nonresponsive, shallow breathing. Oxygen saturation 80% on 100 percent nonrebreather. Emergently intubated and placed on mechanical ventilation. Moderate amount of white secretions at glottic opening. CXR shows RLL infiltrate with volume loss? aspiration. Sputum cx. Discuss with ID Dr. Ortiz, will place on broad-spectrum antibiotics with Zosyn 06/27: Tmax 99.6 The patient was emergently reintubated yesterday, overnight no increasing ventilatory requirements were noted. The patient underwent a bronchoscopy with BAL this a.m., cultures were sent. Plan for PEG placement today. 06/28: Tmax 98.4 The patient underwent PEG placement yesterday, will resume tube feedings today. Mucomyst was initiated yesterday status post bronchial noted mucous plugs, with thick tenacious secretions. Will tentatively plan for tracheostomy next week, if unable to wean, and increasing ventilatory requirements. 06/29: She was noted to have a drop in hemoglobin last night, and received 2 units of packed red blood cells. Hemoccult has been ordered stat CBC to be followed up. No obvious signs of bleeding noted. 06/30: Hgb stable. No change in neuro status. will attempt CPAP trials. Palliative medicine, Dr. Venegas to schedule goals of care now with reintubation. 07/01: Remains encephalopathic. Hemoglobin stable at 10.0. No acute changes overnight. Discussion with palliative care team and , he would like aggressive measures/treatments to continue to include tracheostomy. General surgery has been consulted. 07/02: Afebrile. No acute changes overnight. Patient was evaluated by general surgery plans for tracheostomy in the next few days with coordination. 07/03: Afebrile. The patient was underwent percutaneous tracheostomy at bedside. Chest x-ray is pending. 07/04 No acute events overnight. s/p trach yesterday. Tolerating tube feeds. 07/05: Afebrile. The patient tolerated CPAP trials for 8 hours yesterday. She is on CPAP trials today. 07/06: The patient tolerated CPAP trials for 10 hours yesterday. Normotensive. The patient continues have heart rate low 100's. PRN beta samina utilized during the night. 07/07: The patient was placed back on the ventilator during the night last night for a"rest". The patient continues to perform a CPAP trial. The patient was noted to be slightly hypertensive, metoprolol increased to every 8 hours. LTAC placement planned. 07/08: Currently resting in bed in no acute distress. Afebrile. Tolerating tube feeds. Positive BM. 07/09: Resting in bed on PSV trial in no acute distress. Tmax 99.4. Tolerating tube feeds. Positive BM. Neurologically unchanged. 07/10: Continues on PSV trial distress. Tmax 100.1. Currently 99.5. Tolerating tube feeds. Positive BM. Eyes and mouth are open. 07/11: Currently afebrile. Tolerating tube feeds. Lasted 2 hours on T piece trial today. Currently on PSV trial 07/12: Attempting for hours and T piece today. Tmax 101.1. Currently 99.8. Moves head aware in room. Eyes and mouth are both open. Subjective 07/13: Tmax 100.1. T piece 4 hours yesterday +2 hours. Will attempt 8 hours today. Minimum secretions from tracheostomy site. Panculture today and pro- calcitonin ordered per infectious disease note 07/14 No events overnight. Afebrile. On CPAP with PS 10, PEEP:5 and FIO2 30%. Tolerating tube feeds. 07/15 Patient remains on ventilator via trach, afebrile, tachycardic. On CPAP overnight. 07/16 Patient is back on PRVC mode. On no drips. Afebrile. 07/17 No events overnight. On CPAP overnight with PS 15, PEEP:5 and FIO2 30%. T: 99.9 5/26 No events overnight. Patient was on PRVC overnight now on CPAP 11/27 with 35 % FIO2. Afebrile. WBC trending down. Objective Vital Signs Date Time Temp Pulse Resp B/P Pulse Ox O2 Delivery O2 Flow Rate FiO2 07/18/16 06:00 30 07/18/16 06:00 100 07/18/16 04:21 100 07/18/16 04:00 98.4 29 156/88 07/17/16 12:12 T-piece 6.00 Intake and Output 07/17/16 07/17/16 07/18/16 08:00 16:00 00:00 Intake Total 830 ml 566 ml 603 ml Output Total 240 ml 300 ml 350 ml Balance 590 ml 266 ml 253 ml Result Diagram: 07/18/1670107/18/16701 Other Results Laboratory Tests Test 07/18/16 07:02 White Blood Count 11.3 TH/MM3 Red Blood Count 3.84 MIL/MM3 Hemoglobin 10.5 GM/DL Hematocrit 31.4 % Mean Corpuscular Volume 81.8 FL Mean Corpuscular Hemoglobin 27.3 PG Mean Corpuscular Hemoglobin 33.4 % Concent Red Cell Distribution Width 16.3 % Platelet Count 276 TH/MM3 Mean Platelet Volume 9.5 FL Neutrophils (%) (Auto) 81.8 % Lymphocytes (%) (Auto) 12.3 % Monocytes (%) (Auto) 5.2 % Eosinophils (%) (Auto) 0.5 % Basophils (%) (Auto) 0.2 % Neutrophils # (Auto) 9.3 TH/MM3 Lymphocytes # (Auto) 1.4 TH/MM3 Monocytes # (Auto) 0.6 TH/MM3 Eosinophils # (Auto) 0.1 TH/MM3 Basophils # (Auto) 0.0 TH/MM3 CBC Comment DIFF FINAL Differential Comment Sodium Level 141 MEQ/L Potassium Level 4.0 MEQ/L Chloride Level 107 MEQ/L Carbon Dioxide Level 28.2 MEQ/L Anion Gap 6 MEQ/L Blood Urea Nitrogen 14 MG/DL Creatinine 0.33 MG/DL Estimat Glomerular Filtration 250 ML/MIN Rate Random Glucose 108 MG/DL Calcium Level 8.9 MG/DL Imaging Last Impressions Lower Extremity Ultrasound 07/14/16 0800 Signed Impressions: Service Date/Time: Thursday, July 14, 2016 10:47 - CONCLUSION: Negative exam with no evidence of deep venous thrombosis. Rico Pedraza MD Chest X-Ray 07/14/16 0600 Signed Impressions: Service Date/Time: Thursday, July 14, 2016 04:23 - CONCLUSION: No acute cardiopulmonary disease. Jose Martinez MD Abdomen X-Ray 06/26/16 0000 Signed Impressions: Service Date/Time: June 13:08 - CONCLUSION: 1. Nasogastric tube in good position. Benign-appearing bowel gas pattern. Jd Underwood MD Abdomen/Pelvis CT 06/17/16 0000 Signed Impressions: Service Date/Time: Friday, June 17, 2016 04:12 - CONCLUSION: 1. New bibasilar atelectasis. 2. There is some mild dilatation of the small bowel. There is a mild to moderate distention of the colon down to the rectum suggestive of a diffuse adynamic ileus. No definite mechanical obstruction is seen. 3. Otherwise, no other significant changes compared to the prior study. Andi Luna MD Brain MRI 06/15/16 0000 Signed Impressions: Service Date/Time: Wednesday, June 15, 2016 09:10 - CONCLUSION: No acute abnormality seen. 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 Reginaldo Cain MD Head Magnetic Resonance Angiography 06/14/16 0000 Signed Impressions: Service Date/Time: Tuesday, June 14, 2016 18:23 - CONCLUSION: No evidence of vessel truncation or aneurysm. Simone Graham MD Liver Ultrasound 06/13/16 0000 Signed Impressions: Service Date/Time: Monday, June 13, 2016 09:42 - CONCLUSION: 1. Small amount free fluid identified medial to the lower pole of the right kidney. 2. Slight increased hepatic echotexture suggesting some degree of fatty infiltration. 3. Please note the body and tail of the pancreas are obscured by overlying bowel gas. The head neck and uncinate process are sonographically intact. Mauro Leslie MD Head CT 06/12/16 1851 Signed Impressions: Service Date/Time: May 21:37 - CONCLUSION: Unremarkable study. Jose Martinez MD Renal Ultrasound 06/12/16 0000 Signed Impressions: Service Date/Time: May 23:51 - CONCLUSION: 1. Mild pelvocaliectasis on the right. No hydronephrosis involving either kidney. Simone Woody Jr., MD Chest CT 06/12/16 0000 Signed Impressions: Service Date/Time: May 21:39 - CONCLUSION: Right upper lobe parenchymal process may represent pneumonia, however follow up is suggested with repeat noncontrast chest CT in 2-4 weeksafter appropriate clinical therapy. Jose Martinez MD Objective Remarks GENERAL: 56-year-old female, eyes and mouth are open on ventilator via trach. SKIN: Warm and dry. No rash HEAD: Normocephalic. EYES: Pallor present, No scleral icterus. No injection or drainage. NECK: Supple, trachea midline. Orotracheally intubated CARDIOVASCULAR: Tachycardic, RR. S1, S2 no S4. Without murmurs, gallops, or rubs. RESPIRATORY: Transmitted upper airway sounds. Diminished breath sounds in bases.. No wheezing noted GASTROINTESTINAL: Abdomen soft, non-tender, nondistended. Noted PEG in situ MUSCULOSKELETAL: No deformities. Dorsalis pedis posterior be else's are bilaterally palpable no decubitus ulcer EXTREMITIES: No significant peripheral edema NEURO: Eyes are open, mouth is open. Positive gag with trach suctioning. Withdraws to pain. A/P Assessment and Plan Neuro: Encephalopathy Left basal ganglia/IC CVA On no sedation. Monitor neuro status and avoid any sedatives. CT brain: No acute findings. UDS+ +Benzos MRA brain 06/14- Unremarkable. MRI brain 06/14 revealed lacunar infarct left basal ganglia left posterior and internal capsule s/p LP showed clear CSF and 15 WBC. EEG: Bihemispheric slowing, small sharp waves b/l Neuro is following- Dr. Boggs, On Keppra 500mg by PEG Q12 Continue Lyrica 25 mg twice a day encircling 100 mg by mouth daily/home medications Continue baclofen 10 mg 3 times a day for muscle spasms Continue as needed fentanyl 50 mcg for pain management Pulm: Vent dependent respiratory failure Acute hypoxemic respiratory failure Probable aspiration/HCAP with R volume loss Continue with vent support keep sat >92% Bronchodilators every 6 hours and as needed, ICU vent bundle. s/p perc trach placed 5/11, 8.[address] Raad Leger toilet, [facility] care, Continue CPAP/TP's trials as cherie CXR 07/14- No acute disease. CV: Hypertension Monitor HR and BP keep MAP>65mmHg. On Lopressor 50 mg Q6 for HR/BP control Norvasc 5mg PO daily/home medication : Monitor renal function, I/O's, avoid nephrotoxins. Electrolytes replacement per protocol. Renal US: No hydronephrosis. Renal is following- Dr. Corral GI/liver: Gastroesophageal reflux disease On Pepcid 20 milligrams by PEG qhs, tube feeds with Glucerna 1.5@60ml/hr Monitor LFT's (resolved), US liver: Fatty liver. Elevated urinary copper - GI is following. CT abdomen/pelvis 06/17- findings suggestive of adynamic ileus. No mechanical obstruction. On Reglan 5mg Iv q8 PRN, 06/[address] Davis ID: Staph aureus pneumonia - Continue abx ( Cipro) per ID, monitor for signs of infections ( Fever, WBC) -Check C-diff PCR Pertinent cultures: 06/12 Urine cx: E.coli 06/12 BC: No growth 06/12 CSG: NGTD 06/15 urine: E coli, sputum: MSSA 06/26: Blood sputum negative and urine cultures Pseudomonas 06/27 -bronchoscopy no growth pro-calcitonin level 0.23 on 07/13, blood cultures, urine cxs from 07/13- NGTD Urine cx 07/14 GNR, Group D enterococcus Heme: Normocytic anemia Leukocytosis Monitor CBC, and coags. Hep plt ab negative. 06/28-Transfused 2 units of PRBCs Endo: SSI for glycemic control, TSH level: 2.5 GI Prophylaxis with Pepcid DVT prophylaxis with SCD's, Heparin SQ 07/14 Doppler US LE negative for DVT Palliative care Dr. Venegas, following to assist with deciding goals of therapy. Patient's wishes to continue full CODE STATUS at this time, and continued aggressive treatment/therapies. Case management pending LTAC placement Dispo: Level 3 Jose Smith MD July 18, 2016 08:48
[2016-07-18] MEDS: RESP: ALBUTEROL 2.5 MG/IPRATROPIUM 0.5 MG NEB (PRN) NEB (09:10)
[2016-07-18] MEDS: levETIRAcetam 500 MG/5 ML UDC NG SCH ×2 (09:25→21:36)
[2016-07-18] MEDS: PREGABALIN 75 MG CAP PO SCH ×2 (09:25→21:36)
[2016-07-18] MEDS: BACLOFEN 10 MG TAB PO SCH ×3 (09:25→19:24)
[2016-07-18] MEDS: HEPARIN SODIUM - SQ 10,000 UNITS/ML VIAL SQ SCH ×2 (09:25→21:36)
[2016-07-18] MEDS: CIPROFLOXACIN 500 MG TAB PO SCH ×2 (09:25→21:36)
[2016-07-18] MEDS: FAMOTIDINE 20 MG TAB NG SCH (09:25)
[2016-07-18] MEDS: amLODIPine BESYLATE 5 MG TAB PO SCH (09:25)
[2016-07-18] MEDS: SODIUM CHLORIDE 0.9% FLUSH 10 ML FLUSH IV FLUSH SCH ×2 (09:26→21:36)
[2016-07-18] MEDS: CHLORHEXIDINE 0.12% (ORAL KIT) 15 ML CUP MT SCH ×2 (09:26→21:36)
[2016-07-18 23:32] LABS: C. DIFF EPI 027 PRESUMPTIVE NEGATIVE (NEGATIVE); C. DIFF TOXIN PCR NEGATIVE (NEGATIVE)
[2016-07-19] VITALS (21 sets, daily range): BP systolic 116–148; BP diastolic 72–102; PULSE 86–103; RESP 16–24; TEMP 98.3–99.5; O2SAT 92–100
[2016-07-19] MEDS: CHLORHEXIDINE GLUCONATE 2 % 1 PACK (2 CLOTHS) TOP SCH (04:00)
[2016-07-19] MEDS: NYSTATIN 100,000 U/GM PWD 15 GM BTL TOPICAL SCH ×3 (05:56→21:05)
[2016-07-19] MEDS: METOPROLOL TARTRATE 50 MG TAB PO SCH ×4 (05:56→23:21)
--- NOTE | 2016-07-19 07:25 | HHI.CCPN ---
Subjective Remarks/Hospital Course 56-year-old female brought in by EMS emergently as altered mental status, hypoxia and temperature 104. Patient has a history of CVA many years ago. Per caregiver she didn't feel well since yesterday and wasn't taking any of medications including baclofen. Patient was unable to communicate due to her altered mental status. As per EMS not much history was available from the family but she has history of CVA as baseline but communicates. In the emergency department patient's oxygen saturation was low 70s upon EMS arrival. They had her on oxygen via nonrebreather and sats of 93%. GCS was 6 and she was intubated by ER attending for an airway protection. 06/13 Patient is sedated with Versed and on Bicarb drip. Renal function is improving with Cr: 2.12 from 3.19 UO: 1350ml since yesterday. Afebrile. 06/14 Patient remains sedated and intubated. Afebrile. Renal function continue to improve with Cr: 1.18 today from 1.53. 06/15 No acute events overnight. Off sedation remains intubated. Patient tolerated CPAP all day yesterday. MRA brain last night is unremarkable. T:99.9 06/16 Patient remains intubated off sedation. Afebrile. Tolerated CPAP all day yesterday remains encephalopathic. 06/17 No acute events overnight. Patient is able to open her eyes but does not follow commands. T: 100.1 last night. 06/18: Remains encephalopathic, orally intubated on mechanical ventilation. 06/19: Remains encephalopathic, orally intubated on mechanical ventilation. Daily C Pap trials ongoing. 06/20: Remains encephalopathic, orally intubated on mechanical ventilation. Daily C Pap trials. Tube feeds resumed. 06/21: More awake however not following commands. Remains orally intubated on mechanical ventilation. Tolerating tube feeds. Daily C Pap trials ongoing. 06/22: Encephalopathic though more awake, arousable. Not following commands. Remains orally intubated on mechanical ventilation. Tolerating tube feeds. Daily C Pap trials. 06/23: Awake, not following commands. Remains orally intubated on mechanical ventilation. Failing C Pap trials. Tolerating tube feeds. 06/24: Opening eyes, blinks on command. Remains orally intubated on mechanical ventilation. Tolerating tube feeds. Gets tachypneic with low volumes on dropping pressure-support at C Pap trials. We'll initiate diuresis as patient isn't significantly positive fluid balance since admission due to fluids administered for sepsis which now appears to be under control. 06/25: Awake, appears to focus. Extubated today following C Pap trial. Continue diuresis. 06/26: CCM reconsult note. Patient was extubated yesterday 06/25 and apparently was doing well initially. Overnight was placed on a 100% percent nonrebreather. I was called to the bedside emergently by Denny PATINO, today around 12.30 pm, patient was more unresponsive and hypoxemic on 100% nonrebreather. On my evaluation patient's eyes were open but nonresponsive, shallow breathing. Oxygen saturation 80% on 100 percent nonrebreather. Emergently intubated and placed on mechanical ventilation. Moderate amount of white secretions at glottic opening. CXR shows RLL infiltrate with volume loss? aspiration. Sputum cx. Discuss with ID Dr. Ortiz, will place on broad-spectrum antibiotics with Zosyn 06/27: Tmax 99.6 The patient was emergently reintubated yesterday, overnight no increasing ventilatory requirements were noted. The patient underwent a bronchoscopy with BAL this a.m., cultures were sent. Plan for PEG placement today. 06/28: Tmax 98.4 The patient underwent PEG placement yesterday, will resume tube feedings today. Mucomyst was initiated yesterday status post bronchial noted mucous plugs, with thick tenacious secretions. Will tentatively plan for tracheostomy next week, if unable to wean, and increasing ventilatory requirements. 06/29: She was noted to have a drop in hemoglobin last night, and received 2 units of packed red blood cells. Hemoccult has been ordered stat CBC to be followed up. No obvious signs of bleeding noted. 06/30: Hgb stable. No change in neuro status. will attempt CPAP trials. Palliative medicine, Dr. Vneegas to schedule goals of care now with reintubation. 07/01: Remains encephalopathic. Hemoglobin stable at 10.0. No acute changes overnight. Discussion with palliative care team and , he would like aggressive measures/treatments to continue to include tracheostomy. General surgery has been consulted. 07/02: Afebrile. No acute changes overnight. Patient was evaluated by general surgery plans for tracheostomy in the next few days with coordination. 07/03: Afebrile. The patient was underwent percutaneous tracheostomy at bedside. Chest x-ray is pending. 07/04 No acute events overnight. s/p trach yesterday. Tolerating tube feeds. 07/05: Afebrile. The patient tolerated CPAP trials for 8 hours yesterday. She is on CPAP trials today. 07/06: The patient tolerated CPAP trials for 10 hours yesterday. Normotensive. The patient continues have heart rate low 100's. PRN beta samina utilized during the night. 07/07: The patient was placed back on the ventilator during the night last night for a"rest". The patient continues to perform a CPAP trial. The patient was noted to be slightly hypertensive, metoprolol increased to every 8 hours. LTAC placement planned. 07/08: Currently resting in bed in no acute distress. Afebrile. Tolerating tube feeds. Positive BM. 07/09: Resting in bed on PSV trial in no acute distress. Tmax 99.4. Tolerating tube feeds. Positive BM. Neurologically unchanged. 07/10: Continues on PSV trial distress. Tmax 100.1. Currently 99.5. Tolerating tube feeds. Positive BM. Eyes and mouth are open. 07/11: Currently afebrile. Tolerating tube feeds. Lasted 2 hours on T piece trial today. Currently on PSV trial 07/12: Attempting for hours and T piece today. Tmax 101.1. Currently 99.8. Moves head aware in room. Eyes and mouth are both open. Subjective 07/13: Tmax 100.1. T piece 4 hours yesterday +2 hours. Will attempt 8 hours today. Minimum secretions from tracheostomy site. Panculture today and pro- calcitonin ordered per infectious disease note 07/14 No events overnight. Afebrile. On CPAP with PS 10, PEEP:5 and FIO2 30%. Tolerating tube feeds. 07/15 Patient remains on ventilator via trach, afebrile, tachycardic. On CPAP overnight. 07/16 Patient is back on PRVC mode. On no drips. Afebrile. 07/17 No events overnight. On CPAP overnight with PS 15, PEEP:5 and FIO2 30%. T: 99.9 07/18 No events overnight. Patient was on PRVC overnight now on CPAP 11/27 with 35 % FIO2. Afebrile. WBC trending down. 07/19 No events overnight. Afebrile. Tolerating tube feeds. Objective Vital Signs Date Time Temp Pulse Resp B/P Pulse Ox O2 Delivery O2 Flow Rate FiO2 07/19/16 06:00 103 07/19/16 04:38 100 30 07/19/16 04:00 98.3 16 148/89 07/17/16 12:12 T-piece 6.00 Intake and Output 07/18/16 07/18/16 07/19/16 08:00 16:00 00:00 Intake Total 473 ml 467 ml 623 ml Output Total 300 ml 400 ml 525 ml Balance 173 ml 67 ml 98 ml Result Diagram: 07/18/16 0702 07/18/16 0702 Other Results Laboratory Tests Test 07/18/16 19:15 Stool C. difficile Toxin (PCR) NEGATIVE Stl C. difficile Toxin PRESUMPTIVE Epiderm 027 NEGATIVE Imaging Last Impressions Lower Extremity Ultrasound 07/14/16 0800 Signed Impressions: Service Date/Time: Thursday, July 14, 2016 10:47 - CONCLUSION: Negative exam with no evidence of deep venous thrombosis. Rico Pedraza MD Chest X-Ray 07/14/16 0600 Signed Impressions: Service Date/Time: Thursday, July 14, 2016 04:23 - CONCLUSION: No acute cardiopulmonary disease. Jose Martinez MD Abdomen X-Ray 06/26/16 0000 Signed Impressions: Service Date/Time: June 13:08 - CONCLUSION: 1. Nasogastric tube in good position. Benign-appearing bowel gas pattern. Jd Underwood MD Abdomen/Pelvis CT 06/17/16 0000 Signed Impressions: Service Date/Time: Friday, June 17, 2016 04:12 - CONCLUSION: 1. New bibasilar atelectasis. 2. There is some mild dilatation of the small bowel. There is a mild to moderate distention of the colon down to the rectum suggestive of a diffuse adynamic ileus. No definite mechanical obstruction is seen. 3. Otherwise, no other significant changes compared to the prior study. Andi Luna MD Brain MRI 06/15/16 0000 Signed Impressions: Service Date/Time: Wednesday, June 15, 2016 09:10 - CONCLUSION: No acute abnormality seen. 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 Reginaldo Cain MD Head Magnetic Resonance Angiography 06/14/16 0000 Signed Impressions: Service Date/Time: Tuesday, June 14, 2016 18:23 - CONCLUSION: No evidence of vessel truncation or aneurysm. Simone Graham MD Liver Ultrasound 06/13/16 0000 Signed Impressions: Service Date/Time: Monday, June 13, 2016 09:42 - CONCLUSION: 1. Small amount free fluid identified medial to the lower pole of the right kidney. 2. Slight increased hepatic echotexture suggesting some degree of fatty infiltration. 3. Please note the body and tail of the pancreas are obscured by overlying bowel gas. The head neck and uncinate process are sonographically intact. Mauro Leslie MD Head CT 06/12/16 1657 Signed Impressions: Service Date/Time: May 21:37 - CONCLUSION: Unremarkable study. Jose Martinez MD Renal Ultrasound 06/12/16 0000 Signed Impressions: Service Date/Time: May 23:51 - CONCLUSION: 1. Mild pelvocaliectasis on the right. No hydronephrosis involving either kidney. Simone Woody Jr., MD Chest CT 06/12/16 0000 Signed Impressions: Service Date/Time: May 21:39 - CONCLUSION: Right upper lobe parenchymal process may represent pneumonia, however follow up is suggested with repeat noncontrast chest CT in 2-4 weeksafter appropriate clinical therapy. Jose Martinez MD Objective Remarks GENERAL: 56-year-old female, eyes and mouth are open on ventilator via trach. SKIN: Warm and dry. No rash HEAD: Normocephalic. EYES: Pallor present, No scleral icterus. No injection or drainage. NECK: Supple, trachea midline. Orotracheally intubated CARDIOVASCULAR: Tachycardic, RR. S1, S2 no S4. Without murmurs, gallops, or rubs. RESPIRATORY: Transmitted upper airway sounds. Diminished breath sounds in bases.. No wheezing noted GASTROINTESTINAL: Abdomen soft, non-tender, nondistended. Noted PEG in situ MUSCULOSKELETAL: No deformities. Dorsalis pedis posterior be else's are bilaterally palpable no decubitus ulcer EXTREMITIES: No significant peripheral edema NEURO: Eyes are open, mouth is open. Positive gag with trach suctioning. Withdraws to pain. A/P Assessment and Plan Neuro: Encephalopathy Left basal ganglia/IC CVA On no sedation. Monitor neuro status and avoid any sedatives. CT brain: No acute findings. UDS+ +Benzos MRA brain 06/14- Unremarkable. MRI brain 06/14 revealed lacunar infarct left basal ganglia left posterior and internal capsule s/p LP showed clear CSF and 15 WBC. EEG: Bihemispheric slowing, small sharp waves b/l Neuro is following- Dr. Boggs, On Keppra 500mg by PEG Q12 Continue Lyrica 25 mg twice a day encircling 100 mg by mouth daily/home medications Continue baclofen 10 mg 3 times a day for muscle spasms Continue as needed fentanyl 50 mcg for pain management Pulm: Vent dependent respiratory failure Acute hypoxemic respiratory failure Probable aspiration/HCAP with R volume loss Continue with vent support keep sat >92% Bronchodilators every 6 hours and as needed, ICU vent bundle. s/p perc trach placed 07/03, 8.[address] Shankar Pulm toilet, trach care, Continue CPAP/TP's trials as cherie CXR 07/14- No acute disease. CV: Hypertension Monitor HR and BP keep MAP>65mmHg. On Lopressor 50 mg Q6 for HR/BP control Norvasc 5mg PO daily/home medication : Monitor renal function, I/O's, avoid nephrotoxins. Electrolytes replacement per protocol. Renal US: No hydronephrosis. Renal is following- Dr. Corral GI/liver: Gastroesophageal reflux disease On Pepcid 20 milligrams by PEG qhs, tube feeds with Glucerna 1.5@60ml/hr Monitor LFT's (resolved), US liver: Fatty liver. Elevated urinary copper - GI is following. CT abdomen/pelvis 06/17- findings suggestive of adynamic ileus. No mechanical obstruction. On Reglan 5mg Iv q8 PRN, 06/[address] Davis ID: Staph aureus pneumonia - Continue abx ( Cipro) per ID, monitor for signs of infections ( Fever, WBC) --Ciff PCR negative on 07/18 Pertinent cultures: 06/12 Urine cx: E.coli 06/12 BC: No growth 06/12 CSG: NGTD 06/15 urine: E coli, sputum: MSSA 06/26: Blood sputum negative and urine cultures Pseudomonas 06/27 -bronchoscopy no growth pro-calcitonin level 0.23 on 07/13, blood cultures, urine cxs from 07/13- NGTD Urine cx 07/14 Enterobacter, Group D enterococcus Heme: Normocytic anemia Leukocytosis Monitor CBC, and coags. Hep plt ab negative. 06/28-Transfused 2 units of PRBCs Endo: SSI for glycemic control, TSH level: 2.5 GI Prophylaxis with Pepcid DVT prophylaxis with SCD's, Heparin SQ 07/14 Doppler US LE negative for DVT Palliative care Dr. Venegas, following to assist with deciding goals of therapy. Patient's wishes to continue full CODE STATUS at this time, and continued aggressive treatment/therapies. Case management pending LTAC placement Follow up on labs Dispo: Level 3 Jose Smith MD July 19, 2016 07:25
[2016-07-19 07:46] LABS: AUTOMATED NEUTROPHIL # 12.7 TH/MM3 (1.8-7.7); BASOPHIL % 0.2 % (0.0-2.0); EOSINOPHIL # 0.1 TH/MM3 (0-0.4); EOSINOPHIL % 0.6 % (0.0-4.0); HEMATOCRIT 33.1 % (35.0-46.0); HEMO FLAGS DIFF FINAL; LYMPH % 11.1 % (9.0-44.0); LYMPHOCYTE # 1.7 TH/MM3 (1.0-4.8); MEAN CELL VOLUME 82.4 FL (80.0-100.0); MEAN CORPUSCULAR HEMOGLOBIN 26.4 PG (27.0-34.0); MONO % 3.4 % (0.0-8.0); NEUT % 84.7 % (16.0-70.0); PLATELET COUNT 289 TH/MM3 (150-450); RED BLOOD COUNT 4.02 MIL/MM3 (4.00-5.30); RED CELL DISTRIBUTION WIDTH 16.4 % (11.6-17.2)
[2016-07-19 08:04] LABS: BICARBONATE 29.4 MEQ/L (21.0-32.0); POTASSIUM 4.3 MEQ/L (3.5-5.1)
[2016-07-19] MEDS: SODIUM CHLORIDE 0.9% FLUSH 10 ML FLUSH IV FLUSH SCH ×2 (08:18→21:05)
[2016-07-19] MEDS: PREGABALIN 75 MG CAP PO SCH ×2 (08:18→21:05)
[2016-07-19] MEDS: levETIRAcetam 500 MG/5 ML UDC NG SCH ×2 (08:18→21:05)
[2016-07-19] MEDS: CHLORHEXIDINE 0.12% (ORAL KIT) 15 ML CUP MT SCH ×2 (08:18→21:04)
[2016-07-19] MEDS: BACLOFEN 10 MG TAB PO SCH ×3 (08:19→18:42)
[2016-07-19] MEDS: HEPARIN SODIUM - SQ 10,000 UNITS/ML VIAL SQ SCH ×2 (08:19→21:05)
[2016-07-19] MEDS: CIPROFLOXACIN 500 MG TAB PO SCH ×2 (08:19→21:05)
[2016-07-19] MEDS: amLODIPine BESYLATE 5 MG TAB PO SCH (08:19)
[2016-07-19] MEDS: FAMOTIDINE 20 MG TAB NG SCH (08:19)
[2016-07-20] VITALS (26 sets, daily range): BP systolic 109–142; BP diastolic 63–88; PULSE 86–110; RESP 9–30; TEMP 98.1–99.4; O2SAT 96–100
[2016-07-20] MEDS: CHLORHEXIDINE GLUCONATE 2 % 1 PACK (2 CLOTHS) TOP SCH (04:00)
[2016-07-20] MEDS: NYSTATIN 100,000 U/GM PWD 15 GM BTL TOPICAL SCH ×3 (06:01→22:20)
[2016-07-20] MEDS: METOPROLOL TARTRATE 50 MG TAB PO SCH ×4 (06:01→23:56)
--- NOTE | 2016-07-20 08:56 | HHI.CCPN ---
Subjective Remarks/Hospital Course 56-year-old female brought in by EMS emergently as altered mental status, hypoxia and temperature 104. Patient has a history of CVA many years ago. Per caregiver she didn't feel well since yesterday and wasn't taking any of medications including baclofen. Patient was unable to communicate due to her altered mental status. As per EMS not much history was available from the family but she has history of CVA as baseline but communicates. In the emergency department patient's oxygen saturation was low 70s upon EMS arrival. They had her on oxygen via nonrebreather and sats of 93%. GCS was 6 and she was intubated by ER attending for an airway protection. 06/13 Patient is sedated with Versed and on Bicarb drip. Renal function is improving with Cr: 2.12 from 3.19 UO: 1350ml since yesterday. Afebrile. 06/14 Patient remains sedated and intubated. Afebrile. Renal function continue to improve with Cr: 1.18 today from 1.53. 06/15 No acute events overnight. Off sedation remains intubated. Patient tolerated CPAP all day yesterday. MRA brain last night is unremarkable. T:99.9 06/16 Patient remains intubated off sedation. Afebrile. Tolerated CPAP all day yesterday remains encephalopathic. 06/17 No acute events overnight. Patient is able to open her eyes but does not follow commands. T: 100.1 last night. 06/18: Remains encephalopathic, orally intubated on mechanical ventilation. 06/19: Remains encephalopathic, orally intubated on mechanical ventilation. Daily C Pap trials ongoing. 06/20: Remains encephalopathic, orally intubated on mechanical ventilation. Daily C Pap trials. Tube feeds resumed. 06/21: More awake however not following commands. Remains orally intubated on mechanical ventilation. Tolerating tube feeds. Daily C Pap trials ongoing. 06/22: Encephalopathic though more awake, arousable. Not following commands. Remains orally intubated on mechanical ventilation. Tolerating tube feeds. Daily C Pap trials. 06/23: Awake, not following commands. Remains orally intubated on mechanical ventilation. Failing C Pap trials. Tolerating tube feeds. 06/24: Opening eyes, blinks on command. Remains orally intubated on mechanical ventilation. Tolerating tube feeds. Gets tachypneic with low volumes on dropping pressure-support at C Pap trials. We'll initiate diuresis as patient isn't significantly positive fluid balance since admission due to fluids administered for sepsis which now appears to be under control. 06/25: Awake, appears to focus. Extubated today following C Pap trial. Continue diuresis. 06/26: CCM reconsult note. Patient was extubated yesterday 06/25 and apparently was doing well initially. Overnight was placed on a 100% percent nonrebreather. I was called to the bedside emergently by Denny PATINO, today around 12.30 pm, patient was more unresponsive and hypoxemic on 100% nonrebreather. On my evaluation patient's eyes were open but nonresponsive, shallow breathing. Oxygen saturation 80% on 100 percent nonrebreather. Emergently intubated and placed on mechanical ventilation. Moderate amount of white secretions at glottic opening. CXR shows RLL infiltrate with volume loss? aspiration. Sputum cx. Discuss with ID Dr. Ortiz, will place on broad-spectrum antibiotics with Zosyn 06/27: Tmax 99.6 The patient was emergently reintubated yesterday, overnight no increasing ventilatory requirements were noted. The patient underwent a bronchoscopy with BAL this a.m., cultures were sent. Plan for PEG placement today. 06/28: Tmax 98.4 The patient underwent PEG placement yesterday, will resume tube feedings today. Mucomyst was initiated yesterday status post bronchial noted mucous plugs, with thick tenacious secretions. Will tentatively plan for tracheostomy next week, if unable to wean, and increasing ventilatory requirements. 06/29: She was noted to have a drop in hemoglobin last night, and received 2 units of packed red blood cells. Hemoccult has been ordered stat CBC to be followed up. No obvious signs of bleeding noted. 06/30: Hgb stable. No change in neuro status. will attempt CPAP trials. Palliative medicine, Dr. Venegas to schedule goals of care now with reintubation. 07/01: Remains encephalopathic. Hemoglobin stable at 10.0. No acute changes overnight. Discussion with palliative care team and , he would like aggressive measures/treatments to continue to include tracheostomy. General surgery has been consulted. 07/02: Afebrile. No acute changes overnight. Patient was evaluated by general surgery plans for tracheostomy in the next few days with coordination. 07/03: Afebrile. The patient was underwent percutaneous tracheostomy at bedside. Chest x-ray is pending. 07/04 No acute events overnight. s/p trach yesterday. Tolerating tube feeds. 07/05: Afebrile. The patient tolerated CPAP trials for 8 hours yesterday. She is on CPAP trials today. 07/06: The patient tolerated CPAP trials for 10 hours yesterday. Normotensive. The patient continues have heart rate low 100's. PRN beta samina utilized during the night. 07/07: The patient was placed back on the ventilator during the night last night for a"rest". The patient continues to perform a CPAP trial. The patient was noted to be slightly hypertensive, metoprolol increased to every 8 hours. LTAC placement planned. 07/08: Currently resting in bed in no acute distress. Afebrile. Tolerating tube feeds. Positive BM. 07/09: Resting in bed on PSV trial in no acute distress. Tmax 99.4. Tolerating tube feeds. Positive BM. Neurologically unchanged. 07/10: Continues on PSV trial distress. Tmax 100.1. Currently 99.5. Tolerating tube feeds. Positive BM. Eyes and mouth are open. 07/11: Currently afebrile. Tolerating tube feeds. Lasted 2 hours on T piece trial today. Currently on PSV trial 07/12: Attempting for hours and T piece today. Tmax 101.1. Currently 99.8. Moves head aware in room. Eyes and mouth are both open. Subjective 07/13: Tmax 100.1. T piece 4 hours yesterday +2 hours. Will attempt 8 hours today. Minimum secretions from tracheostomy site. Panculture today and pro- calcitonin ordered per infectious disease note 07/14 No events overnight. Afebrile. On CPAP with PS 10, PEEP:5 and FIO2 30%. Tolerating tube feeds. 07/15 Patient remains on ventilator via trach, afebrile, tachycardic. On CPAP overnight. 07/16 Patient is back on PRVC mode. On no drips. Afebrile. 07/17 No events overnight. On CPAP overnight with PS 15, PEEP:5 and FIO2 30%. T: 99.9 5/26 No events overnight. Patient was on PRVC overnight now on CPAP 11/27 with 35 % FIO2. Afebrile. WBC trending down. 07/19 No events overnight. Afebrile. Tolerating tube feeds. 07/20 No events overnight. Tolerated CPAP all day yesterday and placed on PRVC mode overnight. Afebrile. Objective Vital Signs Date Time Temp Pulse Resp B/P Pulse Ox O2 Delivery O2 Flow Rate FiO2 07/20/16 06:00 110 07/20/16 05:02 100 30 07/20/16 04:00 98.1 16 140/88 07/17/16 12:12 T-piece 6.00 Intake and Output 07/19/16 07/19/16 07/20/16 08:00 16:00 00:00 Intake Total 511 ml 635 ml 547 ml Output Total 350 ml 625 ml 640 ml Balance 161 ml 10 ml -93 ml Result Diagram: 07/19/16 0706 07/19/16 0706 Imaging Last Impressions Lower Extremity Ultrasound 07/14/16 0800 Signed Impressions: Service Date/Time: Thursday, July 14, 2016 10:47 - CONCLUSION: Negative exam with no evidence of deep venous thrombosis. Rico Pedraza MD Chest X-Ray 07/14/16 0600 Signed Impressions: Service Date/Time: Thursday, July 14, 2016 04:23 - CONCLUSION: No acute cardiopulmonary disease. Jose Martinez MD Abdomen X-Ray 06/26/16 0000 Signed Impressions: Service Date/Time: June 13:08 - CONCLUSION: 1. Nasogastric tube in good position. Benign-appearing bowel gas pattern. Jd Underwood MD Abdomen/Pelvis CT 06/17/16 0000 Signed Impressions: Service Date/Time: Friday, June 17, 2016 04:12 - CONCLUSION: 1. New bibasilar atelectasis. 2. There is some mild dilatation of the small bowel. There is a mild to moderate distention of the colon down to the rectum suggestive of a diffuse adynamic ileus. No definite mechanical obstruction is seen. 3. Otherwise, no other significant changes compared to the prior study. Andi Luna MD Brain MRI 06/15/16 0000 Signed Impressions: Service Date/Time: Wednesday, June 15, 2016 09:10 - CONCLUSION: No acute abnormality seen. 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 Reginaldo Cain MD Head Magnetic Resonance Angiography 06/14/16 0000 Signed Impressions: Service Date/Time: Tuesday, June 14, 2016 18:23 - CONCLUSION: No evidence of vessel truncation or aneurysm. Simone Graham MD Liver Ultrasound 06/13/16 0000 Signed Impressions: Service Date/Time: Monday, June 13, 2016 09:42 - CONCLUSION: 1. Small amount free fluid identified medial to the lower pole of the right kidney. 2. Slight increased hepatic echotexture suggesting some degree of fatty infiltration. 3. Please note the body and tail of the pancreas are obscured by overlying bowel gas. The head neck and uncinate process are sonographically intact. Mauro Leslie MD Head CT 06/12/16 1657 Signed Impressions: Service Date/Time: May 21:37 - CONCLUSION: Unremarkable study. Jose Martinez MD Renal Ultrasound 06/12/16 0000 Signed Impressions: Service Date/Time: May 23:51 - CONCLUSION: 1. Mild pelvocaliectasis on the right. No hydronephrosis involving either kidney. Simone Woody Jr., MD Chest CT 06/12/16 0000 Signed Impressions: Service Date/Time: May 21:39 - CONCLUSION: Right upper lobe parenchymal process may represent pneumonia, however follow up is suggested with repeat noncontrast chest CT in 2-4 weeksafter appropriate clinical therapy. Jose Martinez MD Objective Remarks GENERAL: 56-year-old female, eyes and mouth are open on ventilator via trach. SKIN: Warm and dry. No rash HEAD: Normocephalic. EYES: Pallor present, No scleral icterus. No injection or drainage. NECK: Supple, trachea midline. Orotracheally intubated CARDIOVASCULAR: Tachycardic, RR. S1, S2 no S4. Without murmurs, gallops, or rubs. RESPIRATORY: Transmitted upper airway sounds. Diminished breath sounds in bases.. No wheezing noted GASTROINTESTINAL: Abdomen soft, non-tender, nondistended. Noted PEG in situ MUSCULOSKELETAL: No deformities. Dorsalis pedis posterior be else's are bilaterally palpable no decubitus ulcer EXTREMITIES: No significant peripheral edema NEURO: Eyes are open, mouth is open. Positive gag with trach suctioning. Withdraws to pain. A/P Assessment and Plan Neuro: Encephalopathy Left basal ganglia/IC CVA On no sedation. Monitor neuro status and avoid any sedatives. CT brain: No acute findings. UDS+ +Benzos MRA brain 06/14- Unremarkable. MRI brain 06/14 revealed lacunar infarct left basal ganglia left posterior and internal capsule s/p LP showed clear CSF and 15 WBC. EEG: Bihemispheric slowing, small sharp waves b/l Neuro is following- Dr. Boggs, On Keppra 500mg by PEG Q12 Continue Lyrica 25 mg twice a day encircling 100 mg by mouth daily/home medications Continue baclofen 10 mg 3 times a day for muscle spasms Continue as needed fentanyl 50 mcg for pain management Pulm: Vent dependent respiratory failure Acute hypoxemic respiratory failure Probable aspiration/HCAP with R volume loss Continue with vent support keep sat >92% Bronchodilators every 6 hours and as needed, ICU vent bundle. s/p perc trach placed 07/03, 8.[address] Shankar Pulm toilet, trach care, Continue CPAP/TP's trials as cherie CXR 07/14- No acute disease. CV: Hypertension Monitor HR and BP keep MAP>65mmHg. On Lopressor 50 mg Q6 for HR/BP control Norvasc 5mg PO daily/home medication : Monitor renal function, I/O's, avoid nephrotoxins. Electrolytes replacement per protocol. Renal US: No hydronephrosis. Renal is following- Dr. Corral GI/liver: Gastroesophageal reflux disease On Pepcid 20 milligrams by PEG qhs, tube feeds with Glucerna 1.5@60ml/hr Monitor LFT's (resolved), US liver: Fatty liver. Elevated urinary copper - GI is following. CT abdomen/pelvis 06/17- findings suggestive of adynamic ileus. No mechanical obstruction. On Reglan 5mg Iv q8 PRN, 06/[address] Davis ID: Staph aureus pneumonia - Continue abx ( Cipro) per ID, monitor for signs of infections ( Fever, WBC) --Ciff PCR negative on 07/18 Pertinent cultures: 06/12 Urine cx: E.coli 06/12 BC: No growth 06/12 CSG: NGTD 06/15 urine: E coli, sputum: MSSA 06/26: Blood sputum negative and urine cultures Pseudomonas 06/27 -bronchoscopy no growth pro-calcitonin level 0.23 on 07/13, blood cultures, urine cxs from 07/13- NGTD Urine cx 07/14 Enterobacter, Group D enterococcus Heme: Normocytic anemia Leukocytosis Monitor CBC, and coags. Hep plt ab negative. 06/28-Transfused 2 units of PRBCs Endo: SSI for glycemic control, TSH level: 2.5 GI Prophylaxis with Pepcid DVT prophylaxis with SCD's, Heparin SQ 07/14 Doppler US LE negative for DVT Palliative care Dr. Venegas, following to assist with deciding goals of therapy. Patient's wishes to continue full CODE STATUS at this time, and continued aggressive treatment/therapies. Case management for LTAC placement Follow up on labs Dispo: Level 2 Jose Smith MD July 20, 2016 08:56
[2016-07-20 09:04] LABS: BASOPHIL # 0.1 TH/MM3 (0-0.2); BASOPHIL % 0.4 % (0.0-2.0); EOSINOPHIL # 0.1 TH/MM3 (0-0.4); EOSINOPHIL % 0.5 % (0.0-4.0); HEMATOCRIT 32.7 % (35.0-46.0); LYMPH % 12.4 % (9.0-44.0); LYMPHOCYTE # 1.7 TH/MM3 (1.0-4.8); MEAN CELL VOLUME 82.6 FL (80.0-100.0); MEAN CORPUSCULAR HEMOGLOBIN 27.2 PG (27.0-34.0); MEAN CORPUSCULAR HGB CONC 32.9 % (32.0-36.0); MONO % 4.8 % (0.0-8.0); NEUT % 81.9 % (16.0-70.0); PLATELET COUNT 311 TH/MM3 (150-450); RED BLOOD COUNT 3.96 MIL/MM3 (4.00-5.30); RED CELL DISTRIBUTION WIDTH 16.4 % (11.6-17.2); WHITE BLOOD COUNT 13.4 TH/MM3 (4.0-11.0)
[2016-07-20] MEDS: CHLORHEXIDINE 0.12% (ORAL KIT) 15 ML CUP MT SCH ×2 (09:12→22:17)
[2016-07-20] MEDS: BACLOFEN 10 MG TAB PO SCH ×3 (09:13→18:09)
[2016-07-20] MEDS: FAMOTIDINE 20 MG TAB NG SCH (09:13)
[2016-07-20] MEDS: HEPARIN SODIUM - SQ 10,000 UNITS/ML VIAL SQ SCH ×2 (09:13→22:19)
[2016-07-20] MEDS: SODIUM CHLORIDE 0.9% FLUSH 10 ML FLUSH IV FLUSH SCH ×2 (09:13→22:19)
[2016-07-20] MEDS: PREGABALIN 75 MG CAP PO SCH ×2 (09:13→22:18)
[2016-07-20] MEDS: levETIRAcetam 500 MG/5 ML UDC NG SCH ×2 (09:13→22:18)
[2016-07-20] MEDS: CIPROFLOXACIN 500 MG TAB PO SCH ×2 (09:13→22:19)
[2016-07-20] MEDS: amLODIPine BESYLATE 5 MG TAB PO SCH (09:13)
[2016-07-20 09:15] LABS: HEMO FLAGS AUTO DIFF
[2016-07-20 09:40] LABS: BICARBONATE 28.4 MEQ/L (21.0-32.0); POTASSIUM 4.3 MEQ/L (3.5-5.1)
[2016-07-20 10:30] LABS: BANDS 1 % (0-6); NEUTROPHIL # MANUAL DIFF 10.6 TH/MM3 (1.8-7.7); POLYS (SEG NEUTROPHILS) 78 % (16-70); WBC DIFF SAMPLE 100
[2016-07-20 10:31] LABS: PLATELET ESTIMATE SMEAR NORMAL (NORMAL); PLATELET MORPHOLOGY NORMAL (NORMAL); SCAN/DIFF FINAL DIFF MANUAL
[2016-07-21] VITALS (22 sets, daily range): BP systolic 117–134; BP diastolic 68–81; PULSE 87–111; RESP 19–28; TEMP 98.4–98.9; O2SAT 99–100
[2016-07-21] MEDS: CHLORHEXIDINE GLUCONATE 2 % 1 PACK (2 CLOTHS) TOP SCH (03:51)
[2016-07-21 06:10] LABS: AUTOMATED NEUTROPHIL # 9.7 TH/MM3 (1.8-7.7); BASOPHIL % 0.3 % (0.0-2.0); EOSINOPHIL # 0.1 TH/MM3 (0-0.4); EOSINOPHIL % 0.7 % (0.0-4.0); HEMATOCRIT 34.5 % (35.0-46.0); HEMO FLAGS DIFF FINAL; LYMPH % 20.6 % (9.0-44.0); LYMPHOCYTE # 2.7 TH/MM3 (1.0-4.8); MEAN CELL VOLUME 82.4 FL (80.0-100.0); MEAN CORPUSCULAR HEMOGLOBIN 26.7 PG (27.0-34.0); MEAN CORPUSCULAR HGB CONC 32.4 % (32.0-36.0); MONO % 5.2 % (0.0-8.0); NEUT % 73.2 % (16.0-70.0); PLATELET COUNT 313 TH/MM3 (150-450); RED BLOOD COUNT 4.19 MIL/MM3 (4.00-5.30); RED CELL DISTRIBUTION WIDTH 16.1 % (11.6-17.2); WHITE BLOOD COUNT 13.3 TH/MM3 (4.0-11.0)
[2016-07-21] MEDS: METOPROLOL TARTRATE 50 MG TAB PO SCH ×4 (06:20→23:13)
[2016-07-21] MEDS: NYSTATIN 100,000 U/GM PWD 15 GM BTL TOPICAL SCH ×3 (06:21→22:00)
[2016-07-21 06:40] LABS: BICARBONATE 28.3 MEQ/L (21.0-32.0); POTASSIUM 4.2 MEQ/L (3.5-5.1)
[2016-07-21] MEDS: FAMOTIDINE 20 MG TAB NG SCH (07:55)
[2016-07-21] MEDS: PREGABALIN 75 MG CAP PO SCH ×2 (07:55→20:24)
[2016-07-21] MEDS: CIPROFLOXACIN 500 MG TAB PO SCH ×2 (07:56→20:24)
[2016-07-21] MEDS: levETIRAcetam 500 MG/5 ML UDC NG SCH ×2 (07:56→20:24)
[2016-07-21] MEDS: BACLOFEN 10 MG TAB PO SCH ×3 (07:56→17:56)
[2016-07-21] MEDS: amLODIPine BESYLATE 5 MG TAB PO SCH (07:56)
[2016-07-21] MEDS: CHLORHEXIDINE 0.12% (ORAL KIT) 15 ML CUP MT SCH ×2 (07:57→20:24)
[2016-07-21] MEDS: SODIUM CHLORIDE 0.9% FLUSH 10 ML FLUSH IV FLUSH SCH ×2 (07:57→20:23)
[2016-07-21] MEDS: HEPARIN SODIUM - SQ 10,000 UNITS/ML VIAL SQ SCH ×2 (07:57→20:24)
--- NOTE | 2016-07-21 10:23 | HHI.CCPN ---
Subjective Remarks/Hospital Course 56-year-old female brought in by EMS emergently as altered mental status, hypoxia and temperature 104. Patient has a history of CVA many years ago. Per caregiver she didn't feel well since yesterday and wasn't taking any of medications including baclofen. Patient was unable to communicate due to her altered mental status. As per EMS not much history was available from the family but she has history of CVA as baseline but communicates. In the emergency department patient's oxygen saturation was low 70s upon EMS arrival. They had her on oxygen via nonrebreather and sats of 93%. GCS was 6 and she was intubated by ER attending for an airway protection. 06/13 Patient is sedated with Versed and on Bicarb drip. Renal function is improving with Cr: 2.12 from 3.19 UO: 1350ml since yesterday. Afebrile. 06/14 Patient remains sedated and intubated. Afebrile. Renal function continue to improve with Cr: 1.18 today from 1.53. 06/15 No acute events overnight. Off sedation remains intubated. Patient tolerated CPAP all day yesterday. MRA brain last night is unremarkable. T:99.9 06/16 Patient remains intubated off sedation. Afebrile. Tolerated CPAP all day yesterday remains encephalopathic. 06/17 No acute events overnight. Patient is able to open her eyes but does not follow commands. T: 100.1 last night. 06/18: Remains encephalopathic, orally intubated on mechanical ventilation. 06/19: Remains encephalopathic, orally intubated on mechanical ventilation. Daily C Pap trials ongoing. 06/20: Remains encephalopathic, orally intubated on mechanical ventilation. Daily C Pap trials. Tube feeds resumed. 06/21: More awake however not following commands. Remains orally intubated on mechanical ventilation. Tolerating tube feeds. Daily C Pap trials ongoing. 06/22: Encephalopathic though more awake, arousable. Not following commands. Remains orally intubated on mechanical ventilation. Tolerating tube feeds. Daily C Pap trials. 06/23: Awake, not following commands. Remains orally intubated on mechanical ventilation. Failing C Pap trials. Tolerating tube feeds. 06/24: Opening eyes, blinks on command. Remains orally intubated on mechanical ventilation. Tolerating tube feeds. Gets tachypneic with low volumes on dropping pressure-support at C Pap trials. We'll initiate diuresis as patient isn't significantly positive fluid balance since admission due to fluids administered for sepsis which now appears to be under control. 06/25: Awake, appears to focus. Extubated today following C Pap trial. Continue diuresis. 06/26: CCM reconsult note. Patient was extubated yesterday 06/25 and apparently was doing well initially. Overnight was placed on a 100% percent nonrebreather. I was called to the bedside emergently by Denny PATINO, today around 12.30 pm, patient was more unresponsive and hypoxemic on 100% nonrebreather. On my evaluation patient's eyes were open but nonresponsive, shallow breathing. Oxygen saturation 80% on 100 percent nonrebreather. Emergently intubated and placed on mechanical ventilation. Moderate amount of white secretions at glottic opening. CXR shows RLL infiltrate with volume loss? aspiration. Sputum cx. Discuss with ID Dr. Ortiz, will place on broad-spectrum antibiotics with Zosyn 06/27: Tmax 99.6 The patient was emergently reintubated yesterday, overnight no increasing ventilatory requirements were noted. The patient underwent a bronchoscopy with BAL this a.m., cultures were sent. Plan for PEG placement today. 06/28: Tmax 98.4 The patient underwent PEG placement yesterday, will resume tube feedings today. Mucomyst was initiated yesterday status post bronchial noted mucous plugs, with thick tenacious secretions. Will tentatively plan for tracheostomy next week, if unable to wean, and increasing ventilatory requirements. 06/29: She was noted to have a drop in hemoglobin last night, and received 2 units of packed red blood cells. Hemoccult has been ordered stat CBC to be followed up. No obvious signs of bleeding noted. 06/30: Hgb stable. No change in neuro status. will attempt CPAP trials. Palliative medicine, Dr. Venegas to schedule goals of care now with reintubation. 07/01: Remains encephalopathic. Hemoglobin stable at 10.0. No acute changes overnight. Discussion with palliative care team and , he would like aggressive measures/treatments to continue to include tracheostomy. General surgery has been consulted. 07/02: Afebrile. No acute changes overnight. Patient was evaluated by general surgery plans for tracheostomy in the next few days with coordination. 07/03: Afebrile. The patient was underwent percutaneous tracheostomy at bedside. Chest x-ray is pending. 07/04 No acute events overnight. s/p trach yesterday. Tolerating tube feeds. 07/05: Afebrile. The patient tolerated CPAP trials for 8 hours yesterday. She is on CPAP trials today. 07/06: The patient tolerated CPAP trials for 10 hours yesterday. Normotensive. The patient continues have heart rate low 100's. PRN beta samina utilized during the night. 07/07: The patient was placed back on the ventilator during the night last night for a"rest". The patient continues to perform a CPAP trial. The patient was noted to be slightly hypertensive, metoprolol increased to every 8 hours. LTAC placement planned. 07/08: Currently resting in bed in no acute distress. Afebrile. Tolerating tube feeds. Positive BM. 07/09: Resting in bed on PSV trial in no acute distress. Tmax 99.4. Tolerating tube feeds. Positive BM. Neurologically unchanged. 07/10: Continues on PSV trial distress. Tmax 100.1. Currently 99.5. Tolerating tube feeds. Positive BM. Eyes and mouth are open. 07/11: Currently afebrile. Tolerating tube feeds. Lasted 2 hours on T piece trial today. Currently on PSV trial 07/12: Attempting for hours and T piece today. Tmax 101.1. Currently 99.8. Moves head aware in room. Eyes and mouth are both open. Subjective 07/13: Tmax 100.1. T piece 4 hours yesterday +2 hours. Will attempt 8 hours today. Minimum secretions from tracheostomy site. Panculture today and pro- calcitonin ordered per infectious disease note 07/14 No events overnight. Afebrile. On CPAP with PS 10, PEEP:5 and FIO2 30%. Tolerating tube feeds. 07/15 Patient remains on ventilator via trach, afebrile, tachycardic. On CPAP overnight. 07/16 Patient is back on PRVC mode. On no drips. Afebrile. 07/17 No events overnight. On CPAP overnight with PS 15, PEEP:5 and FIO2 30%. T: 99.9 07/18 No events overnight. Patient was on PRVC overnight now on CPAP 10/5 with 35 % FIO2. Afebrile. WBC trending down. 07/19 No events overnight. Afebrile. Tolerating tube feeds. 07/20 No events overnight. Tolerated CPAP all day yesterday and placed on PRVC mode overnight. Afebrile. 07/21 No events overnight. Patient was on CPAP all night with PS 10, PEEP:5 and FIo2 30% now on TP's with 35% FIO2. Objective Vital Signs Date Time Temp Pulse Resp B/P Pulse Ox O2 Delivery O2 Flow Rate FiO2 07/21/16 10:00 106 07/21/16 08:25 100 T-piece 6.00 35 07/21/16 08:00 98.8 24 134/69 Intake and Output 07/20/16 07/20/16 07/21/16 08:00 16:00 00:00 Intake Total 355 ml 617 ml 452 ml Output Total 600 ml 675 ml 450 ml Balance -245 ml -58 ml 2 ml Result Diagram: 07/21/16 0515 07/21/16 0515 Other Results Laboratory Tests Test 07/21/16 05:15 White Blood Count 13.3 TH/MM3 Red Blood Count 4.19 MIL/MM3 Hemoglobin 11.2 GM/DL Hematocrit 34.5 % Mean Corpuscular Volume 82.4 FL Mean Corpuscular Hemoglobin 26.7 PG Mean Corpuscular Hemoglobin 32.4 % Concent Red Cell Distribution Width 16.1 % Platelet Count 313 TH/MM3 Mean Platelet Volume 9.9 FL Neutrophils (%) (Auto) 73.2 % Lymphocytes (%) (Auto) 20.6 % Monocytes (%) (Auto) 5.2 % Eosinophils (%) (Auto) 0.7 % Basophils (%) (Auto) 0.3 % Neutrophils # (Auto) 9.7 TH/MM3 Lymphocytes # (Auto) 2.7 TH/MM3 Monocytes # (Auto) 0.7 TH/MM3 Eosinophils # (Auto) 0.1 TH/MM3 Basophils # (Auto) 0.0 TH/MM3 CBC Comment DIFF FINAL Differential Comment Sodium Level 138 MEQ/L Potassium Level 4.2 MEQ/L Chloride Level 101 MEQ/L Carbon Dioxide Level 28.3 MEQ/L Anion Gap 9 MEQ/L Blood Urea Nitrogen 15 MG/DL Creatinine 0.36 MG/DL Estimat Glomerular Filtration 226 ML/MIN Rate Random Glucose 103 MG/DL Calcium Level 9.2 MG/DL Imaging Last Impressions Lower Extremity Ultrasound 07/14/16 0800 Signed Impressions: Service Date/Time: Thursday, July 14, 2016 10:47 - CONCLUSION: Negative exam with no evidence of deep venous thrombosis. Rico Pedraza MD Chest X-Ray 07/14/16 0600 Signed Impressions: Service Date/Time: Thursday, July 14, 2016 04:23 - CONCLUSION: No acute cardiopulmonary disease. Jose Martinez MD Abdomen X-Ray 06/26/16 0000 Signed Impressions: Service Date/Time: June 13:08 - CONCLUSION: 1. Nasogastric tube in good position. Benign-appearing bowel gas pattern. Jd Underwood MD Abdomen/Pelvis CT 06/17/16 0000 Signed Impressions: Service Date/Time: Friday, June 17, 2016 04:12 - CONCLUSION: 1. New bibasilar atelectasis. 2. There is some mild dilatation of the small bowel. There is a mild to moderate distention of the colon down to the rectum suggestive of a diffuse adynamic ileus. No definite mechanical obstruction is seen. 3. Otherwise, no other significant changes compared to the prior study. Andi Luna MD Brain MRI 06/15/16 0000 Signed Impressions: Service Date/Time: Wednesday, June 15, 2016 09:10 - CONCLUSION: No acute abnormality seen. 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 Reginaldo Cain MD Head Magnetic Resonance Angiography 06/14/16 0000 Signed Impressions: Service Date/Time: Tuesday, June 14, 2016 18:23 - CONCLUSION: No evidence of vessel truncation or aneurysm. Simone Graham MD Liver Ultrasound 06/13/16 0000 Signed Impressions: Service Date/Time: Monday, June 13, 2016 09:42 - CONCLUSION: 1. Small amount free fluid identified medial to the lower pole of the right kidney. 2. Slight increased hepatic echotexture suggesting some degree of fatty infiltration. 3. Please note the body and tail of the pancreas are obscured by overlying bowel gas. The head neck and uncinate process are sonographically intact. Mauro Leslie MD Head CT 06/12/16 1657 Signed Impressions: Service Date/Time: May 21:37 - CONCLUSION: Unremarkable study. Jose Martinez MD Renal Ultrasound 06/12/16 0000 Signed Impressions: Service Date/Time: May 23:51 - CONCLUSION: 1. Mild pelvocaliectasis on the right. No hydronephrosis involving either kidney. Simone Woody Jr., MD Chest CT 06/12/16 0000 Signed Impressions: Service Date/Time: May 21:39 - CONCLUSION: Right upper lobe parenchymal process may represent pneumonia, however follow up is suggested with repeat noncontrast chest CT in 2-4 weeksafter appropriate clinical therapy. Jose Martinez MD Objective Remarks GENERAL: 56-year-old female, eyes and mouth are open on ventilator via trach. SKIN: Warm and dry. No rash HEAD: Normocephalic. EYES: Pallor present, No scleral icterus. No injection or drainage. NECK: Supple, trachea midline. Orotracheally intubated CARDIOVASCULAR: Tachycardic, RR. S1, S2 no S4. Without murmurs, gallops, or rubs. RESPIRATORY: Transmitted upper airway sounds. Diminished breath sounds in bases.. No wheezing noted GASTROINTESTINAL: Abdomen soft, non-tender, nondistended. Noted PEG in situ MUSCULOSKELETAL: No deformities. Dorsalis pedis posterior be else's are bilaterally palpable no decubitus ulcer EXTREMITIES: No significant peripheral edema NEURO: Eyes are open, mouth is open. Positive gag with trach suctioning. Withdraws to pain. A/P Assessment and Plan Neuro: Encephalopathy Left basal ganglia/IC CVA On no sedation. Monitor neuro status and avoid any sedatives. CT brain: No acute findings. UDS+ +Benzos MRA brain 06/14- Unremarkable. MRI brain 06/14 revealed lacunar infarct left basal ganglia left posterior and internal capsule s/p LP showed clear CSF and 15 WBC. EEG: Bihemispheric slowing, small sharp waves b/l Neuro is following- Dr. Boggs, On Keppra 500mg by PEG Q12 Continue Lyrica 25 mg twice a day encircling 100 mg by mouth daily/home medications Continue baclofen 10 mg 3 times a day for muscle spasms Continue as needed fentanyl 50 mcg for pain management Pulm: Vent dependent respiratory failure Acute hypoxemic respiratory failure Probable aspiration/HCAP with R volume loss Continue with vent support keep sat >92% Bronchodilators every 6 hours and as needed, ICU vent bundle. s/p perc trach placed 07/03, 8.[address] Raad Leger toilet, trach care, Continue CPAP/TP's trials as cherie CXR 07/14- No acute disease. CV: Hypertension Monitor HR and BP keep MAP>65mmHg. On Lopressor 50 mg Q6 for HR/BP control Norvasc 5mg PO daily/home medication : Monitor renal function, I/O's, avoid nephrotoxins. Electrolytes replacement per protocol. Renal US: No hydronephrosis. Renal is following- Dr. Corral GI/liver: Gastroesophageal reflux disease On Pepcid 20 milligrams by PEG qhs, tube feeds with Glucerna 1.5@60ml/hr Monitor LFT's (resolved), US liver: Fatty liver. Elevated urinary copper - GI is following. CT abdomen/pelvis 06/17- findings suggestive of adynamic ileus. No mechanical obstruction. On Reglan 5mg Iv q8 PRN, 06/[address] Davis ID: Staph aureus pneumonia - Continue abx ( Cipro) per ID, monitor for signs of infections ( Fever, WBC) --Ciff PCR negative on 07/18 Pertinent cultures: 06/12 Urine cx: E.coli 06/12 BC: No growth 06/12 CSG: NGTD 06/15 urine: E coli, sputum: MSSA 06/26: Blood sputum negative and urine cultures Pseudomonas 06/27 -bronchoscopy no growth pro-calcitonin level 0.23 on 07/13, blood cultures, urine cxs from 07/13- NGTD Urine cx 07/14 Enterobacter, Group D enterococcus, check UA with cx if indicated. Heme: Normocytic anemia Leukocytosis Monitor CBC Hep plt ab negative. 06/28-Transfused 2 units of PRBCs Endo: SSI for glycemic control, TSH level: 2.5 GI Prophylaxis with Pepcid DVT prophylaxis with SCD's, Heparin SQ 07/14 Doppler US LE negative for DVT Palliative care Dr. Venegas, following to assist with deciding goals of therapy. Patient's wishes to continue full CODE STATUS at this time, and continued aggressive treatment/therapies. Case management for LTAC placement Dispo: Level 2 Jose Smith MD July 21, 2016 10:23
[2016-07-21 13:48] LABS: BACTERIA, URINE OCC /hpf; BLOOD, URINE NEG (NEG); CALCIUM OXALATE CRYSTALS,URINE RARE /hpf; GLUCOSE,URINE NEG (NEG); KETONE, URINE NEG (NEG); MUCUS URINE FEW /lpf (OCC); NITRITE,URINE NEG (NEG); SQUAMOUS EPITHELIAL CELL URINE 1 /hpf (0-5); URINE COLOR YELLOW (YELLW/STRAW)
[2016-07-21 13:49] LABS: COMMENT (UR) CATH-CULTURE IND; CULTURE IF INDICATED CATH CULTURE IND
[2016-07-22] VITALS (22 sets, daily range): BP systolic 105–135; BP diastolic 58–86; PULSE 97–122; RESP 17–37; TEMP 98.2–99; O2SAT 94–100
[2016-07-22] MEDS: CHLORHEXIDINE GLUCONATE 2 % 1 PACK (2 CLOTHS) TOP SCH (04:00)
[2016-07-22] MEDS: METOPROLOL TARTRATE 50 MG TAB PO SCH ×3 (05:20→17:13)
[2016-07-22] MEDS: NYSTATIN 100,000 U/GM PWD 15 GM BTL TOPICAL SCH ×3 (05:20→20:21)
[2016-07-22 05:48] LABS: AUTOMATED NEUTROPHIL # 9.2 TH/MM3 (1.8-7.7); BASOPHIL % 0.3 % (0.0-2.0); EOSINOPHIL # 0.1 TH/MM3 (0-0.4); EOSINOPHIL % 0.5 % (0.0-4.0); HEMATOCRIT 35.4 % (35.0-46.0); HEMO FLAGS DIFF FINAL; LYMPH % 19.9 % (9.0-44.0); LYMPHOCYTE # 2.5 TH/MM3 (1.0-4.8); MEAN CELL VOLUME 83.6 FL (80.0-100.0); MEAN CORPUSCULAR HEMOGLOBIN 26.7 PG (27.0-34.0); MEAN CORPUSCULAR HGB CONC 31.9 % (32.0-36.0); MONO % 5.2 % (0.0-8.0); NEUT % 74.1 % (16.0-70.0); PLATELET COUNT 313 TH/MM3 (150-450); RED BLOOD COUNT 4.24 MIL/MM3 (4.00-5.30); RED CELL DISTRIBUTION WIDTH 16.5 % (11.6-17.2); WHITE BLOOD COUNT 12.5 TH/MM3 (4.0-11.0)
[2016-07-22 06:03] LABS: BICARBONATE 29.7 MEQ/L (21.0-32.0); POTASSIUM 4.6 MEQ/L (3.5-5.1)
--- NOTE | 2016-07-22 08:06 | HHI.CCPN ---
Subjective Remarks/Hospital Course 56-year-old female brought in by EMS emergently as altered mental status, hypoxia and temperature 104. Patient has a history of CVA many years ago. Per caregiver she didn't feel well since yesterday and wasn't taking any of medications including baclofen. Patient was unable to communicate due to her altered mental status. As per EMS not much history was available from the family but she has history of CVA as baseline but communicates. In the emergency department patient's oxygen saturation was low 70s upon EMS arrival. They had her on oxygen via nonrebreather and sats of 93%. GCS was 6 and she was intubated by ER attending for an airway protection. 06/13 Patient is sedated with Versed and on Bicarb drip. Renal function is improving with Cr: 2.12 from 3.19 UO: 1350ml since yesterday. Afebrile. 06/14 Patient remains sedated and intubated. Afebrile. Renal function continue to improve with Cr: 1.18 today from 1.53. 06/15 No acute events overnight. Off sedation remains intubated. Patient tolerated CPAP all day yesterday. MRA brain last night is unremarkable. T:99.9 06/16 Patient remains intubated off sedation. Afebrile. Tolerated CPAP all day yesterday remains encephalopathic. 06/17 No acute events overnight. Patient is able to open her eyes but does not follow commands. T: 100.1 last night. 06/18: Remains encephalopathic, orally intubated on mechanical ventilation. 06/19: Remains encephalopathic, orally intubated on mechanical ventilation. Daily C Pap trials ongoing. 06/20: Remains encephalopathic, orally intubated on mechanical ventilation. Daily C Pap trials. Tube feeds resumed. 06/21: More awake however not following commands. Remains orally intubated on mechanical ventilation. Tolerating tube feeds. Daily C Pap trials ongoing. 06/22: Encephalopathic though more awake, arousable. Not following commands. Remains orally intubated on mechanical ventilation. Tolerating tube feeds. Daily C Pap trials. 06/23: Awake, not following commands. Remains orally intubated on mechanical ventilation. Failing C Pap trials. Tolerating tube feeds. 06/24: Opening eyes, blinks on command. Remains orally intubated on mechanical ventilation. Tolerating tube feeds. Gets tachypneic with low volumes on dropping pressure-support at C Pap trials. We'll initiate diuresis as patient isn't significantly positive fluid balance since admission due to fluids administered for sepsis which now appears to be under control. 06/25: Awake, appears to focus. Extubated today following C Pap trial. Continue diuresis. 06/26: CCM reconsult note. Patient was extubated yesterday 06/25 and apparently was doing well initially. Overnight was placed on a 100% percent nonrebreather. I was called to the bedside emergently by Denny PATINO, today around 12.30 pm, patient was more unresponsive and hypoxemic on 100% nonrebreather. On my evaluation patient's eyes were open but nonresponsive, shallow breathing. Oxygen saturation 80% on 100 percent nonrebreather. Emergently intubated and placed on mechanical ventilation. Moderate amount of white secretions at glottic opening. CXR shows RLL infiltrate with volume loss? aspiration. Sputum cx. Discuss with ID Dr. Ortiz, will place on broad-spectrum antibiotics with Zosyn 06/27: Tmax 99.6 The patient was emergently reintubated yesterday, overnight no increasing ventilatory requirements were noted. The patient underwent a bronchoscopy with BAL this a.m., cultures were sent. Plan for PEG placement today. 06/28: Tmax 98.4 The patient underwent PEG placement yesterday, will resume tube feedings today. Mucomyst was initiated yesterday status post bronchial noted mucous plugs, with thick tenacious secretions. Will tentatively plan for tracheostomy next week, if unable to wean, and increasing ventilatory requirements. 06/29: She was noted to have a drop in hemoglobin last night, and received 2 units of packed red blood cells. Hemoccult has been ordered stat CBC to be followed up. No obvious signs of bleeding noted. 06/30: Hgb stable. No change in neuro status. will attempt CPAP trials. Palliative medicine, Dr. Venegas to schedule goals of care now with reintubation. 07/01: Remains encephalopathic. Hemoglobin stable at 10.0. No acute changes overnight. Discussion with palliative care team and , he would like aggressive measures/treatments to continue to include tracheostomy. General surgery has been consulted. 07/02: Afebrile. No acute changes overnight. Patient was evaluated by general surgery plans for tracheostomy in the next few days with coordination. 07/03: Afebrile. The patient was underwent percutaneous tracheostomy at bedside. Chest x-ray is pending. 07/04 No acute events overnight. s/p trach yesterday. Tolerating tube feeds. 07/05: Afebrile. The patient tolerated CPAP trials for 8 hours yesterday. She is on CPAP trials today. 07/06: The patient tolerated CPAP trials for 10 hours yesterday. Normotensive. The patient continues have heart rate low 100's. PRN beta samina utilized during the night. 07/07: The patient was placed back on the ventilator during the night last night for a"rest". The patient continues to perform a CPAP trial. The patient was noted to be slightly hypertensive, metoprolol increased to every 8 hours. LTAC placement planned. 07/08: Currently resting in bed in no acute distress. Afebrile. Tolerating tube feeds. Positive BM. 07/09: Resting in bed on PSV trial in no acute distress. Tmax 99.4. Tolerating tube feeds. Positive BM. Neurologically unchanged. 07/10: Continues on PSV trial distress. Tmax 100.1. Currently 99.5. Tolerating tube feeds. Positive BM. Eyes and mouth are open. 07/11: Currently afebrile. Tolerating tube feeds. Lasted 2 hours on T piece trial today. Currently on PSV trial 07/12: Attempting for hours and T piece today. Tmax 101.1. Currently 99.8. Moves head aware in room. Eyes and mouth are both open. Subjective 07/13: Tmax 100.1. T piece 4 hours yesterday +2 hours. Will attempt 8 hours today. Minimum secretions from tracheostomy site. Panculture today and pro- calcitonin ordered per infectious disease note 07/14 No events overnight. Afebrile. On CPAP with PS 10, PEEP:5 and FIO2 30%. Tolerating tube feeds. 07/15 Patient remains on ventilator via trach, afebrile, tachycardic. On CPAP overnight. 07/16 Patient is back on PRVC mode. On no drips. Afebrile. 07/17 No events overnight. On CPAP overnight with PS 15, PEEP:5 and FIO2 30%. T: 99.9 07/18 No events overnight. Patient was on PRVC overnight now on CPAP 10/5 with 35 % FIO2. Afebrile. WBC trending down. 07/19 No events overnight. Afebrile. Tolerating tube feeds. 07/20 No events overnight. Tolerated CPAP all day yesterday and placed on PRVC mode overnight. Afebrile. 07/21 No events overnight. Patient was on CPAP all night with PS 10, PEEP:5 and FIo2 30% now on TP's with 35% FIO2. 07/22 Patient tolerated TP's during day yesterday placed on CPAP overnight on PS 10, PEEP:5 and FIO2 30%. Afebrile. Objective Vital Signs Date Time Temp Pulse Resp B/P Pulse Ox O2 Delivery O2 Flow Rate FiO2 07/22/16 06:00 109 07/22/16 04:13 100 30 07/22/16 04:00 98.6 23 121/72 07/21/16 08:25 T-piece 6.00 Intake and Output 07/21/16 07/21/16 07/22/16 08:00 16:00 00:00 Intake Total 351 ml 543 ml 441 ml Output Total 700 ml 525 ml 150 ml Balance -349 ml 18 ml 291 ml Result Diagram: 07/22/16 0537 07/22/16 0537 Other Results Laboratory Tests Test 07/21/16 07/22/16 12:40 05:37 Urine Color YELLOW Urine Turbidity HAZY Urine pH 6.0 Urine Specific [place] 1.022 Urine Protein 30 mg/dL Urine Glucose (UA) NEG mg/dL Urine Ketones NEG mg/dL Urine Occult Blood NEG Urine Nitrite NEG Urine Bilirubin NEG Urine Urobilinogen LESS THAN 2.0 MG/DL Urine Leukocyte Esterase SMALL Urine RBC 1 /hpf Urine WBC 19 /hpf Urine Squamous Epithelial 1 /hpf Cells Urine Calcium Oxalate Crystals RARE /hpf Urine Bacteria OCC /hpf Urine Mucus FEW /lpf Urine Yeast (Budding) OCC Microscopic Urinalysis Comment CATH-CULTURE IND White Blood Count 12.5 TH/MM3 Red Blood Count 4.24 MIL/MM3 Hemoglobin 11.3 GM/DL Hematocrit 35.4 % Mean Corpuscular Volume 83.6 FL Mean Corpuscular Hemoglobin 26.7 PG Mean Corpuscular Hemoglobin 31.9 % Concent Red Cell Distribution Width 16.5 % Platelet Count 313 TH/MM3 Mean Platelet Volume 9.7 FL Neutrophils (%) (Auto) 74.1 % Lymphocytes (%) (Auto) 19.9 % Monocytes (%) (Auto) 5.2 % Eosinophils (%) (Auto) 0.5 % Basophils (%) (Auto) 0.3 % Neutrophils # (Auto) 9.2 TH/MM3 Lymphocytes # (Auto) 2.5 TH/MM3 Monocytes # (Auto) 0.7 TH/MM3 Eosinophils # (Auto) 0.1 TH/MM3 Basophils # (Auto) 0.0 TH/MM3 CBC Comment DIFF FINAL Differential Comment Sodium Level 138 MEQ/L Potassium Level 4.6 MEQ/L Chloride Level 101 MEQ/L Carbon Dioxide Level 29.7 MEQ/L Anion Gap 7 MEQ/L Blood Urea Nitrogen 18 MG/DL Creatinine 0.45 MG/DL Estimat Glomerular Filtration 175 ML/MIN Rate Random Glucose 110 MG/DL Calcium Level 9.5 MG/DL Imaging Last Impressions Lower Extremity Ultrasound 07/14/16 0800 Signed Impressions: Service Date/Time: Thursday, July 14, 2016 10:47 - CONCLUSION: Negative exam with no evidence of deep venous thrombosis. Rico Pedraza MD Chest X-Ray 07/14/16 0600 Signed Impressions: Service Date/Time: Thursday, July 14, 2016 04:23 - CONCLUSION: No acute cardiopulmonary disease. Jose Martinez MD Abdomen X-Ray 06/26/16 0000 Signed Impressions: Service Date/Time: June 13:08 - CONCLUSION: 1. Nasogastric tube in good position. Benign-appearing bowel gas pattern. Jd Underwood MD Abdomen/Pelvis CT 06/17/16 0000 Signed Impressions: Service Date/Time: Friday, June 17, 2016 04:12 - CONCLUSION: 1. New bibasilar atelectasis. 2. There is some mild dilatation of the small bowel. There is a mild to moderate distention of the colon down to the rectum suggestive of a diffuse adynamic ileus. No definite mechanical obstruction is seen. 3. Otherwise, no other significant changes compared to the prior study. Andi Luna MD Brain MRI 06/15/16 0000 Signed Impressions: Service Date/Time: Wednesday, June 15, 2016 09:10 - CONCLUSION: No acute abnormality seen. 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 Reginaldo Cain MD Head Magnetic Resonance Angiography 06/14/16 0000 Signed Impressions: Service Date/Time: Tuesday, June 14, 2016 18:23 - CONCLUSION: No evidence of vessel truncation or aneurysm. Simone Graham MD Liver Ultrasound 06/13/16 0000 Signed Impressions: Service Date/Time: Monday, June 13, 2016 09:42 - CONCLUSION: 1. Small amount free fluid identified medial to the lower pole of the right kidney. 2. Slight increased hepatic echotexture suggesting some degree of fatty infiltration. 3. Please note the body and tail of the pancreas are obscured by overlying bowel gas. The head neck and uncinate process are sonographically intact. Mauro Leslie MD Head CT [id number] Signed Impressions: Service Date/Time: May 21:37 - CONCLUSION: Unremarkable study. Jose Martinez MD Renal Ultrasound 06/12/16 Signed Impressions: Service Date/Time: May 23:51 - CONCLUSION: 1. Mild pelvocaliectasis on the right. No hydronephrosis involving either kidney. Simone Woody Jr., MD Chest CT 06/12/16 0000 Signed Impressions: Service Date/Time: May 21:39 - CONCLUSION: Right upper lobe parenchymal process may represent pneumonia, however follow up is suggested with repeat noncontrast chest CT in 2-4 weeksafter appropriate clinical therapy. Jose Martinez MD Objective Remarks GENERAL: 56-year-old female, eyes and mouth are open on ventilator via trach. SKIN: Warm and dry. No rash HEAD: Normocephalic. EYES: Pallor present, No scleral icterus. No injection or drainage. NECK: Supple, trachea midline. Orotracheally intubated CARDIOVASCULAR: Tachycardic, RR. S1, S2 no S4. Without murmurs, gallops, or rubs. RESPIRATORY: Transmitted upper airway sounds. Diminished breath sounds in bases.. No wheezing noted GASTROINTESTINAL: Abdomen soft, non-tender, nondistended. Noted PEG in situ MUSCULOSKELETAL: No deformities. Dorsalis pedis posterior be else's are bilaterally palpable no decubitus ulcer EXTREMITIES: No significant peripheral edema NEURO: Eyes are open, mouth is open. Positive gag with trach suctioning. Withdraws to pain. A/P Assessment and Plan Neuro: Encephalopathy Left basal ganglia/IC CVA On no sedation. Monitor neuro status and avoid any sedatives. CT brain: No acute findings. UDS+ +Benzos MRA brain 06/14- Unremarkable. MRI brain 06/14 revealed lacunar infarct left basal ganglia left posterior and internal capsule s/p LP showed clear CSF and 15 WBC. EEG: Bihemispheric slowing, small sharp waves b/l Neuro is following- Dr. Boggs, On Keppra 500mg by PEG Q12 Continue Lyrica 25 mg twice a day encircling 100 mg by mouth daily/home medications Continue baclofen 10 mg 3 times a day for muscle spasms Continue as needed fentanyl 50 mcg for pain management Pulm: Vent dependent respiratory failure Acute hypoxemic respiratory failure Probable aspiration/HCAP with R volume loss Continue with vent support keep sat >92% Bronchodilators every 6 hours and as needed, ICU vent bundle. s/p perc trach placed 07/03, 8.[address] Shankar Pul toilet, trach care, Continue CPAP/TP's trials as cherie CXR 07/14- No acute disease. CV: Hypertension Monitor HR and BP keep MAP>65mmHg. On Lopressor 50 mg Q6 for HR/BP control Norvasc 5mg PO daily/home medication : Monitor renal function, I/O's, avoid nephrotoxins. Electrolytes replacement per protocol. Renal US: No hydronephrosis. Renal is following- Dr. Corral GI/liver: Gastroesophageal reflux disease On Pepcid 20 milligrams by PEG qhs, tube feeds with Glucerna 1.5@60ml/hr Monitor LFT's (resolved), US liver: Fatty liver. Elevated urinary copper - GI is following. CT abdomen/pelvis 06/17- findings suggestive of adynamic ileus. No mechanical obstruction. On Reglan 5mg Iv q8 PRN, 06/[address] Davis ID: Staph aureus pneumonia - Continue abx ( Cipro) per ID, monitor for signs of infections ( Fever, WBC) --Ciff PCR negative on 07/18 Pertinent cultures: 06/12 Urine cx: E.coli 06/12 BC: No growth 4/20 CSG: NGTD 06/15 urine: E coli, sputum: MSSA 06/26: Blood sputum negative and urine cultures Pseudomonas 06/27 -bronchoscopy no growth pro-calcitonin level 0.23 on 07/13, blood cultures, urine cxs from 07/13- NGTD Urine cx 07/14 Enterobacter, Group D enterococcus, Follow up on urine cx from 07/21 Heme: Normocytic anemia Leukocytosis Monitor CBC Hep plt ab negative. 06/28-Transfused 2 units of PRBCs Endo: SSI for glycemic control, TSH level: 2.5 GI Prophylaxis with Pepcid DVT prophylaxis with SCD's, Heparin SQ 07/14 Doppler US LE negative for DVT Palliative care Dr. Venegas, following to assist with deciding goals of therapy. Patient's wishes to continue full CODE STATUS at this time, and continued aggressive treatment/therapies. Case management for LTAC placement Dispo: Level 2 Jose Smith MD July 22, 2016 08:06
[2016-07-22] MEDS: levETIRAcetam 500 MG/5 ML UDC NG SCH ×2 (08:30→20:20)
[2016-07-22] MEDS: HEPARIN SODIUM - SQ 10,000 UNITS/ML VIAL SQ SCH ×2 (08:30→20:20)
[2016-07-22] MEDS: PREGABALIN 75 MG CAP PO SCH ×2 (08:31→20:19)
[2016-07-22] MEDS: amLODIPine BESYLATE 5 MG TAB PO SCH (08:31)
[2016-07-22] MEDS: SODIUM CHLORIDE 0.9% FLUSH 10 ML FLUSH IV FLUSH SCH ×2 (08:31→20:20)
[2016-07-22] MEDS: CHLORHEXIDINE 0.12% (ORAL KIT) 15 ML CUP MT SCH ×2 (08:31→20:19)
[2016-07-22] MEDS: CIPROFLOXACIN 500 MG TAB PO SCH ×2 (08:31→20:19)
[2016-07-22] MEDS: BACLOFEN 10 MG TAB PO SCH ×3 (08:31→17:13)
[2016-07-22] MEDS: FAMOTIDINE 20 MG TAB NG SCH (08:31)
[2016-07-22] MEDS: FLUCONAZOLE 100 MG TAB PO SCH (13:10)
[2016-07-23] VITALS (15 sets, daily range): BP systolic 107–136; BP diastolic 69–82; PULSE 105–132; RESP 20–27; TEMP 97.4–99.1; O2SAT 98–100
[2016-07-23] MEDS: CHLORHEXIDINE GLUCONATE 2 % 1 PACK (2 CLOTHS) TOP SCH (04:00)
[2016-07-23] MEDS: LABETALOL HCL 100 MG/20 ML VIAL IV PUSH PRN (04:30)
[2016-07-23] MEDS: METOPROLOL TARTRATE 50 MG TAB PO SCH ×4 (05:35→17:41)
[2016-07-23] MEDS: NYSTATIN 100,000 U/GM PWD 15 GM BTL TOPICAL SCH ×3 (05:35→21:05)
[2016-07-23 06:53] LABS: AUTOMATED NEUTROPHIL # 8.6 TH/MM3 (1.8-7.7); EOSINOPHIL % 0.4 % (0.0-4.0); HEMATOCRIT 34.6 % (35.0-46.0); HEMO FLAGS DIFF FINAL; LYMPHOCYTE # 1.9 TH/MM3 (1.0-4.8); MEAN CORPUSCULAR HEMOGLOBIN 26.6 PG (27.0-34.0); MEAN CORPUSCULAR HGB CONC 32.1 % (32.0-36.0); NEUT % 77.6 % (16.0-70.0); PLATELET COUNT 299 TH/MM3 (150-450); RED BLOOD COUNT 4.17 MIL/MM3 (4.00-5.30); RED CELL DISTRIBUTION WIDTH 16.4 % (11.6-17.2); WHITE BLOOD COUNT 11.1 TH/MM3 (4.0-11.0)
[2016-07-23 07:08] LABS: BICARBONATE 29.3 MEQ/L (21.0-32.0); POTASSIUM 4.1 MEQ/L (3.5-5.1)
[2016-07-23] MEDS: FLUCONAZOLE 100 MG TAB PO SCH (07:35)
[2016-07-23] MEDS: amLODIPine BESYLATE 5 MG TAB PO SCH (07:35)
[2016-07-23] MEDS: CIPROFLOXACIN 500 MG TAB PO SCH ×2 (07:35→21:04)
[2016-07-23] MEDS: CHLORHEXIDINE 0.12% (ORAL KIT) 15 ML CUP MT SCH ×2 (07:35→19:18)
[2016-07-23] MEDS: PREGABALIN 75 MG CAP PO SCH ×2 (07:36→21:04)
[2016-07-23] MEDS: BACLOFEN 10 MG TAB PO SCH ×3 (07:36→17:41)
[2016-07-23] MEDS: FAMOTIDINE 20 MG TAB NG SCH (07:36)
[2016-07-23] MEDS: levETIRAcetam 500 MG/5 ML UDC NG SCH ×2 (07:36→21:04)
[2016-07-23] MEDS: SODIUM CHLORIDE 0.9% FLUSH 10 ML FLUSH IV FLUSH SCH ×2 (07:36→21:04)
[2016-07-23] MEDS: HEPARIN SODIUM - SQ 10,000 UNITS/ML VIAL SQ SCH ×2 (07:36→21:04)
--- NOTE | 2016-07-23 13:04 | HHI.CCPN ---
Subjective Remarks/Hospital Course 56-year-old female brought in by EMS emergently as altered mental status, hypoxia and temperature 104. Patient has a history of CVA many years ago. Per caregiver she didn't feel well since yesterday and wasn't taking any of medications including baclofen. Patient was unable to communicate due to her altered mental status. As per EMS not much history was available from the family but she has history of CVA as baseline but communicates. In the emergency department patient's oxygen saturation was low 70s upon EMS arrival. They had her on oxygen via nonrebreather and sats of 93%. GCS was 6 and she was intubated by ER attending for an airway protection. 06/13 Patient is sedated with Versed and on Bicarb drip. Renal function is improving with Cr: 2.12 from 3.19 UO: 1350ml since yesterday. Afebrile. 06/14 Patient remains sedated and intubated. Afebrile. Renal function continue to improve with Cr: 1.18 today from 1.53. 06/15 No acute events overnight. Off sedation remains intubated. Patient tolerated CPAP all day yesterday. MRA brain last night is unremarkable. T:99.9 06/16 Patient remains intubated off sedation. Afebrile. Tolerated CPAP all day yesterday remains encephalopathic. 06/17 No acute events overnight. Patient is able to open her eyes but does not follow commands. T: 100.1 last night. 06/18: Remains encephalopathic, orally intubated on mechanical ventilation. 06/19: Remains encephalopathic, orally intubated on mechanical ventilation. Daily C Pap trials ongoing. 06/20: Remains encephalopathic, orally intubated on mechanical ventilation. Daily C Pap trials. Tube feeds resumed. 06/21: More awake however not following commands. Remains orally intubated on mechanical ventilation. Tolerating tube feeds. Daily C Pap trials ongoing. 06/22: Encephalopathic though more awake, arousable. Not following commands. Remains orally intubated on mechanical ventilation. Tolerating tube feeds. Daily C Pap trials. 06/23: Awake, not following commands. Remains orally intubated on mechanical ventilation. Failing C Pap trials. Tolerating tube feeds. 06/24: Opening eyes, blinks on command. Remains orally intubated on mechanical ventilation. Tolerating tube feeds. Gets tachypneic with low volumes on dropping pressure-support at C Pap trials. We'll initiate diuresis as patient isn't significantly positive fluid balance since admission due to fluids administered for sepsis which now appears to be under control. 06/25: Awake, appears to focus. Extubated today following C Pap trial. Continue diuresis. 06/26: CCM reconsult note. Patient was extubated yesterday 06/25 and apparently was doing well initially. Overnight was placed on a 100% percent nonrebreather. I was called to the bedside emergently by Denny PATINO, today around 12.30 pm, patient was more unresponsive and hypoxemic on 100% nonrebreather. On my evaluation patient's eyes were open but nonresponsive, shallow breathing. Oxygen saturation 80% on 100 percent nonrebreather. Emergently intubated and placed on mechanical ventilation. Moderate amount of white secretions at glottic opening. CXR shows RLL infiltrate with volume loss? aspiration. Sputum cx. Discuss with ID Dr. Ortiz, will place on broad-spectrum antibiotics with Zosyn 06/27: Tmax 99.6 The patient was emergently reintubated yesterday, overnight no increasing ventilatory requirements were noted. The patient underwent a bronchoscopy with BAL this a.m., cultures were sent. Plan for PEG placement today. 06/28: Tmax 98.4 The patient underwent PEG placement yesterday, will resume tube feedings today. Mucomyst was initiated yesterday status post bronchial noted mucous plugs, with thick tenacious secretions. Will tentatively plan for tracheostomy next week, if unable to wean, and increasing ventilatory requirements. 06/29: She was noted to have a drop in hemoglobin last night, and received 2 units of packed red blood cells. Hemoccult has been ordered stat CBC to be followed up. No obvious signs of bleeding noted. 06/30: Hgb stable. No change in neuro status. will attempt CPAP trials. Palliative medicine, Dr. Venegas to schedule goals of care now with reintubation. 07/01: Remains encephalopathic. Hemoglobin stable at 10.0. No acute changes overnight. Discussion with palliative care team and , he would like aggressive measures/treatments to continue to include tracheostomy. General surgery has been consulted. 07/02: Afebrile. No acute changes overnight. Patient was evaluated by general surgery plans for tracheostomy in the next few days with coordination. 07/03: Afebrile. The patient was underwent percutaneous tracheostomy at bedside. Chest x-ray is pending. 07/04 No acute events overnight. s/p trach yesterday. Tolerating tube feeds. 07/05: Afebrile. The patient tolerated CPAP trials for 8 hours yesterday. She is on CPAP trials today. 07/06: The patient tolerated CPAP trials for 10 hours yesterday. Normotensive. The patient continues have heart rate low 100's. PRN beta samina utilized during the night. 07/07: The patient was placed back on the ventilator during the night last night for a"rest". The patient continues to perform a CPAP trial. The patient was noted to be slightly hypertensive, metoprolol increased to every 8 hours. LTAC placement planned. 07/08: Currently resting in bed in no acute distress. Afebrile. Tolerating tube feeds. Positive BM. 07/09: Resting in bed on PSV trial in no acute distress. Tmax 99.4. Tolerating tube feeds. Positive BM. Neurologically unchanged. 07/10: Continues on PSV trial distress. Tmax 100.1. Currently 99.5. Tolerating tube feeds. Positive BM. Eyes and mouth are open. 07/11: Currently afebrile. Tolerating tube feeds. Lasted 2 hours on T piece trial today. Currently on PSV trial 07/12: Attempting for hours and T piece today. Tmax 101.1. Currently 99.8. Moves head aware in room. Eyes and mouth are both open. 07/13: Tmax 100.1. T piece 4 hours yesterday +2 hours. Will attempt 8 hours today. Minimum secretions from tracheostomy site. Panculture today and pro- calcitonin ordered per infectious disease note 07/14 No events overnight. Afebrile. On CPAP with PS 10, PEEP:5 and FIO2 30%. Tolerating tube feeds. 07/15 Patient remains on ventilator via trach, afebrile, tachycardic. On CPAP overnight. 07/16 Patient is back on PRVC mode. On no drips. Afebrile. 07/17 No events overnight. On CPAP overnight with PS 15, PEEP:5 and FIO2 30%. T: 99.9 07/18 No events overnight. Patient was on PRVC overnight now on CPAP 10/5 with 35 % FIO2. Afebrile. WBC trending down. 07/19 No events overnight. Afebrile. Tolerating tube feeds. 07/20 No events overnight. Tolerated CPAP all day yesterday and placed on PRVC mode overnight. Afebrile. 07/21 No events overnight. Patient was on CPAP all night with PS 10, PEEP:5 and FIo2 30% now on TP's with 35% FIO2. 07/22 Patient tolerated TP's during day yesterday placed on CPAP overnight on PS 10, PEEP:5 and FIO2 30%. Afebrile. Subjective 07/23: Tmax 99.1. Tolerating T piece 20 hours yesterday. Currently back on T piece. Tolerating tube feeds. Positive BM. Objective Vital Signs Date Time Temp Pulse Resp B/P Pulse Ox O2 Delivery O2 Flow Rate FiO2 07/23/16 10:00 110 07/23/16 08:42 15 07/23/16 08:15 28 07/23/16 08:09 98 T-piece 6.00 07/23/16 08:00 99.1 113/72 Intake and Output 07/22/16 07/22/16 07/23/16 08:00 16:00 00:00 Intake Total 424 ml 632 ml 493 ml Output Total 185 ml 1350 ml 700 ml Balance 239 ml -718 ml -207 ml Result Diagram: 07/23/16 0530 07/23/16 0532 Other Results Microbiology Date/Time Procedure Status Source Growth 07/21/16 12:40 Urine Culture - Final Complete Urine Catheterized Urine [facility] Last Impressions Lower Extremity Ultrasound 07/14/16 0800 Signed Impressions: Service Date/Time: Thursday, July 14, 2016 10:47 - CONCLUSION: Negative exam with no evidence of deep venous thrombosis. Rico Pedraza MD Chest X-Ray 07/14/16 0600 Signed Impressions: Service Date/Time: Thursday, July 14, 2016 04:23 - CONCLUSION: No acute cardiopulmonary disease. Jose Martinez MD Abdomen X-Ray 06/26/16 0000 Signed Impressions: Service Date/Time: June 13:08 - CONCLUSION: 1. Nasogastric tube in good position. Benign-appearing bowel gas pattern. Jd Underwood MD Abdomen/Pelvis CT 06/17/16 Signed Impressions: Service Date/Time: Friday, June 17, 2016 04:12 - CONCLUSION: 1. New bibasilar atelectasis. 2. There is some mild dilatation of the small bowel. There is a mild to moderate distention of the colon down to the rectum suggestive of a diffuse adynamic ileus. No definite mechanical obstruction is seen. 3. Otherwise, no other significant changes compared to the prior study. Andi Luna MD Brain MRI 06/15/16 Signed Impressions: Service Date/Time: Wednesday, June 15, 2016 09:10 - CONCLUSION: No acute abnormality seen. 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 Reginaldo Cain MD Head Magnetic Resonance Angiography 06/14/16 Signed Impressions: Service Date/Time: Tuesday, June 14, 2016 18:23 - CONCLUSION: No evidence of vessel truncation or aneurysm. Simone Graham MD Liver Ultrasound 06/13/16 Signed Impressions: Service Date/Time: Monday, June 13, 2016 09:42 - CONCLUSION: 1. Small amount free fluid identified medial to the lower pole of the right kidney. 2. Slight increased hepatic echotexture suggesting some degree of fatty infiltration. 3. Please note the body and tail of the pancreas are obscured by overlying bowel gas. The head neck and uncinate process are sonographically intact. Mauro Leslie MD Head CT 06/12/167 Signed Impressions: Service Date/Time: May 21:37 - CONCLUSION: Unremarkable study. Jose Martinez MD Renal Ultrasound 06/12/16 Signed Impressions: Service Date/Time: May 23:51 - CONCLUSION: 1. Mild pelvocaliectasis on the right. No hydronephrosis involving either kidney. Simone Woody Jr., MD Chest CT 06/12/16 Signed Impressions: Service Date/Time: May 21:39 - CONCLUSION: Right upper lobe parenchymal process may represent pneumonia, however follow up is suggested with repeat noncontrast chest CT in 2-4 weeksafter appropriate clinical therapy. Jose Martinez MD Objective Remarks GENERAL: 56-year-old female, eyes and mouth are open on ventilator via trach. SKIN: Warm and dry. No rash HEAD: Normocephalic. EYES: Pallor present, No scleral icterus. No injection or drainage. NECK: Supple, trachea midline. CARDIOVASCULAR: Tachycardic, RR. S1, S2 no S4. Without murmurs, gallops, or rubs. RESPIRATORY: Transmitted upper airway sounds. Diminished breath sounds in bases.. No wheezing noted GASTROINTESTINAL: Abdomen soft, non-tender, nondistended. Noted PEG clean dry and intact MUSCULOSKELETAL: No deformities. Dorsalis pedis posterior be else's are bilaterally palpable no decubitus ulcer EXTREMITIES: No significant peripheral edema NEURO: Eyes are open, mouth is open. Positive gag with trach suctioning. Withdraws to pain. A/P Assessment and Plan Neuro: Encephalopathy Left basal ganglia/IC CVA On no sedation. Monitor neuro status and avoid any sedatives. CT brain: No acute findings. UDS+ +Benzos MRA brain 06/14- Unremarkable. MRI brain 06/14 revealed lacunar infarct left basal ganglia left posterior and internal capsule s/p LP showed clear CSF and 15 WBC. EEG: Bihemispheric slowing, small sharp waves b/l Neuro is following- Dr. Boggs, On Keppra 500mg by PEG Q12 Continue Lyrica 25 mg twice a day encircling 100 mg by mouth daily/home medications Continue baclofen 10 mg 3 times a day for muscle spasms Continue as needed fentanyl 50 mcg f as needed or pain management Pulm: Vent dependent respiratory failure Acute hypoxemic respiratory failure Probable aspiration/HCAP with R volume loss Continue with vent support keep sat >92% Bronchodilators every 6 hours and as needed, ICU vent bundle. s/p perc trach placed 07/03, 8.[address] Shankar Pulm toilet, trach care, Continue CPAP/TP's trials as cherie CXR 07/14- No acute disease. CV: Hypertension Monitor HR and BP keep MAP>65mmHg. On Lopressor 50 mg Q6 for HR/BP control Norvasc 5mg PO daily/home medication : Monitor renal function, I/O's, avoid nephrotoxins. Electrolytes replacement per protocol. Renal US: No hydronephrosis. Renal has followed- Dr. Corral GI/liver: Gastroesophageal reflux disease On Pepcid 20 milligrams by PEG qhs, tube feeds with Glucerna 1.5@60ml/hr Monitor LFT's (resolved), US liver: Fatty liver. Elevated urinary copper - GI is following. CT abdomen/pelvis 06/17- findings suggestive of adynamic ileus. No mechanical obstruction. On Reglan 5mg Iv q8 PRN, 06/[address] Davis ID: Staph aureus pneumonia Enterococcus species UTI - Continue abx ( Cipro) per ID, monitor for signs of infections ( Fever, WBC) --Ciff PCR negative on 07/18 Pertinent cultures: 06/12 Urine cx: E.coli 06/12 BC: No growth 06/12 CSG: NGTD 06/15 urine: E coli, sputum: MSSA 06/26: Blood sputum negative and urine cultures Pseudomonas 06/27 -bronchoscopy no growth pro-calcitonin level 0.23 on 07/13, blood cultures, urine cxs from 07/13- NGTD Urine cx 07/14 Enterobacter, Group D enterococcus, Follow up on urine cx from 07/21 revealed C. albicans and enterococcus species including faecalis Start on Cipro 500 twice a day until 07/26 and Diflucan 100 daily per ID Heme: Normocytic anemia Leukocytosis Monitor CBC Hep plt ab negative. 06/28-Transfused 2 units of PRBCs Endo: SSI for glycemic control, TSH level: 2.5 GI Prophylaxis with Pepcid DVT prophylaxis with SCD's, Heparin SQ 07/14 Doppler US LE negative for DVT Palliative care Dr. Venegas, following to assist with deciding goals of therapy. Patient's wishes to continue full CODE STATUS at this time, and continued aggressive treatment/therapies. Case management for LTAC placement Dispo: Level 2 Dung Jeffries MD July 23, 2016 13:04
[2016-07-24] VITALS (14 sets, daily range): BP systolic 118–133; BP diastolic 69–85; PULSE 104–117; RESP 20–24; TEMP 98.6–100.1; O2SAT 93–100
[2016-07-24] MEDS: METOPROLOL TARTRATE 50 MG TAB PO SCH ×4 (00:02→17:50)
[2016-07-24] MEDS: CHLORHEXIDINE GLUCONATE 2 % 1 PACK (2 CLOTHS) TOP SCH (00:04)
[2016-07-24] MEDS: NYSTATIN 100,000 U/GM PWD 15 GM BTL TOPICAL SCH ×3 (05:33→21:14)
[2016-07-24] MEDS: BACLOFEN 10 MG TAB PO SCH ×3 (07:49→17:50)
[2016-07-24] MEDS: CIPROFLOXACIN 500 MG TAB PO SCH ×2 (07:49→21:12)
[2016-07-24] MEDS: levETIRAcetam 500 MG/5 ML UDC NG SCH ×2 (07:49→21:12)
[2016-07-24] MEDS: HEPARIN SODIUM - SQ 10,000 UNITS/ML VIAL SQ SCH ×2 (07:49→21:12)
[2016-07-24] MEDS: PREGABALIN 75 MG CAP PO SCH ×2 (07:49→21:12)
[2016-07-24] MEDS: FAMOTIDINE 20 MG TAB NG SCH (07:50)
[2016-07-24] MEDS: FLUCONAZOLE 100 MG TAB PO SCH (07:50)
[2016-07-24] MEDS: amLODIPine BESYLATE 5 MG TAB PO SCH (07:50)
[2016-07-24] MEDS: CHLORHEXIDINE 0.12% (ORAL KIT) 15 ML CUP MT SCH ×2 (08:00→20:00)
[2016-07-24] MEDS: SODIUM CHLORIDE 0.9% FLUSH 10 ML FLUSH IV FLUSH SCH ×2 (09:00→21:00)
--- NOTE | 2016-07-24 12:33 | HHI.CCPN ---
Subjective Remarks/Hospital Course 56-year-old female brought in by EMS emergently as altered mental status, hypoxia and temperature 104. Patient has a history of CVA many years ago. Per caregiver she didn't feel well since yesterday and wasn't taking any of medications including baclofen. Patient was unable to communicate due to her altered mental status. As per EMS not much history was available from the family but she has history of CVA as baseline but communicates. In the emergency department patient's oxygen saturation was low 70s upon EMS arrival. They had her on oxygen via nonrebreather and sats of 93%. GCS was 6 and she was intubated by ER attending for an airway protection. 06/13 Patient is sedated with Versed and on Bicarb drip. Renal function is improving with Cr: 2.12 from 3.19 UO: 1350ml since yesterday. Afebrile. 06/14 Patient remains sedated and intubated. Afebrile. Renal function continue to improve with Cr: 1.18 today from 1.53. 06/15 No acute events overnight. Off sedation remains intubated. Patient tolerated CPAP all day yesterday. MRA brain last night is unremarkable. T:99.9 06/16 Patient remains intubated off sedation. Afebrile. Tolerated CPAP all day yesterday remains encephalopathic. 06/17 No acute events overnight. Patient is able to open her eyes but does not follow commands. T: 100.1 last night. 06/18: Remains encephalopathic, orally intubated on mechanical ventilation. 06/19: Remains encephalopathic, orally intubated on mechanical ventilation. Daily C Pap trials ongoing. 06/20: Remains encephalopathic, orally intubated on mechanical ventilation. Daily C Pap trials. Tube feeds resumed. 06/21: More awake however not following commands. Remains orally intubated on mechanical ventilation. Tolerating tube feeds. Daily C Pap trials ongoing. 06/22: Encephalopathic though more awake, arousable. Not following commands. Remains orally intubated on mechanical ventilation. Tolerating tube feeds. Daily C Pap trials. 06/23: Awake, not following commands. Remains orally intubated on mechanical ventilation. Failing C Pap trials. Tolerating tube feeds. 06/24: Opening eyes, blinks on command. Remains orally intubated on mechanical ventilation. Tolerating tube feeds. Gets tachypneic with low volumes on dropping pressure-support at C Pap trials. We'll initiate diuresis as patient isn't significantly positive fluid balance since admission due to fluids administered for sepsis which now appears to be under control. 06/25: Awake, appears to focus. Extubated today following C Pap trial. Continue diuresis. 06/26: CCM reconsult note. Patient was extubated yesterday 06/25 and apparently was doing well initially. Overnight was placed on a 100% percent nonrebreather. I was called to the bedside emergently by Denny PATINO, today around 12.30 pm, patient was more unresponsive and hypoxemic on 100% nonrebreather. On my evaluation patient's eyes were open but nonresponsive, shallow breathing. Oxygen saturation 80% on 100 percent nonrebreather. Emergently intubated and placed on mechanical ventilation. Moderate amount of white secretions at glottic opening. CXR shows RLL infiltrate with volume loss? aspiration. Sputum cx. Discuss with ID Dr. Ortiz, will place on broad-spectrum antibiotics with Zosyn 06/27: Tmax 99.6 The patient was emergently reintubated yesterday, overnight no increasing ventilatory requirements were noted. The patient underwent a bronchoscopy with BAL this a.m., cultures were sent. Plan for PEG placement today. 06/28: Tmax 98.4 The patient underwent PEG placement yesterday, will resume tube feedings today. Mucomyst was initiated yesterday status post bronchial noted mucous plugs, with thick tenacious secretions. Will tentatively plan for tracheostomy next week, if unable to wean, and increasing ventilatory requirements. 06/29: She was noted to have a drop in hemoglobin last night, and received 2 units of packed red blood cells. Hemoccult has been ordered stat CBC to be followed up. No obvious signs of bleeding noted. 06/30: Hgb stable. No change in neuro status. will attempt CPAP trials. Palliative medicine, Dr. Venegas to schedule goals of care now with reintubation. 07/01: Remains encephalopathic. Hemoglobin stable at 10.0. No acute changes overnight. Discussion with palliative care team and , he would like aggressive measures/treatments to continue to include tracheostomy. General surgery has been consulted. 07/02: Afebrile. No acute changes overnight. Patient was evaluated by general surgery plans for tracheostomy in the next few days with coordination. 07/03: Afebrile. The patient was underwent percutaneous tracheostomy at bedside. Chest x-ray is pending. 07/04 No acute events overnight. s/p trach yesterday. Tolerating tube feeds. 07/05: Afebrile. The patient tolerated CPAP trials for 8 hours yesterday. She is on CPAP trials today. 07/06: The patient tolerated CPAP trials for 10 hours yesterday. Normotensive. The patient continues have heart rate low 100's. PRN beta samina utilized during the night. 07/07: The patient was placed back on the ventilator during the night last night for a"rest". The patient continues to perform a CPAP trial. The patient was noted to be slightly hypertensive, metoprolol increased to every 8 hours. LTAC placement planned. 07/08: Currently resting in bed in no acute distress. Afebrile. Tolerating tube feeds. Positive BM. 07/09: Resting in bed on PSV trial in no acute distress. Tmax 99.4. Tolerating tube feeds. Positive BM. Neurologically unchanged. 07/10: Continues on PSV trial distress. Tmax 100.1. Currently 99.5. Tolerating tube feeds. Positive BM. Eyes and mouth are open. 07/11: Currently afebrile. Tolerating tube feeds. Lasted 2 hours on T piece trial today. Currently on PSV trial 07/12: Attempting for hours and T piece today. Tmax 101.1. Currently 99.8. Moves head aware in room. Eyes and mouth are both open. 07/13: Tmax 100.1. T piece 4 hours yesterday +2 hours. Will attempt 8 hours today. Minimum secretions from tracheostomy site. Panculture today and pro- calcitonin ordered per infectious disease note 07/14 No events overnight. Afebrile. On CPAP with PS 10, PEEP:5 and FIO2 30%. Tolerating tube feeds. 07/15 Patient remains on ventilator via trach, afebrile, tachycardic. On CPAP overnight. 07/16 Patient is back on PRVC mode. On no drips. Afebrile. 07/17 No events overnight. On CPAP overnight with PS 15, PEEP:5 and FIO2 30%. T: 99.9 07/18 No events overnight. Patient was on PRVC overnight now on CPAP 10/5 with 35 % FIO2. Afebrile. WBC trending down. 07/19 No events overnight. Afebrile. Tolerating tube feeds. 07/20 No events overnight. Tolerated CPAP all day yesterday and placed on PRVC mode overnight. Afebrile. 07/21 No events overnight. Patient was on CPAP all night with PS 10, PEEP:5 and FIo2 30% now on TP's with 35% FIO2. 07/22 Patient tolerated TP's during day yesterday placed on CPAP overnight on PS 10, PEEP:5 and FIO2 30%. Afebrile. 07/23: Tmax 99.1. Tolerating T piece 20 hours yesterday. Currently back on T piece. Tolerating tube feeds. Positive BM. Subjective 07/24: Tolerated T piece times past 2+ days. Tolerating tube feeding. Positive BM. Afebrile. Objective Vital Signs Date Time Temp Pulse Resp B/P Pulse Ox O2 Delivery O2 Flow Rate FiO2 07/24/16 12:00 109 07/24/16 04:00 98.8 22 118/74 100 07/24/16 04:00 28 07/24/16 01:00 T-piece 6.00 Intake and Output 07/23/16 07/23/16 07/24/16 08:00 16:00 00:00 Intake Total 277 ml 738 ml 456 ml Output Total 300 ml 1300 ml 350 ml Balance -23 ml -562 ml 106 ml Result Diagram: 07/23/16 0530 07/23/16 0532 Other Results Microbiology Date/Time Procedure Status Source Growth 07/21/16 12:40 Urine Culture - Final Complete Urine Catheterized Urine Alicia [facility] Last Impressions Lower Extremity Ultrasound 07/14/16 0800 Signed Impressions: Service Date/Time: Thursday, July 14, 2016 10:47 - CONCLUSION: Negative exam with no evidence of deep venous thrombosis. Rico Pedraza MD Chest X-Ray 07/14/16 0600 Signed Impressions: Service Date/Time: Thursday, July 14, 2016 04:23 - CONCLUSION: No acute cardiopulmonary disease. Jose Martinez MD Abdomen X-Ray 06/26/16 0000 Signed Impressions: Service Date/Time: June 13:08 - CONCLUSION: 1. Nasogastric tube in good position. Benign-appearing bowel gas pattern. Jd Underwood MD Abdomen/Pelvis CT 06/17/16 Signed Impressions: Service Date/Time: Friday, June 17, 2016 04:12 - CONCLUSION: 1. New bibasilar atelectasis. 2. There is some mild dilatation of the small bowel. There is a mild to moderate distention of the colon down to the rectum suggestive of a diffuse adynamic ileus. No definite mechanical obstruction is seen. 3. Otherwise, no other significant changes compared to the prior study. Andi Luna MD Brain MRI 06/15/16 Signed Impressions: Service Date/Time: Wednesday, June 15, 2016 09:10 - CONCLUSION: No acute abnormality seen. 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 Reginaldo Cain MD Head Magnetic Resonance Angiography 06/14/16 Signed Impressions: Service Date/Time: Tuesday, June 14, 2016 18:23 - CONCLUSION: No evidence of vessel truncation or aneurysm. Simone Graham MD Liver Ultrasound 06/13/16 Signed Impressions: Service Date/Time: Monday, June 13, 2016 09:42 - CONCLUSION: 1. Small amount free fluid identified medial to the lower pole of the right kidney. 2. Slight increased hepatic echotexture suggesting some degree of fatty infiltration. 3. Please note the body and tail of the pancreas are obscured by overlying bowel gas. The head neck and uncinate process are sonographically intact. Mauro Leslie MD Head CT 06/12/16 1657 Signed Impressions: Service Date/Time: May 21:37 - CONCLUSION: Unremarkable study. Jose Martinez MD Renal Ultrasound 06/12/16 Signed Impressions: Service Date/Time: May 23:51 - CONCLUSION: 1. Mild pelvocaliectasis on the right. No hydronephrosis involving either kidney. Simone Woody Jr., MD Chest CT 06/12/16 Signed Impressions: Service Date/Time: May 21:39 - CONCLUSION: Right upper lobe parenchymal process may represent pneumonia, however follow up is suggested with repeat noncontrast chest CT in 2-4 weeksafter appropriate clinical therapy. Jose Martinez MD Objective Remarks GENERAL: 56-year-old female, eyes and mouth are open on ventilator via trach. SKIN: Warm and dry. No rash HEAD: Normocephalic. EYES: Pallor present, No scleral icterus. No injection or drainage. NECK: Supple, trachea midline. CARDIOVASCULAR: Tachycardic, RR. S1, S2 no S4. Without murmurs, gallops, or rubs. RESPIRATORY: Transmitted upper airway sounds. Diminished breath sounds in bases.. No wheezing noted GASTROINTESTINAL: Abdomen soft, non-tender, nondistended. Noted PEG clean dry and intact MUSCULOSKELETAL: No deformities. Dorsalis pedis posterior be else's are bilaterally palpable no decubitus ulcer EXTREMITIES: No significant peripheral edema NEURO: Eyes are open, mouth is open. Positive gag with trach suctioning. Withdraws to pain. A/P Assessment and Plan Neuro: Encephalopathy Left basal ganglia/IC CVA On no sedation. Monitor neuro status and avoid any sedatives. CT brain: No acute findings. UDS+ +Benzos MRA brain 06/14- Unremarkable. MRI brain 06/14 revealed lacunar infarct left basal ganglia left posterior and internal capsule s/p LP showed clear CSF and 15 WBC. EEG: Bihemispheric slowing, small sharp waves b/l Neuro is following- Dr. Boggs, On Keppra 500mg by PEG Q12 Continue Lyrica 25 mg twice a day encircling 100 mg by mouth daily/home medications Continue baclofen 10 mg 3 times a day for muscle spasms Continue as needed fentanyl 50 mcg f as needed or pain management Pulm: Vent dependent respiratory failure Acute hypoxemic respiratory failure Probable aspiration/HCAP with R volume loss Continue with vent support keep sat >92% Bronchodilators every 6 hours and as needed, ICU vent bundle. s/p perc trach placed 07/03, 8.[address] Shankar Pulm toilet, trach care, Continue CPAP/TP's trials as cherie CXR 07/14- No acute disease. CV: Hypertension Monitor HR and BP keep MAP>65mmHg. On Lopressor 50 mg Q6 for HR/BP control Norvasc 5mg PO daily/home medication : Monitor renal function, I/O's, avoid nephrotoxins. Electrolytes replacement per protocol. Renal US: No hydronephrosis. Renal has followed- Dr. Corral GI/liver: Gastroesophageal reflux disease On Pepcid 20 milligrams by PEG qhs, tube feeds with Glucerna 1.5@60ml/hr Monitor LFT's (resolved), US liver: Fatty liver. Elevated urinary copper - GI is following. CT abdomen/pelvis 06/17- findings suggestive of adynamic ileus. No mechanical obstruction. On Reglan 5mg Iv q8 PRN, 06/[address] Davis ID: Staph aureus pneumonia Enterococcus species UTI - Continue abx ( Cipro) per ID, monitor for signs of infections ( Fever, WBC) --Ciff PCR negative on 07/18 Pertinent cultures: 06/12 Urine cx: E.coli 06/12 BC: No growth 06/12 CSG: NGTD 06/15 urine: E coli, sputum: MSSA 06/26: Blood sputum negative and urine cultures Pseudomonas 06/27 -bronchoscopy no growth pro-calcitonin level 0.23 on 07/13, blood cultures, urine cxs from 07/13- NGTD Urine cx 07/14 Enterobacter, Group D enterococcus, Follow up on urine cx from 07/21 revealed C. albicans and enterococcus species including faecalis Start on Cipro 500 twice a day until 07/26 and Diflucan 100 daily per ID Heme: Normocytic anemia Leukocytosis Monitor CBC Hep plt ab negative. 06/28-Transfused 2 units of PRBCs Endo: SSI for glycemic control, TSH level: 2.5 GI Prophylaxis with Pepcid DVT prophylaxis with SCD's, Heparin SQ 07/14 Doppler US LE negative for DVT Palliative care Dr. Venegas, following to assist with deciding goals of therapy. Patient's wishes to continue full CODE STATUS at this time, and continued aggressive treatment/therapies. Case management for LTAC placement Dispo: Level 2 Patient is stable from a critical care medicine standpoint. We'll consult pulmonology and assign care to hospitalist in a.m. 07/25. Dung Jeffries MD Jul 24, 2016 12:33
[2016-07-24] MEDS: RESP: ALBUTEROL 2.5 MG/IPRATROPIUM 0.5 MG NEB (SCH) NEB ×2 (16:25→21:41)
[2016-07-25] VITALS (8 sets, daily range): BP systolic 106–130; BP diastolic 53–74; PULSE 110–126; RESP 20–27; TEMP 98.3–99.5; O2SAT 93–100
[2016-07-25] MEDS: METOPROLOL TARTRATE 50 MG TAB PO SCH ×5 (00:55→23:49)
[2016-07-25] MEDS: RESP: ALBUTEROL 2.5 MG/IPRATROPIUM 0.5 MG NEB (SCH) NEB ×4 (03:30→20:16)
[2016-07-25] MEDS: CHLORHEXIDINE GLUCONATE 2 % 1 PACK (2 CLOTHS) TOP SCH (04:00)
[2016-07-25] MEDS: NYSTATIN 100,000 U/GM PWD 15 GM BTL TOPICAL SCH ×3 (06:00→21:39)
[2016-07-25 06:01] LABS: AUTOMATED NEUTROPHIL # 5.5 TH/MM3 (1.8-7.7); BASOPHIL % 0.2 % (0.0-2.0); EOSINOPHIL % 0.3 % (0.0-4.0); HEMATOCRIT 33.5 % (35.0-46.0); HEMO FLAGS DIFF FINAL; MEAN CELL VOLUME 82.5 FL (80.0-100.0); MEAN CORPUSCULAR HEMOGLOBIN 27.3 PG (27.0-34.0); MEAN CORPUSCULAR HGB CONC 33.1 % (32.0-36.0); MONO % 6.6 % (0.0-8.0); NEUT % 67.9 % (16.0-70.0); PLATELET COUNT 294 TH/MM3 (150-450); RED BLOOD COUNT 4.06 MIL/MM3 (4.00-5.30)
[2016-07-25 06:37] LABS: ALT (GPT) 22 U/L (10-53); ANION GAP 6 MEQ/L (5-15); AST (GOT) 11 U/L (15-37); BICARBONATE 29.9 MEQ/L (21.0-32.0); BLOOD UREA NITROGEN 18 MG/DL (7-18); CHLORIDE 103 MEQ/L (98-107); GLOMERULAR FILTRATION RATE 171 ML/MIN (>89); MAGNESIUM 2.3 MG/DL (1.5-2.5); POTASSIUM 4.3 MEQ/L (3.5-5.1); SODIUM (NA) 139 MEQ/L (136-145)
[2016-07-25 06:39] LABS: ALKALINE PHOSPHATASE 134 U/L (45-117); TOTAL BILIRUBIN ADULT 0.3 MG/DL (0.2-1.0)
--- NOTE | 2016-07-25 06:42 | RADRPT ---
EXAM DATE/TIME: 07/25/2016 05:26 [facility] COMPARISON: CHEST SINGLE AP, July 14, 2016, 4:23. INDICATIONS : Evaluate for respiratory failure. MEDICAL HISTORY : Stroke. SURGICAL HISTORY : None. ENCOUNTER: Subsequent ACUITY: 2 days PAIN SCORE: Non-responsive. LOCATION: chest FINDINGS: The cardiac silhouette is normal in transverse diameter. The lungs are free of acute parenchymal opac ity. No effusions are identified. A tracheostomy tube is in place in the midline. CONCLUSION: 1. No acute cardiopulmonary disease. Deshaun La MD on July 25, 2016 at 6:41 Board Certified Radiologist. This report was verified electronically.
[2016-07-25] MEDS: CHLORHEXIDINE 0.12% (ORAL KIT) 15 ML CUP MT SCH ×2 (08:00→21:39)
[2016-07-25] MEDS: SODIUM CHLORIDE 0.9% FLUSH 10 ML FLUSH IV FLUSH SCH ×2 (09:00→21:39)
[2016-07-25] MEDS: PREGABALIN 75 MG CAP PO SCH ×2 (09:48→21:39)
[2016-07-25] MEDS: amLODIPine BESYLATE 5 MG TAB PO SCH (09:48)
[2016-07-25] MEDS: HEPARIN SODIUM - SQ 10,000 UNITS/ML VIAL SQ SCH ×2 (09:48→21:40)
[2016-07-25] MEDS: FLUCONAZOLE 100 MG TAB PO SCH (09:48)
[2016-07-25] MEDS: FAMOTIDINE 20 MG TAB NG SCH (09:48)
[2016-07-25] MEDS: levETIRAcetam 500 MG/5 ML UDC NG SCH ×2 (09:48→21:39)
[2016-07-25] MEDS: BACLOFEN 10 MG TAB PO SCH ×3 (09:48→18:05)
[2016-07-25] MEDS: CIPROFLOXACIN 500 MG TAB PO SCH ×2 (09:48→21:39)
--- NOTE | 2016-07-25 14:06 | HHI.PR ---
Subjective Remarks T-piece in place. pt answers w yes and no by shaking her head. denies any pain Objective Vitals Vital Signs Date Time Temp Pulse Resp B/P Pulse Ox O2 Delivery O2 Flow Rate FiO2 07/25/16 12:00 98.3 112 23 112/69 93 07/25/16 12:00 28 07/25/16 08:47 100 T-piece 5.00 28 07/25/16 08:00 28 07/25/16 08:00 98.6 113 23 118/69 93 07/25/16 04:00 99.1 125 21 106/67 100 07/25/16 04:00 28 07/25/16 00:00 98.9 124 20 120/71 100 07/25/16 00:00 28 07/25/16 00:00 28 07/24/16 21:41 100 T-piece 6.00 28 07/24/16 20:00 98.6 113 23 118/69 93 07/24/16 20:00 28 07/24/16 20:00 113 07/24/16 18:07 110 07/24/16 17:27 96 T-piece 6.00 28 07/24/16 16:00 100.1 115 22 130/74 100 07/24/16 16:00 28 07/24/16 16:00 109 I/O 07/24/16 07/24/16 07/24/16 07/25/16 07/25/16 07/25/16 07:00 15:00 23:00 07:00 15:00 23:00 Intake Total 458 ml 470 ml 572 ml 551 ml Output Total 350 ml 500 ml 400 ml 400 ml Balance 108 ml -30 ml 172 ml 151 ml Tube Feeding 398 ml 350 ml 422 ml 401 ml Other 60 ml 120 ml 150 ml 150 ml Output Urine Total 300 ml 350 ml 325 ml 325 ml Stool Total 50 ml 150 ml 75 ml 75 ml Result Diagram: 07/25/1651907/25/16519 Imaging Last Impressions Chest X-Ray 07/25/16599 Signed Impressions: Service Date/Time: Monday, July 25, 2016 05:26 - CONCLUSION: 1. No acute cardiopulmonary disease. Deshaun La MD Lower Extremity Ultrasound 07/14/16 0800 Signed Impressions: Service Date/Time: Thursday, July 14, 2016 10:47 - CONCLUSION: Negative exam with no evidence of deep venous thrombosis. Rico Pedraza MD Abdomen X-Ray 06/26/16 0000 Signed Impressions: Service Date/Time: June 13:08 - CONCLUSION: 1. Nasogastric tube in good position. Benign-appearing bowel gas pattern. Jd Underwood MD Abdomen/Pelvis CT 06/17/16 0000 Signed Impressions: Service Date/Time: Friday, June 17, 2016 04:12 - CONCLUSION: 1. New bibasilar atelectasis. 2. There is some mild dilatation of the small bowel. There is a mild to moderate distention of the colon down to the rectum suggestive of a diffuse adynamic ileus. No definite mechanical obstruction is seen. 3. Otherwise, no other significant changes compared to the prior study. Andi Luna MD Brain MRI 06/15/16 0000 Signed Impressions: Service Date/Time: Wednesday, June 15, 2016 09:10 - CONCLUSION: No acute abnormality seen. 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 Reginaldo Cain MD Head Magnetic Resonance Angiography 06/14/16 0000 Signed Impressions: Service Date/Time: Tuesday, June 14, 2016 18:23 - CONCLUSION: No evidence of vessel truncation or aneurysm. Simone Graham MD Liver Ultrasound 06/13/16 0000 Signed Impressions: Service Date/Time: Monday, June 13, 2016 09:42 - CONCLUSION: 1. Small amount free fluid identified medial to the lower pole of the right kidney. 2. Slight increased hepatic echotexture suggesting some degree of fatty infiltration. 3. Please note the body and tail of the pancreas are obscured by overlying bowel gas. The head neck and uncinate process are sonographically intact. Mauro Leslie MD Head CT 06/12/16 1657 Signed Impressions: Service Date/Time: May 21:37 - CONCLUSION: Unremarkable study. Jose Martinez MD Renal Ultrasound 06/12/16 0000 Signed Impressions: Service Date/Time: May 23:51 - CONCLUSION: 1. Mild pelvocaliectasis on the right. No hydronephrosis involving either kidney. Simone Woody Jr., MD Chest CT 06/12/16 0000 Signed Impressions: Service Date/Time: May 21:39 - CONCLUSION: Right upper lobe parenchymal process may represent pneumonia, however follow up is suggested with repeat noncontrast chest CT in 2-4 weeksafter appropriate clinical therapy. Jose Martinez MD Objective Remarks GENERAL: 56-year-old female, eyes and mouth are open on ventilator via trach. CARDIOVASCULAR: Tachycardic, RR. Without murmurs. RESPIRATORY: Transmitted upper airway sounds. Diminished breath sounds in bases. No wheezing noted GASTROINTESTINAL: Abdomen soft, non-tender, nondistended. Noted PEG clean dry and intact MUSCULOSKELETAL: contractures noted in her hands. EXTREMITIES: No significant peripheral edema NEURO: Eyes are open, mouth is open. she does seems to shake her head when asked a question, and some movement noted in feet A/P Assessment and Plan Encephalopathy Left basal ganglia/IC CVA On no sedation. Monitor neuro status and avoid any sedatives. CT brain: No acute findings. UDS+ +Benzos MRA brain 06/14- Unremarkable. MRI brain 06/14 revealed lacunar infarct left basal ganglia left posterior and internal capsule s/p LP showed clear CSF and 15 WBC. EEG: Bihemispheric slowing, small sharp waves b/l Neuro on case- Dr. Boggs, On Keppra 500mg by PEG Q12 Continue Lyrica 25 mg twice a day encircling 100 mg by mouth daily/home medications Continue baclofen 10 mg 3 times a day for muscle spasms Continue as needed fentanyl 50 mcg f as needed or pain management Pulm: Vent dependent respiratory failure Acute hypoxemic respiratory failure Probable aspiration/HCAP with R volume loss Continue with vent support keep sat >92% Bronchodilators every 6 hours and as needed, ICU vent bundle. s/p perc trach placed 07/03, 8.[address] Shankar Pulm toilet, trach care, Continue CPAP/TP's trials as cherie CXR 07/14- No acute disease. CV: Hypertension Monitor HR and BP keep MAP>65mmHg. On Lopressor 50 mg Q6 for HR/BP control Norvasc 5mg PO daily/home medication : Monitor renal function, I/O's, avoid nephrotoxins. Electrolytes replacement per protocol. Renal US: No hydronephrosis. Renal has followed- Dr. Corral GI/liver: Gastroesophageal reflux disease On Pepcid 20 milligrams by PEG qhs, tube feeds with Glucerna 1.5@60ml/hr Monitor LFT's (resolved), US liver: Fatty liver. Elevated urinary copper - GI is following. CT abdomen/pelvis 06/17- findings suggestive of adynamic ileus. No mechanical obstruction. On Reglan 5mg Iv q8 PRN, 06/[address] Davis ID: Staph aureus pneumonia Enterococcus species UTI - Continue abx ( Cipro) per ID, monitor for signs of infections ( Fever, WBC) --Ciff PCR negative on 07/18 Pertinent cultures: 06/12 Urine cx: E.coli 06/12 BC: No growth 06/12 CSG: NGTD 06/15 urine: E coli, sputum: MSSA 06/26: Blood sputum negative and urine cultures Pseudomonas 06/27 -bronchoscopy no growth pro-calcitonin level 0.23 on 07/13, blood cultures, urine cxs from 07/13- NGTD Urine cx 07/14 Enterobacter, Group D enterococcus, Follow up on urine cx from 07/21 revealed C. albicans and enterococcus species including faecalis on Cipro 500 twice a day until 07/26 and Diflucan 100 daily per ID Heme: Normocytic anemia Leukocytosis Monitor CBC Hep plt ab negative. 06/28-Transfused 2 units of PRBCs Endo: SSI for glycemic control, TSH level: 2.5 GI Prophylaxis with Pepcid DVT prophylaxis with SCD's, Heparin SQ 07/14 Doppler US LE negative for DVT Discharge Planning Palliative care Dr. Venegas, following to assist with deciding goals of therapy. Patient's wishes to continue full CODE STATUS at this time, and continued aggressive treatment/therapies. Case management assisting w LTAC placement Felipa Morrow MD Jul 25, 2016 14:06
--- NOTE | 2016-07-25 19:37 | MB ---
cc: Celena ZACARIAS M.D. DATE OF CONSULTATION 07/25/16 REASON FOR CONSULTATION Respiratory failure and tracheostomy management. HISTORY OF PRESENT ILLNESS This is a 56 year old lady who was initially brought to the emergency room with altered mental status and severe hypoxia and fever. The patient has had a prior history for a CVA and apparently was feeling poorly and became somewhat obtunded, unable to communicate and thus was brought by [facility] to the emergency room. In the emergency department, she was hypoxic and was on 100% non-rebreather mask, but subsequently had to be intubated since her GCS score was six. The patient had to be mechanically ventilated. She was placed on sedation and the patient also was noted to be having poor urine output with deteriorating renal functions. The patient then was treated with antibiotics and bronchodilators and remained intubated and attempts were made to wean her off the ventilator over the next several days. The patient, however, remained encephalopathic and poorly responsive. The patient did get weaned off the ventilator on 06/25/16 and has had been extubated. The patient had to be reintubated the following day and remained on ventilator support since then. A tracheostomy had to be performed as well as PEG tube feedings. Following tracheostomy on 07/03/2016, the patient was slowly weaned off the ventilator to C-PAP and subsequently to a T-bar and she is presently somewhat more responsive and does communicate weakly to some questions and is now on 30% FIO2 with a T-bar. Temperatures have been fluctuating between 99 and 101. Antibiotic therapy has been instituted. The patient did go back on ventilator support this past week, but presently on a T-bar and doing well. The chest x-ray done on 07/25 showed no active pulmonary infiltrates. The hemoglobin was 11 with a white count of 8.0 earlier today. PAST MEDICAL HISTORY 1. Hypertension 2. History for a CVA 3. Previous history for a 4. Partial hysterectomy. HABITS The patient does not smoke. No history of alcohol use. ALLERGIES No drug allergies are listed. FAMILY HISTORY Noncontributory REVIEW OF SYSTEMS The patient is unable to respond appropriately to questions but does sometimes try to talk. She is weak on the right side and has a brace on the arm. The left side is also weak, but she is able to move her fingers weakly. PHYSICAL EXAMINATION VITAL SIGNS: Blood pressure 128/80, pulse is 85, respirations 18, temperature 99.5. HEENT: Pupils reactive. Sclerae are not icteric. Throat is clear. Ears and nose - no inflammation. NECK: Supple with trache tube in place with no thyromegaly. CHEST: Equal movements with decreased breath sounds over the bases with occasional wheezes throughout both lung rosenthal. HEART: The heart sounds are irregular S1-S2 with no murmur. ABDOMEN: Soft, protuberant without masses. EXTREMITIES: Weakness of the extremities, mostly the right side, with muscle wasting. Babinski equivocal. Cranial nerves not tested RECTAL: Exam is deferred. SKIN: Dry and warm. IMPRESSION 1. Hypercapnic respiratory failure. 2. History of hypertension 3. History of CVA 4. Acute kidney injury with dehydration 5. Status post tracheostomy and PEG tube 6. Resolving acute kidney injury. PLAN The patient has been placed on T-bar at 30% FIO2, frequent tracheal toilet and suctioning to be done with lavage. Nebulized DuoNeb solution added three times daily. The patient will also receive physical therapy, active and passive. We will get a blood gas study on the T-bar and antibiotic therapy is being given per infectious disease service which we will continue. Hypertensive therapy has also been continued and anti seizure medications including Keppra. Heparin prophylaxis subcutaneously every 12 hours at 5000 units. The patient will be monitored closely for development of any pneumonia. Thank you, Dr. Mace, for this consultation. MD ELVIRA Swartz/ /6:55 PM /7:15 PM
[2016-07-25] MEDS: LABETALOL HCL 100 MG/20 ML VIAL IV PUSH PRN (22:39)
[2016-07-26] VITALS (8 sets, daily range): BP systolic 96–147; BP diastolic 60–83; PULSE 100–124; RESP 16–29; TEMP 98.6–99.2; O2SAT 99–100
[2016-07-26 04:31] LABS: BASOPHIL % 0.2 % (0.0-2.0); EOSINOPHIL # 0.1 TH/MM3 (0-0.4); EOSINOPHIL % 0.7 % (0.0-4.0); HEMATOCRIT 35.4 % (35.0-46.0); HEMO FLAGS DIFF FINAL; MEAN CELL VOLUME 83.9 FL (80.0-100.0); MEAN CORPUSCULAR HEMOGLOBIN 27.6 PG (27.0-34.0); MEAN CORPUSCULAR HGB CONC 32.8 % (32.0-36.0); MONO % 7.3 % (0.0-8.0); NEUT % 65.8 % (16.0-70.0); PLATELET COUNT 266 TH/MM3 (150-450); RED BLOOD COUNT 4.22 MIL/MM3 (4.00-5.30); RED CELL DISTRIBUTION WIDTH 17.1 % (11.6-17.2); WHITE BLOOD COUNT 7.6 TH/MM3 (4.0-11.0)
[2016-07-26 04:38] LABS: BICARBONATE 31.2 MEQ/L (21.0-32.0); POTASSIUM 4.3 MEQ/L (3.5-5.1)
--- NOTE | 2016-07-26 07:49 | HHI.PR ---
Subjective Remarks Arousable, moves legs with stimulation. No events reported overnight. No change. Objective Vitals Vital Signs Date Time Temp Pulse Resp B/P Pulse Ox O2 Delivery O2 Flow Rate FiO2 07/26/16 04:00 116 07/26/16 04:00 98.6 116 20 114/63 99 07/26/16 04:00 28 07/26/16 00:00 28 07/26/16 00:00 124 07/26/16 00:00 99.2 124 29 147/83 100 07/25/16 20:14 99 T-piece 5.00 28 07/25/16 20:00 28 07/25/16 20:00 126 07/25/16 20:00 99.5 126 27 130/74 99 07/25/16 16:00 28 07/25/16 16:00 98.8 110 22 106/53 93 07/25/16 12:00 98.3 112 23 112/69 93 07/25/16 12:00 28 07/25/16 08:47 100 T-piece 5.00 28 07/25/16 08:00 28 07/25/16 08:00 98.6 113 23 118/69 93 I/O 07/25/16 07/25/16 07/25/16 07/26/16 07/26/16 07/26/16 07:00 15:00 23:00 07:00 15:00 23:00 Intake Total 551 ml 450 ml 464 ml 515 ml Output Total 400 ml 452 ml 650 ml 300 ml Balance 151 ml -2 ml -186 ml 215 ml Tube Feeding 401 ml 450 ml 344 ml 395 ml Other 150 ml 120 ml 120 ml Output Urine Total 325 ml 352 ml 550 ml 250 ml Stool Total 75 ml 100 ml 100 ml 50 ml Result Diagram: 07/26/16 0357 07/26/16 0357 Imaging Last Impressions Chest X-Ray 07/25/16 0600 Signed Impressions: Service Date/Time: Monday, July 25, 2016 05:26 - CONCLUSION: 1. No acute cardiopulmonary disease. Deshaun La MD Lower Extremity Ultrasound 07/14/16 0800 Signed Impressions: Service Date/Time: Thursday, July 14, 2016 10:47 - CONCLUSION: Negative exam with no evidence of deep venous thrombosis. Rico Pedraza MD Abdomen X-Ray 5/4/17 0000 Signed Impressions: Service Date/Time: June 13:08 - CONCLUSION: 1. Nasogastric tube in good position. Benign-appearing bowel gas pattern. Jd Underwood MD Abdomen/Pelvis CT 06/17/16 0000 Signed Impressions: Service Date/Time: Friday, June 17, 2016 04:12 - CONCLUSION: 1. New bibasilar atelectasis. 2. There is some mild dilatation of the small bowel. There is a mild to moderate distention of the colon down to the rectum suggestive of a diffuse adynamic ileus. No definite mechanical obstruction is seen. 3. Otherwise, no other significant changes compared to the prior study. Andi Luna MD Brain MRI 06/15/16 Signed Impressions: Service Date/Time: Wednesday, June 15, 2016 09:10 - CONCLUSION: No acute abnormality seen. 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 Reginaldo Cain MD Head Magnetic Resonance Angiography 06/14/16 Signed Impressions: Service Date/Time: Tuesday, June 14, 2016 18:23 - CONCLUSION: No evidence of vessel truncation or aneurysm. Simone Graham MD Liver Ultrasound 06/13/16 Signed Impressions: Service Date/Time: Monday, June 13, 2016 09:42 - CONCLUSION: 1. Small amount free fluid identified medial to the lower pole of the right kidney. 2. Slight increased hepatic echotexture suggesting some degree of fatty infiltration. 3. Please note the body and tail of the pancreas are obscured by overlying bowel gas. The head neck and uncinate process are sonographically intact. Mauro Leslie MD Head CT 06/12/16 1657 Signed Impressions: Service Date/Time: May 21:37 - CONCLUSION: Unremarkable study. Jose Martinez MD Renal Ultrasound 06/12/16 Signed Impressions: Service Date/Time: May 23:51 - CONCLUSION: 1. Mild pelvocaliectasis on the right. No hydronephrosis involving either kidney. Simone Woody Jr., MD Chest CT 06/12/16 0000 Signed Impressions: Service Date/Time: May 21:39 - CONCLUSION: Right upper lobe parenchymal process may represent pneumonia, however follow up is suggested with repeat noncontrast chest CT in 2-4 weeksafter appropriate clinical therapy. Jose Martinez MD Objective Remarks GENERAL: 56-year-old female, eyes and mouth are open on ventilator via trach. CARDIOVASCULAR: Tachycardic, RR. Without murmurs. RESPIRATORY: Transmitted upper airway sounds. Diminished breath sounds in bases. No wheezing noted GASTROINTESTINAL: Abdomen soft, non-tender, nondistended. Noted PEG clean dry and intact MUSCULOSKELETAL: contractures noted in her hands. EXTREMITIES: No significant peripheral edema NEURO: Eyes are open, mouth is open. she does seems to shake her head when asked a question, and some movement noted in feet A/P Assessment and Plan Encephalopathy Left basal ganglia/IC CVA On no sedation. Monitor neuro status and avoid any sedatives. CT brain: No acute findings. UDS+ +Benzos MRA brain 06/14- Unremarkable. MRI brain 06/14 revealed lacunar infarct left basal ganglia left posterior and internal capsule s/p LP showed clear CSF and 15 WBC. EEG: Bihemispheric slowing, small sharp waves b/l Neuro on case- Dr. Boggs, On Keppra 500mg by PEG Q12 Continue Lyrica 25 mg twice a day encircling 100 mg by mouth daily/home medications Continue baclofen 10 mg 3 times a day for muscle spasms Continue as needed fentanyl 50 mcg f as needed for pain management Pulm: Vent dependent respiratory failure Acute hypoxemic respiratory failure Probable aspiration/HCAP with R volume loss Continue with vent support keep sat >92% Bronchodilators every 6 hours and as needed, ICU vent bundle. s/p perc trach placed 07/03, 8.[address] Shankar Pulm toilet, trach care, Continue CPAP/TP's trials as cherie CXR 07/14- No acute disease. CV: Hypertension Monitor HR and BP keep MAP>65mmHg. On Lopressor 50 mg Q6 for HR/BP control Norvasc 5mg PO daily/home medication : Monitor renal function, I/O's, avoid nephrotoxins. Electrolytes replacement per protocol. Renal US: No hydronephrosis. Renal has followed- Dr. Corral GI/liver: Gastroesophageal reflux disease On Pepcid 20 milligrams by PEG qhs, tube feeds with Glucerna 1.5@60ml/hr Monitor LFT's (resolved), US liver: Fatty liver. Elevated urinary copper - GI is following. CT abdomen/pelvis 06/17- findings suggestive of adynamic ileus. No mechanical obstruction. On Reglan 5mg Iv q8 PRN, 06/[address] Davis ID: Staph aureus pneumonia Enterococcus species UTI - Continue abx ( Cipro) per ID, monitor for signs of infections ( Fever, WBC) --Ciff PCR negative on 07/18 Pertinent cultures: 06/12 Urine cx: E.coli 06/12 BC: No growth 06/12 CSG: NGTD 06/15 urine: E coli, sputum: MSSA 06/26: Blood sputum negative and urine cultures Pseudomonas 06/27 -bronchoscopy no growth pro-calcitonin level 0.23 on 07/13, blood cultures, urine cxs from 07/13- NGTD Urine cx 07/14 Enterobacter, Group D enterococcus, Follow up on urine cx from 07/21 revealed C. albicans and enterococcus species including faecalis on Cipro 500 twice a day until 07/26 and Diflucan 100 daily per ID Heme: Normocytic anemia Leukocytosis Monitor CBC Hep plt ab negative. 06/28-Transfused 2 units of PRBCs Endo: SSI for glycemic control, TSH level: 2.5 GI Prophylaxis with Pepcid DVT prophylaxis with SCD's, Heparin SQ 07/14 Doppler US LE negative for DVT Discharge Planning Palliative care Dr. Venegas, following to assist with deciding goals of therapy. Patient's wishes to continue full CODE STATUS at this time, and continued aggressive treatment/therapies. Case management assisting w LTAC placement Anamika Luther MD Jul 26, 2016 07:49
[2016-07-26] MEDS: RESP: ALBUTEROL 2.5 MG/IPRATROPIUM 0.5 MG NEB (SCH) NEB ×4 (08:24→20:22)
[2016-07-26] MEDS: levETIRAcetam 500 MG/5 ML UDC NG SCH ×2 (09:07→21:12)
[2016-07-26] MEDS: HEPARIN SODIUM - SQ 10,000 UNITS/ML VIAL SQ SCH ×2 (09:07→21:12)
[2016-07-26] MEDS: FAMOTIDINE 20 MG TAB NG SCH (09:07)
[2016-07-26] MEDS: FLUCONAZOLE 100 MG TAB PO SCH (09:08)
[2016-07-26] MEDS: BACLOFEN 10 MG TAB PO SCH ×3 (09:08→17:35)
[2016-07-26] MEDS: amLODIPine BESYLATE 5 MG TAB PO SCH (09:08)
[2016-07-26] MEDS: PREGABALIN 75 MG CAP PO SCH ×2 (09:08→21:12)
[2016-07-26] MEDS: CHLORHEXIDINE 0.12% (ORAL KIT) 15 ML CUP MT SCH ×2 (09:08→21:14)
[2016-07-26] MEDS: CIPROFLOXACIN 500 MG TAB PO SCH (09:08)
[2016-07-26] MEDS: SODIUM CHLORIDE 0.9% FLUSH 10 ML FLUSH IV FLUSH SCH ×2 (09:09→21:12)
[2016-07-26] MEDS: NYSTATIN 100,000 U/GM PWD 15 GM BTL TOPICAL SCH ×3 (09:09→21:14)
[2016-07-26] MEDS: METOPROLOL TARTRATE 50 MG TAB PO SCH ×2 (13:49→17:35)
--- NOTE | 2016-07-26 15:30 | HHI.PR ---
Subjective Remarks Lethargic on a T Bar. Opens eyes , but has weakness of all limbs. Trach site OK Objective Vital Signs Date Time Temp Pulse Resp B/P Pulse Ox O2 Delivery O2 Flow Rate FiO2 07/26/16 08:28 100 T-piece 5.00 28 07/26/16 08:00 99.0 103 22 105/65 100 07/26/16 08:00 28 07/26/16 04:00 116 07/26/16 04:00 98.6 116 20 114/63 99 07/26/16 04:00 28 07/26/16 00:00 28 07/26/16 00:00 124 07/26/16 00:00 99.2 124 29 147/83 100 07/25/16 20:14 99 T-piece 5.00 28 07/25/16 20:00 28 07/25/16 20:00 126 07/25/16 20:00 99.5 126 27 130/74 99 07/25/16 16:00 28 07/25/16 16:00 98.8 110 22 106/53 93 I/O 07/25/16 07/25/16 07/25/16 07/26/16 07/26/16 07/26/16 07:00 15:00 23:00 07:00 15:00 23:00 Intake Total 551 ml 450 ml 464 ml 515 ml Output Total 400 ml 452 ml 650 ml 300 ml Balance 151 ml -2 ml -186 ml 215 ml Tube Feeding 401 ml 450 ml 344 ml 395 ml Other 150 ml 120 ml 120 ml Output Urine Total 325 ml 352 ml 550 ml 250 ml Stool Total 75 ml 100 ml 100 ml 50 ml Result Diagram: 07/26/16 0357 07/26/16 0357 Objective Remarks HEENT: Pupils reactive. Sclerae are not icteric. Throat is clear. Ears and nose - no inflammation. NECK: Supple with trach tube in place with no thyromegaly. CHEST: Equal movements with decreased breath sounds over the bases with occasional wheezes throughout both lung rosenthal. HEART: The heart sounds are irregular S1-S2 with no murmur. ABDOMEN: Soft, protuberant without masses. EXTREMITIES: Weakness of the extremities, mostly the right side, with muscle wasting. Babinski equivocal. Cranial nerves not tested RECTAL: Exam is deferred. SKIN: Dry and warm. Assessment and Plan Assessment and Plan IMPRESSION 1. Hypercapnic respiratory failure. 2. History of hypertension 3. History of CVA 4. Acute kidney injury with dehydration 5. Status post tracheostomy and PEG tube 6. Resolving acute kidney injury. Plan : 1. T Bar at 28 %. 2.Suction trach and lavage prn. 3. Nebs qid Duoneb. 4. PT evaluation. 5. Tube feeds at 60 CC 6. Transfer to tele floor. 7. Chest X ray on Thursday Celena Wakefield MD Jul 26, 2016 15:30
[2016-07-26] MEDS: CHLORHEXIDINE GLUCONATE 2 % 1 PACK (2 CLOTHS) TOP SCH (21:12)
[2016-07-27] VITALS (12 sets, daily range): BP systolic 100–134; BP diastolic 58–82; PULSE 96–121; RESP 18–26; TEMP 98.4–99.4; O2SAT 95–100
[2016-07-27] MEDS: LABETALOL HCL 100 MG/20 ML VIAL IV PUSH PRN (02:59)
[2016-07-27] MEDS: NYSTATIN 100,000 U/GM PWD 15 GM BTL TOPICAL SCH ×3 (05:13→21:06)
[2016-07-27] MEDS: METOPROLOL TARTRATE 50 MG TAB PO SCH ×5 (05:13→23:59)
[2016-07-27] MEDS: BACLOFEN 10 MG TAB PO SCH ×3 (07:39→17:45)
[2016-07-27] MEDS: SODIUM CHLORIDE 0.9% FLUSH 10 ML FLUSH IV FLUSH SCH ×2 (07:39→21:04)
[2016-07-27] MEDS: amLODIPine BESYLATE 5 MG TAB PO SCH (07:39)
[2016-07-27] MEDS: PREGABALIN 75 MG CAP PO SCH ×2 (07:39→21:04)
[2016-07-27] MEDS: FAMOTIDINE 20 MG TAB NG SCH (07:39)
[2016-07-27] MEDS: levETIRAcetam 500 MG/5 ML UDC NG SCH ×2 (07:39→21:04)
[2016-07-27] MEDS: FLUCONAZOLE 100 MG TAB PO SCH (07:40)
[2016-07-27] MEDS: HEPARIN SODIUM - SQ 10,000 UNITS/ML VIAL SQ SCH ×2 (07:40→21:04)
[2016-07-27] MEDS: CHLORHEXIDINE 0.12% (ORAL KIT) 15 ML CUP MT SCH ×2 (07:41→21:06)
[2016-07-27] MEDS: RESP: ALBUTEROL 2.5 MG/IPRATROPIUM 0.5 MG NEB (SCH) NEB ×4 (08:00→20:17)
--- NOTE | 2016-07-27 11:32 | HHI.PR ---
Subjective Remarks Follow-up for respiratory failure, encephalopathy, and basal ganglia infarct. Pt non-verbal, not participating in her own care. Per nursing, no acute issues have arisen in past 24 hours. Pt is reported to respond to loud verbal requests, yet compliance is sporadic. Vital signs reported to be stable. Objective Vitals Vital Signs Date Time Temp Pulse Resp B/P Pulse Ox O2 Delivery O2 Flow Rate FiO2 07/27/16 10:00 119 07/27/16 08:39 20 07/27/16 08:01 100 T-piece 6.00 28 07/27/16 08:00 106 07/27/16 08:00 28 07/27/16 08:00 99.0 106 24 114/71 100 07/27/16 04:00 98.9 121 26 134/82 100 07/27/16 00:00 98.4 115 23 107/68 100 07/26/16 20:22 100 T-piece 6.00 28 07/26/16 20:00 98.6 100 16 96/60 100 07/26/16 20:00 28 07/26/16 16:00 99.0 108 20 115/76 100 07/26/16 16:00 28 07/26/16 12:00 98.8 124 24 120/68 100 07/26/16 12:00 28 I/O 07/26/16 07/26/16 07/26/16 07/27/16 07/27/16 07/27/16 07:00 15:00 23:00 07:00 15:00 23:00 Intake Total 515 ml 750 ml 476 ml 504 ml Output Total 300 ml 260 ml 350 ml 450 ml Balance 215 ml 490 ml 126 ml 54 ml Tube Feeding 395 ml 600 ml 356 ml 444 ml Other 120 ml 150 ml 120 ml 60 ml Output Urine Total 250 ml 240 ml 250 ml 250 ml Stool Total 50 ml 20 ml 100 ml 200 ml Result Diagram: 07/26/167 07/26/16356 Imaging Last Impressions Chest X-Ray 07/25/16 06 Signed Impressions: Service Date/Time: Monday, July 25, 2016 05:26 - CONCLUSION: 1. No acute cardiopulmonary disease. Deshaun La MD Lower Extremity Ultrasound 07/14/16 0800 Signed Impressions: Service Date/Time: Thursday, July 14, 2016 10:47 - CONCLUSION: Negative exam with no evidence of deep venous thrombosis. Rico Pedraza MD Abdomen X-Ray 06/26/16 0000 Signed Impressions: Service Date/Time: June 13:08 - CONCLUSION: 1. Nasogastric tube in good position. Benign-appearing bowel gas pattern. Jd Underwood MD Abdomen/Pelvis CT 06/17/16 0000 Signed Impressions: Service Date/Time: Friday, June 17, 2016 04:12 - CONCLUSION: 1. New bibasilar atelectasis. 2. There is some mild dilatation of the small bowel. There is a mild to moderate distention of the colon down to the rectum suggestive of a diffuse adynamic ileus. No definite mechanical obstruction is seen. 3. Otherwise, no other significant changes compared to the prior study. Andi Luna MD Brain MRI 06/15/16 0000 Signed Impressions: Service Date/Time: Wednesday, June 15, 2016 09:10 - CONCLUSION: No acute abnormality seen. 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 Reginaldo Cain MD Head Magnetic Resonance Angiography 06/14/16 0000 Signed Impressions: Service Date/Time: Tuesday, June 14, 2016 18:23 - CONCLUSION: No evidence of vessel truncation or aneurysm. Simone Graham MD Liver Ultrasound 06/13/16 0000 Signed Impressions: Service Date/Time: Monday, June 13, 2016 09:42 - CONCLUSION: 1. Small amount free fluid identified medial to the lower pole of the right kidney. 2. Slight increased hepatic echotexture suggesting some degree of fatty infiltration. 3. Please note the body and tail of the pancreas are obscured by overlying bowel gas. The head neck and uncinate process are sonographically intact. Mauro Leslie MD Head CT 06/12/16 1657 Signed Impressions: Service Date/Time: May 21:37 - CONCLUSION: Unremarkable study. Jose Martinez MD Renal Ultrasound 06/12/16 0000 Signed Impressions: Service Date/Time: May 23:51 - CONCLUSION: 1. Mild pelvocaliectasis on the right. No hydronephrosis involving either kidney. Simone Woody Jr., MD Chest CT 06/12/16 0000 Signed Impressions: Service Date/Time: May 21:39 - CONCLUSION: Right upper lobe parenchymal process may represent pneumonia, however follow up is suggested with repeat noncontrast chest CT in 2-4 weeksafter appropriate clinical therapy. Jose Martinez MD Objective Remarks GENERAL: Pt encountered laying a bed, eyes open, mouth agape, NAD SKIN: Warm and dry. HEAD: Normocephalic. EYES: No scleral icterus. No injection or drainage. NECK: Supple, trachea midline. No lymphadenopathy. T-Piece in place. CARDIOVASCULAR: Tachycardic rate with regular rhythm without murmurs, gallops, or rubs. RESPIRATORY: Breath sounds equal bilaterally. No accessory muscle use. On ventilator. GASTROINTESTINAL: Abdomen soft, non-tender, nondistended. G tube present. MUSCULOSKELETAL: No cyanosis, or edema. Neurological: Pt verbally non-responsive, limited response to verbal commands, spontaneous movement of both lower extremities and left hand; right hand in splint to prevent contracture. Medications and IVs Current Medications Medications (Trade) Dose Ordered Sig/Kiel Route Start Time Stop Time Status Last Admin (NS Flush) 2 ml UNSCH PRN IV FLUSH 06/12/16 18:00 07/17/16 09:10 (NS Flush) 2 ml BID IV FLUSH 06/12/16 21:00 07/27/16 07:39 Miscellaneous Information 1 Q361D XX 06/12/16 18:00 (Chlorhexidine 2% Cloth) Taper DAILY@04 TOP 06/13/16 04:00 06/09/17 03:59 07/24/16 00:04 (Chlorhexidine 2% Cloth) 3 pack UNSCH PRN TOP 06/12/16 18:00 (Lyrica) 75 mg BID PO 06/12/16 21:00 07/27/16 07:39 (Zoloft) 100 mg DAILY PO 06/12/16 20:15 Hold 06/15/16 09:41 Baclofen 10 mg 10 mg TID PO 06/12/16 20:15 07/27/16 07:39 Potassium Chloride 100 ml @ 50 mls/hr Q2H PRN IV 06/13/16 16:00 07/04/16 05:55 (KCl 20 Meq Premix Inj) 100 ml @ 50 mls/hr Q2H PRN IV 06/13/16 16:00 Potassium Bicarb/ Potassium Chloride 50 meq 50 meq UNSCH PRN PO 06/13/16 16:00 Potassium Chloride 100 ml @ 25 mls/hr UNSCH PRN IV 06/13/16 16:00 06/20/16 13:33 Potassium Chloride 100 ml @ 50 mls/hr Q2H PRN IV 06/13/16 16:00 06/27/16 13:42 (Magnesium Sulfate Inj/NS Inj) 100 ml @ 50 mls/hr UNSCH PRN IV 06/13/16 16:00 Magnesium Oxide 800 mg 800 mg UNSCH PRN PO 06/13/16 16:00 (Magnesium Sulfate Inj/NS Inj) 100 ml @ 50 mls/hr UNSCH PRN IV 06/13/16 16:00 Potassium Phosphate 2000 mg 2,000 mg Q4H PRN PO 06/13/16 16:00 (Sodium Phosphate Inj/NS 250 ml Inj) 250 ml @ 42 mls/hr UNSCH PRN IV 06/13/16 16:00 06/18/16 09:34 Potassium Phosphate 2000 mg 2,000 mg UNSCH PRN PO/TUBE 06/13/16 16:00 (Potassium Phosphate Inj/NS 250 ml Inj) 260 ml @ 42 mls/hr UNSCH PRN IV 06/13/16 16:00 (Reglan Inj) 5 mg Q8H PRN IV PUSH 06/16/16 09:15 (Tylenol 650 Mg/ 20 ml Liq) 650 mg Q6H PRN PO 06/20/16 00:45 07/11/16 16:26 (Cathflo Activase Inj) 2 mg Q2H PRN INTRACATH 06/20/16 18:45 07/06/16 11:26 (Peridex 0.12% Liq) 15 ml BID@08,20 MT 06/26/16 20:00 07/27/16 07:41 (Pill Splitter) 1 ea UNSCH PRN OTHER 06/27/16 10:45 (Mycostatin Powder) 1 applic Q8HR TOPICAL 07/01/16 22:00 07/27/16 05:13 (Heparin Inj) 5,000 units Q12HR SQ 07/04/16 09:45 07/27/16 07:40 (Apresoline Inj) 20 mg Q4H PRN IV PUSH 07/05/16 17:00 07/10/16 23:29 (fentaNYL INJ) 50 mcg Q4H PRN IV 07/05/16 18:00 07/17/16 18:55 (Trandate Inj) 10 mg Q6H PRN IV PUSH 07/07/16 16:30 07/27/16 02:59 (Keppra Liq) 500 mg Q12HR NG 07/08/16 21:00 07/27/16 07:39 (Pepcid) 20 mg DAILY NG 07/09/16 09:00 07/27/16 07:39 (Norvasc) 5 mg DAILY PO 07/09/16 09:00 07/27/16 07:39 (Lopressor) 50 mg Q6HR PO 07/12/16 18:00 07/27/16 05:13 (Diflucan) 100 mg DAILY PO 07/22/16 13:00 07/27/16 07:40 Urinary Catheter: Yes Assessment to: Continue Cortes insert reason: Prolonged Immobilization A/P Assessment and Plan 56-year-old female brought in by EMS emergently as altered mental status, hypoxia and temperature 104. Patient has a history of CVA many years ago. Per caregiver she didn't feel well since yesterday and wasn't taking any of medications including baclofen. Patient was unable to communicate due to her altered mental status. As per EMS not much history was available from the family but she has history of CVA as baseline but communicates. In the emergency department patient's oxygen saturation was low 70s upon EMS arrival. They had her on oxygen via nonrebreather and sats of 93%. GCS was 6 and she was intubated by ER attending for an airway protection. Encephalopathy Left basal ganglia/IC CVA On no sedation. Monitor neuro status and avoid any sedatives. CT brain: No acute findings. UDS+ +Benzos MRA brain 06/14- Unremarkable. MRI brain 06/14 revealed lacunar infarct left basal ganglia left posterior and internal capsule s/p LP showed clear CSF and 15 WBC. EEG: Bihemispheric slowing, small sharp waves b/l Neuro on case- Dr. Boggs, On Keppra 500mg by PEG Q12 Continue Lyrica 25 mg twice a day encircling 100 mg by mouth daily/home medications Continue baclofen 10 mg 3 times a day for muscle spasms Continue as needed fentanyl 50 mcg f as needed for pain management Pulm: Vent dependent respiratory failure Acute hypoxemic respiratory failure Probable aspiration/HCAP with R volume loss Continue with vent support keep sat >92% Bronchodilators every 6 hours and as needed, ICU vent bundle. s/p perc trach placed 07/03, 8.[address] Shankar Pulm toilet, trach care, Continue CPAP/TP's trials as cherie CXR 07/14- No acute disease. CV: Hypertension Monitor HR and BP keep MAP>65mmHg. On Lopressor 50 mg Q6 for HR/BP control Norvasc 5mg PO daily/home medication : Monitor renal function, I/O's, avoid nephrotoxins. Electrolytes replacement per protocol. Renal US: No hydronephrosis. Renal has followed- Dr. Corral GI/liver: Gastroesophageal reflux disease On Pepcid 20 milligrams by PEG qhs, tube feeds with Glucerna 1.5@60ml/hr Monitor LFT's (resolved), US liver: Fatty liver. Elevated urinary copper - GI is following. CT abdomen/pelvis 06/17- findings suggestive of adynamic ileus. No mechanical obstruction. On Reglan 5mg Iv q8 PRN, 06/[address] Davis ID: Staph aureus pneumonia Enterococcus species UTI - Continue abx ( Cipro) per ID, monitor for signs of infections ( Fever, WBC) --Ciff PCR negative on 07/18 Pertinent cultures: 06/12 Urine cx: E.coli 06/12 BC: No growth 06/12 CSG: NGTD 06/15 urine: E coli, sputum: MSSA 06/26: Blood sputum negative and urine cultures Pseudomonas 06/27 -bronchoscopy no growth pro-calcitonin level 0.23 on 07/13, blood cultures, urine cxs from 07/13- NGTD Urine cx 07/14 Enterobacter, Group D enterococcus, Follow up on urine cx from 07/21 revealed C. albicans and enterococcus species including faecalis on Cipro 500 twice a day until 07/26 and Diflucan 100 daily per ID Heme: Normocytic anemia Leukocytosis Monitor CBC Hep plt ab negative. 06/28-Transfused 2 units of PRBCs Endo: SSI for glycemic control, TSH level: 2.5 GI Prophylaxis with Pepcid DVT prophylaxis with SCD's, Heparin SQ 07/14 Doppler US LE negative for DVT Discussed case with pt's RN (Jaden) and Dr. Luther Discharge Planning Palliative care Dr. Venegas, following to assist with deciding goals of therapy. Patient's wishes to continue full CODE STATUS at this time, and continued aggressive treatment/therapies. Case management assisting w LTAC placement Marlo Deshpande Jr. Jul 27, 2016 11:32
--- NOTE | 2016-07-27 15:22 | HHI.PR ---
Subjective Remarks Lethargic on a T Bar at 28 %. Opens eyes and responds to commands , but has weakness of all limbs. Trach site OK. has secretions. Objective Vital Signs Date Time Temp Pulse Resp B/P Pulse Ox O2 Delivery O2 Flow Rate FiO2 07/27/16 12:00 28 07/27/16 12:00 121 07/27/16 12:00 99.2 121 20 126/80 100 07/27/16 10:00 119 07/27/16 08:39 20 07/27/16 08:01 100 T-piece 6.00 28 07/27/16 08:00 106 07/27/16 08:00 28 07/27/16 08:00 99.0 106 24 114/71 100 07/27/16 04:00 98.9 121 26 134/82 100 07/27/16 00:00 98.4 115 23 107/68 100 07/26/16 20:22 100 T-piece 6.00 28 07/26/16 20:00 98.6 100 16 96/60 100 07/26/16 20:00 28 07/26/16 16:00 99.0 108 20 115/76 100 07/26/16 16:00 28 I/O 07/26/16 07/26/16 07/26/16 07/27/16 07/27/16 07/27/16 07:00 15:00 23:00 07:00 15:00 23:00 Intake Total 515 ml 750 ml 476 ml 504 ml Output Total 300 ml 260 ml 350 ml 450 ml Balance 215 ml 490 ml 126 ml 54 ml Tube Feeding 395 ml 600 ml 356 ml 444 ml Other 120 ml 150 ml 120 ml 60 ml Output Urine Total 250 ml 240 ml 250 ml 250 ml Stool Total 50 ml 20 ml 100 ml 200 ml Result Diagram: 07/26/16 0357 07/26/16 0357 Objective Remarks HEENT: Pupils reactive. Sclerae are not icteric. Throat is clear. Ears and nose - no inflammation. NECK: Supple with trach tube in place with no thyromegaly. CHEST: Equal movements with decreased breath sounds over the bases with occasional wheezes over both lung rosenthal. HEART: The heart sounds are irregular S1-S2 with no murmur. ABDOMEN: Soft, protuberant without masses. EXTREMITIES: Weakness of the extremities, mostly the right side, but moves feet at times.Has muscle wasting. Cranial nerves not tested RECTAL: Exam is deferred. SKIN: Dry and warm. Assessment and Plan Assessment and Plan IMPRESSION 1. Hypercapnic respiratory failure. 2. History of hypertension 3. History of CVA 4. Acute kidney injury with dehydration 5. Status post tracheostomy and PEG tube 6. Resolving acute kidney injury. Plan : 1. T Bar at 28 %. 2.Suction trach and lavage prn. 3. Nebs qid Duoneb. 4. PT evaluation. 5. Tube feeds at 60 CC 6. Transfer to tele floor. 7. Chest X ray on Thursday 8. PT and OT evaluation Celena Wakefield MD Jul 27, 2016 15:22
[2016-07-27] MEDS: CHLORHEXIDINE GLUCONATE 2 % 1 PACK (2 CLOTHS) TOP SCH (21:08)
[2016-07-28] VITALS (17 sets, daily range): BP systolic 102–113; BP diastolic 58–72; PULSE 96–120; RESP 20–27; TEMP 98.9–99.5; O2SAT 99–100
[2016-07-28] MEDS: NYSTATIN 100,000 U/GM PWD 15 GM BTL TOPICAL SCH ×3 (05:28→20:46)
[2016-07-28] MEDS: METOPROLOL TARTRATE 50 MG TAB PO SCH ×3 (05:28→16:33)
--- NOTE | 2016-07-28 08:11 | HHI.PR ---
Subjective Remarks Patient with eyes opened, moving arms and legs involuntarily. Doesn't follow commands. Appears in nad. VSS Objective Vitals Vital Signs Date Time Temp Pulse Resp B/P Pulse Ox O2 Delivery O2 Flow Rate FiO2 07/28/16 06:00 100 07/28/16 04:00 28 07/28/16 04:00 109 07/28/16 04:00 99.2 109 22 102/67 100 07/28/16 02:00 102 07/28/16 00:00 119 07/28/16 00:00 99.3 119 22 113/63 100 07/28/16 00:00 28 07/27/16 22:00 113 07/27/16 20:17 99 T-piece 5.00 07/27/16 20:00 104 07/27/16 20:00 28 07/27/16 20:00 99.4 104 18 100/58 07/27/16 18:00 108 07/27/16 16:00 102 07/27/16 16:00 28 07/27/16 16:00 99.0 102 22 103/63 95 07/27/16 14:00 96 07/27/16 12:00 28 07/27/16 12:00 121 07/27/16 12:00 99.2 121 20 126/80 100 07/27/16 10:00 119 07/27/16 08:39 20 I/O 07/27/16 07/27/16 07/27/16 07/28/16 07/28/16 07/28/16 07:00 15:00 23:00 07:00 15:00 23:00 Intake Total 504 ml 661 ml 520 ml 397 ml Output Total 450 ml 400 ml 275 ml 350 ml Balance 54 ml 261 ml 245 ml 47 ml Tube Feeding 444 ml 511 ml 400 ml 337 ml Other 60 ml 150 ml 120 ml 60 ml Output Urine Total 250 ml 250 ml 225 ml 200 ml Stool Total 200 ml 150 ml 50 ml 150 ml Result Diagram: 07/26/1635607/26/16356 Imaging Last Impressions Chest X-Ray 07/25/16599 Signed Impressions: Service Date/Time: Monday, July 25, 2016 05:26 - CONCLUSION: 1. No acute cardiopulmonary disease. Deshaun La MD Lower Extremity Ultrasound 07/14/16 0800 Signed Impressions: Service Date/Time: Thursday, July 14, 2016 10:47 - CONCLUSION: Negative exam with no evidence of deep venous thrombosis. Rico Pedraza MD Abdomen X-Ray 06/26/16 0000 Signed Impressions: Service Date/Time: June 13:08 - CONCLUSION: 1. Nasogastric tube in good position. Benign-appearing bowel gas pattern. Jd Underwood MD Abdomen/Pelvis CT 06/17/16 0000 Signed Impressions: Service Date/Time: Friday, June 17, 2016 04:12 - CONCLUSION: 1. New bibasilar atelectasis. 2. There is some mild dilatation of the small bowel. There is a mild to moderate distention of the colon down to the rectum suggestive of a diffuse adynamic ileus. No definite mechanical obstruction is seen. 3. Otherwise, no other significant changes compared to the prior study. Andi Luna MD Brain MRI 06/15/16 0000 Signed Impressions: Service Date/Time: Wednesday, June 15, 2016 09:10 - CONCLUSION: No acute abnormality seen. 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 Reginaldo Cain MD Head Magnetic Resonance Angiography 06/14/16 0000 Signed Impressions: Service Date/Time: Tuesday, June 14, 2016 18:23 - CONCLUSION: No evidence of vessel truncation or aneurysm. Simone Graham MD Liver Ultrasound 06/13/16 0000 Signed Impressions: Service Date/Time: Monday, June 13, 2016 09:42 - CONCLUSION: 1. Small amount free fluid identified medial to the lower pole of the right kidney. 2. Slight increased hepatic echotexture suggesting some degree of fatty infiltration. 3. Please note the body and tail of the pancreas are obscured by overlying bowel gas. The head neck and uncinate process are sonographically intact. Mauro Leslie MD Head CT 06/12/16 1657 Signed Impressions: Service Date/Time: May 21:37 - CONCLUSION: Unremarkable study. Jose Martinez MD Renal Ultrasound 06/12/16 0000 Signed Impressions: Service Date/Time: May 23:51 - CONCLUSION: 1. Mild pelvocaliectasis on the right. No hydronephrosis involving either kidney. Simone Woody Jr., MD Chest CT 06/12/16 0000 Signed Impressions: Service Date/Time: May 21:39 - CONCLUSION: Right upper lobe parenchymal process may represent pneumonia, however follow up is suggested with repeat noncontrast chest CT in 2-4 weeksafter appropriate clinical therapy. Jose Martinez MD Objective Remarks GENERAL: 56-year-old female, eyes and mouth are open on ventilator via trach. CARDIOVASCULAR: Tachycardic, RR. Without murmurs. RESPIRATORY: Transmitted upper airway sounds. Diminished breath sounds in bases. No wheezing noted GASTROINTESTINAL: Abdomen soft, non-tender, nondistended. Noted PEG clean dry and intact MUSCULOSKELETAL: contractures noted in her hands. EXTREMITIES: No significant peripheral edema NEURO: Eyes are open, mouth is open. she does seems to shake her head when asked a question, and some movement noted in feet A/P Assessment and Plan Encephalopathy Left basal ganglia/IC CVA On no sedation. Monitor neuro status and avoid any sedatives. CT brain: No acute findings. UDS+ +Benzos MRA brain 06/14- Unremarkable. MRI brain 06/14 revealed lacunar infarct left basal ganglia left posterior and internal capsule s/p LP showed clear CSF and 15 WBC. EEG: Bihemispheric slowing, small sharp waves b/l Neuro on case- Dr. Boggs, On Keppra 500mg by PEG Q12 Continue Lyrica 25 mg twice a day encircling 100 mg by mouth daily/home medications Continue baclofen 10 mg 3 times a day for muscle spasms Continue as needed fentanyl 50 mcg f as needed for pain management Pulm: Vent dependent respiratory failure Acute hypoxemic respiratory failure Probable aspiration/HCAP with R volume loss Continue with vent support keep sat >92% Bronchodilators every 6 hours and as needed, ICU vent bundle. s/p perc trach placed 07/03, 8.[address] Shankar Pulm toilet, [facility] care, Continue CPAP/TP's trials as cherie CXR 07/14- No acute disease. CV: Hypertension Monitor HR and BP keep MAP>65mmHg. On Lopressor 50 mg Q6 for HR/BP control Norvasc 5mg PO daily/home medication : Monitor renal function, I/O's, avoid nephrotoxins. Electrolytes replacement per protocol. Renal US: No hydronephrosis. Renal has followed- Dr. Corral GI/liver: Gastroesophageal reflux disease On Pepcid 20 milligrams by PEG qhs, tube feeds with Glucerna 1.5@60ml/hr Monitor LFT's (resolved), US liver: Fatty liver. Elevated urinary copper - GI is following. CT abdomen/pelvis 06/17- findings suggestive of adynamic ileus. No mechanical obstruction. On Reglan 5mg Iv q8 PRN, 06/[address] Davis ID: Staph aureus pneumonia Enterococcus species UTI - Continue abx ( Cipro) per ID, monitor for signs of infections ( Fever, WBC) --Ciff PCR negative on 07/18 Pertinent cultures: 06/12 Urine cx: E.coli 06/12 BC: No growth 06/12 CSG: NGTD 06/15 urine: E coli, sputum: MSSA 06/26: Blood sputum negative and urine cultures Pseudomonas 06/27 -bronchoscopy no growth pro-calcitonin level 0.23 on 07/13, blood cultures, urine cxs from 07/13- NGTD Urine cx 07/14 Enterobacter, Group D enterococcus, Follow up on urine cx from 07/21 revealed C. albicans and enterococcus species including faecalis on Cipro 500 twice a day until 07/26 and Diflucan 100 daily per ID Heme: Normocytic anemia Leukocytosis Monitor CBC Hep plt ab negative. 06/28-Transfused 2 units of PRBCs Endo: SSI for glycemic control, TSH level: 2.5 GI Prophylaxis with Pepcid DVT prophylaxis with SCD's, Heparin SQ 07/14 Doppler US LE negative for DVT Discharge Planning Palliative care Dr. Venegas, following to assist with deciding goals of therapy. Patient's wishes to continue full CODE STATUS at this time, and continued aggressive treatment/therapies. Case management assisting w LTAC placement. Gordon MESSINA to Sean , case management following. Anamika Luther MD Jul 28, 2016 08:11
[2016-07-28] MEDS: RESP: ALBUTEROL 2.5 MG/IPRATROPIUM 0.5 MG NEB (SCH) NEB ×4 (08:27→21:52)
[2016-07-28] MEDS: HEPARIN SODIUM - SQ 10,000 UNITS/ML VIAL SQ SCH ×2 (09:05→20:46)
[2016-07-28] MEDS: levETIRAcetam 500 MG/5 ML UDC NG SCH ×2 (09:05→20:47)
[2016-07-28] MEDS: amLODIPine BESYLATE 5 MG TAB PO SCH (09:06)
[2016-07-28] MEDS: SODIUM CHLORIDE 0.9% FLUSH 10 ML FLUSH IV FLUSH SCH ×2 (09:06→20:47)
[2016-07-28] MEDS: BACLOFEN 10 MG TAB PO SCH ×3 (09:06→16:34)
[2016-07-28] MEDS: PREGABALIN 75 MG CAP PO SCH ×2 (09:06→20:47)
[2016-07-28] MEDS: FAMOTIDINE 20 MG TAB NG SCH (09:06)
[2016-07-28] MEDS: FLUCONAZOLE 100 MG TAB PO SCH (09:06)
[2016-07-28] MEDS: CHLORHEXIDINE 0.12% (ORAL KIT) 15 ML CUP MT SCH ×2 (09:07→20:00)
[2016-07-28] MEDS: LABETALOL HCL 100 MG/20 ML VIAL IV PUSH PRN ×2 (12:53→16:33)
--- NOTE | 2016-07-28 19:25 | HHI.PR ---
Subjective Remarks Lethargic and remains on a T Bar at 28 %. Opens eyes and responds to commands ,and has weakness of all limbs. Trach site OK. has Oral secretions. Tolerates feeds Objective Vital Signs Date Time Temp Pulse Resp B/P Pulse Ox O2 Delivery O2 Flow Rate FiO2 07/28/16 18:00 96 07/28/16 17:00 108 07/28/16 16:00 107 07/28/16 16:00 99.2 107 22 104/72 100 07/28/16 16:00 28 07/28/16 14:00 100 07/28/16 13:00 112 07/28/16 12:00 120 07/28/16 12:00 28 07/28/16 12:00 98.9 120 20 108/69 100 07/28/16 11:00 116 07/28/16 10:06 18 07/28/16 10:00 118 07/28/16 09:00 120 07/28/16 08:28 99 T-piece 6.00 28 07/28/16 08:00 99.5 106 27 103/59 100 07/28/16 08:00 106 07/28/16 08:00 28 07/28/16 06:00 100 07/28/16 04:00 28 07/28/16 04:00 109 07/28/16 04:00 99.2 109 22 102/67 100 07/28/16 02:00 102 07/28/16 00:00 119 07/28/16 00:00 99.3 119 22 113/63 100 07/28/16 00:00 28 07/27/16 22:00 113 07/27/16 20:17 99 T-piece 5.00 07/27/16 20:00 104 07/27/16 20:00 28 07/27/16 20:00 99.4 104 18 100/58 I/O 07/27/16 07/27/16 07/27/16 07/28/16 07/28/16 07/28/16 07:00 15:00 23:00 07:00 15:00 23:00 Intake Total 504 ml 661 ml 520 ml 397 ml 717 ml Output Total 450 ml 400 ml 275 ml 350 ml 750 ml Balance 54 ml 261 ml 245 ml 47 ml -33 ml Tube Feeding 444 ml 511 ml 400 ml 337 ml 597 ml Other 60 ml 150 ml 120 ml 60 ml 120 ml Output Urine Total 250 ml 250 ml 225 ml 200 ml 300 ml Stool Total 200 ml 150 ml 50 ml 150 ml 450 ml Result Diagram: 07/26/1635607/26/16356 Objective Remarks HEENT: Pupils reactive. Sclerae are not icteric. Throat secretions. Ears and nose - no inflammation. NECK: Supple with trach tube in place with no thyromegaly. CHEST: Equal movements with decreased breath sounds over the bases with occasional wheezes over both lung rosenthal. HEART: The heart sounds are irregular S1-S2 with no murmur. ABDOMEN: Soft, protuberant without masses. EXTREMITIES: Weakness of the extremities, mostly the right side, but moves feet at times.Has muscle wasting. Cranial nerves not tested RECTAL: Exam is deferred. SKIN: Dry and warm. Assessment and Plan Assessment and Plan IMPRESSION 1. Hypercapnic respiratory failure. 2. History of hypertension 3. History of CVA 4. Acute kidney injury with dehydration 5. Status post tracheostomy and PEG tube 6. Resolving acute kidney injury. Plan : 1. T Bar at 28 %. 2.Suction trach and lavage prn. 3. Nebs qid Duoneb. 4. PT evaluation. 5. Tube feeds at 60 CC 6. Transfer to tele floor. 7. Chest X ray in am 8. PT and OT evaluation Celena Wakefield MD Jul 28, 2016 19:25
[2016-07-28] MEDS: CHLORHEXIDINE GLUCONATE 2 % 1 PACK (2 CLOTHS) TOP SCH (20:47)
[2016-07-29] VITALS: BP 126/80; PULSE 106; PULSE 109; RESP 26; TEMP 99.6; O2SAT 100
[2016-07-29 04:00] VITALS: BP 132/94; PULSE 114; RESP 27; TEMP 99.4; O2SAT 99
[2016-07-29] MEDS: ACETAMINOPHEN 650 MG/20.3 ML UDC PO PRN (04:00)
[2016-07-29] MEDS: METOPROLOL TARTRATE 50 MG TAB PO SCH ×3 (05:15→11:34)
[2016-07-29] MEDS: NYSTATIN 100,000 U/GM PWD 15 GM BTL TOPICAL SCH ×2 (05:15→14:24)
[2016-07-29 06:34] LABS: AUTOMATED NEUTROPHIL # 4.9 TH/MM3 (1.8-7.7); BASOPHIL % 0.2 % (0.0-2.0); EOSINOPHIL % 0.6 % (0.0-4.0); HEMATOCRIT 33.4 % (35.0-46.0); HEMO FLAGS DIFF FINAL; LYMPH % 25.4 % (9.0-44.0); LYMPHOCYTE # 1.9 TH/MM3 (1.0-4.8); MEAN CORPUSCULAR HEMOGLOBIN 27.7 PG (27.0-34.0); MONO % 6.7 % (0.0-8.0); NEUT % 67.1 % (16.0-70.0); PLATELET COUNT 248 TH/MM3 (150-450); RED BLOOD COUNT 3.98 MIL/MM3 (4.00-5.30); RED CELL DISTRIBUTION WIDTH 17.6 % (11.6-17.2); WHITE BLOOD COUNT 7.3 TH/MM3 (4.0-11.0)
[2016-07-29] MEDS ORDERED: FAMO20TA2 NG (07:49)
[2016-07-29] MEDS ORDERED: LEVE500S NG (07:49)
[2016-07-29] MEDS ORDERED: HEPA10003 SQ (07:49)
[2016-07-29] MEDS ORDERED: AMLO5 PO (07:49)
[2016-07-29 08:00] VITALS: BP 118/73; PULSE 108; RESP 24; TEMP 99.2; O2SAT 100
[2016-07-29 08:05] VITALS: O2SAT 100
[2016-07-29] MEDS: RESP: ALBUTEROL 2.5 MG/IPRATROPIUM 0.5 MG NEB (SCH) NEB ×2 (08:05→11:59)
[2016-07-29] MEDS: BACLOFEN 10 MG TAB PO SCH ×2 (08:33→14:23)
[2016-07-29] MEDS: PREGABALIN 75 MG CAP PO SCH (08:33)
[2016-07-29] MEDS: levETIRAcetam 500 MG/5 ML UDC NG SCH (08:33)
[2016-07-29] MEDS: CHLORHEXIDINE 0.12% (ORAL KIT) 15 ML CUP MT SCH (08:33)
[2016-07-29] MEDS: amLODIPine BESYLATE 5 MG TAB PO SCH (08:33)
[2016-07-29] MEDS: FAMOTIDINE 20 MG TAB NG SCH (08:33)
[2016-07-29] MEDS: FLUCONAZOLE 100 MG TAB PO SCH (08:33)
[2016-07-29] MEDS: HEPARIN SODIUM - SQ 10,000 UNITS/ML VIAL SQ SCH (08:34)
[2016-07-29] MEDS: SODIUM CHLORIDE 0.9% FLUSH 10 ML FLUSH IV FLUSH SCH (08:35)
[2016-07-29] MEDS ORDERED: MORPHINE SULFATE ORAL SOLN 10 MG/0.5 ML SYRINGE PO PRN (09:00)
[2016-07-29] MEDS ORDERED: MORP1SOL3 PO (09:03)
[2016-07-29 12:00] VITALS: BP 117/73; PULSE 107; RESP 23; TEMP 99.1; O2SAT 100
--- NOTE | 2016-07-29 12:03 | HHI.DS ---
Discharge Summary Admission Date Jun 12, 2016 at 18:35 Discharge Date: Jul 29, 2016 Admitting Diagnosis sepsis, respiratory failure, altered mental status (1) Acute CVA (cerebrovascular accident) ICD Code: I63.9 Diagnosis: Principal (2) Seizure ICD Code: R56.9 Diagnosis: Principal (3) Hypoalbuminemia ICD Code: E88.09 Diagnosis: Secondary (4) Hypernatremia ICD Code: E87.0 Diagnosis: Secondary (5) Dehydration ICD Code: E86.0 Diagnosis: Secondary (6) history of ischemic strokes 2010, with right hemiplegia Diagnosis: Secondary (7) encephalopathy Diagnosis: Secondary (8) acute kidney injury, resolved Diagnosis: Secondary Procedures intubation/ trach placement Brief History - From Admission 56-year-old female brought in by EMS emergently as altered mental status, hypoxia and temperature 104. Patient has a history of CVA many years ago. Per caregiver she didn't feel well since yesterday and wasn't taking any of medications including baclofen. Patient was unable to communicate due to her altered mental status. As per EMS not much history was available from the family but she has history of CVA as baseline but communicates. In the emergency department patient's oxygen saturation was low 70s upon EMS arrival. They had her on oxygen via nonrebreather and sats of 93%. GCS was 6 and she was intubated by ER attending for an airway protection. CBC/BMP: 07/29/16 0545 07/26/16 0357 Significant Findings Laboratory Tests Test 07/29/16 05:45 Red Blood Count 3.98 MIL/MM3 (4.00-5.30) Hemoglobin 11.0 GM/DL (11.6-15.3) Hematocrit 33.4 % (35.0-46.0) Red Cell Distribution Width 17.6 % (11.6-17.2) Imaging Last Impressions Chest X-Ray 07/25/16 0600 Signed Impressions: Service Date/Time: Monday, July 25, 2016 05:26 - CONCLUSION: 1. No acute cardiopulmonary disease. Deshaun La MD Lower Extremity Ultrasound 07/14/16 0800 Signed Impressions: Service Date/Time: Thursday, July 14, 2016 10:47 - CONCLUSION: Negative exam with no evidence of deep venous thrombosis. Rico Pedraza MD Abdomen X-Ray 06/26/16 0000 Signed Impressions: Service Date/Time: June 13:08 - CONCLUSION: 1. Nasogastric tube in good position. Benign-appearing bowel gas pattern. Jd Underwood MD Abdomen/Pelvis CT 06/17/16 0000 Signed Impressions: Service Date/Time: Friday, June 17, 2016 04:12 - CONCLUSION: 1. New bibasilar atelectasis. 2. There is some mild dilatation of the small bowel. There is a mild to moderate distention of the colon down to the rectum suggestive of a diffuse adynamic ileus. No definite mechanical obstruction is seen. 3. Otherwise, no other significant changes compared to the prior study. Andi Luna MD Brain MRI 06/15/16 0000 Signed Impressions: Service Date/Time: Wednesday, June 15, 2016 09:10 - CONCLUSION: No acute abnormality seen. 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 Reginaldo Cain MD Head Magnetic Resonance Angiography 06/14/16 0000 Signed Impressions: Service Date/Time: Tuesday, June 14, 2016 18:23 - CONCLUSION: No evidence of vessel truncation or aneurysm. Simone Graham MD Liver Ultrasound 06/13/16 0000 Signed Impressions: Service Date/Time: Monday, June 13, 2016 09:42 - CONCLUSION: 1. Small amount free fluid identified medial to the lower pole of the right kidney. 2. Slight increased hepatic echotexture suggesting some degree of fatty infiltration. 3. Please note the body and tail of the pancreas are obscured by overlying bowel gas. The head neck and uncinate process are sonographically intact. Mauro Leslie MD Head CT 06/12/16 1657 Signed Impressions: Service Date/Time: May 21:37 - CONCLUSION: Unremarkable study. Jose Martinez MD Renal Ultrasound 06/12/16 0000 Signed Impressions: Service Date/Time: May 23:51 - CONCLUSION: 1. Mild pelvocaliectasis on the right. No hydronephrosis involving either kidney. Simone Woody Jr., MD Chest CT 06/12/16 0000 Signed Impressions: Service Date/Time: May 21:39 - CONCLUSION: Right upper lobe parenchymal process may represent pneumonia, however follow up is suggested with repeat noncontrast chest CT in 2-4 weeksafter appropriate clinical therapy. Jose Martinez MD PE at Discharge GENERAL: Pt encountered laying a bed, eyes open, mouth agape, NAD SKIN: Warm and dry. HEAD: Normocephalic. EYES: No scleral icterus. No injection or drainage. NECK: Supple, trachea midline. No lymphadenopathy. T-Piece in place. CARDIOVASCULAR: Tachycardic rate with regular rhythm without murmurs, gallops, or rubs. RESPIRATORY: Breath sounds equal bilaterally. No accessory muscle use. On ventilator. GASTROINTESTINAL: Abdomen soft, non-tender, nondistended. G tube present. MUSCULOSKELETAL: No cyanosis, or edema. Neurological: Pt verbally non-responsive, limited response to verbal commands, spontaneous movement of both lower extremities and left hand; right hand in splint to prevent contracture. Pt update on day of discharge Patient complained of some pain at the trach site, she was also noted tachycardic in the morning 2/2 pain. Received morphine. She is more awake and alert. She is moving arms and legs by commands. No n/v/d/c. Hospital Course Encephalopathy. Improving Left basal ganglia/IC CVA Monitor neuro status and avoid any sedatives. CT brain: No acute findings. UDS+ +Benzos MRA brain 06/14- Unremarkable. MRI brain 06/14 revealed lacunar infarct left basal ganglia left posterior and internal capsule s/p LP showed clear CSF and 15 WBC. EEG: Bihemispheric slowing, small sharp waves b/l Neuro on case- Dr. Boggs, On Keppra 500mg by PEG Q12 Continue Lyrica 25 mg twice a day encircling 100 mg by mouth daily/home medications Continue baclofen 10 mg 3 times a day for muscle spasms Dc fentanyl IV 50 mcg prn,on morphine liquid 5 mg tube feeding prn for pain. Pulm: Vent dependent respiratory failure Acute hypoxemic respiratory failure Probable aspiration/HCAP with R volume loss Continue with vent support keep sat >92% Bronchodilators every 6 hours and as needed, ICU vent bundle. s/p perc trach placed 07/03, 8.[address] Shankar Pulilan toilet, trach care, Continue CPAP/TP's trials as cherie CXR 07/14- No acute disease. CV: Hypertension Monitor HR and BP keep MAP>65mmHg. On Lopressor 50 mg Q6 for HR/BP control Norvasc 5mg PO daily/home medication : Monitor renal function, I/O's, avoid nephrotoxins. Electrolytes replacement per protocol. Renal US: No hydronephrosis. Renal has followed- Dr. Corral GI/liver: Gastroesophageal reflux disease On Pepcid 20 milligrams by PEG qhs, tube feeds with Glucerna 1.5@60ml/hr Monitor LFT's (resolved), US liver: Fatty liver. Elevated urinary copper - GI is following. CT abdomen/pelvis 06/17- findings suggestive of adynamic ileus. No mechanical obstruction. On Reglan 5mg Iv q8 PRN, 06/[address] Davis ID: Staph aureus pneumonia Enterococcus species UTI - Continue abx ( Cipro) per ID, monitor for signs of infections ( Fever, WBC) --Ciff PCR negative on 07/18 Pertinent cultures: 06/12 Urine cx: E.coli 06/12 BC: No growth 06/12 CSG: NGTD 06/15 urine: E coli, sputum: MSSA 06/26: Blood sputum negative and urine cultures Pseudomonas 06/27 -bronchoscopy no growth pro-calcitonin level 0.23 on 07/13, blood cultures, urine cxs from 07/13- NGTD Urine cx 07/14 Enterobacter, Group D enterococcus, Follow up on urine cx from 07/21 revealed C. albicans and enterococcus species including faecalis on Cipro 500 twice a day until 07/26 and Diflucan 100 daily per ID Heme: Normocytic anemia Leukocytosis Monitor CBC Hep plt ab negative. 06/28-Transfused 2 units of PRBCs Endo: SSI for glycemic control, TSH level: 2.5 GI Prophylaxis with Pepcid. On tube feedings: Glucerna 1.5 goal of 60 cc /hr DVT prophylaxis with SCD's, Heparin SQ 07/14 Doppler US LE negative for DVT Discharge Planning Palliative care Dr. Venegas, following to assist with deciding goals of therapy. Patient's wishes to continue full CODE STATUS at this time, and continued aggressive treatment/therapies. Case management assisting w LTAC placement. Poss DC to [facility] , case management following. patient is DC in stable condition to SNF -[facility]. To follow up as OPwith PCP and consultants. Pt Condition on Discharge: Stable Discharge Disposition: Discharge to SNF Discharge Time: > 30 minutes Discharge Instructions DIET: Follow Instructions for: On Tube Feeding Additional Diet Instructions: Glucerna 1.5 goal of 60 cc /hr Activities you can perform: Regular-No Restrictions Follow up Referrals: Gastroenterology - 2 Weeks PCP Follow-up - 3-5 Days Pulmonology - 1 Week with Celena Wakefield MD New Medications: Morphine Liq (Morphine Liq) 10 Mg/5 Ml Liq 5 MG PO Q4H Pain Management #30 Ref 0 ML Amlodipine (Norvasc) 5 Mg Tab 5 MG PO DAILY Blood Pressure Management #30 TAB Famotidine (Famotidine) 20 Mg Tab 20 MG NG DAILY gi protection #30 TAB Heparin Sodium (Porcine) (Heparin Sodium) 10,000 Unit/Ml Inj 5000 UNITS SQ Q12HR Blood Clot Prevention #30 INJECTION Levetiracetam Liq (Keppra Liq) 500 Mg/5 Ml Soln 500 MG NG Q12HR seizures #60 ML Continued Medications: Baclofen (Baclofen) 10 Mg Tab 10 MG PO TID Muscle Spasm Ref 0 TAB Meclizine (Meclizine) 25 Mg Tab 25 MG PO QID PRN VERTIGO Ref 0 TAB Pregabalin (Lyrica) 75 Mg Cap 75 MG PO BID #60 Ref 0 CAP Ranitidine (Ranitidine) 150 Mg Tab 150 MG PO BID Heartburn Management #60 Ref 0 TAB Sertraline (Sertraline) 100 Mg Tab 100 MG PO DAILY #30 Ref 0 TAB Temazepam (Temazepam) 15 Mg Cap 15 MG PO HS PRN INSOMNIA #30 Ref 0 CAP Discontinued Medications: Amlodipine (Amlodipine) 10 Mg Tab 10 MG PO DAILY Blood Pressure Management #30 Ref 0 TAB Anamika Luther MD Jul 29, 2016 12:03
--- NOTE | 2016-07-29 12:22 | HHI.PR ---
Subjective Remarks Lethargic and remains on a T Bar at 28 %. Opens eyes and responds to commands ,and has weakness of all limbs. Trach site OK. has Oral secretions and trach secretions. Tolerates feeds. Will go to [facility] today Objective Vital Signs Date Time Temp Pulse Resp B/P Pulse Ox O2 Delivery O2 Flow Rate FiO2 07/29/16 09:33 16 07/29/16 08:05 100 T-piece 6.00 28 07/29/16 04:00 28 07/29/16 04:00 114 07/29/16 04:00 99.4 114 27 132/94 99 07/29/16 00:00 28 07/29/16 00:00 99.6 106 26 126/80 100 07/29/16 00:00 106 07/28/16 21:52 100 T-piece 6.00 28 07/28/16 20:00 28 07/28/16 20:00 109 07/28/16 20:00 99.3 109 27 108/58 99 07/28/16 18:00 96 07/28/16 17:00 108 07/28/16 16:00 107 07/28/16 16:00 99.2 107 22 104/72 100 07/28/16 16:00 28 07/28/16 14:00 100 07/28/16 13:00 112 I/O 07/28/16 07/28/16 07/28/16 07/29/16 07/29/16 07/29/16 07:00 15:00 23:00 07:00 15:00 23:00 Intake Total 397 ml 717 ml 532 ml 465 ml Output Total 350 ml 750 ml 250 ml 350 ml Balance 47 ml -33 ml 282 ml 115 ml Tube Feeding 337 ml 597 ml 412 ml 465 ml Other 60 ml 120 ml 120 ml Output Urine Total 200 ml 300 ml 200 ml 250 ml Stool Total 150 ml 450 ml 50 ml 100 ml Result Diagram: 07/29/16 0545 07/26/16 0357 Objective Remarks HEENT: Pupils reactive. Sclerae are not icteric. Throat secretions. Ears and nose - no inflammation. NECK: Supple with trach tube in place with no thyromegaly. CHEST: Equal movements with decreased breath sounds over the bases with occasional wheezes over both lung rosenthal. HEART: The heart sounds are irregular S1-S2 with no murmur. ABDOMEN: Soft, protuberant without masses. EXTREMITIES: Weakness of the extremities, mostly the right side, but moves feet at times.Has muscle wasting. Neuro: Responsive and cooperative. Decreased reflexes RECTAL: Exam is deferred. SKIN: Dry and warm. Assessment and Plan Assessment and Plan IMPRESSION 1. Hypercapnic respiratory failure. 2. History of hypertension 3. History of CVA 4. Acute kidney injury with dehydration 5. Status post tracheostomy and PEG tube 6. Resolving acute kidney injury. Plan : 1. T Bar at 28 %. 2.Suction trach and lavage prn. 3. Nebs qid Duoneb. 4. PT evaluation. 5. Tube feeds at 60 CC 6. Transfer to [facility] 7. Use Levsin .125 mg tid prn. Celena Wakefield MD Jul 29, 2016 12:22
[2016-07-29 12:35] VITALS: RESP 22
== END 2016-07-29 15:30 | DRG 4 ==
LOC: NEPE 16:26 → NEDA 18:35 → HIMN 22:00
PROVIDERS: ADMIT Hospitalist; ATTEND Hospitalist
PROC: 5A1955Z Respiratory Ventilation, Greater than 96 Consecutive Hours (ICD-10-PCS; 2016-06-12)
PROC: 009U3ZX Drainage of Spinal Canal, Percutaneous Approach, Diagnostic (ICD-10-PCS; 2016-06-12)
PROC: 0BH17EZ Insertion of Endotracheal Airway into Trachea, Via Natural or Artificial Opening (ICD-10-PCS; 2016-06-12)
PROC: 02HV33Z Insertion of Infusion Device into Superior Vena Cava, Percutaneous Approach (ICD-10-PCS; 2016-06-12)
PROC: 0BH17EZ Insertion of Endotracheal Airway into Trachea, Via Natural or Artificial Opening (ICD-10-PCS; 2016-06-26)
PROC: 0DH63UZ Insertion of Feeding Device into Stomach, Percutaneous Approach (ICD-10-PCS; 2016-06-27)
PROC: 0B9D8ZX Drainage of Right Middle Lung Lobe, Via Natural or Artificial Opening Endoscopic, Diagnostic (ICD-10-PCS; 2016-06-27)
PROC: 0DJ08ZZ Inspection of Upper Intestinal Tract, Via Natural or Artificial Opening Endoscopic (ICD-10-PCS; 2016-06-27)
PROC: 30233N1 Transfusion of Nonautologous Red Blood Cells into Peripheral Vein, Percutaneous Approach (ICD-10-PCS; 2016-06-29)
PROC: 0B113F4 Bypass Trachea to Cutaneous with Tracheostomy Device, Percutaneous Approach (ICD-10-PCS; principal; 2016-07-03)
PROC: 0BJ08ZZ Inspection of Tracheobronchial Tree, Via Natural or Artificial Opening Endoscopic (ICD-10-PCS; 2016-07-03)
DX: A41.9 Sepsis, unspecified organism (principal); N17.0 Acute kidney failure with tubular necrosis; J69.0 Pneumonitis due to inhalation of food and vomit; G93.40 Encephalopathy, unspecified; J15.211 Pneumonia due to Methicillin susceptible Staphylococcus aureus; E87.0 Hyperosmolality and hypernatremia; K52.1 Toxic gastroenteritis and colitis; E87.2 Acidosis; D69.59 Other secondary thrombocytopenia; J96.02 Acute respiratory failure with hypercapnia; J96.01 Acute respiratory failure with hypoxia; K56.7 Ileus, unspecified; I69.354 Hemiplegia and hemiparesis following cerebral infarction affecting left non-dominant side; M62.82 Rhabdomyolysis; N39.0 Urinary tract infection, site not specified; J98.11 Atelectasis; T83.511A Infection and inflammatory reaction due to indwelling urethral catheter, initial encounter; I95.9 Hypotension, unspecified; E86.0 Dehydration; R65.20 Severe sepsis without septic shock; R40.2432 Glasgow coma scale score 3-8, at arrival to emergency department; E87.6 Hypokalemia; D64.9 Anemia, unspecified; B96.20 Unspecified Escherichia coli [E. coli] as the cause of diseases classified elsewhere; I69.398 Other sequelae of cerebral infarction; I10 Essential (primary) hypertension; R74.0 Nonspecific elevation of levels of transaminase and lactic acid dehydrogenase [LDH]; R13.10 Dysphagia, unspecified; H91.90 Unspecified hearing loss, unspecified ear; K05.10 Chronic gingivitis, plaque induced; K76.0 Fatty (change of) liver, not elsewhere classified; K29.70 Gastritis, unspecified, without bleeding; J98.09 Other diseases of bronchus, not elsewhere classified; E88.09 Other disorders of plasma-protein metabolism, not elsewhere classified; R56.9 Unspecified convulsions; K21.9 Gastro-esophageal reflux disease without esophagitis; B96.89 Other specified bacterial agents as the cause of diseases classified elsewhere; T36.95XA Adverse effect of unspecified systemic antibiotic, initial encounter; Y95 Nosocomial condition; Y92.239 Unspecified place in hospital as the place of occurrence of the external cause; Z74.01 Bed confinement status; Z82.3 Family history of stroke
CPT/HCPCS: 31500; 31600; 31624; 36430; 36556; 36600; 51702; 62270; 70450; 70544; 70551; 71010; 71250; 74000; 74176; 74177; 76705; 76775; 76937; 80048; 80053; 80074; 80076; 80202; 80307; 81001; 82103; 82105; 82140; 82272; 82390; 82525; 82550; 82552; 82728; 82805; 82948; 83520; 83540; 83550; 83605; 83615; 83735; 83935; 84100; 84132; 84145; 84300; 84443; 84702; 85007; 85025; 85027; 85384; 85610; 85730; 86022; 86038; 86256; 86403; 86592; 86618; 86850; 86900; 86901; 86920; 87015; 87040; 87070; 87077; 87086; 87102; 87116; 87147; 87186; 87205; 87206; 87493; 87497; 87529; 87641; 89051; 93005; 93970; 94003; 94010; 94640; 94664; 95819; 96361; 96374; 96375; 99292; A7520; A7521; J0131; J0330; J0360; J0456; J0692; J0696; J1644; J1940; J1953; J2020; J2250; J2543; J2765; J2997; J3010; J3370; J3480; J7030; J7040; J7042; J7050; J7070; J7608; P9016; Q9963; Q9967